=== PATIENT | male | born 1935 | race Hispanic/Latino ===

== ENCOUNTER 2016-08-30 09:54 | Inpatient (IN) | payer MEDICARE ==
[2016-08-30] MEDS ORDERED: Sodium Chloride 0.9% 1,000 ML IV ONE ×2 (10:59→13:29)
--- NOTE | 2016-08-30 10:59 | C.PDOC ---
History Of Present Illness 81-year-old male, presents to the emergency department with complaints of dizziness. patient states that while he was at home this morning, he woke up with dizziness, and when he got out of bed, he fell. States witness called EMS and he was brought to ED for evaluation. Patient notes "I feel dehydrated." Denies chest pain, shortness of breath, numbness/weakness, or any other associated symptoms. No other complaints at this time. 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) Past Medical History Reviewed: Historical Data, Nursing Documentation, Vital Signs Vital Signs: Last Vital Signs Temp 98.3 F 08/30/16 15:30 Pulse 88 08/30/16 15:30 Resp 20 08/30/16 15:30 BP 148/72 08/30/16 15:30 Pulse Ox 99 08/30/16 18:33 - Medical History PMH: No Chronic Diseases Surgical History: No Surg Hx - [facility] Procedures CLOSURE SKIN & SUBCUTANEOUS NEC (11/16/12) Family History: States: No Known Family Hx - Social History Hx Tobacco Use: No Hx Alcohol Use: No Hx Substance Use: No - Immunization History Hx Tetanus Toxoid Vaccination: No Hx Influenza Vaccination: Yes Hx Pneumococcal Vaccination: No Review Of Systems Except As Marked, All Systems Reviewed And Found Negative. Constitutional: Negative for: Fever, Chills Cardiovascular: Negative for: Chest Pain, Palpitations Respiratory: Negative for: Shortness of Breath Gastrointestinal: Negative for: Nausea, Vomiting Musculoskeletal: Negative for: Neck Pain, Back Pain Neurological: Positive for: Dizziness. Negative for: Weakness, Numbness, Headache Physical Exam - Physical Exam Appears: Non-toxic, No Acute Distress, Chronically Ill Skin: Warm, Dry, No Rash Head: Normacephalic, Other (3.5cm laceration above right eyebrow) Eye(s): bilateral: Normal Inspection, PERRL, EOMI Ear(s): Bilateral: Normal Oral Mucosa: Moist Lips: Normal Appearing Neck: Normal ROM, No Midline Cervical Tenderness, No Paracervical Tenderness, Supple Chest: Symmetrical, No Tenderness Cardiovascular: Rhythm Regular, No Friction Rub, No Murmur Respiratory: Normal Breath Sounds, No Accessory Muscle Use, No Rales, No Rhonchi , No Wheezing Gastrointestinal/Abdominal: Soft, No Tenderness Back: Normal Inspection, No CVA Tenderness, No Vertebral Tenderness, No Paraspinal Tenderness Extremity: Normal ROM, No Tenderness, No Swelling Neurological/Psych: Oriented x3, Normal Speech, Normal Cranial Nerves, Normal Motor, Normal Sensation Gait: Steady ED Course And Treatment - Laboratory Results Result Diagrams: 08/30/16 11:04 08/30/16 11:04 O2 Sat by Pulse Oximetry: 99 (on RA) Pulse Ox Interpretation: Normal Procedure: Wound Repair - Time Performed Time Performed: 16:30 - Time Out Time Out: Side verified, Site verified - Procedure Procedure: Wound Repair: forehead laceration - Consent Obtained Consent obtained: Verbal - Performed by Performed by: Mid-level Provider (Umberto) - Indications Indication(s):: Laceration - Location Shape:: Linear Dimensions Length cm: 3.5 Depth:: Epidermis - Anesthetic Technique Anesthetic Technique: Local Local/Regional Anesthetic:: Lidocaine 2% w/epi - Debris Debris:: None - Complexity Complexity:: Simple (one layer) - Wound repair method Sutures:: # (five), Size (5-0), Type (Prolene), Technique (interrupted) Kelsey:: Tissue glue - Patient tolerated procedure Patient Tolerated Procedure:: Well Disposition - Disposition Disposition: HOSPITALIZED Disposition Time: 15:59 Condition: FAIR - POA Present On Arrival: None - Clinical Impression Clinical Impression: Dizziness, Hyponatremia, Head trauma, Forehead laceration, Syncope, UTI ( urinary tract infection) - 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 - Scribe Statement The provider has reviewed the documentation as recorded by the Scribe (Harpreet Okeefe) All medical record entries made by the Scribe were at my direction and personally dictated by me. I have reviewed the chart and agree that the record accurately reflects my personal performance of the history, physical exam, medical decision making, and the department course for this patient. I have also personally directed, reviewed, and agree with the discharge instructions and disposition.
[2016-08-30 11:21] LABS: BASO % 0.6 % (0.0-2.0); EOS % 0.1 % (0.0-4.0); HEMOGLOBIN 11.7 g/dL (12.0-18.0); LYMPH # 0.7 K/uL (1.0-4.3); LYMPH % 10.5 % (20.0-40.0); MEAN CORPUSCULAR HEMOGLOBIN 28.2 pg (27.0-31.0); MEAN CORPUSCULAR HGB CONC 33.3 g/dL (33.0-37.0); MEAN PLATELET VOLUME 7.2 fL (7.2-11.7); MONO # 0.4 K/uL (0.0-0.8); MONO % 5.4 % (0.0-10.0); NEUT # 5.6 K/uL (1.8-7.0); NEUT % 83.4 % (50.0-75.0); RBC 4.13 Mil/uL (4.40-5.90); RED CELL DISTRIBUTION WIDTH 16.3 % (11.5-14.5); WHITE BLOOD COUNT 6.7 K/uL (4.8-10.8)
[2016-08-30 11:22] LABS: MEAN CELL VOLUME 84.7 fL (80.0-94.0)
[2016-08-30 11:23] LABS: INR 1.1; PROTHROMBIN TIME 12.8 SECONDS (9.7-12.2)
[2016-08-30 11:25] LABS: ALBUMIN 3.1 g/dL (3.5-5.0)
[2016-08-30 11:28] LABS: AST/SGOT 37 U/L (17-59); BLOOD UREA NITROGEN 7 mg/dL (9-20); GFR AFRICAN-AMERICAN > 60; GFR NON-AFRICAN AMERICAN > 60
[2016-08-30 11:29] LABS: ALT/SGPT 17 U/L (21-72); CALCIUM 7.7 mg/dl (8.6-10.4); MAGNESIUM 1.8 mg/dL (1.6-2.3)
[2016-08-30 11:31] LABS: VENOUS BLOOD GAS BASE EXCESS 0.3 mmol/L (0.0-2.0); VENOUS BLOOD GAS PCO2 42 mmHg (40-60); VENOUS BLOOD GAS PO2 18 mm/Hg (30-55); VENOUS BLOOD PH 7.39 (7.32-7.43)
--- NOTE | 2016-08-30 12:10 | RAD ---
Chest x-ray single frontal view History: Sepsis. Comparison: 10/28/2014 Findings: Biapical pleural thickening with upper lobe granulomatous changes. Hyperinflation suggestive for COPD and or emphysematous changes. Again identified are multiple calcifications throughout the bilateral hemithoraces suggestive for calcified pleural calcifications. Persistent right hilar prominence. No gross focal infiltrate or effusion. Heart size within normal limits. Impression: No significant interval change.
[2016-08-30] MEDS ORDERED: Sodium Chloride 0.9% 1,000 ML IV SCH (13:15)
--- NOTE | 2016-08-30 14:07 | CT ---
PROCEDURE: CT HEAD WITHOUT CONTRAST. HISTORY: Dizziness, fall, hx of previous stroke COMPARISON: 10/28/2014. TECHNIQUE: Axial computed tomography images were obtained through the head/brain without intravenous contrast. Radiation dose: Total exam DLP = 1096.08 mGy-cm. This CT exam was performed using one or more of the following dose reduction techniques: Automated exposure control, adjustment of the mA and/or kV according to patient size, and/or use of iterative reconstruction technique. FINDINGS: HEMORRHAGE: No intracranial hemorrhage. BRAIN: There are mild chronic microangiopathic changes. There is no mass, mass effect or abnormal extra-axial fluid collection. There is no territorial infarction. There are coarse atherosclerotic calcifications in the cavernous carotid an vertebral arteries. VENTRICLES: There is moderate age-related global parenchymal volume loss and proportionate enlargement of the ventricles and cortical sulci. CALVARIUM: The skull base and calvarium are normal. PARANASAL SINUSES: There is a retention cyst/ polyp in the right maxillary sinus and mucoperiosteal thickening in the left inferior frontal sinus and anterior ethmoid air cells. The remaining included paranasal sinuses are predominantly clear. MASTOID AIR CELLS: Unremarkable as visualized. No inflammatory changes. OTHER FINDINGS: There is ossifications in the falx cerebri. IMPRESSION: No acute intracranial abnormality. Mild chronic microangiopathic changes and moderate age-related global parenchymal volume loss.
[2016-08-30 14:12] LABS: SQUAMOUS EPITHIAL 2 /hpf (0-5); URINE BACTERIA RARE (<OCC); URINE BILIRUBIN NEGATIVE (NEGATIVE); URINE BLOOD 1+ (NEGATIVE); URINE CLARITY Hazy (Clear); URINE COLOR Yellow (YELLOW); URINE GLUCOSE (UA) NORMAL (Normal); URINE LEUKOCYTE ESTERASE 3+ Leu/uL (Negative); URINE NITRATE NEGATIVE (NEGATIVE); URINE PROTEIN NEGATIVE (NEGATIVE); URINE UROBILINOGEN NORMAL mg/dL (0.2-1.0)
[2016-08-30] MEDS ORDERED: Lidocaine 2% w Epi 1:100,000 Inj IJ ONE (14:37)
[2016-08-30] MEDS ORDERED: Ciprofloxacin 400mg/200ml D5W 400 MG/200 ML BAG IV STA (16:04)
[2016-08-30] MEDS ORDERED: Epinephrine /Lidocaine HCL 1:100,000/2% 30 ml INJ ONE (16:19)
[2016-08-30] MEDS ORDERED: Bacitracin 500 Units/gm Oint Foilpak UD TOP ONE (16:19)
[2016-08-30] MEDS ORDERED: Bacitracin 500 Units/gm Oint Foilpak UD ONE (16:22)
[2016-08-30] MEDS ORDERED: Ciprofloxacin 400mg/200ml D5W 400 MG/200 ML BAG IVPB ONE (16:23)
[2016-08-31] MEDS: Sodium Chloride 0.9% 1,000 ML IV SCH (00:57)
[2016-08-31 07:12] LABS: BASO % 0.5 % (0.0-2.0); EOS % 0.4 % (0.0-4.0); HEMOGLOBIN 9.1 g/dL (12.0-18.0); LYMPH # 0.7 K/uL (1.0-4.3); LYMPH % 12.4 % (20.0-40.0); MEAN CELL VOLUME 84.5 fL (80.0-94.0); MEAN CORPUSCULAR HEMOGLOBIN 28.3 pg (27.0-31.0); MEAN CORPUSCULAR HGB CONC 33.4 g/dL (33.0-37.0); MEAN PLATELET VOLUME 6.8 fL (7.2-11.7); MONO # 0.5 K/uL (0.0-0.8); MONO % 8.6 % (0.0-10.0); NEUT # 4.4 K/uL (1.8-7.0); NEUT % 78.1 % (50.0-75.0); RBC 3.21 Mil/uL (4.40-5.90); RED CELL DISTRIBUTION WIDTH 16.3 % (11.5-14.5); WHITE BLOOD COUNT 5.7 K/uL (4.8-10.8)
[2016-08-31 08:03] LABS: ALBUMIN 2.7 g/dL (3.5-5.0)
[2016-08-31 08:05] LABS: GFR AFRICAN-AMERICAN > 60; GFR NON-AFRICAN AMERICAN > 60
[2016-08-31 08:06] LABS: ALB/GLOB RATIO 0.8 (1.0-2.1); ALT/SGPT 25 U/L (21-72); AST/SGOT 41 U/L (17-59); BLOOD UREA NITROGEN 3 mg/dL (9-20)
[2016-08-31 08:07] LABS: CALCIUM 7.4 mg/dl (8.6-10.4)
[2016-08-31 08:23] LABS: PROLACTIN 14.4 ng/mL (3.7-17.9)
--- NOTE | 2016-08-31 08:30 | CP.PCM.HP ---
History of Present Illness - History of Present Illness History of Present Illness: 81 y/o male with Dementia, COPD, HTN, Carotid Stenosis w/ s/p CVA. Pt awaken dizzy and w feeling weak. Patient stood up and pass out. He sustain a laceration on R forehead. In ER, he was noted to be hyponatremic. Present on Admission - Present on Admission Any Indicators Present on Admission: Yes History of DVT/PE: No History of Uncontrolled Diabetes: No Urinary Catheter: No Decubitus Ulcer Present: No Review of Systems - Constitutional Constitutional: Daytime Sleepiness, Lethargy, Malaise, Weakness - EENT Eyes: absent: Itchy Eyes, Sees Flashes, Spots in Vision Ears: Decreased Hearing, Dizziness. absent: Ear Discharge, Ear Pain Nose/Mouth/Throat: absent: Nasal Discharge, Nasal Trauma, Bleeding Gums, Dysphagia - Cardiovascular Cardiovascular: Pedal Edema. absent: Chest Pain, Diaphoresis, Dyspnea, Edema, Irregular Heart Rhythm, Leg Edema, Leg Ulcers, Orthopnea - Gastrointestinal Gastrointestinal: absent: Abdominal Pain, Diarrhea, Dysphagia, Heartburn, Nausea , Vomiting - Genitourinary Genitourinary: Urinary Frequency, Urinary Urgency. absent: Dysuria, Bladder Distension - Musculoskeletal Musculoskeletal: absent: Abnormal Gait, Back Pain, Loss of Height, Muscle Weakness, Myalgias - Neurological Neurological: absent: Behavioral Changes, Numbness, Lack of Coordination Past Patient History - Infectious Disease Hx of Infectious Diseases: None - Past Medical History & Family History Past Medical History?: No - Past Social History Smoking Status: Light Smoker < 10 Cigarettes Daily - NEUROLOGICAL HX Cerebrovascular Accident: Yes (7 YEARS AGO) - MUSCULOSKELETAL/RHEUMATOLOGICAL Hx Falls: Yes - PSYCHIATRIC Hx Substance Use: No - SURGICAL HISTORY Hx Surgeries: No - ANESTHESIA Hx Anesthesia: No Meds Allergies/Adverse Reactions: Allergies Allergy/AdvReac Type Severity Reaction Status Date / Time No Known Allergies Allergy Verified 08/30/16 10:34 Physical Exam - Constitutional Appears: No Acute Distress - Eye Exam Eye Exam: Normal appearance - ENT Exam ENT Exam: Mucous Membranes Moist - Neck Exam Neck exam: Negative for: Lymphadenopathy, Normal Inspection - Respiratory Exam Respiratory Exam: Rales, Rhonchi, Wheezes. absent: Decreased Breath Sounds - Cardiovascular Exam Cardiovascular Exam: REGULAR RHYTHM, +S1, +S2, Systolic Murmur. absent: Gallop , JVD - GI/Abdominal Exam GI & Abdominal Exam: Soft. absent: Mass, Tenderness - Extremities Exam Extremities exam: Positive for: full ROM, normal capillary refill. Negative for : calf tenderness, joint swelling, pedal edema Results - Vital Signs Recent Vital Signs: Last Vital Signs Temp 97.3 F L 08/31/16 07:35 Pulse 100 H 08/31/16 07:35 Resp 20 08/31/16 07:35 BP 177/98 H 08/31/16 07:35 Pulse Ox 100 08/31/16 07:35 - Labs Result Diagrams: 08/31/16 06:37 08/31/16 07:32 Labs: Laboratory Results - last 24 hr 08/31/16 08/31/16 06:37 07:32 WBC 5.7 RBC 3.21 L Hgb 9.1 L D Hct 27.2 L MCV 84.5 MCH 28.3 MCHC 33.4 RDW 16.3 H Plt Count 201 MPV 6.8 L Neut % (Auto) 78.1 H Lymph % (Auto) 12.4 L [place] % (Auto) 8.6 Eos % (Auto) 0.4 Baso % (Auto) 0.5 Neut # 4.4 Lymph # 0.7 L [place] # 0.5 Eos # 0.0 Baso # 0.0 Sodium 124 L Potassium 3.2 L Chloride 93 L Carbon Dioxide 20 L Anion Gap 14 BUN 3 L Creatinine 0.4 L Est GFR ( Amer) > 60 Est GFR (Non-Af Amer) > 60 Random Glucose 82 Calcium 7.4 L Total Bilirubin 2.0 H AST 41 ALT 25 Alkaline Phosphatase 54 Total Protein 5.9 L Albumin 2.7 L Globulin 3.2 Albumin/Globulin Ratio 0.8 L Prolactin 14.4 - EKG Data EKG Interpreted by: Other Assessment & Plan - Assessment and Plan (Free Text) Assessment: Hyponatremia; Syncope COPD, HTN, Carotid Stenosis Restart BP; Lasix daily Serial labs electrolyte supplement Check TSH, cortisol level
[2016-08-31] MEDS: Potassium Chloride 20 mEq ER Tab PO SCH ×2 (10:47→18:10)
--- NOTE | 2016-08-31 12:44 | CARD ---
APPROVED REPORT EKG Measurement Heart [id number] <Conclusion> Normal sinus rhythm Normal ECG
--- NOTE | 2016-08-31 14:02 | MRI ---
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 TECHNIQUE: Multiplanar, multisequence MR images of the brain were obtained without intravenous contrast enhancement. FINDINGS: HEMORRHAGE: No acute parenchymal, subarachnoid or extra-axial hemorrhage. Questionable small bilateral frontal subdural hygromas. No the evidence of hemosiderin deposition identified on gradient echo weighted imaging. DWI: No evidence of acute -subacute infarct seen on diffusion-weighted imaging BRAIN PARENCHYMA: Mild chronic periventricular white matter ischemic changes seen extending peripherally into the deep and subcortical white matter of both cerebral hemispheres. . Moderate central volume loss evidenced by disproportionate enlargement of the ventricles as compared sulci. VENTRICLES: No evidence of obstructive hydrocephalus. CRANIUM: No acute calvarial abnormalities. ORBITS: Orbits and contents unremarkable. PARANASAL SINUSES/MASTOIDS: Note again made of a mucous retention cyst right maxillary antrum. VASCULAR SYSTEM: Skull base flow voids intact. OTHER FINDINGS: None. IMPRESSION: No acute intracranial hemorrhage. . Questionable small bilateral frontal subdural hygromas. Suspect mild right frontal scalp swelling Mild chronic white matter ischemic changes. . Moderate central volume loss
--- NOTE | 2016-08-31 19:06 | CP.PCM.CON ---
History of Present Illness - History of Present Illness History of Present Illness: SYNCOPAL EPISODE Past Patient History - Infectious Disease Hx of Infectious Diseases: None - Past Medical History & Family History Past Medical History?: No - Past Social History Smoking Status: Light Smoker < 10 Cigarettes Daily - NEUROLOGICAL HX Cerebrovascular Accident: Yes (7 YEARS AGO) - MUSCULOSKELETAL/RHEUMATOLOGICAL Hx Falls: Yes - PSYCHIATRIC Hx Substance Use: No - SURGICAL HISTORY Hx Surgeries: No - ANESTHESIA Hx Anesthesia: No Meds Allergies/Adverse Reactions: Allergies Allergy/AdvReac Type Severity Reaction Status Date / Time No Known Allergies Allergy Verified 08/30/16 10:34 - Medications Medications: Current Medications Albuterol/Ipratropium (Duoneb 3 Mg/0.5 Mg (3 Ml) Ud) 3 ml INH RQ6 [facility] Amlodipine Besylate (Norvasc) 5 mg PO DAILY [facility] Last Admin: 08/31/16 10:47 Dose: 5 mg Ciprofloxacin (Cipro) 500 mg PO BID [facility] Last Admin: 08/31/16 18:10 Dose: 500 mg Furosemide (Lasix) 20 mg IVP DAILY [facility] Stop: 09/02/16 23:59 Last Admin: 08/31/16 10:46 Dose: 20 mg Sodium Chloride (Sodium Chloride 0.9%) 1,000 mls @ 70 mls/hr IV .[id number] [facility] Last Admin: 08/31/16 00:57 Dose: 70 mls/hr Potassium Chloride (K-Dur 20 Meq Er Tab) 20 meq PO BID [facility] Stop: 09/02/16 23:59 Last Admin: 08/31/16 18:10 Dose: 20 meq Physical Exam - Constitutional Appears: Confused, Cachectic - Head Exam Additional comments: TRAUMATIC ON RIGHT EYE BROW WITH STITCHES - Neck Exam Neck exam: Positive for: Normal Inspection - Respiratory Exam Respiratory Exam: Clear to Auscultation Bilateral, NORMAL BREATHING PATTERN - Extremities Exam Additional comments: DISTAL MUSCLE ATROPY WITH INCREASED TONE - Neurological Exam Neurological exam: Altered Additional comments: DISORIENTED AND CONFUSED WITH SIGNIFICANT BILATERAL CEREBRAL DYSFUNCTION - Skin Skin Exam: Abrasion, Dry Results - Vital Signs Recent Vital Signs: Last Vital Signs Temp 97.8 F 08/31/16 16:05 Pulse 88 08/31/16 16:05 Resp 20 08/31/16 16:05 BP 125/65 08/31/16 16:05 Pulse Ox 100 08/31/16 16:05 - Labs Result Diagrams: 08/31/16 06:37 08/31/16 07:32 Labs: Laboratory Results - last 24 hr 08/31/16 08/31/16 06:37 07:32 WBC 5.7 RBC 3.21 L Hgb 9.1 L D Hct 27.2 L MCV 84.5 MCH 28.3 MCHC 33.4 RDW 16.3 H Plt Count 201 MPV 6.8 L Neut % (Auto) 78.1 H Lymph % (Auto) 12.4 L [place] % (Auto) 8.6 Eos % (Auto) 0.4 Baso % (Auto) 0.5 Neut # 4.4 Lymph # 0.7 L [place] # 0.5 Eos # 0.0 Baso # 0.0 Sodium 124 L Potassium 3.2 L Chloride 93 L Carbon Dioxide 20 L Anion Gap 14 BUN 3 L Creatinine 0.4 L Est GFR ( Amer) > 60 Est GFR (Non-Af Amer) > 60 Random Glucose 82 Calcium 7.4 L Total Bilirubin 2.0 H AST 41 ALT 25 Alkaline Phosphatase 54 Total Protein 5.9 L Albumin 2.7 L Globulin 3.2 Albumin/Globulin Ratio 0.8 L Prolactin 14.4 Assessment & Plan (1) Encephalopathy, metabolic Status: Acute Priority: High - Assessment and Plan (Free Text) Assessment: ? POST ICTAL - Date & Time Date: 08/31/16 Time: 03:20
[2016-08-31] MEDS: Albuterol-Ipratrop 3 mg / 0.5 (3 ml) UD INH SCH (19:32)
[2016-09-01] MEDS: Sodium Chloride 0.9% 1,000 ML IV SCH ×3 (05:25→17:40)
[2016-09-01] MEDS: Albuterol-Ipratrop 3 mg / 0.5 (3 ml) UD INH SCH ×3 (07:59→19:27)
[2016-09-01 08:36] LABS: GFR AFRICAN-AMERICAN > 60; GFR NON-AFRICAN AMERICAN > 60
[2016-09-01 08:37] LABS: BLOOD UREA NITROGEN 5 mg/dL (9-20); CALCIUM 7.6 mg/dl (8.6-10.4); MAGNESIUM 1.7 mg/dL (1.6-2.3)
[2016-09-01 08:43] LABS: CORTISOL AM 11.7 ug/dL (4.46-22.7)
--- NOTE | 2016-09-01 08:52 | CP.PCM.PN ---
Subjective - Date & Time of Evaluation Date of Evaluation: 09/01/16 Time of Evaluation: 08:10 - Subjective Subjective: Pt no complain; eating well No CP, no SOB, no edema, (+) dry cough Objective - Vital Signs/Intake and Output Vital Signs (last 24 hours): Temp Pulse Resp BP Pulse Ox 97.5 F L 80 18 127/74 99 09/01/16 07:05 09/01/16 07:05 09/01/16 07:05 09/01/16 07:05 09/01/16 07:05 Intake and Output: 09/01/16 09/01/16 06:59 18:59 Intake Total 880 Output Total 700 Balance 180 - Medications Medications: Current Medications Albuterol/Ipratropium (Duoneb 3 Mg/0.5 Mg (3 Ml) Ud) 3 ml INH RQ6 [facility] Last Admin: 09/01/16 07:59 Dose: Not Given Amlodipine Besylate (Norvasc) 5 mg PO DAILY [facility] Last Admin: 08/31/16 10:47 Dose: 5 mg Ciprofloxacin (Cipro) 500 mg PO BID [facility] Last Admin: 08/31/16 18:10 Dose: 500 mg Furosemide (Lasix) 20 mg IVP DAILY [facility] Stop: 09/02/16 23:59 Last Admin: 08/31/16 10:46 Dose: 20 mg Sodium Chloride (Sodium Chloride 0.9%) 1,000 mls @ 70 mls/hr IV .[id number] [facility] Last Admin: 08/31/16 00:57 Dose: 70 mls/hr Potassium Chloride (K-Dur 20 Meq Er Tab) 20 meq PO BID [facility] Stop: 09/02/16 23:59 Last Admin: 08/31/16 18:10 Dose: 20 meq - Labs Labs: 08/31/16 06:37 09/01/16 07:52 PT 12.8 SECONDS (9.7-12.2) H 08/30/16 11:04 INR 1.1 08/30/16 11:04 APTT 34 SECONDS (21-34) 08/30/16 11:04 - Constitutional Appears: No Acute Distress - Eye Exam Eye Exam: Normal appearance - ENT Exam ENT Exam: Mucous Membranes Moist - Neck Exam Neck Exam: Full ROM. absent: Lymphadenopathy, Thyromegaly - Respiratory Exam Respiratory Exam: Decreased Breath Sounds. absent: Rales, Rhonchi, Wheezes - Cardiovascular Exam Cardiovascular Exam: REGULAR RHYTHM, +S1, +S2, Murmur. absent: Gallop, JVD - GI/Abdominal Exam GI & Abdominal Exam: Soft. absent: Tenderness, Mass - Extremities Exam Extremities Exam: Full ROM, Normal Capillary Refill. absent: Calf Tenderness, Joint Swelling, Pedal Edema Assessment and Plan - Assessment and Plan (Free Text) Assessment: Hyponatremia - improve; Syncope w/ Laceration on R forehead HTN, COPD, carotid Stenosis Dementia Cont meds; encourage to ambulate
[2016-09-01] MEDS ORDERED: Potassium Chloride 20 mEq ER Tab PO ONE (10:10)
[2016-09-01] MEDS: Potassium Chloride 20 mEq ER Tab PO SCH ×2 (10:20→17:39)
--- NOTE | 2016-09-01 15:57 | CP.PCM.CON ---
History of Present Illness - History of Present Illness History of Present Illness: 81 y/o male with Dementia, COPD, HTN, Carotid Stenosis w/ s/p CVA. Pt awaken dizzy and w feeling weak. Patient stood up and pass out. He sustain a laceration on R forehead. In ER, he was noted to be hyponatremic. Despite IV fluids patient has remained hyponatremic Poor historian Review of Systems - Review of Systems Systems not reviewed;Unavailable: Dementia Past Patient History - Infectious Disease Hx of Infectious Diseases: None - Past Medical History & Family History Past Medical History?: No Past Family History: Reviewed and not pertinent - Past Social History Smoking Status: Light Smoker < 10 Cigarettes Daily Chewing Tobacco Use: No Cigar Use: No Alcohol: Occasional - CARDIAC Hx Hypertension: Yes - PULMONARY Hx Chronic Obstructive Pulmonary Disease (COPD): Yes - NEUROLOGICAL HX Cerebrovascular Accident: Yes (7 YEARS AGO) - MUSCULOSKELETAL/RHEUMATOLOGICAL Hx Falls: Yes - PSYCHIATRIC Hx Substance Use: No - SURGICAL HISTORY Hx Surgeries: No - ANESTHESIA Hx Anesthesia: No Meds Allergies/Adverse Reactions: Allergies Allergy/AdvReac Type Severity Reaction Status Date / Time No Known Allergies Allergy Verified 08/30/16 10:34 - Medications Medications: Current Medications Albuterol/Ipratropium (Duoneb 3 Mg/0.5 Mg (3 Ml) Ud) 3 ml INH RQ6 [facility] Last Admin: 09/01/16 15:42 Dose: Not Given Amlodipine Besylate (Norvasc) 5 mg PO DAILY [facility] Last Admin: 09/01/16 10:20 Dose: 5 mg Ciprofloxacin (Cipro) 500 mg PO BID [facility] Last Admin: 09/01/16 10:20 Dose: 500 mg Furosemide (Lasix) 20 mg IVP DAILY [facility] Stop: 09/02/16 23:59 Last Admin: 09/01/16 10:20 Dose: 20 mg Sodium Chloride (Sodium Chloride 0.9%) 1,000 mls @ 70 mls/hr IV .[id number] [facility] Last Admin: 09/01/16 14:44 Dose: 70 mls/hr Potassium Chloride (K-Dur 20 Meq Er Tab) 20 meq PO BID [facility] Stop: 09/02/16 23:59 Last Admin: 09/01/16 10:20 Dose: 20 meq Physical Exam - Constitutional Appears: No Acute Distress, Chronically Ill - Head Exam Additional comments: right forehead laceration - Eye Exam Eye Exam: EOMI, Normal appearance - Neck Exam Neck exam: Positive for: Normal Inspection. Negative for: Tenderness - Respiratory Exam Respiratory Exam: Clear to Auscultation Bilateral, NORMAL BREATHING PATTERN - Cardiovascular Exam Cardiovascular Exam: REGULAR RHYTHM, +S1 - GI/Abdominal Exam GI & Abdominal Exam: Soft. absent: Tenderness - Extremities Exam Extremities exam: Negative for: pedal edema, tenderness - Psychiatric Exam Psychiatric exam: Depressed, Flat Affect Results - Vital Signs Recent Vital Signs: Last Vital Signs Temp 97.5 F L 09/01/16 15:39 Pulse 88 09/01/16 15:39 Resp 20 09/01/16 15:39 BP 145/80 09/01/16 15:39 Pulse Ox 100 09/01/16 15:39 - Labs Result Diagrams: 08/31/16 06:37 09/01/16 07:52 Labs: Laboratory Results - last 24 hr 08/31/16 09/01/16 19:08 07:52 Sodium 127 L Potassium 3.2 L Chloride 99 Carbon Dioxide 20 L Anion Gap 11 BUN 5 L Creatinine 0.4 L Est GFR ( Amer) > 60 Est GFR (Non-Af Amer) > 60 Random Glucose 84 Calcium 7.6 L Magnesium 1.7 Prostate Specific Ag 41.2 H TSH 3rd Generation 3.66 Cortisol AM Sample 11.7 Ur Random Sodium 99 Assessment & Plan (1) HTN (hypertension) Status: Acute (2) Dizziness Status: Acute (3) Encephalopathy, metabolic Status: Acute Priority: High (4) Forehead laceration Status: Acute (5) Hyponatremia Status: Chronic - Assessment and Plan (Free Text) Plan: Will pursue workup for SIADH Continue IV saline for now might need tovalptan
[2016-09-01 19:55] LABS: OSMOLALITY,URINE 365 mosm/kg (300-1000)
--- NOTE | 2016-09-01 23:11 | CP.PCM.CON ---
History of Present Illness - History of Present Illness History of Present Illness: CC: syncope 81 y/o male with Dementia, COPD, HTN, Carotid Stenosis w/ s/p CVA. Pt awaken dizzy and w feeling weak. Patient stood up and pass out. He sustain a laceration on R forehead. In ER, he was noted to be hyponatremic Past Patient History - Infectious Disease Hx of Infectious Diseases: None - Past Medical History & Family History Past Medical History?: No Past Family History: Reviewed and not pertinent - Past Social History Smoking Status: Light Smoker < 10 Cigarettes Daily Chewing Tobacco Use: No Cigar Use: No Alcohol: Occasional - CARDIAC Hx Hypertension: Yes - PULMONARY Hx Chronic Obstructive Pulmonary Disease (COPD): Yes - NEUROLOGICAL HX Cerebrovascular Accident: Yes (7 YEARS AGO) - MUSCULOSKELETAL/RHEUMATOLOGICAL Hx Falls: Yes - PSYCHIATRIC Hx Substance Use: No - SURGICAL HISTORY Hx Surgeries: No - ANESTHESIA Hx Anesthesia: No Meds Allergies/Adverse Reactions: Allergies Allergy/AdvReac Type Severity Reaction Status Date / Time No Known Allergies Allergy Verified 08/30/16 10:34 - Medications Medications: Current Medications Albuterol/Ipratropium (Duoneb 3 Mg/0.5 Mg (3 Ml) Ud) 3 ml INH RQ6 [facility] Last Admin: 09/01/16 19:27 Dose: 3 ml Amlodipine Besylate (Norvasc) 5 mg PO DAILY [facility] Last Admin: 09/01/16 10:20 Dose: 5 mg Ciprofloxacin (Cipro) 500 mg PO BID [facility] Last Admin: 09/01/16 17:39 Dose: 500 mg Sodium Chloride (Sodium Chloride 0.9%) 1,000 mls @ 100 mls/hr IV .Q10H [facility] Last Admin: 09/01/16 17:40 Dose: 100 mls/hr Potassium Chloride (K-Dur 20 Meq Er Tab) 20 meq PO BID [facility] Stop: 09/02/16 23:59 Last Admin: 09/01/16 17:39 Dose: 20 meq Physical Exam - Constitutional Appears: Non-toxic - Head Exam Additional comments: laceration in right forehead - Eye Exam Eye Exam: absent: Scleral icterus - ENT Exam ENT Exam: Mucous Membranes Moist - Neck Exam Neck exam: Positive for: Full Rom - Respiratory Exam Respiratory Exam: NORMAL BREATHING PATTERN - Extremities Exam Extremities exam: Positive for: pedal edema. Negative for: calf tenderness - Neurological Exam Neurological exam: Alert Results - Vital Signs Recent Vital Signs: Last Vital Signs Temp 97.5 F L 09/01/16 15:39 Pulse 88 09/01/16 15:39 Resp 20 09/01/16 15:39 BP 145/80 09/01/16 15:39 Pulse Ox 100 09/01/16 15:39 - Labs Result Diagrams: 08/31/16 06:37 09/01/16 07:52 Labs: Laboratory Results - last 24 hr 09/01/16 09/01/16 07:52 19:46 Sodium 127 L Potassium 3.2 L Chloride 99 Carbon Dioxide 20 L Anion Gap 11 BUN 5 L Creatinine 0.4 L Est GFR ( Amer) > 60 Est GFR (Non-Af Amer) > 60 Random Glucose 84 Calcium 7.6 L Magnesium 1.7 Prostate Specific Ag 41.2 H TSH 3rd Generation 3.66 Cortisol AM Sample 11.7 Urine Osmolality 365 Ur Random Sodium 142 Assessment & Plan - Assessment and Plan (Free Text) Assessment: Syncope ?etiol r/o Vasovagal r/o TIA r/o Occult valvular disease r/o Arrhythmias Hyponatremia Plan: ECHO Lexiscan - when more stable ASA 81mg po od Tilt table test - when more stable Consider Loop recorder implant Neuro wotk-up
[2016-09-02] MEDS: Sodium Chloride 0.9% 1,000 ML IV SCH ×3 (00:34→11:15)
[2016-09-02] MEDS: Albuterol-Ipratrop 3 mg / 0.5 (3 ml) UD INH SCH ×4 (01:04→19:36)
--- NOTE | 2016-09-02 07:33 | CP.PCM.PN ---
Subjective - Date & Time of Evaluation Date of Evaluation: 09/02/16 Time of Evaluation: 07:33 - Subjective Subjective: SIADH ASYMPTOMATIC NO SEIZURE NEPHROLOGY ON BOARD CORRECT ELECTROLYTES AMBULATION ON SUPER VISION PT Objective - Vital Signs/Intake and Output Vital Signs (last 24 hours): Temp Pulse Resp BP Pulse Ox 98.2 F 93 H 20 130/66 100 09/02/16 04:46 09/02/16 04:46 09/02/16 04:46 09/02/16 04:46 09/01/16 23:30 Intake and Output: 09/02/16 09/02/16 06:59 18:59 Output Total 500 Balance -500 - Medications Medications: Current Medications Albuterol/Ipratropium (Duoneb 3 Mg/0.5 Mg (3 Ml) Ud) 3 ml INH RQ6 [facility] Last Admin: 09/02/16 01:04 Dose: Not Given Amlodipine Besylate (Norvasc) 5 mg PO DAILY [facility] Last Admin: 09/01/16 10:20 Dose: 5 mg Ciprofloxacin (Cipro) 500 mg PO BID [facility] Last Admin: 09/01/16 17:39 Dose: 500 mg Sodium Chloride (Sodium Chloride 0.9%) 1,000 mls @ 100 mls/hr IV .Q10H [facility] Last Admin: 09/02/16 02:57 Dose: Not Given Potassium Chloride (K-Dur 20 Meq Er Tab) 20 meq PO BID [facility] Stop: 09/02/16 23:59 Last Admin: 09/01/16 17:39 Dose: 20 meq - Labs Labs: 08/31/16 06:37 09/01/16 07:52 PT 12.8 SECONDS (9.7-12.2) H 08/30/16 11:04 INR 1.1 08/30/16 11:04 APTT 34 SECONDS (21-34) 08/30/16 11:04 Assessment and Plan (1) Encephalopathy, metabolic Status: Acute
[2016-09-02 08:18] LABS: BASO # 0.1 K/uL (0.0-0.2); BASO % 1.2 % (0.0-2.0); EOS # 0.1 K/uL (0.0-0.7); EOS % 1.6 % (0.0-4.0); HEMOGLOBIN 10.6 g/dL (12.0-18.0); LYMPH # 1.6 K/uL (1.0-4.3); LYMPH % 27.1 % (20.0-40.0); MEAN CELL VOLUME 83.8 fL (80.0-94.0); MEAN CORPUSCULAR HEMOGLOBIN 28.6 pg (27.0-31.0); MEAN CORPUSCULAR HGB CONC 34.2 g/dL (33.0-37.0); MONO # 0.6 K/uL (0.0-0.8); MONO % 10.7 % (0.0-10.0); NEUT # 3.6 K/uL (1.8-7.0); NEUT % 59.4 % (50.0-75.0); RBC 3.69 Mil/uL (4.40-5.90); RED CELL DISTRIBUTION WIDTH 16.7 % (11.5-14.5); WHITE BLOOD COUNT 6.1 K/uL (4.8-10.8)
[2016-09-02 08:44] LABS: GFR AFRICAN-AMERICAN > 60; GFR NON-AFRICAN AMERICAN > 60
[2016-09-02 08:45] LABS: BLOOD UREA NITROGEN 6 mg/dL (9-20); CALCIUM 7.7 mg/dl (8.6-10.4)
--- NOTE | 2016-09-02 08:59 | CP.PCM.PN ---
Subjective - Date & Time of Evaluation Date of Evaluation: 09/02/16 Time of Evaluation: 08:55 - Subjective Subjective: no chest pain no sob no syncope Objective - Vital Signs/Intake and Output Vital Signs (last 24 hours): Temp Pulse Resp BP Pulse Ox 98.2 F 93 H 20 130/66 100 09/02/16 04:46 09/02/16 04:46 09/02/16 04:46 09/02/16 04:46 09/01/16 23:30 Intake and Output: 09/02/16 09/02/16 06:59 18:59 Output Total 500 Balance -500 - Medications Medications: Current Medications Albuterol/Ipratropium (Duoneb 3 Mg/0.5 Mg (3 Ml) Ud) 3 ml INH RQ6 [facility] Last Admin: 09/02/16 08:03 Dose: 3 ml Amlodipine Besylate (Norvasc) 5 mg PO DAILY [facility] Last Admin: 09/01/16 10:20 Dose: 5 mg Ciprofloxacin (Cipro) 500 mg PO BID [facility] Last Admin: 09/01/16 17:39 Dose: 500 mg Sodium Chloride (Sodium Chloride 0.9%) 1,000 mls @ 100 mls/hr IV .Q10H [facility] Last Admin: 09/02/16 02:57 Dose: Not Given Potassium Chloride (K-Dur 20 Meq Er Tab) 20 meq PO BID [facility] Stop: 09/02/16 23:59 Last Admin: 09/01/16 17:39 Dose: 20 meq - Labs Labs: 09/02/16 08:09 09/02/16 08:09 PT 12.8 SECONDS (9.7-12.2) H 08/30/16 11:04 INR 1.1 08/30/16 11:04 APTT 34 SECONDS (21-34) 08/30/16 11:04 - Constitutional Appears: Chronically Ill - Eye Exam Eye Exam: absent: Scleral icterus - ENT Exam ENT Exam: Mucous Membranes Moist - Neck Exam Neck Exam: Full ROM - Respiratory Exam Respiratory Exam: Decreased Breath Sounds - Cardiovascular Exam Cardiovascular Exam: REGULAR RHYTHM - GI/Abdominal Exam GI & Abdominal Exam: Normal Bowel Sounds - Extremities Exam Extremities Exam: absent: Calf Tenderness, Pedal Edema - Neurological Exam Neurological Exam: Altered Assessment and Plan - Assessment and Plan (Free Text) Assessment: Syncope Plan: Lexiscan in am Tilt table test in am.
--- NOTE | 2016-09-02 09:20 | CP.PCM.PN ---
Subjective - Date & Time of Evaluation Date of Evaluation: 09/02/16 Time of Evaluation: 09:00 - Subjective Subjective: Pt no complain; State feels much stronger No CP, no SOB, no edema; (+) dry cough at times PSA noted Objective - Vital Signs/Intake and Output Vital Signs (last 24 hours): Temp Pulse Resp BP Pulse Ox 98.2 F 93 H 20 130/66 100 09/02/16 04:46 09/02/16 04:46 09/02/16 04:46 09/02/16 04:46 09/01/16 23:30 Intake and Output: 09/02/16 09/02/16 06:59 18:59 Output Total 500 Balance -500 - Medications Medications: Current Medications Albuterol/Ipratropium (Duoneb 3 Mg/0.5 Mg (3 Ml) Ud) 3 ml INH RQ6 [facility] Last Admin: 09/02/16 08:03 Dose: 3 ml Amlodipine Besylate (Norvasc) 5 mg PO DAILY [facility] Last Admin: 09/01/16 10:20 Dose: 5 mg Ciprofloxacin (Cipro) 500 mg PO BID [facility] Last Admin: 09/01/16 17:39 Dose: 500 mg Sodium Chloride (Sodium Chloride 0.9%) 1,000 mls @ 100 mls/hr IV .Q10H [facility] Last Admin: 09/02/16 02:57 Dose: Not Given Potassium Chloride (K-Dur 20 Meq Er Tab) 20 meq PO BID [facility] Stop: 09/02/16 23:59 Last Admin: 09/01/16 17:39 Dose: 20 meq - Labs Labs: 09/02/16 08:09 09/02/16 08:09 PT 12.8 SECONDS (9.7-12.2) H 08/30/16 11:04 INR 1.1 08/30/16 11:04 APTT 34 SECONDS (21-34) 08/30/16 11:04 - Constitutional Appears: No Acute Distress - Eye Exam Eye Exam: Normal appearance - ENT Exam ENT Exam: Mucous Membranes Moist - Neck Exam Neck Exam: Full ROM. absent: Lymphadenopathy, Meningismus, Normal Inspection - Respiratory Exam Respiratory Exam: Decreased Breath Sounds. absent: Rales, Rhonchi, Wheezes - Cardiovascular Exam Cardiovascular Exam: +S1, Murmur. absent: Gallop, REGULAR RHYTHM, JVD - GI/Abdominal Exam GI & Abdominal Exam: Soft. absent: Tenderness, Mass - Extremities Exam Extremities Exam: Joint Swelling. absent: Calf Tenderness, Full ROM, Normal Capillary Refill Assessment and Plan - Assessment and Plan (Free Text) Assessment: Inc PSA Syncope w/ R forehead laceration HTN, COPD, carotid stenosis For urology eval; Cont meds serial labs
[2016-09-02] MEDS: Potassium Chloride 20 mEq ER Tab PO SCH ×2 (10:14→18:31)
--- NOTE | 2016-09-02 15:56 | PCM.URO ---
Urology Progress Note - Objective Lab Results Last 24 Hours: Laboratory Results - last 24 hr 09/01/16 09/02/16 09/02/16 19:46 08:09 08:09 WBC 6.1 RBC 3.69 L Hgb 10.6 L Hct 31.0 L MCV 83.8 MCH 28.6 MCHC 34.2 RDW 16.7 H Plt Count 250 MPV 7.0 L Neut % (Auto) 59.4 Lymph % (Auto) 27.1 [place] % (Auto) 10.7 H Eos % (Auto) 1.6 Baso % (Auto) 1.2 Neut # 3.6 Lymph # 1.6 [place] # 0.6 Eos # 0.1 Baso # 0.1 Sodium 130 L Potassium 3.8 Chloride 102 Carbon Dioxide 20 L Anion Gap 12 BUN 6 L Creatinine 0.4 L Est GFR ( Amer) > 60 Est GFR (Non-Af Amer) > 60 Random Glucose 84 Uric Acid 2.0 L Calcium 7.7 L Urine Osmolality 365 Ur Random Sodium 142 Intake & Output: Intake & Output 09/01/16 09/02/16 09/02/16 18:59 06:59 18:59 Intake Total 860 Output Total 650 500 Balance 210 -500 Intake: Intake, IV Amount 560 Left Forearm 560 Oral 300 Output: Urine 650 500 Urine, Voided 650 500 Vital Signs: Vital Signs - 24 hr 09/01/16 09/02/16 09/02/16 23:30 00:45 04:46 Temperature 98.1 F 98.2 F Pulse Rate 91 H 86 93 H Respiratory 20 20 Rate Blood Pressure 159/82 H 130/66 O2 Sat by Pulse 100 Oximetry
--- NOTE | 2016-09-02 19:48 | CP.PCM.PN ---
Subjective - Date & Time of Evaluation Date of Evaluation: 09/02/16 Time of Evaluation: 10:00 - Subjective Subjective: seen and examined reports good po intake denies any n/v/d na 130 noted Objective - Vital Signs/Intake and Output Vital Signs (last 24 hours): Temp Pulse Resp BP Pulse Ox 98 F 66 20 106/68 100 09/02/16 15:00 09/02/16 15:00 09/02/16 15:00 09/02/16 15:00 09/02/16 15:00 Intake and Output: 09/02/16 09/03/16 18:59 06:59 Intake Total 1280 Output Total 400 Balance 880 - Medications Medications: Current Medications Albuterol/Ipratropium (Duoneb 3 Mg/0.5 Mg (3 Ml) Ud) 3 ml INH RQ6 [facility] Last Admin: 09/02/16 19:36 Dose: 3 ml Amlodipine Besylate (Norvasc) 5 mg PO DAILY [facility] Last Admin: 09/02/16 10:13 Dose: 5 mg Ciprofloxacin (Cipro) 500 mg PO BID [facility] Last Admin: 09/02/16 18:31 Dose: 500 mg Potassium Chloride (K-Dur 20 Meq Er Tab) 20 meq PO BID [facility] Stop: 09/02/16 23:59 Last Admin: 09/02/16 18:31 Dose: 20 meq - Labs Labs: 09/02/16 08:09 09/02/16 08:09 PT 12.8 SECONDS (9.7-12.2) H 08/30/16 11:04 INR 1.1 08/30/16 11:04 APTT 34 SECONDS (21-34) 08/30/16 11:04 - Constitutional Appears: Non-toxic, No Acute Distress - Head Exam Head Exam: NORMAL INSPECTION - Eye Exam Eye Exam: Normal appearance - ENT Exam ENT Exam: Mucous Membranes Moist, Normal Exam - Neck Exam Neck Exam: Normal Inspection - Respiratory Exam Respiratory Exam: Clear to Ausculation Bilateral, NORMAL BREATHING PATTERN - Cardiovascular Exam Cardiovascular Exam: REGULAR RHYTHM, RRR - GI/Abdominal Exam GI & Abdominal Exam: Distended, Soft - Extremities Exam Extremities Exam: Normal Inspection - Neurological Exam Neurological Exam: Alert, Awake - Skin Skin Exam: Normal Color Assessment and Plan (1) Dizziness Status: Acute (2) Encephalopathy, metabolic Status: Acute (3) HTN (hypertension) Status: Acute (4) UTI (urinary tract infection) Status: Acute (5) Hyponatremia Status: Chronic - Assessment and Plan (Free Text) Assessment: urine chem suggestive of siadh dc iv fluids antibiotics per primary may dc potassium supplement
[2016-09-03] MEDS: Albuterol-Ipratrop 3 mg / 0.5 (3 ml) UD INH SCH ×4 (01:54→19:53)
--- NOTE | 2016-09-03 06:26 | CARD ---
APPROVED REPORT EXAM: Two-dimensional and M-mode echocardiogram with Doppler and color Doppler. Other Information Quality : GoodRhythm : NSR INDICATION CVA/TIA Dizziness and Vertigo Chest Pain Syncope COPD hypontatremia, uti RISK FACTORS Hypertension 2D DIMENSIONS IVSd1.2 (0.7-1.1cm)LVDd3.9 (3.9-5.9cm) PWd0.7 (0.7-1.1cm)LVDs3.2 (2.5-4.0cm) FS (%) 17.3 %LVEF (%)36.7 (>50%) M-Mode DIMENSIONS Left Atrium (MM)4.07 (2.5-4.0cm)Aortic Root3.19 (2.2-3.7cm) Aortic Cusp Exc.2.11 (1.5-2.0cm) Mitral Valve MV E Gphyawcw537.2cm/sMV A Utwfzrzk254.6cm/sE/A ratio0.8 TDI E/Lateral E'0.0E/Medial E'0.0 Tricuspid Valve TR Peak Saelzpbz093nv/sTR Peak Gr.19sqCyLTED58hzEg LEFT VENTRICLE The left ventricle is normal size. There is normal left ventricular wall thickness. The left ventricular function is normal. The left ventricular ejection fraction is within the normal range. Left ventricle systolic function is normal. The Ejection Fraction is >55%. No regional wall motion abnormalities noted. The left ventricular diastolic function is normal. No left ventricle thrombus noted on this study. There is no ventricular septal defect visualized. There is no left ventricular aneurysm. There is no mass noted in the left ventricle. RIGHT VENTRICLE The right ventricle is normal size. There is normal right ventricular wall thickness. The right ventricular systolic function is normal. ATRIA The left atrium size is normal. The right atrium size is normal. The interatrial septum is intact with no evidence for an atrial septal defect. AORTIC VALVE The aortic valve is normal in structure and function. No aortic regurgitation is present. There is no aortic valvular stenosis. There is no aortic valvular vegetation. MITRAL VALVE The mitral valve is normal in structure and function. There is no evidence of mitral valve prolapse. There is no mitral valve stenosis. Mitral regurgitation is trace to mild. TRICUSPID VALVE The tricuspid valve is normal in structure and function. There is mild to moderate tricuspid regurgitation. Right ventricular systolic pressure is estimated at 30-40 mmHg. There is mild pulmonary hypertension. There is no tricuspid valve prolapse or vegetation. There is no tricuspid valve stenosis. PULMONIC VALVE The pulmonary valve is normal in structure and function. There is no pulmonic valvular regurgitation. There is no pulmonic valvular stenosis. GREAT VESSELS The aortic root is normal in size. The ascending aorta is normal in size. The pulmonary artery is normal. The IVC is normal in size and collapses >50% with inspiration. PERICARDIAL EFFUSION The pericardium appears normal. There is no pleural effusion. <Conclusion> The left ventricle is normal size. There is normal left ventricular wall thickness. The left ventricular ejection fraction is within the normal range. The Ejection Fraction is >55%. Mitral regurgitation is trace to mild. The tricuspid valve is normal in structure and function. There is mild to moderate tricuspid regurgitation. Right ventricular systolic pressure is estimated at 30-40 mmHg. There is mild pulmonary hypertension.
--- NOTE | 2016-09-03 08:23 | CP.PCM.PN ---
Subjective - Date & Time of Evaluation Date of Evaluation: 09/03/16 Time of Evaluation: 08:10 - Subjective Subjective: Patient no complain; States walk a little to bath room. No CP, no SOB, no edema; Want to go to [place] Objective - Vital Signs/Intake and Output Vital Signs (last 24 hours): Temp Pulse Resp BP Pulse Ox 98.2 F 89 20 114/60 100 09/03/16 04:00 09/03/16 04:00 09/03/16 04:00 09/03/16 04:00 09/03/16 04:00 Intake and Output: 09/03/16 09/03/16 06:59 18:59 Output Total 300 Balance -300 - Medications Medications: Current Medications Albuterol/Ipratropium (Duoneb 3 Mg/0.5 Mg (3 Ml) Ud) 3 ml INH RQ6 [facility] Last Admin: 09/03/16 07:55 Dose: 3 ml Amlodipine Besylate (Norvasc) 5 mg PO DAILY [facility] Last Admin: 09/02/16 10:13 Dose: 5 mg Ciprofloxacin (Cipro) 500 mg PO BID [facility] Last Admin: 09/02/16 18:31 Dose: 500 mg - Labs Labs: 09/02/16 08:09 09/02/16 08:09 PT 12.8 SECONDS (9.7-12.2) H 08/30/16 11:04 INR 1.1 08/30/16 11:04 APTT 34 SECONDS (21-34) 08/30/16 11:04 - Constitutional Appears: No Acute Distress - Eye Exam Eye Exam: Normal appearance - ENT Exam ENT Exam: Mucous Membranes Moist - Neck Exam Neck Exam: Full ROM. absent: Lymphadenopathy, Thyromegaly - Respiratory Exam Respiratory Exam: Clear to Ausculation Bilateral. absent: Rales, Rhonchi, Wheezes - Cardiovascular Exam Cardiovascular Exam: REGULAR RHYTHM, +S1, +S2. absent: Gallop, JVD - GI/Abdominal Exam GI & Abdominal Exam: Soft. absent: Tenderness, Mass - Extremities Exam Extremities Exam: Calf Tenderness, Full ROM, Normal Capillary Refill. 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
--- NOTE | 2016-09-03 14:16 | CP.PCM.PN ---
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 On oral fluid restriction Objective - Vital Signs/Intake and Output Vital Signs (last 24 hours): Temp Pulse Resp BP Pulse Ox 97.7 F 89 18 131/71 97 09/03/16 08:45 09/03/16 08:45 09/03/16 08:45 09/03/16 08:45 09/03/16 08:45 Intake and Output: 09/03/16 09/03/16 06:59 18:59 Output Total 300 Balance -300 - Medications Medications: Current Medications Albuterol/Ipratropium (Duoneb 3 Mg/0.5 Mg (3 Ml) Ud) 3 ml INH RQ6 [facility] Last Admin: 09/03/16 07:55 Dose: 3 ml Amlodipine Besylate (Norvasc) 5 mg PO DAILY [facility] Last Admin: 09/03/16 09:48 Dose: 5 mg Ciprofloxacin (Cipro) 500 mg PO BID [facility] Last Admin: 09/03/16 09:48 Dose: 500 mg - Labs Labs: 09/02/16 08:09 09/02/16 08:09 PT 12.8 SECONDS (9.7-12.2) H 08/30/16 11:04 INR 1.1 08/30/16 11:04 APTT 34 SECONDS (21-34) 08/30/16 11:04 - Constitutional Appears: No Acute Distress, Chronically Ill - Head Exam Head Exam: ATRAUMATIC, NORMAL INSPECTION - Eye Exam Eye Exam: EOMI, Normal appearance - Neck Exam Neck Exam: Normal Inspection. absent: Tenderness - Respiratory Exam Respiratory Exam: Clear to Ausculation Bilateral, NORMAL BREATHING PATTERN - Cardiovascular Exam Cardiovascular Exam: REGULAR RHYTHM, +S1 - GI/Abdominal Exam GI & Abdominal Exam: Soft. absent: Tenderness - Extremities Exam Extremities Exam: Normal Inspection. absent: Tenderness - Neurological Exam Neurological Exam: Alert, CN II-XII Intact - Skin Skin Exam: Dry, Warm Assessment and Plan (1) HTN (hypertension) Status: Acute (2) Dizziness Status: Acute (3) Encephalopathy, metabolic Status: Acute (4) Forehead laceration Status: Acute (5) Hyponatremia Status: Chronic - Assessment and Plan (Free Text) Plan: Repeat chemistries Oral fluid restriction Monitor Na levels as parameters C/W SIADH
--- NOTE | 2016-09-03 21:52 | CP.PCM.PN ---
Subjective - Date & Time of Evaluation Date of Evaluation: 09/03/16 Time of Evaluation: 07:00 - Subjective Subjective: CHANGE IN MENTAL STATUS Objective - Vital Signs/Intake and Output Vital Signs (last 24 hours): Temp Pulse Resp BP Pulse Ox 98.1 F 98 H 20 101/56 L 100 09/03/16 15:43 09/03/16 15:43 09/03/16 15:43 09/03/16 15:43 09/03/16 15:43 Intake and Output: 09/03/16 09/04/16 18:59 06:59 Output Total 200 Balance -200 - Medications Medications: Current Medications Albuterol/Ipratropium (Duoneb 3 Mg/0.5 Mg (3 Ml) Ud) 3 ml INH RQ6 [facility] Last Admin: 09/03/16 19:53 Dose: Not Given Amlodipine Besylate (Norvasc) 5 mg PO DAILY [facility] Last Admin: 09/03/16 09:48 Dose: 5 mg Ciprofloxacin (Cipro) 500 mg PO BID [facility] Last Admin: 09/03/16 18:13 Dose: 500 mg - Labs Labs: 09/02/16 08:09 09/02/16 08:09 PT 12.8 SECONDS (9.7-12.2) H 08/30/16 11:04 INR 1.1 08/30/16 11:04 APTT 34 SECONDS (21-34) 08/30/16 11:04 - Head Exam Additional comments: HEALING SCAR - Neck Exam Neck Exam: Full ROM - Neurological Exam Neurological Exam: Alert, CN II-XII Intact, Oriented x3 Neuro motor strength exam: Left Upper Extremity: 4, Right Upper Extremity: 4, Left Lower Extremity: 4, Right Lower Extremity: 4 Assessment and Plan (1) Encephalopathy, metabolic Status: Acute - Assessment and Plan (Free Text) Assessment: CLINICALLY IMPROVING WITH CURRENT MANAGEMENT I WILL REVIEW HIS EEG OOB AND PT
[2016-09-04] MEDS: Albuterol-Ipratrop 3 mg / 0.5 (3 ml) UD INH SCH ×4 (01:19→19:45)
[2016-09-04 07:19] LABS: ALBUMIN 2.8 g/dL (3.5-5.0)
[2016-09-04 07:22] LABS: AST/SGOT 22 U/L (17-59); GFR AFRICAN-AMERICAN > 60; GFR NON-AFRICAN AMERICAN > 60
[2016-09-04 07:23] LABS: ALT/SGPT 19 U/L (21-72); BLOOD UREA NITROGEN 7 mg/dL (9-20); CALCIUM 7.1 mg/dl (8.6-10.4)
--- NOTE | 2016-09-04 08:24 | CP.PCM.PN ---
Subjective - Date & Time of Evaluation Date of Evaluation: 09/04/16 Time of Evaluation: 08:21 - Subjective Subjective: Pt no complain ; Want to go [place] No CP, no SOB, no edema. minimal dry coug MRI - no mass; Carotid (+) stenosis > 50 % PSA inc 41; Na 128 Objective - Vital Signs/Intake and Output Vital Signs (last 24 hours): Temp Pulse Resp BP Pulse Ox 98.0 F 83 18 117/69 93 L 09/04/16 07:35 09/04/16 07:35 09/04/16 07:35 09/04/16 07:35 09/04/16 07:35 Intake and Output: 09/04/16 09/04/16 06:59 18:59 Intake Total 250 Output Total 700 Balance -450 - Medications Medications: Current Medications Albuterol/Ipratropium (Duoneb 3 Mg/0.5 Mg (3 Ml) Ud) 3 ml INH RQ6 [facility] Last Admin: 09/04/16 07:54 Dose: 3 ml Amlodipine Besylate (Norvasc) 5 mg PO DAILY [facility] Last Admin: 09/03/16 09:48 Dose: 5 mg Ciprofloxacin (Cipro) 500 mg PO BID [facility] Last Admin: 09/03/16 18:13 Dose: 500 mg - Labs Labs: 09/02/16 08:09 09/04/16 06:20 PT 12.8 SECONDS (9.7-12.2) H 08/30/16 11:04 INR 1.1 08/30/16 11:04 APTT 34 SECONDS (21-34) 08/30/16 11:04 - Constitutional Appears: No Acute Distress - Eye Exam Eye Exam: Normal appearance - ENT Exam ENT Exam: Mucous Membranes Moist - Neck Exam Neck Exam: absent: Full ROM, Lymphadenopathy, Thyromegaly - Respiratory Exam Respiratory Exam: Clear to Ausculation Bilateral. absent: Rales, Rhonchi, Wheezes - Cardiovascular Exam Cardiovascular Exam: +S1, +S2, Murmur. absent: Gallop, REGULAR RHYTHM, JVD - GI/Abdominal Exam GI & Abdominal Exam: Soft. absent: Mass - Extremities Exam Extremities Exam: Calf Tenderness. absent: Full ROM, Joint Swelling, Normal Capillary Refill, Pedal Edema Assessment and Plan - Assessment and Plan (Free Text) Assessment: Prob Prostate cancer w/ UTI; Hyponatremia Syncope w/ right forehead laceration COPD, HTN, carotid stenosis s/p CEA Cont meds/ recheck Na For Prostate Bx on 09/06
[2016-09-04] MEDS ORDERED: Potassium Chloride 20 mEq ER Tab PO ONE (08:59)
--- NOTE | 2016-09-04 10:42 | CP.PCM.PN ---
Subjective - Date & Time of Evaluation Date of Evaluation: 09/04/16 Time of Evaluation: 10:38 - Subjective Subjective: Alert; same lethargy in general Na-128; K down to 3.4 Has SIADH- Na acceptable today Objective - Vital Signs/Intake and Output Vital Signs (last 24 hours): Temp Pulse Resp BP Pulse Ox 98.0 F 83 18 117/69 93 L 09/04/16 07:35 09/04/16 07:35 09/04/16 07:35 09/04/16 07:35 09/04/16 07:35 Intake and Output: 09/04/16 09/04/16 06:59 18:59 Intake Total 250 Output Total 700 Balance -450 - Medications Medications: Current Medications Albuterol/Ipratropium (Duoneb 3 Mg/0.5 Mg (3 Ml) Ud) 3 ml INH RQ6 [facility] Last Admin: 09/04/16 07:54 Dose: 3 ml Amlodipine Besylate (Norvasc) 5 mg PO DAILY [facility] Last Admin: 09/04/16 10:10 Dose: 5 mg Ciprofloxacin (Cipro) 500 mg PO BID [facility] Last Admin: 09/04/16 10:10 Dose: 500 mg - Labs Labs: 09/02/16 08:09 09/04/16 06:20 PT 12.8 SECONDS (9.7-12.2) H 08/30/16 11:04 INR 1.1 08/30/16 11:04 APTT 34 SECONDS (21-34) 08/30/16 11:04 - Constitutional Appears: Non-toxic, No Acute Distress, Chronically Ill - Head Exam Head Exam: ATRAUMATIC, NORMAL INSPECTION - Eye Exam Eye Exam: EOMI, Normal appearance - Neck Exam Neck Exam: Normal Inspection. absent: Tenderness - Respiratory Exam Respiratory Exam: Clear to Ausculation Bilateral, NORMAL BREATHING PATTERN - Cardiovascular Exam Cardiovascular Exam: REGULAR RHYTHM, +S1 - GI/Abdominal Exam GI & Abdominal Exam: Soft. absent: Tenderness - Extremities Exam Extremities Exam: Normal Inspection. absent: Tenderness - Neurological Exam Neurological Exam: Awake, CN II-XII Intact - Skin Skin Exam: Dry, Warm Assessment and Plan (1) HTN (hypertension) Status: Acute (2) Dizziness Status: Acute (3) Encephalopathy, metabolic Status: Acute (4) Forehead laceration Status: Acute (5) Hyponatremia Status: Chronic - Assessment and Plan (Free Text) Plan: replete K Monitor Na- if mental status worse or Na drops to <126 would give tovalptan
--- NOTE | 2016-09-04 21:47 | CP.PCM.PN ---
Subjective - Date & Time of Evaluation Date of Evaluation: 09/04/16 Time of Evaluation: 15:30 - Subjective Subjective: HE IS MORE ALERT IMPROVED MENTATION FOLLOWS COMMANDS MOVES ALL EXTREMITIES Objective - Vital Signs/Intake and Output Vital Signs (last 24 hours): Temp Pulse Resp BP Pulse Ox 98.0 F 83 18 117/69 93 L 09/04/16 07:35 09/04/16 07:35 09/04/16 07:35 09/04/16 07:35 09/04/16 07:35 - Medications Medications: Current Medications Albuterol/Ipratropium (Duoneb 3 Mg/0.5 Mg (3 Ml) Ud) 3 ml INH RQ6 [facility] Last Admin: 09/04/16 19:45 Dose: Not Given Amlodipine Besylate (Norvasc) 5 mg PO DAILY [facility] Last Admin: 09/04/16 10:10 Dose: 5 mg Ciprofloxacin (Cipro) 500 mg PO BID [facility] Last Admin: 09/04/16 10:10 Dose: 500 mg - Labs Labs: 09/02/16 08:09 09/04/16 06:20 PT 12.8 SECONDS (9.7-12.2) H 08/30/16 11:04 INR 1.1 08/30/16 11:04 APTT 34 SECONDS (21-34) 08/30/16 11:04 Assessment and Plan (1) Encephalopathy, metabolic Assessment & Plan: PROBLEMS WERE SEEMS TO BE RESOLVED NEEDS OOB PT WHEN MEDICALLY STABLE CAN BE TRANSFERED TO [place] EEG: SHOWED BILATERAL SLOW ACTIVITIES WITH NO ELECTROGRAPHIC PAROXYSMAL ACTIVITIES Status: Acute
[2016-09-05] MEDS: Albuterol-Ipratrop 3 mg / 0.5 (3 ml) UD INH SCH ×3 (01:13→13:58)
[2016-09-05 10:10] LABS: GFR AFRICAN-AMERICAN > 60; GFR NON-AFRICAN AMERICAN > 60
[2016-09-05 10:11] LABS: ALB/GLOB RATIO 0.9 (1.0-2.1); ALT/SGPT 23 U/L (21-72); AST/SGOT 26 U/L (17-59); BLOOD UREA NITROGEN 11 mg/dL (9-20)
--- NOTE | 2016-09-05 12:39 | CP.PCM.PN ---
Subjective - Date & Time of Evaluation Date of Evaluation: 09/05/16 Time of Evaluation: 12:37 - Subjective Subjective: S: feels lyn. No fever. Objective - Vital Signs/Intake and Output Vital Signs (last 24 hours): Temp Pulse Resp BP Pulse Ox 98.2 F 88 20 109/65 97 09/05/16 07:20 09/05/16 07:20 09/05/16 07:20 09/05/16 07:20 09/05/16 07:20 Intake and Output: 09/05/16 09/05/16 06:59 18:59 Intake Total 450 Output Total 450 Balance 0 - Medications Medications: Current Medications Albuterol/Ipratropium (Duoneb 3 Mg/0.5 Mg (3 Ml) Ud) 3 ml INH RQ6 [facility] Last Admin: 09/05/16 08:26 Dose: Not Given Amlodipine Besylate (Norvasc) 5 mg PO DAILY [facility] Last Admin: 09/05/16 09:06 Dose: 5 mg Ciprofloxacin (Cipro) 500 mg PO BID [facility] Last Admin: 09/05/16 09:06 Dose: 500 mg - Labs Labs: 09/02/16 08:09 09/05/16 09:48 PT 12.8 SECONDS (9.7-12.2) H 08/30/16 11:04 INR 1.1 08/30/16 11:04 APTT 34 SECONDS (21-34) 08/30/16 11:04 - Constitutional Appears: Chronically Ill - Head Exam Head Exam: NORMAL INSPECTION - Eye Exam Eye Exam: EOMI - ENT Exam ENT Exam: Normal Exam - Neck Exam Neck Exam: Normal Inspection - Respiratory Exam Respiratory Exam: NORMAL BREATHING PATTERN - Cardiovascular Exam Cardiovascular Exam: REGULAR RHYTHM - GI/Abdominal Exam GI & Abdominal Exam: Soft - Rectal Exam Rectal Exam: Deferred - Extremities Exam Extremities Exam: Normal Inspection - Neurological Exam Neurological Exam: Awake Assessment and Plan (1) Encephalopathy, metabolic Status: Acute (2) Hyponatremia Status: Chronic (3) HTN (hypertension) Status: Acute - Assessment and Plan (Free Text) Plan: Plans; Continue medications
[2016-09-06 07:41] LABS: AST/SGOT 32 U/L (17-59); GFR AFRICAN-AMERICAN > 60; GFR NON-AFRICAN AMERICAN > 60
[2016-09-06 07:42] LABS: ALB/GLOB RATIO 0.9 (1.0-2.1); ALT/SGPT 19 U/L (21-72); BLOOD UREA NITROGEN 13 mg/dL (9-20); CALCIUM 8.3 mg/dl (8.6-10.4)
--- NOTE | 2016-09-06 07:51 | CP.PCM.PN ---
Subjective - Date & Time of Evaluation Date of Evaluation: 09/03/16 Time of Evaluation: 08:15 - Subjective Subjective: neuro work-up in progress no further syncope still low Na+ Objective - Vital Signs/Intake and Output Vital Signs (last 24 hours): Temp Pulse Resp BP Pulse Ox 98.0 F 99 H 20 124/74 98 09/06/16 00:00 09/06/16 01:00 09/06/16 00:00 09/06/16 00:00 09/06/16 00:00 Intake and Output: 09/06/16 09/06/16 06:59 18:59 Intake Total 350 Output Total 350 Balance 0 - Medications Medications: Current Medications Amlodipine Besylate (Norvasc) 5 mg PO DAILY [facility] Last Admin: 09/05/16 09:06 Dose: 5 mg Ciprofloxacin (Cipro) 500 mg PO BID [facility] Last Admin: 09/05/16 17:57 Dose: 500 mg - Labs Labs: 09/02/16 08:09 09/06/16 07:09 PT 12.8 SECONDS (9.7-12.2) H 08/30/16 11:04 INR 1.1 08/30/16 11:04 APTT 34 SECONDS (21-34) 08/30/16 11:04 - Constitutional Appears: Non-toxic - Head Exam Additional comments: laceration in right forehead - Eye Exam Eye Exam: absent: Scleral icterus - ENT Exam ENT Exam: Mucous Membranes Moist - Neck Exam Neck Exam: Full ROM. absent: Lymphadenopathy - Cardiovascular Exam Cardiovascular Exam: REGULAR RHYTHM - GI/Abdominal Exam GI & Abdominal Exam: Soft. absent: Tenderness - Extremities Exam Extremities Exam: absent: Pedal Edema, Tenderness Assessment and Plan - Assessment and Plan (Free Text) Assessment: Syncope Carotid artery disease by Hx Hyponatremia - r/o SIADH Plan: Renal on board will do Tilt table test and Lexiscan when Na+ is corrected
--- NOTE | 2016-09-06 08:00 | CP.PCM.PN ---
Subjective - Date & Time of Evaluation Date of Evaluation: 09/05/16 Time of Evaluation: 08:15 - Subjective Subjective: no further syncope more alert' Na+ improving Objective - Vital Signs/Intake and Output Vital Signs (last 24 hours): Temp Pulse Resp BP Pulse Ox 98.0 F 99 H 20 124/74 98 09/06/16 00:00 09/06/16 01:00 09/06/16 00:00 09/06/16 00:00 09/06/16 00:00 Intake and Output: 09/06/16 09/06/16 06:59 18:59 Intake Total 350 Output Total 350 Balance 0 - Medications Medications: Current Medications Amlodipine Besylate (Norvasc) 5 mg PO DAILY [facility] Last Admin: 09/05/16 09:06 Dose: 5 mg Ciprofloxacin (Cipro) 500 mg PO BID [facility] Last Admin: 09/05/16 17:57 Dose: 500 mg - Labs Labs: 09/02/16 08:09 09/06/16 07:09 PT 12.8 SECONDS (9.7-12.2) H 08/30/16 11:04 INR 1.1 08/30/16 11:04 APTT 34 SECONDS (21-34) 08/30/16 11:04 - Constitutional Appears: Non-toxic - Head Exam Additional comments: forehead laceration improving - Eye Exam Eye Exam: absent: Scleral icterus - Neck Exam Neck Exam: Full ROM - Respiratory Exam Respiratory Exam: Clear to Ausculation Bilateral - Cardiovascular Exam Cardiovascular Exam: REGULAR RHYTHM - GI/Abdominal Exam GI & Abdominal Exam: Soft. absent: Tenderness - Extremities Exam Extremities Exam: Calf Tenderness, Tenderness. absent: Pedal Edema - Neurological Exam Neurological Exam: Alert Assessment and Plan - Assessment and Plan (Free Text) Assessment: Syncope Hyponatremia Plan: Cont Na+ correction WIll schedule for tilt table test and Lexiscan stress test
--- NOTE | 2016-09-06 08:32 | CP.PCM.PN ---
Subjective - Date & Time of Evaluation Date of Evaluation: 09/06/16 Time of Evaluation: 08:20 - Subjective Subjective: Pt no complain; for Bx today No cP, no SOb, no edema; no cough Objective - Vital Signs/Intake and Output Vital Signs (last 24 hours): Temp Pulse Resp BP Pulse Ox 98.0 F 87 20 124/74 98 09/06/16 00:00 09/06/16 07:00 09/06/16 00:00 09/06/16 00:00 09/06/16 00:00 Intake and Output: 09/06/16 09/06/16 06:59 18:59 Intake Total 350 Output Total 350 Balance 0 - Medications Medications: Current Medications Amlodipine Besylate (Norvasc) 5 mg PO DAILY [facility] Last Admin: 09/05/16 09:06 Dose: 5 mg Ciprofloxacin (Cipro) 500 mg PO BID [facility] Last Admin: 09/05/16 17:57 Dose: 500 mg - Labs Labs: 09/02/16 08:09 09/06/16 07:09 PT 12.8 SECONDS (9.7-12.2) H 08/30/16 11:04 INR 1.1 08/30/16 11:04 APTT 34 SECONDS (21-34) 08/30/16 11:04 - Constitutional Appears: No Acute Distress - Eye Exam Eye Exam: Normal appearance - ENT Exam ENT Exam: Mucous Membranes Moist - Neck Exam Neck Exam: Full ROM. absent: Lymphadenopathy, Normal Inspection - Respiratory Exam Respiratory Exam: Clear to Ausculation Bilateral. absent: Rales, Rhonchi, Wheezes - Cardiovascular Exam Cardiovascular Exam: REGULAR RHYTHM, +S1, +S2, Murmur. absent: Gallop, JVD - GI/Abdominal Exam GI & Abdominal Exam: Soft. absent: Tenderness, Mass - Extremities Exam Extremities Exam: Full ROM, Normal Capillary Refill. absent: Calf Tenderness, Joint Swelling, Pedal Edema Assessment and Plan - Assessment and Plan (Free Text) Assessment: Inc PSA; UTI COPD, HTN, Carotid Stenosis Cont meds/ for Bx
[2016-09-06] MEDS ORDERED: cefTRIAXone IV 1 gm in Dextros 50 ML IVPB ONE (09:13)
[2016-09-06] MEDS ORDERED: Lidocaine 2% Jelly (Uro-Jet) ONE (09:13)
[2016-09-06] MEDS ORDERED: Propofol 10 mg/ml Inj (20 ML) ONE (10:18)
[2016-09-06] MEDS ORDERED: Phenylephrine 10 mg/ml Inj ONE (10:30)
[2016-09-06] MEDS ORDERED: ePHEDrine 50 mg/ml Inj ONE (10:35)
[2016-09-06] MEDS ORDERED: Gentamicin 80 mg in 0.9% NS 160 MG/200 ML BAG IVPB ONE (10:44)
[2016-09-06] MEDS ORDERED: Lactated Ringer's 500 ML IV ONE (10:45)
--- NOTE | 2016-09-06 11:33 | PCM.SURG1 ---
Surgeon's Initial Post Op Note - Surgeon's Notes Surgeon: Maricel AVITIA Quartz Mounter: NONE Type of Anesthesia: IV Sedation Pre-Operative Diagnosis: ELEVATED PSA Operative Findings: SAME, PROSTATE ENLARGEMENT AND INDURATION Post-Operative Diagnosis: SAME Operation Performed: PROSTATE ULTRASOUND, PROSTATE BX Specimen/Specimens Removed: PROSTATE BX Estimated Blood Loss: EBL {In ML}: 0 Blood Products Given: N/A Drains Used: No Drains Post-Op Condition: Good Date of Surgery/Procedure: 09/06/16 Time of Surgery/Procedure: 11:25
[2016-09-06 16:19] VITALS: RESP 20
[2016-09-06] MEDS: Fluticasone-Salmeterol 250-50mcg Diskus INH SCH (19:10)
--- NOTE | 2016-09-06 20:01 | CP.PCM.PN ---
Subjective - Date & Time of Evaluation Date of Evaluation: 09/06/16 Time of Evaluation: 08:10 - Subjective Subjective: Awkae, alert NAD no sob, no chest pain Objective - Vital Signs/Intake and Output Vital Signs (last 24 hours): Temp Pulse Resp BP Pulse Ox 97.7 F 82 20 98/63 L 97 09/06/16 15:22 09/06/16 15:22 09/06/16 15:22 09/06/16 15:22 09/06/16 15:22 - Medications Medications: Current Medications Amlodipine Besylate (Norvasc) 5 mg PO DAILY [facility] Last Admin: 09/06/16 13:19 Dose: 5 mg Ciprofloxacin (Cipro) 500 mg PO BID [facility] Last Admin: 09/06/16 18:13 Dose: 500 mg Fluticasone/Salmeterol (Advair Diskus 250/50) 1 puff INH RQ12 [facility] Last Admin: 09/06/16 19:10 Dose: 1 puff - Labs Labs: 09/02/16 08:09 09/06/16 07:09 PT 12.8 SECONDS (9.7-12.2) H 08/30/16 11:04 INR 1.1 08/30/16 11:04 APTT 34 SECONDS (21-34) 08/30/16 11:04 - Constitutional Appears: Non-toxic - Head Exam Head Exam: NORMAL INSPECTION - Eye Exam Eye Exam: absent: Scleral icterus - Neck Exam Neck Exam: Full ROM - Respiratory Exam Respiratory Exam: Decreased Breath Sounds, Clear to Ausculation Bilateral - Cardiovascular Exam Cardiovascular Exam: REGULAR RHYTHM - GI/Abdominal Exam GI & Abdominal Exam: Soft. absent: Tenderness - Extremities Exam Extremities Exam: Calf Tenderness. absent: Pedal Edema Assessment and Plan - Assessment and Plan (Free Text) Assessment: Syncope Elevated PSA Low NA+, improving Plan: Ok for prostate biopsy from medical and cardiac standpoint
[2016-09-07 07:43] LABS: ALBUMIN 2.7 g/dL (3.5-5.0)
[2016-09-07 07:46] LABS: ALB/GLOB RATIO 0.8 (1.0-2.1); AST/SGOT 24 U/L (17-59); GFR AFRICAN-AMERICAN > 60; GFR NON-AFRICAN AMERICAN > 60
[2016-09-07 07:47] LABS: ALT/SGPT 19 U/L (21-72); BLOOD UREA NITROGEN 13 mg/dL (9-20); CALCIUM 8.1 mg/dl (8.6-10.4)
--- NOTE | 2016-09-07 08:20 | CP.PCM.PN ---
Subjective - Date & Time of Evaluation Date of Evaluation: 09/07/16 Time of Evaluation: 08:19 - Subjective Subjective: post prostate biopsy denies any complaints na 131 noted Objective - Vital Signs/Intake and Output Vital Signs (last 24 hours): Temp Pulse Resp BP Pulse Ox 98.5 F 83 20 131/66 95 09/06/16 23:20 09/07/16 03:50 09/06/16 23:20 09/07/16 04:00 09/06/16 23:20 Intake and Output: 09/07/16 09/07/16 06:59 18:59 Intake Total 300 Output Total 200 Balance 100 - Medications Medications: Current Medications Amlodipine Besylate (Norvasc) 5 mg PO DAILY [facility] Last Admin: 09/06/16 13:19 Dose: 5 mg Ciprofloxacin (Cipro) 500 mg PO BID [facility] Last Admin: 09/06/16 18:13 Dose: 500 mg Fluticasone/Salmeterol (Advair Diskus 250/50) 1 puff INH RQ12 [facility] Last Admin: 09/06/16 19:10 Dose: 1 puff - Labs Labs: 09/02/16 08:09 09/07/16 06:29 PT 12.8 SECONDS (9.7-12.2) H 08/30/16 11:04 INR 1.1 08/30/16 11:04 APTT 34 SECONDS (21-34) 08/30/16 11:04 - Constitutional Appears: Non-toxic, No Acute Distress, Chronically Ill - Head Exam Head Exam: NORMAL INSPECTION - Eye Exam Eye Exam: Normal appearance - ENT Exam ENT Exam: Mucous Membranes Moist, Normal Exam - Neck Exam Neck Exam: Normal Inspection - Respiratory Exam Respiratory Exam: Clear to Ausculation Bilateral, NORMAL BREATHING PATTERN - Cardiovascular Exam Cardiovascular Exam: REGULAR RHYTHM, RRR - GI/Abdominal Exam GI & Abdominal Exam: Distended, Soft - Extremities Exam Extremities Exam: Normal Inspection - Back Exam Back Exam: NORMAL INSPECTION - Skin Skin Exam: Warm Assessment and Plan (1) Dizziness Status: Acute (2) Encephalopathy, metabolic Status: Acute (3) HTN (hypertension) Status: Acute (4) UTI (urinary tract infection) Status: Acute (5) Hyponatremia Status: Chronic - Assessment and Plan (Free Text) Assessment: na improving fluid restriction for siadh
[2016-09-07] MEDS: Fluticasone-Salmeterol 250-50mcg Diskus INH SCH ×2 (10:25→19:43)
--- NOTE | 2016-09-07 11:58 | CP.PCM.PN ---
Subjective - Date & Time of Evaluation Date of Evaluation: 09/07/16 Time of Evaluation: 11:55 - Subjective Subjective: S: No fever. Lying in bed. Objective - Vital Signs/Intake and Output Vital Signs (last 24 hours): Temp Pulse Resp BP Pulse Ox 98.5 F 83 20 131/66 95 09/06/16 23:20 09/07/16 03:50 09/06/16 23:20 09/07/16 04:00 09/06/16 23:20 Intake and Output: 09/07/16 09/07/16 06:59 18:59 Intake Total 300 Output Total 200 Balance 100 - Medications Medications: Current Medications Amlodipine Besylate (Norvasc) 5 mg PO DAILY [facility] Last Admin: 09/07/16 09:39 Dose: 5 mg Ciprofloxacin (Cipro) 500 mg PO BID [facility] Last Admin: 09/07/16 09:39 Dose: 500 mg Fluticasone/Salmeterol (Advair Diskus 250/50) 1 puff INH RQ12 [facility] Last Admin: 09/07/16 10:25 Dose: 1 puff - Labs Labs: 09/02/16 08:09 09/07/16 06:29 PT 12.8 SECONDS (9.7-12.2) H 08/30/16 11:04 INR 1.1 08/30/16 11:04 APTT 34 SECONDS (21-34) 08/30/16 11:04 - Constitutional Appears: Chronically Ill - Head Exam Head Exam: NORMAL INSPECTION - Eye Exam Eye Exam: Normal appearance - ENT Exam ENT Exam: Mucous Membranes Dry - Neck Exam Neck Exam: Normal Inspection - Respiratory Exam Respiratory Exam: NORMAL BREATHING PATTERN - Cardiovascular Exam Cardiovascular Exam: REGULAR RHYTHM - GI/Abdominal Exam GI & Abdominal Exam: Soft - Rectal Exam Rectal Exam: Deferred - Extremities Exam Extremities Exam: absent: Pedal Edema Assessment and Plan (1) Encephalopathy, metabolic Status: Acute (2) Hyponatremia Status: Chronic (3) HTN (hypertension) Status: Acute (4) Elevated PSA Status: Acute - Assessment and Plan (Free Text) Plan: Plans: Continue medications
[2016-09-07] MEDS ORDERED: Potassium Chloride 20 mEq ER Tab PO ONE (14:30)
--- NOTE | 2016-09-07 18:21 | CP.PCM.PN ---
Subjective - Date & Time of Evaluation Date of Evaluation: 09/07/16 Time of Evaluation: 18:19 - Subjective Subjective: no further syncope lying comfortably in bed Objective - Vital Signs/Intake and Output Vital Signs (last 24 hours): Temp Pulse Resp BP Pulse Ox 98.5 F 84 20 131/66 95 09/06/16 23:20 09/07/16 12:00 09/06/16 23:20 09/07/16 04:00 09/06/16 23:20 Intake and Output: 09/07/16 09/07/16 06:59 18:59 Intake Total 300 260 Output Total 200 300 Balance 100 -40 - Medications Medications: Current Medications Amlodipine Besylate (Norvasc) 5 mg PO DAILY [facility] Last Admin: 09/07/16 09:39 Dose: 5 mg Ciprofloxacin (Cipro) 500 mg PO BID [facility] Last Admin: 09/07/16 17:22 Dose: 500 mg Fluticasone/Salmeterol (Advair Diskus 250/50) 1 puff INH RQ12 [facility] Last Admin: 09/07/16 10:25 Dose: 1 puff - Labs Labs: 09/02/16 08:09 09/07/16 06:29 PT 12.8 SECONDS (9.7-12.2) H 08/30/16 11:04 INR 1.1 08/30/16 11:04 APTT 34 SECONDS (21-34) 08/30/16 11:04 - Constitutional Appears: Non-toxic - Head Exam Additional comments: sutured incision in left forehead noted - Eye Exam Eye Exam: absent: Scleral icterus - Neck Exam Neck Exam: Full ROM - Respiratory Exam Respiratory Exam: Decreased Breath Sounds - Cardiovascular Exam Cardiovascular Exam: REGULAR RHYTHM - GI/Abdominal Exam GI & Abdominal Exam: Soft. absent: Tenderness - Exam External exam: absent: Erythema - Extremities Exam Extremities Exam: Pedal Edema. absent: Calf Tenderness - Neurological Exam Neurological Exam: Alert, Oriented x3 Assessment and Plan - Assessment and Plan (Free Text) Assessment: Syncope Hyponatremia - improving Elevated PSA - s/p Prostate bx, path pending Plan: Tilt Table test in AM Lexiscan stress test in AM
[2016-09-08] MEDS ORDERED: Aminophylline 25 mg/ml Inj ONE (08:13)
[2016-09-08 08:37] LABS: ALBUMIN 2.7 g/dL (3.5-5.0)
[2016-09-08 08:38] LABS: ALB/GLOB RATIO 0.9 (1.0-2.1); AST/SGOT 22 U/L (17-59); GFR AFRICAN-AMERICAN > 60; GFR NON-AFRICAN AMERICAN > 60
[2016-09-08 08:39] LABS: ALT/SGPT 15 U/L (21-72); BLOOD UREA NITROGEN 12 mg/dL (9-20); CALCIUM 8.1 mg/dl (8.6-10.4)
[2016-09-08] MEDS: Fluticasone-Salmeterol 250-50mcg Diskus INH SCH ×3 (08:47→19:12)
--- NOTE | 2016-09-08 09:01 | CP.PCM.PN ---
Subjective - Date & Time of Evaluation Date of Evaluation: 09/08/16 Time of Evaluation: 08:35 - Subjective Subjective: Patient no complain; very forgetful No CP, no SOB, no diarrhea, (+) dry cough Objective - Vital Signs/Intake and Output Vital Signs (last 24 hours): Temp Pulse Resp BP Pulse Ox 97.9 F 83 20 108/59 L 96 09/07/16 23:30 09/08/16 07:00 09/07/16 23:30 09/07/16 23:30 09/07/16 23:30 - Medications Medications: Current Medications Amlodipine Besylate (Norvasc) 5 mg PO DAILY [facility] Last Admin: 09/07/16 09:39 Dose: 5 mg Ciprofloxacin (Cipro) 500 mg PO BID [facility] Last Admin: 09/07/16 17:22 Dose: 500 mg Fluticasone/Salmeterol (Advair Diskus 250/50) 1 puff INH RQ12 [facility] Last Admin: 09/08/16 08:47 Dose: Not Given - Labs Labs: 09/02/16 08:09 09/08/16 07:14 PT 12.8 SECONDS (9.7-12.2) H 08/30/16 11:04 INR 1.1 08/30/16 11:04 APTT 34 SECONDS (21-34) 08/30/16 11:04 - Constitutional Appears: No Acute Distress - Eye Exam Eye Exam: Normal appearance - ENT Exam ENT Exam: Mucous Membranes Moist - Neck Exam Neck Exam: Full ROM. absent: Lymphadenopathy, Normal Inspection, Thyromegaly - Respiratory Exam Respiratory Exam: Decreased Breath Sounds. absent: Rales, Rhonchi, Wheezes - Cardiovascular Exam Cardiovascular Exam: REGULAR RHYTHM, +S1, +S2, Murmur. absent: Gallop, JVD - GI/Abdominal Exam GI & Abdominal Exam: Soft. absent: Tenderness, Mass - Extremities Exam Extremities Exam: Full ROM, Normal Capillary Refill. absent: Calf Tenderness, Joint Swelling, Pedal Edema Assessment and Plan - Assessment and Plan (Free Text) Assessment: Inc PSA s/p Bx; Syncope Carotid Stenosis; COPD Cont meds For Tilt test/ Stress test
--- NOTE | 2016-09-08 13:07 | PCM.URO ---
Urology Progress Note - General General: No Complaints, Tolerating Diet - Subjective Abdominal Pain: No Flank Pain: No Nausea: No Vomiting: No Voiding Well: Yes Dysuria: No Hematuria: No Frequency: No Good Stream: Yes Dsypnea: No Chest Pain: No Fever & Chills: No Other: in bed - Objective Lab Studies: Reviewed Lab Results Last 24 Hours: Laboratory Results - last 24 hr 09/07/16 09/08/16 16:20 07:14 Sodium 133 Potassium 3.7 Chloride 102 Carbon Dioxide 24 Anion Gap 11 BUN 12 Creatinine 0.5 L Est GFR ( Amer) > 60 Est GFR (Non-Af Amer) > 60 POC Glucose (mg/dL) 110 Random Glucose 83 Calcium 8.1 L Total Bilirubin 0.8 AST 22 ALT 15 L D Alkaline Phosphatase 59 Total Protein 5.8 L Albumin 2.7 L Globulin 3.1 Albumin/Globulin Ratio 0.9 L Intake & Output: Intake & Output 09/07/16 09/08/16 09/08/16 18:59 06:59 18:59 Intake Total 260 Output Total 300 Balance -40 Intake: Oral 260 Output: Urine 300 Urine, Voided 300 Vital Signs: Vital Signs - 24 hr 09/07/16 09/08/16 09/08/16 23:30 02:53 07:00 Temperature 97.9 F Pulse Rate 85 96 H 83 Respiratory 20 Rate Blood Pressure 108/59 L O2 Sat by Pulse 96 Oximetry - Physical Exam Abdominal Exam: Soft, Non-Tender, Non-Distended Back: No CVA Tenderness Genitalia: Without Inflammation - Plan Additional Information: Imp: Stable post prostate bx. elevated psa. prob prostate cancer. rec/p: bx results pending. further w/u and rx t/f. YS - Date & Time of Note Date: 09/08/16 Time: 13:07
--- NOTE | 2016-09-08 14:52 | CP.PCM.PN ---
Subjective - Date & Time of Evaluation Date of Evaluation: 09/08/16 Time of Evaluation: 13:25 - Subjective Subjective: no complaints labs reviewed Na improved watching fluid restriction for probable transfer to rehab Objective - Vital Signs/Intake and Output Vital Signs (last 24 hours): Temp Pulse Resp BP Pulse Ox 97.9 F 83 20 108/59 L 96 09/07/16 23:30 09/08/16 07:00 09/07/16 23:30 09/07/16 23:30 09/07/16 23:30 - Medications Medications: Current Medications Amlodipine Besylate (Norvasc) 5 mg PO DAILY [facility] Last Admin: 09/08/16 13:01 Dose: 5 mg Ciprofloxacin (Cipro) 500 mg PO BID [facility] Last Admin: 09/08/16 13:04 Dose: 500 mg Fluticasone/Salmeterol (Advair Diskus 250/50) 1 puff INH RQ12 [facility] Last Admin: 09/08/16 13:41 Dose: 1 puff - Labs Labs: 09/02/16 08:09 09/08/16 07:14 PT 12.8 SECONDS (9.7-12.2) H 08/30/16 11:04 INR 1.1 08/30/16 11:04 APTT 34 SECONDS (21-34) 08/30/16 11:04 - Constitutional Appears: No Acute Distress, Chronically Ill - Head Exam Head Exam: ATRAUMATIC, NORMAL INSPECTION - Eye Exam Eye Exam: EOMI, Normal appearance - ENT Exam ENT Exam: Mucous Membranes Moist - Neck Exam Neck Exam: Full ROM. absent: Lymphadenopathy - Respiratory Exam Respiratory Exam: Clear to Ausculation Bilateral. absent: Accessory Muscle Use - Cardiovascular Exam Cardiovascular Exam: REGULAR RHYTHM. absent: Rubs - GI/Abdominal Exam GI & Abdominal Exam: Normal Bowel Sounds. absent: Tenderness - Extremities Exam Extremities Exam: Full ROM. absent: Pedal Edema - Neurological Exam Neurological Exam: Alert, Oriented x3 Assessment and Plan - Assessment and Plan (Free Text) Assessment: hyponatremia, SIADH picture awaiting result of prostate biopsy doing well with fluid restriction continue to trend chemistries will f/u
--- NOTE | 2016-09-09 07:28 | PCM.URO ---
Urology Progress Note - General General: No Complaints, Tolerating Diet - Subjective Abdominal Pain: No Flank Pain: No Nausea: No Vomiting: No Voiding Well: Yes Dysuria: No Hematuria: No Fever & Chills: No - Objective Lab Results Last 24 Hours: Laboratory Results - last 24 hr 09/08/16 07:14 Sodium 133 Potassium 3.7 Chloride 102 Carbon Dioxide 24 Anion Gap 11 BUN 12 Creatinine 0.5 L Est GFR ( Amer) > 60 Est GFR (Non-Af Amer) > 60 Random Glucose 83 Calcium 8.1 L Total Bilirubin 0.8 AST 22 ALT 15 L D Alkaline Phosphatase 59 Total Protein 5.8 L Albumin 2.7 L Globulin 3.1 Albumin/Globulin Ratio 0.9 L Intake & Output: Intake & Output 09/08/16 09/09/16 09/09/16 18:59 06:59 18:59 Intake Total 500 Output Total 100 Balance 400 Weight 131 lb Intake: Oral 500 Output: Urine 100 Urine, Voided 100 Other: # Voids Urine, Voided 1 # Bowel Movements 0 Vital Signs: Vital Signs - 24 hr 09/08/16 09/08/16 09/09/16 15:34 23:30 00:00 Temperature 97.7 F 97.8 F Pulse Rate 94 H 102 H 111 H Respiratory 20 20 Rate Blood Pressure 104/57 L 109/67 O2 Sat by Pulse 99 97 Oximetry 09/09/16 04:00 Temperature Pulse Rate 91 H Respiratory Rate Blood Pressure O2 Sat by Pulse Oximetry - Physical Exam Abdominal Exam: Soft, Non-Tender, Non-Distended Back: No CVA Tenderness - Plan Additional Information: IMP: STABLE POST PROSTATE BX. ELEVATED PSA. P/REC: PATHOLOGY PENDING. DISCUSSED W PT - Date & Time of Note Date: 09/09/16 Time: 07:27
[2016-09-09] MEDS: Fluticasone-Salmeterol 250-50mcg Diskus INH SCH ×2 (07:42→19:05)
--- NOTE | 2016-09-09 08:41 | CP.PCM.PN ---
Subjective - Date & Time of Evaluation Date of Evaluation: 09/09/16 Time of Evaluation: 08:39 - Subjective Subjective: Pt no complain; Had stress test and pending [id number] No CP, no SOB, no edema, (+)min dry cough Objective - Vital Signs/Intake and Output Vital Signs (last 24 hours): Temp Pulse Resp BP Pulse Ox 97.8 F 91 H 20 109/67 97 09/08/16 23:30 09/09/16 04:00 09/08/16 23:30 09/08/16 23:30 09/08/16 23:30 Intake and Output: 09/09/16 09/09/16 06:59 18:59 Intake Total 500 Output Total 100 Balance 400 - Medications Medications: Current Medications Amlodipine Besylate (Norvasc) 5 mg PO DAILY [facility] Last Admin: 09/08/16 13:01 Dose: 5 mg Ciprofloxacin (Cipro) 500 mg PO BID [facility] Last Admin: 09/08/16 19:28 Dose: 500 mg Fluticasone/Salmeterol (Advair Diskus 250/50) 1 puff INH RQ12 [facility] Last Admin: 09/09/16 07:42 Dose: 1 puff - Labs Labs: 09/02/16 08:09 09/08/16 07:14 PT 12.8 SECONDS (9.7-12.2) H 08/30/16 11:04 INR 1.1 08/30/16 11:04 APTT 34 SECONDS (21-34) 08/30/16 11:04 - Constitutional Appears: No Acute Distress - Eye Exam Eye Exam: Normal appearance - ENT Exam ENT Exam: Mucous Membranes Moist - Neck Exam Neck Exam: Full ROM. absent: Lymphadenopathy, Thyromegaly - Respiratory Exam Respiratory Exam: Decreased Breath Sounds. absent: Rales, Rhonchi, Wheezes - Cardiovascular Exam Cardiovascular Exam: REGULAR RHYTHM, +S1, +S2, Murmur. absent: Gallop, JVD - GI/Abdominal Exam GI & Abdominal Exam: Soft. absent: Tenderness, Mass - Extremities Exam Extremities Exam: Full ROM, Normal Capillary Refill. absent: Calf Tenderness, Joint Swelling Assessment and Plan - Assessment and Plan (Free Text) Assessment: COPD; Hyponatremia w/ Syncope Inc PSA; carotid stenosis Unsteady gait Cont meds/ for subacute
--- NOTE | 2016-09-09 09:50 | CP.PCM.PN ---
Subjective - Date & Time of Evaluation Date of Evaluation: 09/08/16 Time of Evaluation: 09:44 - Subjective Subjective: PROCEDURE: Tilt Table test IMPRESSION: Appropriate response of BP and HR to Tilt Table Test. Patient became hypotensive at 12 minutes into the test but asymptomatic. BP 86/ 50 with HR of 120. Test was terminated prematurely and was given fluids with good response. Hypotension most likely secondary to dehydration. Objective - Vital Signs/Intake and Output Vital Signs (last 24 hours): Temp Pulse Resp BP Pulse Ox 98.2 F 87 20 119/63 100 09/09/16 08:38 09/09/16 08:38 09/09/16 08:38 09/09/16 08:38 09/09/16 08:38 Intake and Output: 09/09/16 09/09/16 06:59 18:59 Intake Total 500 Output Total 100 Balance 400 - Medications Medications: Current Medications Amlodipine Besylate (Norvasc) 5 mg PO DAILY [facility] Last Admin: 09/08/16 13:01 Dose: 5 mg Ciprofloxacin (Cipro) 500 mg PO BID [facility] Last Admin: 09/08/16 19:28 Dose: 500 mg Clopidogrel Bisulfate (Plavix) 75 mg PO DAILY [facility] Rosuvastatin Calcium (Crestor) 5 mg PO HS [facility] Fluticasone/Salmeterol (Advair Diskus 250/50) 1 puff INH RQ12 [facility] Last Admin: 09/09/16 07:42 Dose: 1 puff - Labs Labs: 09/02/16 08:09 09/08/16 07:14 PT 12.8 SECONDS (9.7-12.2) H 08/30/16 11:04 INR 1.1 08/30/16 11:04 APTT 34 SECONDS (21-34) 08/30/16 11:04
--- NOTE | 2016-09-09 09:54 | CP.PCM.PN ---
Subjective - Date & Time of Evaluation Date of Evaluation: 09/09/16 Time of Evaluation: 09:51 - Subjective Subjective: Pt underwent Lexiscan Stress test which revealed +ischemia in infero-septal area Objective - Vital Signs/Intake and Output Vital Signs (last 24 hours): Temp Pulse Resp BP Pulse Ox 98.2 F 87 20 119/63 100 09/09/16 08:38 09/09/16 08:38 09/09/16 08:38 09/09/16 08:38 09/09/16 08:38 Intake and Output: 09/09/16 09/09/16 06:59 18:59 Intake Total 500 Output Total 100 Balance 400 - Medications Medications: Current Medications Amlodipine Besylate (Norvasc) 5 mg PO DAILY [facility] Last Admin: 09/08/16 13:01 Dose: 5 mg Ciprofloxacin (Cipro) 500 mg PO BID [facility] Last Admin: 09/08/16 19:28 Dose: 500 mg Clopidogrel Bisulfate (Plavix) 75 mg PO DAILY [facility] Rosuvastatin Calcium (Crestor) 5 mg PO HS [facility] Fluticasone/Salmeterol (Advair Diskus 250/50) 1 puff INH RQ12 [facility] Last Admin: 09/09/16 07:42 Dose: 1 puff - Labs Labs: 09/02/16 08:09 09/08/16 07:14 PT 12.8 SECONDS (9.7-12.2) H 08/30/16 11:04 INR 1.1 08/30/16 11:04 APTT 34 SECONDS (21-34) 08/30/16 11:04 - Constitutional Appears: Non-toxic - Head Exam Additional comments: sutured laceration in left forehead - Eye Exam Eye Exam: absent: Scleral icterus - Neck Exam Neck Exam: Full ROM - Respiratory Exam Respiratory Exam: NORMAL BREATHING PATTERN - Cardiovascular Exam Cardiovascular Exam: REGULAR RHYTHM - GI/Abdominal Exam GI & Abdominal Exam: Soft. absent: Tenderness - Extremities Exam Extremities Exam: Pedal Edema, Tenderness Additional comments: leg ulcer - Neurological Exam Neurological Exam: Alert Assessment and Plan - Assessment and Plan (Free Text) Assessment: Syncope Elevated PSA - r/o Prostate Ca Plan: Will consider cath
--- NOTE | 2016-09-09 10:43 | CP.PCM.PN ---
Subjective - Date & Time of Evaluation Date of Evaluation: 09/09/16 Time of Evaluation: 10:41 - Subjective Subjective: Feeling better + EST noted- possible cath being considered Last Na-133- improving No new complaints Objective - Vital Signs/Intake and Output Vital Signs (last 24 hours): Temp Pulse Resp BP Pulse Ox 98.2 F 87 20 119/63 100 09/09/16 08:38 09/09/16 08:38 09/09/16 08:38 09/09/16 08:38 09/09/16 08:38 Intake and Output: 09/09/16 09/09/16 06:59 18:59 Intake Total 500 Output Total 100 Balance 400 - Medications Medications: Current Medications Amlodipine Besylate (Norvasc) 5 mg PO DAILY [facility] Last Admin: 09/08/16 13:01 Dose: 5 mg Ciprofloxacin (Cipro) 500 mg PO BID [facility] Last Admin: 09/08/16 19:28 Dose: 500 mg Clopidogrel Bisulfate (Plavix) 75 mg PO DAILY [facility] Rosuvastatin Calcium (Crestor) 5 mg PO [facility] Fluticasone/Salmeterol (Advair Diskus 250/50) 1 puff INH RQ12 [facility] Last Admin: 09/09/16 07:42 Dose: 1 puff - Labs Labs: 09/02/16 08:09 09/08/16 07:14 PT 12.8 SECONDS (9.7-12.2) H 08/30/16 11:04 INR 1.1 08/30/16 11:04 APTT 34 SECONDS (21-34) 08/30/16 11:04 - Constitutional Appears: No Acute Distress, Chronically Ill - Head Exam Head Exam: ATRAUMATIC, NORMAL INSPECTION - Eye Exam Eye Exam: EOMI, Normal appearance - Neck Exam Neck Exam: Normal Inspection. absent: Tenderness - Respiratory Exam Respiratory Exam: Clear to Ausculation Bilateral, NORMAL BREATHING PATTERN - Cardiovascular Exam Cardiovascular Exam: REGULAR RHYTHM, +S1 - GI/Abdominal Exam GI & Abdominal Exam: Soft. absent: Tenderness - Extremities Exam Extremities Exam: Normal Inspection. absent: Tenderness - Neurological Exam Neurological Exam: Alert, CN II-XII Intact - Skin Skin Exam: Dry, Warm Assessment and Plan (1) HTN (hypertension) Status: Acute (2) Dizziness Status: Acute (3) Encephalopathy, metabolic Status: Acute (4) Forehead laceration Status: Acute (5) Hyponatremia Status: Chronic - Assessment and Plan (Free Text) Plan: continue oral fluid restriction Recheck lytes considering cardiac cath
--- NOTE | 2016-09-09 17:25 | CP.PCM.CON ---
History of Present Illness - History of Present Illness History of Present Illness: This is a case of 81 year old male currently admitted for syncope and referred by Dr. Gustafson for competency to give consent for procedures. Patient has been noted to have periods of forgetfulness but otherwise he is doing well and cooperative with tx plan. Has had multiple dx tests done earlier and has given his consent with complications.Patient states he feels weak and has problems walking. He is willing aloneto go to [facility] for MIKE as he states he was there before and liked the place. Patient is compliant with meds and care. Had CT scan of the Head and MRI of the brain and both showed no evidence of acute bleed. Past Psych hx- denies any Drug and Alcohol Hx- denies any Medical hx- hx of UTI, syncope, delirium, prostate problems, HTN Psychosocial hx- patient lives alone. MSE- elderly male, seen his room with staff, oriented x 3, speech is spontanoues , affect is reactive. Mood is calm. TP -forgetful at times. TC- no si or hi,no psychosis. Attention and Memory- fair. Insight and Judgment fair. Impulse control fair. Review of Systems - Constitutional Constitutional: Lethargy, Weakness - EENT Additional comments: no headache or blurring of vision - Cardiovascular Additional comments: no chest pain - Respiratory Additional comments: no dyspnea - Gastrointestinal Additional comments: eats well, no abdominal pain, no nausea or vomiting - Genitourinary Additional comments: no dysuria - Musculoskeletal Musculoskeletal: Abnormal Gait - Integumentary Additional comments: no pruritus - Neurological Neurological: Abnormal Gait, Syncope Past Patient History - Infectious Disease Hx of Infectious Diseases: None - Past Medical History & Family History Past Medical History?: No Past Family History: Reviewed and not pertinent - Past Social History Smoking Status: Light Smoker < 10 Cigarettes Daily Chewing Tobacco Use: No Cigar Use: No Alcohol: Occasional - CARDIAC Hx Hypertension: Yes - PULMONARY Hx Chronic Obstructive Pulmonary Disease (COPD): Yes - NEUROLOGICAL HX Cerebrovascular Accident: Yes (7 YEARS AGO) - MUSCULOSKELETAL/RHEUMATOLOGICAL Hx Falls: Yes - PSYCHIATRIC Hx Substance Use: No - SURGICAL HISTORY Hx Surgeries: No - ANESTHESIA Hx Anesthesia: No Meds Allergies/Adverse Reactions: Allergies Allergy/AdvReac Type Severity Reaction Status Date / Time No Known Allergies Allergy Verified 08/30/16 10:34 - Medications Medications: Current Medications Amlodipine Besylate (Norvasc) 5 mg PO DAILY [facility] Last Admin: 09/09/16 10:51 Dose: 5 mg Ciprofloxacin (Cipro) 500 mg PO BID [facility] Last Admin: 09/09/16 10:51 Dose: 500 mg Clopidogrel Bisulfate (Plavix) 75 mg PO DAILY [facility] Last Admin: 09/09/16 10:50 Dose: 75 mg Rosuvastatin Calcium (Crestor) 5 mg PO [facility] Fluticasone/Salmeterol (Advair Diskus 250/50) 1 puff INH RQ12 [facility] Last Admin: 09/09/16 07:42 Dose: 1 puff Results - Vital Signs Recent Vital Signs: Last Vital Signs Temp 98.2 F 09/09/16 15:14 Pulse 90 09/09/16 15:14 Resp 20 09/09/16 15:14 BP 104/60 09/09/16 15:14 Pulse Ox 98 09/09/16 15:14 - Labs Result Diagrams: 09/02/16 08:09 09/08/16 07:14 Assessment & Plan - Assessment and Plan (Free Text) Assessment: hx of delirium Mood disorder sec to medical condition Plan: Patient seen.Patient willing to go for MIKE to [facility]. Patient still has decisional capacity to manage his medical and financial affairs. No need for psych meds at this time. - Date & Time Date: 09/09/16 Time: 17:31
[2016-09-10] MEDS ORDERED: Iohexol 350mg/ml 100 ML ONE ×2 (08:30→09:04)
[2016-09-10] MEDS: Fluticasone-Salmeterol 250-50mcg Diskus INH SCH ×2 (08:31→19:55)
--- NOTE | 2016-09-10 08:31 | CP.PCM.PN ---
Subjective - Date & Time of Evaluation Date of Evaluation: 09/10/16 Time of Evaluation: 08:30 - Subjective Subjective: Pt no complain; no CP, no SOB, no edema, dry cough For Cath c/o (+) stress test Objective - Vital Signs/Intake and Output Vital Signs (last 24 hours): Temp Pulse Resp BP Pulse Ox 97.9 F 88 20 108/63 99 09/10/16 07:45 09/10/16 07:45 09/10/16 07:45 09/10/16 07:45 09/10/16 07:45 Intake and Output: 09/10/16 09/10/16 06:59 18:59 Intake Total 350 Output Total 350 Balance 0 - Medications Medications: Current Medications Amlodipine Besylate (Norvasc) 5 mg PO DAILY [facility] Last Admin: 09/09/16 10:51 Dose: 5 mg Ciprofloxacin (Cipro) 500 mg PO BID [facility] Last Admin: 09/09/16 17:56 Dose: 500 mg Clopidogrel Bisulfate (Plavix) 75 mg PO DAILY [facility] Last Admin: 09/09/16 10:50 Dose: 75 mg Rosuvastatin Calcium (Crestor) 5 mg PO HS [facility] Last Admin: 09/09/16 21:25 Dose: 5 mg Fluticasone/Salmeterol (Advair Diskus 250/50) 1 puff INH RQ12 [facility] Last Admin: 09/09/16 19:05 Dose: 1 puff - Labs Labs: 09/02/16 08:09 09/08/16 07:14 PT 12.8 SECONDS (9.7-12.2) H 08/30/16 11:04 INR 1.1 08/30/16 11:04 APTT 34 SECONDS (21-34) 08/30/16 11:04 - Constitutional Appears: No Acute Distress - Eye Exam Eye Exam: Normal appearance - ENT Exam ENT Exam: Mucous Membranes Moist - Neck Exam Neck Exam: Full ROM. absent: Lymphadenopathy, Normal Inspection - Respiratory Exam Respiratory Exam: Clear to Ausculation Bilateral. absent: Rales, Rhonchi, Wheezes - Cardiovascular Exam Cardiovascular Exam: +S1, +S2, Murmur. absent: Gallop, REGULAR RHYTHM, JVD - GI/Abdominal Exam GI & Abdominal Exam: Soft. absent: Tenderness, Mass - Extremities Exam Extremities Exam: Joint Swelling, Normal Capillary Refill. absent: Calf Tenderness, Pedal Edema Assessment and Plan - Assessment and Plan (Free Text) Assessment: Syncope w/ (+) Stress test Inc PSA; UTI Laceratioon L forehead For Suture removal Cont meds
[2016-09-10 08:46] LABS: ALBUMIN 2.6 g/dL (3.5-5.0)
[2016-09-10] MEDS ORDERED: Midazolam 2 MG/2 ML VIAL ONE (08:46)
[2016-09-10 08:49] LABS: ALB/GLOB RATIO 0.8 (1.0-2.1); ALT/SGPT 21 U/L (21-72); AST/SGOT 19 U/L (17-59); BLOOD UREA NITROGEN 9 mg/dL (9-20); GFR AFRICAN-AMERICAN > 60; GFR NON-AFRICAN AMERICAN > 60
[2016-09-10 08:50] LABS: CALCIUM 7.8 mg/dl (8.6-10.4)
--- NOTE | 2016-09-10 10:01 | CP.PCM.PN ---
Subjective - Date & Time of Evaluation Date of Evaluation: 09/10/16 Time of Evaluation: 09:31 - Subjective Subjective: PROCEDURE NOTE Proc: [facility] Coronary arteriogram Left ventriculogram Indic: Syncope w/ Abnormal Lexiscan Anesthesia: Moderate sedation Objective - Vital Signs/Intake and Output Vital Signs (last 24 hours): Temp Pulse Resp BP Pulse Ox 97.9 F 88 20 108/63 99 09/10/16 07:45 09/10/16 07:45 09/10/16 07:45 09/10/16 07:45 09/10/16 07:45 Intake and Output: 09/10/16 09/10/16 06:59 18:59 Intake Total 350 Output Total 350 Balance 0 - Medications Medications: Current Medications Amlodipine Besylate (Norvasc) 5 mg PO DAILY [facility] Last Admin: 09/09/16 10:51 Dose: 5 mg Ciprofloxacin (Cipro) 500 mg PO BID [facility] Last Admin: 09/09/16 17:56 Dose: 500 mg Clopidogrel Bisulfate (Plavix) 75 mg PO DAILY [facility] Last Admin: 09/09/16 10:50 Dose: 75 mg Rosuvastatin Calcium (Crestor) 5 mg PO HS [facility] Last Admin: 09/09/16 21:25 Dose: 5 mg Fluticasone/Salmeterol (Advair Diskus 250/50) 1 puff INH RQ12 [facility] Last Admin: 09/10/16 08:31 Dose: Not Given - Labs Labs: 09/02/16 08:09 09/10/16 08:13 PT 12.8 SECONDS (9.7-12.2) H 08/30/16 11:04 INR 1.1 08/30/16 11:04 APTT 34 SECONDS (21-34) 08/30/16 11:04
--- NOTE | 2016-09-10 13:15 | CP.PCM.PN ---
Subjective - Date & Time of Evaluation Date of Evaluation: 09/10/16 Time of Evaluation: 13:13 - Subjective Subjective: Patient seen for follow-up. Mental status remains stable and went for cardiac cath today. Pleasant on approach. MSE- elderly male, alert and oriented x 3, mood is calm, affect is reactive. speech is spontaneous. TP- coherent TC- no si or hi, no psychosis. Attention and memory fair. Insight and judgment fair. Impulse control fair. Objective - Vital Signs/Intake and Output Vital Signs (last 24 hours): Temp Pulse Resp BP Pulse Ox 97.9 F 88 20 108/63 99 09/10/16 07:45 09/10/16 07:45 09/10/16 07:45 09/10/16 07:45 09/10/16 07:45 Intake and Output: 09/10/16 09/10/16 06:59 18:59 Intake Total 350 Output Total 350 Balance 0 - Medications Medications: Current Medications Amlodipine Besylate (Norvasc) 5 mg PO DAILY [facility] Last Admin: 09/10/16 11:20 Dose: 5 mg Ciprofloxacin (Cipro) 500 mg PO BID [facility] Last Admin: 09/10/16 11:20 Dose: 500 mg Clopidogrel Bisulfate (Plavix) 75 mg PO DAILY [facility] Last Admin: 09/10/16 11:20 Dose: 75 mg Rosuvastatin Calcium (Crestor) 5 mg PO HS [facility] Last Admin: 09/09/16 21:25 Dose: 5 mg Fluticasone/Salmeterol (Advair Diskus 250/50) 1 puff INH RQ12 [facility] Last Admin: 09/10/16 08:31 Dose: Not Given - Labs Labs: 09/02/16 08:09 09/10/16 08:13 PT 12.8 SECONDS (9.7-12.2) H 08/30/16 11:04 INR 1.1 08/30/16 11:04 APTT 34 SECONDS (21-34) 08/30/16 11:04 - Constitutional Appears: Well, No Acute Distress - Head Exam Head Exam: NORMOCEPHALIC - Eye Exam Eye Exam: Normal appearance Pupil Exam: NORMAL ACCOMODATION - ENT Exam ENT Exam: Normal Exam - Neck Exam Neck Exam: Full ROM - Respiratory Exam Respiratory Exam: NORMAL BREATHING PATTERN - Cardiovascular Exam Cardiovascular Exam: REGULAR RHYTHM - GI/Abdominal Exam GI & Abdominal Exam: Soft, Normal Bowel Sounds. absent: Tenderness - Exam Additional comments: no dysuria - Extremities Exam Additional comments: gait is unsteady - Neurological Exam Neurological Exam: Abnormal Gait, Oriented x3 - Psychiatric Exam Psychiatric exam: Normal Affect, Normal Mood - Skin Skin Exam: Normal Color Assessment and Plan - Assessment and Plan (Free Text) Assessment: Syncope hx of delirium gait dysfunction Plan: Patient seen. Continue tx plan.Patient to go for [facility]KE to [facility] once medically cleared.
--- NOTE | 2016-09-10 14:10 | PCM.URO ---
Urology Progress Note - General General: No Complaints, Tolerating Diet - Subjective Abdominal Pain: No Flank Pain: No Nausea: No Vomiting: No Voiding Well: Yes Dysuria: No Hematuria: No Urinary Urgency: No Good Stream: Yes Stone Passed: No Dsypnea: No Chest Pain: No Fever & Chills: No Other: pt remains in bed. comfortable - Objective Lab Studies: Reviewed (prostate bx: diogo 9 prostate ca discussed with pathologist) Lab Results Last 24 Hours: Laboratory Results - last 24 hr 09/10/16 08:13 Sodium 131 L Potassium 3.5 L Chloride 97 L Carbon Dioxide 27 Anion Gap 11 BUN 9 Creatinine 0.5 L Est GFR ( Amer) > 60 Est GFR (Non-Af Amer) > 60 Random Glucose 85 Calcium 7.8 L Total Bilirubin 0.8 AST 19 ALT 21 D Alkaline Phosphatase 73 Total Protein 5.7 L Albumin 2.6 L Globulin 3.1 Albumin/Globulin Ratio 0.8 L Intake & Output: Intake & Output 09/09/16 09/10/16 09/10/16 18:59 06:59 18:59 Intake Total 400 350 Output Total 350 Balance 400 0 Intake: Oral 400 350 Output: Urine 350 Urine, Voided 350 Other: # Voids Urine, Voided 3 # Bowel Movements 0 0 Vital Signs: Vital Signs - 24 hr 09/09/16 09/09/16 09/10/16 15:14 23:25 06:03 Temperature 98.2 F 98 F Pulse Rate 90 97 H 90 Respiratory 20 20 Rate Blood Pressure 104/60 110/66 O2 Sat by Pulse 98 96 Oximetry 09/10/16 09/10/16 07:00 07:45 Temperature 97.9 F Pulse Rate 78 88 Respiratory 20 Rate Blood Pressure 108/63 O2 Sat by Pulse 99 Oximetry - Physical Exam Abdominal Exam: Soft, Non-Tender, Non-Distended Bowel Sounds: Normal Back: No CVA Tenderness Genitalia: Without Inflammation Urine Color: Clear, Yellow - Male Phallus: Normal - Plan Additional Information: IMP: PROSTATE CANCER - HIGH RISK. Plan/rec: bone scan. ct scan. prob hormonal therapy t/f - Date & Time of Note Date: 09/10/16 Time: 14:10
--- NOTE | 2016-09-10 15:01 | CP.PCM.PN ---
Subjective - Date & Time of Evaluation Date of Evaluation: 09/10/16 Time of Evaluation: 14:58 - Subjective Subjective: Feels same No more dizziness rehab pending Na-131- stable BP stable Objective - Vital Signs/Intake and Output Vital Signs (last 24 hours): Temp Pulse Resp BP Pulse Ox 97.9 F 88 20 108/63 99 09/10/16 07:45 09/10/16 07:45 09/10/16 07:45 09/10/16 07:45 09/10/16 07:45 Intake and Output: 09/10/16 09/10/16 06:59 18:59 Intake Total 350 300 Output Total 350 Balance 0 300 - Medications Medications: Current Medications Amlodipine Besylate (Norvasc) 5 mg PO DAILY [facility] Last Admin: 09/10/16 11:20 Dose: 5 mg Ciprofloxacin (Cipro) 500 mg PO BID [facility] Last Admin: 09/10/16 11:20 Dose: 500 mg Clopidogrel Bisulfate (Plavix) 75 mg PO DAILY [facility] Last Admin: 09/10/16 11:20 Dose: 75 mg Rosuvastatin Calcium (Crestor) 5 mg PO HS [facility] Last Admin: 09/09/16 21:25 Dose: 5 mg Fluticasone/Salmeterol (Advair Diskus 250/50) 1 puff INH RQ12 [facility] Last Admin: 09/10/16 08:31 Dose: Not Given - Labs Labs: 09/02/16 08:09 09/10/16 08:13 PT 12.8 SECONDS (9.7-12.2) H 08/30/16 11:04 INR 1.1 08/30/16 11:04 APTT 34 SECONDS (21-34) 08/30/16 11:04 - Constitutional Appears: Non-toxic, Chronically Ill - Head Exam Head Exam: ATRAUMATIC, NORMAL INSPECTION - Eye Exam Eye Exam: EOMI, Normal appearance - Neck Exam Neck Exam: Normal Inspection. absent: Tenderness - Respiratory Exam Respiratory Exam: Clear to Ausculation Bilateral, NORMAL BREATHING PATTERN - Cardiovascular Exam Cardiovascular Exam: REGULAR RHYTHM, +S1 - GI/Abdominal Exam GI & Abdominal Exam: Soft. absent: Tenderness - Extremities Exam Extremities Exam: Normal Inspection. absent: Tenderness - Neurological Exam Neurological Exam: Awake, CN II-XII Intact - Skin Skin Exam: Dry, Warm Assessment and Plan (1) HTN (hypertension) Status: Acute (2) Dizziness Status: Acute (3) Encephalopathy, metabolic Status: Acute (4) Forehead laceration Status: Acute (5) Hyponatremia Status: Chronic - Assessment and Plan (Free Text) Plan: Same oral fluid restriction Na levels acceptable Likely for rehab soon Continue to monitor hyponatremia
--- NOTE | 2016-09-10 21:38 | CP.PCM.CON ---
History of Present Illness - History of Present Illness History of Present Illness: Patient seen and evaluated s/p Cath with Triple vessel CAD Not a cabdidate for CABG due to general condition PCI of selective lesions for optimum revascularization Will d/w patient and the family Past Patient History - Infectious Disease Hx of Infectious Diseases: None - Past Medical History & Family History Past Medical History?: No Past Family History: Reviewed and not pertinent - Past Social History Smoking Status: Light Smoker < 10 Cigarettes Daily Chewing Tobacco Use: No Cigar Use: No Alcohol: Occasional - CARDIAC Hx Hypertension: Yes - PULMONARY Hx Chronic Obstructive Pulmonary Disease (COPD): Yes - NEUROLOGICAL HX Cerebrovascular Accident: Yes (7 YEARS AGO) - MUSCULOSKELETAL/RHEUMATOLOGICAL Hx Falls: Yes - PSYCHIATRIC Hx Substance Use: No - SURGICAL HISTORY Hx Surgeries: No - ANESTHESIA Hx Anesthesia: No Meds Allergies/Adverse Reactions: Allergies Allergy/AdvReac Type Severity Reaction Status Date / Time No Known Allergies Allergy Verified 08/30/16 10:34 - Medications Medications: Current Medications Amlodipine Besylate (Norvasc) 5 mg PO DAILY [facility] Last Admin: 09/10/16 11:20 Dose: 5 mg Ciprofloxacin (Cipro) 500 mg PO BID [facility] Last Admin: 09/10/16 17:40 Dose: 500 mg Clopidogrel Bisulfate (Plavix) 75 mg PO DAILY [facility] Last Admin: 09/10/16 11:20 Dose: 75 mg Rosuvastatin Calcium (Crestor) 5 mg PO HS [facility] Last Admin: 09/09/16 21:25 Dose: 5 mg Fluticasone/Salmeterol (Advair Diskus 250/50) 1 puff INH RQ12 [facility] Last Admin: 09/10/16 19:55 Dose: Not Given Results - Vital Signs Recent Vital Signs: Last Vital Signs Temp 97.9 F 09/10/16 07:45 Pulse 89 09/10/16 15:02 Resp 20 09/10/16 07:45 BP 108/63 09/10/16 07:45 Pulse Ox 99 09/10/16 07:45 - Labs Result Diagrams: 09/02/16 08:09 09/10/16 08:13 Labs: Laboratory Results - last 24 hr 09/10/16 08:13 Sodium 131 L Potassium 3.5 L Chloride 97 L Carbon Dioxide 27 Anion Gap 11 BUN 9 Creatinine 0.5 L Est GFR ( Amer) > 60 Est GFR (Non-Af Amer) > 60 Random Glucose 85 Calcium 7.8 L Total Bilirubin 0.8 AST 19 ALT 21 D Alkaline Phosphatase 73 Total Protein 5.7 L Albumin 2.6 L Globulin 3.1 Albumin/Globulin Ratio 0.8 L
[2016-09-11] MEDS: Fluticasone-Salmeterol 250-50mcg Diskus INH SCH ×2 (07:46→19:54)
--- NOTE | 2016-09-11 07:57 | CP.PCM.PN ---
Subjective - Date & Time of Evaluation Date of Evaluation: 09/11/16 Time of Evaluation: 07:35 - Subjective Subjective: Pt no complain; Want to go to [facility] No CP, no SOB, no cough Objective - Vital Signs/Intake and Output Vital Signs (last 24 hours): Temp Pulse Resp BP Pulse Ox 98.1 F 87 20 130/73 98 09/10/16 23:15 09/11/16 03:48 09/10/16 23:15 09/10/16 23:15 09/10/16 23:15 Intake and Output: 09/11/16 09/11/16 06:59 18:59 Intake Total 500 Balance 500 - Medications Medications: Current Medications Amlodipine Besylate (Norvasc) 5 mg PO DAILY [facility] Last Admin: 09/10/16 11:20 Dose: 5 mg Ciprofloxacin (Cipro) 500 mg PO BID [facility] Last Admin: 09/10/16 17:40 Dose: 500 mg Clopidogrel Bisulfate (Plavix) 75 mg PO DAILY [facility] Last Admin: 09/10/16 11:20 Dose: 75 mg Rosuvastatin Calcium (Crestor) 5 mg PO HS [facility] Last Admin: 09/10/16 22:00 Dose: 5 mg Fluticasone/Salmeterol (Advair Diskus 250/50) 1 puff INH RQ12 [facility] Last Admin: 09/11/16 07:46 Dose: 1 puff - Labs Labs: 09/02/16 08:09 09/10/16 08:13 PT 12.8 SECONDS (9.7-12.2) H 08/30/16 11:04 INR 1.1 08/30/16 11:04 APTT 34 SECONDS (21-34) 08/30/16 11:04 - Constitutional Appears: No Acute Distress - Eye Exam Eye Exam: Normal appearance - ENT Exam ENT Exam: Mucous Membranes Moist - Respiratory Exam Respiratory Exam: Decreased Breath Sounds. absent: Rales, Rhonchi, Wheezes - Cardiovascular Exam Cardiovascular Exam: +S1, Murmur. absent: Gallop, REGULAR RHYTHM, JVD - GI/Abdominal Exam GI & Abdominal Exam: Soft. absent: Tenderness, Mass - Extremities Exam Extremities Exam: Pedal Edema. absent: Calf Tenderness, Joint Swelling, Normal Capillary Refill Assessment and Plan - Assessment and Plan (Free Text) Assessment: CAD; syncope HTN, Inc PSA ? cancer; COPD, Carotid Stenosis Cont meds for suture removal
--- NOTE | 2016-09-11 09:58 | CP.PCM.PN ---
Subjective - Date & Time of Evaluation Date of Evaluation: 09/11/16 Time of Evaluation: 09:55 - Subjective Subjective: pt seen and examined in bed, resting no complaints of N, V, dizziness, no headaches no SOB sodium 131 yesterday- no new labs today ROS- 10 point ROS negative Objective - Vital Signs/Intake and Output Vital Signs (last 24 hours): Temp Pulse Resp BP Pulse Ox 98.3 F 90 20 100/58 L 99 09/11/16 08:00 09/11/16 08:00 09/11/16 08:00 09/11/16 08:00 09/11/16 08:00 Intake and Output: 09/11/16 09/11/16 06:59 18:59 Intake Total 500 Balance 500 - Medications Medications: Current Medications Amlodipine Besylate (Norvasc) 5 mg PO DAILY [facility] Last Admin: 09/10/16 11:20 Dose: 5 mg Ciprofloxacin (Cipro) 500 mg PO BID [facility] Last Admin: 09/10/16 17:40 Dose: 500 mg Clopidogrel Bisulfate (Plavix) 75 mg PO DAILY [facility] Last Admin: 09/10/16 11:20 Dose: 75 mg Rosuvastatin Calcium (Crestor) 5 mg PO HS [facility] Last Admin: 09/10/16 22:00 Dose: 5 mg Fluticasone/Salmeterol (Advair Diskus 250/50) 1 puff INH RQ12 [facility] Last Admin: 09/11/16 07:46 Dose: 1 puff - Labs Labs: 09/02/16 08:09 09/10/16 08:13 PT 12.8 SECONDS (9.7-12.2) H 08/30/16 11:04 INR 1.1 08/30/16 11:04 APTT 34 SECONDS (21-34) 08/30/16 11:04 - Constitutional Appears: No Acute Distress, Older Than Stated Age, Chronically Ill - Head Exam Head Exam: ATRAUMATIC, NORMOCEPHALIC - Eye Exam Eye Exam: EOMI, Normal appearance, PERRL - ENT Exam ENT Exam: Mucous Membranes Moist - Neck Exam Neck Exam: Full ROM - Respiratory Exam Respiratory Exam: Clear to Ausculation Bilateral. absent: Rhonchi, Wheezes - Cardiovascular Exam Cardiovascular Exam: REGULAR RHYTHM, +S1, +S2 - GI/Abdominal Exam GI & Abdominal Exam: Soft. absent: Tenderness - Extremities Exam Extremities Exam: absent: Pedal Edema - Neurological Exam Neurological Exam: Alert, Awake, Oriented x3 - Psychiatric Exam Psychiatric exam: Normal Affect, Normal Mood - Skin Skin Exam: Dry, Warm Assessment and Plan (1) Encephalopathy, metabolic Status: Acute (2) Forehead laceration Status: Acute (3) HTN (hypertension) Status: Acute (4) Hyponatremia Status: Chronic - Assessment and Plan (Free Text) Plan: sodium level stable asymptomatic continue with fluids restriction labs in am awaiting rehab
--- NOTE | 2016-09-11 15:34 | CP.PCM.PN ---
Subjective - Date & Time of Evaluation Date of Evaluation: 09/11/16 Time of Evaluation: 15:31 - Subjective Subjective: Patient seen for follow-up. Patient is awaiting transfer to [facility] for [facility] once medically cleared. Mental status stable and cooperative with tests. MSE-an elderly male, oriented x 3, speech is clear. affect is reactive. mood is calm. TP - coherent. TC- no si o rhi, no psychosis. Attention and memory- improved. Insight and Judgment fair. Impulse control fair. Objective - Vital Signs/Intake and Output Vital Signs (last 24 hours): Temp Pulse Resp BP Pulse Ox 98.3 F 90 20 100/58 L 99 09/11/16 08:00 09/11/16 08:00 09/11/16 08:00 09/11/16 08:00 09/11/16 08:00 Intake and Output: 09/11/16 09/11/16 06:59 18:59 Intake Total 500 Balance 500 - Medications Medications: Current Medications Amlodipine Besylate (Norvasc) 5 mg PO DAILY [facility] Last Admin: 09/11/16 10:23 Dose: Not Given Ciprofloxacin (Cipro) 500 mg PO BID [facility] Last Admin: 09/11/16 10:23 Dose: 500 mg Clopidogrel Bisulfate (Plavix) 75 mg PO DAILY [facility] Last Admin: 09/11/16 10:23 Dose: 75 mg Rosuvastatin Calcium (Crestor) 5 mg PO HS [facility] Last Admin: 09/10/16 22:00 Dose: 5 mg Fluticasone/Salmeterol (Advair Diskus 250/50) 1 puff INH RQ12 [facility] Last Admin: 09/11/16 07:46 Dose: 1 puff - Labs Labs: 09/02/16 08:09 09/10/16 08:13 PT 12.8 SECONDS (9.7-12.2) H 08/30/16 11:04 INR 1.1 08/30/16 11:04 APTT 34 SECONDS (21-34) 08/30/16 11:04 - Constitutional Appears: Well, No Acute Distress - Head Exam Head Exam: NORMOCEPHALIC - Eye Exam Eye Exam: Normal appearance Pupil Exam: NORMAL ACCOMODATION - ENT Exam ENT Exam: Normal Exam - Respiratory Exam Respiratory Exam: NORMAL BREATHING PATTERN - Cardiovascular Exam Additional comments: no chest pain - GI/Abdominal Exam Additional comments: no nausea or vomiting, eats well - Exam Additional comments: no dysuria - Back Exam Back Exam: NORMAL INSPECTION - Neurological Exam Neurological Exam: Abnormal Gait, Alert, Awake, Oriented x3 - Psychiatric Exam Psychiatric exam: Normal Affect, Normal Mood - Skin Skin Exam: Normal Color Assessment and Plan - Assessment and Plan (Free Text) Assessment: Syncope Delirium- improved Gait dysfunction Plan: Psych stable to go for MIKE to [facility] once medically cleared. Continue tx plan as ordered.
[2016-09-12] MEDS: Fluticasone-Salmeterol 250-50mcg Diskus INH SCH ×2 (08:28→19:49)
[2016-09-12 08:29] LABS: GFR AFRICAN-AMERICAN > 60; GFR NON-AFRICAN AMERICAN > 60
[2016-09-12 08:30] LABS: BLOOD UREA NITROGEN 12 mg/dL (9-20); CALCIUM 8.1 mg/dl (8.6-10.4)
--- NOTE | 2016-09-12 12:40 | CP.PCM.PN ---
Subjective - Date & Time of Evaluation Date of Evaluation: 09/11/16 Time of Evaluation: 16:10 - Subjective Subjective: Patient has H/O severe Carotid artery disease presented with syncope Unlikely can be explained by his CAD Prior to PCI recommend Carotid evelauation Check carotid duplex and evaluation by Dr. Tate Objective - Vital Signs/Intake and Output Vital Signs (last 24 hours): Temp Pulse Resp BP Pulse Ox 98.2 F 68 20 103/57 L 99 09/12/16 09:04 09/12/16 09:04 09/12/16 09:04 09/12/16 09:04 09/12/16 09:04 Intake and Output: 09/12/16 09/12/16 06:59 18:59 Intake Total 150 Balance 150 - Medications Medications: Current Medications Amlodipine Besylate (Norvasc) 5 mg PO DAILY [facility] Last Admin: 09/12/16 10:40 Dose: 5 mg Clopidogrel Bisulfate (Plavix) 75 mg PO DAILY [facility] Last Admin: 09/12/16 10:40 Dose: 75 mg Rosuvastatin Calcium (Crestor) 5 mg PO HS [facility] Last Admin: 09/11/16 21:58 Dose: 5 mg Fluticasone/Salmeterol (Advair Diskus 250/50) 1 puff INH RQ12 [facility] Last Admin: 09/12/16 08:28 Dose: 1 puff - Labs Labs: 09/02/16 08:09 09/12/16 07:56 PT 12.8 SECONDS (9.7-12.2) H 08/30/16 11:04 INR 1.1 08/30/16 11:04 APTT 34 SECONDS (21-34) 08/30/16 11:04
--- NOTE | 2016-09-12 18:16 | CP.PCM.PN ---
Subjective - Date & Time of Evaluation Date of Evaluation: 09/12/16 Time of Evaluation: 18:13 - Subjective Subjective: Patient seen today and remains stable psych hartman. Awaiting medical clearance prior to transfer to [facility] for [facility]. Patient has no behavioral issues. MSE- fairly developed male, seen in his room, alert and oriented x 3, mood is calm, affect is reactive. speech is articulate. TP - coherent- TC- no si or hi, no psychosis. Attention and memory fair. Insight and Judgment fair. Impulse control fair. Objective - Vital Signs/Intake and Output Vital Signs (last 24 hours): Temp Pulse Resp BP Pulse Ox 97.5 F L 93 H 20 102/56 L 100 09/12/16 16:00 09/12/16 16:00 09/12/16 16:00 09/12/16 16:00 09/12/16 16:00 Intake and Output: 09/12/16 09/12/16 06:59 18:59 Intake Total 150 Balance 150 - Medications Medications: Current Medications Amlodipine Besylate (Norvasc) 5 mg PO DAILY [facility] Last Admin: 09/12/16 10:40 Dose: 5 mg Clopidogrel Bisulfate (Plavix) 75 mg PO DAILY [facility] Last Admin: 09/12/16 10:40 Dose: 75 mg Rosuvastatin Calcium (Crestor) 5 mg PO HS [facility] Last Admin: 09/11/16 21:58 Dose: 5 mg Fluticasone/Salmeterol (Advair Diskus 250/50) 1 puff INH RQ12 [facility] Last Admin: 09/12/16 08:28 Dose: 1 puff - Labs Labs: 09/02/16 08:09 09/12/16 07:56 PT 12.8 SECONDS (9.7-12.2) H 08/30/16 11:04 INR 1.1 08/30/16 11:04 APTT 34 SECONDS (21-34) 08/30/16 11:04 - Constitutional Appears: Well, No Acute Distress - Head Exam Head Exam: NORMOCEPHALIC - Eye Exam Eye Exam: Normal appearance - ENT Exam ENT Exam: Normal Exam - Neck Exam Neck Exam: Full ROM - Respiratory Exam Respiratory Exam: NORMAL BREATHING PATTERN - Cardiovascular Exam Additional comments: no chest pain - GI/Abdominal Exam Additional comments: eats well, no abdominal pain - Exam Additional comments: no dysuria - Extremities Exam Additional comments: gait is unsteady - Back Exam Additional comments: no back pain - Psychiatric Exam Psychiatric exam: Normal Affect, Normal Mood - Skin Skin Exam: Normal Color Assessment and Plan - Assessment and Plan (Free Text) Assessment: Hx of delirium syncope, UTI, HTN hyponatremia Plan: Continue tx plan as ordered. Patient awaiting medical clearance prior to transfer to [facility] for MIKE.
--- NOTE | 2016-09-12 22:29 | CP.PCM.PN ---
Subjective - Date & Time of Evaluation Date of Evaluation: 09/12/16 Time of Evaluation: 17:25 - Subjective Subjective: Patient seen and evaluated Hx of Severe Carotid disease. Patient admitted for syncope Check shukri and Dr. Tate consult Objective - Vital Signs/Intake and Output Vital Signs (last 24 hours): Temp Pulse Resp BP Pulse Ox 97.5 F L 93 H 20 102/56 L 100 09/12/16 16:00 09/12/16 16:00 09/12/16 16:00 09/12/16 16:00 09/12/16 16:00 Intake and Output: 09/12/16 09/13/16 18:59 06:59 Intake Total 240 Balance 240 - Medications Medications: Current Medications Amlodipine Besylate (Norvasc) 5 mg PO DAILY [facility] Last Admin: 09/12/16 10:40 Dose: 5 mg Clopidogrel Bisulfate (Plavix) 75 mg PO DAILY [facility] Last Admin: 09/12/16 10:40 Dose: 75 mg Rosuvastatin Calcium (Crestor) 5 mg PO HS [facility] Last Admin: 09/12/16 21:03 Dose: 5 mg Fluticasone/Salmeterol (Advair Diskus 250/50) 1 puff INH RQ12 [facility] Last Admin: 09/12/16 19:49 Dose: 1 puff - Labs Labs: 09/02/16 08:09 09/12/16 07:56 PT 12.8 SECONDS (9.7-12.2) H 08/30/16 11:04 INR 1.1 08/30/16 11:04 APTT 34 SECONDS (21-34) 08/30/16 11:04
[2016-09-13] MEDS: Fluticasone-Salmeterol 250-50mcg Diskus INH SCH ×2 (08:14→19:00)
--- NOTE | 2016-09-13 08:41 | CP.PCM.PN ---
Subjective - Date & Time of Evaluation Date of Evaluation: 09/13/16 Time of Evaluation: 08:25 - Subjective Subjective: Pt feels well; wound is okay, no pain No CP, npo SOB, no edema, min dry cough Objective - Vital Signs/Intake and Output Vital Signs (last 24 hours): Temp Pulse Resp BP Pulse Ox 97.7 F 89 20 114/65 96 09/12/16 23:30 09/13/16 04:01 09/12/16 23:30 09/12/16 23:30 09/12/16 23:30 Intake and Output: 09/13/16 09/13/16 06:59 18:59 Intake Total 390 Output Total 100 Balance 290 - Medications Medications: Current Medications Amlodipine Besylate (Norvasc) 5 mg PO DAILY [facility] Last Admin: 09/12/16 10:40 Dose: 5 mg Clopidogrel Bisulfate (Plavix) 75 mg PO DAILY [facility] Last Admin: 09/12/16 10:40 Dose: 75 mg Rosuvastatin Calcium (Crestor) 5 mg PO HS [facility] Last Admin: 09/12/16 21:03 Dose: 5 mg Fluticasone/Salmeterol (Advair Diskus 250/50) 1 puff INH RQ12 [facility] Last Admin: 09/13/16 08:14 Dose: 1 puff - Labs Labs: 09/02/16 08:09 09/12/16 07:56 PT 12.8 SECONDS (9.7-12.2) H 08/30/16 11:04 INR 1.1 08/30/16 11:04 APTT 34 SECONDS (21-34) 08/30/16 11:04 - Constitutional Appears: No Acute Distress - Eye Exam Eye Exam: Normal appearance - ENT Exam ENT Exam: Mucous Membranes Moist - Neck Exam Neck Exam: Full ROM. absent: Lymphadenopathy - Respiratory Exam Respiratory Exam: Clear to Ausculation Bilateral. absent: Rales, Rhonchi, Wheezes - Cardiovascular Exam Cardiovascular Exam: +S1, +S2. absent: Gallop, REGULAR RHYTHM - GI/Abdominal Exam GI & Abdominal Exam: Soft. absent: Tenderness, Normal Bowel Sounds - Extremities Exam Extremities Exam: Full ROM. absent: Calf Tenderness, Joint Swelling, Normal Capillary Refill, Pedal Edema Assessment and Plan - Assessment and Plan (Free Text) Assessment: Inc PSA; HTN; Syncope w/ R forehead laceration HTN, COPD cont meds
--- NOTE | 2016-09-13 10:50 | PCM.URO ---
Urology Progress Note - General General: No Complaints, Tolerating Diet - Subjective Abdominal Pain: No Flank Pain: No Nausea: No Vomiting: No Voiding Well: Yes Dysuria: No Hematuria: No Urinary Urgency: No Good Stream: Yes Dsypnea: No Chest Pain: No Fever & Chills: No - Objective Lab Studies: Reviewed Intake & Output: Intake & Output 09/12/16 09/13/16 09/13/16 18:59 06:59 18:59 Intake Total 390 Output Total 100 Balance 290 Weight 131 lb Intake: Oral 390 Output: Urine 100 Urine, Voided 100 Other: # Voids Urine, Voided 3 # Bowel Movements 0 Vital Signs: Vital Signs - 24 hr 09/12/16 09/12/16 09/13/16 16:00 23:30 00:00 Temperature 97.5 F L 97.7 F Pulse Rate 93 H 100 H 94 H Respiratory 20 20 Rate Blood Pressure 102/56 L 114/65 O2 Sat by Pulse 100 96 Oximetry 09/13/16 09/13/16 09/13/16 04:01 07:00 08:52 Temperature 98.2 F Pulse Rate 89 88 97 H Respiratory 20 Rate Blood Pressure 116/72 O2 Sat by Pulse 90 L Oximetry - Physical Exam Abdominal Exam: Soft, Non-Tender, Non-Distended Bowel Sounds: Normal Back: No CVA Tenderness Genitalia: Without Inflammation - Plan Additional Information: IMP: HIGH RISK PROSTATE CA. REC/PLAN: BONE SCAN. ANDROGEN DEPRIVATION THERAPY / HORMONAL THERAPY. POSS RADIATION THERAPY. POSS ONCOLOGY CONSULTATION. WILL DISCUSS RE FURTHER MANAGEMENT
--- NOTE | 2016-09-13 11:09 | CP.PCM.PN ---
Subjective - Date & Time of Evaluation Date of Evaluation: 09/13/16 Time of Evaluation: 11:06 - Subjective Subjective: Feels same For bone scan for prostate CA evaluation No new comp[laints Na-133- acceptable Objective - Vital Signs/Intake and Output Vital Signs (last 24 hours): Temp Pulse Resp BP Pulse Ox 98.2 F 97 H 20 116/72 90 L 09/13/16 08:52 09/13/16 08:52 09/13/16 08:52 09/13/16 08:52 09/13/16 08:52 Intake and Output: 09/13/16 09/13/16 06:59 18:59 Intake Total 390 Output Total 100 Balance 290 - Medications Medications: Current Medications Amlodipine Besylate (Norvasc) 5 mg PO DAILY [facility] Last Admin: 09/13/16 09:09 Dose: 5 mg Clopidogrel Bisulfate (Plavix) 75 mg PO DAILY [facility] Last Admin: 09/13/16 09:09 Dose: 75 mg Rosuvastatin Calcium (Crestor) 5 mg PO HS [facility] Last Admin: 09/12/16 21:03 Dose: 5 mg Fluticasone/Salmeterol (Advair Diskus 250/50) 1 puff INH RQ12 [facility] Last Admin: 09/13/16 08:14 Dose: 1 puff - Labs Labs: 09/02/16 08:09 09/12/16 07:56 PT 12.8 SECONDS (9.7-12.2) H 08/30/16 11:04 INR 1.1 08/30/16 11:04 APTT 34 SECONDS (21-34) 08/30/16 11:04 - Constitutional Appears: No Acute Distress, Chronically Ill - Head Exam Head Exam: ATRAUMATIC, NORMAL INSPECTION - Eye Exam Eye Exam: EOMI, Normal appearance - Neck Exam Neck Exam: Normal Inspection. absent: Tenderness - Respiratory Exam Respiratory Exam: Clear to Ausculation Bilateral, NORMAL BREATHING PATTERN - Cardiovascular Exam Cardiovascular Exam: REGULAR RHYTHM, +S1 - GI/Abdominal Exam GI & Abdominal Exam: Soft. absent: Tenderness - Extremities Exam Extremities Exam: Normal Inspection. absent: Tenderness - Neurological Exam Neurological Exam: Alert, CN II-XII Intact - Skin Skin Exam: Dry, Warm Assessment and Plan (1) HTN (hypertension) Status: Acute (2) Dizziness Status: Acute (3) Encephalopathy, metabolic Status: Acute (4) Forehead laceration Status: Acute (5) Hyponatremia Status: Chronic - Assessment and Plan (Free Text) Plan: Oral fluid restriction Monitor lytes periodically Bone scan
--- NOTE | 2016-09-13 15:02 | CP.PCM.PN ---
Subjective - Date & Time of Evaluation Date of Evaluation: 09/13/16 Time of Evaluation: 14:59 - Subjective Subjective: Patient seen for follow-up. Mental status stable. Patient awaiting cardiac clearance prior to transfer to [facility] for MIKE. MSE- elderly male, seen in his room, alert and oriented x 3. Mood is calm, euthymic. Affect is reactive. Speech is spontaneous. TP coherent- TC no si or hi , no psychosis. Patient still interested to go to [facility] for MIKE once medically cleared. Attention and memory fair. Insight and Judgment fair. Impulse control fair. Objective - Vital Signs/Intake and Output Vital Signs (last 24 hours): Temp Pulse Resp BP Pulse Ox 98.2 F 97 H 20 116/72 90 L 09/13/16 08:52 09/13/16 08:52 09/13/16 08:52 09/13/16 08:52 09/13/16 08:52 Intake and Output: 09/13/16 09/13/16 06:59 18:59 Intake Total 390 300 Output Total 100 Balance 290 300 - Medications Medications: Current Medications Amlodipine Besylate (Norvasc) 5 mg PO DAILY [facility] Last Admin: 09/13/16 09:09 Dose: 5 mg Clopidogrel Bisulfate (Plavix) 75 mg PO DAILY [facility] Last Admin: 09/13/16 09:09 Dose: 75 mg Rosuvastatin Calcium (Crestor) 5 mg PO HS [facility] Last Admin: 09/12/16 21:03 Dose: 5 mg Fluticasone/Salmeterol (Advair Diskus 250/50) 1 puff INH RQ12 [facility] Last Admin: 09/13/16 08:14 Dose: 1 puff - Labs Labs: 09/02/16 08:09 09/12/16 07:56 PT 12.8 SECONDS (9.7-12.2) H 08/30/16 11:04 INR 1.1 08/30/16 11:04 APTT 34 SECONDS (21-34) 08/30/16 11:04 - Constitutional Appears: Well, No Acute Distress - Head Exam Head Exam: NORMOCEPHALIC - Eye Exam Eye Exam: Normal appearance Pupil Exam: NORMAL ACCOMODATION - ENT Exam ENT Exam: Normal Exam - Neck Exam Neck Exam: Full ROM - Respiratory Exam Respiratory Exam: NORMAL BREATHING PATTERN - Cardiovascular Exam Cardiovascular Exam: REGULAR RHYTHM - GI/Abdominal Exam Additional comments: appetite is fair, no abdominal apin - Exam Additional comments: no dysuria - Extremities Exam Additional comments: gait is still unsteady - Neurological Exam Neurological Exam: Alert, Awake, Oriented x3 - Psychiatric Exam Psychiatric exam: Normal Affect, Normal Mood - Skin Skin Exam: Normal Color Assessment and Plan - Assessment and Plan (Free Text) Assessment: Delirium, Syncope.UTI, HTN gait dysfunction Plan: Mental status stable. Awaiting medical clearance prior to transfer for MIKE at [facility].
--- NOTE | 2016-09-13 15:25 | CP.PCM.PN ---
Subjective - Date & Time of Evaluation Date of Evaluation: 09/13/16 Time of Evaluation: 15:24 - Subjective Subjective: no plan for any surgical rx of carotid stenosis seen on duplex scan Objective - Vital Signs/Intake and Output Vital Signs (last 24 hours): Temp Pulse Resp BP Pulse Ox 98.2 F 97 H 20 116/72 90 L 09/13/16 08:52 09/13/16 08:52 09/13/16 08:52 09/13/16 08:52 09/13/16 08:52 Intake and Output: 09/13/16 09/13/16 06:59 18:59 Intake Total 390 300 Output Total 100 Balance 290 300 - Medications Medications: Current Medications Amlodipine Besylate (Norvasc) 5 mg PO DAILY [facility] Last Admin: 09/13/16 09:09 Dose: 5 mg Clopidogrel Bisulfate (Plavix) 75 mg PO DAILY [facility] Last Admin: 09/13/16 09:09 Dose: 75 mg Rosuvastatin Calcium (Crestor) 5 mg PO HS [facility] Last Admin: 09/12/16 21:03 Dose: 5 mg Fluticasone/Salmeterol (Advair Diskus 250/50) 1 puff INH RQ12 [facility] Last Admin: 09/13/16 08:14 Dose: 1 puff - Labs Labs: 09/02/16 08:09 09/12/16 07:56 PT 12.8 SECONDS (9.7-12.2) H 08/30/16 11:04 INR 1.1 08/30/16 11:04 APTT 34 SECONDS (21-34) 08/30/16 11:04
--- NOTE | 2016-09-13 16:46 | NM ---
PROCEDURE: Whole Body Bone Scan HISTORY: PROSTATE CANCER COMPARISON: None available. TECHNIQUE: Following administration of 24.3 miCu of Tc MDP multiplanar whole body images were obtained. FINDINGS: Evidence for bony metastatic disease: None. Degenerative uptake: Contiguous foci of increased uptake lateral right ribs consistent with prior trauma. Physiologic uptake: Normal physiologic activity in the kidneys. Other findings: None. IMPRESSION: No evidence of bony metastatic disease. Posttraumatic changes contiguous right lateral and anterolateral ribs.
--- NOTE | 2016-09-13 22:49 | CP.PCM.PN ---
Subjective - Date & Time of Evaluation Date of Evaluation: 09/13/16 Time of Evaluation: 17:50 - Subjective Subjective: Patient seen and evaluated Patient's syncope unlikely secondary to Coronary ischemia Troponins negative Medical mgt for CAD for now OP follow up in 2-3 weeks Objective - Vital Signs/Intake and Output Vital Signs (last 24 hours): Temp Pulse Resp BP Pulse Ox 98.1 F 92 H 20 114/70 98 09/13/16 16:22 09/13/16 16:22 09/13/16 16:22 09/13/16 16:22 09/13/16 16:22 Intake and Output: 09/13/16 09/14/16 18:59 06:59 Intake Total 300 300 Balance 300 300 - Medications Medications: Current Medications Amlodipine Besylate (Norvasc) 5 mg PO DAILY [facility] Last Admin: 09/13/16 09:09 Dose: 5 mg Clopidogrel Bisulfate (Plavix) 75 mg PO DAILY [facility] Last Admin: 09/13/16 09:09 Dose: 75 mg Rosuvastatin Calcium (Crestor) 5 mg PO HS [facility] Last Admin: 09/13/16 22:14 Dose: 5 mg Fluticasone/Salmeterol (Advair Diskus 250/50) 1 puff INH RQ12 [facility] Last Admin: 09/13/16 19:00 Dose: 1 puff - Labs Labs: 09/02/16 08:09 09/12/16 07:56 PT 12.8 SECONDS (9.7-12.2) H 08/30/16 11:04 INR 1.1 08/30/16 11:04 APTT 34 SECONDS (21-34) 08/30/16 11:04
[2016-09-14] MEDS: Fluticasone-Salmeterol 250-50mcg Diskus INH SCH (07:52)
--- NOTE | 2016-09-14 08:05 | CP.PCM.PN ---
Subjective - Date & Time of Evaluation Date of Evaluation: 09/14/16 Time of Evaluation: 08:05 - Subjective Subjective: Pt no complain; no CP, no cough, no diarrhea No cough, no n/v, (+) nocturia Objective - Vital Signs/Intake and Output Vital Signs (last 24 hours): Temp Pulse Resp BP Pulse Ox 98.0 F 100 H 20 93/58 L 99 09/14/16 00:12 09/14/16 00:12 09/14/16 00:12 09/14/16 00:12 09/14/16 00:12 Intake and Output: 09/14/16 09/14/16 06:59 18:59 Intake Total 300 Balance 300 - Medications Medications: Current Medications Amlodipine Besylate (Norvasc) 5 mg PO DAILY [facility] Last Admin: 09/13/16 09:09 Dose: 5 mg Clopidogrel Bisulfate (Plavix) 75 mg PO DAILY [facility] Last Admin: 09/13/16 09:09 Dose: 75 mg Rosuvastatin Calcium (Crestor) 5 mg PO HS [facility] Last Admin: 09/13/16 22:14 Dose: 5 mg Fluticasone/Salmeterol (Advair Diskus 250/50) 1 puff INH RQ12 [facility] Last Admin: 09/14/16 07:52 Dose: 1 puff - Labs Labs: 09/02/16 08:09 09/12/16 07:56 PT 12.8 SECONDS (9.7-12.2) H 08/30/16 11:04 INR 1.1 08/30/16 11:04 APTT 34 SECONDS (21-34) 08/30/16 11:04 - Constitutional Appears: No Acute Distress - Eye Exam Eye Exam: Normal appearance - ENT Exam ENT Exam: Mucous Membranes Moist - Neck Exam Neck Exam: Full ROM. absent: Thyromegaly - Respiratory Exam Respiratory Exam: Decreased Breath Sounds. absent: Rales, Rhonchi, Wheezes - GI/Abdominal Exam GI & Abdominal Exam: Soft. absent: Tenderness, Mass - Extremities Exam Extremities Exam: Full ROM, Normal Capillary Refill. absent: Calf Tenderness, Joint Swelling Assessment and Plan - Assessment and Plan (Free Text) Assessment: Prostate cancer; COPD; Carotid stenosis; CAD Discuss c/o no plan with surgery Will discharge on Subacute
--- NOTE | 2016-09-14 08:25 | CP.PCM.PN ---
Subjective - Date & Time of Evaluation Date of Evaluation: 09/12/16 Time of Evaluation: 17:00 - Subjective Subjective: no chest pain no syncope hx of severe carotid artery disease Objective - Vital Signs/Intake and Output Vital Signs (last 24 hours): Temp Pulse Resp BP Pulse Ox 98.0 F 100 H 20 93/58 L 99 09/14/16 00:12 09/14/16 00:12 09/14/16 00:12 09/14/16 00:12 09/14/16 00:12 Intake and Output: 09/14/16 09/14/16 06:59 18:59 Intake Total 300 Balance 300 - Medications Medications: Current Medications Amlodipine Besylate (Norvasc) 5 mg PO DAILY [facility] Last Admin: 09/13/16 09:09 Dose: 5 mg Clopidogrel Bisulfate (Plavix) 75 mg PO DAILY [facility] Last Admin: 09/13/16 09:09 Dose: 75 mg Rosuvastatin Calcium (Crestor) 5 mg PO HS [facility] Last Admin: 09/13/16 22:14 Dose: 5 mg Fluticasone/Salmeterol (Advair Diskus 250/50) 1 puff INH RQ12 [facility] Last Admin: 09/14/16 07:52 Dose: 1 puff - Labs Labs: 09/02/16 08:09 09/12/16 07:56 PT 12.8 SECONDS (9.7-12.2) H 08/30/16 11:04 INR 1.1 08/30/16 11:04 APTT 34 SECONDS (21-34) 08/30/16 11:04 - Constitutional Appears: Non-toxic - Eye Exam Eye Exam: absent: Scleral icterus - Neck Exam Neck Exam: Full ROM - Respiratory Exam Respiratory Exam: NORMAL BREATHING PATTERN - Cardiovascular Exam Cardiovascular Exam: REGULAR RHYTHM - GI/Abdominal Exam GI & Abdominal Exam: Soft - Extremities Exam Extremities Exam: Full ROM, Tenderness. absent: Calf Tenderness, Pedal Edema - Neurological Exam Neurological Exam: Alert, Oriented x3 Assessment and Plan - Assessment and Plan (Free Text) Assessment: Syncope CAD Carotid artery disease BPH Plan: Case discussed w/ Dr Mcgee - will get Vascular surgeon to eval patient prior to intervention Cont meds
[2016-09-14 08:30] VITALS: TEMP 98.2
--- NOTE | 2016-09-14 08:31 | CP.PCM.PN ---
Subjective - Date & Time of Evaluation Date of Evaluation: 09/13/16 Time of Evaluation: 08:15 - Subjective Subjective: weak no further complaint no chest pain no syncope Objective - Vital Signs/Intake and Output Vital Signs (last 24 hours): Temp Pulse Resp BP Pulse Ox 98.0 F 100 H 20 93/58 L 99 09/14/16 00:12 09/14/16 00:12 09/14/16 00:12 09/14/16 00:12 09/14/16 00:12 Intake and Output: 09/14/16 09/14/16 06:59 18:59 Intake Total 300 Balance 300 - Medications Medications: Current Medications Amlodipine Besylate (Norvasc) 5 mg PO DAILY [facility] Last Admin: 09/13/16 09:09 Dose: 5 mg Clopidogrel Bisulfate (Plavix) 75 mg PO DAILY [facility] Last Admin: 09/13/16 09:09 Dose: 75 mg Rosuvastatin Calcium (Crestor) 5 mg PO HS [facility] Last Admin: 09/13/16 22:14 Dose: 5 mg Fluticasone/Salmeterol (Advair Diskus 250/50) 1 puff INH RQ12 [facility] Last Admin: 09/14/16 07:52 Dose: 1 puff - Labs Labs: 09/02/16 08:09 09/12/16 07:56 PT 12.8 SECONDS (9.7-12.2) H 08/30/16 11:04 INR 1.1 08/30/16 11:04 APTT 34 SECONDS (21-34) 08/30/16 11:04 - Constitutional Appears: Non-toxic - Head Exam Additional comments: sutured laceration in thre right forehead - Eye Exam Eye Exam: absent: Scleral icterus - ENT Exam ENT Exam: Mucous Membranes Moist - Neck Exam Neck Exam: absent: Full ROM - Respiratory Exam Respiratory Exam: Decreased Breath Sounds - Cardiovascular Exam Cardiovascular Exam: REGULAR RHYTHM - GI/Abdominal Exam GI & Abdominal Exam: Soft. absent: Tenderness - Extremities Exam Extremities Exam: Pedal Edema. absent: Calf Tenderness - Neurological Exam Neurological Exam: Alert Assessment and Plan - Assessment and Plan (Free Text) Assessment: Syncope CAD CArotid artery disease Plan: Cont meds For possible endarterectomy
--- NOTE | 2016-09-14 08:44 | CP.PCM.PN ---
Subjective - Date & Time of Evaluation Date of Evaluation: 09/11/16 Time of Evaluation: 08:15 - Subjective Subjective: no post-cath complication no chest pain Objective - Vital Signs/Intake and Output Vital Signs (last 24 hours): Temp Pulse Resp BP Pulse Ox 98.2 F 85 20 101/62 100 09/14/16 07:00 09/14/16 07:05 09/14/16 07:00 09/14/16 07:00 09/14/16 07:00 Intake and Output: 09/14/16 09/14/16 06:59 18:59 Intake Total 300 Balance 300 - Medications Medications: Current Medications Amlodipine Besylate (Norvasc) 5 mg PO DAILY [facility] Last Admin: 09/13/16 09:09 Dose: 5 mg Clopidogrel Bisulfate (Plavix) 75 mg PO DAILY [facility] Last Admin: 09/13/16 09:09 Dose: 75 mg Rosuvastatin Calcium (Crestor) 5 mg PO HS [facility] Last Admin: 09/13/16 22:14 Dose: 5 mg Fluticasone/Salmeterol (Advair Diskus 250/50) 1 puff INH RQ12 [facility] Last Admin: 09/14/16 07:52 Dose: 1 puff - Labs Labs: 09/02/16 08:09 09/12/16 07:56 PT 12.8 SECONDS (9.7-12.2) H 08/30/16 11:04 INR 1.1 08/30/16 11:04 APTT 34 SECONDS (21-34) 08/30/16 11:04 - Constitutional Appears: Non-toxic - Neck Exam Neck Exam: Full ROM - Respiratory Exam Respiratory Exam: NORMAL BREATHING PATTERN - Cardiovascular Exam Cardiovascular Exam: REGULAR RHYTHM - GI/Abdominal Exam GI & Abdominal Exam: Soft - Extremities Exam Extremities Exam: absent: Pedal Edema Assessment and Plan - Assessment and Plan (Free Text) Assessment: CAD Carotid artery disease Syncope Plan: Dr Everardo del toro May need Vascular eval
--- NOTE | 2016-09-14 08:49 | CP.PCM.PN ---
Subjective - Date & Time of Evaluation Date of Evaluation: 09/14/16 Time of Evaluation: 08:46 - Subjective Subjective: +prostate ca on bx no chest pain no sob Objective - Vital Signs/Intake and Output Vital Signs (last 24 hours): Temp Pulse Resp BP Pulse Ox 98.2 F 85 20 101/62 100 09/14/16 07:00 09/14/16 07:05 09/14/16 07:00 09/14/16 07:00 09/14/16 07:00 Intake and Output: 09/14/16 09/14/16 06:59 18:59 Intake Total 300 Balance 300 - Medications Medications: Current Medications Amlodipine Besylate (Norvasc) 5 mg PO DAILY [facility] Last Admin: 09/13/16 09:09 Dose: 5 mg Clopidogrel Bisulfate (Plavix) 75 mg PO DAILY [facility] Last Admin: 09/13/16 09:09 Dose: 75 mg Rosuvastatin Calcium (Crestor) 5 mg PO HS [facility] Last Admin: 09/13/16 22:14 Dose: 5 mg Fluticasone/Salmeterol (Advair Diskus 250/50) 1 puff INH RQ12 [facility] Last Admin: 09/14/16 07:52 Dose: 1 puff - Labs Labs: 09/02/16 08:09 09/12/16 07:56 PT 12.8 SECONDS (9.7-12.2) H 08/30/16 11:04 INR 1.1 08/30/16 11:04 APTT 34 SECONDS (21-34) 08/30/16 11:04 - Constitutional Appears: Non-toxic - Eye Exam Eye Exam: absent: Scleral icterus - Neck Exam Neck Exam: Full ROM - Respiratory Exam Respiratory Exam: Decreased Breath Sounds - Cardiovascular Exam Cardiovascular Exam: REGULAR RHYTHM - Extremities Exam Extremities Exam: absent: Pedal Edema Assessment and Plan - Assessment and Plan (Free Text) Assessment: Prostate Ca CAD Carotid artery disease COPD Plan: If no surgical plan, ok for MIKE
--- NOTE | 2016-09-14 10:23 | CP.PCM.PN ---
Subjective - Date & Time of Evaluation Date of Evaluation: 09/14/16 Time of Evaluation: 10:21 - Subjective Subjective: Patient remains stable psych hartman and will be going to [facility] for MIKE today. MSE- elderly male, alert and oriented x 3, mood is calm. affect is reactive. speech is articulate. TP- coherent TC- no si or hi, no psychosis. Attention and memory fair. Insight and Judgment fair. Fair impulse control. Objective - Vital Signs/Intake and Output Vital Signs (last 24 hours): Temp Pulse Resp BP Pulse Ox 98.2 F 85 20 101/62 100 09/14/16 07:00 09/14/16 07:05 09/14/16 07:00 09/14/16 07:00 09/14/16 07:00 Intake and Output: 09/14/16 09/14/16 06:59 18:59 Intake Total 300 Balance 300 - Medications Medications: Current Medications Amlodipine Besylate (Norvasc) 5 mg PO DAILY [facility] Last Admin: 09/14/16 09:37 Dose: 5 mg Clopidogrel Bisulfate (Plavix) 75 mg PO DAILY [facility] Last Admin: 09/14/16 09:37 Dose: 75 mg Rosuvastatin Calcium (Crestor) 5 mg PO HS [facility] Last Admin: 09/13/16 22:14 Dose: 5 mg Fluticasone/Salmeterol (Advair Diskus 250/50) 1 puff INH RQ12 [facility] Last Admin: 09/14/16 07:52 Dose: 1 puff - Labs Labs: 09/02/16 08:09 09/12/16 07:56 PT 12.8 SECONDS (9.7-12.2) H 08/30/16 11:04 INR 1.1 08/30/16 11:04 APTT 34 SECONDS (21-34) 08/30/16 11:04 - Constitutional Appears: Well, No Acute Distress - Head Exam Head Exam: NORMOCEPHALIC - Eye Exam Pupil Exam: NORMAL ACCOMODATION - ENT Exam ENT Exam: Normal Exam - Neck Exam Neck Exam: Full ROM - Respiratory Exam Respiratory Exam: NORMAL BREATHING PATTERN - Cardiovascular Exam Additional comments: no chest pain - GI/Abdominal Exam Additional comments: eats well, no nausea - Extremities Exam Additional comments: no dysuria - Back Exam Additional comments: no pain - Psychiatric Exam Psychiatric exam: Normal Affect, Normal Mood - Skin Skin Exam: Normal Color Assessment and Plan - Assessment and Plan (Free Text) Assessment: Delirium- resolved Syncope UYI, HTN, Plan: Patient psych hartman to go to [facility] once cleared.
--- NOTE | 2016-09-14 12:05 | CARD ---
APPROVED REPORT Protocol: LEXISCAN Test Type: LEXISCAN STRESS Test Indications: SYNCOPE Target HR: 138 bpm Resting ECG: NSR W/ FREQUENT APB'S Resting Heart Rate: 98 bpm Resting Blood Pressure: 132/80mmHg submaximum (85%): 117 bpm TEST SUMMARY PREINFSNHYPERV.00:[id number]/80.1. INFUSIONDOSE 100:[id number]/80.0. [id number]:190.00.01.0.132/80.0. PROCEDURE Pharmacologic stress testing was performed using 0.4mg per 5ml of regadenoson given intravenously over 7-10 seconds. Reversal agent aminophyline 100 mg, given intravenously for Headache. POST EXERCISE Reason for Termination: Protocol Completed Target HR: No Max HR: 98 bpm 80% of Maximum Predicted HR: 138 bpm Exercise duration: 00:30 min:sec, 0 Stage Exercise capacity: 1.0METs Max Blood Pressure: 132/80mmHg Blood Pressure response to exercise: normal resting BP - appropriate response Heart Rate response to exercise: appropriate Chest Pain: No, none Angina index: 0 Arrhythmia: Yes, atrial premature beats ST Change: No, none Deviation: 0 mm INTERPRETATION Stress EKG Conclusion: NORMAL LEXISCAN STRESS TEST NORMAL BP RESPONSE TO LEXISCAN NUCLEAR STUDIES TO BE READ SEPARATELY EXAM: Myocardial Perfusion STRESS/REST Imaging Protocol The imaging protocol used to acquire images was Stress Tc-99m/rest Tc-99m 1 day Rest Spect myocardial perfusion imaging was performed in supine position 45 minutes following the injection of 32.2 mCi of Tc-99 Myoview. Gated Stress Spect was performed 45 minutes after intravenous 12.5 mCi Tc-99 Myoview injection. The images were gated to evaluate regional wall motion and calculate ventricular ejection fraction.Images were reconstructed using backfilter projection method in short horizontal and verticle long axis. Spect slices were generated. RESTING DATA EDV58.74qrOG8.00L/min ESV10.00mlMyocardial Bead391.00g Av. Heart Rate85.00bpm EF83.00% STRESS DATA EDV38.94fvSA6.00L/min ESV7.00mlMyocardial Mass76.00g EF82.00% Regional WT score at stress:2.00 Regional WM score at stress:0.00 Summed WT score at stress:5.00 Av. Heart Rate95.00bpmSummed WM score at stress:1.00 LV Perf. Quant 17 Seg. SSS7.00 17 Seg. SRS10.00 17 Seg. SDS0.00 Stress Defect Extent (% LAD)9.40Rest Defect Extent (% LAD)22.50Rev. Defect Extent (% LAD)0.00 Stress Defect Extent (% LCX)16.30Rest Defect Extent (% LCX)11.30Rev. Defect Extent (% LCX)0.00 Stress Defect Extent (% RCA)3.30Rest Defect Extent (% RCA)2.20Rev. Defect Extent (% RCA)0.00 Stress Defect Extent (% ARNOLDO)12.20Rest Defect Extent (% ARNOLDO)16.10Rev. Defect Extent (% ARNOLDO)0.00 IMPRESSION Abnormal Myocardial Perfusion exercise stress study Left Ventricle LV Size/Shape: The left ventricle is normal size. LV Thickness: There is normal left ventricular wall thickness. LV Function:Left ventricle systolic function is normal. The Ejection Fraction is >70%. Regional Wall Motion:There is normal left ventricular wall motion. Metabolism/Perfusion Defects: There is scan evidence of reversible ischemia noted in the infero-septal wall. Conclusion 1. There is scan evidence of reversible ischemia noted in the infero-septal wall. 2. Left ventricle systolic function is normal. 3. The Ejection Fraction is >70%.
[2016-09-14 16:05] VITALS: BP 102/50; PULSE 96; O2SAT 99
== END 2016-09-14 16:55 | DRG 643 ==
LOC: C.ER 09:54 → C.5T 16:01 → C.9E 18:11 → C.6T 22:27
PROVIDERS: ADMIT Internal Medicine; ATTEND Internal Medicine
PROC: 0HQ1XZZ Repair Face Skin, External Approach (ICD-10-PCS; 2016-08-30)
PROC: 0VB07ZX Excision of Prostate, Via Natural or Artificial Opening, Diagnostic (ICD-10-PCS; 2016-09-06)
PROC: BV49ZZZ Ultrasonography of Prostate and Seminal Vesicles (ICD-10-PCS; 2016-09-06)
PROC: 4A02XFZ Measurement of Cardiac Rhythm, External Approach (ICD-10-PCS; 2016-09-08)
PROC: 4A03XB1 Measurement of Arterial Pressure, Peripheral, External Approach (ICD-10-PCS; 2016-09-08)
PROC: 4A023N7 Measurement of Cardiac Sampling and Pressure, Left Heart, Percutaneous Approach (ICD-10-PCS; principal; 2016-09-10)
PROC: B2151ZZ Fluoroscopy of Left Heart using Low Osmolar Contrast (ICD-10-PCS; 2016-09-10)
PROC: B2111ZZ Fluoroscopy of Multiple Coronary Arteries using Low Osmolar Contrast (ICD-10-PCS; 2016-09-10)
DX: E22.2 Syndrome of inappropriate secretion of antidiuretic hormone (principal); G93.41 Metabolic encephalopathy; N39.0 Urinary tract infection, site not specified; F03.90 Unspecified dementia, unspecified severity, without behavioral disturbance, psychotic disturbance, mood disturbance, and anxiety; E86.0 Dehydration; J44.9 Chronic obstructive pulmonary disease, unspecified; I65.29 Occlusion and stenosis of unspecified carotid artery; C61 Malignant neoplasm of prostate; I10 Essential (primary) hypertension; I25.10 Atherosclerotic heart disease of native coronary artery without angina pectoris; S01.81XA Laceration without foreign body of other part of head, initial encounter; F39 Unspecified mood [affective] disorder; F17.210 Nicotine dependence, cigarettes, uncomplicated; W19.XXXA Unspecified fall, initial encounter; Y92.009 Unspecified place in unspecified non-institutional (private) residence as the place of occurrence of the external cause; Z86.73 Personal history of transient ischemic attack (TIA), and cerebral infarction without residual deficits; Z87.440 Personal history of urinary (tract) infections

== ENCOUNTER 2016-11-20 11:50 | Inpatient (IN) | payer MEDICARE ==
[2016-11-20 11:56] VITALS: BMI 22.3
--- NOTE | 2016-11-20 12:13 | C.PDOC ---
History Of Present Illness <Nehal Schultz - Last Filed: 11/20/16 11:58> <Juan Centeno - Last Filed: 11/20/16 16:20> A 81 year old male, whose past medical history includes hypertension, hyponatremia, etoh abuse, reoccurring falls, and COPD, presents to the emergency department brought in by EMS for left hip pain from a fall, which occurred last night. The patient denies any head trauma, LOC, chest pain, shortness of breath, abdominal pain, or any other complaints at this time. He does admit to drinking beer yesterday, but he denies any etoh intake today. ( Juan Centeno) <Nehal Schultz - Last Filed: 11/20/16 11:58> History Per: Patient History/Exam Limitations: no limitations Onset/Duration Of Symptoms: Days (x 1 day ) Current Symptoms Are (Timing): Still Present Severity: Mild - Hip Description Of Injury: Fell <Juan Centeno - Last Filed: 11/20/16 16:20> Chief Complaint (Nursing): Hip Pain Past Medical History - Medical History PMH: COPD, HTN - Social History Hx Tobacco Use: No Hx Alcohol Use: No Hx Substance Use: No - Immunization History Hx Tetanus Toxoid Vaccination: No Hx Influenza Vaccination: Yes Hx Pneumococcal Vaccination: No <Nehal Schultz - Last Filed: 11/20/16 11:58> Reviewed: Historical Data, Nursing Documentation, Vital Signs Family History: States: No Known Family Hx <Juan Centeno - Last Filed: 11/20/16 16:20> Vital Signs: Last Vital Signs Temp 97.4 F L 11/20/16 13:17 Pulse 92 H 11/20/16 14:49 Resp 16 11/20/16 14:49 BP 116/53 L 11/20/16 14:49 Pulse Ox 99 11/20/16 14:49 - [facility] Procedures CLOSURE SKIN & SUBCUTANEOUS NEC (11/16/12) EXCISION OF PROSTATE, VIA OPENING, DIAGN (08/30/16) FLUOROSCOPY OF LEFT HEART USING LOW OSMOLAR CONTRAST (08/30/16) FLUOROSCOPY OF MULT COR ART USING L OSM CONTRAST (08/30/16) MEASURE OF ARTERIAL PRESSURE, PERIPHERAL, MOTEL MANAGER APPROACH (08/30/16) MEASURE OF CARDIAC SAMPL & PRESSURE, L HEART, PERC APPROACH (08/30/16) MEASUREMENT OF CARDIAC RHYTHM, EXTERNAL APPROACH (08/30/16) REPAIR FACE SKIN, EXTERNAL APPROACH (08/30/16) ULTRASONOGRAPHY OF PROSTATE AND SEMINAL VESICLES (08/30/16) Review Of Systems Except As Marked, All Systems Reviewed And Found Negative. Cardiovascular: Negative for: Chest Pain Respiratory: Negative for: Shortness of Breath Gastrointestinal: Negative for: Abdominal Pain Musculoskeletal: Positive for: Other (left hip pain ) <Juan Centeno - Last Filed: 11/20/16 16:20> Physical Exam - Physical Exam Appears: Well, Non-toxic, No Acute Distress Skin: Normal Color, Warm, Dry Head: Atraumatic, Normacephalic Eye(s): bilateral: Normal Inspection, PERRL, EOMI Nose: Normal Throat: Normal Neck: Normal Cardiovascular: Rhythm Regular Respiratory: Normal Breath Sounds Gastrointestinal/Abdominal: Normal Exam Rectal: Hemorrhoids (internal hemorrhoid 12 o'clock position), Other (light brown stool ) Back: Normal Inspection Extremity: Normal ROM, Tenderness (left hip tenderness ), No Pedal Edema, No Calf Tenderness, No Capillary Refill, Deformity (Left leg shorter than the right leg ), No Swelling Neurological/Psych: Oriented x3, Normal Speech, Normal Cognition, Normal Cranial Nerves <Juan Centeno - Last Filed: 11/20/16 16:20> ED Course And Treatment - Laboratory Results Result Diagrams: 11/20/16 12:27 11/20/16 12:27 Lab Interpretation: Abnormal (hyponatremia with h/o hyponatremia, anemia) ECG: Interpreted By Nd ECG Rhythm: Sinus Rhythm ECG Interpretation: Normal O2 Sat by Pulse Oximetry: 99 Pulse Ox Interpretation: Normal - Radiology CXR: Interpreted by Me CXR Interpretation: Yes: Other (+ pleural based plaques, ? asbestosis) - Other Rad L hip/pelvis X-Ray: Interpreted by Me (+ intertrochanteric fx, no pelvic fx) head CT X-Ray: Interpreted by Me, Read By Radiologist (neg) Progress Note: MALAIKA harrison Reevaluation Time: 13:49 Reassessment Condition: Improved <Juan Centeno - Last Filed: 11/20/16 16:20> Medical Decision Making <Nehal Schultz - Last Filed: 11/20/16 11:58> <Juan Centeno - Last Filed: 11/20/16 16:20> Medical Decision Making: Treatment Plan: -- EKG -- Drug Screen -- Hydromorphone, IV Fluids -- Saline Lock -- Admit to hospital -- Urinalysis Progress Notes: recurrent fall, now with L hip intertrochanteric fx ? Hyponatremia related, h/o same. begin gentle hydration head CT neg, prob not NPHydrocephalus 1330: d/w Dr. Coburn- ok to Adm to Dr. Rollins, he agrees 1345: d/w Dr. Okeefe, Ortho Dealer Accounts Investigator- ok to Consult. anemia: new low HGB 7 from baseline 10 and 9 in past 4 months, may be acute Rectal Exam: Occult Stool Blood: T/S done, consider blood transfusions prior to surgery Known alcohol abuse, current ETOH neg today consider CIWA protocol if becomes symptomatic from ETOH w/d (Juan Centeno) Disposition <Nehal Schultz - Last Filed: 11/20/16 11:58> Doctor Will See Patient In The: Hospital Counseled Patient/Family Regarding: Studies Performed, Diagnosis - Disposition Disposition Time: 13:51 <Juan Centeno - Last Filed: 11/20/16 16:20> - Disposition Disposition: HOSPITALIZED Condition: GOOD - Clinical Impression Clinical Impression: Hyponatremia, Hip fracture, Anemia <Nehal Schultz - Last Filed: 11/20/16 11:58> - Scribe Statement The provider has reviewed the documentation as recorded by the Scribe <Juan Centeno - Last Filed: 11/20/16 16:20> - Scribe Statement [facility] All medical record entries made by the Scribe were at my direction and personally dictated by me. I have reviewed the chart and agree that the record accurately reflects my personal performance of the history, physical exam, medical decision making, and the department course for this patient. I have also personally directed, reviewed, and agree with the discharge instructions and disposition. (Juan Centeno)
[2016-11-20] MEDS ORDERED: HYDROmorphone 0.5 mg/0.5 ml ISec IVP STA (12:18)
[2016-11-20 12:32] LABS: BASO % 0.3 % (0.0-2.0); HEMATOCRIT 21.6 % (35.0-51.0); LYMPH # 0.8 K/uL (1.0-4.3); LYMPH % 17.1 % (20.0-40.0); MEAN CORPUSCULAR HEMOGLOBIN 23.9 pg (27.0-31.0); MEAN CORPUSCULAR HGB CONC 32.3 g/dL (33.0-37.0); MEAN PLATELET VOLUME 7.3 fL (7.2-11.7); MONO # 0.5 K/uL (0.0-0.8); MONO % 10.9 % (0.0-10.0); RED CELL DISTRIBUTION WIDTH 17.5 % (11.5-14.5); WHITE BLOOD COUNT 4.9 K/uL (4.8-10.8)
[2016-11-20 12:46] LABS: CHLORIDE 96 mmol/L (98-107); POTASSIUM 4.2 mmol/L (3.6-5.2); SODIUM 125 mmol/L (132-148)
[2016-11-20 12:48] LABS: ALKALINE PHOSPHATASE 58 U/L (38-126); AST/SGOT 26 U/L (17-59); BILIRUBIN,TOTAL 1.2 mg/dL (0.2-1.3); CARBON DIOXIDE 18 mmol/L (22-30); GFR AFRICAN-AMERICAN > 60
[2016-11-20 12:49] LABS: ALT/SGPT 21 U/L (21-72); BLOOD UREA NITROGEN 18 mg/dL (9-20); CALCIUM 7.7 mg/dl (8.6-10.4); GLUCOSE,RANDOM 107 mg/dL (75-110)
[2016-11-20 12:50] LABS: ALCOHOL SERUM < 10 mg/dl (0-10)
--- NOTE | 2016-11-20 12:55 | RAD ---
PROCEDURE: Left Hip X-ray Radiographs. HISTORY: Fall from standing yesterday COMPARISON: None. FINDINGS: BONES: there is acute comminuted and displaced fracture at the left intertrochanteric femur. There is displacement of the lesser trochanteric process. There is superior displacement of the left femoral shaft relative to the femoral head and neck. . JOINTS: Bujz-du-tiguwusb osteoarthritic changes. SOFT TISSUES: Normal. OTHER FINDINGS: None. IMPRESSION: Acute comminuted and displaced left femoral intertrochanteric fracture.
--- NOTE | 2016-11-20 12:56 | RAD ---
PROCEDURE: CHEST RADIOGRAPH, 1 VIEW HISTORY: SOB COMPARISON: Comparison is made to 08/30/2016 FINDINGS: LUNGS: No significant interval change in the lungs noted since the previous exam. Again seen are patchy foci of calcification in the chest may represent calcified pleural plaques. PLEURA: No pneumothorax or pleural fluid seen. CARDIOVASCULAR: Normal. OSSEOUS STRUCTURES: No significant abnormalities. VISUALIZED UPPER ABDOMEN: Normal. OTHER FINDINGS: Diffuse osteopenia seen. IMPRESSION: No evidence of acute pulmonary disease. No significant interval change.
--- NOTE | 2016-11-20 13:03 | CT ---
PROCEDURE: CT HEAD WITHOUT CONTRAST. HISTORY: elderly, fall, h/o hyponatremia, ? hydro vs trauma COMPARISON: Comparison is made to 08/30/2016 TECHNIQUE: Axial computed tomography images were obtained through the head/brain without intravenous contrast. Radiation dose: Total exam DLP = 963.95 mGy-cm. This CT exam was performed using one or more of the following dose reduction techniques: Automated exposure control, adjustment of the mA and/or kV according to patient size, and/or use of iterative reconstruction technique. FINDINGS: HEMORRHAGE: No intracranial hemorrhage. BRAIN: No mass effect or edema. Moderate atrophy and dixw-yj-womjiojt white matter chronic microvascular ischemic disease are again noted. VENTRICLES: Unremarkable. No hydrocephalus. CALVARIUM: No evidence of acute fracture or destructive bony lesion. PARANASAL SINUSES: Re- demonstration of mucosal retention cyst versus polyp at the right maxillary sinus. MASTOID AIR CELLS: Unremarkable as visualized. No inflammatory changes. OTHER FINDINGS: Again seen is subcutaneous lipoma at the right occipital/posterior scalp. IMPRESSION: No evidence of acute intracranial hemorrhage mass effect or midline shift. Moderate atrophy and cyke-tt-gglcjbox chronic microvascular white matter ischemic disease.
[2016-11-20] MEDS ORDERED: Sodium Chloride 0.9% 1,000 ML IV ONE (13:55)
[2016-11-20 15:05] LABS: INR 1.2
--- NOTE | 2016-11-20 16:28 | C.PDOC ---
History Of Present Illness A 81 year old male, whose past medical history includes hypertension, hyponatremia, etoh abuse, reoccurring falls, and COPD, presents to the emergency department brought in by EMS for left hip pain from a fall, which occurred last night. The patient denies any head trauma, LOC, chest pain, shortness of breath, abdominal pain, or any other complaints at this time. He does admit to drinking beer yesterday, but he denies any etoh intake today. Time Seen by Provider: 11/20/16 12:10 Chief Complaint (Nursing): Hip Pain History Per: Patient History/Exam Limitations: no limitations Onset/Duration Of Symptoms: Days (x yesterday) Current Symptoms Are (Timing): Still Present Past Medical History Vital Signs: Last Vital Signs Temp 97.4 F L 11/20/16 13:17 Pulse 92 H 11/20/16 14:49 Resp 16 11/20/16 14:49 BP 116/53 L 11/20/16 14:49 Pulse Ox 99 11/20/16 16:45 - Medical History PMH: COPD, HTN - [facility] Procedures CLOSURE SKIN & SUBCUTANEOUS NEC (11/16/12) EXCISION OF PROSTATE, VIA OPENING, DIAGN (08/30/16) FLUOROSCOPY OF LEFT HEART USING LOW OSMOLAR CONTRAST (08/30/16) FLUOROSCOPY OF MULT COR ART USING L OSM CONTRAST (08/30/16) MEASURE OF ARTERIAL PRESSURE, PERIPHERAL, FLIGHT ENGINEER HELICOPTER APPROACH (08/30/16) MEASURE OF CARDIAC SAMPL & PRESSURE, L HEART, PERC APPROACH (08/30/16) MEASUREMENT OF CARDIAC RHYTHM, EXTERNAL APPROACH (08/30/16) REPAIR FACE SKIN, EXTERNAL APPROACH (08/30/16) ULTRASONOGRAPHY OF PROSTATE AND SEMINAL VESICLES (08/30/16) Family History: States: No Known Family Hx - Social History Hx Tobacco Use: No Hx Alcohol Use: No Hx Substance Use: No - Immunization History Hx Tetanus Toxoid Vaccination: No Hx Influenza Vaccination: Yes Hx Pneumococcal Vaccination: No Review Of Systems Except As Marked, All Systems Reviewed And Found Negative. Constitutional: Negative for: Fever Cardiovascular: Negative for: Chest Pain Respiratory: Negative for: Shortness of Breath Gastrointestinal: Negative for: Abdominal Pain Musculoskeletal: Positive for: Other (left hip pain ) Physical Exam - Physical Exam Appears: Well, Non-toxic, No Acute Distress Skin: Normal Color, Warm, Dry Head: Atraumatic, Normacephalic Eye(s): bilateral: Normal Inspection, PERRL, EOMI Nose: Normal Throat: Normal Neck: Normal, Normal ROM, No Decreased ROM, No Trachea Midline, No Trachea Deviated, No Midline Cervical Tenderness, No Paracervical Tenderness, No Step Off Deformity Chest: No Deformity, No Tenderness Cardiovascular: Rhythm Regular, No Rhythm Irregular, No Edema, No Murmur, No JVD Respiratory: Normal Breath Sounds, No Decreased Breath Sounds, No Accessory Muscle Use, No Rales, No Rhonchi Gastrointestinal/Abdominal: Normal Exam Rectal: Hemorrhoids (internal hemorhoid 12 o'clock ), Other (light brown stool ) Back: Normal Inspection, No CVA Tenderness, No Vertebral Tenderness, No Decreased ROM, No Muscle Spasm, No Paraspinal Tenderness Male Genital: Normal Inspection Extremity: Normal ROM, Tenderness (left hip ), Deformity (left leg is shorter than right leg ) Neurological/Psych: Oriented x3, Normal Speech, Normal Cognition, Normal Cranial Nerves ED Course And Treatment - Laboratory Results Result Diagrams: 11/20/16 12:27 11/20/16 12:27 Lab Interpretation: Abnormal ECG: Interpreted By Me ECG Rhythm: Sinus Rhythm ECG Interpretation: Normal Rate From EC O2 Sat by Pulse Oximetry: 99 Pulse Ox Interpretation: Normal - Radiology CXR: Interpreted by Me CXR Interpretation: Yes: No Acute Disease - Other Rad L hip/pelvis X-Ray: Interpreted by Me (+ L hip intertrochanteric fx with displacement, no pelvic fx), Read By Radiologist head CT X-Ray: Read By Radiologist (neg) Progress Note: dilaudid IV, gentle hydration Reevaluation Time: 14:00 Reassessment Condition: Improved - Physician Consult Information Outcome Of Conversation: 1330: d/w Dr. Gustafson, recommends adm to Dr. Rollins- as in prior adm. 1330: d/w Dr. Rollins, ok to adm. 1330: d/w Dr. Okeefe- Ortho Lending Manager- ok to Consult Medical Decision Making Medical Decision Making: Treatment Plan: -- EKG -- Drug Screen -- Hydromorphone, IV Fluids -- Saline Lock -- Admit to hospital -- Urinalysis Progress Notes: L hip fx, intertrochanteric, likely from fall last night, no pelvic or head injury Anemia, HGB 7 is a significant drop from prior baseline hgb 12/15 Guaiac neg on occult stool exam rectal exam + internal hemorroids Consider transfusions/colonoscopy prior to surgery Hyponatremia h/o same gentle hydration started ? etiology Alcohol abuse last drink last night? related to fall consider CIWA protocol as indicated. Disposition Doctor Will See Patient In The: Hospital Counseled Patient/Family Regarding: Studies Performed, Diagnosis - Disposition Disposition: HOSPITALIZED Disposition Time: 14:00 Condition: GOOD - Clinical Impression Clinical Impression: Hyponatremia, Hip fracture, Anemia, Alcohol abuse - Scribe Statement The provider has reviewed the documentation as recorded by the Scribe Ca [facility] All medical record entries made by the Dottyibdorian were at my direction and personally dictated by me. I have reviewed the chart and agree that the record accurately reflects my personal performance of the history, physical exam, medical decision making, and the department course for this patient. I have also personally directed, reviewed, and agree with the discharge instructions and disposition.
[2016-11-20] MEDS ORDERED: Sodium Chloride 0.9% 1,000 ML IV SCH (19:30)
[2016-11-20] MEDS ORDERED: Sodium Chloride 0.9% 1,000 ML ONE (20:02)
--- NOTE | 2016-11-20 22:55 | CP.PCM.HP ---
History of Present Illness - History of Present Illness History of Present Illness: CC: Fall , left Hip pain HPI: A 81 year old male who is chronic heavy smoker and he drinks alot, weak , underweight, malnousrished, whose past medical history includes hypertension, hyponatremia, etoh abuse, reoccurring falls, and COPD, presents to the emergency department brought in by EMS for left hip pain from a fall, which occurred last night. The patient denies any head trauma, LOC, chest pain, shortness of breath, abdominal pain, or any other complaints at this time. He does admit to drinking beer yesterday, but he denies any etoh intake today. Present on Admission - Present on Admission Any Indicators Present on Admission: No Review of Systems - Review of Systems Systems not reviewed;Unavailable: Acuity of Condition, Respiratory Distress - Constitutional Constitutional: Fatigue, Lethargy - EENT Eyes: absent: As Per HPI, Blind Spots, Blurred Vision, Change in Vision, Decreased Night Vision, Diplopia, Discharge, Dry Eye, Exophthalmos, Floaters, Irritation, Itchy Eyes, Loss of Peripheral Vision, Pain, Photophobia, Requires Corrective Lenses, Sees Flashes, Spots in Vision, Tunnel Vision, Other Visual Disturbances, Loss of Vision, Other Nose/Mouth/Throat: absent: As Per HPI, Epistaxis, Nasal Congestion, Nasal Discharge, Nasal Obstruction, Nasal Trauma, Nose Pain, Post Nasal Drip, Sinus Pain, Sinus Pressure, Bleeding Gums, Change in Voice, Dental Pain, Dry Mouth, Dysphagia, Halitosis, Hoarsness, Lip Swelling, Mouth Lesions, Mouth Pain, Odynophagia, Sore Throat, Throat Swelling, Tongue Swelling, Facial Pain, Neck Pain, Neck Mass, Other - Cardiovascular Cardiovascular: Irregular Heart Rhythm - Respiratory Respiratory: Cough. absent: As Per HPI, Dyspnea, Hemoptysis, Dyspnea on Exertion, Wheezing, Snoring, Stridor, Pain on Inspiration, Chest Congestion, Excessive Mucous Production, Change in Mucous Color, Pain with Coughing, Other - Gastrointestinal Gastrointestinal: absent: As Per HPI, Abdominal Pain, Belching, Bloating, Change in Bowel Habits, Change in Stool Character, Coffee Ground Emesis, Constipation, Cramping, Diarrhea, Dyspepsia, Dysphagia, Early Satiety, Excessive Flatus, Fecal Incontinence, Heartburn, Hematemesis, Hematochezia, Loose Stools, Melena, Nausea, Odynophagia, Temesmus, Vomiting, Other - Genitourinary Genitourinary: absent: As Per HPI, Change in Urinary Stream, Difficulty Urinating, Dysuria, Flank Pain, Hematuria, Pyuria, Nocturia, Urinary Incontinence, Urinary Frequency, Urinary Hesitance, Urinary Urgency, Voiding Freq/Small Amts, Freq UTI, Hx Renal/Bladder Calculi, Hx /Renal Surgery, Bladder Distension, Other - Musculoskeletal Musculoskeletal: Abnormal Gait, Joint Swelling, Limited Range of Motion, Myalgias - Integumentary Integumentary: absent: As Per HPI, Acne, Alopecia, Bleeding Lesions, Change in Hair, Change in Nails, Change in Pigmentation, Changing Lesions, Dry Skin, Erythema, Furuncle, Hirsutism, Lesions, New Lesions, Non-Healing Lesions, Photosensitivity, Pruritus, Rash, Skin Pain, Skin Ulcer, Sores, Striae, Swelling , Unusual Bruising, Wounds, Jaundice, Other - Neurological Neurological: Abnormal Gait, Disequilibrium, Dizziness, Tingling, Weakness - Psychiatric Psychiatric: absent: As Per HPI, Abnormal Sleep Pattern, Anhedonia, Anxiety, Auditory Hallucinations, Behavioral Changes, Change in Appetite, Change in Libido, Confusion, Depression, Difficulty Concentrating, Hallucinations, Homicidal Ideation, Hopelessness, Irritability, Memory Loss, Mood Swings, Panic Attacks, Paranoia, Suicidal Ideation, Visual Hallucinations, Tactile Hallucinations, Other Past Patient History - Infectious Disease Hx of Infectious Diseases: None - Past Medical History & Family History Past Medical History?: No - Past Social History Smoking Status: Light Smoker < 10 Cigarettes Daily - CARDIAC Hx Hypertension: Yes - PULMONARY Hx Chronic Obstructive Pulmonary Disease (COPD): Yes - NEUROLOGICAL HX Cerebrovascular Accident: Yes (7 YEARS AGO) - MUSCULOSKELETAL/RHEUMATOLOGICAL Hx Falls: Yes - PSYCHIATRIC Hx Substance Use: No - SURGICAL HISTORY Hx Surgeries: No - ANESTHESIA Hx Anesthesia: No Meds Allergies/Adverse Reactions: Allergies Allergy/AdvReac Type Severity Reaction Status Date / Time No Known Allergies Allergy Verified 08/30/16 10:34 Physical Exam - Constitutional Appears: No Acute Distress, Chronically Ill Additional comments: elderly male looks emaciated, weak - Eye Exam Eye Exam: EOMI, Normal appearance, PERRL Pupil Exam: NORMAL ACCOMODATION, PERRL - Respiratory Exam Respiratory Exam: Clear to Auscultation Bilateral, NORMAL BREATHING PATTERN - Cardiovascular Exam Cardiovascular Exam: REGULAR RHYTHM - GI/Abdominal Exam GI & Abdominal Exam: Normal Bowel Sounds, Soft. absent: Tenderness - Rectal Exam Rectal Exam: Deferred - Neurological Exam Neurological exam: Alert, CN II-XII Intact, Normal Gait, Oriented x3, Reflexes Normal - Psychiatric Exam Psychiatric exam: Anxious - Skin Skin Exam: Dry, Intact, Normal Color, Warm Results - Vital Signs Recent Vital Signs: Last Vital Signs Temp 97.9 F 11/20/16 22:37 Pulse 97 H 11/20/16 22:37 Resp 20 11/20/16 22:37 BP 110/57 L 11/20/16 22:37 Pulse Ox 100 11/20/16 22:37 - Labs Result Diagrams: 11/25/16 06:16 11/25/16 06:16 Labs: Laboratory Results - last 24 hr 11/20/16 11/20/16 11/20/16 14:52 14:52 15:57 PT 13.4 H INR 1.2 Total Creatine Kinase CK-MB (Mass) Troponin I, Quant Stool Occult Blood Negative Blood Type O POSITIVE Antibody Screen Negative 11/20/16 19:38 PT INR Total Creatine Kinase 172 H CK-MB (Mass) 1.02 Troponin I, Quant < 0.0120 Stool Occult Blood Blood Type Antibody Screen Assessment & Plan (1) Fall Status: Acute (2) Alcohol abuse Status: Acute (3) Anemia Status: Acute (4) Hip fracture Status: Acute
[2016-11-21] MEDS: Fluticasone-Salmeterol 250-50mcg Diskus INH SCH (07:58)
[2016-11-21] MEDS: Pantoprazole 40 mg EC Tab PO SCH (10:39)
[2016-11-21] MEDS: Enoxaparin 40 mg Syringe SC SCH (10:39)
[2016-11-21 14:12] LABS: HEMATOCRIT 27.3 % (35.0-51.0); MEAN CORPUSCULAR HEMOGLOBIN 25.5 pg (27.0-31.0); MEAN CORPUSCULAR HGB CONC 32.7 g/dL (33.0-37.0); MEAN PLATELET VOLUME 7.3 fL (7.2-11.7); RED CELL DISTRIBUTION WIDTH 17.9 % (11.5-14.5); WHITE BLOOD COUNT 6.1 K/uL (4.8-10.8)
[2016-11-21 14:17] LABS: MEAN CELL VOLUME 77.8 fL (80.0-94.0)
[2016-11-21 14:20] LABS: BLOOD UREA NITROGEN 20 mg/dL (9-20); CALCIUM 7.9 mg/dl (8.6-10.4); CARBON DIOXIDE 22 mmol/L (22-30); CHLORIDE 97 mmol/L (98-107); GFR AFRICAN-AMERICAN > 60; GLUCOSE,RANDOM 109 mg/dL (75-110); POTASSIUM 3.9 mmol/L (3.6-5.2); SODIUM 128 mmol/L (132-148)
[2016-11-21] MEDS ORDERED: Sodium Chloride 0.9% 1,000 ML IV SCH (18:30)
--- NOTE | 2016-11-21 18:39 | CP.PCM.CON ---
History of Present Illness - History of Present Illness History of Present Illness: Reason for Consult: pre-op eval re: ORIF, left hip HPI: 81 y/o white male known to me from previous admission admitted for fx of left hip due to recent fall. Pt is scheduled for ORIF, left hip. Pt is on multiple antiplatelet due to severe Carotid artery disease and PVD and CAD. He is also anemic and will need blood transfusion prior to surgery. PMH is significant for severe Carotid artery disease, COPD, CAD, Chronic Etoh abuse. Review of Systems - Gastrointestinal Gastrointestinal: absent: Abdominal Pain - Musculoskeletal Musculoskeletal: Abnormal Gait Past Patient History - Infectious Disease Hx of Infectious Diseases: None - Past Medical History & Family History Past Medical History?: No - Past Social History Smoking Status: Former Smoker - CARDIAC Hx Hypertension: Yes - PULMONARY Hx Chronic Obstructive Pulmonary Disease (COPD): Yes - NEUROLOGICAL HX Cerebrovascular Accident: Yes (7 YEARS AGO) - MUSCULOSKELETAL/RHEUMATOLOGICAL Hx Falls: Yes - PSYCHIATRIC Hx Substance Use: No - SURGICAL HISTORY Hx Surgeries: No - ANESTHESIA Hx Anesthesia: No Meds Allergies/Adverse Reactions: Allergies Allergy/AdvReac Type Severity Reaction Status Date / Time No Known Allergies Allergy Verified 08/30/16 10:34 - Medications Medications: Current Medications Clopidogrel Bisulfate (Plavix) 75 mg PO DAILY [facility] Last Admin: 11/21/16 10:39 Dose: 75 mg Enoxaparin Sodium (Lovenox) 40 mg SC DAILY [facility] Last Admin: 11/21/16 10:39 Dose: 40 mg Hydromorphone HCl (Dilaudid) 0.5 mg IVP Q4H PRN PRN Reason: Pain, moderate (4-7) Sodium Chloride (Sodium Chloride 0.9%) 1,000 mls @ 60 mls/hr IV .[id number] [facility] Pantoprazole Sodium (Protonix Ec Tab) 40 mg PO DAILY [facility] Last Admin: 11/21/16 10:39 Dose: 40 mg Pneumococcal Polyvalent Vaccine (Pneumovax 23 Vaccine) 0.5 ml IM .ONCE ONE Stop: 11/23/16 10:01 Rosuvastatin Calcium (Crestor) 5 mg PO HS [facility] Last Admin: 11/20/16 22:04 Dose: 5 mg Fluticasone/Salmeterol (Advair Diskus 250/50) 1 puff INH RQ12 [facility] Last Admin: 11/21/16 07:58 Dose: Not Given Physical Exam - Constitutional Appears: Non-toxic - Head Exam Head Exam: NORMAL INSPECTION - Eye Exam Eye Exam: absent: Scleral icterus - ENT Exam ENT Exam: Mucous Membranes Moist - Neck Exam Neck exam: Positive for: Full Rom Additional comments: +carotid bruit - Respiratory Exam Respiratory Exam: Decreased Breath Sounds, Clear to Auscultation Bilateral - Cardiovascular Exam Cardiovascular Exam: REGULAR RHYTHM - GI/Abdominal Exam GI & Abdominal Exam: Normal Bowel Sounds. absent: Soft - Extremities Exam Extremities exam: Negative for: calf tenderness, pedal edema - Neurological Exam Neurological exam: Alert, Oriented x3 Results - Vital Signs Recent Vital Signs: Last Vital Signs Temp 97.5 F L 11/21/16 15:00 Pulse 97 H 11/21/16 17:15 Resp 20 11/21/16 17:15 BP 98/59 L 11/21/16 17:15 Pulse Ox 20 L 11/21/16 15:00 - Labs Result Diagrams: 11/21/16 14:06 11/21/16 14:06 Labs: Laboratory Results - last 24 hr 11/20/16 11/20/16 11/21/16 14:52 19:38 14:06 WBC 6.1 RBC 3.51 L Hgb 8.9 L Hct 27.3 L MCV 77.8 L D MCH 25.5 L MCHC 32.7 L RDW 17.9 H Plt Count 276 MPV 7.3 Sodium Potassium Chloride Carbon Dioxide Anion Gap BUN Creatinine Est GFR ( Amer) Est GFR (Non-Af Amer) Random Glucose Calcium Total Creatine Kinase 172 H CK-MB (Mass) 1.02 Troponin I, Quant < 0.0120 Blood Type O POSITIVE Antibody Screen Negative 11/21/16 14:06 WBC RBC Hgb Hct MCV MCH MCHC RDW Plt Count MPV Sodium 128 L Potassium 3.9 Chloride 97 L Carbon Dioxide 22 Anion Gap 13 BUN 20 Creatinine 0.7 L Est GFR ( Amer) > 60 Est GFR (Non-Af Amer) > 60 Random Glucose 109 Calcium 7.9 L Total Creatine Kinase CK-MB (Mass) Troponin I, Quant Blood Type Antibody Screen Assessment & Plan - Assessment and Plan (Free Text) Assessment: Pt is high risk for surgery due to multiple co-morbid condition. Carotid artery disease CAD COPD PVD Plan: Pt may go for surgery with high risk if benefit of surgery outweighs the risk. DC all antiplatelet and anticoagulation for 4-5 days prior to surgery.
[2016-11-21 22:19] LABS: RBC URINE 11 /hpf (0-3); URINE BACTERIA RARE (<OCC); URINE BILIRUBIN NEGATIVE (NEGATIVE); URINE BLOOD 1+ (NEGATIVE); URINE COLOR Yellow (YELLOW); URINE GLUCOSE (UA) NORMAL (Normal); URINE KETONE TRACE mg/dL (NEGATIVE); URINE LEUKOCYTE ESTERASE NEG Leu/uL (Negative); URINE PROTEIN NEGATIVE (NEGATIVE); URINE UROBILINOGEN NORMAL mg/dL (0.2-1.0); WBC URINE 9 /hpf (0-5)
--- NOTE | 2016-11-21 22:34 | CP.PCM.PN ---
Subjective - Date & Time of Evaluation Date of Evaluation: 11/21/16 Time of Evaluation: 20:00 - Subjective Subjective: Pt seen and evalauted by Orthopedic surgery too, Pt is high risk for surgery due to multiple co-morbid condition. Carotid artery disease CAD COPD PVD Pt may go for surgery with high risk if benefit of surgery outweighs the risk. DC all antiplatelet and anticoagulation for 4-5 days prior to surgery. Objective - Vital Signs/Intake and Output Vital Signs (last 24 hours): Temp Pulse Resp BP Pulse Ox 97.5 F L 97 H 20 98/59 L 20 L 11/21/16 15:00 11/21/16 17:15 11/21/16 17:15 11/21/16 17:15 11/21/16 15:00 Intake and Output: 11/21/16 11/22/16 18:59 06:59 Intake Total 960 Output Total 150 Balance 810 - Medications Medications: Current Medications Clopidogrel Bisulfate (Plavix) 75 mg PO DAILY [facility] Last Admin: 11/21/16 10:39 Dose: 75 mg Enoxaparin Sodium (Lovenox) 40 mg SC DAILY [facility] Last Admin: 11/21/16 10:39 Dose: 40 mg Hydromorphone HCl (Dilaudid) 0.5 mg IVP Q4H PRN PRN Reason: Pain, moderate (4-7) Sodium Chloride (Sodium Chloride 0.9%) 1,000 mls @ 60 mls/hr IV .[id number] [facility] Last Admin: 11/21/16 19:00 Dose: 60 mls/hr Pantoprazole Sodium (Protonix Ec Tab) 40 mg PO DAILY [facility] Last Admin: 11/21/16 10:39 Dose: 40 mg Pneumococcal Polyvalent Vaccine (Pneumovax 23 Vaccine) 0.5 ml IM .ONCE ONE Stop: 11/23/16 10:01 Rosuvastatin Calcium (Crestor) 5 mg PO HS [facility] Last Admin: 11/20/16 22:04 Dose: 5 mg Fluticasone/Salmeterol (Advair Diskus 250/50) 1 puff INH RQ12 [facility] Last Admin: 11/21/16 07:58 Dose: Not Given - Labs Labs: 11/21/16 14:06 11/21/16 14:06 PT 13.4 SECONDS (9.7-12.2) H 11/20/16 14:52 INR 1.2 11/20/16 14:52 - Constitutional Appears: No Acute Distress, Chronically Ill - Head Exam Head Exam: ATRAUMATIC, NORMAL INSPECTION, NORMOCEPHALIC - Eye Exam Eye Exam: EOMI, Normal appearance, PERRL Pupil Exam: NORMAL ACCOMODATION, PERRL - Respiratory Exam Respiratory Exam: Clear to Ausculation Bilateral, NORMAL BREATHING PATTERN - Cardiovascular Exam Cardiovascular Exam: REGULAR RHYTHM, +S1, +S2. absent: Murmur - GI/Abdominal Exam GI & Abdominal Exam: Soft, Normal Bowel Sounds. absent: Tenderness - Rectal Exam Rectal Exam: Deferred - Neurological Exam Neurological Exam: Alert, Awake, CN II-XII Intact, Normal Gait, Oriented x3 - Psychiatric Exam Psychiatric exam: Anxious Assessment and Plan (1) Alcohol abuse Status: Acute (2) Anemia Status: Acute (3) Fall Status: Acute (4) Hip fracture Status: Acute
--- NOTE | 2016-11-21 22:56 | CON ---
DATE: 11/21/2016 CHIEF COMPLAINT: Left hip intratrochanteric fracture. HISTORY OF PRESENT ILLNESS: The patient is an 81-year-old male who had a mechanical fall landing on to his left hip. The patient has a history of hypernatronemia, anemia, and alcohol abuse. The patient had difficulty getting up. He was brought into the emergency room with x-rays had shown a displaced left hip intratrochanteric fracture, currently the patient is examined at bedside not in any acute distress. Denies pain in any of the extremity or joint. Denies any loss of consciousness. Denies any paresthesia or motor weakness. PAST MEDICAL HISTORY: Anemia, hyponatremia, alcohol abuse. PHYSICAL EXAMINATION EXTREMITIES: Left leg is short and externally rotated. Limited range of motion secondary to pain. Able to dorsiflexion, plantar flex, and extend his toes. Neurovascular intact distally. SKIN: The skin is intact. LABORATORY DATA: Imaging; x-rays of the patient's left hip show displaced intratrochanteric fracture. ASSESSMENT: An 81-year-old male with mechanical fall of left hip displaced intratrochanteric fracture. TREATMENT: I had a detailed discussion with the patient including his history, physical exam, and x-ray findings. Due to displaced nature of the fracture, I am recommending close versus open reduction and intramedullary nail fixation. I reviewed the risks and benefits of the surgery with the patient in detail, the risks included, but not limited to bleeding, infection, neurovascular damage, continued pain, malunion, nonunion, stiffness, iatrogenic fracture, blood clot, and even the patient fully understands the risks and benefits and would like to proceed. The patient will be followed with a medical team for medical optimization and we will continue to monitor his labs. The patient will likely need blood transfusion once he is medically stable, we will proceed with the surgery. Fabio Okeefe MD
[2016-11-22] MEDS: HYDROmorphone 0.5 mg/0.5 ml ISec IVP PRN (04:59)
[2016-11-22] MEDS: Fluticasone-Salmeterol 250-50mcg Diskus INH SCH ×2 (09:00→19:30)
[2016-11-22] MEDS: Pantoprazole 40 mg EC Tab PO SCH (10:25)
[2016-11-22] MEDS: Enoxaparin 40 mg Syringe SC SCH (10:25)
[2016-11-22 11:36] LABS: BASO % 0.2 % (0.0-2.0); HEMATOCRIT 25.4 % (35.0-51.0); LYMPH # 0.8 K/uL (1.0-4.3); LYMPH % 8.4 % (20.0-40.0); MEAN CELL VOLUME 77.4 fL (80.0-94.0); MEAN CORPUSCULAR HEMOGLOBIN 25.6 pg (27.0-31.0); MEAN CORPUSCULAR HGB CONC 33.1 g/dL (33.0-37.0); MEAN PLATELET VOLUME 7.4 fL (7.2-11.7); MONO # 0.6 K/uL (0.0-0.8); PLATELET COUNT 313 K/uL (130-400); RED CELL DISTRIBUTION WIDTH 17.9 % (11.5-14.5); WHITE BLOOD COUNT 9.2 K/uL (4.8-10.8)
[2016-11-22 11:51] LABS: BLOOD UREA NITROGEN 14 mg/dL (9-20); CALCIUM 7.8 mg/dl (8.6-10.4); CARBON DIOXIDE 21 mmol/L (22-30); CHLORIDE 98 mmol/L (98-107); GFR AFRICAN-AMERICAN > 60; GLUCOSE,RANDOM 90 mg/dL (75-110); POTASSIUM 3.1 mmol/L (3.6-5.2); SODIUM 129 mmol/L (132-148)
[2016-11-22 12:17] LABS: NEUTROPHIL 88 % (50-75); TOTAL CELLS COUNTED 100
[2016-11-22] MEDS: Potassium Chloride 20 mEq ER Tab PO SCH ×2 (13:29→18:25)
--- NOTE | 2016-11-22 13:37 | CP.PCM.PN ---
Subjective - Date & Time of Evaluation Date of Evaluation: 11/22/16 Time of Evaluation: 16:00 - Subjective Subjective: Patient states he has hip pain, but says pain is controlled. Ambulates with walker at baseline Risks/benefits/alternatives of hip ORIF explained to patient in detail. Advised patient that he is at high risk per cardio/medicine for procedure. Patient verbalized that he understands risks, and adamantly states he wants to proceed with surgery. Objective - Vital Signs/Intake and Output Vital Signs (last 24 hours): Temp Pulse Resp BP Pulse Ox 97.3 F L 88 18 103/60 99 11/22/16 07:40 11/22/16 07:40 11/22/16 07:40 11/22/16 07:40 11/22/16 07:40 Intake and Output: 11/22/16 11/22/16 06:59 18:59 Intake Total 400 Output Total 250 Balance 150 - Medications Medications: Current Medications Clopidogrel Bisulfate (Plavix) 75 mg PO DAILY [facility] Last Admin: 11/21/16 10:39 Dose: 75 mg Hydromorphone HCl (Dilaudid) 0.5 mg IVP Q4H PRN PRN Reason: Pain, moderate (4-7) Last Admin: 11/22/16 04:59 Dose: 0.5 mg Potassium Chloride 10 meq/ (Sodium Chloride) 1,005 mls @ 60 mls/hr IV .[id number] [facility] Pantoprazole Sodium (Protonix Ec Tab) 40 mg PO DAILY [facility] Last Admin: 11/22/16 10:25 Dose: 40 mg Pneumococcal Polyvalent Vaccine (Pneumovax 23 Vaccine) 0.5 ml IM .ONCE ONE Stop: 11/23/16 10:01 Potassium Chloride (K-Dur 20 Meq Er Tab) 40 meq PO Q4 JULIO Stop: 11/22/16 16:01 Last Admin: 11/22/16 13:29 Dose: 40 meq Rosuvastatin Calcium (Crestor) 5 mg PO HS [facility] Last Admin: 11/21/16 22:47 Dose: 5 mg Fluticasone/Salmeterol (Advair Diskus 250/50) 1 puff INH RQ12 [facility] Last Admin: 11/22/16 09:00 Dose: Not Given - Labs Labs: 11/22/16 11:19 11/22/16 11:19 PT 13.4 SECONDS (9.7-12.2) H 11/20/16 14:52 INR 1.2 11/20/16 14:52 - Constitutional Appears: Well, No Acute Distress - Extremities Exam Additional comments: LLE: +ROM ankle/toes, sensation intact, calves soft NT neg homans Assessment and Plan (1) Closed intertrochanteric fracture of left femur Assessment & Plan: NPO p 7am 11/23 for OR high risk, med/cardio noted hypokalemia, f/u am labs anemia, for PRBC transfusion, labs in am, T&C plavix held, last dose 11/21, Dr. Okeefe aware, small incisions with planned procedure and lower EBL expected d/w Dr. Okeefe, agrees with above Status: Acute
--- NOTE | 2016-11-22 17:34 | CP.PCM.PCO ---
Physician Communication Note - Physician Communication Note Physician Communication Note: Pt is at high risk for surgery as per Dr. Rollins
--- NOTE | 2016-11-22 18:06 | CP.PCM.PN ---
Subjective - Date & Time of Evaluation Date of Evaluation: 11/22/16 Time of Evaluation: 08:20 - Subjective Subjective: c/o left hip pain NAD Objective - Vital Signs/Intake and Output Vital Signs (last 24 hours): Temp Pulse Resp BP Pulse Ox 97.7 F 90 20 96/57 L 100 11/22/16 15:20 11/22/16 15:20 11/22/16 15:20 11/22/16 15:20 11/22/16 15:20 Intake and Output: 11/22/16 11/22/16 06:59 18:59 Intake Total 400 Output Total 250 Balance 150 - Medications Medications: Current Medications Clopidogrel Bisulfate (Plavix) 75 mg PO DAILY [facility] Last Admin: 11/21/16 10:39 Dose: 75 mg Hydromorphone HCl (Dilaudid) 0.5 mg IVP Q4H PRN PRN Reason: Pain, moderate (4-7) Last Admin: 11/22/16 04:59 Dose: 0.5 mg Potassium Chloride 10 meq/ (Sodium Chloride) 1,005 mls @ 60 mls/hr IV .[id number] [facility] Last Admin: 11/22/16 15:35 Dose: 60 mls/hr Pantoprazole Sodium (Protonix Ec Tab) 40 mg PO DAILY [facility] Last Admin: 11/22/16 10:25 Dose: 40 mg Pneumococcal Polyvalent Vaccine (Pneumovax 23 Vaccine) 0.5 ml IM .ONCE ONE Stop: 11/23/16 10:01 Rosuvastatin Calcium (Crestor) 5 mg PO HS [facility] Last Admin: 11/21/16 22:47 Dose: 5 mg Fluticasone/Salmeterol (Advair Diskus 250/50) 1 puff INH RQ12 [facility] Last Admin: 11/22/16 09:00 Dose: Not Given - Labs Labs: 11/22/16 11:19 11/22/16 11:19 PT 13.4 SECONDS (9.7-12.2) H 11/20/16 14:52 INR 1.2 11/20/16 14:52 - Constitutional Appears: No Acute Distress, Chronically Ill - Eye Exam Eye Exam: Scleral icterus - ENT Exam ENT Exam: Mucous Membranes Moist - Neck Exam Neck Exam: Full ROM Additional comments: +carotid bruit - Respiratory Exam Respiratory Exam: Decreased Breath Sounds - Cardiovascular Exam Cardiovascular Exam: REGULAR RHYTHM - GI/Abdominal Exam GI & Abdominal Exam: Normal Bowel Sounds - Extremities Exam Extremities Exam: Calf Tenderness. absent: Pedal Edema Additional comments: left hip pain Assessment and Plan - Assessment and Plan (Free Text) Assessment: Left hip fracture Severe carotid artery disease PVD COPD Plan: High risk for surgery DC antiplatelet 3-4 days prior to surgery
--- NOTE | 2016-11-22 21:57 | CP.PCM.CON ---
History of Present Illness - History of Present Illness History of Present Illness: I agree with Dr. Mariee and Dr. Rollins's risk assessment for the surgery Due to age, Poor general condition, CAD, PAD and Carotid artery disease: This patient assessed as high (~7-10%) cardiovascular risk for ORIF But if the benefit out weighs the risk can proceed with the surgery after discussing with the patient Thank you Past Patient History - Infectious Disease Hx of Infectious Diseases: None - Past Medical History & Family History Past Medical History?: No - Past Social History Smoking Status: Former Smoker - CARDIAC Hx Hypertension: Yes - PULMONARY Hx Chronic Obstructive Pulmonary Disease (COPD): Yes - NEUROLOGICAL HX Cerebrovascular Accident: Yes (7 YEARS AGO) - MUSCULOSKELETAL/RHEUMATOLOGICAL Hx Falls: Yes - PSYCHIATRIC Hx Substance Use: No - SURGICAL HISTORY Hx Surgeries: No - ANESTHESIA Hx Anesthesia: No Meds Allergies/Adverse Reactions: Allergies Allergy/AdvReac Type Severity Reaction Status Date / Time No Known Allergies Allergy Verified 08/30/16 10:34 - Medications Medications: Current Medications Clopidogrel Bisulfate (Plavix) 75 mg PO DAILY [facility] Last Admin: 11/21/16 10:39 Dose: 75 mg Hydromorphone HCl (Dilaudid) 0.5 mg IVP Q4H PRN PRN Reason: Pain, moderate (4-7) Last Admin: 11/22/16 04:59 Dose: 0.5 mg Potassium Chloride 10 meq/ (Sodium Chloride) 1,005 mls @ 60 mls/hr IV .[id number] [facility] Last Admin: 11/22/16 15:35 Dose: 60 mls/hr Pantoprazole Sodium (Protonix Ec Tab) 40 mg PO DAILY [facility] Last Admin: 11/22/16 10:25 Dose: 40 mg Pneumococcal Polyvalent Vaccine (Pneumovax 23 Vaccine) 0.5 ml IM .ONCE ONE Stop: 11/23/16 10:01 Rosuvastatin Calcium (Crestor) 5 mg PO HS [facility] Last Admin: 11/21/16 22:47 Dose: 5 mg Fluticasone/Salmeterol (Advair Diskus 250/50) 1 puff INH RQ12 [facility] Last Admin: 11/22/16 19:30 Dose: 1 puff Results - Vital Signs Recent Vital Signs: Last Vital Signs Temp 98.5 F 11/22/16 19:56 Pulse 84 11/22/16 19:56 Resp 20 11/22/16 19:56 BP 90/44 L 11/22/16 19:56 Pulse Ox 100 11/22/16 19:13 - Labs Result Diagrams: 11/22/16 11:19 11/22/16 11:19 Labs: Laboratory Results - last 24 hr 11/20/16 11/21/16 11/21/16 14:52 21:50 21:50 WBC RBC Hgb Hct MCV MCH MCHC RDW Plt Count MPV Neut % (Auto) Lymph % (Auto) [place] % (Auto) Eos % (Auto) Baso % (Auto) Neut # Lymph # [place] # Eos # Baso # Neutrophils % (Manual) Band Neutrophils % Lymphocytes % (Manual) Monocytes % (Manual) Platelet Estimate Hypochromasia (manual) Poikilocytosis (manual Anisocytosis (manual) Macrocytosis (manual) Ovalocytes Rolanda Cells Sodium Potassium Chloride Carbon Dioxide Anion Gap BUN Creatinine Est GFR ( Amer) Est GFR (Non-Af Amer) Random Glucose Calcium Urine Color Yellow Urine Clarity Hazy Urine pH 5.0 Ur Specific [place] 1.018 Urine Protein Negative Urine Glucose (UA) Normal Urine Ketones Trace Urine Blood 1+ H Urine Nitrate Negative Urine Bilirubin Negative Urine Urobilinogen Normal Ur Leukocyte Esterase Neg Urine WBC (Auto) 9 H Urine RBC (Auto) 11 H Ur Squamous Epith Cells 7 H Urine Bacteria Rare Hyaline Casts 11-20 H Urine Opiates Screen Positive Urine Methadone Screen Negative Ur Barbiturates Screen Negative Ur Phencyclidine Scrn Negative Ur Amphetamines Screen Negative U Benzodiazepines Scrn Negative U Oth Cocaine Metabols Negative U Cannabinoids Screen Negative Blood Type O POSITIVE Antibody Screen Negative 11/22/16 11/22/16 11:19 11:19 WBC 9.2 D RBC 3.29 L Hgb 8.4 L Hct 25.4 L MCV 77.4 L MCH 25.6 L MCHC 33.1 RDW 17.9 H Plt Count 313 MPV 7.4 Neut % (Auto) 85.4 H Lymph % (Auto) 8.4 L [place] % (Auto) 6.0 Eos % (Auto) 0.0 Baso % (Auto) 0.2 Neut # 7.9 H Lymph # 0.8 L [place] # 0.6 Eos # 0.0 Baso # 0.0 Neutrophils % (Manual) 88 H Band Neutrophils % 1 Lymphocytes % (Manual) 7 L Monocytes % (Manual) 4 Platelet Estimate Normal Hypochromasia (manual) Slight Poikilocytosis (manual Slight Anisocytosis (manual) Slight Macrocytosis (manual) Slight Ovalocytes Slight [place] Cells Slight Sodium 129 L Potassium 3.1 L Chloride 98 Carbon Dioxide 21 L Anion Gap 13 BUN 14 Creatinine 0.6 L Est GFR ( Amer) > 60 Est GFR (Non-Af Amer) > 60 Random Glucose 90 Calcium 7.8 L Urine Color Urine Clarity Urine pH Ur Specific [place] Urine Protein Urine Glucose (UA) Urine Ketones Urine Blood Urine Nitrate Urine Bilirubin Urine Urobilinogen Ur Leukocyte Esterase Urine WBC (Auto) Urine RBC (Auto) Ur Squamous Epith Cells Urine Bacteria Hyaline Casts Urine Opiates Screen Urine Methadone Screen Ur Barbiturates Screen Ur Phencyclidine Scrn Ur Amphetamines Screen U Benzodiazepines Scrn U Oth Cocaine Metabols U Cannabinoids Screen Blood Type Antibody Screen
--- NOTE | 2016-11-22 23:35 | CP.PCM.PN ---
Subjective - Date & Time of Evaluation Date of Evaluation: 11/22/16 Time of Evaluation: 20:40 - Subjective Subjective: Pt seen and examined, pt is high risk for surgery for carotid stenosis, Due to age, Poor general condition, CAD, PAD and Carotid artery disease: This patient assessed as high (~7-10%) cardiovascular risk for ORIF But if the benefit out weighs the risk can proceed with the surgery after discussing with the patient Pt is walking with help of walker, he would like to walk again as per pt otherwise he has no reason to live Objective - Vital Signs/Intake and Output Vital Signs (last 24 hours): Temp Pulse Resp BP Pulse Ox 98.2 F 93 H 20 114/63 100 11/22/16 23:00 11/22/16 23:00 11/22/16 23:00 11/22/16 23:00 11/22/16 19:13 Intake and Output: 11/22/16 11/23/16 18:59 06:59 Intake Total 375 Balance 375 - Medications Medications: Current Medications Clopidogrel Bisulfate (Plavix) 75 mg PO DAILY [facility] Last Admin: 11/21/16 10:39 Dose: 75 mg Hydromorphone HCl (Dilaudid) 0.5 mg IVP Q4H PRN PRN Reason: Pain, moderate (4-7) Last Admin: 11/22/16 04:59 Dose: 0.5 mg Potassium Chloride 10 meq/ (Sodium Chloride) 1,005 mls @ 60 mls/hr IV .[id number] [facility] Last Admin: 11/22/16 15:35 Dose: 60 mls/hr Pantoprazole Sodium (Protonix Ec Tab) 40 mg PO DAILY [facility] Last Admin: 11/22/16 10:25 Dose: 40 mg Pneumococcal Polyvalent Vaccine (Pneumovax 23 Vaccine) 0.5 ml IM .ONCE ONE Stop: 11/23/16 10:01 Rosuvastatin Calcium (Crestor) 5 mg PO HS [facility] Last Admin: 11/22/16 23:33 Dose: 5 mg Fluticasone/Salmeterol (Advair Diskus 250/50) 1 puff INH RQ12 [facility] Last Admin: 11/22/16 19:30 Dose: 1 puff - Labs Labs: 11/22/16 11:19 11/22/16 11:19 PT 13.4 SECONDS (9.7-12.2) H 11/20/16 14:52 INR 1.2 11/20/16 14:52 - Constitutional Appears: No Acute Distress, Chronically Ill - Eye Exam Eye Exam: EOMI, Normal appearance, PERRL Pupil Exam: NORMAL ACCOMODATION, PERRL - ENT Exam ENT Exam: Mucous Membranes Moist, Normal Exam - Neck Exam Neck Exam: Full ROM, Normal Inspection. absent: Lymphadenopathy - Respiratory Exam Respiratory Exam: Clear to Ausculation Bilateral, NORMAL BREATHING PATTERN - Cardiovascular Exam Cardiovascular Exam: REGULAR RHYTHM, +S1, +S2. absent: Murmur - GI/Abdominal Exam GI & Abdominal Exam: Soft, Normal Bowel Sounds. absent: Tenderness - Extremities Exam Extremities Exam: Joint Swelling, Tenderness - Neurological Exam Neurological Exam: Abnormal Gait Assessment and Plan (1) Alcohol abuse Status: Acute (2) Anemia Status: Acute (3) Fall Status: Acute (4) Hip fracture Status: Acute
[2016-11-23 08:10] LABS: INR 1.2
[2016-11-23 08:17] LABS: BASO % 0.5 % (0.0-2.0); EOS % 0.4 % (0.0-4.0); LYMPH # 0.8 K/uL (1.0-4.3); MEAN CORPUSCULAR HEMOGLOBIN 26.9 pg (27.0-31.0); MEAN CORPUSCULAR HGB CONC 33.9 g/dL (33.0-37.0); MEAN PLATELET VOLUME 7.3 fL (7.2-11.7); MONO # 0.5 K/uL (0.0-0.8); MONO % 6.5 % (0.0-10.0); NRBC % 0.1 % (0.0-2.0); RED CELL DISTRIBUTION WIDTH 18.5 % (11.5-14.5); WHITE BLOOD COUNT 7.7 K/uL (4.8-10.8)
[2016-11-23 08:23] LABS: MEAN CELL VOLUME 79.6 fL (80.0-94.0)
[2016-11-23 08:24] LABS: CHLORIDE 103 mmol/L (98-107); POTASSIUM 3.6 mmol/L (3.6-5.2); SODIUM 130 mmol/L (132-148)
[2016-11-23 08:27] LABS: BLOOD UREA NITROGEN 11 mg/dL (9-20); CARBON DIOXIDE 21 mmol/L (22-30); GFR AFRICAN-AMERICAN > 60; GLUCOSE,RANDOM 82 mg/dL (75-110)
[2016-11-23 08:28] LABS: CALCIUM 7.5 mg/dl (8.6-10.4)
[2016-11-23] MEDS ORDERED: Pneumococcal 23-Valent Vaccine IM ONE (10:00)
[2016-11-23] MEDS: Pantoprazole 40 mg EC Tab PO SCH (10:34)
[2016-11-23] MEDS: Fluticasone-Salmeterol 250-50mcg Diskus INH SCH ×2 (10:35→19:25)
[2016-11-23] MEDS ORDERED: Lactated Ringer's 1,000 ML IV ONE ×3 (16:39→18:38)
[2016-11-23] MEDS ORDERED: Clindamycin 600mg/50ml NS 0 MG/0 ML BAG IVPB ONE (16:53)
[2016-11-23] MEDS ORDERED: ceFAZolin IV 1 gm in Dextrose 1 GM/50 ML BAG IVPB ONE (16:56)
[2016-11-23] MEDS ORDERED: Propofol 10 mg/ml Inj (20 ML) ONE (17:04)
[2016-11-23] MEDS ORDERED: HYDROmorphone 0.5 mg/0.5 ml ISec IVP PRN (18:36)
[2016-11-23] MEDS ORDERED: Digoxin 500 mcg/2ml (0.5 mg/2ml) Inj IVP ONE (19:32)
--- NOTE | 2016-11-23 19:41 | CP.PCM.CON ---
History of Present Illness - History of Present Illness History of Present Illness: patient with Left hip intertrochanteric fracture s/p percutaneous left hip intramedullary nailing today.Patient was in Atrial fibrillation when he was taken to OR.No h/o Atrial fibrillation noted in the EMR. 81 year old male with CAD,Carotid stenosis,hypertension, hyponatremia, etoh abuse, frequent falls, and COPD, presents to the emergency department on 11/20/16 for left hip pain from a fall, which occurred the previous day. He denied any head trauma, LOC, chest pain, shortness of breath, abdominal pain, or any other complaints at time of admission. Denies chest pain or palpitations Review of Systems - Review of Systems Systems not reviewed;Unavailable: Unstable Vital Signs Review of Systems: atrial fibrillation with Rapid ventricular rate 120-140/min - Constitutional Constitutional: Frequent Falls. absent: Chills, Fever, Lethargy, Malaise - EENT Eyes: absent: Exophthalmos, Irritation, Itchy Eyes Ears: absent: Ear Pain, Dizziness Nose/Mouth/Throat: absent: Nasal Congestion, Bleeding Gums, Tongue Swelling, Neck Pain - Cardiovascular Cardiovascular: absent: Chest Pain, Diaphoresis, Edema, Palpitations, Pedal Edema, Rapid Heart Rate - Respiratory Respiratory: Cough, Excessive Mucous Production. absent: Dyspnea, Hemoptysis, Wheezing, Chest Congestion - Gastrointestinal Gastrointestinal: absent: Abdominal Pain, Heartburn, Nausea, Vomiting - Genitourinary Genitourinary: absent: Dysuria, Flank Pain - Musculoskeletal Musculoskeletal: Limited Range of Motion Additional comments: pain and limited movement Left lower extremity - Integumentary Integumentary: absent: Non-Healing Lesions, Pruritus, Skin Ulcer, Wounds - Neurological Neurological: absent: Confusion, Dizziness, Focal Weakness - Endocrine Endocrine: absent: Excessive Sweating, Heat Intolorance - Hematologic/Lymphatic Hematologic: absent: Easy Bleeding, Easy Bruising Past Patient History - Infectious Disease Hx of Infectious Diseases: None - Past Medical History & Family History Past Medical History?: No - Past Social History Smoking Status: Former Smoker Home Situation {Lives}: Alone - CARDIAC Hx Cardiac Disorders: Yes Hx Hypertension: Yes - PULMONARY Hx Chronic Obstructive Pulmonary Disease (COPD): Yes - NEUROLOGICAL HX Cerebrovascular Accident: Yes (7 YEARS AGO) - MUSCULOSKELETAL/RHEUMATOLOGICAL Hx Falls: Yes - PSYCHIATRIC Hx Substance Use: No - SURGICAL HISTORY Hx Surgeries: No - ANESTHESIA Hx Anesthesia: No Meds Allergies/Adverse Reactions: Allergies Allergy/AdvReac Type Severity Reaction Status Date / Time No Known Allergies Allergy Verified 08/30/16 10:34 - Medications Medications: Current Medications Clopidogrel Bisulfate (Plavix) 75 mg PO DAILY [facility] Last Admin: 11/21/16 10:39 Dose: 75 mg Hydromorphone HCl (Dilaudid) 0.5 mg IVP Q4H PRN PRN Reason: Pain, moderate (4-7) Last Admin: 11/22/16 04:59 Dose: 0.5 mg Hydromorphone HCl (Dilaudid) 0.5 mg IVP Q5M PRN PRN Reason: Pain, moderate (4-7) Stop: 11/23/16 20:36 Potassium Chloride 10 meq/ (Sodium Chloride) 1,005 mls @ 60 mls/hr IV .[id number] [facility] Last Admin: 11/23/16 13:58 Dose: 60 mls/hr Ondansetron HCl (Zofran Inj) 4 mg IVP ONCE PRN PRN Reason: Nausea/Vomiting Stop: 11/23/16 20:36 Pantoprazole Sodium (Protonix Ec Tab) 40 mg PO DAILY [facility] Last Admin: 11/23/16 10:34 Dose: 40 mg Rosuvastatin Calcium (Crestor) 5 mg PO HS [facility] Last Admin: 11/22/16 23:33 Dose: 5 mg Fluticasone/Salmeterol (Advair Diskus 250/50) 1 puff INH RQ12 [facility] Last Admin: 11/23/16 19:25 Dose: Not Given Physical Exam - Constitutional Appears: No Acute Distress, Chronically Ill - Head Exam Head Exam: ATRAUMATIC, NORMAL INSPECTION, NORMOCEPHALIC - Eye Exam Eye Exam: EOMI, Normal appearance, PERRL. absent: Periorbital swelling, Scleral icterus Pupil Exam: NORMAL ACCOMODATION - ENT Exam ENT Exam: Mucous Membranes Moist, Normal Oropharynx - Neck Exam Neck exam: Positive for: Normal Inspection. Negative for: Lymphadenopathy, Tenderness - Respiratory Exam Respiratory Exam: Clear to Auscultation Bilateral, NORMAL BREATHING PATTERN. absent: Chest Wall Tenderness, Rhonchi, Wheezes - Cardiovascular Exam Cardiovascular Exam: Tachycardia, Irregular Rhythm. absent: JVD - GI/Abdominal Exam GI & Abdominal Exam: Normal Bowel Sounds, Soft. absent: Distended, Tenderness - Rectal Exam Rectal Exam: Deferred - Extremities Exam Extremities exam: Positive for: pedal pulses present. Negative for: calf tenderness, joint swelling, pedal edema Additional comments: left hip lateral aspect 2 surgical incisions - Back Exam Back exam: absent: rash noted - Neurological Exam Neurological exam: Alert, CN II-XII Intact, Oriented x3 - Skin Skin Exam: Normal Color, Warm Results - Vital Signs Recent Vital Signs: Last Vital Signs Temp 98.8 F 11/23/16 15:00 Pulse 94 H 11/23/16 15:00 Resp 20 11/23/16 15:00 BP 117/62 11/23/16 15:00 Pulse Ox 96 11/23/16 15:00 - Labs Result Diagrams: 11/23/16 07:51 11/23/16 07:51 Labs: Laboratory Results - last 24 hr 11/20/16 11/23/16 11/23/16 14:52 07:51 07:51 WBC 7.7 RBC 4.15 L Hgb 11.2 L D Hct 33.0 L MCV 79.6 L D MCH 26.9 L MCHC 33.9 RDW 18.5 H Plt Count 301 MPV 7.3 Neut % (Auto) 82.6 H Lymph % (Auto) 10.0 L [place] % (Auto) 6.5 Eos % (Auto) 0.4 Baso % (Auto) 0.5 Neut # 6.4 Lymph # 0.8 L [place] # 0.5 Eos # 0.0 Baso # 0.0 PT INR APTT Sodium 130 L Potassium 3.6 Chloride 103 Carbon Dioxide 21 L Anion Gap 10 BUN 11 Creatinine 0.6 L Est GFR ( Amer) > 60 Est GFR (Non-Af Amer) > 60 Random Glucose 82 Calcium 7.5 L Blood Type O POSITIVE Antibody Screen Negative 11/23/16 11/23/16 07:51 07:51 WBC RBC Hgb Hct MCV MCH MCHC RDW Plt Count MPV Neut % (Auto) Lymph % (Auto) [place] % (Auto) Eos % (Auto) Baso % (Auto) Neut # Lymph # [place] # Eos # Baso # PT 13.5 H INR 1.2 APTT 32 Sodium Potassium Chloride Carbon Dioxide Anion Gap BUN Creatinine Est GFR ( Amer) Est GFR (Non-Af Amer) Random Glucose Calcium Blood Type O POSITIVE Antibody Screen Negative - EKG Data EKG comments: EKG pending - Imaging and Cardiology Chest x-ray Status: Report reviewed by me Assessment & Plan - Assessment and Plan (Free Text) Assessment: 1.Left hip inter trochanteric fracture s/p percutaneous Left hip intramedullary nailing Pain control 2.Atrial fibrillation with rapid ventricular rate.Digoxin ordered but prior to receiving medication patient converted to sinus rhythm with rate in the low 100' s f/u clinically and Troponin level. 3.CAD/HTN-continue current meds.Being f/u by Cardiology 4.Carotid stenosis 5.Anemia-f/u H/H 6.Hyponatremia-Na improved to 130.rpt labs in am 7.COPD-continue meds
[2016-11-23 20:40] LABS: BASO # 0.1 K/uL (0.0-0.2); BASO % 0.5 % (0.0-2.0); EOS % 0.1 % (0.0-4.0); HEMATOCRIT 36.2 % (35.0-51.0); LYMPH # 0.8 K/uL (1.0-4.3); MEAN CELL VOLUME 80.9 fL (80.0-94.0); MEAN CORPUSCULAR HEMOGLOBIN 26.6 pg (27.0-31.0); MEAN CORPUSCULAR HGB CONC 32.8 g/dL (33.0-37.0); MEAN PLATELET VOLUME 6.7 fL (7.2-11.7); MONO # 0.5 K/uL (0.0-0.8); MONO % 3.9 % (0.0-10.0); PLATELET COUNT 344 K/uL (130-400); RED CELL DISTRIBUTION WIDTH 18.6 % (11.5-14.5); WHITE BLOOD COUNT 11.9 K/uL (4.8-10.8)
[2016-11-23 20:48] LABS: CHLORIDE 101 mmol/L (98-107); POTASSIUM 3.9 mmol/L (3.6-5.2); SODIUM 130 mmol/L (132-148)
[2016-11-23 20:51] LABS: BLOOD UREA NITROGEN 9 mg/dL (9-20); CARBON DIOXIDE 22 mmol/L (22-30); GFR AFRICAN-AMERICAN > 60; GLUCOSE,RANDOM 84 mg/dL (75-110)
[2016-11-23 20:52] LABS: CALCIUM 7.6 mg/dl (8.6-10.4)
[2016-11-23] MEDS: Oxycodone/Acetaminophen 5/325 mg Tab PO PRN (22:20)
[2016-11-23] MEDS: ceFAZolin IV 2 gm in Dextrose 1 GM/50 ML BAG IVPB SCH (22:25)
--- NOTE | 2016-11-23 22:34 | CARD ---
APPROVED REPORT EKG Measurement Heart [id number] <Conclusion> Normal sinus rhythm Normal ECG
--- NOTE | 2016-11-23 22:42 | CARD ---
APPROVED REPORT EKG Measurement Heart [id number] <Conclusion> Normal sinus rhythm Normal ECG
--- NOTE | 2016-11-23 23:01 | CP.PCM.PN ---
Subjective - Date & Time of Evaluation Date of Evaluation: 11/23/16 Time of Evaluation: 20:00 - Subjective Subjective: pt seen and examined had Atrial fibrillation with rapid ventricular rate.Digoxin ordered but prior to receiving medication patient converted to sinus rhythm with rate in the low 100's f/u clinically and Troponin level. Objective - Vital Signs/Intake and Output Vital Signs (last 24 hours): Temp Pulse Resp BP Pulse Ox 98.9 F 104 H 24 119/64 100 11/23/16 20:53 11/23/16 20:53 11/23/16 20:53 11/23/16 20:53 11/23/16 20:53 Intake and Output: 11/23/16 11/24/16 18:59 06:59 Intake Total 480 Output Total 250 150 Balance 230 -150 - Medications Medications: Current Medications Acetaminophen (Tylenol 325mg Tab) 650 mg PO Q6 PRN PRN Reason: Pain, Mild (1-3) Clopidogrel Bisulfate (Plavix) 75 mg PO DAILY [facility] Last Admin: 11/21/16 10:39 Dose: 75 mg Enoxaparin Sodium (Lovenox) 30 mg SC DAILY [facility] Stop: 12/07/16 23:59 Hydromorphone HCl (Dilaudid) 0.5 mg IVP Q4H PRN PRN Reason: Pain, moderate (4-7) Last Admin: 11/22/16 04:59 Dose: 0.5 mg Potassium Chloride 10 meq/ (Sodium Chloride) 1,005 mls @ 40 mls/hr IV .Q24H [facility] Stop: 11/24/16 21:59 Last Admin: 11/23/16 22:25 Dose: 40 mls/hr Cefazolin Sodium/Dextrose (Ancef Iv 2 Gm Duplex) 1 gm in 50 mls @ 100 mls/hr IVPB Q12 [facility] Stop: 11/24/16 22:05 Last Admin: 11/23/16 22:25 Dose: 100 mls/hr Oxycodone/Acetaminophen (Percocet 5/325 Mg Tab) 1 tab PO Q6H PRN PRN Reason: Pain, moderate (4-7) Stop: 11/26/16 20:14 Last Admin: 11/23/16 22:20 Dose: 1 tab Oxycodone/Acetaminophen (Percocet 5/325 Mg Tab) 2 tab PO Q6H PRN PRN Reason: Pain, severe (8-10) Stop: 11/26/16 20:14 Pantoprazole Sodium (Protonix Ec Tab) 40 mg PO DAILY [facility] Last Admin: 11/23/16 10:34 Dose: 40 mg Rosuvastatin Calcium (Crestor) 5 mg PO HS [facility] Last Admin: 11/23/16 22:20 Dose: 5 mg Fluticasone/Salmeterol (Advair Diskus 250/50) 1 puff INH RQ12 [facility] Last Admin: 11/23/16 19:25 Dose: Not Given - Labs Labs: 11/23/16 20:36 11/23/16 20:36 PT 13.5 SECONDS (9.7-12.2) H 11/23/16 07:51 INR 1.2 11/23/16 07:51 APTT 32 SECONDS (21-34) 11/23/16 07:51 - Constitutional Appears: No Acute Distress - Head Exam Head Exam: ATRAUMATIC, NORMAL INSPECTION, NORMOCEPHALIC - Eye Exam Eye Exam: EOMI, Normal appearance, PERRL Pupil Exam: NORMAL ACCOMODATION, PERRL - Respiratory Exam Respiratory Exam: Clear to Ausculation Bilateral, NORMAL BREATHING PATTERN - Cardiovascular Exam Cardiovascular Exam: Tachycardia, +S1, +S2 - GI/Abdominal Exam GI & Abdominal Exam: Soft, Normal Bowel Sounds. absent: Tenderness Assessment and Plan (1) Alcohol abuse Status: Acute (2) Anemia Status: Acute (3) Fall Status: Acute (4) Hip fracture Status: Acute
[2016-11-23 23:10] LABS: LARGE PLATELETS PRESENT; NEUTROPHIL 83 % (50-75); SMUDGE CELLS PRESENT; TOTAL CELLS COUNTED 100
--- NOTE | 2016-11-24 02:26 | OP ---
PROCEDURE DATE: 11/23/2016 PREOPERATIVE DIAGNOSIS: Left hip displaced intratrochanteric fracture. POSTOPERATIVE DIAGNOSIS: Left hip displaced intratrochanteric fracture. PROCEDURE: Left hip closed reduction and intramedullary nail fixation. ATTENDING PHYSICIAN: Fabio Okeefe MD. TYPE OF ANESTHESIA: General. ESTIMATED BLOOD LOSS: 50 mL COMPLICATIONS: None. HISTORY: The patient is an 81-year-old male who had a mechanical fall, landing onto his left hip. He was brought into the emergency room where the x-rays had shown displaced intratrochanteric fracture. The patient was admitted for preoperative clearance. He underwent a necessary preoperative medical workup and was medically cleared and was indicated for surgery. I had a detailed discussion with the patient, reviewing his history, physical exam, and x-ray findings. I presented the patient the option of closed reduction and intramedullary nail fixation and the risks included but not limited to bleeding, infection, neurovascular damage, continued pain, malunion, nonunion, instability, need for further surgery, symptomatic hardware, blood clots, and even . The patient fully understood the risks and benefits and opted to proceed with the surgery. PROCEDURE: On the day of the surgery, the patient was brought down to preop holding area. A laterality of hip was completed confirming the patient's left hip to be the correct operative site. The left hip was marked and informed consent was signed from the patient. Once again, we reviewed the risks and benefits. Afterwards, the patient was brought into operating room table. He underwent general anesthesia. He was placed on the fracture table. All the bony prominences were well padded. First time-out was completed performing the patient's left hip to be the corrective operative site. We proceeded with closed reduction with appropriate maneuvers. The closed reduction was achieved and was found to be adequate. The left hip was draped and prepped in a standard manner. A 3-cm incision was made proximal to the greater trochanter. A guidewire was placed at the tip of the trochanter and the position was confirmed both on AP and lateral radiographs. Next, a drill hole was made and a short [employer] TFN nail was placed. The jig was assembled over the path of the lag screw. A guidewire was placed over the path of lag screw and confirmed with AP and lateral radiographs. Then, it was noted a size #90 mm screw would be appropriate for this patient. The drill hole was made for the lag screw and the lag screw was placed in appropriate position and its position was confirmed with AP and lateral radiographs. Distal locking screw was placed and the final radiographs were taken showing adequate fracture reduction. The wounds were copiously irrigated and closed in a standard manner. A sterile dressing was applied, and there were no complications of surgery. Fabio Okeefe MD
[2016-11-24] MEDS ORDERED: Digoxin 500 mcg/2ml (0.5 mg/2ml) Inj IVP ONE ×2 (03:47→04:37)
[2016-11-24 05:02] VITALS: PULSE 120
[2016-11-24 06:23] LABS: BASO % 0.4 % (0.0-2.0); EOS % 0.2 % (0.0-4.0); HEMATOCRIT 33.6 % (35.0-51.0); LYMPH % 9.4 % (20.0-40.0); MEAN CELL VOLUME 81.2 fL (80.0-94.0); MEAN CORPUSCULAR HEMOGLOBIN 26.2 pg (27.0-31.0); MEAN CORPUSCULAR HGB CONC 32.3 g/dL (33.0-37.0); MEAN PLATELET VOLUME 7.1 fL (7.2-11.7); MONO # 0.7 K/uL (0.0-0.8); MONO % 6.4 % (0.0-10.0); PLATELET COUNT 305 K/uL (130-400); RED CELL DISTRIBUTION WIDTH 18.5 % (11.5-14.5); WHITE BLOOD COUNT 10.7 K/uL (4.8-10.8)
[2016-11-24 06:24] LABS: CHLORIDE 102 mmol/L (98-107)
[2016-11-24 06:25] LABS: POTASSIUM 3.9 mmol/L (3.6-5.2); SODIUM 131 mmol/L (132-148)
[2016-11-24 06:27] LABS: CARBON DIOXIDE 23 mmol/L (22-30); GFR AFRICAN-AMERICAN > 60
[2016-11-24 06:28] LABS: ALB/GLOB RATIO 0.9 (1.0-2.1); ALKALINE PHOSPHATASE 48 U/L (38-126); ALT/SGPT 30 U/L (21-72); AST/SGOT 34 U/L (17-59); BILIRUBIN,TOTAL 2.1 mg/dL (0.2-1.3); BLOOD UREA NITROGEN 11 mg/dL (9-20); CALCIUM 7.4 mg/dl (8.6-10.4); GLUCOSE,RANDOM 76 mg/dL (75-110); MAGNESIUM 1.6 mg/dL (1.6-2.3); PHOSPHOROUS 2.4 mg/dL (2.5-4.5)
--- NOTE | 2016-11-24 07:12 | CP.PCM.PN ---
Subjective - Date & Time of Evaluation Date of Evaluation: 11/24/16 Time of Evaluation: 07:12 - Subjective Subjective: Patient complaining of some hip pain, but controlled with medication. Denies numbness/tingling, No CP/SOB. Objective - Vital Signs/Intake and Output Vital Signs (last 24 hours): Temp Pulse Resp BP Pulse Ox 97.7 F 108 H 17 107/62 100 11/24/16 04:00 11/24/16 06:01 11/24/16 06:01 11/24/16 06:01 11/24/16 06:01 Intake and Output: 11/24/16 11/24/16 06:59 18:59 Intake Total 490 Output Total 420 Balance 70 - Medications Medications: Current Medications Acetaminophen (Tylenol 325mg Tab) 650 mg PO Q6 PRN PRN Reason: Pain, Mild (1-3) Clopidogrel Bisulfate (Plavix) 75 mg PO DAILY [facility] Last Admin: 11/21/16 10:39 Dose: 75 mg Enoxaparin Sodium (Lovenox) 30 mg SC DAILY [facility] Stop: 12/07/16 23:59 Hydromorphone HCl (Dilaudid) 0.5 mg IVP Q4H PRN PRN Reason: Pain, moderate (4-7) Last Admin: 11/22/16 04:59 Dose: 0.5 mg Potassium Chloride 10 meq/ (Sodium Chloride) 1,005 mls @ 40 mls/hr IV .Q24H [facility] Stop: 11/24/16 21:59 Last Admin: 11/23/16 22:25 Dose: 40 mls/hr Cefazolin Sodium/Dextrose (Ancef Iv 2 Gm Duplex) 1 gm in 50 mls @ 100 mls/hr IVPB Q12 [facility] Stop: 11/24/16 22:05 Last Admin: 11/23/16 22:25 Dose: 100 mls/hr Oxycodone/Acetaminophen (Percocet 5/325 Mg Tab) 1 tab PO Q6H PRN PRN Reason: Pain, moderate (4-7) Stop: 11/26/16 20:14 Last Admin: 11/23/16 22:20 Dose: 1 tab Oxycodone/Acetaminophen (Percocet 5/325 Mg Tab) 2 tab PO Q6H PRN PRN Reason: Pain, severe (8-10) Stop: 11/26/16 20:14 Pantoprazole Sodium (Protonix Ec Tab) 40 mg PO DAILY [facility] Last Admin: 11/23/16 10:34 Dose: 40 mg Rosuvastatin Calcium (Crestor) 5 mg PO HS [facility] Last Admin: 11/23/16 22:20 Dose: 5 mg Fluticasone/Salmeterol (Advair Diskus 250/50) 1 puff INH RQ12 [facility] Last Admin: 11/23/16 19:25 Dose: Not Given - Labs Labs: 11/24/16 06:05 11/24/16 06:05 PT 13.5 SECONDS (9.7-12.2) H 11/23/16 07:51 INR 1.2 11/23/16 07:51 APTT 32 SECONDS (21-34) 11/23/16 07:51 - Extremities Exam Additional comments: LLE: dressings intact, dry. +ROM ankle DF/PF toes flex/ext. Sensation intact + DP pulse, calves soft NT neg homans thigh soft, ice to surgical site, venodynes intact Assessment and Plan (1) Closed intertrochanteric fracture of left femur Assessment & Plan: POD#1 s/p left intertroch IM nailing -pt developed rapid afib, in ICU -now sinus 80s -VTE proph lovenox -PT/OT OOB d/c planning d/w Dr. Okeefe, agrees with above monitor h/h Status: Acute
[2016-11-24 08:47] LABS: NEUTROPHIL 77 % (50-75); TOTAL CELLS COUNTED 100
--- NOTE | 2016-11-24 09:09 | RAD ---
PROCEDURE: Left Hip X-ray Radiographs. HISTORY: s/p left IM nail hip fracture COMPARISON: Comparison is made to the previous study dated 11/20/2016 FINDINGS: BONES: Interval internal fixation and insertion of hardware at the left femur through the previously seen intertrochanteric displaced fracture. The left femur now seen at closed normal alignment. JOINTS: Degenerative changes seen at the left hip. No evidence of dislocation P SOFT TISSUES: Postsurgical changes in the adjacent soft tissue. OTHER FINDINGS: None. IMPRESSION: Status post internal fixation at the previously seen left intertrochanteric femoral fracture. Near normal alignment of the bone and appropriate position of the hardware.
[2016-11-24] MEDS: Pantoprazole 40 mg EC Tab PO SCH (09:25)
[2016-11-24] MEDS: ceFAZolin IV 2 gm in Dextrose 1 GM/50 ML BAG IVPB SCH ×2 (09:25→22:13)
--- NOTE | 2016-11-24 09:46 | RAD ---
PROCEDURE: Intraoperative Fluoroscopy. HISTORY: LEFT HIP FX FINDINGS: Fluoroscopic assistance was provided for internal fixation / nail insertion at left intertrochanteric femur fracture. The total fluoroscopic time of this procedure was 54.3 seconds.. Please refer
[2016-11-24] MEDS: Magnesium Sulfate 1 gm in D5W 1 GM/100 ML BAG IVPB SCH ×2 (10:30→10:31)
[2016-11-24] MEDS: Fluticasone-Salmeterol 250-50mcg Diskus INH SCH ×3 (10:31→20:14)
[2016-11-24] MEDS: Enoxaparin 30 mg Syringe SC SCH (18:25)
[2016-11-24] MEDS: Oxycodone/Acetaminophen 5/325 mg Tab PO PRN ×2 (18:26→22:28)
--- NOTE | 2016-11-24 22:32 | CP.PCM.PN ---
Subjective - Date & Time of Evaluation Date of Evaluation: 11/24/16 Time of Evaluation: 18:55 - Subjective Subjective: Pt is doing well after surgery, good intake output, s/p ORIF left hips frature, on medical managment, PT, rehab Objective - Vital Signs/Intake and Output Vital Signs (last 24 hours): Temp Pulse Resp BP Pulse Ox 99.1 F 95 H 14 95/60 L 100 11/24/16 20:00 11/24/16 21:08 11/24/16 21:00 11/24/16 19:10 11/24/16 21:00 Intake and Output: 11/24/16 11/25/16 18:59 06:59 Intake Total 600 80 Output Total 65 Balance 535 80 - Medications Medications: Current Medications Acetaminophen (Tylenol 325mg Tab) 650 mg PO Q6 PRN PRN Reason: Pain, Mild (1-3) Clopidogrel Bisulfate (Plavix) 75 mg PO DAILY [facility] Last Admin: 11/21/16 10:39 Dose: 75 mg Enoxaparin Sodium (Lovenox) 30 mg SC DAILY [facility] Stop: 12/07/16 23:59 Last Admin: 11/24/16 18:25 Dose: 30 mg Hydromorphone HCl (Dilaudid) 0.5 mg IVP Q4H PRN PRN Reason: Pain, moderate (4-7) Last Admin: 11/22/16 04:59 Dose: 0.5 mg Oxycodone/Acetaminophen (Percocet 5/325 Mg Tab) 1 tab PO Q6H PRN PRN Reason: Pain, moderate (4-7) Stop: 11/26/16 20:14 Last Admin: 11/24/16 18:26 Dose: 1 tab Oxycodone/Acetaminophen (Percocet 5/325 Mg Tab) 2 tab PO Q6H PRN PRN Reason: Pain, severe (8-10) Stop: 11/26/16 20:14 Last Admin: 11/24/16 22:28 Dose: 2 tab Pantoprazole Sodium (Protonix Ec Tab) 40 mg PO DAILY [facility] Last Admin: 11/24/16 09:25 Dose: 40 mg Rosuvastatin Calcium (Crestor) 5 mg PO HS [facility] Last Admin: 11/24/16 22:14 Dose: 5 mg Fluticasone/Salmeterol (Advair Diskus 250/50) 1 puff INH RQ12 [facility] Last Admin: 11/24/16 20:14 Dose: 1 puff - Labs Labs: 11/24/16 06:05 11/24/16 06:05 PT 13.5 SECONDS (9.7-12.2) H 11/23/16 07:51 INR 1.2 11/23/16 07:51 APTT 32 SECONDS (21-34) 11/23/16 07:51 - Constitutional Appears: No Acute Distress, Chronically Ill - Head Exam Head Exam: ATRAUMATIC, NORMAL INSPECTION, NORMOCEPHALIC - Eye Exam Eye Exam: EOMI, Normal appearance, PERRL Pupil Exam: NORMAL ACCOMODATION, PERRL - Neck Exam Neck Exam: Full ROM, Normal Inspection. absent: Lymphadenopathy - Respiratory Exam Respiratory Exam: Clear to Ausculation Bilateral, NORMAL BREATHING PATTERN - Cardiovascular Exam Cardiovascular Exam: REGULAR RHYTHM, +S1, +S2. absent: Murmur - Extremities Exam Additional comments: LLE: dressings intact, dry. +ROM ankle DF/PF toes flex/ext. Sensation intact + DP pulse, calves soft NT neg homans thigh soft, ice to surgical site, venodynes intact - Neurological Exam Neurological Exam: Alert, Awake, Oriented x3 - Psychiatric Exam Psychiatric exam: Normal Affect, Normal Mood Assessment and Plan (1) Alcohol abuse Status: Acute (2) Anemia Status: Acute (3) Fall Status: Acute (4) Hip fracture Assessment & Plan: - Assessment and Plan (1) Closed intertrochanteric fracture of left femur Assessment & Plan: POD#1 s/p left intertroch IM nailing -pt developed rapid afib, in ICU -now sinus 80s -VTE proph lovenox -PT/OT OOB d/c planning Status: Acute
[2016-11-25 06:24] LABS: HEMATOCRIT 28.6 % (35.0-51.0); MEAN CELL VOLUME 80.2 fL (80.0-94.0); MEAN CORPUSCULAR HEMOGLOBIN 26.9 pg (27.0-31.0); MEAN CORPUSCULAR HGB CONC 33.5 g/dL (33.0-37.0); MEAN PLATELET VOLUME 6.8 fL (7.2-11.7); RED CELL DISTRIBUTION WIDTH 19.4 % (11.5-14.5)
[2016-11-25 06:43] LABS: CHLORIDE 100 mmol/L (98-107); POTASSIUM 3.2 mmol/L (3.6-5.2); SODIUM 128 mmol/L (132-148)
[2016-11-25 06:46] LABS: CARBON DIOXIDE 21 mmol/L (22-30); GFR AFRICAN-AMERICAN > 60
[2016-11-25 06:47] LABS: BLOOD UREA NITROGEN 11 mg/dL (9-20); CALCIUM 7.1 mg/dl (8.6-10.4); GLUCOSE,RANDOM 86 mg/dL (75-110)
[2016-11-25] MEDS: Fluticasone-Salmeterol 250-50mcg Diskus INH SCH ×2 (07:11→20:14)
--- NOTE | 2016-11-25 07:22 | CP.PCM.PN ---
Subjective - Date & Time of Evaluation Date of Evaluation: 11/25/16 Time of Evaluation: 07:22 - Subjective Subjective: Patient states he is feeling better today. Denies CP/SOb/dizziness/numbness/ tingling Objective - Vital Signs/Intake and Output Vital Signs (last 24 hours): Temp Pulse Resp BP Pulse Ox 98.7 F 77 8 L 95/48 L 100 11/25/16 04:00 11/25/16 04:00 11/25/16 04:00 11/25/16 03:56 11/25/16 04:00 Intake and Output: 11/25/16 11/25/16 06:59 18:59 Intake Total 740 Output Total 150 Balance 590 - Medications Medications: Current Medications Acetaminophen (Tylenol 325mg Tab) 650 mg PO Q6 PRN PRN Reason: Pain, Mild (1-3) Clopidogrel Bisulfate (Plavix) 75 mg PO DAILY [facility] Last Admin: 11/21/16 10:39 Dose: 75 mg Enoxaparin Sodium (Lovenox) 30 mg SC DAILY [facility] Stop: 12/07/16 23:59 Last Admin: 11/24/16 18:25 Dose: 30 mg Hydromorphone HCl (Dilaudid) 0.5 mg IVP Q4H PRN PRN Reason: Pain, moderate (4-7) Last Admin: 11/22/16 04:59 Dose: 0.5 mg Oxycodone/Acetaminophen (Percocet 5/325 Mg Tab) 1 tab PO Q6H PRN PRN Reason: Pain, moderate (4-7) Stop: 11/26/16 20:14 Last Admin: 11/24/16 18:26 Dose: 1 tab Oxycodone/Acetaminophen (Percocet 5/325 Mg Tab) 2 tab PO Q6H PRN PRN Reason: Pain, severe (8-10) Stop: 11/26/16 20:14 Last Admin: 11/24/16 22:28 Dose: 2 tab Pantoprazole Sodium (Protonix Ec Tab) 40 mg PO DAILY [facility] Last Admin: 11/24/16 09:25 Dose: 40 mg Rosuvastatin Calcium (Crestor) 5 mg PO HS [facility] Last Admin: 11/24/16 22:14 Dose: 5 mg Fluticasone/Salmeterol (Advair Diskus 250/50) 1 puff INH RQ12 [facility] Last Admin: 11/25/16 07:11 Dose: 1 puff - Labs Labs: 11/25/16 06:16 11/25/16 06:16 PT 13.5 SECONDS (9.7-12.2) H 11/23/16 07:51 INR 1.2 11/23/16 07:51 APTT 32 SECONDS (21-34) 11/23/16 07:51 - Extremities Exam Additional comments: +ROM ankle/toes, sensation intact, TTP to thigh, swelling stable, calves soft NT neg homans +venodynes Assessment and Plan (1) Closed intertrochanteric fracture of left femur Assessment & Plan: POD#2 s/p left hip IM troch nail -PT/OT, note appreciated, patient encouraged to participate and get OOB today -VTE proph -d/c planning -ortho stable -d/w Dr. Okeefe, agrees with above Status: Acute
[2016-11-25] MEDS: Oxycodone/Acetaminophen 5/325 mg Tab PO PRN ×2 (07:31→22:06)
[2016-11-25] MEDS: Potassium Chloride 20 mEq ER Tab PO SCH ×2 (08:47→11:59)
[2016-11-25] MEDS: Enoxaparin 30 mg Syringe SC SCH (09:51)
[2016-11-25] MEDS: Pantoprazole 40 mg EC Tab PO SCH (09:51)
--- NOTE | 2016-11-25 17:03 | RAD ---
HISTORY: r/o pneumonia COMPARISON: Chest x-ray performed 11/20/16. TECHNIQUE: Chest, one view. FINDINGS: LUNGS: Biapical pleural thickening. No significant interval change in the lungs noted since the previous exam. Again seen are patchy foci of calcification in the chest may represent calcified pleural plaques. PLEURA: No significant pleural effusion identified. No definite pneumothorax . CARDIOVASCULAR: Heart size appears within normal limits. Right hilar/ mediastinal bulge of unclear significance; underlying adenopathy cannot be excluded. Please note patient is obliques and this appearance may be artifactual. OSSEOUS STRUCTURES: Osseous demineralization. Degenerative changes. VISUALIZED UPPER ABDOMEN: Unremarkable. OTHER FINDINGS: None. IMPRESSION: Biapical pleural thickening. Patchy foci of calcification bilaterally within the chest, may represent calcified pleural plaques. Right hilar/ mediastinal bulge of unclear significance; underlying adenopathy cannot be excluded. Please note patient is obliques and this appearance may be artifactual.
[2016-11-25] MEDS: guaiFENesin 200 mg/10 ml Syrup UD PO SCH (17:21)
[2016-11-25] MEDS: Piperacill/Tazo 3.375gm in Dex 3.375 GM/50 ML BAG IVPB SCH (17:21)
[2016-11-25] MEDS: Albuterol-Ipratrop 3 mg / 0.5 (3 ml) UD INH SCH (20:17)
--- NOTE | 2016-11-25 22:17 | CP.PCM.PN ---
Subjective - Date & Time of Evaluation Date of Evaluation: 11/25/16 Time of Evaluation: 21:00 - Subjective Subjective: pt seen and examined, c/o hip pain Objective - Vital Signs/Intake and Output Vital Signs (last 24 hours): Temp Pulse Resp BP Pulse Ox 97.8 F 101 H 18 94/55 L 96 11/25/16 20:00 11/25/16 21:00 11/25/16 21:00 11/25/16 20:00 11/25/16 21:00 - Medications Medications: Current Medications Acetaminophen (Tylenol 325mg Tab) 650 mg PO Q6 PRN PRN Reason: Pain, Mild (1-3) Albuterol/Ipratropium (Duoneb 3 Mg/0.5 Mg (3 Ml) Ud) 3 ml INH RQ6 [facility] Last Admin: 11/25/16 20:17 Dose: 3 ml Clopidogrel Bisulfate (Plavix) 75 mg PO DAILY [facility] Last Admin: 11/25/16 09:51 Dose: 75 mg Enoxaparin Sodium (Lovenox) 30 mg SC DAILY [facility] Stop: 12/07/16 23:59 Last Admin: 11/25/16 09:51 Dose: 30 mg Guaifenesin (Robitussin) 200 mg PO Q6 [facility] Last Admin: 11/25/16 17:21 Dose: 200 mg Hydromorphone HCl (Dilaudid) 0.5 mg IVP Q4H PRN PRN Reason: Pain, moderate (4-7) Last Admin: 11/22/16 04:59 Dose: 0.5 mg Piperacillin Sod/Tazobactam Sod (Zosyn 3.375 Gm Iv Premix) 3.375 gm in 50 mls @ 200 mls/hr IVPB Q8H [facility] Last Admin: 11/25/16 17:21 Dose: 200 mls/hr Oxycodone/Acetaminophen (Percocet 5/325 Mg Tab) 1 tab PO Q6H PRN PRN Reason: Pain, moderate (4-7) Stop: 11/26/16 20:14 Last Admin: 11/25/16 07:31 Dose: 1 tab Oxycodone/Acetaminophen (Percocet 5/325 Mg Tab) 2 tab PO Q6H PRN PRN Reason: Pain, severe (8-10) Stop: 11/26/16 20:14 Last Admin: 11/25/16 22:06 Dose: 2 tab Pantoprazole Sodium (Protonix Ec Tab) 40 mg PO DAILY [facility] Last Admin: 11/25/16 09:51 Dose: 40 mg Rosuvastatin Calcium (Crestor) 5 mg PO HS [facility] Last Admin: 11/25/16 22:06 Dose: 5 mg Fluticasone/Salmeterol (Advair Diskus 250/50) 1 puff INH RQ12 [facility] Last Admin: 11/25/16 20:14 Dose: 1 puff - Labs Labs: 11/25/16 06:16 11/25/16 06:16 PT 13.5 SECONDS (9.7-12.2) H 11/23/16 07:51 INR 1.2 11/23/16 07:51 APTT 32 SECONDS (21-34) 11/23/16 07:51 - Constitutional Appears: No Acute Distress - Head Exam Head Exam: ATRAUMATIC, NORMAL INSPECTION, NORMOCEPHALIC - Eye Exam Eye Exam: EOMI, Normal appearance, PERRL Pupil Exam: NORMAL ACCOMODATION, PERRL - Respiratory Exam Respiratory Exam: Clear to Ausculation Bilateral, NORMAL BREATHING PATTERN - Cardiovascular Exam Cardiovascular Exam: REGULAR RHYTHM, +S1, +S2. absent: Murmur - GI/Abdominal Exam GI & Abdominal Exam: Soft, Normal Bowel Sounds. absent: Tenderness - Rectal Exam Rectal Exam: NORMAL INSPECTION Assessment and Plan (1) Fall Status: Acute (2) Alcohol abuse Status: Acute (3) Anemia Status: Acute (4) Hip fracture Status: Acute
[2016-11-26] MEDS: guaiFENesin 200 mg/10 ml Syrup UD PO SCH ×5 (00:09→23:50)
[2016-11-26] MEDS: Piperacill/Tazo 3.375gm in Dex 3.375 GM/50 ML BAG IVPB SCH ×3 (00:10→17:20)
[2016-11-26] MEDS: Albuterol-Ipratrop 3 mg / 0.5 (3 ml) UD INH SCH ×3 (02:32→19:36)
[2016-11-26 06:34] LABS: HEMATOCRIT 26.1 % (35.0-51.0); MEAN CELL VOLUME 79.9 fL (80.0-94.0); MEAN CORPUSCULAR HEMOGLOBIN 27.2 pg (27.0-31.0); MEAN CORPUSCULAR HGB CONC 34.1 g/dL (33.0-37.0); MEAN PLATELET VOLUME 7.1 fL (7.2-11.7); RED CELL DISTRIBUTION WIDTH 19.1 % (11.5-14.5)
[2016-11-26 06:54] LABS: BLOOD UREA NITROGEN 13 mg/dL (9-20); CALCIUM 7.3 mg/dl (8.6-10.4); CARBON DIOXIDE 22 mmol/L (22-30); CHLORIDE 100 mmol/L (98-107); GFR AFRICAN-AMERICAN > 60; GLUCOSE,RANDOM 88 mg/dL (75-110); SODIUM 126 mmol/L (132-148)
[2016-11-26] MEDS: Fluticasone-Salmeterol 250-50mcg Diskus INH SCH ×2 (07:13→19:36)
[2016-11-26] MEDS: Enoxaparin 30 mg Syringe SC SCH (09:39)
[2016-11-26] MEDS: Pantoprazole 40 mg EC Tab PO SCH (09:39)
--- NOTE | 2016-11-26 09:46 | CP.PCM.PN ---
Subjective - Date & Time of Evaluation Date of Evaluation: 11/26/16 Time of Evaluation: 07:30 - Subjective Subjective: Patient complains of mild hip pain. Took a few side steps with PT. Objective - Vital Signs/Intake and Output Vital Signs (last 24 hours): Temp Pulse Resp BP Pulse Ox 97.9 F 84 12 94/52 L 100 11/26/16 04:00 11/26/16 06:00 11/26/16 06:00 11/26/16 04:00 11/26/16 06:00 Intake and Output: 11/26/16 11/26/16 06:59 18:59 Intake Total 200 Output Total 200 Balance 0 - Medications Medications: Current Medications Acetaminophen (Tylenol 325mg Tab) 650 mg PO Q6 PRN PRN Reason: Pain, Mild (1-3) Albuterol/Ipratropium (Duoneb 3 Mg/0.5 Mg (3 Ml) Ud) 3 ml INH RQ6 [facility] Last Admin: 11/26/16 07:13 Dose: 3 ml Clopidogrel Bisulfate (Plavix) 75 mg PO DAILY [facility] Last Admin: 11/26/16 09:39 Dose: 75 mg Enoxaparin Sodium (Lovenox) 30 mg SC DAILY [facility] Stop: 12/07/16 23:59 Last Admin: 11/26/16 09:39 Dose: 30 mg Guaifenesin (Robitussin) 200 mg PO Q6 [facility] Last Admin: 11/26/16 06:00 Dose: Not Given Hydromorphone HCl (Dilaudid) 0.5 mg IVP Q4H PRN PRN Reason: Pain, moderate (4-7) Last Admin: 11/22/16 04:59 Dose: 0.5 mg Piperacillin Sod/Tazobactam Sod (Zosyn 3.375 Gm Iv Premix) 3.375 gm in 50 mls @ 200 mls/hr IVPB Q8H [facility] Last Admin: 11/26/16 08:33 Dose: 200 mls/hr Oxycodone/Acetaminophen (Percocet 5/325 Mg Tab) 1 tab PO Q6H PRN PRN Reason: Pain, moderate (4-7) Stop: 11/26/16 20:14 Last Admin: 11/25/16 07:31 Dose: 1 tab Oxycodone/Acetaminophen (Percocet 5/325 Mg Tab) 2 tab PO Q6H PRN PRN Reason: Pain, severe (8-10) Stop: 11/26/16 20:14 Last Admin: 11/25/16 22:06 Dose: 2 tab Pantoprazole Sodium (Protonix Ec Tab) 40 mg PO DAILY [facility] Last Admin: 11/26/16 09:39 Dose: 40 mg Rosuvastatin Calcium (Crestor) 5 mg PO HS [facility] Last Admin: 11/25/16 22:06 Dose: 5 mg Fluticasone/Salmeterol (Advair Diskus 250/50) 1 puff INH RQ12 [facility] Last Admin: 11/26/16 07:13 Dose: 1 puff - Labs Labs: 11/26/16 06:26 11/26/16 06:26 PT 13.5 SECONDS (9.7-12.2) H 11/23/16 07:51 INR 1.2 11/23/16 07:51 APTT 32 SECONDS (21-34) 11/23/16 07:51 - Extremities Exam Additional comments: thigh swollen but soft calves soft NT neg homans +ROM ankle/toes sensation intact +DP No visible drainage Assessment and Plan (1) Closed intertrochanteric fracture of left femur Assessment & Plan: POD#3 s/p left hip nail -ortho stable for transfer to rehab -cont PT/OT/OOB -VTE proph -f/u Dr. Okeefe 7-10 days call for appointment [phone] -dressing must be removed on thursday 11/30 and dry sterile dressing applied -WBAT LLE Status: Acute
--- NOTE | 2016-11-26 23:37 | CP.PCM.PN ---
Subjective - Date & Time of Evaluation Date of Evaluation: 11/26/16 Time of Evaluation: 20:00 - Subjective Subjective: Patient complains of mild hip pain. Took a few side steps with PT. Objective - Vital Signs/Intake and Output Vital Signs (last 24 hours): Temp Pulse Resp BP Pulse Ox 98.6 F 114 H 21 120/59 L 100 11/26/16 16:00 11/26/16 16:15 11/26/16 16:15 11/26/16 16:15 11/26/16 16:00 Intake and Output: 11/26/16 11/27/16 18:59 06:59 Intake Total 450 Output Total 245 Balance 205 - Medications Medications: Current Medications Acetaminophen (Tylenol 325mg Tab) 650 mg PO Q6 PRN PRN Reason: Pain, Mild (1-3) Albuterol/Ipratropium (Duoneb 3 Mg/0.5 Mg (3 Ml) Ud) 3 ml INH RQ6 [facility] Last Admin: 11/26/16 19:36 Dose: 3 ml Clopidogrel Bisulfate (Plavix) 75 mg PO DAILY [facility] Last Admin: 11/26/16 09:39 Dose: 75 mg Enoxaparin Sodium (Lovenox) 30 mg SC DAILY [facility] Stop: 12/07/16 23:59 Last Admin: 11/26/16 09:39 Dose: 30 mg Guaifenesin (Robitussin) 200 mg PO Q6 [facility] Last Admin: 11/26/16 17:22 Dose: 200 mg Hydromorphone HCl (Dilaudid) 0.5 mg IVP Q4H PRN PRN Reason: Pain, moderate (4-7) Last Admin: 11/22/16 04:59 Dose: 0.5 mg Piperacillin Sod/Tazobactam Sod (Zosyn 3.375 Gm Iv Premix) 3.375 gm in 50 mls @ 200 mls/hr IVPB Q8H [facility] Last Admin: 11/26/16 17:20 Dose: 200 mls/hr Pantoprazole Sodium (Protonix Ec Tab) 40 mg PO DAILY [facility] Last Admin: 11/26/16 09:39 Dose: 40 mg Rosuvastatin Calcium (Crestor) 5 mg PO HS [facility] Last Admin: 11/25/16 22:06 Dose: 5 mg Fluticasone/Salmeterol (Advair Diskus 250/50) 1 puff INH RQ12 [facility] Last Admin: 11/26/16 19:36 Dose: 1 puff - Labs Labs: 11/26/16 06:26 11/26/16 06:26 PT 13.5 SECONDS (9.7-12.2) H 11/23/16 07:51 INR 1.2 11/23/16 07:51 APTT 32 SECONDS (21-34) 11/23/16 07:51 - Constitutional Appears: No Acute Distress - Head Exam Head Exam: ATRAUMATIC, NORMAL INSPECTION, NORMOCEPHALIC - Eye Exam Eye Exam: EOMI, Normal appearance, PERRL Pupil Exam: NORMAL ACCOMODATION, PERRL - Respiratory Exam Respiratory Exam: Decreased Breath Sounds, Rales, Rhonchi - Cardiovascular Exam Cardiovascular Exam: REGULAR RHYTHM, +S1, +S2. absent: Murmur - GI/Abdominal Exam GI & Abdominal Exam: Soft, Normal Bowel Sounds. absent: Tenderness Assessment and Plan (1) Fall Status: Acute (2) Alcohol abuse Status: Acute (3) Anemia Status: Acute (4) Hip fracture Status: Acute
[2016-11-27] MEDS: Albuterol-Ipratrop 3 mg / 0.5 (3 ml) UD INH SCH ×5 (02:03→19:25)
[2016-11-27] MEDS: HYDROmorphone 0.5 mg/0.5 ml ISec IVP PRN (03:59)
[2016-11-27] MEDS: guaiFENesin 200 mg/10 ml Syrup UD PO SCH ×3 (05:00→17:02)
[2016-11-27] MEDS: Fluticasone-Salmeterol 250-50mcg Diskus INH SCH ×2 (08:02→19:25)
[2016-11-27] MEDS: Pantoprazole 40 mg EC Tab PO SCH (10:00)
[2016-11-27] MEDS: Enoxaparin 30 mg Syringe SC SCH (10:00)
[2016-11-27] MEDS: Piperacill/Tazo 3.375gm in Dex 3.375 GM/50 ML BAG IVPB SCH ×3 (10:00→17:43)
[2016-11-28] MEDS: Albuterol-Ipratrop 3 mg / 0.5 (3 ml) UD INH SCH ×5 (00:52→19:07)
[2016-11-28] MEDS: HYDROmorphone 0.5 mg/0.5 ml ISec IVP PRN ×2 (05:51→10:57)
[2016-11-28] MEDS: Fluticasone-Salmeterol 250-50mcg Diskus INH SCH ×2 (07:21→23:08)
[2016-11-28] MEDS: guaiFENesin 200 mg/10 ml Syrup UD PO SCH ×4 (07:56→17:30)
[2016-11-28] MEDS: Enoxaparin 30 mg Syringe SC SCH (09:35)
[2016-11-28] MEDS: Piperacill/Tazo 3.375gm in Dex 3.375 GM/50 ML BAG IVPB SCH ×3 (09:35→17:23)
[2016-11-28] MEDS: Pantoprazole 40 mg EC Tab PO SCH (09:36)
--- NOTE | 2016-11-28 10:35 | CP.PCM.PN ---
Subjective - Date & Time of Evaluation Date of Evaluation: 11/27/16 Time of Evaluation: 17:00 - Subjective Subjective: Pt is improving, less cough, less shortness of breath, he is in A.Fib but hemodynamically stable, if pt has complication & HR goes up fut=rther we shall consider metoprolol vs cardizem vs digoxin Objective - Vital Signs/Intake and Output Vital Signs (last 24 hours): Temp Pulse Resp BP Pulse Ox 98.7 F 96 H 18 98/49 L 99 11/28/16 07:50 11/28/16 06:00 11/28/16 06:00 11/28/16 03:55 11/28/16 06:00 Intake and Output: 11/28/16 11/28/16 06:59 18:59 Intake Total 500 240 Output Total 450 300 Balance 50 -60 - Medications Medications: Current Medications Acetaminophen (Tylenol 325mg Tab) 650 mg PO Q6 PRN PRN Reason: Pain, Mild (1-3) Albuterol/Ipratropium (Duoneb 3 Mg/0.5 Mg (3 Ml) Ud) 3 ml INH RQ6 [facility] Last Admin: 11/28/16 07:21 Dose: 3 ml Clopidogrel Bisulfate (Plavix) 75 mg PO DAILY [facility] Last Admin: 11/28/16 09:36 Dose: 75 mg Enoxaparin Sodium (Lovenox) 30 mg SC DAILY [facility] Stop: 12/07/16 23:59 Last Admin: 11/28/16 09:35 Dose: 30 mg Guaifenesin (Robitussin) 200 mg PO Q6 [facility] Last Admin: 11/28/16 07:56 Dose: Not Given Hydromorphone HCl (Dilaudid) 0.5 mg IVP Q4H PRN PRN Reason: Pain, moderate (4-7) Last Admin: 11/28/16 05:51 Dose: 0.5 mg Piperacillin Sod/Tazobactam Sod (Zosyn 3.375 Gm Iv Premix) 3.375 gm in 50 mls @ 200 mls/hr IVPB Q8H [facility] Last Admin: 11/28/16 09:35 Dose: 200 mls/hr Pantoprazole Sodium (Protonix Ec Tab) 40 mg PO DAILY [facility] Last Admin: 11/28/16 09:36 Dose: 40 mg Rosuvastatin Calcium (Crestor) 5 mg PO HS [facility] Last Admin: 11/27/16 21:00 Dose: 5 mg Fluticasone/Salmeterol (Advair Diskus 250/50) 1 puff INH RQ12 [facility] Last Admin: 11/28/16 07:21 Dose: 1 puff - Labs Labs: 11/26/16 06:26 11/26/16 06:26 PT 13.5 SECONDS (9.7-12.2) H 11/23/16 07:51 INR 1.2 11/23/16 07:51 APTT 32 SECONDS (21-34) 11/23/16 07:51 - Constitutional Appears: No Acute Distress - Head Exam Head Exam: ATRAUMATIC, NORMAL INSPECTION, NORMOCEPHALIC - Eye Exam Eye Exam: EOMI, Normal appearance, PERRL Pupil Exam: NORMAL ACCOMODATION, PERRL - Respiratory Exam Respiratory Exam: Decreased Breath Sounds - Cardiovascular Exam Cardiovascular Exam: Tachycardia, Irregular Rhythm, +S1, +S2 - GI/Abdominal Exam GI & Abdominal Exam: Soft, Normal Bowel Sounds. absent: Tenderness Assessment and Plan (1) Fall Status: Acute (2) Alcohol abuse Status: Acute (3) Anemia Status: Acute (4) Hip fracture Status: Acute (5) Rapid atrial fibrillation Assessment & Plan: if pt has complication & HR goes up fut=rther we shall consider metoprolol vs cardizem vs digoxin Pt is stable right now Status: Acute
--- NOTE | 2016-11-28 10:36 | CP.PCM.PN ---
Subjective - Date & Time of Evaluation Date of Evaluation: 11/28/16 Time of Evaluation: 09:00 - Subjective Subjective: pt is improving, rapid afib is improving, stable Objective - Vital Signs/Intake and Output Vital Signs (last 24 hours): Temp Pulse Resp BP Pulse Ox 98.7 F 96 H 18 98/49 L 99 11/28/16 07:50 11/28/16 06:00 11/28/16 06:00 11/28/16 03:55 11/28/16 06:00 Intake and Output: 11/28/16 11/28/16 06:59 18:59 Intake Total 500 240 Output Total 450 300 Balance 50 -60 - Medications Medications: Current Medications Acetaminophen (Tylenol 325mg Tab) 650 mg PO Q6 PRN PRN Reason: Pain, Mild (1-3) Albuterol/Ipratropium (Duoneb 3 Mg/0.5 Mg (3 Ml) Ud) 3 ml INH RQ6 [facility] Last Admin: 11/28/16 07:21 Dose: 3 ml Clopidogrel Bisulfate (Plavix) 75 mg PO DAILY [facility] Last Admin: 11/28/16 09:36 Dose: 75 mg Enoxaparin Sodium (Lovenox) 30 mg SC DAILY [facility] Stop: 12/07/16 23:59 Last Admin: 11/28/16 09:35 Dose: 30 mg Guaifenesin (Robitussin) 200 mg PO Q6 [facility] Last Admin: 11/28/16 07:56 Dose: Not Given Hydromorphone HCl (Dilaudid) 0.5 mg IVP Q4H PRN PRN Reason: Pain, moderate (4-7) Last Admin: 11/28/16 05:51 Dose: 0.5 mg Piperacillin Sod/Tazobactam Sod (Zosyn 3.375 Gm Iv Premix) 3.375 gm in 50 mls @ 200 mls/hr IVPB Q8H [facility] Last Admin: 11/28/16 09:35 Dose: 200 mls/hr Pantoprazole Sodium (Protonix Ec Tab) 40 mg PO DAILY [facility] Last Admin: 11/28/16 09:36 Dose: 40 mg Rosuvastatin Calcium (Crestor) 5 mg PO HS [facility] Last Admin: 11/27/16 21:00 Dose: 5 mg Fluticasone/Salmeterol (Advair Diskus 250/50) 1 puff INH RQ12 JULIO Last Admin: 11/28/16 07:21 Dose: 1 puff - Labs Labs: 11/26/16 06:26 11/26/16 06:26 PT 13.5 SECONDS (9.7-12.2) H 11/23/16 07:51 INR 1.2 11/23/16 07:51 APTT 32 SECONDS (21-34) 11/23/16 07:51 - Constitutional Appears: No Acute Distress - Head Exam Head Exam: ATRAUMATIC, NORMAL INSPECTION, NORMOCEPHALIC - Eye Exam Eye Exam: EOMI, Normal appearance, PERRL Pupil Exam: NORMAL ACCOMODATION, PERRL - ENT Exam ENT Exam: Mucous Membranes Moist, Normal Exam - Respiratory Exam Respiratory Exam: Clear to Ausculation Bilateral, NORMAL BREATHING PATTERN - Rectal Exam Rectal Exam: Deferred Assessment and Plan (1) Fall Status: Acute (2) Alcohol abuse Status: Acute (3) Anemia Status: Acute (4) Hip fracture Status: Acute (5) Rapid atrial fibrillation Status: Acute
[2016-11-28 22:33] LABS: RBC URINE 19 /hpf (0-3); URINE BACTERIA OCC (<OCC); URINE BILIRUBIN NEGATIVE (NEGATIVE); URINE BLOOD 1+ (NEGATIVE); URINE COLOR Yellow (YELLOW); URINE GLUCOSE (UA) NORMAL (Normal); URINE KETONE NEGATIVE (NEGATIVE); URINE LEUKOCYTE ESTERASE NEG Leu/uL (Negative); URINE PROTEIN NEGATIVE (NEGATIVE); WBC URINE 5 /hpf (0-5)
[2016-11-29] MEDS: guaiFENesin 200 mg/10 ml Syrup UD PO SCH ×4 (00:03→17:02)
[2016-11-29] MEDS: Piperacill/Tazo 3.375gm in Dex 3.375 GM/50 ML BAG IVPB SCH ×3 (01:11→17:01)
[2016-11-29] MEDS: Albuterol-Ipratrop 3 mg / 0.5 (3 ml) UD INH SCH ×4 (01:35→19:45)
[2016-11-29] MEDS: HYDROmorphone 0.5 mg/0.5 ml ISec IVP PRN ×2 (05:47→14:56)
[2016-11-29] MEDS: Fluticasone-Salmeterol 250-50mcg Diskus INH SCH ×2 (07:57→19:45)
[2016-11-29] MEDS: Pantoprazole 40 mg EC Tab PO SCH (09:10)
[2016-11-29] MEDS: Enoxaparin 30 mg Syringe SC SCH (09:10)
--- NOTE | 2016-11-29 09:56 | RAD ---
Chest x-ray single frontal view History: Fever. Comparison: 11/25/2016 Findings: Dense biapical pleural thickening with upper lobe scarring and granulomatous changes. Prominent consolidative changes at the left lung apex. Scattered ill-defined pleural calcifications and or plaque. Right hilar prominence/mass. Scattered nodular densities throughout both lungs. Diffuse increased interstitial lung markings bilaterally. Tortuous ectatic aorta. Degenerative changes in the spine and shoulders. Impression: Dense biapical pleural thickening with upper lobe scarring and granulomatous changes. Prominent consolidative changes at the left lung apex. Scattered ill-defined pleural calcifications and or plaque. Right hilar prominence/mass. Scattered nodular densities throughout both lungs. Diffuse increased interstitial lung markings bilaterally. Correlation with chest CT may be helpful if clinically indicated.
--- NOTE | 2016-11-29 10:50 | CP.PCM.PN ---
Subjective - Date & Time of Evaluation Date of Evaluation: 11/29/16 Time of Evaluation: 10:46 - Subjective Subjective: Patient still complaining of hip pain, but says it is getting better. Denies CP/ SOB/n/v/numbness/tingling. Objective - Vital Signs/Intake and Output Vital Signs (last 24 hours): Temp Pulse Resp BP Pulse Ox 98.1 F 93 H 18 142/80 99 11/29/16 08:00 11/29/16 08:00 11/29/16 08:00 11/29/16 08:00 11/29/16 08:00 Intake and Output: 11/29/16 11/29/16 06:59 18:59 Intake Total 160 Output Total 600 Balance -440 - Medications Medications: Current Medications Acetaminophen (Tylenol 325mg Tab) 650 mg PO Q6 PRN PRN Reason: Pain, Mild (1-3) Last Admin: 11/28/16 21:21 Dose: 650 mg Albuterol/Ipratropium (Duoneb 3 Mg/0.5 Mg (3 Ml) Ud) 3 ml INH RQ6 [facility] Last Admin: 11/29/16 07:58 Dose: 3 ml Clopidogrel Bisulfate (Plavix) 75 mg PO DAILY [facility] Last Admin: 11/29/16 09:10 Dose: 75 mg Enoxaparin Sodium (Lovenox) 30 mg SC DAILY [facility] Stop: 12/07/16 23:59 Last Admin: 11/29/16 09:10 Dose: 30 mg Guaifenesin (Robitussin) 200 mg PO Q6 [facility] Last Admin: 11/29/16 05:44 Dose: 200 mg Hydromorphone HCl (Dilaudid) 0.5 mg IVP Q4H PRN PRN Reason: Pain, moderate (4-7) Last Admin: 11/29/16 05:47 Dose: 0.5 mg Piperacillin Sod/Tazobactam Sod (Zosyn 3.375 Gm Iv Premix) 3.375 gm in 50 mls @ 200 mls/hr IVPB Q8H [facility] Last Admin: 11/29/16 09:10 Dose: 200 mls/hr Pantoprazole Sodium (Protonix Ec Tab) 40 mg PO DAILY [facility] Last Admin: 11/29/16 09:10 Dose: 40 mg Rosuvastatin Calcium (Crestor) 5 mg PO HS [facility] Last Admin: 11/28/16 21:21 Dose: 5 mg Fluticasone/Salmeterol (Advair Diskus 250/50) 1 puff INH RQ12 [facility] Last Admin: 11/29/16 07:57 Dose: Not Given - Labs Labs: 11/26/16 06:26 11/26/16 06:26 PT 13.5 SECONDS (9.7-12.2) H 11/23/16 07:51 INR 1.2 11/23/16 07:51 APTT 32 SECONDS (21-34) 11/23/16 07:51 - Extremities Exam Additional comments: Left hip: incisions intact, no erythema, dressing changed, small amount sang drainage as expected. +ROM ankle/toes, sensation intact, +Dp pulse, calves soft NT neg homans +venodynes Assessment and Plan (1) Closed intertrochanteric fracture of left femur Assessment & Plan: POD#6 s/p left hip IM nail -orthopedically stable for d/c to rehab -PT/OT/OOB daily -WBAT -f/u Dr. Okeefe 7-10 days upon d/c in office -cont VTE proph Status: Acute
[2016-11-29] MEDS ORDERED: Metoprolol 1 mg/ml Inj IVP ONE (16:00)
--- NOTE | 2016-11-29 22:05 | CP.PCM.PN ---
Subjective - Date & Time of Evaluation Date of Evaluation: 11/29/16 Time of Evaluation: 21:00 - Subjective Subjective: pt seen and examined, pt has fever, but all workup was neg, no diarrhea, urinarry symptoms, he is feeling better Objective - Vital Signs/Intake and Output Vital Signs (last 24 hours): Temp Pulse Resp BP Pulse Ox 98.4 F 108 H 16 90/50 L 99 11/29/16 20:49 11/29/16 20:49 11/29/16 20:49 11/29/16 20:49 11/29/16 08:00 Intake and Output: 11/29/16 11/30/16 18:59 06:59 Intake Total 950 Output Total 850 Balance 100 - Medications Medications: Current Medications Acetaminophen (Tylenol 325mg Tab) 650 mg PO Q6 PRN PRN Reason: Pain, Mild (1-3) Last Admin: 11/28/16 21:21 Dose: 650 mg Albuterol/Ipratropium (Duoneb 3 Mg/0.5 Mg (3 Ml) Ud) 3 ml INH RQ6 [facility] Last Admin: 11/29/16 19:45 Dose: 3 ml Clopidogrel Bisulfate (Plavix) 75 mg PO DAILY [facility] Last Admin: 11/29/16 09:10 Dose: 75 mg Enoxaparin Sodium (Lovenox) 30 mg SC DAILY [facility] Stop: 12/07/16 23:59 Last Admin: 11/29/16 09:10 Dose: 30 mg Guaifenesin (Robitussin) 200 mg PO Q6 [facility] Last Admin: 11/29/16 17:02 Dose: Not Given Hydromorphone HCl (Dilaudid) 0.5 mg IVP Q4H PRN PRN Reason: Pain, moderate (4-7) Last Admin: 11/29/16 14:56 Dose: 0.5 mg Piperacillin Sod/Tazobactam Sod (Zosyn 3.375 Gm Iv Premix) 3.375 gm in 50 mls @ 200 mls/hr IVPB Q8H [facility] Last Admin: 11/29/16 17:01 Dose: 200 mls/hr Pantoprazole Sodium (Protonix Ec Tab) 40 mg PO DAILY [facility] Last Admin: 11/29/16 09:10 Dose: 40 mg Rosuvastatin Calcium (Crestor) 5 mg PO HS [facility] Last Admin: 11/28/16 21:21 Dose: 5 mg Fluticasone/Salmeterol (Advair Diskus 250/50) 1 puff INH RQ12 [facility] Last Admin: 11/29/16 19:45 Dose: Not Given - Labs Labs: 11/26/16 06:26 11/26/16 06:26 PT 13.5 SECONDS (9.7-12.2) H 11/23/16 07:51 INR 1.2 11/23/16 07:51 APTT 32 SECONDS (21-34) 11/23/16 07:51 - Constitutional Appears: No Acute Distress - Head Exam Head Exam: ATRAUMATIC, NORMAL INSPECTION, NORMOCEPHALIC - Eye Exam Eye Exam: EOMI, Normal appearance, PERRL Pupil Exam: NORMAL ACCOMODATION, PERRL - Cardiovascular Exam Cardiovascular Exam: REGULAR RHYTHM, +S1, +S2. absent: Murmur - GI/Abdominal Exam GI & Abdominal Exam: Soft, Normal Bowel Sounds. absent: Tenderness Assessment and Plan (1) Fall Status: Acute (2) Alcohol abuse Status: Acute (3) Anemia Status: Acute (4) Hip fracture Status: Acute (5) Rapid atrial fibrillation Status: Acute (6) Fever Assessment & Plan: pt is already on cefepime tykenol expectorant Status: Acute
--- NOTE | 2016-11-29 22:43 | CARD ---
APPROVED REPORT EKG Measurement Heart [id number] <Conclusion> Atrial fibrillation Nonspecific ST and T wave abnormality Abnormal ECG
[2016-11-29 23:25] VITALS: RESP 20
[2016-11-30] MEDS: Piperacill/Tazo 3.375gm in Dex 3.375 GM/50 ML BAG IVPB SCH ×3 (00:36→16:01)
[2016-11-30] MEDS: HYDROmorphone 0.5 mg/0.5 ml ISec IVP PRN ×5 (00:36→21:16)
[2016-11-30] MEDS: guaiFENesin 200 mg/10 ml Syrup UD PO SCH ×4 (00:43→17:20)
[2016-11-30] MEDS: Albuterol-Ipratrop 3 mg / 0.5 (3 ml) UD INH SCH ×4 (01:14→20:21)
[2016-11-30 06:48] LABS: BASO % 0.4 % (0.0-2.0); EOS # 0.3 K/uL (0.0-0.7); EOS % 4.3 % (0.0-4.0); HEMATOCRIT 27.7 % (35.0-51.0); LYMPH % 16.8 % (20.0-40.0); MEAN CELL VOLUME 79.6 fL (80.0-94.0); MEAN PLATELET VOLUME 6.9 fL (7.2-11.7); MONO # 0.6 K/uL (0.0-0.8); MONO % 9.6 % (0.0-10.0); RED CELL DISTRIBUTION WIDTH 20.7 % (11.5-14.5); WHITE BLOOD COUNT 6.1 K/uL (4.8-10.8)
[2016-11-30 06:56] LABS: INR 1.4
[2016-11-30 06:57] LABS: ALB/GLOB RATIO 0.9 (1.0-2.1); ALKALINE PHOSPHATASE 73 U/L (38-126); ALT/SGPT 32 U/L (21-72); AST/SGOT 33 U/L (17-59); BILIRUBIN,TOTAL 1.2 mg/dL (0.2-1.3); BLOOD UREA NITROGEN 8 mg/dL (9-20); CALCIUM 7.6 mg/dl (8.6-10.4); CARBON DIOXIDE 23 mmol/L (22-30); CHLORIDE 96 mmol/L (98-107); GFR AFRICAN-AMERICAN > 60; GLUCOSE,RANDOM 81 mg/dL (75-110); SODIUM 126 mmol/L (132-148); TOTAL PROTEIN 4.9 g/dL (6.3-8.3)
[2016-11-30] MEDS: Fluticasone-Salmeterol 250-50mcg Diskus INH SCH ×2 (09:20→20:20)
[2016-11-30] MEDS: Enoxaparin 30 mg Syringe SC SCH (09:21)
[2016-11-30] MEDS: Pantoprazole 40 mg EC Tab PO SCH (09:22)
--- NOTE | 2016-11-30 09:41 | CP.PCM.PN ---
Subjective - Date & Time of Evaluation Date of Evaluation: 11/30/16 Time of Evaluation: 09:39 - Subjective Subjective: Patient says hip pain is controlled, improving. Encouraged PT and OOBTC. Denies CP/SOB/dizziness. Objective - Vital Signs/Intake and Output Vital Signs (last 24 hours): Temp Pulse Resp BP Pulse Ox 99.6 F 108 H 20 121/68 96 11/29/16 23:19 11/30/16 05:34 11/29/16 23:19 11/30/16 05:34 11/29/16 23:19 Intake and Output: 11/30/16 11/30/16 06:59 18:59 Intake Total 1070 Output Total 1150 300 Balance -80 -300 - Medications Medications: Current Medications Acetaminophen (Tylenol 325mg Tab) 650 mg PO Q6 PRN PRN Reason: Pain, Mild (1-3) Last Admin: 11/28/16 21:21 Dose: 650 mg Albuterol/Ipratropium (Duoneb 3 Mg/0.5 Mg (3 Ml) Ud) 3 ml INH RQ6 [facility] Last Admin: 11/30/16 07:27 Dose: 3 ml Clopidogrel Bisulfate (Plavix) 75 mg PO DAILY [facility] Last Admin: 11/30/16 09:22 Dose: 75 mg Enoxaparin Sodium (Lovenox) 30 mg SC DAILY [facility] Stop: 12/07/16 23:59 Last Admin: 11/30/16 09:21 Dose: 30 mg Guaifenesin (Robitussin) 200 mg PO Q6 [facility] Last Admin: 11/30/16 05:40 Dose: Not Given Hydromorphone HCl (Dilaudid) 0.5 mg IVP Q4H PRN PRN Reason: Pain, moderate (4-7) Last Admin: 11/30/16 05:36 Dose: 0.5 mg Piperacillin Sod/Tazobactam Sod (Zosyn 3.375 Gm Iv Premix) 3.375 gm in 50 mls @ 200 mls/hr IVPB Q8H [facility] Last Admin: 11/30/16 00:36 Dose: 200 mls/hr Pantoprazole Sodium (Protonix Ec Tab) 40 mg PO DAILY [facility] Last Admin: 11/30/16 09:22 Dose: 40 mg Rosuvastatin Calcium (Crestor) 5 mg PO HS [facility] Last Admin: 11/29/16 22:34 Dose: 5 mg Fluticasone/Salmeterol (Advair Diskus 250/50) 1 puff INH RQ12 [facility] Last Admin: 11/30/16 09:20 Dose: 1 puff - Labs Labs: 11/30/16 06:33 11/30/16 06:33 PT 16.2 SECONDS (9.7-12.2) H 11/30/16 06:33 INR 1.4 11/30/16 06:33 APTT 35 SECONDS (21-34) H 11/30/16 06:33 - Extremities Exam Additional comments: +ROM ankle/toes, sensation intact, calves soft NT neg homans, incisions intact, no erythema Assessment and Plan (1) Closed intertrochanteric fracture of left femur Assessment & Plan: POD#7 s/p left hip IM nailing -orthopedically stable for d/c to rehab -patient needs PT daily, must be out of bed more -VTE proph -venodynes -f/u 7-[address] Okeefe as outpatient call for appointment [phone] d/w Dr. Okeefe, agrees with above Status: Acute
--- NOTE | 2016-11-30 22:59 | CP.PCM.PN ---
Subjective - Date & Time of Evaluation Date of Evaluation: 11/30/16 Time of Evaluation: 09:50 - Subjective Subjective: Patient says hip pain is controlled, improving. Encouraged PT and OOBTC. Denies CP/SOB/dizziness. Objective - Vital Signs/Intake and Output Vital Signs (last 24 hours): Temp Pulse Resp BP Pulse Ox 97.7 F 116 H 20 129/71 96 11/30/16 20:07 11/30/16 16:16 11/30/16 16:16 11/30/16 16:16 11/30/16 16:16 Intake and Output: 11/30/16 12/01/16 18:59 06:59 Intake Total 350 Output Total 300 Balance 50 - Medications Medications: Current Medications Acetaminophen (Tylenol 325mg Tab) 650 mg PO Q6 PRN PRN Reason: Pain, Mild (1-3) Last Admin: 11/30/16 16:01 Dose: 650 mg Clopidogrel Bisulfate (Plavix) 75 mg PO DAILY [facility] Last Admin: 11/30/16 09:22 Dose: 75 mg Enoxaparin Sodium (Lovenox) 30 mg SC DAILY [facility] Stop: 12/07/16 23:59 Last Admin: 11/30/16 09:21 Dose: 30 mg Guaifenesin (Robitussin) 200 mg PO Q6 [facility] Last Admin: 11/30/16 17:20 Dose: Not Given Hydromorphone HCl (Dilaudid) 0.5 mg IVP Q4H PRN PRN Reason: Pain, moderate (4-7) Last Admin: 11/30/16 21:16 Dose: 0.5 mg Piperacillin Sod/Tazobactam Sod (Zosyn 3.375 Gm Iv Premix) 3.375 gm in 50 mls @ 200 mls/hr IVPB Q8H [facility] Last Admin: 11/30/16 16:01 Dose: 200 mls/hr Pantoprazole Sodium (Protonix Ec Tab) 40 mg PO DAILY [facility] Last Admin: 11/30/16 09:22 Dose: 40 mg Rosuvastatin Calcium (Crestor) 5 mg PO HS [facility] Last Admin: 11/30/16 21:16 Dose: 5 mg Fluticasone/Salmeterol (Advair Diskus 250/50) 1 puff INH RQ12 [facility] Last Admin: 11/30/16 20:20 Dose: 1 puff - Labs Labs: 11/30/16 06:33 11/30/16 06:33 PT 16.2 SECONDS (9.7-12.2) H 11/30/16 06:33 INR 1.4 11/30/16 06:33 APTT 35 SECONDS (21-34) H 11/30/16 06:33 - Constitutional Appears: No Acute Distress - Eye Exam Eye Exam: EOMI, Normal appearance, PERRL Pupil Exam: NORMAL ACCOMODATION, PERRL - Respiratory Exam Respiratory Exam: Clear to Ausculation Bilateral, NORMAL BREATHING PATTERN - Cardiovascular Exam Cardiovascular Exam: REGULAR RHYTHM, +S1, +S2. absent: Murmur - GI/Abdominal Exam GI & Abdominal Exam: Soft, Normal Bowel Sounds. absent: Tenderness Assessment and Plan (1) Fall Status: Acute (2) Alcohol abuse Status: Acute (3) Anemia Status: Acute (4) Hip fracture Status: Acute (5) Rapid atrial fibrillation Status: Acute
[2016-12-01] MEDS: guaiFENesin 200 mg/10 ml Syrup UD PO SCH ×3 (00:31→13:00)
[2016-12-01] MEDS: Piperacill/Tazo 3.375gm in Dex 3.375 GM/50 ML BAG IVPB SCH ×2 (01:06→09:00)
[2016-12-01] MEDS: HYDROmorphone 0.5 mg/0.5 ml ISec IVP PRN (06:44)
[2016-12-01] MEDS: Fluticasone-Salmeterol 250-50mcg Diskus INH SCH (07:31)
[2016-12-01] MEDS: Pantoprazole 40 mg EC Tab PO SCH (10:03)
[2016-12-01] MEDS: Enoxaparin 30 mg Syringe SC SCH (10:05)
[2016-12-01 10:53] VITALS: O2SAT 96
[2016-12-01] MEDS: Oxycodone/Acetaminophen 5/325 mg Tab PO PRN ×2 (10:57→19:29)
--- NOTE | 2016-12-01 12:14 | CP.PCM.PN ---
Subjective - Date & Time of Evaluation Date of Evaluation: 12/01/16 Time of Evaluation: 12:11 - Subjective Subjective: Patient complaining of hip pain. Denies CP/SOB/dizziness/numbness/tingling Objective - Vital Signs/Intake and Output Vital Signs (last 24 hours): Temp Pulse Resp BP Pulse Ox 98.8 F 112 H 20 135/78 96 12/01/16 07:07 12/01/16 07:07 12/01/16 07:07 12/01/16 07:07 12/01/16 07:07 Intake and Output: 12/01/16 12/01/16 06:59 18:59 Intake Total 100 Balance 100 - Medications Medications: Current Medications Acetaminophen (Tylenol 325mg Tab) 650 mg PO Q6 PRN PRN Reason: Pain, Mild (1-3) Last Admin: 11/30/16 16:01 Dose: 650 mg Bacitracin (Bacitracin) 1 gm TOP DAILY [facility] Clopidogrel Bisulfate (Plavix) 75 mg PO DAILY [facility] Last Admin: 12/01/16 10:02 Dose: 75 mg Enoxaparin Sodium (Lovenox) 30 mg SC DAILY [facility] Stop: 12/07/16 23:59 Last Admin: 12/01/16 10:05 Dose: 30 mg Guaifenesin (Robitussin) 200 mg PO Q6 [facility] Last Admin: 12/01/16 06:35 Dose: Not Given Hydromorphone HCl (Dilaudid) 0.5 mg IVP Q4H PRN PRN Reason: Pain, moderate (4-7) Last Admin: 12/01/16 06:44 Dose: 0.5 mg Piperacillin Sod/Tazobactam Sod (Zosyn 3.375 Gm Iv Premix) 3.375 gm in 50 mls @ 200 mls/hr IVPB Q8H [facility] Last Admin: 12/01/16 09:00 Dose: 200 mls/hr Oxycodone/Acetaminophen (Percocet 5/325 Mg Tab) 2 tab PO Q4H PRN PRN Reason: Pain, severe (8-10) Stop: 12/04/16 10:28 Last Admin: 12/01/16 10:57 Dose: 2 tab Pantoprazole Sodium (Protonix Ec Tab) 40 mg PO DAILY [facility] Last Admin: 12/01/16 10:03 Dose: 40 mg Rosuvastatin Calcium (Crestor) 5 mg PO HS [facility] Last Admin: 11/30/16 21:16 Dose: 5 mg Fluticasone/Salmeterol (Advair Diskus 250/50) 1 puff INH RQ12 [facility] Last Admin: 12/01/16 07:31 Dose: 1 puff - Labs Labs: 11/30/16 06:33 11/30/16 06:33 PT 16.2 SECONDS (9.7-12.2) H 11/30/16 06:33 INR 1.4 11/30/16 06:33 APTT 35 SECONDS (21-34) H 11/30/16 06:33 - Extremities Exam Additional comments: Pt in no acute distress. +ROM ankel/toes, senation intact, incisions dry intact , no erythema, new sterile dressing applied. Calves soft NT neg homans . Left elbow: 2x1cm superficial abrasion, no erythema, bacitracin orderedc Assessment and Plan (1) Closed intertrochanteric fracture of left femur Assessment & Plan: POD#8 s/p left hip IM nail -patient must spend more time out of bed, patient is deconditioned, explained to patient and RNs -ortho stable for d/c to rehab -PT/OT/OOB -cont VTE proph -f/u Dr. Okeefe 7-10 days call for appointment Status: Acute
[2016-12-01] MEDS ORDERED: Bacitracin Ointment 30 GM TUBE TOP SCH (12:15)
[2016-12-01 14:19] LABS: BASO # 0.1 K/uL (0.0-0.2); BASO % 1.1 % (0.0-2.0); EOS % 0.3 % (0.0-4.0); HEMATOCRIT 27.4 % (35.0-51.0); LYMPH # 0.7 K/uL (1.0-4.3); LYMPH % 7.4 % (20.0-40.0); MEAN CELL VOLUME 79.8 fL (80.0-94.0); MEAN CORPUSCULAR HEMOGLOBIN 26.7 pg (27.0-31.0); MEAN CORPUSCULAR HGB CONC 33.5 g/dL (33.0-37.0); MONO # 0.6 K/uL (0.0-0.8); PLATELET COUNT 429 K/uL (130-400); RED CELL DISTRIBUTION WIDTH 20.6 % (11.5-14.5)
[2016-12-01 14:35] LABS: CALCIUM 7.3 mg/dl (8.6-10.4)
[2016-12-01 14:43] LABS: EOSINOPHIL 1 % (0-4); NEUTROPHIL 87 % (50-75); TOTAL CELLS COUNTED 100
--- NOTE | 2016-12-01 15:39 | CP.PCM.PN ---
Subjective - Date & Time of Evaluation Date of Evaluation: 12/01/16 Time of Evaluation: 12:20 - Subjective Subjective: Pt seen and examined today awake, alert, oriented , denies any chest pain, sob , dizziness, N/V /D a febrile Hgb - stable Objective - Vital Signs/Intake and Output Vital Signs (last 24 hours): Temp Pulse Resp BP Pulse Ox 98.8 F 112 H 20 135/78 96 12/01/16 07:07 12/01/16 07:07 12/01/16 07:07 12/01/16 07:07 12/01/16 07:07 Intake and Output: 12/01/16 12/01/16 06:59 18:59 Intake Total 150 Balance 150 - Medications Medications: Current Medications Acetaminophen (Tylenol 325mg Tab) 650 mg PO Q6 PRN PRN Reason: Pain, Mild (1-3) Last Admin: 11/30/16 16:01 Dose: 650 mg Bacitracin (Bacitracin) 0 gm TOP DAILY [facility] Last Admin: 12/01/16 13:15 Dose: 1 applic Clopidogrel Bisulfate (Plavix) 75 mg PO DAILY [facility] Last Admin: 12/01/16 10:02 Dose: 75 mg Enoxaparin Sodium (Lovenox) 30 mg SC DAILY [facility] Stop: 12/07/16 23:59 Last Admin: 12/01/16 10:05 Dose: 30 mg Guaifenesin (Robitussin) 200 mg PO Q6 [facility] Last Admin: 12/01/16 13:00 Dose: Not Given Hydromorphone HCl (Dilaudid) 0.5 mg IVP Q4H PRN PRN Reason: Pain, moderate (4-7) Last Admin: 12/01/16 06:44 Dose: 0.5 mg Piperacillin Sod/Tazobactam Sod (Zosyn 3.375 Gm Iv Premix) 3.375 gm in 50 mls @ 200 mls/hr IVPB Q8H [facility] Last Admin: 12/01/16 09:00 Dose: 200 mls/hr Oxycodone/Acetaminophen (Percocet 5/325 Mg Tab) 2 tab PO Q4H PRN PRN Reason: Pain, severe (8-10) Stop: 12/04/16 10:28 Last Admin: 12/01/16 10:57 Dose: 2 tab Pantoprazole Sodium (Protonix Ec Tab) 40 mg PO DAILY [facility] Last Admin: 12/01/16 10:03 Dose: 40 mg Rosuvastatin Calcium (Crestor) 5 mg PO HS [facility] Last Admin: 11/30/16 21:16 Dose: 5 mg Fluticasone/Salmeterol (Advair Diskus 250/50) 1 puff INH RQ12 [facility] Last Admin: 12/01/16 07:31 Dose: 1 puff - Labs Labs: 12/01/16 14:04 12/01/16 14:06 PT 16.2 SECONDS (9.7-12.2) H 11/30/16 06:33 INR 1.4 11/30/16 06:33 APTT 35 SECONDS (21-34) H 11/30/16 06:33 - Constitutional Appears: Well, No Acute Distress - Respiratory Exam Respiratory Exam: Decreased Breath Sounds, NORMAL BREATHING PATTERN - Cardiovascular Exam Cardiovascular Exam: Tachycardia, REGULAR RHYTHM, +S1, +S2 - Neurological Exam Neurological Exam: Alert, Awake, Oriented x3 Assessment and Plan - Assessment and Plan (Free Text) Assessment: 81 yr old male with PMHX of COPD admitted for L hip fx, intertrochanteric, s/ p fall at home s/p left hip IM nail POD#8 s/p PRBC transfusion H& H- stable - seen by ortho , cleared for discharge to rehab from ortho standpoint and f/u with Dr. Okeefe office in 10 days D/W Dr. Moody, stable for discharge home today and Dr. Rollins will follow the patient at rehab Discharge plan discussed with patient , who understands and agrees with plan
[2016-12-01 17:09] VITALS: BP 114/67; PULSE 91; TEMP 98.2
[2016-12-01] MEDS ORDERED: Influenza Virus Vaccine 45 mcg/0.5 ml Syr IM ONE (17:49)
--- NOTE | 2016-12-01 17:49 | CT ---
CT chest without IV contrast Indication: r/o pneumonia abnormal cxr Technique: Contiguous axial images were obtained through the chest without intravenous contrast enhancement. Sagittal and coronal reconstructions were generated and reviewed. This CT exam was performed using 1 or more of the falling dose reduction techniques: Automated exposure control, adjustment of the MAA and/or kV according to patient size, and/or use of iterative reconstruction technique. Radiation dose (DLP): 424.86 MGy-cm. Comparison: Chest x-ray performed 11/28/16 Findings: Visualized portions of the inferior thyroid gland appear unremarkable. The unenhanced mediastinal and hilar vascular structures appear grossly unremarkable. The heart appears within normal limits of size. Dense coronary artery calcifications. Evaluation for adenopathy is limited by lack of IV contrast, in particular hilar adenopathy. Sub cm mediastinal nodes, nonspecific. Biapical scarring/ fibrosis. Emphysematous changes. Nodular tree-in-bud like opacity within the posterior right upper lobe. Subtle regions of ground-glass attenuation scattered bilaterally. No focal consolidation. Small bilateral pleural effusion. No pneumothorax. 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 Moderate-sized hiatal hernia/distal esophageal wall thickening. Limited visualization of the noncontrast upper abdomen appears grossly unremarkable. Osseous demineralization. Degenerative changes. Scoliosis. Kyphosis. Numerous compression fracture deformities (at least 3 - T12, T10 and T6). Impression: Biapical scarring/ fibrosis. Emphysematous changes. Nodular tree-in-bud like opacity within the posterior right upper lobe. Subtle regions of ground-glass attenuation scattered bilaterally, possibly infectious or inflammatory. Small bilateral pleural effusions. 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 Dense coronary artery calcifications. Moderate-sized hiatal hernia/distal esophageal wall thickening. Osseous demineralization. Degenerative changes. Scoliosis. Kyphosis. Numerous compression fracture deformities (at least 3 - T12, T10 and T6).
--- NOTE | 2016-12-01 22:42 | CP.PCM.DIS ---
Provider - Provider Date of Admission: 11/20/16 13:17 Attending physician: Jaxon Rollins MD Time Spent in preparation of Discharge (in minutes): 45 Diagnosis - Discharge Diagnosis (1) Fall Status: Acute (2) Alcohol abuse Status: Acute (3) Anemia Status: Acute (4) Hip fracture Status: Acute (5) Rapid atrial fibrillation Status: Acute Hospital Course - Lab Results Lab Results: Micro Results 11/28/16 21:30 Blood-Venous Blood Culture - Preliminary NO GROWTH AFTER 3 DAYS 11/28/16 21:00 Blood-Venous Blood Culture - Preliminary NO GROWTH AFTER 3 DAYS 11/28/16 21:04 Urine,Clean Catch Urine Culture - Final No Growth (<1,000 CFU/ML) 11/23/16 21:25 Naris MRSA Culture (Admit) - Final MRSA NOT DETECTED Most Recent Lab Values WBC 9.0 K/uL (4.8-10.8) 12/01/16 14:04 RBC 3.43 Mil/uL (4.40-5.90) L 12/01/16 14:04 Hgb 9.2 g/dL (12.0-18.0) L 12/01/16 14:04 Hct 27.4 % (35.0-51.0) L 12/01/16 14:04 MCV 79.8 fL (80.0-94.0) L 12/01/16 14:04 MCH 26.7 pg (27.0-31.0) L 12/01/16 14:04 MCHC 33.5 g/dL (33.0-37.0) 12/01/16 14:04 RDW 20.6 % (11.5-14.5) H 12/01/16 14:04 Plt Count 429 K/uL (130-400) H 12/01/16 14:04 MPV 7.0 fL (7.2-11.7) L 12/01/16 14:04 Neut % (Auto) 84.2 % (50.0-75.0) H 12/01/16 14:04 Lymph % (Auto) 7.4 % (20.0-40.0) L 12/01/16 14:04 [place] % (Auto) 7.0 % (0.0-10.0) 12/01/16 14:04 Eos % (Auto) 0.3 % (0.0-4.0) 12/01/16 14:04 Baso % (Auto) 1.1 % (0.0-2.0) 12/01/16 14:04 Neut # 7.5 K/uL (1.8-7.0) H 12/01/16 14:04 Lymph # 0.7 K/uL (1.0-4.3) L 12/01/16 14:04 [place] # 0.6 K/uL (0.0-0.8) 12/01/16 14:04 Eos # 0.0 K/uL (0.0-0.7) 12/01/16 14:04 Baso # 0.1 K/uL (0.0-0.2) 12/01/16 14:04 Neutrophils % (Manual) 87 % (50-75) H 12/01/16 14:04 Band Neutrophils % 13 % (0-2) H* 11/24/16 06:05 Lymphocytes % (Manual) 7 % (20-40) L 12/01/16 14:04 Monocytes % (Manual) 5 % (0-10) 12/01/16 14:04 Eosinophils % (Manual) 1 % (0-4) 12/01/16 14:04 Hypersegmented Polys Present 11/23/16 20:36 Smudge Cells Present 11/23/16 20:36 Toxic Granulation Present 11/23/16 20:36 Platelet Estimate Slightly increased (NORMAL) H 12/01/16 14:04 Large Platelets Present 11/23/16 20:36 Polychromasia Slight 11/23/16 20:36 Hypochromasia (manual) Slight 12/01/16 14:04 Poikilocytosis (manual Slight 11/24/16 06:05 Anisocytosis (manual) Slight 12/01/16 14:04 Microcytosis (manual) Slight 11/24/16 06:05 Macrocytosis (manual) Slight 11/22/16 11:19 Tear Drop Cells Slight 11/24/16 06:05 Ovalocytes Slight 11/24/16 06:05 [place] Cells Slight 11/24/16 06:05 PT 16.2 SECONDS (9.7-12.2) H 11/30/16 06:33 INR 1.4 11/30/16 06:33 APTT 35 SECONDS (21-34) H 11/30/16 06:33 Sodium 130 mmol/L (132-148) L 12/01/16 14:06 Potassium 4.0 mmol/L (3.6-5.2) 12/01/16 14:06 Chloride 95 mmol/L (98-107) L 12/01/16 14:06 Carbon Dioxide 23 mmol/L (22-30) 12/01/16 14:06 Anion Gap 16 (10-20) 12/01/16 14:06 BUN 17 mg/dL (9-20) 12/01/16 14:06 Creatinine 1.7 MG/DL (0.8-1.5) H 12/01/16 14:06 Est GFR ( Amer) 47 12/01/16 14:06 Est GFR (Non-Af Amer) 39 12/01/16 14:06 POC Glucose (mg/dL) 127 mg/dL (65-110) H 11/28/16 11:43 Random Glucose 100 mg/dL (75-110) 12/01/16 14:06 Calcium 7.3 mg/dl (8.6-10.4) L 12/01/16 14:06 Phosphorus 2.4 mg/dL (2.5-4.5) L 11/24/16 06:05 Magnesium 1.6 mg/dL (1.6-2.3) 11/24/16 06:05 Total Bilirubin 1.2 mg/dL (0.2-1.3) 11/30/16 06:33 AST 33 U/L (17-59) 11/30/16 06:33 ALT 32 U/L (21-72) 11/30/16 06:33 Alkaline Phosphatase 73 U/L (38-126) 11/30/16 06:33 Total Creatine Kinase 226 U/L (55-170) H 11/24/16 15:44 CK-MB (Mass) 2.35 ng/mL (0.0-3.38) 11/24/16 15:44 Troponin I < 0.0120 ng/mL (0.00-0.120) 11/24/16 06:05 Troponin I, Quant 0.0160 ng/mL (0.00-0.120) 11/24/16 15:44 NT-Pro-B Natriuret Pep 817 pg/mL (0-900) 11/20/16 12:27 Total Protein 4.9 g/dL (6.3-8.3) L 11/30/16 06:33 Albumin 2.3 g/dL (3.5-5.0) L 11/30/16 06:33 Globulin 2.7 gm/dL (2.2-3.9) 11/30/16 06:33 Albumin/Globulin Ratio 0.9 (1.0-2.1) L 11/30/16 06:33 Urine Color Yellow (YELLOW) 11/28/16 22:03 Urine Clarity Clear (Clear) 11/28/16 22:03 Urine pH 7.0 (5.0-8.0) 11/28/16 22:03 Ur Specific [place] 1.016 (1.003-1.030) 11/28/16 22:03 Urine Protein Negative mg/dL (NEGATIVE) 11/28/16 22:03 Urine Glucose (UA) Normal mg/dL (Normal) 11/28/16 22:03 Urine Ketones Negative mg/dL (NEGATIVE) 11/28/16 22:03 Urine Blood 1+ (NEGATIVE) H 11/28/16 22:03 Urine Nitrate Negative (NEGATIVE) 11/28/16 22:03 Urine Bilirubin Negative (NEGATIVE) 11/28/16 22:03 Urine Urobilinogen 4.0 mg/dL (0.2-1.0) 11/28/16 22:03 Ur Leukocyte Esterase Neg [place]/uL (Negative) 11/28/16 22:03 Urine WBC (Auto) 5 /hpf (0-5) 11/28/16 22:03 Urine RBC (Auto) 19 /hpf (0-3) H 11/28/16 22:03 Ur Squamous Epith Cells < 1 /hpf (0-5) 11/28/16 22:03 Urine Bacteria Occ (<OCC) H 11/28/16 22:03 Hyaline Casts 11-20 /lpf (0-2) H 11/21/16 21:50 Stool Occult Blood Negative (NEGATIVE) 11/20/16 15:57 Urine Opiates Screen Positive (NEGATIVE) 11/21/16 21:50 Urine Methadone Screen Negative (NEGATIVE) 11/21/16 21:50 Ur Barbiturates Screen Negative (NEGATIVE) 11/21/16 21:50 Ur Phencyclidine Scrn Negative (NEGATIVE) 11/21/16 21:50 Ur Amphetamines Screen Negative (NEGATIVE) 11/21/16 21:50 U Benzodiazepines Scrn Negative (NEGATIVE) 11/21/16 21:50 U Oth Cocaine Metabols Negative (NEGATIVE) 11/21/16 21:50 U Cannabinoids Screen Negative (NEGATIVE) 11/21/16 21:50 Alcohol, Quantitative < 10 mg/dl (0-10) 11/20/16 12:27 Blood Type O POSITIVE 11/23/16 07:51 Antibody Screen Negative 11/23/16 07:51 - Hospital Course Hospital Course: 81 yr old male with PMHX of COPD admitted for L hip fx, intertrochanteric, s/ p fall at home s/p left hip IM nail POD#8 s/p PRBC transfusion H& H- stable - seen by ortho , cleared for discharge to rehab from ortho standpoint and f/u with Dr. Okeefe office in 10 days stable for discharge home today and I will follow the patient at rehab Discharge plan discussed with patient , who understands and agrees with plan Discharge Exam - Head Exam Head Exam: ATRAUMATIC, NORMAL INSPECTION, NORMOCEPHALIC - Eye Exam Eye Exam: EOMI, Normal appearance, PERRL Pupil Exam: NORMAL ACCOMODATION, PERRL - ENT Exam ENT Exam: Mucous Membranes Moist - Respiratory Exam Respiratory Exam: Clear to PA & Lateral, NORMAL BREATHING PATTERN - Cardiovascular Exam Cardiovascular Exam: REGULAR RHYTHM, +S1, +S2 - GI/Abdominal Exam GI & Abdominal Exam: Normal Bowel Sounds - Neurological Exam Neurological exam: Alert, CN II-XII Intact, Normal Gait, Oriented x3, Reflexes Normal - Psychiatric Exam Psychiatric exam: Normal Affect, Normal Mood - Skin Skin Exam: Dry, Intact, Normal Color, Warm Discharge Plan - Discharge Medications Prescriptions: Amoxicillin/Clavulanate [Augmentin 875 MG-125 MG] 1 tab PO Q12 #10 tab - Follow Up Plan Condition: GOOD Disposition: TRANSF TO SNF Instructions: Atrial Fibrillation (DC), Hyponatremia (DC), Chronic Hypertension (DC), Anemia (DC), Hip Fracture (GEN) Additional Instructions: Please admit patient under Dr. Rollins service - Call Dr. Rollins upon Patient arrival to the facility PLEASE F/U WITH DR. OKEEFE OFFICE IN 10 DAYS - CALL AND MAKE APPOINTMENT continue medication as per Med Rec. PLEASE REPEAT CBC, BMP TUESDAY AND Q TUESDAY Referrals: Fabio Okeefe MD [Staff Provider] - Jaxon Rollins MD [Staff Provider] -
== END 2016-12-01 19:35 | DRG 481 ==
LOC: C.ER 11:50 → C.9E 13:17 → C.6T 20:59 → C.9I 11-23 21:20 → C.5S 11-28 12:27
PROVIDERS: ADMIT Internal Medicine; ATTEND Internal Medicine
PROC: 0QS736Z Reposition Left Upper Femur with Intramedullary Internal Fixation Device, Percutaneous Approach (ICD-10-PCS; principal; 2016-11-23 15:00)
DX: S72.142A Displaced intertrochanteric fracture of left femur, initial encounter for closed fracture (principal); E87.1 Hypo-osmolality and hyponatremia; I48.91 Unspecified atrial fibrillation; J44.9 Chronic obstructive pulmonary disease, unspecified; D64.9 Anemia, unspecified; F10.10 Alcohol abuse, uncomplicated; I10 Essential (primary) hypertension; I25.10 Atherosclerotic heart disease of native coronary artery without angina pectoris; I73.9 Peripheral vascular disease, unspecified; I65.29 Occlusion and stenosis of unspecified carotid artery; R29.6 Repeated falls; R63.6 Underweight; F17.210 Nicotine dependence, cigarettes, uncomplicated; W18.30XA Fall on same level, unspecified, initial encounter; Z86.73 Personal history of transient ischemic attack (TIA), and cerebral infarction without residual deficits

== ENCOUNTER 2016-12-07 14:40 | Inpatient (IN) | payer MEDICARE, MEDICAID ==
[2016-12-07 14:41] VITALS: PULSE 120; BMI 22.3
--- NOTE | 2016-12-07 15:50 | RAD ---
PROCEDURE: CHEST RADIOGRAPH, 1 VIEW HISTORY: SOB COMPARISON: Portable chest 11/28/2016. FINDINGS: LUNGS: No acute infiltrate seen bilaterally. Biapical fibrosis in the left greater the right apices. Inspiratory volume appears improved bilaterally. Stable right hilar prominence is again noted. PLEURA: No pneumothorax or pleural fluid seen. Scattered partially calcified pleural plaques are again seen bilaterally. CARDIOVASCULAR: Normal. OSSEOUS STRUCTURES: No significant abnormalities. VISUALIZED UPPER ABDOMEN: Normal. OTHER FINDINGS: None. IMPRESSION: Improved inspiratory volume. No airspace disease is appreciated at this time. Right hilar prominence is unchanged.
[2016-12-07 16:01] LABS: BASO # 0.1 K/uL (0.0-0.2); BASO % 1.3 % (0.0-2.0); EOS # 0.1 K/uL (0.0-0.7); EOS % 1.3 % (0.0-4.0); HEMATOCRIT 28.2 % (35.0-51.0); LYMPH % 11.9 % (20.0-40.0); MEAN CELL VOLUME 80.1 fL (80.0-94.0); MEAN CORPUSCULAR HEMOGLOBIN 26.6 pg (27.0-31.0); MEAN CORPUSCULAR HGB CONC 33.3 g/dL (33.0-37.0); MEAN PLATELET VOLUME 7.4 fL (7.2-11.7); MONO # 0.6 K/uL (0.0-0.8); MONO % 7.4 % (0.0-10.0); RED CELL DISTRIBUTION WIDTH 20.6 % (11.5-14.5); WHITE BLOOD COUNT 8.7 K/uL (4.8-10.8)
[2016-12-07 16:13] LABS: CHLORIDE 94 mmol/L (98-107)
[2016-12-07 16:14] LABS: SODIUM 130 mmol/L (132-148)
[2016-12-07 16:16] LABS: ALB/GLOB RATIO 0.8 (1.0-2.1); ALKALINE PHOSPHATASE 111 U/L (38-126); AST/SGOT 27 U/L (17-59); BILIRUBIN,TOTAL 0.8 mg/dL (0.2-1.3); BLOOD UREA NITROGEN 73 mg/dL (9-20); CARBON DIOXIDE 17 mmol/L (22-30); GFR AFRICAN-AMERICAN 11; TOTAL PROTEIN 6.4 g/dL (6.3-8.3)
[2016-12-07 16:17] LABS: ALT/SGPT 25 U/L (21-72); CALCIUM 7.7 mg/dl (8.6-10.4); GLUCOSE,RANDOM 87 mg/dL (75-110)
[2016-12-07 16:18] LABS: POTASSIUM 5.8 mmol/L (3.6-5.2)
[2016-12-07] MEDS ORDERED: Sodium Chloride 0.9% 1,000 ML IV ONE ×2 (16:21→17:21)
[2016-12-07] MEDS ORDERED: Sodium Chloride 0.9% 1,000 ML ONE (16:28)
--- NOTE | 2016-12-07 16:28 | C.PDOC ---
History Of Present Illness 81 yo male w/PMHx of chronic heavy smoker and he drinks alot, weak , underweight , whose past medical history includes hypertension, hyponatremia, etoh abuse, COPD, recent hx of Left hip fracture s/o ORIF, transferred to the emergency department from rehab for evaluation of abnormal labs. As per transfer paper, high potassium noted. At present time, pt appears awake, comfortable, not in any apparent distress. Pt c/o mild Left hip pain. Otherwise, pt denies fever, chills, headache, dizziness, CP, SOB, dyspnea, diaphoresis, palpitation, abd. pain, N/V/D or any other active complaints. Time Seen by Provider: 12/07/16 15:11 Chief Complaint (Nursing): Abnormal Labs History Per: Patient History/Exam Limitations: no limitations Onset/Duration Of Symptoms: Days Past Medical History Reviewed: Historical Data, Nursing Documentation, Vital Signs Vital Signs: Last Vital Signs Temp 97.4 F L 12/07/16 14:42 Pulse 77 12/07/16 14:42 Resp 22 12/07/16 14:42 BP 111/72 12/07/16 14:42 Pulse Ox 99 12/07/16 16:58 - Medical History PMH: COPD, HTN - [facility] Procedures CLOSURE SKIN & SUBCUTANEOUS NEC (11/16/12) EXCISION OF PROSTATE, VIA OPENING, DIAGN (08/30/16) FLUOROSCOPY OF LEFT HEART USING LOW OSMOLAR CONTRAST (08/30/16) FLUOROSCOPY OF MULT COR ART USING L OSM CONTRAST (08/30/16) MEASURE OF ARTERIAL PRESSURE, PERIPHERAL, RIM ROLLER OPERATOR APPROACH (08/30/16) MEASURE OF CARDIAC SAMPL & PRESSURE, L HEART, PERC APPROACH (08/30/16) MEASUREMENT OF CARDIAC RHYTHM, EXTERNAL APPROACH (08/30/16) REPAIR FACE SKIN, EXTERNAL APPROACH (08/30/16) REPOSITION LEFT UPPER FEMUR WITH INTRAMED FIX, PERC APPROACH (11/20/16) ULTRASONOGRAPHY OF PROSTATE AND SEMINAL VESICLES (08/30/16) Family History: States: No Known Family Hx - Social History Hx Tobacco Use: No Hx Alcohol Use: No Hx Substance Use: No - Immunization History Hx Tetanus Toxoid Vaccination: No Hx Influenza Vaccination: Yes Hx Pneumococcal Vaccination: No Review Of Systems Except As Marked, All Systems Reviewed And Found Negative. Constitutional: Negative for: Fever, Chills Cardiovascular: Negative for: Chest Pain, Palpitations Respiratory: Negative for: Shortness of Breath Gastrointestinal: Negative for: Nausea, Vomiting, Abdominal Pain Neurological: Negative for: Headache, Dizziness Physical Exam - Physical Exam Appears: Well, Non-toxic, No Acute Distress Skin: Normal Color, Warm Head: Normacephalic Eye(s): bilateral: PERRL Oral Mucosa: Moist, No Drooling Throat: No Drooling Neck: Supple Cardiovascular: Rhythm Regular, Murmur (systolic, 3/6) Respiratory: No Stridor, No Wheezing Gastrointestinal/Abdominal: Soft, Tenderness (mild diffuse tenderness.), No Distention, No Guarding, No Rebound Extremity: No Calf Tenderness, No Deformity, Swelling (mild L>R trace ankle edema.) Neurological/Psych: Normal Motor, Normal Sensation, Normal Reflexes ED Course And Treatment - Laboratory Results Result Diagrams: 12/07/16 15:57 12/07/16 15:57 Lab Interpretation: Abnormal ECG: Interpreted By Me, Viewed By Me ECG Interpretation: No Changes From Prior Interpretation Of ECG: Sinus tachy@101/min, NAD, no acute T wave or ST-T changes. Compare to old study, no new acute changes Rate From EC (BPM) O2 Sat by Pulse Oximetry: 99 (RA) Pulse Ox Interpretation: Normal () - Other Rad CXR X-Ray: Viewed By Me, Read By Radiologist Interpretation: IMPRESSION: Improved inspiratory volume. No airspace disease is appreciated at this time. Right hilar prominence is unchanged. Progress Note: Blood work review and appears abnormal. case dsicussed with med- on-call . As per Dr. Rollins, who familiar with pateint, pt had difficulty urinating for past few days. Hyperkalemia noted on last blood work at [facility] with K=6. Results review with who recommend insert Cummings cath and after that start hydration, admission to his service to telemetry floor recommend. On re-eval, pt remained stable, not in any apparent distress. Afebrile, hemodynamicaly stable. monitoring manager:sinus rhytm. Lungs: CTA B/L, BS equal B/L. CVS: (+)S1S2, reg. Abd: benign, (-) guarding, (-) rebound. Neuorlogicaly intact. Admission arranged. 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 - Scribe Statement The provider has reviewed the documentation as recorded by the Scribe Hiwot Reza All medical record entries made by the Dottyibdorian were at my direction and personally dictated by me. I have reviewed the chart and agree that the record accurately reflects my personal performance of the history, physical exam, medical decision making, and the department course for this patient. I have also personally directed, reviewed, and agree with the discharge instructions and disposition.
[2016-12-07 16:44] LABS: INR 1.4
[2016-12-07] MEDS ORDERED: (Novolin R) Insulin Human Regular 100 units/ml vial IV ONE (16:55)
[2016-12-07] MEDS ORDERED: Dextrose 50% SYRINGE Inj (50 ml) IVP STA (16:55)
[2016-12-07] MEDS ORDERED: Sod Polystyrene Sulf 15 gm/60 ml Susp PO ONE (16:56)
[2016-12-07] MEDS ORDERED: Dextrose 50% SYRINGE Inj (50 ml) ONE (17:07)
[2016-12-07] MEDS ORDERED: (Novolin R) Insulin Human Regular 100 units/ml vial ONE (17:08)
[2016-12-07] MEDS ORDERED: Sod Polystyrene Sulf 15 gm/60 ml Susp ONE (17:08)
[2016-12-07 17:28] LABS: URINE BILIRUBIN NEGATIVE (NEGATIVE); URINE BLOOD 2+ (NEGATIVE); URINE COLOR Yellow (YELLOW); URINE GLUCOSE (UA) NORMAL (Normal); URINE KETONE NEGATIVE (NEGATIVE); URINE LEUKOCYTE ESTERASE 1+ Leu/uL (Negative); URINE PROTEIN NEGATIVE (NEGATIVE); URINE UROBILINOGEN NORMAL mg/dL (0.2-1.0); WBC URINE 18 /hpf (0-5)
[2016-12-07 17:38] LABS: RBC URINE 14 /hpf (0-3); URINE BACTERIA FEW (<OCC)
[2016-12-07] MEDS ORDERED: cefTRIAXone IV 1 gm in Dextros 50 ML IVPB ONE (18:11)
[2016-12-07] MEDS: Dextrose 5%/0.45% NS 1,000 ML IV SCH (20:06)
[2016-12-07] MEDS: Albuterol-Ipratrop 3 mg / 0.5 (3 ml) UD INH SCH (20:07)
[2016-12-07] MEDS: Oxycodone/Acetaminophen 5/325 mg Tab PO PRN (21:11)
--- NOTE | 2016-12-07 22:27 | CP.PCM.PN ---
Subjective - Date & Time of Evaluation Date of Evaluation: 12/07/16 Time of Evaluation: 09:45 - Subjective Subjective: PT SEEN & EXAMINED AT BEDSIDE Objective - Vital Signs/Intake and Output Vital Signs (last 24 hours): Temp Pulse Resp BP Pulse Ox 97.5 F L 101 H 20 123/73 100 12/07/16 21:05 12/07/16 21:05 12/07/16 21:05 12/07/16 21:05 12/07/16 21:05 - Medications Medications: Current Medications Acetaminophen (Tylenol 325mg Tab) 650 mg PO Q6 PRN PRN Reason: Pain, Mild (1-3) Albuterol/Ipratropium (Duoneb 3 Mg/0.5 Mg (3 Ml) Ud) 3 ml INH RQ6 [facility] Last Admin: 12/07/16 20:07 Dose: 3 ml Clopidogrel Bisulfate (Plavix) 75 mg PO DAILY [facility] Enoxaparin Sodium (Lovenox) 30 mg SC DAILY [facility] Famotidine (Pepcid) 20 mg PO DAILY [facility] Guaifenesin (Robitussin) 200 mg PO Q6 [facility] Dextrose/Sodium Chloride (Dextrose 5%/0.45% Ns 1000 Ml) 1,000 mls @ 80 mls/hr IV .[id number] [facility] Last Admin: 12/07/16 20:06 Dose: 80 mls/hr Oxycodone/Acetaminophen (Percocet 5/325 Mg Tab) 2 tab PO Q4H PRN PRN Reason: Pain, severe (8-10) Stop: 12/10/16 19:47 Last Admin: 12/07/16 21:11 Dose: 2 tab Rosuvastatin Calcium (Crestor) 5 mg PO HS [facility] Last Admin: 12/07/16 21:12 Dose: 5 mg Fluticasone/Salmeterol (Advair Diskus 250/50) 1 puff INH RQ12 [facility] - Labs Labs: 12/07/16 15:57 12/07/16 15:57 PT 15.6 SECONDS (9.7-12.2) H 12/07/16 16:27 INR 1.4 12/07/16 16:27 APTT 39 SECONDS (21-34) H 12/07/16 16:27
--- NOTE | 2016-12-08 00:11 | CP.PCM.HP ---
History of Present Illness - History of Present Illness History of Present Illness: CC: Elevated BUN/CReatinine HPI: 81 yo male w/PMHx of chronic heavy smoker and he drinks alot, weak , underweight, whose past medical history includes hypertension, hyponatremia, etoh abuse, COPD,CAD on medical managment, recent hx of Left hip fracture s/o ORIF, transferred to the emergency department from rehab for evaluation of abnormal labs. As per transfer paper, high potassium noted.Pt also have inccreasingly fatigues, anorexia, malaise, decreased urine out put. At present time, pt appears weak, lethargic, , no acute distress. Pt c/o mild Left hip pain. Otherwise, pt denies fever, chills, headache, dizziness, CP, SOB, dyspnea , diaphoresis, palpitation, abd. pain, N/V/D or any other active complaints. Present on Admission - Present on Admission Any Indicators Present on Admission: No Review of Systems - Review of Systems Systems not reviewed;Unavailable: Acuity of Condition - Constitutional Constitutional: Fatigue, Lethargy - EENT Nose/Mouth/Throat: absent: As Per HPI, Epistaxis, Nasal Congestion, Nasal Discharge, Nasal Obstruction, Nasal Trauma, Nose Pain, Post Nasal Drip, Sinus Pain, Sinus Pressure, Bleeding Gums, Change in Voice, Dental Pain, Dry Mouth, Dysphagia, Halitosis, Hoarsness, Lip Swelling, Mouth Lesions, Mouth Pain, Odynophagia, Sore Throat, Throat Swelling, Tongue Swelling, Facial Pain, Neck Pain, Neck Mass, Other - Cardiovascular Cardiovascular: absent: As Per HPI, Acrocyanosis, Chest Pain, Chest Pain at Rest , Chest Pain with Activity, Claudication, Diaphoresis, Dyspnea, Dyspnea on Exertion, Edema, Irregular Heart Rhythm, Pain Radiating to Arm/Neck/Jaw, Leg Edema, Leg Ulcers, Lightheadedness, Orthopnea, Palpitations, Paroxysmal Nocturnal Dyspnea, Pedal Edema, Radiating Pain, Rapid Heart Rate, Slow Heart Rate, Syncope, Other - Gastrointestinal Gastrointestinal: absent: As Per HPI, Abdominal Pain, Belching, Bloating, Change in Bowel Habits, Change in Stool Character, Coffee Ground Emesis, Constipation, Cramping, Diarrhea, Dyspepsia, Dysphagia, Early Satiety, Excessive Flatus, Fecal Incontinence, Heartburn, Hematemesis, Hematochezia, Loose Stools, Melena, Nausea, Odynophagia, Temesmus, Vomiting, Other - Genitourinary Genitourinary: Change in Urinary Stream, Difficulty Urinating, Urinary Hesitance - Musculoskeletal Musculoskeletal: Abnormal Gait, Joint Swelling, Limited Range of Motion, Muscle Weakness, Myalgias - Integumentary Integumentary: absent: As Per HPI, Acne, Alopecia, Bleeding Lesions, Change in Hair, Change in Nails, Change in Pigmentation, Changing Lesions, Dry Skin, Erythema, Furuncle, Hirsutism, Lesions, New Lesions, Non-Healing Lesions, Photosensitivity, Pruritus, Rash, Skin Pain, Skin Ulcer, Sores, Striae, Swelling , Unusual Bruising, Wounds, Jaundice, Other - Neurological Neurological: absent: As Per HPI, Abnormal Gait, Abnormal Hearing, Abnormal Movements, Abnormal Speech, Behavioral Changes, Burning Sensations, Confusion, Convulsions, Disequilibrium, Dizziness, Numbness, Focal Weakness, Frequent Falls , Headaches, Lack of Coordination, Loss of Vision, Memory Loss, Paresthesias, Radicular Pain, Restless Legs, Sensory Deficit, Syncope, Tingling, Tremor, Vertigo, Weakness, Other Visual Disturbances, Other Past Patient History - Infectious Disease Hx of Infectious Diseases: None - Past Medical History & Family History Past Medical History?: No - Past Social History Smoking Status: Light Smoker < 10 Cigarettes Daily - CARDIAC Hx Hypertension: Yes - PULMONARY Hx Chronic Obstructive Pulmonary Disease (COPD): Yes - NEUROLOGICAL HX Cerebrovascular Accident: Yes (7 YEARS AGO) - MUSCULOSKELETAL/RHEUMATOLOGICAL Hx Falls: Yes - PSYCHIATRIC Hx Substance Use: No - SURGICAL HISTORY Hx Surgeries: No - ANESTHESIA Hx Anesthesia: No Meds Home Medications: Home Medication List Medication Instructions Recorded Confirmed Type Acetaminophen [Tylenol 325mg tab] 650 mg PO Q6 PRN tab 12/09/16 Rx Albuterol/Ipratropium [Duoneb 3 3 ml INH RQ6 neb 12/09/16 Rx mg/0.5 mg (3 ml) UD] Cephalexin [Keflex] 500 mg PO BID #12 capsule 12/09/16 Rx Clopidogrel [Plavix] 75 mg PO DAILY tab 12/09/16 Rx Enoxaparin [Lovenox] 30 mg SC DAILY syr 12/09/16 Rx Famotidine [Pepcid] 20 mg PO DAILY tab 12/09/16 Rx Ferrous Sulfate 325 mg PO BID #60 tablet 12/09/16 Rx Fluticasone/Salmeterol 250/50 1 puff INH RQ12 puff 12/09/16 Rx [Advair Diskus 250/50] Rosuvastatin Calcium [Crestor] 5 mg PO HS tab 12/09/16 Rx Tamsulosin [Flomax] 0.4 mg PO BID cap 12/09/16 Rx guaiFENesin [Robitussin] 200 mg PO Q6 udc 12/09/16 Rx oxyCODONE/Acetaminophen [Percocet 2 tab PO Q4H PRN #20 tab 12/09/16 Rx 5/325 mg Tab] Allergies/Adverse Reactions: Allergies Allergy/AdvReac Type Severity Reaction Status Date / Time No Known Allergies Allergy Verified 12/07/16 14:46 Physical Exam - Constitutional Appears: No Acute Distress - Head Exam Head Exam: ATRAUMATIC, NORMAL INSPECTION, NORMOCEPHALIC - ENT Exam ENT Exam: Mucous Membranes Moist, Normal Exam - Neck Exam Neck exam: Positive for: Normal Inspection - Respiratory Exam Respiratory Exam: Clear to Auscultation Bilateral, NORMAL BREATHING PATTERN - Cardiovascular Exam Cardiovascular Exam: REGULAR RHYTHM - GI/Abdominal Exam GI & Abdominal Exam: Normal Bowel Sounds, Soft. absent: Tenderness Results - Vital Signs Recent Vital Signs: Last Vital Signs Temp 97.5 F L 12/07/16 21:05 Pulse 101 H 12/07/16 21:05 Resp 20 12/07/16 21:05 BP 123/73 12/07/16 21:05 Pulse Ox 100 12/07/16 21:05 - Labs Result Diagrams: 12/09/16 06:14 12/09/16 06:14 Labs: Laboratory Results - last 24 hr 12/07/16 12/07/16 12/07/16 15:57 15:57 16:27 WBC 8.7 RBC 3.53 L Hgb 9.4 L Hct 28.2 L MCV 80.1 MCH 26.6 L MCHC 33.3 RDW 20.6 H Plt Count 647 H D MPV 7.4 Neut % (Auto) 78.1 H Lymph % (Auto) 11.9 L [place] % (Auto) 7.4 Eos % (Auto) 1.3 Baso % (Auto) 1.3 Neut # 6.8 Lymph # 1.0 [place] # 0.6 Eos # 0.1 Baso # 0.1 PT 15.6 H INR 1.4 APTT 39 H Sodium 130 L Potassium 5.8 H Chloride 94 L Carbon Dioxide 17 L Anion Gap 25 H BUN 73 H Creatinine 5.9 H Est GFR ( Amer) 11 Est GFR (Non-Af Amer) 9 POC Glucose (mg/dL) Random Glucose 87 Calcium 7.7 L Total Bilirubin 0.8 AST 27 ALT 25 Alkaline Phosphatase 111 Troponin I < 0.0120 Total Protein 6.4 Albumin 2.9 L D Globulin 3.5 Albumin/Globulin Ratio 0.8 L Urine Color Urine Clarity Urine pH Ur Specific [place] Urine Protein Urine Glucose (UA) Urine Ketones Urine Blood Urine Nitrate Urine Bilirubin Urine Urobilinogen Ur Leukocyte Esterase Urine WBC (Auto) Urine RBC (Auto) Urine Bacteria 12/07/16 12/07/16 17:00 17:34 WBC RBC Hgb Hct MCV MCH MCHC RDW Plt Count MPV Neut % (Auto) Lymph % (Auto) [place] % (Auto) Eos % (Auto) Baso % (Auto) Neut # Lymph # [place] # Eos # Baso # PT INR APTT Sodium Potassium Chloride Carbon Dioxide Anion Gap BUN Creatinine Est GFR ( Amer) Est GFR (Non-Af Amer) POC Glucose (mg/dL) 172 H Random Glucose Calcium Total Bilirubin AST ALT Alkaline Phosphatase Troponin I Total Protein Albumin Globulin Albumin/Globulin Ratio Urine Color Yellow Urine Clarity Clear Urine pH 6.0 Ur Specific [place] 1.013 Urine Protein Negative Urine Glucose (UA) Normal Urine Ketones Negative Urine Blood 2+ H Urine Nitrate Negative Urine Bilirubin Negative Urine Urobilinogen Normal Ur Leukocyte Esterase 1+ H Urine WBC (Auto) 18 H Urine RBC (Auto) 14 H Urine Bacteria Few H Assessment & Plan (1) Acute renal failure Assessment and Plan: Elevated BUN/creatinne Status: Acute (2) Hyperkalemia Status: Acute (3) Closed intertrochanteric fracture of left femur Assessment and Plan: s/p ORIF Status: Acute (4) Weakness generalized Assessment and Plan: Physical therapy Rehab Status: Acute
[2016-12-08] MEDS: guaiFENesin 200 mg/10 ml Syrup UD PO SCH ×4 (00:24→17:50)
[2016-12-08] MEDS: Albuterol-Ipratrop 3 mg / 0.5 (3 ml) UD INH SCH ×4 (01:19→19:56)
[2016-12-08] MEDS: Oxycodone/Acetaminophen 5/325 mg Tab PO PRN ×3 (08:04→17:07)
[2016-12-08] MEDS: Fluticasone-Salmeterol 250-50mcg Diskus INH SCH ×2 (08:08→19:56)
[2016-12-08] MEDS: Enoxaparin 30 mg Syringe SC SCH (09:15)
--- NOTE | 2016-12-08 13:15 | CP.PCM.CON ---
History of Present Illness - History of Present Illness History of Present Illness: full note t/f Past Patient History - Infectious Disease Hx of Infectious Diseases: None - Past Medical History & Family History Past Medical History?: No - Past Social History Smoking Status: Light Smoker < 10 Cigarettes Daily - CARDIAC Hx Hypertension: Yes - PULMONARY Hx Chronic Obstructive Pulmonary Disease (COPD): Yes - NEUROLOGICAL HX Cerebrovascular Accident: Yes (7 YEARS AGO) - HEENT Hx HEENT Problems: No - RENAL Hx Chronic Kidney Disease: No - ENDOCRINE/METABOLIC Hx Endocrine Disorders: No - HEMATOLOGICAL/ONCOLOGICAL Hx Blood Disorders: No - INTEGUMENTARY Hx Dermatological Problems: No - MUSCULOSKELETAL/RHEUMATOLOGICAL Hx Falls: Yes - GASTROINTESTINAL Hx Gastrointestinal Disorders: No - PSYCHIATRIC Hx Substance Use: No - SURGICAL HISTORY Hx Surgeries: No - ANESTHESIA Hx Anesthesia: No Meds Allergies/Adverse Reactions: Allergies Allergy/AdvReac Type Severity Reaction Status Date / Time No Known Allergies Allergy Verified 12/07/16 14:46 - Medications Medications: Current Medications Acetaminophen (Tylenol 325mg Tab) 650 mg PO Q6 PRN PRN Reason: Pain, Mild (1-3) Albuterol/Ipratropium (Duoneb 3 Mg/0.5 Mg (3 Ml) Ud) 3 ml INH RQ6 [facility] Last Admin: 12/08/16 08:08 Dose: 3 ml Clopidogrel Bisulfate (Plavix) 75 mg PO DAILY [facility] Last Admin: 12/08/16 09:15 Dose: 75 mg Enoxaparin Sodium (Lovenox) 30 mg SC DAILY [facility] Last Admin: 12/08/16 09:15 Dose: 30 mg Famotidine (Pepcid) 20 mg PO DAILY [facility] Last Admin: 12/08/16 09:15 Dose: 20 mg Guaifenesin (Robitussin) 200 mg PO Q6 [facility] Last Admin: 12/08/16 05:35 Dose: 200 mg Dextrose/Sodium Chloride (Dextrose 5%/0.45% Ns 1000 Ml) 1,000 mls @ 80 mls/hr IV .[id number] [facility] Last Admin: 12/07/16 20:06 Dose: 80 mls/hr Oxycodone/Acetaminophen (Percocet 5/325 Mg Tab) 2 tab PO Q4H PRN PRN Reason: Pain, severe (8-10) Stop: 12/10/16 19:47 Last Admin: 12/08/16 08:04 Dose: 2 tab Rosuvastatin Calcium (Crestor) 5 mg PO HS [facility] Last Admin: 12/07/16 21:12 Dose: 5 mg Fluticasone/Salmeterol (Advair Diskus 250/50) 1 puff INH RQ12 [facility] Last Admin: 12/08/16 08:08 Dose: 1 puff Results - Vital Signs Recent Vital Signs: Last Vital Signs Temp 98.0 F 12/08/16 08:56 Pulse 89 12/08/16 08:56 Resp 18 12/08/16 08:56 BP 123/63 12/08/16 08:56 Pulse Ox 97 12/08/16 08:56 - Labs Result Diagrams: 12/07/16 15:57 12/07/16 15:57 Labs: Laboratory Results - last 24 hr 12/07/16 12/07/16 12/07/16 15:57 15:57 16:27 WBC 8.7 RBC 3.53 L Hgb 9.4 L Hct 28.2 L MCV 80.1 MCH 26.6 L MCHC 33.3 RDW 20.6 H Plt Count 647 H D MPV 7.4 Neut % (Auto) 78.1 H Lymph % (Auto) 11.9 L [place] % (Auto) 7.4 Eos % (Auto) 1.3 Baso % (Auto) 1.3 Neut # 6.8 Lymph # 1.0 [place] # 0.6 Eos # 0.1 Baso # 0.1 PT 15.6 H INR 1.4 APTT 39 H Sodium 130 L Potassium 5.8 H Chloride 94 L Carbon Dioxide 17 L Anion Gap 25 H BUN 73 H Creatinine 5.9 H Est GFR ( Amer) 11 Est GFR (Non-Af Amer) 9 POC Glucose (mg/dL) Random Glucose 87 Calcium 7.7 L Total Bilirubin 0.8 AST 27 ALT 25 Alkaline Phosphatase 111 Troponin I < 0.0120 Total Protein 6.4 Albumin 2.9 L D Globulin 3.5 Albumin/Globulin Ratio 0.8 L Urine Color Urine Clarity Urine pH Ur Specific [place] Urine Protein Urine Glucose (UA) Urine Ketones Urine Blood Urine Nitrate Urine Bilirubin Urine Urobilinogen Ur Leukocyte Esterase Urine WBC (Auto) Urine RBC (Auto) Urine Bacteria 12/07/16 12/07/16 17:00 17:34 WBC RBC Hgb Hct MCV MCH MCHC RDW Plt Count MPV Neut % (Auto) Lymph % (Auto) [place] % (Auto) Eos % (Auto) Baso % (Auto) Neut # Lymph # [place] # Eos # Baso # PT INR APTT Sodium Potassium Chloride Carbon Dioxide Anion Gap BUN Creatinine Est GFR ( Amer) Est GFR (Non-Af Amer) POC Glucose (mg/dL) 172 H Random Glucose Calcium Total Bilirubin AST ALT Alkaline Phosphatase Troponin I Total Protein Albumin Globulin Albumin/Globulin Ratio Urine Color Yellow Urine Clarity Clear Urine pH 6.0 Ur Specific [place] 1.013 Urine Protein Negative Urine Glucose (UA) Normal Urine Ketones Negative Urine Blood 2+ H Urine Nitrate Negative Urine Bilirubin Negative Urine Urobilinogen Normal Ur Leukocyte Esterase 1+ H Urine WBC (Auto) 18 H Urine RBC (Auto) 14 H Urine Bacteria Few H Assessment & Plan - Assessment and Plan (Free Text) Assessment: IMP; Renal failure Possible urinary retention s/p orthopedic surgery - Date & Time Date: 12/08/16 Time: 13:15
[2016-12-08 14:07] LABS: BASO # 0.1 K/uL (0.0-0.2); BASO % 1.2 % (0.0-2.0); EOS # 0.1 K/uL (0.0-0.7); EOS % 2.1 % (0.0-4.0); HEMATOCRIT 25.9 % (35.0-51.0); LYMPH # 1.1 K/uL (1.0-4.3); LYMPH % 16.8 % (20.0-40.0); MEAN CELL VOLUME 78.5 fL (80.0-94.0); MEAN CORPUSCULAR HEMOGLOBIN 26.5 pg (27.0-31.0); MEAN CORPUSCULAR HGB CONC 33.8 g/dL (33.0-37.0); MEAN PLATELET VOLUME 7.1 fL (7.2-11.7); MONO # 0.5 K/uL (0.0-0.8); MONO % 7.7 % (0.0-10.0); RED CELL DISTRIBUTION WIDTH 20.6 % (11.5-14.5); WHITE BLOOD COUNT 6.6 K/uL (4.8-10.8)
[2016-12-08 14:13] LABS: CHLORIDE 102 mmol/L (98-107); POTASSIUM 3.4 mmol/L (3.6-5.2); SODIUM 137 mmol/L (132-148)
[2016-12-08 14:15] LABS: GFR AFRICAN-AMERICAN > 60
[2016-12-08 14:16] LABS: BLOOD UREA NITROGEN 27 mg/dL (9-20); CALCIUM 7.8 mg/dl (8.6-10.4); CARBON DIOXIDE 26 mmol/L (22-30); GLUCOSE,RANDOM 99 mg/dL (75-110)
[2016-12-08 14:39] LABS: RBC URINE 34 /hpf (0-3); URINE BILIRUBIN NEGATIVE (NEGATIVE); URINE BLOOD 2+ (NEGATIVE); URINE COLOR Yellow (YELLOW); URINE GLUCOSE (UA) NORMAL (Normal); URINE KETONE NEGATIVE (NEGATIVE); URINE LEUKOCYTE ESTERASE 2+ Leu/uL (Negative); URINE PROTEIN 1+ mg/dL (NEGATIVE); URINE UROBILINOGEN NORMAL mg/dL (0.2-1.0); WBC URINE 26 /hpf (0-5)
--- NOTE | 2016-12-08 15:27 | US ---
PROCEDURE: Ultrasound of the Kidneys HISTORY: RENAL FAILURE COMPARISON: None available. TECHNIQUE: Sonogram of the kidneys. FINDINGS: RIGHT KIDNEY: Measures: 10.4 x 4.2 x 4.1 cm. No obstructing calculus, hydronephrosis, or renal cyst identified. LEFT KIDNEY: Measures: 10.7 x 5.1 x 5.3 cm. No obstructing calculus, hydronephrosis, or renal cyst identified. OTHER FINDINGS: Cummings catheter within a decompressed urinary bladder. IMPRESSION: No hydronephrosis or obstructing calculus identified. Cummings catheter within a decompressed urinary bladder.
[2016-12-08] MEDS ORDERED: Potassium Chloride 20 mEq ER Tab PO ONE (16:30)
[2016-12-08] MEDS: Ferric Sodium Gluconat Complex 62.5 mg/5 ml Vial IVPB SCH (17:07)
[2016-12-08] MEDS: Dextrose 5%/0.45% NS 1,000 ML IV SCH (21:22)
--- NOTE | 2016-12-08 22:56 | CP.PCM.PN ---
Subjective - Date & Time of Evaluation Date of Evaluation: 12/08/16 Time of Evaluation: 20:40 - Subjective Subjective: Pt seen and examined, is feeling better, foleys catherer in place, BUN/Creinine went down,normal potasium level,pt is on potasium suplementation, IV fluis, pt has been seen by urology PSA has been ordered waiting for results Objective - Vital Signs/Intake and Output Vital Signs (last 24 hours): Temp Pulse Resp BP Pulse Ox 98.1 F 92 H 20 102/51 L 100 12/08/16 15:56 12/08/16 19:02 12/08/16 15:56 12/08/16 15:56 12/08/16 15:56 - Medications Medications: Current Medications Acetaminophen (Tylenol 325mg Tab) 650 mg PO Q6 PRN PRN Reason: Pain, Mild (1-3) Albuterol/Ipratropium (Duoneb 3 Mg/0.5 Mg (3 Ml) Ud) 3 ml INH RQ6 [facility] Last Admin: 12/08/16 19:56 Dose: Not Given Clopidogrel Bisulfate (Plavix) 75 mg PO DAILY [facility] Last Admin: 12/08/16 09:15 Dose: 75 mg Enoxaparin Sodium (Lovenox) 30 mg SC DAILY [facility] Last Admin: 12/08/16 09:15 Dose: 30 mg Famotidine (Pepcid) 20 mg PO DAILY [facility] Last Admin: 12/08/16 09:15 Dose: 20 mg Ferric Sodium Gluconate Complex (Ferrlecit) 125 mg IVPB DAILY [facility] Stop: 12/16/16 16:46 Last Admin: 12/08/16 17:07 Dose: 125 mg Guaifenesin (Robitussin) 200 mg PO Q6 [facility] Last Admin: 12/08/16 17:50 Dose: 200 mg Dextrose/Sodium Chloride (Dextrose 5%/0.45% Ns 1000 Ml) 1,000 mls @ 80 mls/hr IV .[id number] [facility] Last Admin: 12/08/16 21:22 Dose: Not Given Oxycodone/Acetaminophen (Percocet 5/325 Mg Tab) 2 tab PO Q4H PRN PRN Reason: Pain, severe (8-10) Stop: 12/10/16 19:47 Last Admin: 12/08/16 17:07 Dose: 2 tab Rosuvastatin Calcium (Crestor) 5 mg PO HS [facility] Last Admin: 12/08/16 21:19 Dose: 5 mg Fluticasone/Salmeterol (Advair Diskus 250/50) 1 puff INH RQ12 [facility] Last Admin: 12/08/16 19:56 Dose: Not Given - Labs Labs: 12/08/16 13:54 12/08/16 13:54 PT 15.6 SECONDS (9.7-12.2) H 12/07/16 16:27 INR 1.4 12/07/16 16:27 APTT 39 SECONDS (21-34) H 12/07/16 16:27 - Constitutional Appears: No Acute Distress - Head Exam Head Exam: ATRAUMATIC, NORMAL INSPECTION, NORMOCEPHALIC - Eye Exam Eye Exam: EOMI, Normal appearance, PERRL Pupil Exam: NORMAL ACCOMODATION, PERRL - ENT Exam ENT Exam: Mucous Membranes Moist, Normal Exam - Respiratory Exam Respiratory Exam: Rales, NORMAL BREATHING PATTERN - Cardiovascular Exam Cardiovascular Exam: REGULAR RHYTHM, +S1, +S2. absent: Murmur - GI/Abdominal Exam GI & Abdominal Exam: Soft, Normal Bowel Sounds. absent: Tenderness - Rectal Exam Rectal Exam: Deferred Assessment and Plan (1) Acute renal failure Status: Acute (2) Hyperkalemia Status: Acute (3) Closed intertrochanteric fracture of left femur Status: Acute (4) Weakness generalized Status: Acute (5) Acute urinary retention Assessment & Plan: due to BPH vs foleys Pt has urinary cathere in place Status: Acute (6) CAD (coronary artery disease) Status: Acute
[2016-12-09] MEDS: guaiFENesin 200 mg/10 ml Syrup UD PO SCH ×4 (00:03→17:29)
[2016-12-09] MEDS: Albuterol-Ipratrop 3 mg / 0.5 (3 ml) UD INH SCH ×4 (01:09→19:20)
[2016-12-09] MEDS: Dextrose 5%/0.45% NS 1,000 ML IV SCH ×2 (04:09→10:13)
[2016-12-09] MEDS: Oxycodone/Acetaminophen 5/325 mg Tab PO PRN ×2 (06:08→10:28)
[2016-12-09 06:24] LABS: BASO # 0.1 K/uL (0.0-0.2); BASO % 1.5 % (0.0-2.0); EOS # 0.2 K/uL (0.0-0.7); EOS % 3.6 % (0.0-4.0); HEMATOCRIT 22.9 % (35.0-51.0); LYMPH % 18.5 % (20.0-40.0); MEAN CELL VOLUME 77.9 fL (80.0-94.0); MEAN CORPUSCULAR HEMOGLOBIN 26.4 pg (27.0-31.0); MEAN CORPUSCULAR HGB CONC 33.9 g/dL (33.0-37.0); MONO # 0.7 K/uL (0.0-0.8); MONO % 11.9 % (0.0-10.0); NRBC % 0.1 % (0.0-2.0); RED CELL DISTRIBUTION WIDTH 20.7 % (11.5-14.5); WHITE BLOOD COUNT 5.6 K/uL (4.8-10.8)
--- NOTE | 2016-12-09 07:25 | CP.PCM.PN ---
Subjective - Date & Time of Evaluation Date of Evaluation: 12/09/16 Time of Evaluation: 09:45 Objective - Vital Signs/Intake and Output Vital Signs (last 24 hours): Temp Pulse Resp BP Pulse Ox 97.8 F 89 20 101/56 L 100 12/08/16 23:10 12/09/16 04:18 12/08/16 23:10 12/08/16 23:10 12/08/16 23:10 Intake and Output: 12/09/16 12/09/16 06:59 18:59 Intake Total 600 Output Total 925 Balance -325 - Medications Medications: Current Medications Acetaminophen (Tylenol 325mg Tab) 650 mg PO Q6 PRN PRN Reason: Pain, Mild (1-3) Albuterol/Ipratropium (Duoneb 3 Mg/0.5 Mg (3 Ml) Ud) 3 ml INH RQ6 [facility] Last Admin: 12/09/16 01:09 Dose: Not Given Clopidogrel Bisulfate (Plavix) 75 mg PO DAILY [facility] Last Admin: 12/08/16 09:15 Dose: 75 mg Enoxaparin Sodium (Lovenox) 30 mg SC DAILY [facility] Last Admin: 12/08/16 09:15 Dose: 30 mg Famotidine (Pepcid) 20 mg PO DAILY [facility] Last Admin: 12/08/16 09:15 Dose: 20 mg Ferric Sodium Gluconate Complex (Ferrlecit) 125 mg IVPB DAILY [facility] Stop: 12/16/16 16:46 Last Admin: 12/08/16 17:07 Dose: 125 mg Guaifenesin (Robitussin) 200 mg PO Q6 [facility] Last Admin: 12/09/16 06:11 Dose: 200 mg Dextrose/Sodium Chloride (Dextrose 5%/0.45% Ns 1000 Ml) 1,000 mls @ 80 mls/hr IV .[id number] [facility] Last Admin: 12/09/16 04:09 Dose: 80 mls/hr Oxycodone/Acetaminophen (Percocet 5/325 Mg Tab) 2 tab PO Q4H PRN PRN Reason: Pain, severe (8-10) Stop: 12/10/16 19:47 Last Admin: 12/09/16 06:08 Dose: 2 tab Rosuvastatin Calcium (Crestor) 5 mg PO HS [facility] Last Admin: 12/08/16 21:19 Dose: 5 mg Fluticasone/Salmeterol (Advair Diskus 250/50) 1 puff INH RQ12 [facility] Last Admin: 12/08/16 19:56 Dose: Not Given - Labs Labs: 12/09/16 06:14 12/08/16 13:54 PT 15.6 SECONDS (9.7-12.2) H 12/07/16 16:27 INR 1.4 12/07/16 16:27 APTT 39 SECONDS (21-34) H 12/07/16 16:27 Assessment and Plan (1) Acute renal failure Status: Acute (2) Hyperkalemia Status: Acute (3) Closed intertrochanteric fracture of left femur Status: Acute (4) Weakness generalized Status: Acute (5) Acute urinary retention Status: Acute (6) CAD (coronary artery disease) Status: Acute
[2016-12-09 07:41] LABS: CHLORIDE 104 mmol/L (98-107)
[2016-12-09 07:42] LABS: POTASSIUM 3.6 mmol/L (3.6-5.2); SODIUM 133 mmol/L (132-148)
[2016-12-09 07:44] LABS: GFR AFRICAN-AMERICAN > 60
[2016-12-09 07:45] LABS: BLOOD UREA NITROGEN 17 mg/dL (9-20); CALCIUM 7.3 mg/dl (8.6-10.4); CARBON DIOXIDE 24 mmol/L (22-30); GLUCOSE,RANDOM 89 mg/dL (75-110)
[2016-12-09] MEDS: Fluticasone-Salmeterol 250-50mcg Diskus INH SCH ×2 (09:07→19:21)
[2016-12-09] MEDS: Ferric Sodium Gluconat Complex 62.5 mg/5 ml Vial IVPB SCH (10:28)
[2016-12-09] MEDS: Enoxaparin 30 mg Syringe SC SCH (10:29)
[2016-12-09 15:56] VITALS: O2SAT 98
[2016-12-09 17:00] VITALS: RESP 18
--- NOTE | 2016-12-09 17:33 | CP.PCM.PN ---
Subjective - Date & Time of Evaluation Date of Evaluation: 12/09/16 Time of Evaluation: 11:00 - Subjective Subjective: Patient seen today, awake, alert, states feels better , JOAQUIN sushma bridgetdeandra chest pain, sob, head ache, dizziness s/p PRBC Transfusion CR improved- 07<1.3<5.9 Objective - Vital Signs/Intake and Output Vital Signs (last 24 hours): Temp Pulse Resp BP Pulse Ox 97.8 F 90 18 101/59 L 98 12/09/16 15:56 12/09/16 15:56 12/09/16 15:56 12/09/16 15:56 12/09/16 15:00 Intake and Output: 12/09/16 12/09/16 06:59 18:59 Intake Total 600 350 Output Total 925 600 Balance -325 -250 - Medications Medications: Current Medications Acetaminophen (Tylenol 325mg Tab) 650 mg PO Q6 PRN PRN Reason: Pain, Mild (1-3) Albuterol/Ipratropium (Duoneb 3 Mg/0.5 Mg (3 Ml) Ud) 3 ml INH RQ6 [facility] Last Admin: 12/09/16 13:20 Dose: 3 ml Clopidogrel Bisulfate (Plavix) 75 mg PO DAILY [facility] Last Admin: 12/09/16 10:29 Dose: 75 mg Enoxaparin Sodium (Lovenox) 30 mg SC DAILY [facility] Last Admin: 12/09/16 10:29 Dose: Not Given Famotidine (Pepcid) 20 mg PO DAILY [facility] Last Admin: 12/09/16 10:29 Dose: 20 mg Ferric Sodium Gluconate Complex (Ferrlecit) 125 mg IVPB DAILY [facility] Stop: 12/16/16 16:46 Last Admin: 12/09/16 10:28 Dose: 125 mg Guaifenesin (Robitussin) 200 mg PO Q6 [facility] Last Admin: 12/09/16 17:29 Dose: 200 mg Dextrose/Sodium Chloride (Dextrose 5%/0.45% Ns 1000 Ml) 1,000 mls @ 80 mls/hr IV .[id number] [facility] Last Admin: 12/09/16 10:13 Dose: Not Given Ceftriaxone Sodium 1 gm/ (Sodium Chloride) 100 mls @ 100 mls/hr IVPB DAILY [facility] Oxycodone/Acetaminophen (Percocet 5/325 Mg Tab) 2 tab PO Q4H PRN PRN Reason: Pain, severe (8-10) Stop: 12/10/16 19:47 Last Admin: 12/09/16 10:28 Dose: 2 tab Rosuvastatin Calcium (Crestor) 5 mg PO HS [facility] Last Admin: 12/08/16 21:19 Dose: 5 mg Fluticasone/Salmeterol (Advair Diskus 250/50) 1 puff INH RQ12 [facility] Last Admin: 12/09/16 09:07 Dose: 1 puff Tamsulosin HCl (Flomax) 0.4 mg PO DAILY [facility] Last Admin: 12/09/16 10:29 Dose: 0.4 mg - Labs Labs: 12/09/16 06:14 12/09/16 06:14 PT 15.6 SECONDS (9.7-12.2) H 12/07/16 16:27 INR 1.4 12/07/16 16:27 APTT 39 SECONDS (21-34) H 12/07/16 16:27 Assessment and Plan - Assessment and Plan (Free Text) Assessment: A/P 81 yr old male admitted from rehab for Hyperkalemia, Acute renal failure, and anemia s/p transfusion f/c inserted for urinary retention cr. - improved and back to normal Dr. Glez consulted for urinary retention D/W Dr. Glez cleared for discharge back to [facility] from urology stand point [facility] f/c in and f/u outpatient for possible cysto D/w Dr. Rollins, stable for discharge back to [facility] [place] Dr. Rollins will follow the patient at [facility]
[2016-12-09 18:35] VITALS: BP 102/55; PULSE 96; TEMP 97.7
--- NOTE | 2016-12-10 00:43 | CP.PCM.DIS ---
Provider - Provider Date of Admission: 12/07/16 16:54 Attending physician: Jaxon Rollins MD Time Spent in preparation of Discharge (in minutes): 34 Diagnosis - Discharge Diagnosis (1) Acute renal failure Status: Acute (2) Hyperkalemia Status: Acute (3) Closed intertrochanteric fracture of left femur Status: Acute (4) Weakness generalized Status: Acute (5) Acute urinary retention Status: Acute (6) CAD (coronary artery disease) Status: Acute Hospital Course - Lab Results Lab Results: Micro Results 12/07/16 18:15 Blood Blood Culture - Preliminary NO GROWTH AFTER 48 HOURS 12/07/16 17:45 Blood Blood Culture - Preliminary NO GROWTH AFTER 48 HOURS 12/08/16 13:27 Urine,Vargas Urine Culture - Final No Growth (<1,000 CFU/ML) 12/07/16 16:21 Urine Urine Culture - Final No Growth (<1,000 CFU/ML) Most Recent Lab Values WBC 5.6 K/uL (4.8-10.8) 12/09/16 06:14 RBC 2.94 Mil/uL (4.40-5.90) L 12/09/16 06:14 Hgb 7.8 g/dL (12.0-18.0) L 12/09/16 06:14 Hct 22.9 % (35.0-51.0) L 12/09/16 06:14 MCV 77.9 fL (80.0-94.0) L 12/09/16 06:14 MCH 26.4 pg (27.0-31.0) L 12/09/16 06:14 MCHC 33.9 g/dL (33.0-37.0) 12/09/16 06:14 RDW 20.7 % (11.5-14.5) H 12/09/16 06:14 Plt Count 518 K/uL (130-400) H 12/09/16 06:14 MPV 7.0 fL (7.2-11.7) L 12/09/16 06:14 Neut % (Auto) 64.5 % (50.0-75.0) 12/09/16 06:14 Lymph % (Auto) 18.5 % (20.0-40.0) L 12/09/16 06:14 [place] % (Auto) 11.9 % (0.0-10.0) H 12/09/16 06:14 Eos % (Auto) 3.6 % (0.0-4.0) 12/09/16 06:14 Baso % (Auto) 1.5 % (0.0-2.0) 12/09/16 06:14 Neut # 3.6 K/uL (1.8-7.0) 12/09/16 06:14 Lymph # 1.0 K/uL (1.0-4.3) 12/09/16 06:14 [place] # 0.7 K/uL (0.0-0.8) 12/09/16 06:14 Eos # 0.2 K/uL (0.0-0.7) 12/09/16 06:14 Baso # 0.1 K/uL (0.0-0.2) 12/09/16 06:14 Differential Comment 12/08/16 13:54 PT 15.6 SECONDS (9.7-12.2) H 12/07/16 16:27 INR 1.4 12/07/16 16:27 APTT 39 SECONDS (21-34) H 12/07/16 16:27 Sodium 133 mmol/L (132-148) 12/09/16 06:14 Potassium 3.6 mmol/L (3.6-5.2) 12/09/16 06:14 Chloride 104 mmol/L (98-107) 12/09/16 06:14 Carbon Dioxide 24 mmol/L (22-30) 12/09/16 06:14 Anion Gap 9 (10-20) L 12/09/16 06:14 BUN 17 mg/dL (9-20) 12/09/16 06:14 Creatinine 0.7 mg/dL (0.8-1.5) L 12/09/16 06:14 Est GFR ( Amer) > 60 12/09/16 06:14 Est GFR (Non-Af Amer) > 60 12/09/16 06:14 POC Glucose (mg/dL) 172 mg/dL (65-110) H 12/07/16 17:34 Random Glucose 89 mg/dL (75-110) 12/09/16 06:14 Calcium 7.3 mg/dl (8.6-10.4) L 12/09/16 06:14 Total Bilirubin 0.8 mg/dL (0.2-1.3) 12/07/16 15:57 AST 27 U/L (17-59) 12/07/16 15:57 ALT 25 U/L (21-72) 12/07/16 15:57 Alkaline Phosphatase 111 U/L (38-126) 12/07/16 15:57 Troponin I < 0.0120 ng/mL (0.00-0.120) 12/07/16 15:57 Total Protein 6.4 g/dL (6.3-8.3) 12/07/16 15:57 Albumin 2.9 g/dL (3.5-5.0) L D 12/07/16 15:57 Globulin 3.5 gm/dL (2.2-3.9) 12/07/16 15:57 Albumin/Globulin Ratio 0.8 (1.0-2.1) L 12/07/16 15:57 Urine Color Yellow (YELLOW) 12/08/16 14:27 Urine Clarity [place] (Clear) 12/08/16 14:27 Urine pH 5.0 (5.0-8.0) 12/08/16 14:27 Ur Specific [place] 1.014 (1.003-1.030) 12/08/16 14:27 Urine Protein 1+ mg/dL (NEGATIVE) H 12/08/16 14:27 Urine Glucose (UA) Normal mg/dL (Normal) 12/08/16 14:27 Urine Ketones Negative mg/dL (NEGATIVE) 12/08/16 14:27 Urine Blood 2+ (NEGATIVE) H 12/08/16 14:27 Urine Nitrate Negative (NEGATIVE) 12/08/16 14:27 Urine Bilirubin Negative (NEGATIVE) 12/08/16 14:27 Urine Urobilinogen Normal mg/dL (0.2-1.0) 12/08/16 14:27 Ur Leukocyte Esterase 2+ [place]/uL (Negative) H 12/08/16 14:27 Urine WBC (Auto) 26 /hpf (0-5) H 12/08/16 14:27 Urine RBC (Auto) 34 /hpf (0-3) H 12/08/16 14:27 Ur Squamous Epith Cells < 1 /hpf (0-5) 12/08/16 14:27 Urine Bacteria Few (<OCC) H 12/07/16 17:00 Blood Type O POSITIVE 12/09/16 12:44 Antibody Screen Negative 12/09/16 12:44 - Hospital Course Hospital Course: Pt is for discharge after tranfusion, back to [facility] H and H is stable will follow up outpateint with urology BPH pending Discharge Exam - Head Exam Head Exam: ATRAUMATIC, NORMAL INSPECTION, NORMOCEPHALIC - Eye Exam Eye Exam: EOMI, Normal appearance, PERRL Pupil Exam: NORMAL ACCOMODATION, PERRL - ENT Exam ENT Exam: Mucous Membranes Moist - Respiratory Exam Respiratory Exam: Decreased Breath Sounds, Rales, Wheezes - Cardiovascular Exam Cardiovascular Exam: Tachycardia, +S1, +S2 - GI/Abdominal Exam GI & Abdominal Exam: Normal Bowel Sounds - Rectal Exam Rectal Exam: Deferred Discharge Plan - Discharge Medications Prescriptions: Ferrous Sulfate 325 mg PO BID #60 tablet Cephalexin [Keflex] 500 mg PO BID #12 capsule - Follow Up Plan Condition: STABLE Disposition: REHAB FACILITY/REHAB UNIT Instructions: Coronary Artery Disease (DC), Acute Kidney Injury (DC), Hyperkalemia (DC), Anemia (DC) Additional Instructions: Please call Dr. Rollins upon patient arrival to the facility continue medication as per Med. REc. PLEASE REPEAT CBC, BMP TUESDAY AND Q WEEK CALL DR. GLEZ OFFICE TO MAKE AN APPOINTMENT FO RF/U FOR POSSIBLE CYSTO KEEP VARGAS CATH IN UNTIL DR. GLEZ SEEN PT OR INSTRUCTED TO D/C VARGAS CONTINUE MEDICATION PER MED. PLEASE F/U WITH DR. MONCADA OFFICE SCHEDULED BEFORE - F/U HP SURGERY Referrals: Jaxon Rollins MD [Staff Provider] - Erendira Glez MD [Staff Provider] -
[2016-12-10] MEDS ORDERED: Influenza Virus Vaccine 45 mcg/0.5 ml Syr (36 months - 7 yrs) IM ONE (10:00)
[2016-12-10] MEDS ORDERED: Influenza Vaccine 60 mcg/0.5 mL SYR (4YR UP) IM ONE (10:00)
--- NOTE | 2016-12-12 06:42 | CARD ---
APPROVED REPORT EKG Measurement Heart [id number] TN [id number] <Conclusion> Sinus tachycardia Otherwise normal ECG
--- NOTE | 2016-12-13 07:06 | CON ---
UROLOGY CONSULTATION DATE: 12/08/2016 UROLOGY CONSULTATION REQUESTED BY: Dr. Jaxon Rollins. UROLOGY CONSULTATION FILLED BY: Dr. Erendira Glez. REASON FOR CONSULTATION: Urinary retention. Azotemia. HISTORY OF PRESENT ILLNESS: The patient is an 81-year-old male with urinary retention. The patient is in otherwise fair health. The patient was admitted with renal failure. The patient has history of COPD. Hypertension. The patient has history of alcohol and tobacco use. The patient recently had left hip surgery. He was transferred subsequently to the rehab center for evaluation of hyperkalemia. The patient has history of previous prostate surgery. He underwent the orthopedic surgery in November. Mr. Walker reports that he had difficulty voiding. He presented to the Emergency Room where Cummings catheter was inserted. On admission to the Emergency Room the patient was found to have a BUN of 73. Creatinine of 5.9. Also on admission the patient was noted to have anemia with hematocrit of 28. The patient reports normal appetite. No flank pain. No abdominal pain. The patient reports that he has not been walking yet. PHYSICAL EXAMINATION: GENERAL: Patient well-developed, thin elderly male. The patient is awake and alert. The patient is comfortable. ABDOMEN: Soft, nontender and nondistended. No mass or organomegaly. BACK: No CVA tenderness. 2.28 GENITALIA: Without inflammation. The urine is lori via the Cummings catheter. IMPRESSION: Urinary retention. Renal failure. History of hypertension. History of chronic obstructive pulmonary disease. Recent hip fracture and hip surgery. RECOMMENDATIONS AND PLAN: Indwelling Cummings catheter. On tamsulosin. Urine culture. Serum PSA. Possible need for cystoscopy, cystogram and cystometrogram. Possible trial of voiding to follow once the patient's level of activity improves. Further therapy to follow according to the patient's clinical course as well as results of above. IMPRESSION: Urinary retention. Likely causes benign prostatic hypertrophy. 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 Also contributing factors includes patient's decreased level of activity associated with his other illnesses as described above. Thank you for recommending patient for urology consultation. I will discuss the matter further with the patient as well as with the hospital staff. Erendira Glez MD cc: Erendira Glez MD and Jaxon Rollins MD
[2016-12-14 14:27] LABS: ESTIM. PROBABILITY CANCER >50 Percent; TOTAL PSA 19.4 ng/mL (<=4.0)
== END 2016-12-09 20:55 | DRG 684 ==
LOC: C.ER 14:40 → C.9E 16:54 → C.6T 19:25
PROVIDERS: ADMIT Internal Medicine; ATTEND Internal Medicine
PROC: 30233N1 Transfusion of Nonautologous Red Blood Cells into Peripheral Vein, Percutaneous Approach (ICD-10-PCS; principal; 2016-12-09)
DX: N17.9 Acute kidney failure, unspecified (principal); E87.5 Hyperkalemia; D69.6 Thrombocytopenia, unspecified; I10 Essential (primary) hypertension; I25.10 Atherosclerotic heart disease of native coronary artery without angina pectoris; J44.9 Chronic obstructive pulmonary disease, unspecified; R33.9 Retention of urine, unspecified; R53.1 Weakness; F17.210 Nicotine dependence, cigarettes, uncomplicated; Z86.73 Personal history of transient ischemic attack (TIA), and cerebral infarction without residual deficits; S72.142S Displaced intertrochanteric fracture of left femur, sequela; W19.XXXS Unspecified fall, sequela

== ENCOUNTER 2016-12-27 07:55 | Emergency (ER) | payer MEDICAID, MEDICARE ==
[2016-12-27 07:56] VITALS: PULSE 120
--- NOTE | 2016-12-27 08:06 | C.PDOC ---
History Of Present Illness Patient is an 81 y/o M, admitted to the hospital on 12/12 for urinary retention thought secondary to enlarged prostate, with elevated bun/creatinine, s/p sparrow insertion, presenting for urology follow-up. Patient had biopsy results consistent with prostate cancer. Dr. Erendira Glez called ahead and is requesting psa, testosterone level, chem, cbc, urinalysis, ucx. Patient denies abdominal pain, fever, chest pain, shortness of breath. Reports that sparrow is draining well. Time Seen by Provider: 12/27/16 08:01 Past Medical History Vital Signs: Last Vital Signs Temp 97.5 F L 12/27/16 11:07 Pulse 96 H 12/27/16 11:07 Resp 16 12/27/16 11:07 BP 121/69 12/27/16 11:07 Pulse Ox 99 12/27/16 11:07 - Medical History PMH: COPD, HTN Denies: Chronic Kidney Disease - [facility] Procedures CLOSURE SKIN & SUBCUTANEOUS NEC (11/16/12) EXCISION OF PROSTATE, VIA OPENING, DIAGN (08/30/16) FLUOROSCOPY OF LEFT HEART USING LOW OSMOLAR CONTRAST (08/30/16) FLUOROSCOPY OF MULT COR ART USING L OSM CONTRAST (08/30/16) MEASURE OF ARTERIAL PRESSURE, PERIPHERAL, SENIOR PRODUCT INTEGRITY ENGINEER APPROACH (08/30/16) MEASURE OF CARDIAC SAMPL & PRESSURE, L HEART, PERC APPROACH (08/30/16) MEASUREMENT OF CARDIAC RHYTHM, EXTERNAL APPROACH (08/30/16) REPAIR FACE SKIN, EXTERNAL APPROACH (08/30/16) REPOSITION LEFT UPPER FEMUR WITH INTRAMED FIX, PERC APPROACH (11/20/16) TRANSFUSE NONAUT RED BLOOD CELLS IN PERIPH VEIN, PERC (12/07/16) ULTRASONOGRAPHY OF PROSTATE AND SEMINAL VESICLES (08/30/16) Family History: States: No Known Family Hx - Social History Hx Tobacco Use: No Hx Alcohol Use: Yes Hx Substance Use: No - Immunization History Hx Tetanus Toxoid Vaccination: No Hx Influenza Vaccination: Yes Hx Pneumococcal Vaccination: No Review Of Systems Except As Marked, All Systems Reviewed And Found Negative. Constitutional: Negative for: Fever, Chills Eyes: Negative for: Pain Cardiovascular: Negative for: Chest Pain Respiratory: Negative for: Cough, Shortness of Breath, SOB with Excertion, Wheezing Gastrointestinal: Negative for: Nausea, Vomiting, Abdominal Pain, Diarrhea, Constipation Genitourinary: Negative for: Dysuria, Penile Discharge, Scrotal Pain, Penile Pain Skin: Negative for: Rash Neurological: Negative for: Weakness, Numbness Psych: Negative for: Anxiety Physical Exam - Physical Exam Appears: Well, Non-toxic, No Acute Distress Skin: Normal Color, Warm, Dry Head: Atraumatic, Normacephalic Eye(s): bilateral: Normal Inspection, PERRL, EOMI Neck: Supple Chest: Symmetrical Cardiovascular: Rhythm Regular Respiratory: Normal Breath Sounds Gastrointestinal/Abdominal: Soft, No Tenderness, No Mass, No Distention Back: Normal Inspection, No CVA Tenderness Male Genital: No Testicular Tenderness, No Testicular Swelling, No Scrotal Swelling, Circumcised, Other (sparrow in place, draining well) Extremity: Normal ROM Neurological/Psych: Oriented x3, Normal Cranial Nerves Gait: Steady ED Course And Treatment - Laboratory Results Result Diagrams: 12/27/16 09:10 12/27/16 09:10 Medical Decision Making Medical Decision Makin:20AM Dr. Glez at bedside evaluating 10:34AM Dr. Glez requesting removal of sparrow. Patient already on flomax. Creatinine now WNL. Requesting dc with levaquin 500mg daily. Will coordinate further care for prostate mass as outpatient. Disposition - Disposition Referrals: Erendira Glez MD [Staff Provider] - Disposition: HOME/ ROUTINE Disposition Time: 10:41 Condition: GOOD Additional Instructions: Follow-up with Dr. Glez. Return to ED if you cannot urinate. Follow-up with PMD within 2 days. Return to ED if condition worsens. Take full course of antibiotics. Prescriptions: Levofloxacin [Levaquin] 500 mg PO DAILY #7 tablet Forms: [employer] (Tanzanian) - Clinical Impression Clinical Impression: Prostate mass, Encounter for Sparrow catheter removal
[2016-12-27 08:10] VITALS: TEMP 97.5
[2016-12-27 09:15] LABS: BASO # 0.1 K/uL (0.0-0.2); BASO % 1.5 % (0.0-2.0); EOS # 0.3 K/uL (0.0-0.7); EOS % 7.3 % (0.0-4.0); HEMATOCRIT 31.4 % (35.0-51.0); LYMPH # 1.3 K/uL (1.0-4.3); LYMPH % 28.2 % (20.0-40.0); MEAN CELL VOLUME 79.7 fL (80.0-94.0); MEAN CORPUSCULAR HEMOGLOBIN 26.4 pg (27.0-31.0); MEAN CORPUSCULAR HGB CONC 33.2 g/dL (33.0-37.0); MEAN PLATELET VOLUME 7.5 fL (7.2-11.7); MONO # 0.4 K/uL (0.0-0.8); MONO % 9.7 % (0.0-10.0); NRBC % 0.1 % (0.0-2.0); RED CELL DISTRIBUTION WIDTH 21.4 % (11.5-14.5); WHITE BLOOD COUNT 4.5 K/uL (4.8-10.8)
[2016-12-27 09:23] LABS: CHLORIDE 101 mmol/L (98-107)
[2016-12-27 09:24] LABS: POTASSIUM 3.6 mmol/L (3.6-5.2); SODIUM 131 mmol/L (132-148)
[2016-12-27 09:26] LABS: ALB/GLOB RATIO 0.9 (1.0-2.1); ALKALINE PHOSPHATASE 103 U/L (38-126); ALT/SGPT 22 U/L (21-72); AST/SGOT 23 U/L (17-59); BILIRUBIN,TOTAL 0.9 mg/dL (0.2-1.3); BLOOD UREA NITROGEN 10 mg/dL (9-20); CALCIUM 7.8 mg/dl (8.6-10.4); CARBON DIOXIDE 20 mmol/L (22-30); GFR AFRICAN-AMERICAN > 60; GLUCOSE,RANDOM 92 mg/dL (75-110); TOTAL PROTEIN 5.7 g/dL (6.3-8.3)
[2016-12-27 09:28] LABS: RBC URINE 4 /hpf (0-3); URINE BACTERIA RARE (<OCC); URINE BILIRUBIN NEGATIVE (NEGATIVE); URINE BLOOD NEGATIVE (NEGATIVE); URINE COLOR Yellow (YELLOW); URINE GLUCOSE (UA) NORMAL (Normal); URINE KETONE 1+ mg/dL (NEGATIVE); URINE LEUKOCYTE ESTERASE 2+ Leu/uL (Negative); URINE PROTEIN NEGATIVE (NEGATIVE); WBC URINE 18 /hpf (0-5)
[2016-12-27 09:58] LABS: TESTOSTERONE 29.3 ng/mL
[2016-12-27 11:08] VITALS: BP 121/69; PULSE 96; RESP 16; O2SAT 99
--- NOTE | 2016-12-27 12:26 | C.PDOC ---
History Of Present Illness Urology Consultation Full note to be dictated Imp: Prostate carcinoma Hx of urinary retention Hx of obstructive uropathy YS Time Seen by Provider: 12/27/16 08:01 Chief Complaint (Nursing): Male Genitourinary Past Medical History Vital Signs: Last Vital Signs Temp 97.5 F L 12/27/16 11:07 Pulse 96 H 12/27/16 11:07 Resp 16 12/27/16 11:07 BP 121/69 12/27/16 11:07 Pulse Ox 99 12/27/16 11:07 - Medical History PMH: COPD, HTN Denies: Chronic Kidney Disease - [employer] Procedures CLOSURE SKIN & SUBCUTANEOUS NEC (11/16/12) EXCISION OF PROSTATE, VIA OPENING, DIAGN (08/30/16) FLUOROSCOPY OF LEFT HEART USING LOW OSMOLAR CONTRAST (08/30/16) FLUOROSCOPY OF MULT COR ART USING L OSM CONTRAST (08/30/16) MEASURE OF ARTERIAL PRESSURE, PERIPHERAL, TRAFFIC WAREHOUSE SUPERVISOR APPROACH (08/30/16) MEASURE OF CARDIAC SAMPL & PRESSURE, L HEART, PERC APPROACH (08/30/16) MEASUREMENT OF CARDIAC RHYTHM, EXTERNAL APPROACH (08/30/16) REPAIR FACE SKIN, EXTERNAL APPROACH (08/30/16) REPOSITION LEFT UPPER FEMUR WITH INTRAMED FIX, PERC APPROACH (11/20/16) TRANSFUSE NONAUT RED BLOOD CELLS IN PERIPH VEIN, PERC (12/07/16) ULTRASONOGRAPHY OF PROSTATE AND SEMINAL VESICLES (08/30/16) Family History: States: No Known Family Hx - Social History Hx Tobacco Use: No Hx Alcohol Use: Yes Hx Substance Use: No - Immunization History Hx Tetanus Toxoid Vaccination: No Hx Influenza Vaccination: Yes Hx Pneumococcal Vaccination: No ED Course And Treatment - Laboratory Results Result Diagrams: 12/27/16 09:10 12/27/16 09:10 O2 Sat by Pulse Oximetry: 99 Disposition - Disposition Referrals: Erendira Glez MD [Staff Provider] - Disposition: HOME/ ROUTINE Disposition Time: 10:45 Condition: GOOD Additional Instructions: Follow-up with Dr. Glez. Return to ED if you cannot urinate. Follow-up with PMD within 2 days. Return to ED if condition worsens. Take full course of antibiotics. Prescriptions: Levofloxacin [Levaquin] 500 mg PO DAILY #7 tablet Forms: [employer] (Latvian) - Clinical Impression Clinical Impression: Prostate mass, Encounter for Cummings catheter removal
[2016-12-28 19:45] LABS: TOTAL PSA 5.9 ng/mL (<=4.0)
--- NOTE | 2016-12-29 13:09 | CON ---
UROLOGY CONSULTATION DATE: REQUESTNG PHYSICIAN: [facility] ER physician, Dr. Brewster. HISTORY OF PRESENT ILLNESS: The patient is an 82-year-old male with urinary retention. The patient was sent to the Emergency Room for urinary retention. Patient has an indwelling Cummings catheter. Last month, patient was admitted to [facility] with renal failure secondary to obstructive uropathy and urinary retention. The patient has a Cummings catheter. Patient initially had an elevated PSA. He was evaluated with a prostate ultrasound and biopsy, which revealed prostatic carcinoma, high grade. The patient reports that he has fair appetite. He reports occasional abdominal pain, occasional back pain. No recent fever or rigors. No hematuria. Patient has been receiving physical therapy at [facility]. He reports that he has walked "a little." Mr. Heller has additional medical history including hypertension and COPD. PHYSICAL EXAMINATION GENERAL: The patient is well-developed, thin, elderly male. ABDOMEN: Soft, nontender, nondistended, no mass or organomegaly. BACK: No CVA tenderness. GENITALIA: Without inflammation. Urine is emptied via the Cummings catheter. LABORATORY DATA: Hematocrit 31, white blood count 4100, BUN 10, creatinine 0.5. IMPRESSION: Urinary retention. Prostate carcinoma, as he had untreated it. RECOMMENDATION AND PLAN: Urine culture. Flomax b.i.d. Trial of voiding. Further therapy for prostatic carcinoma, possibly hormonal therapy, namely androgen deprivation therapy. Possible need for further urologic instrumentation including cystoscopy, TURP. Further therapy to follow according to the patient's clinical course, cover for relief of retention and for treatment of prostate carcinoma. Thank you for recommending the patient for urology consultation. Erendira Glez MD cc: Erendira Glez MD, Jaxon Rollins MD
== END 2016-12-27 12:01 | disposition home or self-care (01) ==
LOC: C.ER 07:55
DX: Z46.6 Encounter for fitting and adjustment of urinary device (principal); N42.89 Other specified disorders of prostate; I10 Essential (primary) hypertension; J44.9 Chronic obstructive pulmonary disease, unspecified; C61 Malignant neoplasm of prostate

== ENCOUNTER 2016-12-30 11:19 | Emergency (ER) | payer MEDICARE ==
[2016-12-30 11:19] VITALS: PULSE 120
[2016-12-30 11:31] VITALS: BMI 25.7
[2016-12-30 11:32] VITALS: TEMP 97.7
--- NOTE | 2016-12-30 11:56 | C.PDOC ---
History Of Present Illness 81 yr old male referred to ER from [place] for recurrent possible urinary retention. Vargas was unable to be placed in NH after multiple attempts. Patient complaints of "firmness" in the bladder area. Patient denies fever, chills, chest pain, SOB , nausea, vomiting, diarrhea, weakness or numbness. POOR HISTORIAN REFERRED FROM [place] FOR RECURRENT POSSIBLE URINARY RETENTION. UNABLE TO PLACE VARGAS IN NH AFTER MULT ATTEMPTS. PT CO "FIRMNESS" IN BLADDER AREA. NO OTHER ASSOC SX EXAM ABD +MILD DIST MILD SUPRAPUB TEND SOFT REMAINDER NEG Time Seen by Provider: 12/30/16 11:33 Chief Complaint (Nursing): Male Genitourinary History Per: Patient History/Exam Limitations: no limitations Onset/Duration Of Symptoms: Days Past Medical History Reviewed: Historical Data, Nursing Documentation, Vital Signs Vital Signs: Last Vital Signs Temp 97.7 F 12/30/16 11:30 Pulse 106 H 12/30/16 11:30 Resp 20 12/30/16 11:30 BP 100/66 12/30/16 11:30 Pulse Ox 99 12/30/16 12:15 - Medical History PMH: COPD, Fractures (left femur fracture), HTN - [facility] Procedures CLOSURE SKIN & SUBCUTANEOUS NEC (11/16/12) EXCISION OF PROSTATE, VIA OPENING, DIAGN (08/30/16) FLUOROSCOPY OF LEFT HEART USING LOW OSMOLAR CONTRAST (08/30/16) FLUOROSCOPY OF MULT COR ART USING L OSM CONTRAST (08/30/16) MEASURE OF ARTERIAL PRESSURE, PERIPHERAL, STEM FRAZER APPROACH (08/30/16) MEASURE OF CARDIAC SAMPL & PRESSURE, L HEART, PERC APPROACH (08/30/16) MEASUREMENT OF CARDIAC RHYTHM, EXTERNAL APPROACH (08/30/16) REPAIR FACE SKIN, EXTERNAL APPROACH (08/30/16) REPOSITION LEFT UPPER FEMUR WITH INTRAMED FIX, PERC APPROACH (11/20/16) TRANSFUSE NONAUT RED BLOOD CELLS IN PERIPH VEIN, PERC (12/07/16) ULTRASONOGRAPHY OF PROSTATE AND SEMINAL VESICLES (08/30/16) Family History: States: No Known Family Hx - Social History Hx Tobacco Use: No Hx Alcohol Use: No Hx Substance Use: No - Immunization History Hx Tetanus Toxoid Vaccination: Yes Hx Influenza Vaccination: Yes Hx Pneumococcal Vaccination: Yes Review Of Systems Except As Marked, All Systems Reviewed And Found Negative. Constitutional: Negative for: Fever, Chills Cardiovascular: Negative for: Chest Pain Respiratory: Negative for: Shortness of Breath Gastrointestinal: Negative for: Nausea, Vomiting, Diarrhea Genitourinary: Positive for: Other ((+) Urinary retention) Neurological: Negative for: Weakness, Numbness Physical Exam - Physical Exam Appears: Non-toxic, No Acute Distress Skin: Warm, Dry, No Rash Head: Atraumatic, Normacephalic Oral Mucosa: Moist Chest: Symmetrical, No Tenderness Cardiovascular: Rhythm Regular, No Murmur Respiratory: Normal Breath Sounds, No Rales, No Rhonchi, No Stridor, No Wheezing Gastrointestinal/Abdominal: Soft, Tenderness (Superpubic ), Distention (Mild ), No Guarding, No Rebound Extremity: Normal ROM, No Swelling Neurological/Psych: Oriented x3, Normal Speech, Normal Motor ED Course And Treatment O2 Sat by Pulse Oximetry: 99 (RA) Pulse Ox Interpretation: Normal Progress - Re-Evaluation Re-evaluation Note: 12/30/16 11:54 D/W DR Maricel GLEZ: SP VARGAS REMOVAL 12/28 IN ER BUT PT HAS NOT VOIDED SINCE REMOVAL. DR Dorian GLEZ TO EVAL IN ER, FOR REPEAT VARGAS PLACEMENT 12/30/16 12:36 SP VARGAS PLACEMENT, PT CLEARED FOR DC - Data Reviewed Data Reviewed: Old records Disposition Counseled Patient/Family Regarding: Diagnosis - Disposition Referrals: Erendira Glez MD [Staff Provider] - Disposition: HOME/ ROUTINE Disposition Time: 12:36 Condition: IMPROVED Instructions: Urinary Retention in Men (ED) Forms: [facility] (Afghan) - Clinical Impression Clinical Impression: Acute urinary retention - Scribe Statement The provider has reviewed the documentation as recorded by the Anita Reza Provider Attestation: All medical record entries made by the Dottyibdorian were at my direction and personally dictated by me. I have reviewed the chart and agree that the record accurately reflects my personal performance of the history, physical exam, medical decision making, and the department course for this patient. I have also personally directed, reviewed, and agree with the discharge instructions and disposition.
[2016-12-30] MEDS ORDERED: Oxycodone/Acetaminophen 5/325 mg Tab PO STA (12:43)
[2016-12-30] MEDS ORDERED: Oxycodone/Acetaminophen 5/325 mg Tab ONE (12:49)
[2016-12-30 13:49] VITALS: BP 93/55; PULSE 100; RESP 18; O2SAT 96
--- NOTE | 2017-01-19 22:10 | C.PDOC ---
History Of Present Illness cc: urinary retention Hx of prostate problems Pt had trial of voiding. Catheter was unable to be reinserted Now transferred to ER Time Seen by Provider: 12/30/16 11:33 Chief Complaint (Nursing): Male Genitourinary Past Medical History Vital Signs: Last Vital Signs Temp 97.7 F 12/30/16 11:30 Pulse 100 H 12/30/16 13:48 Resp 18 12/30/16 13:48 BP 93/55 L 12/30/16 13:48 Pulse Ox 96 12/30/16 13:48 - Medical History PMH: COPD, Fractures (left femur fracture), HTN Denies: Chronic Kidney Disease - [employer] Procedures CLOSURE SKIN & SUBCUTANEOUS NEC (11/16/12) EXCISION OF PROSTATE, VIA OPENING, DIAGN (08/30/16) FLUOROSCOPY OF LEFT HEART USING LOW OSMOLAR CONTRAST (08/30/16) FLUOROSCOPY OF MULT COR ART USING L OSM CONTRAST (08/30/16) MEASURE OF ARTERIAL PRESSURE, PERIPHERAL, INSERTING MACHINE OPERATOR APPROACH (08/30/16) MEASURE OF CARDIAC SAMPL & PRESSURE, L HEART, PERC APPROACH (08/30/16) MEASUREMENT OF CARDIAC RHYTHM, EXTERNAL APPROACH (08/30/16) REPAIR FACE SKIN, EXTERNAL APPROACH (08/30/16) REPOSITION LEFT UPPER FEMUR WITH INTRAMED FIX, PERC APPROACH (11/20/16) TRANSFUSE NONAUT RED BLOOD CELLS IN PERIPH VEIN, PERC (12/07/16) ULTRASONOGRAPHY OF PROSTATE AND SEMINAL VESICLES (08/30/16) Family History: States: No Known Family Hx - Social History Hx Tobacco Use: No Hx Alcohol Use: No Hx Substance Use: No - Immunization History Hx Tetanus Toxoid Vaccination: Yes Hx Influenza Vaccination: Yes Hx Pneumococcal Vaccination: Yes Physical Exam - Physical Exam Appears: Non-toxic, No Acute Distress Gastrointestinal/Abdominal: Normal Exam, Bowel Sounds, No Tenderness, Mass, Distention, No Guarding Back: Normal Inspection, No CVA Tenderness Male Genital: Normal Inspection ED Course And Treatment O2 Sat by Pulse Oximetry: 96 Progress Note: Imp: urinary retentio. P: Cummings catheter inserted. Cummings cath to leg bag. outpatient f/u. Erendira Glez MD Disposition - Disposition Referrals: Erendira Glez MD [Staff Provider] - Disposition: HOME/ ROUTINE Disposition Time: 00:30 Condition: IMPROVED Instructions: Urinary Retention in Men (ED) Forms: [employer] (Italian) - Clinical Impression Clinical Impression: Acute urinary retention
== END 2016-12-30 13:49 | disposition home or self-care (01) ==
LOC: C.ER 11:19
DX: R33.8 Other retention of urine (principal)

== ENCOUNTER 2017-01-21 14:13 | Inpatient (IN) | payer MEDICARE ==
[2017-01-21 14:13] VITALS: PULSE 120
--- NOTE | 2017-01-21 14:22 | C.PDOC ---
History Of Present Illness 81M biba from SNF for reports of difficulty breathing starting 1 hour ago. pt has audible cough which he says he has had "for a long time." hx of smoking and COPD. pt denies any complaints at this time. Time Seen by Provider: 01/21/17 14:18 Past Medical History Vital Signs: Last Vital Signs Temp 98.1 F 01/26/17 07:50 Pulse 64 01/26/17 08:48 Resp 20 01/26/17 07:50 BP 118/68 01/26/17 07:50 Pulse Ox 98 01/26/17 07:50 - Medical History PMH: COPD, Fractures (left femur fracture), HTN - [facility] Procedures CLOSURE SKIN & SUBCUTANEOUS NEC (11/16/12) EXCISION OF PROSTATE, VIA OPENING, DIAGN (08/30/16) FLUOROSCOPY OF LEFT HEART USING LOW OSMOLAR CONTRAST (08/30/16) FLUOROSCOPY OF MULT COR ART USING L OSM CONTRAST (08/30/16) MEASURE OF ARTERIAL PRESSURE, PERIPHERAL, PROCESSING ASSOCIATE APPROACH (08/30/16) MEASURE OF CARDIAC SAMPL & PRESSURE, L HEART, PERC APPROACH (08/30/16) MEASUREMENT OF CARDIAC RHYTHM, EXTERNAL APPROACH (08/30/16) REPAIR FACE SKIN, EXTERNAL APPROACH (08/30/16) REPOSITION LEFT UPPER FEMUR WITH INTRAMED FIX, PERC APPROACH (11/20/16) TRANSFUSE NONAUT RED BLOOD CELLS IN PERIPH VEIN, PERC (12/07/16) ULTRASONOGRAPHY OF PROSTATE AND SEMINAL VESICLES (08/30/16) Family History: States: Other Other Family History: nc - Social History Hx Tobacco Use: No Hx Alcohol Use: No Hx Substance Use: No - Immunization History Hx Tetanus Toxoid Vaccination: Yes Hx Influenza Vaccination: Yes Hx Pneumococcal Vaccination: Yes Review Of Systems Except As Marked, All Systems Reviewed And Found Negative. Constitutional: Negative for: Fever, Chills Cardiovascular: Negative for: Chest Pain Respiratory: Positive for: Cough, Sputum. Negative for: Shortness of Breath Gastrointestinal: Negative for: Vomiting, Abdominal Pain Neurological: Negative for: Headache Physical Exam - Physical Exam Appears: No Acute Distress Skin: Warm, Dry Head: Atraumatic Eye(s): bilateral: PERRL Nose: No Epistaxis Oral Mucosa: Moist Neck: Supple Cardiovascular: Rhythm Regular Respiratory: No Accessory Muscle Use, Rhonchi Gastrointestinal/Abdominal: Soft, No Tenderness Extremity: No Swelling Pulses: Left Radial: Normal, Right Radial: Normal Neurological/Psych: Oriented x3, Other (no focal deficits) ED Course And Treatment - Laboratory Results Result Diagrams: 01/26/17 11:53 01/26/17 11:53 Disposition - Disposition Disposition: HOSPITALIZED Disposition Time: 16:32 Condition: SERIOUS - Clinical Impression Clinical Impression: Pneumonia, Sepsis
[2017-01-21] MEDS ORDERED: Albuterol-Ipratrop 3 mg / 0.5 (3 ml) UD IH STA (14:30)
[2017-01-21] MEDS ORDERED: Albuterol-Ipratrop 3 mg / 0.5 (3 ml) UD ONE (14:40)
[2017-01-21] MEDS ORDERED: MethylPREDNISolone 40 mg Vial ONE (14:41)
[2017-01-21 14:49] LABS: VENOUS BLOOD GAS BASE EXCESS -5.1 mmol/L (0.0-2.0); VENOUS BLOOD GAS PCO2 36 mmHg (40-60); VENOUS BLOOD PH 7.35 (7.32-7.43)
[2017-01-21 14:49] LABS: BASO # 0.2 K/uL (0.0-0.2); EOS % 0.1 % (0.0-4.0); LYMPH # 1.1 K/uL (1.0-4.3); LYMPH % 7.7 % (20.0-40.0); MEAN CELL VOLUME 82.3 fL (80.0-94.0); MEAN CORPUSCULAR HEMOGLOBIN 26.5 pg (27.0-31.0); MEAN CORPUSCULAR HGB CONC 32.2 g/dL (33.0-37.0); MEAN PLATELET VOLUME 7.9 fL (7.2-11.7); MONO # 0.7 K/uL (0.0-0.8); MONO % 4.6 % (0.0-10.0); NRBC % 0.1 % (0.0-2.0); PLATELET COUNT 424 K/uL (130-400); RED CELL DISTRIBUTION WIDTH 22.3 % (11.5-14.5); WHITE BLOOD COUNT 14.9 K/uL (4.8-10.8)
[2017-01-21] MEDS ORDERED: Azithromycin 500 MG in Sodium Chloride 0.9% 250 ML IVPB STA (14:50)
[2017-01-21] MEDS ORDERED: Piperacill/Tazo 4.5gm in Dex 4.5 GM/100 ML BAG IVPB STA (14:50)
[2017-01-21 15:00] LABS: BILIRUBIN,TOTAL 2.1 mg/dL (0.2-1.3); CALCIUM 7.9 mg/dl (8.6-10.4); GFR AFRICAN-AMERICAN > 60; GLUCOSE,RANDOM 125 mg/dL (75-110); TOTAL PROTEIN 6.9 g/dL (6.3-8.3)
[2017-01-21 15:04] LABS: ALB/GLOB RATIO 0.8 (1.0-2.1); ALKALINE PHOSPHATASE 114 U/L (38-126); ALT/SGPT 22 U/L (21-72); AST/SGOT 35 U/L (17-59); BLOOD UREA NITROGEN 33 mg/dL (9-20); CARBON DIOXIDE 18 mmol/L (22-30); CHLORIDE 103 mmol/L (98-107); POTASSIUM 3.8 mmol/L (3.6-5.2); SODIUM 136 mmol/L (132-148)
[2017-01-21 15:10] LABS: EOSINOPHIL 1 % (0-4); NEUTROPHIL 86 % (50-75); TOTAL CELLS COUNTED 100
--- NOTE | 2017-01-21 15:40 | RAD ---
HISTORY: sob COMPARISON: 12/07/2016 FINDINGS: LUNGS: New opacity at lateral right lung base concerning for pneumonia. Vaguely nodular opacity at left base not appreciated on prior examination. Possible nipple shadow. No pulmonary mass identified at left base on recent chest CT examination of 12/01/2016. PLEURA: No pleural effusion or pneumothorax. Scattered small areas of calcified pleural plaque bilaterally. Bilateral apical pleural thickening noted. CARDIOVASCULAR: Normal. OSSEOUS STRUCTURES: No significant abnormalities. VISUALIZED UPPER ABDOMEN: Normal. OTHER FINDINGS: None. IMPRESSION: New ill-defined opacity at lateral right lung base concerning for pneumonia. Calcified multifocal pleural plaque. Nodular opacity at left lung base, possibly nipple shadow. Consider repeat PA chest with radiopaque nipple marker when clinically feasible. Bilateral apical pleural thickening.
[2017-01-21 16:05] LABS: RBC URINE 49 /hpf (0-3); URINE BACTERIA RARE (<OCC); URINE BILIRUBIN NEGATIVE (NEGATIVE); URINE BLOOD 1+ (NEGATIVE); URINE COLOR YELLOW (YELLOW); URINE GLUCOSE (UA) NORMAL (Normal); URINE KETONE NEGATIVE (NEGATIVE); URINE LEUKOCYTE ESTERASE 2+ Leu/uL (Negative); URINE PROTEIN 2+ mg/dL (NEGATIVE); WBC URINE 671 /hpf (0-5)
[2017-01-21] MEDS ORDERED: Lactated Ringer's 1,000 ML IV ONE (16:35)
[2017-01-21] MEDS ORDERED: guaiFENesin 200 mg/10 ml Syrup UD PO PRN (16:59)
[2017-01-21] MEDS ORDERED: Sodium Chloride 0.9% 1,000 ML ONE (17:38)
[2017-01-21] MEDS ORDERED: Lactated Ringer's 1,000 ML ONE (17:38)
[2017-01-21] MEDS: Sodium Chloride 0.9% 1,000 ML IV SCH (17:40)
[2017-01-21] MEDS ORDERED: Vancomycin 1 gm/NS 200 ml 1 GM/200 ML BAG IVPB ONE (18:00)
[2017-01-21 20:34] LABS: VENOUS BLOOD GAS BASE EXCESS -6.2 mmol/L (0.0-2.0); VENOUS BLOOD GAS PCO2 30 mmHg (40-60); VENOUS BLOOD PH 7.38 (7.32-7.43)
[2017-01-21] MEDS: Piperacill/Tazo 3.375gm in Dex 3.375 GM/50 ML BAG IVPB SCH (22:03)
[2017-01-21] MEDS: (Novolog) Insulin Aspart, Recombinant 100 u/ml 10 ml vial SC SCH (22:09)
--- NOTE | 2017-01-21 23:36 | CP.PCM.HP ---
History of Present Illness - History of Present Illness History of Present Illness: CC: fever, cough, low B.P HPI: 81 white male well knwon t me with h/o HTN, Hyperlipidemia, carotid stenosis s/p left hip fracture , resident in rehab [facility] from [facility] for reports of difficulty breathing starting 1 hour ago. pt has audible cough which he says he has had "for a long time." hx of smoking and COPD. pt denies any complaints at this time. Pt c/o generalized weakness, anorexia, malaise, sprogressive sob since 1 week, along with that he also have dysuria and cloudy urine, he has nausea, denies vomitting, he c/o chills, rigors, joint pains, pt has knee pain, hip pain Present on Admission - Present on Admission Any Indicators Present on Admission: Yes Past Patient History - Infectious Disease Hx of Infectious Diseases: None - Past Medical History & Family History Past Medical History?: No - Past Social History Smoking Status: Light Smoker < 10 Cigarettes Daily - CARDIAC Hx Hypertension: Yes - PULMONARY Hx Chronic Obstructive Pulmonary Disease (COPD): Yes - NEUROLOGICAL Hx Neurological Disorder: Yes HX Cerebrovascular Accident: Yes (7 YEARS AGO) - HEENT Hx HEENT Problems: No - ENDOCRINE/METABOLIC Hx Endocrine Disorders: No - HEMATOLOGICAL/ONCOLOGICAL Hx Blood Disorders: No - INTEGUMENTARY Hx Dermatological Problems: No - MUSCULOSKELETAL/RHEUMATOLOGICAL Hx Fractures: Yes (left femur fracture) - GASTROINTESTINAL Hx Gastrointestinal Disorders: No - GENITOURINARY/GYNECOLOGICAL Hx Genitourinary Disorders: Yes Other/Comment: uropathy, UTI - PSYCHIATRIC Hx Psychophysiologic Disorder: No Hx Substance Use: No - SURGICAL HISTORY Hx Surgeries: No - ANESTHESIA Hx Anesthesia: No Meds Home Medications: Home Medication List Medication Instructions Recorded Confirmed Type Acetaminophen [Tylenol 325mg tab] 650 mg PO Q6 PRN tab 01/28/17 Rx Albuterol/Ipratropium [Duoneb 3 3 ml INH RQ6 neb 01/28/17 Rx mg/0.5 mg (3 ml) UD] Clopidogrel [Plavix] 75 mg PO DAILY tab 01/28/17 Rx Famotidine [Pepcid] 20 mg PO DAILY tab 01/28/17 Rx Ferrous Sulfate [Feosol] 325 mg PO BID tab 01/28/17 Rx Fluconazole [Diflucan] 100 mg PO HS 4 Days tab 01/28/17 Rx Fluticasone/Salmeterol 250/50 1 puff INH RQ12 puff 01/28/17 Rx [Advair Diskus 250/50] Megestrol Acetate [Megace] 400 mg PO DAILY cup 01/28/17 Rx Potassium Chloride 20 meq PO DAILY #3 tab.er.prt 01/28/17 Rx guaiFENesin [Robitussin] 200 mg PO Q4H PRN udc 01/28/17 Rx Allergies/Adverse Reactions: Allergies Allergy/AdvReac Type Severity Reaction Status Date / Time No Known Allergies Allergy Verified 12/30/16 11:26 Physical Exam - Constitutional Appears: No Acute Distress, Chronically Ill - Head Exam Head Exam: ATRAUMATIC, NORMAL INSPECTION, NORMOCEPHALIC - Eye Exam Eye Exam: EOMI, Normal appearance, PERRL Pupil Exam: NORMAL ACCOMODATION, PERRL - Respiratory Exam Respiratory Exam: Clear to Auscultation Bilateral, NORMAL BREATHING PATTERN - Cardiovascular Exam Cardiovascular Exam: REGULAR RHYTHM - GI/Abdominal Exam GI & Abdominal Exam: Normal Bowel Sounds, Soft. absent: Tenderness - Exam Exam: Bladder Distension - Extremities Exam Additional comments: left hip surgical site is clean Results - Vital Signs Recent Vital Signs: Last Vital Signs Temp 97.3 F L 01/21/17 21:11 Pulse 80 01/21/17 21:15 Resp 20 01/21/17 21:11 BP 93/59 L 01/21/17 21:11 Pulse Ox 100 01/21/17 21:11 - Labs Result Diagrams: 01/28/17 11:14 01/28/17 11:14 Labs: Laboratory Results - last 24 hr 01/21/17 01/21/17 01/21/17 14:39 14:39 14:44 WBC 14.9 H D RBC 4.02 L Hgb 10.6 L Hct 33.0 L MCV 82.3 D MCH 26.5 L MCHC 32.2 L RDW 22.3 H Plt Count 424 H MPV 7.9 Neut % (Auto) 86.6 H Lymph % (Auto) 7.7 L [place] % (Auto) 4.6 Eos % (Auto) 0.1 Baso % (Auto) 1.0 Neut # 12.9 H Lymph # 1.1 [place] # 0.7 Eos # 0.0 Baso # 0.2 Neutrophils % (Manual) 86 H Band Neutrophils % 1 Lymphocytes % (Manual) 5 L Monocytes % (Manual) 7 Eosinophils % (Manual) 1 Platelet Estimate Slightly increased H Polychromasia Slight Hypochromasia (manual) Slight Anisocytosis (manual) Moderate Ovalocytes Slight pO2 10 L VBG pH 7.35 VBG pCO2 36 L VBG HCO3 18.5 VBG Total CO2 21.0 L VBG O2 Sat (Calc) 10.3 L VBG Base Excess -5.1 L VBG Potassium 4.1 Glucose 145 H Lactate 5.9 H* Crit Value Called To Crit Value Called By Trevor vergara,adult health clinical nurse specialist Crit Value Read Back Y Blood Gas Notified Time 1450 Sodium 136 139.0 Potassium 3.8 Chloride 103 106.0 Carbon Dioxide 18 L Anion Gap 19 BUN 33 H Creatinine 0.8 Est GFR ( Amer) > 60 Est GFR (Non-Af Amer) > 60 POC Glucose (mg/dL) Random Glucose 125 H Lactic Acid Calcium 7.9 L Total Bilirubin 2.1 H AST 35 ALT 22 Alkaline Phosphatase 114 Troponin I < 0.0120 NT-Pro-B Natriuret Pep 3870 H Total Protein 6.9 Albumin 3.2 L Globulin 3.8 Albumin/Globulin Ratio 0.8 L Venous Blood Potassium 4.1 Urine Color Urine Clarity Urine pH Ur Specific [place] Urine Protein Urine Glucose (UA) Urine Ketones Urine Blood Urine Nitrate Urine Bilirubin Urine Urobilinogen Ur Leukocyte Esterase Urine WBC (Auto) Urine RBC (Auto) Urine Bacteria Influenza Typ A,B (EIA) 01/21/17 01/21/17 01/21/17 15:52 17:37 20:04 WBC RBC Hgb Hct MCV MCH MCHC RDW Plt Count MPV Neut % (Auto) Lymph % (Auto) [place] % (Auto) Eos % (Auto) Baso % (Auto) Neut # Lymph # [place] # Eos # Baso # Neutrophils % (Manual) Band Neutrophils % Lymphocytes % (Manual) Monocytes % (Manual) Eosinophils % (Manual) Platelet Estimate Polychromasia Hypochromasia (manual) Anisocytosis (manual) Ovalocytes pO2 VBG pH VBG pCO2 VBG HCO3 VBG Total CO2 VBG O2 Sat (Calc) VBG Base Excess VBG Potassium Glucose Lactate Crit Value Called To Crit Value Called By Crit Value Read Back Blood Gas Notified Time Sodium Potassium Chloride Carbon Dioxide Anion Gap BUN Creatinine Est GFR ( Amer) Est GFR (Non-Af Amer) POC Glucose (mg/dL) 121 H Random Glucose Lactic Acid 0.7 Calcium Total Bilirubin AST ALT Alkaline Phosphatase Troponin I NT-Pro-B Natriuret Pep Total Protein Albumin Globulin Albumin/Globulin Ratio Venous Blood Potassium Urine Color Yellow Urine Clarity Hazy Urine pH 6.0 Ur Specific [place] 1.018 Urine Protein 2+ H Urine Glucose (UA) Normal Urine Ketones Negative Urine Blood 1+ H Urine Nitrate Positive H Urine Bilirubin Negative Urine Urobilinogen 2.0 Ur Leukocyte Esterase 2+ H Urine WBC (Auto) 671 H Urine RBC (Auto) 49 H Urine Bacteria Rare Influenza Typ A,B (EIA) 01/21/17 01/21/17 01/21/17 20:30 21:33 Unknown WBC RBC Hgb Hct MCV MCH MCHC RDW Plt Count MPV Neut % (Auto) Lymph % (Auto) [place] % (Auto) Eos % (Auto) Baso % (Auto) Neut # Lymph # [place] # Eos # Baso # Neutrophils % (Manual) Band Neutrophils % Lymphocytes % (Manual) Monocytes % (Manual) Eosinophils % (Manual) Platelet Estimate Polychromasia Hypochromasia (manual) Anisocytosis (manual) Ovalocytes pO2 66 H VBG pH 7.38 VBG pCO2 30 L VBG HCO3 20.0 VBG Total CO2 18.6 L VBG O2 Sat (Calc) 96.4 H VBG Base Excess -6.2 L VBG Potassium 2.7 L Glucose 105 Lactate 0.8 Crit Value Called To Crit Value Called By Crit Value Read Back Blood Gas Notified Time Sodium 142.0 Potassium Chloride 118.0 H Carbon Dioxide Anion Gap BUN Creatinine Est GFR ( Amer) Est GFR (Non-Af Amer) POC Glucose (mg/dL) 127 H Random Glucose Lactic Acid Calcium Total Bilirubin AST ALT Alkaline Phosphatase Troponin I NT-Pro-B Natriuret Pep Total Protein Albumin Globulin Albumin/Globulin Ratio Venous Blood Potassium 2.7 L Urine Color Urine Clarity Urine pH Ur Specific [place] Urine Protein Urine Glucose (UA) Urine Ketones Urine Blood Urine Nitrate Urine Bilirubin Urine Urobilinogen Ur Leukocyte Esterase Urine WBC (Auto) Urine RBC (Auto) Urine Bacteria Influenza Typ A,B (EIA) Negative for flu a/b Assessment & Plan (1) Acute urinary retention Assessment and Plan: antibiotics Urine culture urology eval Status: Acute (2) Elevated PSA Status: Acute (3) Encounter for Cummings catheter removal Status: Acute (4) HTN (hypertension) Status: Acute (5) Obstructive uropathy Status: Acute (6) Prostate cancer Status: Acute (7) UTI (urinary tract infection) due to urinary indwelling Cummings catheter Status: Acute
[2017-01-22] MEDS: Albuterol-Ipratrop 3 mg / 0.5 (3 ml) UD INH SCH ×4 (01:41→20:10)
[2017-01-22] MEDS: Sodium Chloride 0.9% 1,000 ML IV SCH ×3 (04:46→21:45)
[2017-01-22] MEDS: Piperacill/Tazo 3.375gm in Dex 3.375 GM/50 ML BAG IVPB SCH ×3 (05:01→21:04)
[2017-01-22 06:41] LABS: BASO % 0.2 % (0.0-2.0); HEMATOCRIT 25.1 % (35.0-51.0); LYMPH # 0.8 K/uL (1.0-4.3); LYMPH % 15.8 % (20.0-40.0); MEAN CELL VOLUME 81.4 fL (80.0-94.0); MEAN CORPUSCULAR HEMOGLOBIN 27.1 pg (27.0-31.0); MEAN CORPUSCULAR HGB CONC 33.3 g/dL (33.0-37.0); MEAN PLATELET VOLUME 7.7 fL (7.2-11.7); MONO # 0.1 K/uL (0.0-0.8); MONO % 2.5 % (0.0-10.0); RED CELL DISTRIBUTION WIDTH 22.4 % (11.5-14.5); WHITE BLOOD COUNT 4.9 K/uL (4.8-10.8)
[2017-01-22 06:47] LABS: INR 1.5
[2017-01-22 06:49] LABS: BLOOD UREA NITROGEN 28 mg/dL (9-20); CALCIUM 6.6 mg/dl (8.6-10.4); CARBON DIOXIDE 18 mmol/L (22-30); CHLORIDE 110 mmol/L (98-107); GFR AFRICAN-AMERICAN > 60; GLUCOSE,RANDOM 125 mg/dL (75-110); POTASSIUM 3.1 mmol/L (3.6-5.2); SODIUM 136 mmol/L (132-148)
[2017-01-22] MEDS: (Novolog) Insulin Aspart, Recombinant 100 u/ml 10 ml vial SC SCH ×4 (08:15→23:00)
[2017-01-22] MEDS: Vancomycin 1 gm/NS 200 ml 1 GM/200 ML BAG IVPB SCH (09:51)
[2017-01-22] MEDS ORDERED: Potassium Chloride 20 mEq ER Tab PO ONE (10:00)
[2017-01-22 10:04] LABS: MAGNESIUM 1.6 mg/dL (1.6-2.3)
[2017-01-22 17:34] LABS: PROSTATE SPECIFIC ANTIGEN 9.66 ng/mL (0.00-4.0)
[2017-01-22 17:37] LABS: TESTOSTERONE 40.7 ng/mL
[2017-01-22] MEDS: Fluticasone-Salmeterol 250-50mcg Diskus INH SCH (20:09)
--- NOTE | 2017-01-22 23:14 | CP.PCM.PN ---
Subjective - Date & Time of Evaluation Date of Evaluation: 01/22/17 Time of Evaluation: 17:35 - Subjective Subjective: Pt seen & evalauted, feeling better, sputum production, he is for urology eval Objective - Vital Signs/Intake and Output Vital Signs (last 24 hours): Temp Pulse Resp BP Pulse Ox 97.5 F L 73 16 92/51 L 99 01/22/17 17:31 01/22/17 15:40 01/22/17 15:40 01/22/17 17:31 01/22/17 15:40 - Medications Medications: Current Medications Acetaminophen (Tylenol 325mg Tab) 650 mg PO Q6 PRN PRN Reason: Pain, moderate (4-7) Last Admin: 01/22/17 21:05 Dose: 650 mg Albuterol/Ipratropium (Duoneb 3 Mg/0.5 Mg (3 Ml) Ud) 3 ml INH RQ6 [facility] Last Admin: 01/22/17 20:10 Dose: 3 ml Clopidogrel Bisulfate (Plavix) 75 mg PO DAILY [facility] Last Admin: 01/22/17 09:51 Dose: 75 mg Famotidine (Pepcid) 20 mg IVP DAILY [facility] Last Admin: 01/22/17 09:52 Dose: 20 mg Ferrous Sulfate (Feosol) 325 mg PO BID [facility] Last Admin: 01/22/17 17:27 Dose: 325 mg Guaifenesin (Robitussin) 200 mg PO Q4H PRN PRN Reason: Cough and congestion Heparin Sodium (Porcine) (Heparin) 5,000 units SC Q12 [facility] Last Admin: 01/22/17 21:04 Dose: 5,000 units Sodium Chloride (Sodium Chloride 0.9%) 1,000 mls @ 100 mls/hr IV .Q10H [facility] Last Admin: 01/22/17 04:52 Dose: 100 mls/hr Piperacillin Sod/Tazobactam Sod (Zosyn 3.375 Gm Iv Premix) 3.375 gm in 50 mls @ 100 mls/hr IVPB Q8 [facility] Last Admin: 01/22/17 21:04 Dose: 100 mls/hr Vancomycin/Sodium Chloride (Vancomycin 1 Gm/Ns 200 Ml) 1 gm in 200 mls @ 133 mls/hr IVPB DAILY [facility] Stop: 01/27/17 10:01 Last Admin: 01/22/17 09:51 Dose: 133 mls/hr Insulin Aspart (Novolog) 0 unit SC ACHS [facility] PRN Reason: Protocol Last Admin: 01/22/17 17:27 Dose: Not Given Fluticasone/Salmeterol (Advair Diskus 250/50) 1 puff INH RQ12 [facility] Last Admin: 01/22/17 20:09 Dose: 1 puff - Labs Labs: 01/22/17 06:32 01/22/17 06:32 PT 16.8 SECONDS (9.7-12.2) H 01/22/17 06:32 INR 1.5 01/22/17 06:32 APTT 34 SECONDS (21-34) 01/22/17 06:32 - Constitutional Appears: No Acute Distress, Chronically Ill - Head Exam Head Exam: ATRAUMATIC, NORMAL INSPECTION, NORMOCEPHALIC - Respiratory Exam Respiratory Exam: Decreased Breath Sounds, Rales, Rhonchi, Wheezes - Cardiovascular Exam Cardiovascular Exam: REGULAR RHYTHM, +S1, +S2. absent: Murmur - GI/Abdominal Exam GI & Abdominal Exam: Soft, Normal Bowel Sounds. absent: Tenderness - Neurological Exam Neurological Exam: Alert, Awake, CN II-XII Intact, Normal Gait, Oriented x3 - Psychiatric Exam Psychiatric exam: Normal Affect, Normal Mood Assessment and Plan (1) Pneumonia Status: Acute (2) Acute renal failure Status: Acute (3) Dizziness Status: Acute (4) HTN (hypertension) Status: Acute (5) UTI (urinary tract infection) Status: Acute (6) Weakness generalized Status: Acute
[2017-01-23] MEDS: Albuterol-Ipratrop 3 mg / 0.5 (3 ml) UD INH SCH ×4 (01:06→20:07)
[2017-01-23] MEDS: Sodium Chloride 0.9% 1,000 ML IV SCH ×3 (03:55→14:56)
[2017-01-23] MEDS: Piperacill/Tazo 3.375gm in Dex 3.375 GM/50 ML BAG IVPB SCH ×2 (05:56→14:52)
[2017-01-23] MEDS: (Novolog) Insulin Aspart, Recombinant 100 u/ml 10 ml vial SC SCH ×4 (06:51→22:16)
[2017-01-23] MEDS: Fluticasone-Salmeterol 250-50mcg Diskus INH SCH ×2 (07:41→20:07)
[2017-01-23] MEDS ORDERED: Influenza Vaccine 60 mcg/0.5 mL SYR (4YR UP) IM ONE (10:00)
[2017-01-23] MEDS: Vancomycin 1 gm/NS 200 ml 1 GM/200 ML BAG IVPB SCH (10:39)
[2017-01-23 11:34] LABS: HEMATOCRIT 26.7 % (35.0-51.0); MEAN CELL VOLUME 82.3 fL (80.0-94.0); MEAN CORPUSCULAR HEMOGLOBIN 26.8 pg (27.0-31.0); MEAN CORPUSCULAR HGB CONC 32.5 g/dL (33.0-37.0); MEAN PLATELET VOLUME 7.9 fL (7.2-11.7); RED CELL DISTRIBUTION WIDTH 22.7 % (11.5-14.5); WHITE BLOOD COUNT 5.5 K/uL (4.8-10.8)
[2017-01-23 11:55] LABS: BLOOD UREA NITROGEN 18 mg/dL (9-20); CALCIUM 7.2 mg/dl (8.6-10.4); CARBON DIOXIDE 18 mmol/L (22-30); CHLORIDE 113 mmol/L (98-107); GFR AFRICAN-AMERICAN > 60; GLUCOSE,RANDOM 78 mg/dL (75-110); POTASSIUM 3.6 mmol/L (3.6-5.2); SODIUM 139 mmol/L (132-148)
[2017-01-23] MEDS ORDERED: Potassium Chloride 20 mEq/15 ml LIQ UD PO ONE (16:00)
--- NOTE | 2017-01-23 20:44 | CP.PCM.PN ---
Subjective - Date & Time of Evaluation Date of Evaluation: 01/23/17 Time of Evaluation: 18:00 - Subjective Subjective: Pt is doing better, less cough, less short of breath, foleys with cloudy urine Objective - Vital Signs/Intake and Output Vital Signs (last 24 hours): Temp Pulse Resp BP Pulse Ox 97.7 F 76 20 114/61 98 01/23/17 15:20 01/23/17 15:20 01/23/17 15:20 01/23/17 15:20 01/23/17 15:20 - Medications Medications: Current Medications Acetaminophen (Tylenol 325mg Tab) 650 mg PO Q6 PRN PRN Reason: Pain, moderate (4-7) Last Admin: 01/23/17 17:43 Dose: 650 mg Albuterol/Ipratropium (Duoneb 3 Mg/0.5 Mg (3 Ml) Ud) 3 ml INH RQ6 [facility] Last Admin: 01/23/17 20:07 Dose: 3 ml Clopidogrel Bisulfate (Plavix) 75 mg PO DAILY [facility] Last Admin: 01/23/17 10:30 Dose: 75 mg Famotidine (Pepcid) 20 mg IVP DAILY [facility] Last Admin: 01/23/17 10:40 Dose: 20 mg Ferrous Sulfate (Feosol) 325 mg PO BID [facility] Last Admin: 01/23/17 17:42 Dose: 325 mg Guaifenesin (Robitussin) 200 mg PO Q4H PRN PRN Reason: Cough and congestion Heparin Sodium (Porcine) (Heparin) 5,000 units SC Q12 [facility] Last Admin: 01/23/17 10:30 Dose: 5,000 units Sodium Chloride (Sodium Chloride 0.9%) 1,000 mls @ 100 mls/hr IV .Q10H [facility] Last Admin: 01/23/17 14:56 Dose: 100 mls/hr Vancomycin/Sodium Chloride (Vancomycin 1 Gm/Ns 200 Ml) 1 gm in 200 mls @ 133 mls/hr IVPB DAILY [facility] Stop: 01/27/17 10:01 Last Admin: 01/23/17 10:39 Dose: 133 mls/hr Insulin Aspart (Novolog) 0 unit SC ACHS [facility] PRN Reason: Protocol Last Admin: 01/23/17 17:30 Dose: Not Given Fluticasone/Salmeterol (Advair Diskus 250/50) 1 puff INH RQ12 [facility] Last Admin: 01/23/17 20:07 Dose: 1 puff - Labs Labs: 01/23/17 11:28 01/23/17 11:28 PT 16.8 SECONDS (9.7-12.2) H 01/22/17 06:32 INR 1.5 01/22/17 06:32 APTT 34 SECONDS (21-34) 01/22/17 06:32 - Constitutional Appears: No Acute Distress, Chronically Ill - Head Exam Head Exam: ATRAUMATIC, NORMAL INSPECTION, NORMOCEPHALIC - Eye Exam Eye Exam: EOMI, Normal appearance, PERRL Pupil Exam: NORMAL ACCOMODATION, PERRL - ENT Exam ENT Exam: Mucous Membranes Moist, Normal Exam - Respiratory Exam Respiratory Exam: Decreased Breath Sounds, Rales, Rhonchi - Cardiovascular Exam Cardiovascular Exam: REGULAR RHYTHM, +S1, +S2. absent: Murmur - GI/Abdominal Exam GI & Abdominal Exam: Soft, Normal Bowel Sounds. absent: Tenderness Assessment and Plan (1) Pneumonia Status: Acute (2) Acute renal failure Status: Acute (3) Acute urinary retention Assessment & Plan: for urology eval for uti Status: Acute (4) Dizziness Status: Acute (5) HTN (hypertension) Status: Acute (6) UTI (urinary tract infection) Status: Acute
[2017-01-24] MEDS: Albuterol-Ipratrop 3 mg / 0.5 (3 ml) UD INH SCH ×4 (01:37→19:52)
[2017-01-24] MEDS: (Novolog) Insulin Aspart, Recombinant 100 u/ml 10 ml vial SC SCH ×4 (08:23→21:43)
[2017-01-24] MEDS: Fluticasone-Salmeterol 250-50mcg Diskus INH SCH ×2 (08:51→19:52)
--- NOTE | 2017-01-24 09:11 | RAD ---
PROCEDURE: Left Ankle Radiographs. HISTORY: pain in ankle COMPARISON: None FINDINGS: BONES: No acute fracture. Status post ORIF medial malleolar fracture. Ossification of distal inner osseous membrane. JOINTS: Normal. No osteoarthritis. Ankle mortise maintained. Talar dome intact SOFT TISSUES: Normal. OTHER FINDINGS: None. IMPRESSION: No acute fracture.
[2017-01-24] MEDS: Vancomycin 1 gm/NS 200 ml 1 GM/200 ML BAG IVPB SCH (10:03)
[2017-01-24] MEDS ORDERED: Dextrose 50% SYRINGE Inj (50 ml) IV ONE (11:30)
[2017-01-24] MEDS ORDERED: Dextrose 50% SYRINGE Inj (50 ml) ONE (11:31)
--- NOTE | 2017-01-24 12:05 | CARD ---
APPROVED REPORT EKG Measurement Heart [id number] <Conclusion> Sinus rhythm with premature atrial complexes Nonspecific T wave abnormality Prolonged QT Abnormal ECG
--- NOTE | 2017-01-24 12:27 | CP.PCM.CON ---
Past Patient History - Infectious Disease Hx of Infectious Diseases: None - Past Medical History & Family History Past Medical History?: No - Past Social History Smoking Status: Light Smoker < 10 Cigarettes Daily - CARDIAC Hx Hypertension: Yes - PULMONARY Hx Chronic Obstructive Pulmonary Disease (COPD): Yes - NEUROLOGICAL Hx Neurological Disorder: Yes HX Cerebrovascular Accident: Yes (7 YEARS AGO) - HEENT Hx HEENT Problems: No - RENAL Hx Chronic Kidney Disease: No - ENDOCRINE/METABOLIC Hx Endocrine Disorders: No - HEMATOLOGICAL/ONCOLOGICAL Hx Blood Disorders: No - INTEGUMENTARY Hx Dermatological Problems: No - MUSCULOSKELETAL/RHEUMATOLOGICAL Hx Fractures: Yes (left femur fracture) - GASTROINTESTINAL Hx Gastrointestinal Disorders: No - GENITOURINARY/GYNECOLOGICAL Hx Genitourinary Disorders: Yes Other/Comment: uropathy, UTI - PSYCHIATRIC Hx Psychophysiologic Disorder: No Hx Substance Use: No - SURGICAL HISTORY Hx Surgeries: No - ANESTHESIA Hx Anesthesia: No Meds Allergies/Adverse Reactions: Allergies Allergy/AdvReac Type Severity Reaction Status Date / Time No Known Allergies Allergy Verified 12/30/16 11:26 - Medications Medications: Current Medications Acetaminophen (Tylenol 325mg Tab) 650 mg PO Q6 PRN PRN Reason: Pain, moderate (4-7) Last Admin: 01/23/17 17:43 Dose: 650 mg Albuterol/Ipratropium (Duoneb 3 Mg/0.5 Mg (3 Ml) Ud) 3 ml INH RQ6 [facility] Last Admin: 01/24/17 07:20 Dose: 3 ml Clopidogrel Bisulfate (Plavix) 75 mg PO DAILY [facility] Last Admin: 01/24/17 10:03 Dose: 75 mg Famotidine (Pepcid) 20 mg IVP DAILY [facility] Last Admin: 01/24/17 10:04 Dose: 20 mg Ferrous Sulfate (Feosol) 325 mg PO BID [facility] Last Admin: 01/24/17 10:03 Dose: 325 mg Guaifenesin (Robitussin) 200 mg PO Q4H PRN PRN Reason: Cough and congestion Heparin Sodium (Porcine) (Heparin) 5,000 units SC Q12 [facility] Last Admin: 01/24/17 10:04 Dose: 5,000 units Sodium Chloride (Sodium Chloride 0.9%) 1,000 mls @ 100 mls/hr IV .Q10H [facility] Last Admin: 01/23/17 14:56 Dose: 100 mls/hr Vancomycin/Sodium Chloride (Vancomycin 1 Gm/Ns 200 Ml) 1 gm in 200 mls @ 133 mls/hr IVPB DAILY [facility] Stop: 01/27/17 10:01 Last Admin: 01/24/17 10:03 Dose: 133 mls/hr Insulin Aspart (Novolog) 0 unit SC ACHS [facility] PRN Reason: Protocol Last Admin: 01/24/17 08:23 Dose: Not Given Fluticasone/Salmeterol (Advair Diskus 250/50) 1 puff INH RQ12 [facility] Last Admin: 01/23/17 20:07 Dose: 1 puff Results - Vital Signs Recent Vital Signs: Last Vital Signs Temp 97.9 F 01/24/17 08:13 Pulse 81 01/24/17 08:13 Resp 20 01/24/17 08:13 BP 133/50 L 01/24/17 08:13 Pulse Ox 95 01/24/17 08:13 - Labs Result Diagrams: 01/23/17 11:28 01/23/17 11:28 Labs: Laboratory Results - last 24 hr 01/23/17 01/23/17 01/24/17 16:58 21:21 06:21 POC Glucose (mg/dL) 94 92 68 Vancomycin Trough 01/24/17 01/24/17 01/24/17 06:42 11:17 11:21 POC Glucose (mg/dL) 73 53 L Vancomycin Trough 11.5 H Assessment & Plan - Assessment and Plan (Free Text) Assessment: Imp: urinary retention prostate carcinoma full note to be dictated - t/f - Date & Time Date: 01/24/17 Time: 11:45
[2017-01-24] MEDS: Dextrose 5%/0.45% NS 1,000 ML IV SCH (21:54)
--- NOTE | 2017-01-24 23:33 | CP.PCM.PN ---
Subjective - Date & Time of Evaluation Date of Evaluation: 01/24/17 Time of Evaluation: 17:40 - Subjective Subjective: Pt seen and examined, feeling weak and dull, poor apetute Objective - Vital Signs/Intake and Output Vital Signs (last 24 hours): Temp Pulse Resp BP Pulse Ox 98.6 F 89 20 121/63 97 01/24/17 15:15 01/24/17 16:00 01/24/17 15:15 01/24/17 15:15 01/24/17 15:15 - Medications Medications: Current Medications Acetaminophen (Tylenol 325mg Tab) 650 mg PO Q6 PRN PRN Reason: Pain, moderate (4-7) Last Admin: 01/23/17 17:43 Dose: 650 mg Albuterol/Ipratropium (Duoneb 3 Mg/0.5 Mg (3 Ml) Ud) 3 ml INH RQ6 [facility] Last Admin: 01/24/17 19:52 Dose: Not Given Clopidogrel Bisulfate (Plavix) 75 mg PO DAILY [facility] Last Admin: 01/24/17 10:03 Dose: 75 mg Famotidine (Pepcid) 20 mg PO DAILY [facility] Ferrous Sulfate (Feosol) 325 mg PO BID [facility] Last Admin: 01/24/17 18:21 Dose: 325 mg Guaifenesin (Robitussin) 200 mg PO Q4H PRN PRN Reason: Cough and congestion Vancomycin/Sodium Chloride (Vancomycin 1 Gm/Ns 200 Ml) 1 gm in 200 mls @ 133 mls/hr IVPB DAILY [facility] Stop: 01/27/17 10:01 Last Admin: 01/24/17 10:03 Dose: 133 mls/hr Dextrose/Sodium Chloride (Dextrose 5%/0.45% Ns 1000 Ml) 1,000 mls @ 80 mls/hr IV .[id number] [facility] Last Admin: 01/24/17 21:54 Dose: 80 mls/hr Insulin Aspart (Novolog) 0 unit SC ACHS [facility] PRN Reason: Protocol Last Admin: 01/24/17 21:43 Dose: Not Given Megestrol Acetate (Megace) 400 mg PO DAILY [facility] Fluticasone/Salmeterol (Advair Diskus 250/50) 1 puff INH RQ12 [facility] Last Admin: 01/24/17 19:52 Dose: Not Given - Labs Labs: 01/23/17 11:28 01/23/17 11:28 PT 16.8 SECONDS (9.7-12.2) H 01/22/17 06:32 INR 1.5 01/22/17 06:32 APTT 34 SECONDS (21-34) 01/22/17 06:32 Assessment and Plan (1) Pneumonia Status: Acute (2) Acute renal failure Status: Acute (3) Dizziness Status: Acute (4) HTN (hypertension) Status: Acute (5) UTI (urinary tract infection) Status: Acute (6) Weakness generalized Status: Acute
[2017-01-25] MEDS: Albuterol-Ipratrop 3 mg / 0.5 (3 ml) UD INH SCH ×4 (01:00→19:20)
--- NOTE | 2017-01-25 03:43 | CON ---
UROLOGY CONSULTATION REPORT UROLOGY CONSULTATION REQUESTED BY: Jaxon Rollins MD UROLOGY CONSULTATION FILLED BY: Erendira Glez MD REASON FOR CONSULTATION: Urinary retention. Urinary tract infection. HISTORY OF PRESENT ILLNESS: The patient is an 81-year-old male with urinary retention. The patient has an indwelling Cummings catheter at least since last month. The patient [facility]. The patient was admitted with abdominal pain. He reports no recent fever or rigors. The patient was admitted for urinary tract infection. There has been no hematuria. The patient has Cummings catheter inserted in [facility] approximately 1 month ago for urinary retention following trial of voiding. Mr. Walker has history of hypertension as well. No flank pain. No abdominal pain. No gross hematuria. The patient reports no history of urolithiasis. The patient has had [id number] appetite. He is uncertain regarding recent weight loss. Of significant note, the patient has history of prostate carcinoma. Prostate carcinoma was diagnosed earlier this year. 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 The patient reports no back pain. He has had weight loss, although he is not sure to the extent of this. The patient has always been thin. PHYSICAL EXAMINATION: GENERAL: The patient is a well-developed, well-nourished elderly male. The patient is awake and alert. ABDOMEN: Soft, nontender, nondistended. No mass or organomegaly. Urine is lori via the Cummings catheter. GENITALIA: Without inflammation. LABORATORY DATA: Reviewed. Anemia is noted as well. IMPRESSION: An 81-year-old male with urinary retention. History of prostate carcinoma, currently untreated. The patient has had previous Oncology consultation as well. PLAN/RECOMMENDATIONS: Cummings catheter in place. Urine culture. Serum PSA. Review old chart. Probable hormonal therapy, namely androgen deprivation therapy with leuprolide and possibly bicalutamide. Possible trial of voiding to follow. Possible TURP to relieve bladder outlet obstruction. Further therapy to follow according to the patient's clinical course as well as results of above. Thank you for recommending the patient for Urology consultation. Erendira Glez MD cc: MD Erendira Bee MD
[2017-01-25] MEDS: Fluticasone-Salmeterol 250-50mcg Diskus INH SCH ×2 (07:17→19:20)
[2017-01-25] MEDS: (Novolog) Insulin Aspart, Recombinant 100 u/ml 10 ml vial SC SCH ×3 (08:00→17:35)
--- NOTE | 2017-01-25 08:17 | PCM.URO ---
Urology Progress Note - General General: Tolerating Diet - Subjective Abdominal Pain: No Flank Pain: No Nausea: No Voiding Well: No (catheter in place) Hematuria: No Dsypnea: No Chest Pain: No Fever & Chills: No - Objective Lab Studies: Reviewed (PSA=9.6 T=40.7) Lab Results Last 24 Hours: Laboratory Results - last 24 hr 01/24/17 01/24/17 01/24/17 11:17 11:21 12:39 POC Glucose (mg/dL) 53 L 134 H Vancomycin Peak Vancomycin Trough 11.5 H 01/24/17 01/24/17 01/24/17 16:30 17:45 21:12 POC Glucose (mg/dL) 82 70 Vancomycin Peak 16.2 L Vancomycin Trough 01/25/17 01/25/17 01/25/17 02:22 06:54 07:43 POC Glucose (mg/dL) 84 67 76 Vancomycin Peak Vancomycin Trough Intake & Output: Intake & Output 01/24/17 01/25/17 01/25/17 18:59 06:59 18:59 Intake Total 1638 Output Total 1100 Balance 538 Intake: IV 1200 Oral 438 Output: Urine 1100 Urethral (Cummings) 1100 Emesis 0 Other: # Bowel Movements 0 Vital Signs: Vital Signs - 24 hr 01/24/17 01/24/17 01/24/17 15:15 16:00 23:20 Temperature 98.6 F 97.7 F Pulse Rate 53 L 89 89 Respiratory 20 20 Rate Blood Pressure 121/63 95/60 L O2 Sat by Pulse 97 100 Oximetry 01/25/17 00:00 Temperature Pulse Rate 92 H Respiratory Rate Blood Pressure O2 Sat by Pulse Oximetry - Physical Exam Abdominal Exam: Soft, Non-Tender, Non-Distended Back: No CVA Tenderness Genitalia: Without Inflammation Urinary Catheter Draining Well: Yes Urine Color: Clear, Yellow - Male Phallus: Normal Scrotum: Normal - Plan Catheter Care: Yes Intake & Output: Yes Additional Information: Will discuss re further management for UTI, retention. will discuss re prostate cancer treatment - Date & Time of Note Date: 01/25/17 Time: 08:17
[2017-01-25] MEDS: Megestrol Acetate 40 mg/ml Cup PO SCH (09:33)
[2017-01-25] MEDS: Vancomycin 1 gm/NS 200 ml 1 GM/200 ML BAG IVPB SCH (09:33)
[2017-01-25] MEDS ORDERED: Dextrose 50% SYRINGE Inj (50 ml) ONE (11:57)
[2017-01-25] MEDS: Dextrose 5%/0.45% NS 1,000 ML IV SCH (18:41)
--- NOTE | 2017-01-25 23:14 | CP.PCM.PN ---
Subjective - Date & Time of Evaluation Date of Evaluation: 01/25/17 Time of Evaluation: 09:00 - Subjective Subjective: Pt was seen and evaluated at bedside this morning, id iscussed the case with , urology will get out his sparrow to monitor for obstruction, pt will need TURP eventually Objective - Vital Signs/Intake and Output Vital Signs (last 24 hours): Temp Pulse Resp BP Pulse Ox 98.1 F 90 18 118/55 L 100 01/25/17 17:32 01/25/17 17:32 01/25/17 17:32 01/25/17 17:32 01/25/17 08:35 Intake and Output: 01/25/17 01/26/17 18:59 06:59 Intake Total 800 Output Total 520 Balance 280 - Medications Medications: Current Medications Acetaminophen (Tylenol 325mg Tab) 650 mg PO Q6 PRN PRN Reason: Pain, moderate (4-7) Last Admin: 01/23/17 17:43 Dose: 650 mg Albuterol/Ipratropium (Duoneb 3 Mg/0.5 Mg (3 Ml) Ud) 3 ml INH RQ6 [facility] Last Admin: 01/25/17 19:20 Dose: Not Given Clopidogrel Bisulfate (Plavix) 75 mg PO DAILY [facility] Last Admin: 01/25/17 09:33 Dose: 75 mg Famotidine (Pepcid) 20 mg PO DAILY [facility] Last Admin: 01/25/17 09:33 Dose: 20 mg Ferrous Sulfate (Feosol) 325 mg PO BID [facility] Last Admin: 01/25/17 17:34 Dose: 325 mg Guaifenesin (Robitussin) 200 mg PO Q4H PRN PRN Reason: Cough and congestion Vancomycin/Sodium Chloride (Vancomycin 1 Gm/Ns 200 Ml) 1 gm in 200 mls @ 133 mls/hr IVPB DAILY [facility] Stop: 01/27/17 10:01 Last Admin: 01/25/17 09:33 Dose: 133 mls/hr Dextrose/Sodium Chloride (Dextrose 5%/0.45% Ns 1000 Ml) 1,000 mls @ 80 mls/hr IV .[id number] [facility] Last Admin: 01/25/17 18:41 Dose: 80 mls/hr Insulin Aspart (Novolog) 0 unit SC ACHS [facility] PRN Reason: Protocol Last Admin: 01/25/17 17:35 Dose: Not Given Megestrol Acetate (Megace) 400 mg PO DAILY [facility] Last Admin: 01/25/17 09:33 Dose: 400 mg Fluticasone/Salmeterol (Advair Diskus 250/50) 1 puff INH RQ12 [facility] Last Admin: 01/25/17 19:20 Dose: Not Given - Labs Labs: 01/23/17 11:28 01/23/17 11:28 PT 16.8 SECONDS (9.7-12.2) H 01/22/17 06:32 INR 1.5 01/22/17 06:32 APTT 34 SECONDS (21-34) 01/22/17 06:32 - Constitutional Appears: No Acute Distress - Head Exam Head Exam: ATRAUMATIC, NORMAL INSPECTION, NORMOCEPHALIC - Eye Exam Eye Exam: EOMI, Normal appearance, PERRL Pupil Exam: NORMAL ACCOMODATION, PERRL - Respiratory Exam Respiratory Exam: Clear to Ausculation Bilateral, NORMAL BREATHING PATTERN - Cardiovascular Exam Cardiovascular Exam: REGULAR RHYTHM, +S1, +S2. absent: Murmur - GI/Abdominal Exam GI & Abdominal Exam: Soft, Normal Bowel Sounds. absent: Tenderness Assessment and Plan (1) Pneumonia Status: Acute (2) Acute renal failure Status: Acute (3) Dizziness Status: Acute (4) HTN (hypertension) Status: Acute (5) UTI (urinary tract infection) Status: Acute (6) Weakness generalized Status: Acute
[2017-01-26] MEDS: Albuterol-Ipratrop 3 mg / 0.5 (3 ml) UD INH SCH ×4 (01:26→19:44)
[2017-01-26] MEDS: Fluticasone-Salmeterol 250-50mcg Diskus INH SCH ×2 (07:13→19:44)
[2017-01-26] MEDS: Vancomycin 1 gm/NS 200 ml 1 GM/200 ML BAG IVPB SCH (10:35)
[2017-01-26] MEDS: Dextrose 5%/0.45% NS 1,000 ML IV SCH (10:37)
[2017-01-26] MEDS: Megestrol Acetate 40 mg/ml Cup PO SCH (10:38)
[2017-01-26 12:09] LABS: BASO # 0.1 K/uL (0.0-0.2); EOS # 0.2 K/uL (0.0-0.7); EOS % 4.3 % (0.0-4.0); HEMATOCRIT 26.9 % (35.0-51.0); LYMPH # 1.6 K/uL (1.0-4.3); LYMPH % 27.5 % (20.0-40.0); MEAN CELL VOLUME 81.4 fL (80.0-94.0); MEAN CORPUSCULAR HEMOGLOBIN 26.9 pg (27.0-31.0); MEAN PLATELET VOLUME 7.7 fL (7.2-11.7); MONO # 0.3 K/uL (0.0-0.8); MONO % 5.3 % (0.0-10.0); NRBC % 0.1 % (0.0-2.0); WHITE BLOOD COUNT 5.7 K/uL (4.8-10.8)
[2017-01-26 12:38] LABS: BLOOD UREA NITROGEN 6 mg/dL (9-20); CALCIUM 6.7 mg/dl (8.6-10.4); CARBON DIOXIDE 19 mmol/L (22-30); CHLORIDE 104 mmol/L (98-107); GFR AFRICAN-AMERICAN > 60; GLUCOSE,RANDOM 59 mg/dL (75-110); POTASSIUM 3.3 mmol/L (3.6-5.2); SODIUM 130 mmol/L (132-148)
[2017-01-26] MEDS ORDERED: Potassium Chloride 20 mEq ER Tab PO ONE (13:30)
--- NOTE | 2017-01-26 15:04 | RAD ---
HISTORY: Follow-up. COMPARISON: 01/21/2017. FINDINGS: LUNGS: Stable right lower lobe infiltrate. Finding at the left base apparent previously is not currently identified. PLEURA: No significant pleural effusion identified, no pneumothorax apparent. Calcified pleural plaques consistent with prior asbestos exposure. CARDIOVASCULAR: Normal. OSSEOUS STRUCTURES: No significant abnormalities. VISUALIZED UPPER ABDOMEN: Normal. OTHER FINDINGS: Fibronodular changes of both apices are stable. IMPRESSION: Stable right lower lobe infiltrate.
[2017-01-26] MEDS: Potassium Ch 20mEq in D5-1/2NS 1,000 ML IV SCH (18:59)
--- NOTE | 2017-01-26 23:38 | CP.PCM.PN ---
Subjective - Date & Time of Evaluation Date of Evaluation: 01/26/17 Time of Evaluation: 19:10 - Subjective Subjective: Pt seen and evaluated, pt apetite is poor, looks weak, we removed his sparrow catherre and K has been replaced, will monitor for obstruction Objective - Vital Signs/Intake and Output Vital Signs (last 24 hours): Temp Pulse Resp BP Pulse Ox 97.3 F L 98 H 20 103/59 L 96 01/26/17 16:00 01/26/17 16:00 01/26/17 16:00 01/26/17 16:00 01/26/17 16:00 Intake and Output: 01/26/17 01/27/17 18:59 06:59 Intake Total 640 960 Balance 640 960 - Medications Medications: Current Medications Acetaminophen (Tylenol 325mg Tab) 650 mg PO Q6 PRN PRN Reason: Pain, moderate (4-7) Last Admin: 01/23/17 17:43 Dose: 650 mg Albuterol/Ipratropium (Duoneb 3 Mg/0.5 Mg (3 Ml) Ud) 3 ml INH RQ6 [facility] Last Admin: 01/26/17 19:44 Dose: 3 ml Clopidogrel Bisulfate (Plavix) 75 mg PO DAILY [facility] Last Admin: 01/26/17 10:38 Dose: 75 mg Famotidine (Pepcid) 20 mg PO DAILY [facility] Last Admin: 01/26/17 10:36 Dose: 20 mg Ferrous Sulfate (Feosol) 325 mg PO BID [facility] Last Admin: 01/26/17 17:04 Dose: 325 mg Guaifenesin (Robitussin) 200 mg PO Q4H PRN PRN Reason: Cough and congestion Vancomycin/Sodium Chloride (Vancomycin 1 Gm/Ns 200 Ml) 1 gm in 200 mls @ 133 mls/hr IVPB DAILY [facility] Stop: 01/27/17 10:01 Last Admin: 01/26/17 10:35 Dose: 133 mls/hr Potassium Chloride/Dextrose/Sod Cl (Potassium Chl 20 Meq In D5-1/2ns) 1,000 mls @ 80 mls/hr IV .[id number] [facility] Last Admin: 01/26/17 18:59 Dose: 80 mls/hr Megestrol Acetate (Megace) 400 mg PO DAILY [facility] Last Admin: 01/26/17 10:38 Dose: 400 mg Fluticasone/Salmeterol (Advair Diskus 250/50) 1 puff INH RQ12 [facility] Last Admin: 01/26/17 19:44 Dose: 1 puff - Labs Labs: 01/26/17 11:53 01/26/17 11:53 PT 16.8 SECONDS (9.7-12.2) H 01/22/17 06:32 INR 1.5 01/22/17 06:32 APTT 34 SECONDS (21-34) 01/22/17 06:32 - Constitutional Appears: No Acute Distress - Head Exam Head Exam: ATRAUMATIC, NORMAL INSPECTION, NORMOCEPHALIC - Eye Exam Eye Exam: EOMI, Normal appearance, PERRL Pupil Exam: NORMAL ACCOMODATION, PERRL - ENT Exam ENT Exam: Mucous Membranes Moist, Normal Exam - Neck Exam Neck Exam: Full ROM, Normal Inspection. absent: Lymphadenopathy - Respiratory Exam Respiratory Exam: Clear to Ausculation Bilateral, NORMAL BREATHING PATTERN - Cardiovascular Exam Cardiovascular Exam: REGULAR RHYTHM, +S1, +S2. absent: Murmur Assessment and Plan (1) Pneumonia Status: Acute (2) Acute renal failure Status: Acute (3) Dizziness Status: Acute (4) HTN (hypertension) Status: Acute (5) UTI (urinary tract infection) Status: Acute (6) Weakness generalized Status: Acute
[2017-01-27] MEDS: Albuterol-Ipratrop 3 mg / 0.5 (3 ml) UD INH SCH ×4 (01:04→19:41)
[2017-01-27] MEDS: Potassium Ch 20mEq in D5-1/2NS 1,000 ML IV SCH ×3 (06:11→22:49)
[2017-01-27] MEDS: Fluticasone-Salmeterol 250-50mcg Diskus INH SCH ×2 (08:00→19:41)
[2017-01-27] MEDS: Vancomycin 1 gm/NS 200 ml 1 GM/200 ML BAG IVPB SCH (10:41)
[2017-01-27] MEDS: Megestrol Acetate 40 mg/ml Cup PO SCH (10:45)
[2017-01-27 16:39] VITALS: RESP 20
--- NOTE | 2017-01-27 23:44 | CP.PCM.PN ---
Subjective - Date & Time of Evaluation Date of Evaluation: 01/27/17 Time of Evaluation: 19:00 - Subjective Subjective: Pt seen and examined.foleys was removed and we shall monitor him for obstruction , pt will need TURP eventually, pt apetite is poor, K was replaced Objective - Vital Signs/Intake and Output Vital Signs (last 24 hours): Temp Pulse Resp BP Pulse Ox 98.0 F 98 H 20 104/61 100 01/27/17 16:38 01/27/17 16:38 01/27/17 16:38 01/27/17 16:38 01/27/17 16:38 Intake and Output: 01/27/17 01/28/17 18:59 06:59 Intake Total 760 758 Output Total 675 850 Balance 85 -92 - Medications Medications: Current Medications Acetaminophen (Tylenol 325mg Tab) 650 mg PO Q6 PRN PRN Reason: Pain, moderate (4-7) Last Admin: 01/23/17 17:43 Dose: 650 mg Albuterol/Ipratropium (Duoneb 3 Mg/0.5 Mg (3 Ml) Ud) 3 ml INH RQ6 [facility] Last Admin: 01/27/17 19:41 Dose: 3 ml Clopidogrel Bisulfate (Plavix) 75 mg PO DAILY [facility] Last Admin: 01/27/17 10:45 Dose: 75 mg Famotidine (Pepcid) 20 mg PO DAILY [facility] Last Admin: 01/27/17 10:45 Dose: 20 mg Ferrous Sulfate (Feosol) 325 mg PO BID [facility] Last Admin: 01/27/17 17:34 Dose: 325 mg Guaifenesin (Robitussin) 200 mg PO Q4H PRN PRN Reason: Cough and congestion Potassium Chloride/Dextrose/Sod Cl (Potassium Chl 20 Meq In D5-1/2ns) 1,000 mls @ 80 mls/hr IV .[id number] [facility] Last Admin: 01/27/17 22:49 Dose: Not Given Megestrol Acetate (Megace) 400 mg PO DAILY [facility] Last Admin: 01/27/17 10:45 Dose: 400 mg Fluticasone/Salmeterol (Advair Diskus 250/50) 1 puff INH RQ12 [facility] Last Admin: 01/27/17 19:41 Dose: 1 puff - Labs Labs: 01/26/17 11:53 01/26/17 11:53 PT 16.8 SECONDS (9.7-12.2) H 01/22/17 06:32 INR 1.5 01/22/17 06:32 APTT 34 SECONDS (21-34) 01/22/17 06:32 - Constitutional Appears: Confused, Cachectic - Head Exam Head Exam: ATRAUMATIC, NORMAL INSPECTION, NORMOCEPHALIC - Eye Exam Eye Exam: EOMI, Normal appearance, PERRL Pupil Exam: NORMAL ACCOMODATION, PERRL - Cardiovascular Exam Cardiovascular Exam: REGULAR RHYTHM, +S1, +S2. absent: Murmur - GI/Abdominal Exam GI & Abdominal Exam: Soft, Normal Bowel Sounds. absent: Tenderness Assessment and Plan (1) Acute renal failure Status: Acute (2) Dizziness Status: Acute (3) HTN (hypertension) Status: Acute (4) UTI (urinary tract infection) Status: Acute (5) Weakness generalized Status: Acute (6) Failure to thrive Status: Acute (7) Osteoarthritis Status: Acute
[2017-01-28] MEDS: Potassium Ch 20mEq in D5-1/2NS 1,000 ML IV SCH (00:15)
[2017-01-28 00:42] VITALS: O2SAT 96
[2017-01-28] MEDS: Albuterol-Ipratrop 3 mg / 0.5 (3 ml) UD INH SCH ×3 (01:13→14:20)
[2017-01-28] MEDS ORDERED: Fluconazole IV 200mg/100 ml NS 100 MG in Premixed IV 1 EA IVPB SCH (10:00)
[2017-01-28] MEDS: Megestrol Acetate 40 mg/ml Cup PO SCH (10:22)
[2017-01-28 11:27] LABS: BASO # 0.1 K/uL (0.0-0.2); EOS # 0.2 K/uL (0.0-0.7); LYMPH # 1.1 K/uL (1.0-4.3); MEAN CELL VOLUME 80.1 fL (80.0-94.0); MEAN CORPUSCULAR HEMOGLOBIN 27.1 pg (27.0-31.0); MEAN CORPUSCULAR HGB CONC 33.8 g/dL (33.0-37.0); MEAN PLATELET VOLUME 7.7 fL (7.2-11.7); MONO # 0.4 K/uL (0.0-0.8); MONO % 8.5 % (0.0-10.0); RED CELL DISTRIBUTION WIDTH 20.8 % (11.5-14.5); WHITE BLOOD COUNT 4.8 K/uL (4.8-10.8)
[2017-01-28 12:02] LABS: ALB/GLOB RATIO 0.8 (1.0-2.1); ALKALINE PHOSPHATASE 66 U/L (38-126); ALT/SGPT 25 U/L (21-72); AST/SGOT 20 U/L (17-59); BILIRUBIN,DIRECT 0.5 mg/dL (0.0-0.4); BLOOD UREA NITROGEN 4 mg/dL (9-20); CALCIUM 6.6 mg/dl (8.6-10.4); CARBON DIOXIDE 20 mmol/L (22-30); CHLORIDE 105 mmol/L (98-107); GFR AFRICAN-AMERICAN > 60; GLUCOSE,RANDOM 78 mg/dL (75-110); POTASSIUM 3.5 mmol/L (3.6-5.2); SODIUM 129 mmol/L (132-148); TOTAL PROTEIN 4.2 g/dL (6.3-8.3)
[2017-01-28] MEDS ORDERED: Potassium Chloride 20 mEq ER Tab PO ONE (14:00)
--- NOTE | 2017-01-28 14:05 | CP.PCM.PN ---
Subjective - Date & Time of Evaluation Date of Evaluation: 01/28/17 Time of Evaluation: 10:40 - Subjective Subjective: patient seen today, awake, alert, NAD , cough an d congestion improved, denies any sob, chest pain abdominal pain, p.o intake improved with puree diet afebrile no overnight events reported by RN Objective - Vital Signs/Intake and Output Vital Signs (last 24 hours): Temp Pulse Resp BP Pulse Ox 98.2 F 70 20 130/70 96 01/28/17 07:00 01/28/17 07:00 01/28/17 07:00 01/28/17 07:00 01/28/17 07:00 Intake and Output: 01/28/17 01/28/17 06:59 18:59 Intake Total 1638 Output Total 850 Balance 788 - Medications Medications: Current Medications Acetaminophen (Tylenol 325mg Tab) 650 mg PO Q6 PRN PRN Reason: Pain, moderate (4-7) Last Admin: 01/23/17 17:43 Dose: 650 mg Albuterol/Ipratropium (Duoneb 3 Mg/0.5 Mg (3 Ml) Ud) 3 ml INH RQ6 [facility] Last Admin: 01/28/17 10:02 Dose: Not Given Clopidogrel Bisulfate (Plavix) 75 mg PO DAILY [facility] Last Admin: 01/28/17 10:22 Dose: 75 mg Famotidine (Pepcid) 20 mg PO DAILY [facility] Last Admin: 01/28/17 10:23 Dose: 20 mg Ferrous Sulfate (Feosol) 325 mg PO BID [facility] Last Admin: 01/28/17 10:22 Dose: 325 mg Guaifenesin (Robitussin) 200 mg PO Q4H PRN PRN Reason: Cough and congestion Potassium Chloride/Dextrose/Sod Cl (Potassium Chl 20 Meq In D5-1/2ns) 1,000 mls @ 80 mls/hr IV .[id number] [facility] Last Admin: 01/28/17 00:15 Dose: 80 mls/hr Fluconazole 100 mg/ (Miscellaneous) 50 mls @ 100 mls/hr IVPB DAILY [facility] Last Admin: 01/28/17 10:29 Dose: 100 mls/hr Megestrol Acetate (Megace) 400 mg PO DAILY [facility] Last Admin: 01/28/17 10:22 Dose: 400 mg Fluticasone/Salmeterol (Advair Diskus 250/50) 1 puff INH RQ12 [facility] Last Admin: 01/27/17 19:41 Dose: 1 puff - Labs Labs: 01/28/17 11:14 01/28/17 11:14 PT 16.8 SECONDS (9.7-12.2) H 01/22/17 06:32 INR 1.5 01/22/17 06:32 APTT 34 SECONDS (21-34) 01/22/17 06:32 - Constitutional Appears: Well, No Acute Distress Assessment and Plan - Assessment and Plan (Free Text) Assessment: A/P 81 yr old male admitted with pneumonia an dUTI urine - MRSA and started on antibiotics and pt clinically improved repeat urine culture- negative Blood cultur- negative sputum- yeast - started on diflucan repeat CXR- Stable right lower lobe infiltrate. sparrow cath re inserted for urinary retention Dr. Glez on urology consult - recommends to f/u out pt D/W Dr. rollins, stable for discharge back to [facility] and Dr. Rollins will follow the patient at [facility]
[2017-01-28] MEDS: Fluticasone-Salmeterol 250-50mcg Diskus INH SCH (14:21)
[2017-01-28 16:12] VITALS: BP 113/63; PULSE 103; TEMP 97.3
--- NOTE | 2017-01-28 23:04 | CP.PCM.DIS ---
Provider - Provider Date of Admission: 01/21/17 16:32 Attending physician: Jaxon Rollins MD Time Spent in preparation of Discharge (in minutes): 45 Diagnosis - Discharge Diagnosis (1) Pneumonia Status: Acute (2) Acute renal failure Status: Acute (3) Dizziness Status: Acute (4) HTN (hypertension) Status: Acute (5) UTI (urinary tract infection) Status: Acute (6) Weakness generalized Status: Acute (7) Prostate cancer Status: Acute (8) UTI (urinary tract infection) due to urinary indwelling Vargas catheter Status: Acute (9) Obstructive uropathy Status: Acute Hospital Course - Lab Results Lab Results: Micro Results 01/25/17 15:57 Sputum Gram Stain - Final 01/25/17 15:57 Sputum Sputum Culture - Final Yeast Species 01/26/17 Unknown Urine,Vargas Urine Culture - Final No Growth (<1,000 CFU/ML) 01/21/17 14:20 Blood Blood Culture - Final NO GROWTH AFTER 5 DAYS 01/21/17 14:20 Blood Gram Stain - Final TEST NOT PERFORMED 01/21/17 14:40 Blood Blood Culture - Final NO GROWTH AFTER 5 DAYS 01/21/17 14:40 Blood Gram Stain - Final TEST NOT PERFORMED 01/21/17 16:06 Urine,Catheterized Urine Culture - Final Methicillin Resistant S Aureus Most Recent Lab Values WBC 4.8 K/uL (4.8-10.8) 01/28/17 11:14 RBC 3.00 Mil/uL (4.40-5.90) L 01/28/17 11:14 Hgb 8.1 g/dL (12.0-18.0) L 01/28/17 11:14 Hct 24.0 % (35.0-51.0) L 01/28/17 11:14 MCV 80.1 fL (80.0-94.0) 01/28/17 11:14 MCH 27.1 pg (27.0-31.0) 01/28/17 11:14 MCHC 33.8 g/dL (33.0-37.0) 01/28/17 11:14 RDW 20.8 % (11.5-14.5) H 01/28/17 11:14 Plt Count 352 K/uL (130-400) 01/28/17 11:14 MPV 7.7 fL (7.2-11.7) 01/28/17 11:14 Neut % (Auto) 63.5 % (50.0-75.0) 01/28/17 11:14 Lymph % (Auto) 23.0 % (20.0-40.0) 01/28/17 11:14 [place] % (Auto) 8.5 % (0.0-10.0) 01/28/17 11:14 Eos % (Auto) 4.0 % (0.0-4.0) 01/28/17 11:14 Baso % (Auto) 1.0 % (0.0-2.0) 01/28/17 11:14 Neut # 3.1 K/uL (1.8-7.0) 01/28/17 11:14 Lymph # 1.1 K/uL (1.0-4.3) 01/28/17 11:14 [place] # 0.4 K/uL (0.0-0.8) 01/28/17 11:14 Eos # 0.2 K/uL (0.0-0.7) 01/28/17 11:14 Baso # 0.1 K/uL (0.0-0.2) 01/28/17 11:14 Neutrophils % (Manual) 86 % (50-75) H 01/21/17 14:39 Band Neutrophils % 1 % (0-2) 01/21/17 14:39 Lymphocytes % (Manual) 5 % (20-40) L 01/21/17 14:39 Monocytes % (Manual) 7 % (0-10) 01/21/17 14:39 Eosinophils % (Manual) 1 % (0-4) 01/21/17 14:39 Platelet Estimate Slightly increased (NORMAL) H 01/21/17 14:39 Polychromasia Slight 01/21/17 14:39 Hypochromasia (manual) Slight 01/21/17 14:39 Anisocytosis (manual) Moderate 01/21/17 14:39 Ovalocytes Slight 01/21/17 14:39 PT 16.8 SECONDS (9.7-12.2) H 01/22/17 06:32 INR 1.5 01/22/17 06:32 APTT 34 SECONDS (21-34) 01/22/17 06:32 pO2 66 mm/Hg (30-55) H 01/21/17 20:30 VBG pH 7.38 (7.32-7.43) 01/21/17 20:30 VBG pCO2 30 mmHg (40-60) L 01/21/17 20:30 VBG HCO3 20.0 mmol/L 01/21/17 20:30 VBG Total CO2 18.6 mmol/L (22-28) L 01/21/17 20:30 VBG O2 Sat (Calc) 96.4 % (40-65) H 01/21/17 20:30 VBG Base Excess -6.2 mmol/L (0.0-2.0) L 01/21/17 20:30 VBG Potassium 2.7 mmol/L (3.6-5.2) L 01/21/17 20:30 Sodium 142.0 mmol/l (132-148) 01/21/17 20:30 Chloride 118.0 mmol/L (98-107) H 01/21/17 20:30 Glucose 105 mg/dl (75-110) 01/21/17 20:30 Lactate 0.8 mmol/L (0.7-2.1) 01/21/17 20:30 Crit Value Called To 01/21/17 14:44 Crit Value Called By Trevor vergara,edil 01/21/17 14:44 Crit Value Read Back Y 01/21/17 14:44 Blood Gas Notified Time 1450 01/21/17 14:44 Sodium 129 mmol/L (132-148) L 01/28/17 11:14 Potassium 3.5 mmol/L (3.6-5.2) L 01/28/17 11:14 Chloride 105 mmol/L (98-107) 01/28/17 11:14 Carbon Dioxide 20 mmol/L (22-30) L 01/28/17 11:14 Anion Gap 8 (10-20) L 01/28/17 11:14 BUN 4 mg/dL (9-20) L 01/28/17 11:14 Creatinine 0.3 mg/dL (0.8-1.5) L 01/28/17 11:14 Est GFR ( Amer) > 60 01/28/17 11:14 Est GFR (Non-Af Amer) > 60 01/28/17 11:14 POC Glucose (mg/dL) 86 mg/dL (65-110) 01/28/17 11:43 Random Glucose 78 mg/dL (75-110) 01/28/17 11:14 Lactic Acid 0.7 mmol/L (0.7-2.1) 01/21/17 17:37 Calcium 6.6 mg/dl (8.6-10.4) L 01/28/17 11:14 Magnesium 1.6 mg/dL (1.6-2.3) 01/22/17 06:32 Total Bilirubin 1.0 mg/dL (0.2-1.3) 01/28/17 11:14 Direct Bilirubin 0.5 mg/dL (0.0-0.4) H 01/28/17 11:14 AST 20 U/L (17-59) 01/28/17 11:14 ALT 25 U/L (21-72) 01/28/17 11:14 Alkaline Phosphatase 66 U/L (38-126) 01/28/17 11:14 Troponin I < 0.0120 ng/mL (0.00-0.120) 01/21/17 14:39 NT-Pro-B Natriuret Pep 3870 pg/mL (0-900) H 01/21/17 14:39 Total Protein 4.2 g/dL (6.3-8.3) L 01/28/17 11:14 Albumin 1.8 g/dL (3.5-5.0) L D 01/28/17 11:14 Globulin 2.4 gm/dL (2.2-3.9) 01/28/17 11:14 Albumin/Globulin Ratio 0.8 (1.0-2.1) L 01/28/17 11:14 Prostate Specific Ag 9.66 ng/mL (0.00-4.0) H 01/22/17 16:44 Testosterone Level 40.7 ng/mL 01/22/17 16:44 Venous Blood Potassium 2.7 mmol/L (3.6-5.2) L 01/21/17 20:30 Urine Color Yellow (YELLOW) 01/21/17 15:52 Urine Clarity Hazy (Clear) 01/21/17 15:52 Urine pH 6.0 (5.0-8.0) 01/21/17 15:52 Ur Specific [place] 1.018 (1.003-1.030) 01/21/17 15:52 Urine Protein 2+ mg/dL (NEGATIVE) H 01/21/17 15:52 Urine Glucose (UA) Normal mg/dL (Normal) 01/21/17 15:52 Urine Ketones Negative mg/dL (NEGATIVE) 01/21/17 15:52 Urine Blood 1+ (NEGATIVE) H 01/21/17 15:52 Urine Nitrate Positive (NEGATIVE) H 01/21/17 15:52 Urine Bilirubin Negative (NEGATIVE) 01/21/17 15:52 Urine Urobilinogen 2.0 mg/dL (0.2-1.0) 01/21/17 15:52 Ur Leukocyte Esterase 2+ [place]/uL (Negative) H 01/21/17 15:52 Urine WBC (Auto) 671 /hpf (0-5) H 01/21/17 15:52 Urine RBC (Auto) 49 /hpf (0-3) H 01/21/17 15:52 Urine Bacteria Rare (<OCC) 01/21/17 15:52 Vancomycin Peak 16.2 ug/mL (30.0-40.0) L 01/24/17 17:45 Vancomycin Trough 11.5 ug/mL (5.0-10.0) H 01/24/17 11:17 Influenza Typ A,B (EIA) Negative for flu a/b (NEGATIVE) 01/21/17 Unknown - Hospital Course Hospital Course: A/P 81 yr old male admitted with pneumonia an UTI urine - MRSA and started on antibiotics and pt clinically improved repeat urine culture- negative Blood cultur- negative sputum- yeast - started on diflucan repeat CXR- Stable right lower lobe infiltrate. vargas cath re inserted for urinary retention Dr. Glez on urology consult - recommends to f/u out pt , I discussed the case with him , pt is having obstructive uropathy due to prostrate cancer , pt needs TURP procedure stable for discharge back to [facility] and I will follow the patient at [facility] Discharge Exam - Head Exam Head Exam: ATRAUMATIC, NORMAL INSPECTION, NORMOCEPHALIC - Eye Exam Eye Exam: EOMI, Normal appearance, PERRL Pupil Exam: NORMAL ACCOMODATION, PERRL - ENT Exam ENT Exam: Mucous Membranes Moist - Respiratory Exam Respiratory Exam: Clear to PA & Lateral, NORMAL BREATHING PATTERN - Cardiovascular Exam Cardiovascular Exam: REGULAR RHYTHM, +S1, +S2 - GI/Abdominal Exam GI & Abdominal Exam: Normal Bowel Sounds - Neurological Exam Neurological exam: Alert, Oriented x3 Discharge Plan - Discharge Medications Prescriptions: Fluconazole [Diflucan] 100 mg PO HS 4 Days tab Potassium Chloride 20 meq PO DAILY #3 tab.er.prt - Follow Up Plan Condition: SERIOUS Disposition: REHAB FACILITY/REHAB UNIT Instructions: Sepsis (DC), Sepsis (GEN), Pneumonia (DC) Additional Instructions: PLEASE CALL DR. ROLLINS UPON PATIENT ARRIVAL TO THE FACILITY PLEASE KEEP VARGAS CATH . IN UNTIL SEEN BY DR. GLEZ PLEASE CALL DR. GLEZ OFFICE AND MAKE APPOINTMENT ( MAY NEED CYSTO- URINARY RETENTION ) CONTINUE ALL MEDICATION PER MED. REC. PLEASE REPEAT CBC, BMP , TUESDAY PUREE REGULAR DIET ASSIST WITH FEEDING
== END 2017-01-28 18:40 | DRG 698 ==
LOC: C.ER 14:13 → C.9E 16:32 → C.6T 20:09
PROVIDERS: ADMIT Internal Medicine; ATTEND Internal Medicine
DX: T83.511A Infection and inflammatory reaction due to indwelling urethral catheter, initial encounter (principal); J18.9 Pneumonia, unspecified organism; N17.9 Acute kidney failure, unspecified; J44.0 Chronic obstructive pulmonary disease with (acute) lower respiratory infection; C61 Malignant neoplasm of prostate; I10 Essential (primary) hypertension; B95.62 Methicillin resistant Staphylococcus aureus infection as the cause of diseases classified elsewhere; N39.0 Urinary tract infection, site not specified; I65.29 Occlusion and stenosis of unspecified carotid artery; B37.9 Candidiasis, unspecified; N13.9 Obstructive and reflux uropathy, unspecified; Y73.1 Therapeutic (nonsurgical) and rehabilitative gastroenterology and urology devices associated with adverse incidents; Y84.6 Urinary catheterization as the cause of abnormal reaction of the patient, or of later complication, without mention of misadventure at the time of the procedure; E78.5 Hyperlipidemia, unspecified; M19.90 Unspecified osteoarthritis, unspecified site; F17.210 Nicotine dependence, cigarettes, uncomplicated; R63.0 Anorexia; R62.7 Adult failure to thrive; Z86.73 Personal history of transient ischemic attack (TIA), and cerebral infarction without residual deficits; Z79.02 Long term (current) use of antithrombotics/antiplatelets

== ENCOUNTER 2017-03-02 19:35 | Inpatient (IN) | payer MEDICARE ==
--- NOTE | 2017-03-02 20:04 | C.PDOC ---
History Of Present Illness Patient presents to the ER after his friend called 911 when he noticed patient had dark urine in his sparrow bag. Patient was recently discharged home from rehab 2 days ago with an indwelling sparrow catheter and has not changed in the bag in 2 days. Denies fever, chills, nausea, or vomiting. Time Seen by Provider: 03/02/17 20:03 Chief Complaint (Nursing): Medical Clearance History Per: Patient History/Exam Limitations: no limitations Onset/Duration Of Symptoms: Days Current Symptoms Are (Timing): Still Present Severity: None Reports Recently: Seen In ED, Treated By A Physician, Hospitalized Recent travel outside of the [place]: No Additional History Per: Patient Past Medical History Reviewed: Historical Data, Nursing Documentation, Vital Signs Vital Signs: Last Vital Signs Temp 98.4 F 03/02/17 19:48 Pulse 118 H 03/02/17 19:48 Resp 20 03/02/17 19:48 BP 103/61 03/02/17 19:48 Pulse Ox 95 03/02/17 21:45 - Medical History PMH: COPD, Fractures (left femur fracture), HTN - [facility] Procedures CLOSURE SKIN & SUBCUTANEOUS NEC (11/16/12) EXCISION OF PROSTATE, VIA OPENING, DIAGN (08/30/16) FLUOROSCOPY OF LEFT HEART USING LOW OSMOLAR CONTRAST (08/30/16) FLUOROSCOPY OF MULT COR ART USING L OSM CONTRAST (08/30/16) MEASURE OF ARTERIAL PRESSURE, PERIPHERAL, NUTRITION AIDES TEACHER APPROACH (08/30/16) MEASURE OF CARDIAC SAMPL & PRESSURE, L HEART, PERC APPROACH (08/30/16) MEASUREMENT OF CARDIAC RHYTHM, EXTERNAL APPROACH (08/30/16) REPAIR FACE SKIN, EXTERNAL APPROACH (08/30/16) REPOSITION LEFT UPPER FEMUR WITH INTRAMED FIX, PERC APPROACH (11/20/16) TRANSFUSE NONAUT RED BLOOD CELLS IN PERIPH VEIN, PERC (12/07/16) ULTRASONOGRAPHY OF PROSTATE AND SEMINAL VESICLES (08/30/16) Family History: States: No Known Family Hx - Social History Hx Tobacco Use: No Hx Alcohol Use: No Hx Substance Use: No - Immunization History Hx Tetanus Toxoid Vaccination: Yes Hx Influenza Vaccination: Yes Hx Pneumococcal Vaccination: Yes Review Of Systems Constitutional: Negative for: Fever, Chills Eyes: Negative for: Vision Change Cardiovascular: Negative for: Chest Pain Respiratory: Negative for: Shortness of Breath Gastrointestinal: Negative for: Nausea, Vomiting Genitourinary: Positive for: Other (Dark urine in sparrow bag) Musculoskeletal: Negative for: Neck Pain Skin: Negative for: Rash Neurological: Negative for: Weakness Psych: Negative for: Anxiety Physical Exam - Physical Exam Appears: Non-toxic, Other (Awake, Alert) Skin: Warm, Dry Head: Normacephalic Eye(s): bilateral: Normal Inspection Oral Mucosa: Dry Neck: Supple Chest: Symmetrical, No Tenderness Cardiovascular: Rhythm Regular (Tachycardic) Respiratory: No Rales, No Rhonchi, No Wheezing Gastrointestinal/Abdominal: Soft, No Tenderness Back: No CVA Tenderness Male Genital: Other (Indwelling sparrow with dark color urine in bag) Extremity: No Tenderness Extremity: Bilateral: Atraumatic Pulses: Left Dorsalis Pedis: Normal, Right Dorsalis Pedis: Normal Neurological/Psych: Oriented x3, Normal Speech, Normal Cognition Gait: Unable To Assess ED Course And Treatment - Laboratory Results Result Diagrams: 03/02/17 21:00 03/02/17 21:00 ECG: Interpreted By Me, Viewed By Me O2 Sat by Pulse Oximetry: 95 Pulse Ox Interpretation: Normal - Radiology CXR: Interpreted by Me, Viewed By Me CXR Interpretation: Yes: Other (calcific plaques unchanged from 01/26/17). No: Infiltrates, Fracture, Pnemothorax Progress Note: EKG, blood work, CXR, and urinalysis ordered. IV fluids and zosyn administered. Disposition Discussed With : Jaxon Rollins Comment: accepted the pt on his service and took over the care at 10PM Doctor Will See Patient In The: Hospital Counseled Patient/Family Regarding: Studies Performed, Diagnosis - Disposition Disposition: HOME/ ROUTINE Disposition Time: 20:04 Condition: FAIR Forms: [facility] (Droppy) Connect (Khmer) - POA Present On Arrival: Poor Glycemic Control - Clinical Impression Clinical Impression: Sepsis, UTI (urinary tract infection) - Scribe Statement The provider has reviewed the documentation as recorded by the Scribe Rodriguez Alvarado All medical record entries made by the Scribe were at my direction and personally dictated by me. I have reviewed the chart and agree that the record accurately reflects my personal performance of the history, physical exam, medical decision making, and the department course for this patient. I have also personally directed, reviewed, and agree with the discharge instructions and disposition. Decision To Admit - Pt Status Changed To: Hospital Disposition Of: Inpatient - Admit Certification Admit to Inpatient:: After my assessment, the patient will require hospitalization for at least two midnights. This is because of the severity of symptoms shown, intensity of services needed, and/or the medical risk in this patient being treated as an outpatient. - InPatient: Physician Admission Certification: I certify that this patient requires 2 or more midnights of care for the following reason:: After my assessment, the patient will require hospitalization for at least two midnights. This is because of the severity of symptoms shown, intensity of services needed, and/or the medical risk in this patient being treated as an outpatient. - . Bed Request Type: Regular Admitting Physician: Jaxon Rollins Patient Diagnosis: Sepsis, UTI (urinary tract infection)
[2017-03-02] MEDS: Lactated Ringer's 1,000 ML IV SCH (20:30)
[2017-03-02 21:08] LABS: BASO # 0.1 K/uL (0.0-0.2); EOS % 0.4 % (0.0-4.0); HEMOGLOBIN 11.5 g/dL (12.0-18.0); LYMPH # 0.9 K/uL (1.0-4.3); LYMPH % 11.2 % (20.0-40.0); MEAN CELL VOLUME 90.7 fL (80.0-94.0); MEAN CORPUSCULAR HEMOGLOBIN 29.3 pg (27.0-31.0); MEAN CORPUSCULAR HGB CONC 32.3 g/dL (33.0-37.0); MEAN PLATELET VOLUME 7.5 fL (7.2-11.7); MONO # 0.4 K/uL (0.0-0.8); MONO % 4.6 % (0.0-10.0); NEUT # 6.5 K/uL (1.8-7.0); NEUT % 82.8 % (50.0-75.0); NRBC % 0.1 % (0.0-2.0); RBC 3.94 Mil/uL (4.40-5.90); RED CELL DISTRIBUTION WIDTH 17.4 % (11.5-14.5); WHITE BLOOD COUNT 7.9 K/uL (4.8-10.8)
[2017-03-02 21:19] LABS: INR 1.3; PROTHROMBIN TIME 14.6 SECONDS (9.7-12.2)
[2017-03-02 21:21] LABS: VENOUS BLOOD GAS BASE EXCESS -6.1 mmol/L (0.0-2.0); VENOUS BLOOD GAS PCO2 42 mmHg (40-60); VENOUS BLOOD GAS PO2 20 mm/Hg (30-55); VENOUS BLOOD PH 7.29 (7.32-7.43)
[2017-03-02 21:21] LABS: ALB/GLOB RATIO 0.9 (1.0-2.1); ALBUMIN 3.4 g/dL (3.5-5.0); ALT/SGPT 13 U/L (21-72); AST/SGOT 31 U/L (17-59); BLOOD UREA NITROGEN 24 mg/dL (9-20); CALCIUM 8.4 mg/dl (8.6-10.4); GFR AFRICAN-AMERICAN > 60; GFR NON-AFRICAN AMERICAN > 60
[2017-03-02 21:31] LABS: URINE BACTERIA MANY (<OCC); URINE BILIRUBIN NEGATIVE (NEGATIVE); URINE BLOOD 3+ (NEGATIVE); URINE CLARITY Hazy (Clear); URINE COLOR Amber (YELLOW); URINE GLUCOSE (UA) NORMAL (Normal); URINE LEUKOCYTE ESTERASE 3+ Leu/uL (Negative); URINE NITRATE POSITIVE (NEGATIVE); URINE PROTEIN 2+ mg/dL (NEGATIVE); URINE UROBILINOGEN NORMAL mg/dL (0.2-1.0); WBC CLUMPS FEW /hpf
[2017-03-02] MEDS ORDERED: Piperacillin/Tazobact 3.375 gm 100 ML IVPB STA (21:34)
--- NOTE | 2017-03-02 23:18 | CP.PCM.HP ---
History of Present Illness - History of Present Illness History of Present Illness: Patient presents to the ER after his friend called 911 when he noticed patient had dark urine in his sparrow bag. Patient was recently discharged home from rehab 2 days ago with an indwelling sparrow catheter and has not changed in the bag in 2 days. Denies fever, chills, nausea, or vomiting. Present on Admission - Present on Admission Any Indicators Present on Admission: Yes Past Patient History - Infectious Disease Hx of Infectious Diseases: None - Past Medical History & Family History Past Medical History?: No - Past Social History Smoking Status: Light Smoker < 10 Cigarettes Daily - CARDIAC Hx Hypertension: Yes - PULMONARY Hx Chronic Obstructive Pulmonary Disease (COPD): Yes - NEUROLOGICAL Hx Neurological Disorder: Yes HX Cerebrovascular Accident: Yes (7 YEARS AGO) - HEENT Hx HEENT Problems: No - RENAL Hx Chronic Kidney Disease: No - ENDOCRINE/METABOLIC Hx Endocrine Disorders: No - HEMATOLOGICAL/ONCOLOGICAL Hx Blood Disorders: No - INTEGUMENTARY Hx Dermatological Problems: No - MUSCULOSKELETAL/RHEUMATOLOGICAL Hx Fractures: Yes (left femur fracture) - GASTROINTESTINAL Hx Gastrointestinal Disorders: No - GENITOURINARY/GYNECOLOGICAL Hx Genitourinary Disorders: Yes Other/Comment: uropathy, UTI - PSYCHIATRIC Hx Substance Use: No - SURGICAL HISTORY Hx Surgeries: No - ANESTHESIA Hx Anesthesia: No Meds Allergies/Adverse Reactions: Allergies Allergy/AdvReac Type Severity Reaction Status Date / Time No Known Allergies Allergy Verified 12/30/16 11:26 Results - Vital Signs Recent Vital Signs: Last Vital Signs Temp 98.4 F 03/02/17 19:48 Pulse 110 H 03/02/17 22:13 Resp 16 03/02/17 22:13 BP 108/71 03/02/17 22:13 Pulse Ox 100 03/02/17 22:13 - Labs Result Diagrams: 03/17/17 19:35 03/16/17 08:26 Labs: Laboratory Results - last 24 hr 03/02/17 03/02/17 03/02/17 21:00 21:00 21:00 WBC 7.9 D RBC 3.94 L Hgb 11.5 L D Hct 35.7 MCV 90.7 D MCH 29.3 MCHC 32.3 L RDW 17.4 H Plt Count 354 MPV 7.5 Neut % (Auto) 82.8 H Lymph % (Auto) 11.2 L [place] % (Auto) 4.6 Eos % (Auto) 0.4 Baso % (Auto) 1.0 Neut # 6.5 Lymph # 0.9 L [place] # 0.4 Eos # 0.0 Baso # 0.1 PT 14.6 H INR 1.3 APTT 33 pO2 VBG pH VBG pCO2 VBG HCO3 VBG Total CO2 VBG O2 Sat (Calc) VBG Base Excess VBG Potassium Glucose Lactate Sodium 136 Potassium 5.3 H Chloride 106 Carbon Dioxide 17 L Anion Gap 17 BUN 24 H Creatinine 0.6 L Est GFR ( Amer) > 60 Est GFR (Non-Af Amer) > 60 Random Glucose 143 H Calcium 8.4 L Total Bilirubin 1.2 AST 31 ALT 13 L D Alkaline Phosphatase 71 Total Protein 7.2 Albumin 3.4 L D Globulin 3.8 Albumin/Globulin Ratio 0.9 L Venous Blood Potassium Urine Color Urine Clarity Urine pH Ur Specific [place] Urine Protein Urine Glucose (UA) Urine Ketones Urine Blood Urine Nitrate Urine Bilirubin Urine Urobilinogen Ur Leukocyte Esterase Urine WBC (Auto) Urine RBC (Auto) Urine WBC Clumps (Auto) Urine Bacteria Hyaline Casts 03/02/17 03/02/17 21:15 21:22 WBC RBC Hgb Hct MCV MCH MCHC RDW Plt Count MPV Neut % (Auto) Lymph % (Auto) [place] % (Auto) Eos % (Auto) Baso % (Auto) Neut # Lymph # [place] # Eos # Baso # PT INR APTT pO2 20 L VBG pH 7.29 L VBG pCO2 42 VBG HCO3 18.2 VBG Total CO2 21.5 L VBG O2 Sat (Calc) 23.7 L VBG Base Excess -6.1 L VBG Potassium 4.6 Glucose 142 H Lactate 4.0 H* Sodium 140.0 Potassium Chloride 111.0 H Carbon Dioxide Anion Gap BUN Creatinine Est GFR ( Amer) Est GFR (Non-Af Amer) Random Glucose Calcium Total Bilirubin AST ALT Alkaline Phosphatase Total Protein Albumin Globulin Albumin/Globulin Ratio Venous Blood Potassium 4.6 Urine Color Monse Urine Clarity Hazy Urine pH 6.0 Ur Specific [place] 1.021 Urine Protein 2+ H Urine Glucose (UA) Normal Urine Ketones 1+ H Urine Blood 3+ H Urine Nitrate Positive H Urine Bilirubin Negative Urine Urobilinogen Normal Ur Leukocyte Esterase 3+ H Urine WBC (Auto) 494 H Urine RBC (Auto) 196 H Urine WBC Clumps (Auto) Few H Urine Bacteria Many H Hyaline Casts 6-10 H
[2017-03-03] MEDS: Albuterol-Ipratrop 3 mg / 0.5 (3 ml) UD INH SCH ×4 (01:45→19:33)
[2017-03-03] MEDS: Lactated Ringer's 1,000 ML IV SCH (06:27)
--- NOTE | 2017-03-03 08:32 | RAD ---
PROCEDURE: CHEST RADIOGRAPH, 1 VIEW HISTORY: SOB COMPARISON: None available. FINDINGS: LUNGS: Calcified pleural plaques consistent with prior asbestos exposure -similar. No interval consolidation PLEURA: No pneumothorax or pleural fluid seen. Biapical pleural thickening. Calcified pleural plaques as above CARDIOVASCULAR: Normal. OSSEOUS STRUCTURES: Osteopenia with old healed deformed rib fractures VISUALIZED UPPER ABDOMEN: Normal. OTHER FINDINGS: None. IMPRESSION: No interval acute cardiopulmonary pathology. Calcified pleural plaques consistent with prior asbestosis exposure. Biapical pleural thickening similar
[2017-03-03] MEDS: Enoxaparin 30 mg Syringe SC SCH (09:29)
--- NOTE | 2017-03-03 14:16 | CP.PCM.CON ---
History of Present Illness - History of Present Illness History of Present Illness: 81 yo male patient with PMHx of HTN, Hyperlipidemia, carotid stenosis, UTI, hyponatremia, etoh abuse and COPD was seen at bedside today after request for podiatry consultation concerning unstageable decubitus ulceration to Left foot. Patient states that he does not recall when the ulceration started, but admits that it had been there for a couple of months. Patient admits to mild pain on palpation to Left heel at the site of ulceration. Patient denies of any trauma to the ulceration area Left foot. Patient denies of any other pedal complains. Patient denies of any N/V/F/C or SOB today Review of Systems - Constitutional Constitutional: As Per HPI Past Patient History - Infectious Disease Hx of Infectious Diseases: None - Past Medical History & Family History Past Medical History?: No - Past Social History Smoking Status: Light Smoker < 10 Cigarettes Daily - CARDIAC Hx Hypertension: Yes - PULMONARY Hx Chronic Obstructive Pulmonary Disease (COPD): Yes - NEUROLOGICAL Hx Neurological Disorder: Yes HX Cerebrovascular Accident: Yes (7 YEARS AGO) - HEENT Hx HEENT Problems: No - RENAL Hx Chronic Kidney Disease: No - ENDOCRINE/METABOLIC Hx Endocrine Disorders: No - HEMATOLOGICAL/ONCOLOGICAL Hx Blood Disorders: No Hx Blood Transfusions: Yes Hx Blood Transfusion Reaction: No - INTEGUMENTARY Hx Dermatological Problems: No - MUSCULOSKELETAL/RHEUMATOLOGICAL Hx Falls: Yes - GASTROINTESTINAL Hx Gastrointestinal Disorders: No - GENITOURINARY/GYNECOLOGICAL Hx Genitourinary Disorders: Yes Hx Prostate Cancer: Yes Other/Comment: uropathy, UTI - PSYCHIATRIC Hx Substance Use: No - SURGICAL HISTORY Hx Surgeries: No Hx Cardiac Catheterization: Yes (x2) Other/Comment: hx of prostate biopsy 11/2016. lt.hip surgery w/pins - ANESTHESIA Hx Anesthesia: Yes Hx Anesthesia Reactions: No Hx Malignant Hyperthermia: No Meds Allergies/Adverse Reactions: Allergies Allergy/AdvReac Type Severity Reaction Status Date / Time No Known Allergies Allergy Verified 12/30/16 11:26 - Medications Medications: Current Medications Acetaminophen (Tylenol 325mg Tab) 650 mg PO Q6H PRN PRN Reason: Pain, moderate (4-7) Last Admin: 03/03/17 09:43 Dose: 650 mg Albuterol/Ipratropium (Duoneb 3 Mg/0.5 Mg (3 Ml) Ud) 3 ml INH RQ6 [facility] Last Admin: 03/03/17 08:26 Dose: 3 ml Enoxaparin Sodium (Lovenox) 30 mg SC DAILY [facility] Last Admin: 03/03/17 09:29 Dose: 30 mg Lactated Ringer's (Lactated Ringer's) 1,000 mls @ 100 mls/hr IV .Q10H [facility] Last Admin: 03/03/17 06:27 Dose: Not Given Ceftriaxone Sodium 1 gm/ (Sodium Chloride) 100 mls @ 100 mls/hr IVPB DAILY [facility] Last Admin: 03/03/17 09:29 Dose: 100 mls/hr Rosuvastatin Calcium (Crestor) 10 mg PO HS [facility] Last Admin: 03/02/17 22:31 Dose: 10 mg Tamsulosin HCl (Flomax) 0.4 mg PO DAILY [facility] Last Admin: 03/03/17 09:28 Dose: 0.4 mg Physical Exam - Constitutional Appears: Well, Non-toxic, No Acute Distress - Head Exam Head Exam: ATRAUMATIC - Extremities Exam Additional comments: Bilateral lower extremity exam DERM: Mycotic toenails noted x10 bilaterally. LEFT: Unstageable dicubitus ulceration to Left heel measuring 5cm x 4cm with no drainage. No PTB. No mal-odor noted. No sign of acute infection is noted. No interdigital maceration noted. Another unstabeagle ulceration noted to lateral aspect of LEFT 5th metatarsal head measuring 1.5cmx 1.5cm with dried scab over. No PTB, no drainage, no mal- odor noted. RIGHT: No open wound noted. No PTB. No mal-odor noted. No sign of acute infection is noted. No interdigital maceration noted. VASC: Non-palpable DP and PT noted bilaterally. 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 ORTHO: Pain on palpation to left heel at the site of ulceration. No pain induced on palpation to left foot 5th metatarsal head NEURO: Gross sensation intact. Tested wiht [place] Monofilament to plantar feet multiples points. - Neurological Exam Neurological exam: Alert, Oriented x3 - Psychiatric Exam Psychiatric exam: Normal Affect, Normal Mood - Skin Skin Exam: Normal Color, Warm Results - Vital Signs Recent Vital Signs: Last Vital Signs Temp 98.1 F 03/03/17 08:00 Pulse 101 H 03/03/17 08:00 Resp 20 03/03/17 08:00 BP 92/49 L 03/03/17 08:00 Pulse Ox 99 03/03/17 08:00 - Labs Result Diagrams: 03/02/17 21:00 03/02/17 21:00 Labs: Laboratory Results - last 24 hr 03/02/17 03/02/17 03/02/17 21:00 21:00 21:00 WBC 7.9 D RBC 3.94 L Hgb 11.5 L D Hct 35.7 MCV 90.7 D MCH 29.3 MCHC 32.3 L RDW 17.4 H Plt Count 354 MPV 7.5 Neut % (Auto) 82.8 H Lymph % (Auto) 11.2 L [place] % (Auto) 4.6 Eos % (Auto) 0.4 Baso % (Auto) 1.0 Neut # 6.5 Lymph # 0.9 L [place] # 0.4 Eos # 0.0 Baso # 0.1 PT 14.6 H INR 1.3 APTT 33 pO2 VBG pH VBG pCO2 VBG HCO3 VBG Total CO2 VBG O2 Sat (Calc) VBG Base Excess VBG Potassium Glucose Lactate Sodium 136 Potassium 5.3 H Chloride 106 Carbon Dioxide 17 L Anion Gap 17 BUN 24 H Creatinine 0.6 L Est GFR ( Amer) > 60 Est GFR (Non-Af Amer) > 60 Random Glucose 143 H Lactic Acid Calcium 8.4 L Total Bilirubin 1.2 AST 31 ALT 13 L D Alkaline Phosphatase 71 Total Protein 7.2 Albumin 3.4 L D Globulin 3.8 Albumin/Globulin Ratio 0.9 L Venous Blood Potassium Urine Color Urine Clarity Urine pH Ur Specific [place] Urine Protein Urine Glucose (UA) Urine Ketones Urine Blood Urine Nitrate Urine Bilirubin Urine Urobilinogen Ur Leukocyte Esterase Urine WBC (Auto) Urine RBC (Auto) Urine WBC Clumps (Auto) Urine Bacteria Hyaline Casts 03/02/17 03/02/17 03/03/17 21:15 21:22 01:11 WBC RBC Hgb Hct MCV MCH MCHC RDW Plt Count MPV Neut % (Auto) Lymph % (Auto) [place] % (Auto) Eos % (Auto) Baso % (Auto) Neut # Lymph # [place] # Eos # Baso # PT INR APTT pO2 20 L VBG pH 7.29 L VBG pCO2 42 VBG HCO3 18.2 VBG Total CO2 21.5 L VBG O2 Sat (Calc) 23.7 L VBG Base Excess -6.1 L VBG Potassium 4.6 Glucose 142 H Lactate 4.0 H* Sodium 140.0 Potassium Chloride 111.0 H Carbon Dioxide Anion Gap BUN Creatinine Est GFR ( Amer) Est GFR (Non-Af Amer) Random Glucose Lactic Acid 3.7 H Calcium Total Bilirubin AST ALT Alkaline Phosphatase Total Protein Albumin Globulin Albumin/Globulin Ratio Venous Blood Potassium 4.6 Urine Color Monse Urine Clarity Hazy Urine pH 6.0 Ur Specific [place] 1.021 Urine Protein 2+ H Urine Glucose (UA) Normal Urine Ketones 1+ H Urine Blood 3+ H Urine Nitrate Positive H Urine Bilirubin Negative Urine Urobilinogen Normal Ur Leukocyte Esterase 3+ H Urine WBC (Auto) 494 H Urine RBC (Auto) 196 H Urine WBC Clumps (Auto) Few H Urine Bacteria Many H Hyaline Casts 6-10 H Assessment & Plan - Assessment and Plan (Free Text) Assessment: 81 yo male patient presents with unstageable decubitus ulceration to Left foot. Plan: Patient was seen, evaluated and treated at bedside today discussed with attending Dr. Celeste labs and vitals reviewed; afebrile, WBC 7.9 Left foot dressed witn Betadine, DSD Bilateral lower extremity must be elevated when resting. Prevlon boots for bilateral lower extremity ordered Podiatry will continue to follow in-house
[2017-03-03] MEDS ORDERED: Sodium Chloride 0.9% 500 ML IV SCH (17:00)
--- NOTE | 2017-03-03 19:31 | CP.PCM.PN ---
Subjective - Date & Time of Evaluation Date of Evaluation: 03/03/17 Time of Evaluation: 20:00 - Subjective Subjective: Pt seen and evalauted today, Patient admits to mild pain on palpation to Left heel at the site of ulceration. Patient denies of any trauma to the ulceration area Left foot. Patient denies of any other pedal complains. Patient denies of any N/V/F/C or SOB today Objective - Vital Signs/Intake and Output Vital Signs (last 24 hours): Temp Pulse Resp BP Pulse Ox 97.5 F L 101 H 20 93/50 L 99 03/03/17 15:00 03/03/17 18:17 03/03/17 15:00 03/03/17 18:17 03/03/17 15:42 Intake and Output: 03/03/17 03/04/17 18:59 06:59 Intake Total 1580 Output Total 400 Balance 1180 - Medications Medications: Current Medications Acetaminophen (Tylenol 325mg Tab) 650 mg PO Q6H PRN PRN Reason: Pain, moderate (4-7) Last Admin: 03/03/17 09:43 Dose: 650 mg Albuterol/Ipratropium (Duoneb 3 Mg/0.5 Mg (3 Ml) Ud) 3 ml INH RQ6 [facility] Last Admin: 03/03/17 14:13 Dose: 3 ml Enoxaparin Sodium (Lovenox) 30 mg SC DAILY [facility] Last Admin: 03/03/17 09:29 Dose: 30 mg Ceftriaxone Sodium 1 gm/ (Sodium Chloride) 100 mls @ 100 mls/hr IVPB DAILY [facility] Last Admin: 03/03/17 09:29 Dose: 100 mls/hr Sodium Chloride (Sodium Chloride 0.9%) 500 mls @ 200 mls/hr IV .Q2H30M [facility] Last Admin: 03/03/17 17:25 Dose: 200 mls/hr Sodium Chloride (Sodium Chloride 0.9%) 1,000 mls @ 100 mls/hr IV .Q10H [facility] Vancomycin/Sodium Chloride (Vancomycin 1 Gm/Ns 200 Ml) 1 gm in 200 mls @ 133 mls/hr IVPB Q24H [facility] Stop: 03/08/17 18:01 Rosuvastatin Calcium (Crestor) 10 mg PO HS [facility] Last Admin: 03/02/17 22:31 Dose: 10 mg Tamsulosin HCl (Flomax) 0.4 mg PO DAILY [facility] Last Admin: 03/03/17 09:28 Dose: 0.4 mg - Labs Labs: 03/02/17 21:00 03/02/17 21:00 PT 14.6 SECONDS (9.7-12.2) H 03/02/17 21:00 INR 1.3 03/02/17 21:00 APTT 33 SECONDS (21-34) 03/02/17 21:00
[2017-03-03] MEDS: Vancomycin 1 gm/NS 200 ml 1 GM/200 ML BAG IVPB SCH (19:39)
[2017-03-03] MEDS: Sodium Chloride 0.9% 1,000 ML IV SCH (19:43)
--- NOTE | 2017-03-03 22:11 | CP.PCM.CON ---
History of Present Illness - History of Present Illness History of Present Illness: INFECTIOUS DISEASE CONSULT; CONSULTATION DICTATED; DICTATION NUMBER; # [id number]. CASE DISCUSSED WITH THE STAFF. PLAN; fOLLOW-UP CULTURES. CONTINUE iv CEFTRIAXONE 1 G ONCE DAILY. 03/03/17. ADD iv VANCOMYCIN 1 G EVERY 24 HOURLY 03/03/17. fOLLOW-UP vANCO TROUGH LEVEL PRIOR TO THE FOURTH DOSE AND MAINTAINED BETWEEN 10 AND 20. fOLLOW-UP RENAL FUNCTIONS CLOSELY. EVALUATION. A Romero CAN BE REMOVED OR FURTHER RECOMMENDATIONS. PATIENT SEEN BY PODIATRY AND RECOMMENDATIONS NOTED FOR LEFT FOOT UNSTAGEABLE ULCER FIFTH METATARSAL HEAD. WE WILL MAKE ADJUSTMENTS IN ANTIBIOTICS AFTER CULTURES ARE OBTAINED. wILL FOLLOW ALONG WITH YOU. tHANK YOU. Past Patient History - Infectious Disease Hx of Infectious Diseases: None - Past Medical History & Family History Past Medical History?: No - Past Social History Smoking Status: Light Smoker < 10 Cigarettes Daily - CARDIAC Hx Hypertension: Yes - PULMONARY Hx Chronic Obstructive Pulmonary Disease (COPD): Yes - NEUROLOGICAL HX Cerebrovascular Accident: Yes (7 YEARS AGO) - HEENT Hx HEENT Problems: No - RENAL Hx Chronic Kidney Disease: No - ENDOCRINE/METABOLIC Hx Endocrine Disorders: No - HEMATOLOGICAL/ONCOLOGICAL Hx Blood Disorders: No Hx Blood Transfusions: Yes Hx Blood Transfusion Reaction: No - INTEGUMENTARY Hx Dermatological Problems: No - MUSCULOSKELETAL/RHEUMATOLOGICAL Hx Falls: Yes - GASTROINTESTINAL Hx Gastrointestinal Disorders: No - GENITOURINARY/GYNECOLOGICAL Hx Genitourinary Disorders: Yes Hx Prostate Cancer: Yes Other/Comment: uropathy, UTI - PSYCHIATRIC Hx Substance Use: No - SURGICAL HISTORY Hx Surgeries: No Hx Cardiac Catheterization: Yes (x2) Other/Comment: hx of prostate biopsy 11/2016. lt.hip surgery w/pins - ANESTHESIA Hx Anesthesia: Yes Hx Anesthesia Reactions: No Hx Malignant Hyperthermia: No Meds Allergies/Adverse Reactions: Allergies Allergy/AdvReac Type Severity Reaction Status Date / Time No Known Allergies Allergy Verified 12/30/16 11:26 - Medications Medications: Current Medications Acetaminophen (Tylenol 325mg Tab) 650 mg PO Q6H PRN PRN Reason: Pain, moderate (4-7) Last Admin: 03/03/17 09:43 Dose: 650 mg Albuterol/Ipratropium (Duoneb 3 Mg/0.5 Mg (3 Ml) Ud) 3 ml INH RQ6 [facility] Last Admin: 03/03/17 19:33 Dose: 3 ml Enoxaparin Sodium (Lovenox) 30 mg SC DAILY [facility] Last Admin: 03/03/17 09:29 Dose: 30 mg Ceftriaxone Sodium 1 gm/ (Sodium Chloride) 100 mls @ 100 mls/hr IVPB DAILY [facility] Last Admin: 03/03/17 09:29 Dose: 100 mls/hr Sodium Chloride (Sodium Chloride 0.9%) 1,000 mls @ 100 mls/hr IV .Q10H [facility] Last Admin: 03/03/17 19:43 Dose: 100 mls/hr Vancomycin/Sodium Chloride (Vancomycin 1 Gm/Ns 200 Ml) 1 gm in 200 mls @ 133 mls/hr IVPB Q24H [facility] Stop: 03/08/17 18:01 Last Admin: 03/03/17 19:39 Dose: 133 mls/hr Rosuvastatin Calcium (Crestor) 10 mg PO HS [facility] Last Admin: 03/03/17 21:14 Dose: 10 mg Tamsulosin HCl (Flomax) 0.4 mg PO DAILY [facility] Last Admin: 03/03/17 09:28 Dose: 0.4 mg Results - Vital Signs Recent Vital Signs: Last Vital Signs Temp 97.5 F L 03/03/17 15:00 Pulse 101 H 03/03/17 18:17 Resp 20 03/03/17 15:00 BP 93/50 L 03/03/17 18:17 Pulse Ox 99 03/03/17 15:42 - Labs Result Diagrams: 03/02/17 21:00 03/02/17 21:00 Labs: Laboratory Results - last 24 hr 03/03/17 01:11 Lactic Acid 3.7 H
--- NOTE | 2017-03-04 00:35 | CON ---
DATE: INFECTIOUS DISEASE CONSULTATION REQUESTED BY: Jaxon Rollins MD. DICTATION DONE BY: Mello Parkinson MD. REASON FOR CONSULTATION: Sepsis with UTI, tachycardia and renal insufficiency. HISTORY OF PRESENT ILLNESS: The patient is an 81-year-old male with past medical history of hypertension, hyperlipidemia, carotid stenosis, UTI, hyponatremia, ethanol abuse and COPD, was admitted on 03/02/2017 after he was found to have dark-colored urine. History obtained from the patient. The patient was recently hospitalized in [facility] from 01/21/2017 to 01/28/2017. At that time, he presented with urinary retention and was seen by urologist, who catheterized him on 01/24/2017. He was treated for pneumonia and MRSA, urosepsis. PSA at that time was noted to be high 9.6. The patient now returns with tachycardia, hypertension and elevated serum lactate as reported by the staff. The patient was started on IV Zosyn and then continued on IV ceftriaxone 1 g q. 24 hourly. Infectious Disease consultation requested by PMD as urine culture was positive for gram-positive cocci. The patient wants his catheter out as he states he cannot tolerate it as per the patient's mouth. The patient denies any fever or chills at present, but states that he feels warm at times. Also states that he has a left foot ulcer, which was seen by the button maker this a.m. Recalled that his ulceration started about a couple of months ago. The patient complains of mild pain on palpation to the left heel at the site of the ulceration. Denies any trauma to the ulceration area, left foot. The patient also denies any nausea, vomiting, diarrhea, constipation or shortness of breath. PAST MEDICAL HISTORY: As above, hypertension, hyperlipidemia, carotid stenosis, ethanol abuse and history of COPD, history of prostate CA as reported in the previous admission. The patient also has history of left open reduction and internal fixation of medial malleolar fracture in the past. FAMILY HISTORY: Unremarkable. SOCIAL HISTORY: The patient denies smoking, but was an ex-smoker. He states occasionally smoked, life smoker, 10 cigarettes daily. Denies alcohol abuse at present. Lives by himself. ALLERGIES: NO KNOWN ALLERGIES. REVIEW OF SYSTEMS: RESPIRATORY: Denies any cough or shortness of breath. CARDIOVASCULAR: Denies any chest pains or palpitations. ABDOMEN: Denies abdominal pain or diarrhea. GENITOURINARY: Has a Cummings catheter in place. Draining lori-colored urine. Rest of the review of systems is unremarkable. PHYSICAL EXAMINATION: GENERAL: The patient is awake, alert, not in any acute distress. VITAL SIGNS: Afebrile, blood pressure is 92/49, respirations 20, pulse of 101, T-max of 98.1, pulse ox is 99% on room air. HEENT: Pupils equal, reactive to light and accommodation. Extraocular movements full. Fundus negative. Sclerae nonicteric. Conjunctivae normal. JVP not elevated. NECK: Appears to be supple. LUNGS: Diminished breath sounds at the bases. CARDIOVASCULAR SYSTEM: S1, S2. No murmur or gallop. ABDOMEN: Soft, nontender. No masses. Bowel sounds are present. EXTREMITIES: There is a clean dressing, which is intact and dry, recently done by a button maker. As reported, the patient has a left heel ulcer with no drainage at present and also there is a small ulcer on the left fifth digit metatarsal head, which is dry and with a scab. No drainage noted. CENTRAL NERVOUS SYSTEM: Awake and alert. Moves all extremities. LABORATORY DATA: WBCs 7.9, H and H of 11.5 and 35.7, platelets 354. Serum lactate is 4.0 and the repeat was 3.7. Potassium is 5.3, creatinine 0.6, BUN of 24, total bilirubin 1.2, AST 31, ALT 13. Chest x-ray on admission showed calcified pleural plaques with prior asbestos exposure, biapical pleural thickening also noted. Urine culture and sensitivity report reveals gram-positive cocci. Blood cultures x2 sets pending. IMPRESSION: 1. Sepsis, most likely urosepsis; history of methicillin-resistant Staphylococcus aureus urinary tract infection in the most recent admission. 2. Left foot decubitus ulcer, unstable. 3. History of urinary retention, status post Cummings insertion on 01/24/2017. 4. Prostate cancer with elevated prostate-specific antigen. 5. History of hypertension. 6. History of old cerebrovascular accident. PLAN: Suggest pancultures. Continue IV ceftriaxone 1 g q. 24 hourly for now, started on 03/03/2017. We will add IV vancomycin 1 g q. 24 hourly. Stat dose now. Follow up vancomycin trough level prior to the fourth dose and maintain between 10 and 20. Consider evaluation for Cummings removal or cystoscopy. The patient has already seen by Podiatry and recommendations noted. We will follow along with you. Thank you very much for allowing me to participate in the care of your patient. Mello Parkinson MD
[2017-03-04] MEDS: Albuterol-Ipratrop 3 mg / 0.5 (3 ml) UD INH SCH ×4 (01:44→20:24)
[2017-03-04] MEDS: Sodium Chloride 0.9% 1,000 ML IV SCH ×2 (05:12→15:40)
[2017-03-04 07:36] LABS: EOS # 0.1 K/uL (0.0-0.7); MONO # 0.3 K/uL (0.0-0.8)
[2017-03-04 07:46] LABS: EOS % 2.3 % (0.0-4.0); LYMPH % 22.8 % (20.0-40.0); MEAN CORPUSCULAR HEMOGLOBIN 30.2 pg (27.0-31.0); MEAN CORPUSCULAR HGB CONC 34.2 g/dL (33.0-37.0); MEAN PLATELET VOLUME 7.8 fL (7.2-11.7); MONO % 6.7 % (0.0-10.0); NEUT % 67.2 % (50.0-75.0); NRBC % 0.1 % (0.0-2.0); RBC 2.96 Mil/uL (4.40-5.90); RED CELL DISTRIBUTION WIDTH 16.7 % (11.5-14.5); WHITE BLOOD COUNT 4.5 K/uL (4.8-10.8)
[2017-03-04 07:53] LABS: HEMOGLOBIN 8.9 g/dL (12.0-18.0); MEAN CELL VOLUME 88.2 fL (80.0-94.0)
[2017-03-04 07:58] LABS: BLOOD UREA NITROGEN 13 mg/dL (9-20); CALCIUM 7.3 mg/dl (8.6-10.4); GFR AFRICAN-AMERICAN > 60; GFR NON-AFRICAN AMERICAN > 60
[2017-03-04] MEDS: Enoxaparin 30 mg Syringe SC SCH (09:21)
--- NOTE | 2017-03-04 09:30 | PCM.URO ---
Urology Progress Note - Objective Lab Studies: Reviewed (cap and retention and sepsis with mrsa antibiotic / trial of void/ flomax/ may need orchiectomy and turp) Lab Results Last 24 Hours: Laboratory Results - last 24 hr 03/04/17 03/04/17 07:14 07:14 WBC 4.5 L RBC 2.96 L Hgb 8.9 L D Hct 26.1 L MCV 88.2 D MCH 30.2 MCHC 34.2 RDW 16.7 H Plt Count 279 MPV 7.8 Neut % (Auto) 67.2 Lymph % (Auto) 22.8 Stearns % (Auto) 6.7 Eos % (Auto) 2.3 Baso % (Auto) 1.0 Neut # 3.0 Lymph # 1.0 Stearns # 0.3 Eos # 0.1 Baso # 0.0 Sodium 132 Potassium 3.7 Chloride 105 Carbon Dioxide 22 Anion Gap 8 L BUN 13 Creatinine 0.5 L Est GFR ( Amer) > 60 Est GFR (Non-Af Amer) > 60 Random Glucose 86 Calcium 7.3 L Intake & Output: Intake & Output 03/03/17 03/04/17 03/04/17 18:59 06:59 18:59 Intake Total 1580 2320 Output Total 400 450 Balance 1180 1870 Intake: Intake, IV Amount 900 1900 Right Hand 900 1900 Oral 680 420 Output: Urine 400 450 Urethral (Cummings) 400 450 Other: # Bowel Movements 0 1 Vital Signs: Vital Signs - 24 hr 03/03/17 03/03/17 03/03/17 15:00 15:42 18:17 Temperature 97.5 F L Pulse Rate 106 H 98 H 101 H Respiratory 20 Rate Blood Pressure 93/45 L 93/50 L O2 Sat by Pulse 100 99 Oximetry 03/03/17 03/04/17 23:21 08:46 Temperature 98.1 F 97.7 F Pulse Rate 103 H 95 H Respiratory 20 20 Rate Blood Pressure 102/60 141/90 O2 Sat by Pulse 99 95 Oximetry
--- NOTE | 2017-03-04 12:00 | CP.PCM.PN ---
Subjective - Date & Time of Evaluation Date of Evaluation: 03/04/17 Time of Evaluation: 12:00 Objective - Vital Signs/Intake and Output Vital Signs (last 24 hours): Temp Pulse Resp BP Pulse Ox 97.7 F 95 H 20 141/90 95 03/04/17 08:46 03/04/17 08:46 03/04/17 08:46 03/04/17 08:46 03/04/17 08:46 Intake and Output: 03/04/17 03/04/17 06:59 18:59 Intake Total 2320 Output Total 450 Balance 1870 - Medications Medications: Current Medications Acetaminophen (Tylenol 325mg Tab) 650 mg PO Q6H PRN PRN Reason: Pain, moderate (4-7) Last Admin: 03/03/17 09:43 Dose: 650 mg Albuterol/Ipratropium (Duoneb 3 Mg/0.5 Mg (3 Ml) Ud) 3 ml INH RQ6 [facility] Last Admin: 03/04/17 07:47 Dose: 3 ml Enoxaparin Sodium (Lovenox) 30 mg SC DAILY [facility] Last Admin: 03/04/17 09:21 Dose: 30 mg Ceftriaxone Sodium 1 gm/ (Sodium Chloride) 100 mls @ 100 mls/hr IVPB DAILY [facility] Last Admin: 03/04/17 09:21 Dose: 100 mls/hr Sodium Chloride (Sodium Chloride 0.9%) 1,000 mls @ 100 mls/hr IV .Q10H [facility] Last Admin: 03/04/17 05:12 Dose: Not Given Vancomycin/Sodium Chloride (Vancomycin 1 Gm/Ns 200 Ml) 1 gm in 200 mls @ 133 mls/hr IVPB Q24H [facility] Stop: 03/08/17 18:01 Last Admin: 03/03/17 19:39 Dose: 133 mls/hr Rosuvastatin Calcium (Crestor) 10 mg PO HS [facility] Last Admin: 03/03/17 21:14 Dose: 10 mg Tamsulosin HCl (Flomax) 0.4 mg PO DAILY [facility] Last Admin: 03/04/17 09:21 Dose: 0.4 mg - Labs Labs: 03/04/17 07:14 03/04/17 07:14 PT 14.6 SECONDS (9.7-12.2) H 03/02/17 21:00 INR 1.3 03/02/17 21:00 APTT 33 SECONDS (21-34) 03/02/17 21:00
--- NOTE | 2017-03-04 12:19 | CP.PCM.PN ---
Subjective - Date & Time of Evaluation Date of Evaluation: 03/04/17 Time of Evaluation: 12:17 - Subjective Subjective: 81 yo male patient was seen at bedside today concerning unstageable decubitus ulceration to Left foot. Patient was resting comfortably in bed wtih no acute distress. AAO x3, NAD. Dressing to left foot appear clean dry and intact. Multipodus boots applied to bilateral feet. Patient was advised to keep them at all times when in bed. Patient admits to mild pain on palpation to Left heel at the site of ulceration. Patient denies of any other pedal complains. Patient denies of any N/V/F/C or SOB today Objective - Vital Signs/Intake and Output Vital Signs (last 24 hours): Temp Pulse Resp BP Pulse Ox 97.7 F 95 H 20 141/90 95 03/04/17 08:46 03/04/17 08:46 03/04/17 08:46 03/04/17 08:46 03/04/17 08:46 Intake and Output: 03/04/17 03/04/17 06:59 18:59 Intake Total 2320 Output Total 450 Balance 1870 - Medications Medications: Current Medications Acetaminophen (Tylenol 325mg Tab) 650 mg PO Q6H PRN PRN Reason: Pain, moderate (4-7) Last Admin: 03/03/17 09:43 Dose: 650 mg Albuterol/Ipratropium (Duoneb 3 Mg/0.5 Mg (3 Ml) Ud) 3 ml INH RQ6 [facility] Last Admin: 03/04/17 07:47 Dose: 3 ml Enoxaparin Sodium (Lovenox) 30 mg SC DAILY [facility] Last Admin: 03/04/17 09:21 Dose: 30 mg Ceftriaxone Sodium 1 gm/ (Sodium Chloride) 100 mls @ 100 mls/hr IVPB DAILY [facility] Last Admin: 03/04/17 09:21 Dose: 100 mls/hr Sodium Chloride (Sodium Chloride 0.9%) 1,000 mls @ 100 mls/hr IV .Q10H [facility] Last Admin: 03/04/17 05:12 Dose: Not Given Vancomycin/Sodium Chloride (Vancomycin 1 Gm/Ns 200 Ml) 1 gm in 200 mls @ 133 mls/hr IVPB Q24H [facility] Stop: 03/08/17 18:01 Last Admin: 03/03/17 19:39 Dose: 133 mls/hr Rosuvastatin Calcium (Crestor) 10 mg PO HS [facility] Last Admin: 03/03/17 21:14 Dose: 10 mg Tamsulosin HCl (Flomax) 0.4 mg PO DAILY [facility] Last Admin: 03/04/17 09:21 Dose: 0.4 mg - Labs Labs: 03/04/17 07:14 03/04/17 07:14 PT 14.6 SECONDS (9.7-12.2) H 03/02/17 21:00 INR 1.3 03/02/17 21:00 APTT 33 SECONDS (21-34) 03/02/17 21:00 - Constitutional Appears: Well, Non-toxic, No Acute Distress - Head Exam Head Exam: ATRAUMATIC - Extremities Exam Additional comments: Bilateral lower extremity exam DERM: Mycotic toenails noted x10 bilaterally. LEFT: Unstageable dicubitus ulceration to Left heel measuring 5cm x 4cm with no drainage. No PTB. No mal-odor noted. No sign of acute infection is noted. No interdigital maceration noted. Another unstabeagle ulceration noted to lateral aspect of LEFT 5th metatarsal head measuring 1.5cmx 1.5cm with dried scab over. No PTB, no drainage, no mal- odor noted. RIGHT: No open wound noted. No PTB. No mal-odor noted. No sign of acute infection is noted. No interdigital maceration noted. VASC: Non-palpable DP and PT noted bilaterally. [employer]ELOP[employer] CONSULTANT <3 sec to all digits bilaterally. ORTHO: Pain on palpation to left heel at the site of ulceration. No pain induced on palpation to left foot 5th metatarsal head NEURO: Gross sensation intact. Tested wiht Pemberton Mckenzie Monofilament to plantar feet multiples points. - Neurological Exam Neurological Exam: Alert, Awake, Oriented x3 - Psychiatric Exam Psychiatric exam: Normal Affect, Normal Mood - Skin Skin Exam: Normal Color, Warm Assessment and Plan - Assessment and Plan (Free Text) Assessment: 81 yo male patient presents with unstageable decubitus ulceration to Left foot. Plan: Patient was seen, evaluated and treated at bedside today discussed with attending Dr. Celeste labs and vitals reviewed; afebrile, WBC 4.5 Xray of left foot ordered Left foot dressed with Betadine, DSD Bilateral lower extremity must be elevated when resting. Prevlon boots for bilateral lower extremity applied Podiatry will continue to follow in-house
--- NOTE | 2017-03-04 13:39 | RAD ---
PROCEDURE: Left Foot Radiographs. HISTORY: r/o left foot osteomyelitis COMPARISON: None. FINDINGS: BONES: No osseous fracture. No osseous erosion or periosteal reaction appreciated. There is a compression screw through the medial malleolus, presumably status post prior ORIF. JOINTS: Hammertoe deformity of 2nd through 5th digits. SOFT TISSUES: Normal. OTHER FINDINGS: None. IMPRESSION: No radiographic evidence of acute osteomyelitis.
--- NOTE | 2017-03-04 17:04 | US ---
Indication: Retention Comparison: None available Findings: The urinary bladder wall appears thickened and irregular with evidence of increased vascularity. The prevoid urinary bladder measures approximately 6.3 x 6.1 x 7.0 cm, calculated bladder volume 190.9 mL. Patient was unable to void. Bilateral ureteral jets were identified. Prostate gland measures approximately 4.0 x 4.2 x 4.1 cm, calculated volume 35.9 mL. Prostate calcification measuring approximately 1.6 x 0.9 x 1.0 cm. Impression: Irregular thick-walled urinary bladder demonstrates evidence of increased vascularity. Correlate with urinalysis. Enlarged prostate gland. Coarse 1.6 cm prostate calcification. Recommend correlation with PSA. Prevoid urinary bladder volume 190.9 mL. Patient was unable to void.
[2017-03-04] MEDS: Vancomycin 1 gm/NS 200 ml 1 GM/200 ML BAG IVPB SCH (17:24)
--- NOTE | 2017-03-04 20:19 | CP.PCM.PN ---
Subjective - Date & Time of Evaluation Date of Evaluation: 03/04/17 Time of Evaluation: 20:19 - Subjective Subjective: CHIEF COMPLAINTS TODAY : afebrile, s/p Romero removal by . Patient drinking water For voiding trial as per . ROS. HEENT : N. Resp : No cough, wheezing ,pleuritic CP ,or hemoptysis Cardio : No anginal CP, PND, orthopnea, palpitation GI : No abd.pain, n/v ,diarrhea or GI bleeding . 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 Musculoskel : No joint swelling , Derm : No rash Psych : Normal affect. Ext : No swelling ,calf pain PE. Pt. is alert awake in no distress. V.S As noted in the chart Head ,ear nose,throat and eyes : Normal. Neck : Supple with normal carotids. Lungs: Clear air entry. Heart : S1 & S2 normal with S4. No murmur. Abd : Soft non tender with normal bowel sounds. Neuro : Moves all ext. with no localized deficit. Ext : No edema with intact pulses.Non tender calves Derm : No rashes or decubitus ulcer. LABS/RADIOLOGY: reviewed. urine culture +ve MRSA RENAL FUNCTION STABLE. ASSESSMENT SEPSIS SEC. 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 URINARY RETENTION. CA OF PROSTATE. HTN. lEFT FOOT DECUBITUS ULCER-UNSTAGEABLE. /PLAN : CONTINUE iv CEFTRIAXONE 1 G ONCE A DAY DAILY.03/03/17 cONTINUE iv VANCOMYCIN 1 G ONCE A DAY DAILY.03/03/17 fOLLOW-UP vANCO TROUGH LEVEL PRIOR TO THE FOURTH DOSE AND KEEP BETWEEN 10 AND 20 ROMERO HAS BEEN REMOVED BY TRIAL OF VOIDING IN PROGRESS. CONTACT PRECAUTIONS. Objective - Vital Signs/Intake and Output Vital Signs (last 24 hours): Temp Pulse Resp BP Pulse Ox 97.8 F 109 H 20 109/54 L 100 03/04/17 17:35 03/04/17 16:00 03/04/17 16:00 03/04/17 16:00 03/04/17 16:00 Intake and Output: 03/04/17 03/05/17 18:59 06:59 Intake Total 1050 Output Total 30 Balance 1020 - Medications Medications: Current Medications Acetaminophen (Tylenol 325mg Tab) 650 mg PO Q6H PRN PRN Reason: Pain, moderate (4-7) Last Admin: 03/04/17 17:35 Dose: 650 mg Albuterol/Ipratropium (Duoneb 3 Mg/0.5 Mg (3 Ml) Ud) 3 ml INH RQ6 [facility] Last Admin: 03/04/17 13:17 Dose: 3 ml Enoxaparin Sodium (Lovenox) 30 mg SC DAILY [facility] Last Admin: 03/04/17 09:21 Dose: 30 mg Famotidine (Pepcid) 20 mg IVP DAILY [facility] Last Admin: 03/04/17 16:40 Dose: 20 mg Ceftriaxone Sodium 1 gm/ (Sodium Chloride) 100 mls @ 100 mls/hr IVPB DAILY [facility] Last Admin: 03/04/17 09:21 Dose: 100 mls/hr Sodium Chloride (Sodium Chloride 0.9%) 1,000 mls @ 100 mls/hr IV .Q10H [facility] Last Admin: 03/04/17 15:40 Dose: Not Given Vancomycin/Sodium Chloride (Vancomycin 1 Gm/Ns 200 Ml) 1 gm in 200 mls @ 133 mls/hr IVPB Q24H [facility] Stop: 03/08/17 18:01 Last Admin: 03/04/17 17:24 Dose: 133 mls/hr Rosuvastatin Calcium (Crestor) 10 mg PO HS [facility] Last Admin: 03/03/17 21:14 Dose: 10 mg Tamsulosin HCl (Flomax) 0.4 mg PO DAILY [facility] Last Admin: 03/04/17 09:21 Dose: 0.4 mg - Labs Labs: 03/04/17 07:14 03/04/17 07:14 PT 14.6 SECONDS (9.7-12.2) H 03/02/17 21:00 INR 1.3 03/02/17 21:00 APTT 33 SECONDS (21-34) 03/02/17 21:00
--- NOTE | 2017-03-04 23:02 | CP.PCM.PN ---
<Mello Parkinson - Last Filed: 03/05/17 02:01> Objective - Vital Signs/Intake and Output Vital Signs (last 24 hours): Temp Pulse Resp BP Pulse Ox 97.9 F 95 H 20 129/74 99 03/05/17 00:00 03/05/17 00:00 03/05/17 00:00 03/05/17 00:00 03/05/17 00:00 Intake and Output: 03/04/17 03/05/17 18:59 06:59 Intake Total 1050 950 Output Total 30 150 Balance 1020 800 - Medications Medications: Current Medications Acetaminophen (Tylenol 325mg Tab) 650 mg PO Q6H PRN PRN Reason: Pain, moderate (4-7) Last Admin: 03/04/17 17:35 Dose: 650 mg Albuterol/Ipratropium (Duoneb 3 Mg/0.5 Mg (3 Ml) Ud) 3 ml INH RQ6 [facility] Last Admin: 03/05/17 01:30 Dose: 3 ml Enoxaparin Sodium (Lovenox) 30 mg SC DAILY [facility] Last Admin: 03/04/17 09:21 Dose: 30 mg Famotidine (Pepcid) 20 mg IVP DAILY [facility] Last Admin: 03/04/17 16:40 Dose: 20 mg Ceftriaxone Sodium 1 gm/ (Sodium Chloride) 100 mls @ 100 mls/hr IVPB DAILY [facility] Last Admin: 03/04/17 09:21 Dose: 100 mls/hr Sodium Chloride (Sodium Chloride 0.9%) 1,000 mls @ 100 mls/hr IV .Q10H [facility] Last Admin: 03/04/17 15:40 Dose: Not Given Vancomycin/Sodium Chloride (Vancomycin 1 Gm/Ns 200 Ml) 1 gm in 200 mls @ 133 mls/hr IVPB Q24H [facility] Stop: 03/08/17 18:01 Last Admin: 03/04/17 17:24 Dose: 133 mls/hr Rosuvastatin Calcium (Crestor) 10 mg PO HS [facility] Last Admin: 03/04/17 22:02 Dose: 10 mg Tamsulosin HCl (Flomax) 0.4 mg PO DAILY [facility] Last Admin: 03/04/17 09:21 Dose: 0.4 mg - Labs Labs: 03/04/17 07:14 03/04/17 07:14 PT 14.6 SECONDS (9.7-12.2) H 03/02/17 21:00 INR 1.3 03/02/17 21:00 APTT 33 SECONDS (21-34) 03/02/17 21:00 <Jaxon Rollins - Last Filed: 03/05/17 13:48> Subjective - Date & Time of Evaluation Date of Evaluation: 03/04/17 Time of Evaluation: 19:15 - Subjective Subjective: Pt seen & evaluated at bedside, pt has MRSA in urine, fleys was taken out by and didnot had pee, he is for bladder U/S afetre that foles will be reinserted Objective - Vital Signs/Intake and Output Vital Signs (last 24 hours): Temp Pulse Resp BP Pulse Ox 98.0 F 109 H 20 109/54 L 100 03/04/17 18:35 03/04/17 16:00 03/04/17 16:00 03/04/17 16:00 03/04/17 16:00 Intake and Output: 03/04/17 03/05/17 18:59 06:59 Intake Total 1050 950 Output Total 30 150 Balance 1020 800 - Medications Medications: Current Medications Acetaminophen (Tylenol 325mg Tab) 650 mg PO Q6H PRN PRN Reason: Pain, moderate (4-7) Last Admin: 03/04/17 17:35 Dose: 650 mg Albuterol/Ipratropium (Duoneb 3 Mg/0.5 Mg (3 Ml) Ud) 3 ml INH RQ6 [facility] Last Admin: 03/04/17 20:24 Dose: Not Given Enoxaparin Sodium (Lovenox) 30 mg SC DAILY [facility] Last Admin: 03/04/17 09:21 Dose: 30 mg Famotidine (Pepcid) 20 mg IVP DAILY [facility] Last Admin: 03/04/17 16:40 Dose: 20 mg Ceftriaxone Sodium 1 gm/ (Sodium Chloride) 100 mls @ 100 mls/hr IVPB DAILY [facility] Last Admin: 03/04/17 09:21 Dose: 100 mls/hr Sodium Chloride (Sodium Chloride 0.9%) 1,000 mls @ 100 mls/hr IV .Q10H [facility] Last Admin: 03/04/17 15:40 Dose: Not Given Vancomycin/Sodium Chloride (Vancomycin 1 Gm/Ns 200 Ml) 1 gm in 200 mls @ 133 mls/hr IVPB Q24H [facility] Stop: 03/08/17 18:01 Last Admin: 03/04/17 17:24 Dose: 133 mls/hr Rosuvastatin Calcium (Crestor) 10 mg PO HS [facility] Last Admin: 03/04/17 22:02 Dose: 10 mg Tamsulosin HCl (Flomax) 0.4 mg PO DAILY [facility] Last Admin: 03/04/17 09:21 Dose: 0.4 mg - Labs Labs: 03/04/17 07:14 03/04/17 07:14 PT 14.6 SECONDS (9.7-12.2) H 03/02/17 21:00 INR 1.3 03/02/17 21:00 APTT 33 SECONDS (21-34) 03/02/17 21:00 - Constitutional Appears: No Acute Distress - Head Exam Head Exam: ATRAUMATIC, NORMAL INSPECTION, NORMOCEPHALIC - Eye Exam Eye Exam: EOMI, Normal appearance, PERRL Pupil Exam: NORMAL ACCOMODATION, PERRL - Respiratory Exam Respiratory Exam: Clear to Ausculation Bilateral, NORMAL BREATHING PATTERN - Cardiovascular Exam Cardiovascular Exam: REGULAR RHYTHM, +S1, +S2. absent: Murmur Assessment and Plan (1) CA prostate, adenoca Status: Acute (2) UTI (urinary tract infection) Status: Acute (3) Encounter for Cummings catheter removal Status: Acute (4) HTN (hypertension) Status: Acute
[2017-03-05] MEDS: Albuterol-Ipratrop 3 mg / 0.5 (3 ml) UD INH SCH ×4 (01:30→20:02)
[2017-03-05] MEDS: Sodium Chloride 0.9% 1,000 ML IV SCH (02:09)
[2017-03-05 08:12] LABS: HEMOGLOBIN 10.1 g/dL (12.0-18.0); MEAN CELL VOLUME 87.7 fL (80.0-94.0); MEAN CORPUSCULAR HEMOGLOBIN 30.1 pg (27.0-31.0); MEAN CORPUSCULAR HGB CONC 34.3 g/dL (33.0-37.0); MEAN PLATELET VOLUME 7.5 fL (7.2-11.7); RBC 3.37 Mil/uL (4.40-5.90); RED CELL DISTRIBUTION WIDTH 16.2 % (11.5-14.5); WHITE BLOOD COUNT 4.8 K/uL (4.8-10.8)
[2017-03-05 08:41] LABS: ALB/GLOB RATIO 0.8 (1.0-2.1); ALBUMIN 2.5 g/dL (3.5-5.0); ALT/SGPT 19 U/L (21-72); AST/SGOT 18 U/L (17-59); BLOOD UREA NITROGEN 9 mg/dL (9-20); CALCIUM 7.4 mg/dl (8.6-10.4); GFR AFRICAN-AMERICAN > 60; GFR NON-AFRICAN AMERICAN > 60
[2017-03-05] MEDS: Enoxaparin 30 mg Syringe SC SCH (09:19)
--- NOTE | 2017-03-05 10:29 | CP.PCM.PN ---
<Joe Black - Last Filed: 03/05/17 10:25> Subjective - Date & Time of Evaluation Date of Evaluation: 03/05/17 Time of Evaluation: 10:25 - Subjective Subjective: 81 yo male patient was seen at bedside today concerning unstageable decubitus ulceration to Left foot. Patient was AAO x 3 and NAD, resting comfortably in bed at time of examination. Denies any acute overnight events or new onset pain. Denies N/V/F/C/CP/SOB/posterior calf pain. Multipodus boots are noted to be in place at time of visit. Objective - Vital Signs/Intake and Output Vital Signs (last 24 hours): Temp Pulse Resp BP Pulse Ox 97.5 F L 98 H 20 129/68 100 03/05/17 08:17 03/05/17 08:17 03/05/17 08:17 03/05/17 08:17 03/05/17 08:17 Intake and Output: 03/05/17 03/05/17 06:59 18:59 Intake Total 2110 Output Total 300 Balance 1810 - Medications Medications: Current Medications Acetaminophen (Tylenol 325mg Tab) 650 mg PO Q6H PRN PRN Reason: Pain, moderate (4-7) Last Admin: 03/05/17 09:23 Dose: 650 mg Albuterol/Ipratropium (Duoneb 3 Mg/0.5 Mg (3 Ml) Ud) 3 ml INH RQ6 [facility] Last Admin: 03/05/17 08:25 Dose: Not Given Enoxaparin Sodium (Lovenox) 30 mg SC DAILY [facility] Last Admin: 03/05/17 09:19 Dose: 30 mg Famotidine (Pepcid) 20 mg IVP DAILY [facility] Last Admin: 03/05/17 09:19 Dose: 20 mg Ceftriaxone Sodium 1 gm/ (Sodium Chloride) 100 mls @ 100 mls/hr IVPB DAILY [facility] Last Admin: 03/05/17 09:19 Dose: 100 mls/hr Sodium Chloride (Sodium Chloride 0.9%) 1,000 mls @ 100 mls/hr IV .Q10H [facility] Last Admin: 03/05/17 02:09 Dose: Not Given Vancomycin/Sodium Chloride (Vancomycin 1 Gm/Ns 200 Ml) 1 gm in 200 mls @ 133 mls/hr IVPB Q24H [facility] Stop: 03/08/17 18:01 Last Admin: 03/04/17 17:24 Dose: 133 mls/hr Rosuvastatin Calcium (Crestor) 10 mg PO HS [facility] Last Admin: 03/04/17 22:02 Dose: 10 mg Tamsulosin HCl (Flomax) 0.4 mg PO DAILY [facility] Last Admin: 03/05/17 09:19 Dose: 0.4 mg - Labs Labs: 03/05/17 08:03 03/05/17 08:03 PT 14.6 SECONDS (9.7-12.2) H 03/02/17 21:00 INR 1.3 03/02/17 21:00 APTT 33 SECONDS (21-34) 03/02/17 21:00 - Constitutional Appears: Well, Non-toxic, No Acute Distress - Extremities Exam Additional comments: Bilateral lower extremity exam DERM: Mycotic toenails noted x10 bilaterally. LEFT: Unstageable decubitus ulceration to Left heel measuring 5cm x 4cm with no drainage. No PTB, no fluctuance. No mal-odor noted. No sign of acute infection is noted. No interdigital maceration noted. Another unstabeagle ulceration noted to lateral aspect of LEFT 5th metatarsal head measuring 1.5cmx 1.5cm with dried eschar overlaying. No PTB, no drainage, no mal-odor noted. No fluctuance. RIGHT: No open wounds noted. No PTB. No mal-odor noted. No sign of acute infection is noted. No interdigital maceration noted. VASC: Non-palpable DP and PT noted bilaterally. 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 ORTHO: Pain on palpation to left heel at the site of ulceration. No pain induced on palpation to left foot 5th metatarsal head NEURO: Gross sensation intact. Tested with [place] Mck[place] Monofilament to plantar feet at multiple points. - Neurological Exam Neurological Exam: Alert, Awake, Oriented x3 - Psychiatric Exam Psychiatric exam: Normal Affect, Normal Mood Assessment and Plan - Assessment and Plan (Free Text) Assessment: 81 yo male patient presents with unstageable decubitus ulceration to Left foot. Plan: Patient seen and evaluated at bedside with attending Dr. Celeste Afebrile, absent leukocytosis L foot xray 03/04/17: No evidence of OM L foot dressed with betadine soaked gauze, DSD, multipodus boots Continue multipodus boots No surgical intervention planned at this time Patient stable from podiatric standpoint Podiatry will continue to follow while patient in house <Nathaniel Celeste - Last Filed: 03/05/17 18:32> Objective - Vital Signs/Intake and Output Vital Signs (last 24 hours): Temp Pulse Resp BP Pulse Ox 97.6 F 106 H 18 143/75 100 03/05/17 16:00 03/05/17 16:00 03/05/17 16:00 03/05/17 16:00 03/05/17 16:00 Intake and Output: 03/05/17 03/05/17 06:59 18:59 Intake Total 2110 1300 Output Total 300 Balance 1810 1300 - Medications Medications: Current Medications Acetaminophen (Tylenol 325mg Tab) 650 mg PO Q6H PRN PRN Reason: Pain, moderate (4-7) Last Admin: 03/05/17 09:23 Dose: 650 mg Albuterol/Ipratropium (Duoneb 3 Mg/0.5 Mg (3 Ml) Ud) 3 ml INH RQ6 [facility] Last Admin: 03/05/17 14:43 Dose: 3 ml Enoxaparin Sodium (Lovenox) 30 mg SC DAILY [facility] Last Admin: 03/05/17 09:19 Dose: 30 mg Famotidine (Pepcid) 20 mg IVP DAILY [facility] Last Admin: 03/05/17 09:19 Dose: 20 mg Ceftriaxone Sodium 1 gm/ (Sodium Chloride) 100 mls @ 100 mls/hr IVPB DAILY [facility] Last Admin: 03/05/17 09:19 Dose: 100 mls/hr Sodium Chloride (Sodium Chloride 0.9%) 1,000 mls @ 100 mls/hr IV .Q10H [facility] Last Admin: 03/05/17 02:09 Dose: Not Given Vancomycin/Sodium Chloride (Vancomycin 1 Gm/Ns 200 Ml) 1 gm in 200 mls @ 133 mls/hr IVPB Q24H [facility] Stop: 03/08/17 18:01 Last Admin: 03/05/17 17:40 Dose: 133 mls/hr Rosuvastatin Calcium (Crestor) 10 mg PO HS [facility] Last Admin: 03/04/17 22:02 Dose: 10 mg Tamsulosin HCl (Flomax) 0.4 mg PO DAILY [facility] Last Admin: 03/05/17 09:19 Dose: 0.4 mg - Labs Labs: 03/05/17 08:03 03/05/17 08:03 PT 14.6 SECONDS (9.7-12.2) H 03/02/17 21:00 INR 1.3 03/02/17 21:00 APTT 33 SECONDS (21-34) 03/02/17 21:00 Assessment and Plan - Assessment and Plan (Free Text) Plan: Pt seen at bedside .Labs and chart reviewed . continue local wound care . Dr Celeste .
--- NOTE | 2017-03-05 13:51 | CP.PCM.PN ---
Subjective - Date & Time of Evaluation Date of Evaluation: 03/05/17 Time of Evaluation: 14:25 - Subjective Subjective: Pt seen and examined Objective - Vital Signs/Intake and Output Vital Signs (last 24 hours): Temp Pulse Resp BP Pulse Ox 97.5 F L 98 H 20 129/68 100 03/05/17 08:17 03/05/17 08:17 03/05/17 08:17 03/05/17 08:17 03/05/17 08:17 Intake and Output: 03/05/17 03/05/17 06:59 18:59 Intake Total 2110 Output Total 300 Balance 1810 - Medications Medications: Current Medications Acetaminophen (Tylenol 325mg Tab) 650 mg PO Q6H PRN PRN Reason: Pain, moderate (4-7) Last Admin: 03/05/17 09:23 Dose: 650 mg Albuterol/Ipratropium (Duoneb 3 Mg/0.5 Mg (3 Ml) Ud) 3 ml INH RQ6 [facility] Last Admin: 03/05/17 08:25 Dose: Not Given Enoxaparin Sodium (Lovenox) 30 mg SC DAILY [facility] Last Admin: 03/05/17 09:19 Dose: 30 mg Famotidine (Pepcid) 20 mg IVP DAILY [facility] Last Admin: 03/05/17 09:19 Dose: 20 mg Ceftriaxone Sodium 1 gm/ (Sodium Chloride) 100 mls @ 100 mls/hr IVPB DAILY [facility] Last Admin: 03/05/17 09:19 Dose: 100 mls/hr Sodium Chloride (Sodium Chloride 0.9%) 1,000 mls @ 100 mls/hr IV .Q10H [facility] Last Admin: 03/05/17 02:09 Dose: Not Given Vancomycin/Sodium Chloride (Vancomycin 1 Gm/Ns 200 Ml) 1 gm in 200 mls @ 133 mls/hr IVPB Q24H [facility] Stop: 03/08/17 18:01 Last Admin: 03/04/17 17:24 Dose: 133 mls/hr Rosuvastatin Calcium (Crestor) 10 mg PO HS [facility] Last Admin: 03/04/17 22:02 Dose: 10 mg Tamsulosin HCl (Flomax) 0.4 mg PO DAILY [facility] Last Admin: 03/05/17 09:19 Dose: 0.4 mg - Labs Labs: 03/05/17 08:03 03/05/17 08:03 PT 14.6 SECONDS (9.7-12.2) H 03/02/17 21:00 INR 1.3 03/02/17 21:00 APTT 33 SECONDS (21-34) 03/02/17 21:00
--- NOTE | 2017-03-05 16:39 | US ---
PROCEDURE: Ultrasound of the Bladder HISTORY: to check post void volume COMPARISON: None available. TECHNIQUE: Sonographic evaluation of the bladder was performed. FINDINGS: Mild to moderate diffuse bladder wall thickening. No evidence of intraluminal debris. No calculus or gross mass lesion. No free fluid in pelvis. Prevoid Volume: 865.4 cc. Post void residual: The patient could not void. IMPRESSION: Prevoid bladder volume is 865.4 mL. Patient could not void therefore cannot calculate the postvoid residual. [id number] diffuse bladder wall thickening.
[2017-03-05] MEDS: Vancomycin 1 gm/NS 200 ml 1 GM/200 ML BAG IVPB SCH (17:40)
--- NOTE | 2017-03-05 21:04 | CP.PCM.PN ---
Subjective - Date & Time of Evaluation Date of Evaluation: 03/05/17 Time of Evaluation: 21:04 - Subjective Subjective: CHIEF COMPLAINTS TODAY : afebrile, s/p Romero removal by . PT VOIDING BUT STREAM POOR URINE VOIDED > 400 CC X 3 DENIES LOWER ABDOMINAL DISCOMFORT. ROS. HEENT : N. Resp : No cough, wheezing ,pleuritic CP ,or hemoptysis Cardio : No anginal CP, PND, orthopnea, palpitation GI : No abd.pain, n/v ,diarrhea or GI bleeding . 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 Musculoskel : No joint swelling , Derm : No rash Psych : Normal affect. Ext : No swelling ,calf pain PE. Pt. is alert awake in no distress. V.S As noted in the chart Head ,ear nose,throat and eyes : Normal. Neck : Supple with normal carotids. Lungs: Clear air entry. Heart : S1 & S2 normal with S4. No murmur. Abd : Soft non tender with normal bowel sounds. Neuro : Moves all ext. with no localized deficit. Ext : No edema with intact pulses.Non tender calves LT, FOOT IN DRY DRESSING Derm : No rashes or decubitus ulcer. LABS/RADIOLOGY: reviewed. urine culture +ve MRSA RENAL FUNCTION STABLE. ASSESSMENT SEPSIS SEC. UTI/CHRONIC Romero +VE MRSA HX . URINARY RETENTION / ? NEUROGENIC BLADDER CA OF PROSTATE. HTN. lEFT FOOT DECUBITUS ULCER-UNSTAGEABLE. /PLAN : PER PT FOR BLADDER US .IN AM. REPEAT UA/ URINE CULTURE. CONTINUE iv CEFTRIAXONE 1 G ONCE A DAY DAILY.03/03/17 cONTINUE iv VANCOMYCIN 1 G ONCE A DAY DAILY.03/03/17 fOLLOW-UP vANCO TROUGH LEVEL PRIOR TO THE FOURTH DOSE AND KEEP BETWEEN 10 AND 20 ROMERO HAS BEEN REMOVED BY TRIAL OF VOIDING IN PROGRESS. CONTACT PRECAUTIONS. Objective - Vital Signs/Intake and Output Vital Signs (last 24 hours): Temp Pulse Resp BP Pulse Ox 97.6 F 106 H 18 143/75 100 03/05/17 16:00 03/05/17 16:00 03/05/17 16:00 03/05/17 16:00 03/05/17 16:00 Intake and Output: 03/05/17 03/06/17 18:59 06:59 Intake Total 1300 Balance 1300 - Medications Medications: Current Medications Acetaminophen (Tylenol 325mg Tab) 650 mg PO Q6H PRN PRN Reason: Pain, moderate (4-7) Last Admin: 03/05/17 09:23 Dose: 650 mg Albuterol/Ipratropium (Duoneb 3 Mg/0.5 Mg (3 Ml) Ud) 3 ml INH RQ6 [facility] Last Admin: 03/05/17 20:02 Dose: Not Given Enoxaparin Sodium (Lovenox) 30 mg SC DAILY [facility] Last Admin: 03/05/17 09:19 Dose: 30 mg Famotidine (Pepcid) 20 mg IVP DAILY [facility] Last Admin: 03/05/17 09:19 Dose: 20 mg Ceftriaxone Sodium 1 gm/ (Sodium Chloride) 100 mls @ 100 mls/hr IVPB DAILY [facility] Last Admin: 03/05/17 09:19 Dose: 100 mls/hr Sodium Chloride (Sodium Chloride 0.9%) 1,000 mls @ 100 mls/hr IV .Q10H [facility] Last Admin: 03/05/17 02:09 Dose: Not Given Vancomycin/Sodium Chloride (Vancomycin 1 Gm/Ns 200 Ml) 1 gm in 200 mls @ 133 mls/hr IVPB Q24H [facility] Stop: 03/08/17 18:01 Last Admin: 03/05/17 17:40 Dose: 133 mls/hr Rosuvastatin Calcium (Crestor) 10 mg PO HS [facility] Last Admin: 03/04/17 22:02 Dose: 10 mg Tamsulosin HCl (Flomax) 0.4 mg PO DAILY [facility] Last Admin: 03/05/17 09:19 Dose: 0.4 mg - Labs Labs: 03/05/17 08:03 03/05/17 08:03 PT 14.6 SECONDS (9.7-12.2) H 03/02/17 21:00 INR 1.3 03/02/17 21:00 APTT 33 SECONDS (21-34) 03/02/17 21:00
[2017-03-06] MEDS: Albuterol-Ipratrop 3 mg / 0.5 (3 ml) UD INH SCH ×4 (01:36→20:53)
[2017-03-06] MEDS: Sodium Chloride 0.9% 1,000 ML IV SCH ×3 (04:54→17:58)
[2017-03-06 07:16] LABS: URINE BACTERIA RARE (<OCC); URINE BILIRUBIN NEGATIVE (NEGATIVE); URINE BLOOD 1+ (NEGATIVE); URINE CLARITY Clear (Clear); URINE COLOR Yellow (YELLOW); URINE GLUCOSE (UA) NORMAL (Normal); URINE LEUKOCYTE ESTERASE NEG Leu/uL (Negative); URINE NITRATE NEGATIVE (NEGATIVE); URINE PROTEIN NEGATIVE (NEGATIVE); URINE UROBILINOGEN NORMAL mg/dL (0.2-1.0)
[2017-03-06] MEDS: Enoxaparin 30 mg Syringe SC SCH (09:32)
--- NOTE | 2017-03-06 12:29 | CP.PCM.PN ---
Subjective - Date & Time of Evaluation Date of Evaluation: 03/06/17 Time of Evaluation: 12:26 - Subjective Subjective: 81 yo male patient was seen at bedside today concerning unstageable decubitus ulceration to Left foot. Patient was AAO x 3 and NAD, resting comfortably in bed at time of examination. Denies any acute overnight events or new onset pain. Denies N/V/F/C/CP/SOB/posterior calf pain. Multipodus boots are noted to be in place at time of visit. Patient denies any further pedal complaints at this time Objective - Vital Signs/Intake and Output Vital Signs (last 24 hours): Temp Pulse Resp BP Pulse Ox 98.7 F 100 H 20 115/59 L 98 03/06/17 08:00 03/06/17 08:00 03/06/17 08:00 03/06/17 08:00 03/06/17 08:00 Intake and Output: 03/06/17 03/06/17 06:59 18:59 Intake Total 2200 Balance 2200 - Medications Medications: Current Medications Acetaminophen (Tylenol 325mg Tab) 650 mg PO Q6H PRN PRN Reason: Pain, moderate (4-7) Last Admin: 03/06/17 09:34 Dose: 650 mg Albuterol/Ipratropium (Duoneb 3 Mg/0.5 Mg (3 Ml) Ud) 3 ml INH RQ6 [facility] Last Admin: 03/06/17 08:31 Dose: 3 ml Enoxaparin Sodium (Lovenox) 30 mg SC DAILY [facility] Last Admin: 03/06/17 09:32 Dose: 30 mg Famotidine (Pepcid) 20 mg IVP DAILY [facility] Last Admin: 03/06/17 09:33 Dose: 20 mg Ceftriaxone Sodium 1 gm/ (Sodium Chloride) 100 mls @ 100 mls/hr IVPB DAILY [facility] Last Admin: 03/06/17 09:32 Dose: 100 mls/hr Sodium Chloride (Sodium Chloride 0.9%) 1,000 mls @ 100 mls/hr IV .Q10H [facility] Last Admin: 03/06/17 04:54 Dose: 100 mls/hr Vancomycin/Sodium Chloride (Vancomycin 1 Gm/Ns 200 Ml) 1 gm in 200 mls @ 133 mls/hr IVPB Q24H [facility] Stop: 01/02/18 18:01 Last Admin: 03/05/17 17:40 Dose: 133 mls/hr Rosuvastatin Calcium (Crestor) 10 mg PO HS [facility] Last Admin: 03/05/17 21:29 Dose: Not Given Tamsulosin HCl (Flomax) 0.4 mg PO DAILY [facility] Last Admin: 03/06/17 09:33 Dose: 0.4 mg - Labs Labs: 03/05/17 08:03 03/05/17 08:03 PT 14.6 SECONDS (9.7-12.2) H 03/02/17 21:00 INR 1.3 03/02/17 21:00 APTT 33 SECONDS (21-34) 03/02/17 21:00 - Constitutional Appears: Well, Non-toxic, No Acute Distress - Extremities Exam Additional comments: Bilateral lower extremity exam DERM: Mycotic toenails noted x10 bilaterally. LEFT: Unstageable decubitus ulceration to Left heel measuring 5cm x 4cm with no drainage. No PTB, no fluctuance. No mal-odor noted. No sign of acute infection is noted. No interdigital maceration noted. Another unstabeagle ulceration noted to lateral aspect of LEFT 5th metatarsal head measuring 1.5cmx 1.5cm with dried eschar overlaying. No PTB, no drainage, no mal-odor noted. No fluctuance. RIGHT: No open wounds noted. No PTB. No mal-odor noted. No sign of acute infection is noted. No interdigital maceration noted. VASC: Non-palpable DP and PT noted bilaterally. 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 ORTHO: Minimal pain on palpation to left heel at the site of ulceration. No pain induced on palpation to left foot 5th metatarsal head NEURO: Epicritic and protective sensation grossly intact b/l - Neurological Exam Neurological Exam: Alert, Awake, Oriented x3 - Psychiatric Exam Psychiatric exam: Normal Affect, Normal Mood Assessment and Plan - Assessment and Plan (Free Text) Assessment: 81 yo male patient presents with unstageable decubitus ulceration to Left foot. Plan: Patient seen and evaluated at bedside Plan discussed with attending Dr. Celeste Afebrile, absent leukocytosis L foot xray 03/04/17: No evidence of OM L foot dressed with betadine soaked gauze, DSD, multipodus boots Continue multipodus boots No surgical intervention planned at this time Patient stable from podiatric standpoint Podiatry will continue to follow while patient in house
[2017-03-06 17:10] LABS: BLOOD UREA NITROGEN 8 mg/dL (9-20); CALCIUM 6.8 mg/dl (8.6-10.4); GFR AFRICAN-AMERICAN > 60; GFR NON-AFRICAN AMERICAN > 60
[2017-03-06] MEDS: Vancomycin 1 gm/NS 200 ml 1 GM/200 ML BAG IVPB SCH (17:55)
--- NOTE | 2017-03-06 21:41 | CP.PCM.PN ---
Subjective - Date & Time of Evaluation Date of Evaluation: 03/06/17 Time of Evaluation: 10:00 - Subjective Subjective: pt is seen and examined, MRSA in urine, foleys reinserted, no acute distress, on antibiotics and Iv fluids Objective - Vital Signs/Intake and Output Vital Signs (last 24 hours): Temp Pulse Resp BP Pulse Ox 98.3 F 98 H 20 99/57 L 99 03/06/17 16:00 03/06/17 16:00 03/06/17 16:00 03/06/17 16:00 03/06/17 16:00 Intake and Output: 03/06/17 03/07/17 18:59 06:59 Intake Total 1380 Output Total 1000 Balance 380 - Medications Medications: Current Medications Acetaminophen (Tylenol 325mg Tab) 650 mg PO Q6H PRN PRN Reason: Pain, moderate (4-7) Last Admin: 03/06/17 09:34 Dose: 650 mg Albuterol/Ipratropium (Duoneb 3 Mg/0.5 Mg (3 Ml) Ud) 3 ml INH RQ6 [facility] Last Admin: 03/06/17 20:53 Dose: Not Given Enoxaparin Sodium (Lovenox) 30 mg SC DAILY [facility] Last Admin: 03/06/17 09:32 Dose: 30 mg Famotidine (Pepcid) 20 mg IVP DAILY [facility] Last Admin: 03/06/17 09:33 Dose: 20 mg Ceftriaxone Sodium 1 gm/ (Sodium Chloride) 100 mls @ 100 mls/hr IVPB DAILY [facility] Last Admin: 03/06/17 09:32 Dose: 100 mls/hr Vancomycin/Sodium Chloride (Vancomycin 1 Gm/Ns 200 Ml) 1 gm in 200 mls @ 133 mls/hr IVPB Q24H [facility] Stop: 03/08/17 18:01 Last Admin: 03/06/17 17:55 Dose: 133 mls/hr Rosuvastatin Calcium (Crestor) 10 mg PO HS [facility] Last Admin: 03/05/17 21:29 Dose: Not Given Tamsulosin HCl (Flomax) 0.4 mg PO DAILY [facility] Last Admin: 03/06/17 09:33 Dose: 0.4 mg - Labs Labs: 03/05/17 08:03 03/06/17 16:34 PT 14.6 SECONDS (9.7-12.2) H 03/02/17 21:00 INR 1.3 03/02/17 21:00 APTT 33 SECONDS (21-34) 03/02/17 21:00 - Constitutional Appears: No Acute Distress - Head Exam Head Exam: ATRAUMATIC, NORMAL INSPECTION, NORMOCEPHALIC - Eye Exam Eye Exam: EOMI, Normal appearance, PERRL Pupil Exam: NORMAL ACCOMODATION, PERRL - Respiratory Exam Respiratory Exam: Clear to Ausculation Bilateral, NORMAL BREATHING PATTERN - Cardiovascular Exam Cardiovascular Exam: REGULAR RHYTHM, +S1, +S2. absent: Murmur - GI/Abdominal Exam GI & Abdominal Exam: Soft, Normal Bowel Sounds. absent: Tenderness Assessment and Plan (1) CA prostate, adenoca Status: Acute (2) Sepsis Status: Acute (3) UTI (urinary tract infection) Status: Acute (4) Acute urinary retention Status: Acute (5) CAD (coronary artery disease) Status: Acute
[2017-03-07] MEDS: Albuterol-Ipratrop 3 mg / 0.5 (3 ml) UD INH SCH ×4 (02:12→19:54)
[2017-03-07] MEDS: Sodium Chloride 0.9% 1,000 ML IV SCH (06:07)
[2017-03-07] MEDS: Enoxaparin 30 mg Syringe SC SCH (09:05)
--- NOTE | 2017-03-07 15:18 | CP.PCM.PN ---
Subjective - Date & Time of Evaluation Date of Evaluation: 03/07/17 Time of Evaluation: 15:16 - Subjective Subjective: 81 yo male patient was seen at bedside today concerning unstageable decubitus ulceration to Left foot. Patient was AAO x 3 and NAD, resting comfortably in bed at time of examination. Denies any acute overnight events or new onset pain. Denies N/V/F/C/CP/SOB/posterior calf pain. Multipodus boots are noted to be in place at time of visit. Patient denies any further pedal complaints at this time and states that his overall strength is improving as his appetite is improving Objective - Vital Signs/Intake and Output Vital Signs (last 24 hours): Temp Pulse Resp BP Pulse Ox 97.0 F L 87 20 120/65 100 03/07/17 08:15 03/07/17 08:15 03/07/17 08:15 03/07/17 08:15 03/07/17 08:15 Intake and Output: 03/07/17 03/07/17 06:59 18:59 Intake Total 1050 1280 Output Total 500 350 Balance 550 930 - Medications Medications: Current Medications Acetaminophen (Tylenol 325mg Tab) 650 mg PO Q6H PRN PRN Reason: Pain, moderate (4-7) Last Admin: 03/06/17 09:34 Dose: 650 mg Albuterol/Ipratropium (Duoneb 3 Mg/0.5 Mg (3 Ml) Ud) 3 ml INH RQ6 [facility] Last Admin: 03/07/17 13:09 Dose: Not Given Enoxaparin Sodium (Lovenox) 30 mg SC DAILY [facility] Last Admin: 03/07/17 09:05 Dose: 30 mg Famotidine (Pepcid) 20 mg IVP DAILY [facility] Last Admin: 03/07/17 09:05 Dose: 20 mg Ceftriaxone Sodium 1 gm/ (Sodium Chloride) 100 mls @ 100 mls/hr IVPB DAILY [facility] Last Admin: 03/07/17 10:07 Dose: 100 mls/hr Vancomycin/Sodium Chloride (Vancomycin 1 Gm/Ns 200 Ml) 1 gm in 200 mls @ 133 mls/hr IVPB Q24H [facility] Stop: 03/08/17 18:01 Last Admin: 03/06/17 17:55 Dose: 133 mls/hr Rosuvastatin Calcium (Crestor) 10 mg PO HS [facility] Last Admin: 03/05/17 21:29 Dose: Not Given Tamsulosin HCl (Flomax) 0.4 mg PO DAILY [facility] Last Admin: 03/07/17 09:05 Dose: 0.4 mg - Labs Labs: 03/05/17 08:03 03/06/17 16:34 PT 14.6 SECONDS (9.7-12.2) H 03/02/17 21:00 INR 1.3 03/02/17 21:00 APTT 33 SECONDS (21-34) 03/02/17 21:00 - Constitutional Appears: Well, Non-toxic, No Acute Distress - Extremities Exam Additional comments: Bilateral lower extremity exam DERM: Mycotic toenails noted x10 bilaterally. LEFT: Unstageable decubitus ulceration to Left heel measuring 5cm x 4cm with no drainage. No PTB, no fluctuance. No mal-odor noted. No sign of acute infection is noted. No interdigital maceration noted. Another unstabeagle ulceration noted to lateral aspect of LEFT 5th metatarsal head measuring 1.5cmx 1.5cm with dried eschar overlaying. No PTB, no drainage, no mal-odor noted. No fluctuance. RIGHT: No open wounds noted. No PTB. No mal-odor noted. No sign of acute infection is noted. No interdigital maceration noted. VASC: Non-palpable DP and PT noted bilaterally. 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 ORTHO: Minimal pain on palpation to left heel at the site of ulceration. No pain induced on palpation to left foot 5th metatarsal head NEURO: Epicritic and protective sensation grossly intact b/l - Neurological Exam Neurological Exam: Alert, Awake, Oriented x3 - Psychiatric Exam Psychiatric exam: Normal Affect, Normal Mood Assessment and Plan - Assessment and Plan (Free Text) Assessment: 81 yo male patient presents with unstageable decubitus ulceration to Left foot. Plan: Patient seen and evaluated at bedside Plan discussed with attending Dr. Celeste Afebrile, absent leukocytosis L foot xray 03/04/17: No evidence of OM L foot dressed with betadine soaked gauze, DSD, multipodus boots Continue multipodus boots No surgical intervention planned at this time Patient stable from podiatric standpoint Podiatry will continue to follow while patient in house
[2017-03-07] MEDS ORDERED: Potassium Chloride 20 mEq/15 ml LIQ UD PO ONE (16:48)
[2017-03-07] MEDS: Vancomycin 1 gm/NS 200 ml 1 GM/200 ML BAG IVPB SCH (18:04)
--- NOTE | 2017-03-07 21:45 | CP.PCM.PN ---
Subjective - Date & Time of Evaluation Date of Evaluation: 03/07/17 Time of Evaluation: 20:00 - Subjective Subjective: Pt seen and evaluated resting comfortably in bed at time of examination. Denies any acute overnight events or new onset pain. Denies N/V/F/C/CP/SOB/posterior calf pain. Multipodus boots are noted to be in place at time of visit. Patient denies any further pedal complaints at this time and states that his overall strength is improving as his appetite is improving Objective - Vital Signs/Intake and Output Vital Signs (last 24 hours): Temp Pulse Resp BP Pulse Ox 98.2 F 90 20 124/77 100 03/07/17 15:09 03/07/17 15:09 03/07/17 15:09 03/07/17 15:09 03/07/17 15:09 Intake and Output: 03/07/17 03/08/17 18:59 06:59 Intake Total 1280 Output Total 350 Balance 930 - Medications Medications: Current Medications Acetaminophen (Tylenol 325mg Tab) 650 mg PO Q6H PRN PRN Reason: Pain, moderate (4-7) Last Admin: 03/06/17 09:34 Dose: 650 mg Albuterol/Ipratropium (Duoneb 3 Mg/0.5 Mg (3 Ml) Ud) 3 ml INH RQ6 [facility] Last Admin: 03/07/17 19:54 Dose: Not Given Enoxaparin Sodium (Lovenox) 30 mg SC DAILY [facility] Last Admin: 03/07/17 09:05 Dose: 30 mg Famotidine (Pepcid) 20 mg PO DAILY [facility] Vancomycin/Sodium Chloride (Vancomycin 1 Gm/Ns 200 Ml) 1 gm in 200 mls @ 133 mls/hr IVPB Q24H [facility] Stop: 03/08/17 18:01 Last Admin: 03/07/17 18:04 Dose: 133 mls/hr Rosuvastatin Calcium (Crestor) 10 mg PO HS [facility] Last Admin: 03/05/17 21:29 Dose: Not Given Tamsulosin HCl (Flomax) 0.4 mg PO DAILY [facility] Last Admin: 03/07/17 09:05 Dose: 0.4 mg - Labs Labs: 03/05/17 08:03 03/06/17 16:34 PT 14.6 SECONDS (9.7-12.2) H 03/02/17 21:00 INR 1.3 03/02/17 21:00 APTT 33 SECONDS (21-34) 03/02/17 21:00 - Constitutional Appears: No Acute Distress - Head Exam Head Exam: ATRAUMATIC, NORMAL INSPECTION, NORMOCEPHALIC - Eye Exam Eye Exam: EOMI, Normal appearance, PERRL Pupil Exam: NORMAL ACCOMODATION, PERRL - ENT Exam ENT Exam: Mucous Membranes Moist, Normal Exam - Neck Exam Neck Exam: Full ROM, Normal Inspection. absent: Lymphadenopathy - Respiratory Exam Respiratory Exam: Clear to Ausculation Bilateral, NORMAL BREATHING PATTERN - Cardiovascular Exam Cardiovascular Exam: REGULAR RHYTHM, +S1, +S2. absent: Murmur - GI/Abdominal Exam GI & Abdominal Exam: Soft, Normal Bowel Sounds. absent: Tenderness Assessment and Plan (1) CA prostate, adenoca Status: Acute (2) Sepsis Status: Acute (3) UTI (urinary tract infection) Status: Acute (4) Acute urinary retention Status: Acute (5) CAD (coronary artery disease) Status: Acute
--- NOTE | 2017-03-07 23:08 | CP.PCM.PN ---
Subjective - Date & Time of Evaluation Date of Evaluation: 03/07/17 Time of Evaluation: 23:08 - Subjective Subjective: CHIEF COMPLAINTS TODAY : afebrile, s/p Romero REINSERTION BY . BLADDER ULTRASOUND NOTED Prevoid urine 8 65 cc post void -patient could not void. ROS. HEENT : N. Resp : No cough, wheezing ,pleuritic CP ,or hemoptysis Cardio : No anginal CP, PND, orthopnea, palpitation GI : No abd.pain, n/v ,diarrhea or GI bleeding . SIGHT EFFECTS SPECIALIST : No headache, vertigo, focal deficit. Musculoskel : No joint swelling , Derm : No rash Psych : Normal affect. Ext : No swelling ,calf pain PE. Pt. is alert awake in no distress. V.S As noted in the chart Head ,ear nose,throat and eyes : Normal. Neck : Supple with normal carotids. Lungs: Clear air entry. Heart : S1 & S2 normal with S4. No murmur. Abd : Soft non tender with normal bowel sounds. Neuro : Moves all ext. with no localized deficit. Ext : No edema with intact pulses.Non tender calves LT, FOOT IN DRY DRESSING Derm : No rashes or decubitus ulcer. LABS/RADIOLOGY: reviewed. repeat urine culture 03/06/17 -ve growth. urine culture +ve MRSA RENAL FUNCTION STABLE. ASSESSMENT SEPSIS SEC. UTI/CHRONIC Romero +VE MRSA HX . URINARY RETENTION / ? NEUROGENIC BLADDER CA OF PROSTATE. HTN. lEFT FOOT DECUBITUS ULCER-UNSTAGEABLE. /PLAN : PER PT to stay with Romero for now OFF iv CEFTRIAXONE 1 G ONCE A DAY DAILY.03/03/17 CONTINUE iv VANCOMYCIN 1 G ONCE A DAY DAILY.03/03/17 -DAY 5 X 3 DAYS MORE. LT FOOT ULCER -DRY. PER PODIATRY. CONTACT PRECAUTIONS. Objective - Vital Signs/Intake and Output Vital Signs (last 24 hours): Temp Pulse Resp BP Pulse Ox 98.2 F 90 20 124/77 100 03/07/17 15:09 03/07/17 15:09 03/07/17 15:09 03/07/17 15:09 03/07/17 15:09 Intake and Output: 03/07/17 03/08/17 18:59 06:59 Intake Total 1280 Output Total 350 Balance 930 - Medications Medications: Current Medications Acetaminophen (Tylenol 325mg Tab) 650 mg PO Q6H PRN PRN Reason: Pain, moderate (4-7) Last Admin: 03/06/17 09:34 Dose: 650 mg Albuterol/Ipratropium (Duoneb 3 Mg/0.5 Mg (3 Ml) Ud) 3 ml INH RQ6 [facility] Last Admin: 03/07/17 19:54 Dose: Not Given Enoxaparin Sodium (Lovenox) 30 mg SC DAILY [facility] Last Admin: 03/07/17 09:05 Dose: 30 mg Famotidine (Pepcid) 20 mg PO DAILY [facility] Vancomycin/Sodium Chloride (Vancomycin 1 Gm/Ns 200 Ml) 1 gm in 200 mls @ 133 mls/hr IVPB Q24H [facility] Stop: 03/08/17 18:01 Last Admin: 03/07/17 18:04 Dose: 133 mls/hr Rosuvastatin Calcium (Crestor) 10 mg PO HS [facility] Last Admin: 03/07/17 23:06 Dose: 10 mg Tamsulosin HCl (Flomax) 0.4 mg PO DAILY [facility] Last Admin: 03/07/17 09:05 Dose: 0.4 mg - Labs Labs: 03/05/17 08:03 03/06/17 16:34 PT 14.6 SECONDS (9.7-12.2) H 03/02/17 21:00 INR 1.3 03/02/17 21:00 APTT 33 SECONDS (21-34) 03/02/17 21:00
[2017-03-08] MEDS: Albuterol-Ipratrop 3 mg / 0.5 (3 ml) UD INH SCH (01:37)
[2017-03-08] MEDS: Sodium Chloride 0.9% 1,000 ML IV SCH ×2 (04:59→13:43)
--- NOTE | 2017-03-08 09:20 | CP.PCM.PN ---
Subjective - Date & Time of Evaluation Date of Evaluation: 03/08/17 Time of Evaluation: 08:45 - Subjective Subjective: Podiatry note for Dr. Celeste 81 yo male patient was seen at bedside this AM with attending Dr. Celeste concerning unstageable decubitus ulceration to Left foot. Patient is resting comfortably in bed, AAO x 3 and NAD. Denies any acute overnight events or new onset pain. Denies N/V/F/C/CP/SOB/posterior calf pain. Multipodus boots are noted to be in place at time of visit. Objective - Vital Signs/Intake and Output Vital Signs (last 24 hours): Temp Pulse Resp BP Pulse Ox 98.3 F 95 H 22 133/81 96 03/08/17 07:55 03/08/17 07:55 03/08/17 07:55 03/08/17 07:55 03/08/17 07:55 Intake and Output: 03/08/17 03/08/17 06:59 18:59 Intake Total 900 Output Total 1400 Balance -500 - Medications Medications: Current Medications Acetaminophen (Tylenol 325mg Tab) 650 mg PO Q6H PRN PRN Reason: Pain, moderate (4-7) Last Admin: 03/06/17 09:34 Dose: 650 mg Enoxaparin Sodium (Lovenox) 30 mg SC DAILY [facility] Last Admin: 03/07/17 09:05 Dose: 30 mg Famotidine (Pepcid) 20 mg PO DAILY [facility] Vancomycin/Sodium Chloride (Vancomycin 1 Gm/Ns 200 Ml) 1 gm in 200 mls @ 133 mls/hr IVPB Q24H [facility] Stop: 03/08/17 18:01 Last Admin: 03/07/17 18:04 Dose: 133 mls/hr Rosuvastatin Calcium (Crestor) 10 mg PO HS [facility] Last Admin: 03/07/17 23:06 Dose: 10 mg Tamsulosin HCl (Flomax) 0.4 mg PO DAILY [facility] Last Admin: 03/07/17 09:05 Dose: 0.4 mg - Labs Labs: 03/05/17 08:03 03/06/17 16:34 PT 14.6 SECONDS (9.7-12.2) H 03/02/17 21:00 INR 1.3 03/02/17 21:00 APTT 33 SECONDS (21-34) 03/02/17 21:00 - Constitutional Appears: Well, Non-toxic, No Acute Distress - Head Exam Head Exam: ATRAUMATIC - Extremities Exam Additional comments: Bilateral lower extremity exam DERM: Mycotic toenails noted x10 bilaterally. LEFT: Unstageable decubitus ulceration to Left heel measuring 5cm x 4cm with no drainage. No PTB, no fluctuance. No mal-odor noted. No sign of acute infection is noted. No interdigital maceration noted. Another unstabeagle ulceration noted to lateral aspect of LEFT 5th metatarsal head measuring 1.5cmx 1.5cm with dried eschar overlaying. No PTB, no drainage, no mal-odor noted. No fluctuance. RIGHT: No open wounds noted. No PTB. No mal-odor noted. No sign of acute infection is noted. No interdigital maceration noted. VASC: Non-palpable DP and PT noted bilaterally. 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 ORTHO: Pain on palpation to left heel at the site of ulceration. No pain induced on palpation to left foot 5th metatarsal head NEURO: Gross sensation intact. Tested with Climax Mckenzie Monofilament to plantar feet at multiple points. - Neurological Exam Neurological Exam: Alert, Awake, Oriented x3 - Psychiatric Exam Psychiatric exam: Normal Affect, Normal Mood - Skin Skin Exam: Normal Color, Warm Assessment and Plan - Assessment and Plan (Free Text) Assessment: 81 yo male patient presents with unstageable decubitus ulceration to Left foot. Plan: Patient seen and evaluated at bedside with attending Dr. Celeste Afebrile, absent leukocytosis L foot xray 03/04/17: No evidence of OM L foot dressed with betadine soaked gauze, DSD, multipodus boots Continue multipodus boots No surgical intervention planned at this time Patient stable from podiatric standpoint Podiatry will continue to follow while patient in house
[2017-03-08] MEDS: Enoxaparin 30 mg Syringe SC SCH (09:54)
--- NOTE | 2017-03-08 16:51 | PN ---
DATE: 03/06/2017 UROLOGY DAILY PROGRESS NOTE REASON FOR THE PROGRESS NOTE: Urinary retention, prostate cancer, and recurrent infections. See history and physical, consultation, and separate procedure note. The patient has urinary retention, we have been following for a couple of days. I inserted a Cummings catheter. See the plans listed below. PAST MEDICAL AND SURGICAL HISTORY: No other changes. PHYSICAL EXAMINATION: No change. DIAGNOSES: Urinary retention, recurrent episodes; prostate cancer; urinary tract infection with a positive culture with methicillin-resistant Staphylococcus aureus. At this point, the plan is as follows: Maintain a new Cummings catheter, we placed it with greater than 500 mL, maybe even 700 to 800. Clear yellow urine is noted. We will discuss the options. One is for possibility for TURP, possibility for cystostomy tube (although I think the patient is preferring not to have any catheter, we will discuss this at length). He is definitely trying to see what he can do to do anything to get rid of the catheter. We will discuss all these options. Regarding the prostate cancer, we will consider hormonal therapy or even better, we will consider the possibility for orchectomy. This maybe just better for the patient's general condition overall. Bebeto Glez MD
[2017-03-08] MEDS: Vancomycin 1 gm/NS 200 ml 1 GM/200 ML BAG IVPB SCH (18:22)
--- NOTE | 2017-03-08 18:49 | PN ---
DATE: 03/08/2017 UROLOGY PROGRESS NOTE See the previously dictated consult notes and chart notes. SUBJECTIVE: This is a very pleasant gentleman who is here with urinary retention. Cummings catheter was inserted on Tuesday, but he reports that he would like to see what he can do to get rid of that catheter. See the plans below. PAST MEDICAL AND SURGICAL HISTORY: No other changes. DIAGNOSES: Prostate cancer, urinary retention, and positive urine cultures. The patient is being followed by and he has been cleared from the infectious diseases standpoint and we are going to plan for a TURP. From a urology standpoint, the other options are discussed with the patient, but as discussed in the notes, he is preferring a TURP. The possibility for cystoscopy tube is mentioned. Regarding the prostate cancer and its treatment, we discussed the options of hormonal therapy versus orchiectomy. Various options are available for the patient and he is going to weigh the options. PLAN: 1. Maintain the current Cummings. 2. Patient will be at the OR tomorrow for a TURP and if cleared by infectious disease and also medically cleared, then further plans will follow. Bebeto Glez MD
--- NOTE | 2017-03-08 19:35 | CON ---
DATE: 03/03/2017 UROLOGY CONSULTATION REASON FOR CONSULTATION: Urinary tract infection. HISTORY OF PRESENT ILLNESS: A very pleasant gentleman who is 81 years old. He was found to be previously in urinary retention. In fact, he currently has an indwelling Cummings catheter. He actually has an abnormal urinalysis. See below on plans. Further history from the chart that I also had a chance to review, he had a prostate biopsy months back with an adenocarcinoma detected. It is [place] 9. That is all here in the chart. In the meantime, he has an indwelling Cummings catheter with an abnormal UA and see the plan below for the infection treatment and recommendations, guidelines etc. PAST MEDICAL AND SURGICAL HISTORY: As follows: He is currently under the care of Dr. Rollins. He also is being seen by Infectious Disease with Dr. Mello Parkinson. MEDICATIONS: See his chart. ALLERGIES: See his chart. PHYSICAL EXAMINATION: GENERAL: A well-nourished male, in no apparent distress. VITAL SIGNS: Within normal limits. He is currently resting comfortably. ABDOMEN: Overall soft. Cummings catheter is in place, draining clear yellow urine. RECTAL: Exam is deferred at this point. LABORATORY DATA: See chart. DIAGNOSES: 1. Prostate cancer. 2. Urinary retention. 3. Voiding dysfunction. 4. Urinary tract infection. PLAN: As follows, a pleasant 81-year-old gentleman. For now, we are going to leave the Cummings catheter. Different options are available. One is regarding the urinary retention, consideration for a TURP should be evaluated. There is other workup that maybe done. We have to discuss those options. Regarding infection, the patient is currently on antibiotics. We will repeat urine cultures. The patient is a possible surgical candidate for TURP versus other options. I discussed with the patient the possibility for a cystostomy tube insertion. Regarding his prostate cancer, there are different options available there as well. It is a [place] 9. Hormonal therapy is an option whether it is with Lupron therapy or actual orchiectomy maybe a very good option for this patient, given his overall general health status and medical condition and his living location (because it is sometimes difficult to give the patient medications, particularly Lupron therapy). We would consider the possibility for starting Casodex and instead of using the 50 mg dose a day, we would use the 150 mg dose a day, but it does not seem to be on a formulary right now. So from Urology standpoint, the plan is as follows, 1. Maintain Flomax. 2. Cummings catheter, straight drainage, and we will give a voiding trial. If the patient fails the voiding trial, we will consider TURP or a suprapubic cystostomy tube and we will consider treatment for the prostate cancer treatment therein. Further plans to follow. Thank you for the Urology consultation. Bebeto Glez MD [facility] # [id number]
--- NOTE | 2017-03-08 20:11 | CP.PCM.PN ---
Subjective - Date & Time of Evaluation Date of Evaluation: 03/08/17 Time of Evaluation: 20:11 - Subjective Subjective: CHIEF COMPLAINTS TODAY : afebrile, s/p Romero REINSERTION BY GIFTY.03/07/17 NO NEW COMPLAINTS F/U NOTED ROS. HEENT : N. Resp : No cough, wheezing ,pleuritic CP ,or hemoptysis Cardio : No anginal CP, PND, orthopnea, palpitation GI : No abd.pain, n/v ,diarrhea or GI bleeding . POLICE CHIEF : No headache, vertigo, focal deficit. Musculoskel : No joint swelling , Derm : No rash Psych : Normal affect. Ext : No swelling ,calf pain PE. Pt. is alert awake in no distress. V.S As noted in the chart Head ,ear nose,throat and eyes : Normal. Neck : Supple with normal carotids. Lungs: Clear air entry. Heart : S1 & S2 normal with S4. No murmur. Abd : Soft non tender with normal bowel sounds. Neuro : Moves all ext. with no localized deficit. Ext : No edema with intact pulses.Non tender calves LT, FOOT IN DRY DRESSING/ MULTIPODUS BOOTS Derm : No rashes or decubitus ulcer. LABS/RADIOLOGY: reviewed. repeat urine culture 03/06/17 -ve growth. urine culture +ve MRSA RENAL FUNCTION STABLE. ASSESSMENT SEPSIS SEC. UTI/CHRONIC Romero +VE MRSA HX . URINARY RETENTION / ? NEUROGENIC BLADDER CA OF PROSTATE. HTN. lEFT FOOT DECUBITUS ULCER-UNSTAGEABLE. /PLAN : CBC /BMP/ LFTS STAT. UA, URINE CULTURE STAT. WILL F/U ON DECISION OF OPTIONS PROVIDED BY GIFTY. CONTINUE iv VANCOMYCIN 1 G ONCE A DAY DAILY.03/03/17 -DAY6 LT FOOT ULCER -DRY. PER PODIATRY. CONTACT PRECAUTIONS. Objective - Vital Signs/Intake and Output Vital Signs (last 24 hours): Temp Pulse Resp BP Pulse Ox 98.1 F 70 20 127/71 99 03/08/17 16:15 03/08/17 16:15 03/08/17 16:15 03/08/17 16:15 03/08/17 16:15 Intake and Output: 03/08/17 03/09/17 18:59 06:59 Intake Total 600 Output Total 800 Balance -200 - Medications Medications: Current Medications Acetaminophen (Tylenol 325mg Tab) 650 mg PO Q6H PRN PRN Reason: Pain, moderate (4-7) Last Admin: 03/06/17 09:34 Dose: 650 mg Enoxaparin Sodium (Lovenox) 30 mg SC DAILY [facility] Last Admin: 03/08/17 09:54 Dose: 30 mg Famotidine (Pepcid) 20 mg PO DAILY [facility] Last Admin: 03/08/17 09:54 Dose: 20 mg Vancomycin HCl 1 gm/ Sodium (Chloride) 250 mls @ 166.7 mls/hr IVPB Q24H [facility] Rosuvastatin Calcium (Crestor) 10 mg PO HS [facility] Last Admin: 03/07/17 23:06 Dose: 10 mg Tamsulosin HCl (Flomax) 0.4 mg PO DAILY [facility] Last Admin: 03/08/17 09:54 Dose: 0.4 mg - Labs Labs: 03/05/17 08:03 03/06/17 16:34 PT 14.6 SECONDS (9.7-12.2) H 03/02/17 21:00 INR 1.3 03/02/17 21:00 APTT 33 SECONDS (21-34) 03/02/17 21:00
--- NOTE | 2017-03-08 20:14 | CARD ---
APPROVED REPORT EKG Measurement Heart [id number] <Conclusion> Sinus tachycardia Otherwise normal ECG
[2017-03-08 20:37] LABS: BASO # 0.1 K/uL (0.0-0.2); BASO % 1.6 % (0.0-2.0); EOS # 0.3 K/uL (0.0-0.7); EOS % 6.6 % (0.0-4.0); HEMOGLOBIN 8.9 g/dL (12.0-18.0); LYMPH # 1.4 K/uL (1.0-4.3); LYMPH % 30.9 % (20.0-40.0); MEAN CELL VOLUME 87.4 fL (80.0-94.0); MEAN CORPUSCULAR HEMOGLOBIN 29.5 pg (27.0-31.0); MEAN CORPUSCULAR HGB CONC 33.8 g/dL (33.0-37.0); MEAN PLATELET VOLUME 7.1 fL (7.2-11.7); MONO # 0.3 K/uL (0.0-0.8); MONO % 6.2 % (0.0-10.0); NEUT # 2.5 K/uL (1.8-7.0); NEUT % 54.7 % (50.0-75.0); NRBC % 0.1 % (0.0-2.0); RBC 3.03 Mil/uL (4.40-5.90); RED CELL DISTRIBUTION WIDTH 16.2 % (11.5-14.5); WHITE BLOOD COUNT 4.7 K/uL (4.8-10.8)
[2017-03-08 20:56] LABS: ALB/GLOB RATIO 0.8 (1.0-2.1); ALT/SGPT 21 U/L (21-72); AST/SGOT 19 U/L (17-59); BILIRUBIN,DIRECT 0.2 mg/dL (0.0-0.4); BLOOD UREA NITROGEN 9 mg/dL (9-20); CALCIUM 6.8 mg/dl (8.6-10.4); GFR AFRICAN-AMERICAN > 60; GFR NON-AFRICAN AMERICAN > 60
--- NOTE | 2017-03-08 21:31 | CP.PCM.PN ---
Subjective - Date & Time of Evaluation Date of Evaluation: 03/08/17 Time of Evaluation: 21:00 - Subjective Subjective: Pt is for TURp tomorow morning and he is also getting hormone replacement therapy for Ca prostrate, pt is afberile, on medical managment, NAD Objective - Vital Signs/Intake and Output Vital Signs (last 24 hours): Temp Pulse Resp BP Pulse Ox 98.1 F 70 20 127/71 99 03/08/17 16:15 03/08/17 16:15 03/08/17 16:15 03/08/17 16:15 03/08/17 16:15 Intake and Output: 03/08/17 03/09/17 18:59 06:59 Intake Total 600 Output Total 800 Balance -200 - Medications Medications: Current Medications Acetaminophen (Tylenol 325mg Tab) 650 mg PO Q6H PRN PRN Reason: Pain, moderate (4-7) Last Admin: 03/06/17 09:34 Dose: 650 mg Enoxaparin Sodium (Lovenox) 30 mg SC DAILY [facility] Last Admin: 03/08/17 09:54 Dose: 30 mg Famotidine (Pepcid) 20 mg PO DAILY [facility] Last Admin: 03/08/17 09:54 Dose: 20 mg Vancomycin HCl 1 gm/ Sodium (Chloride) 200 mls @ 166.7 mls/hr IVPB Q24H [facility] Rosuvastatin Calcium (Crestor) 10 mg PO HS [facility] Last Admin: 03/07/17 23:06 Dose: 10 mg Tamsulosin HCl (Flomax) 0.4 mg PO DAILY [facility] Last Admin: 03/08/17 09:54 Dose: 0.4 mg - Labs Labs: 03/08/17 20:28 03/08/17 20:28 PT 14.6 SECONDS (9.7-12.2) H 03/02/17 21:00 INR 1.3 03/02/17 21:00 APTT 33 SECONDS (21-34) 03/02/17 21:00 - Constitutional Appears: No Acute Distress, Chronically Ill - Eye Exam Eye Exam: EOMI, Normal appearance, PERRL Pupil Exam: NORMAL ACCOMODATION, PERRL - Respiratory Exam Respiratory Exam: Clear to Ausculation Bilateral, NORMAL BREATHING PATTERN - Cardiovascular Exam Cardiovascular Exam: REGULAR RHYTHM, +S1, +S2. absent: Murmur - GI/Abdominal Exam GI & Abdominal Exam: Soft, Normal Bowel Sounds. absent: Tenderness Assessment and Plan (1) CA prostate, adenoca Status: Acute (2) Sepsis Status: Acute (3) UTI (urinary tract infection) Status: Acute (4) Acute urinary retention Status: Acute (5) CAD (coronary artery disease) Status: Acute
[2017-03-08] MEDS: Vancomycin 1 GM in Sodium Chloride 0.9% 200 ML IVPB SCH (21:46)
[2017-03-08 22:22] LABS: URINE BACTERIA RARE (<OCC); URINE BILIRUBIN NEGATIVE (NEGATIVE); URINE BLOOD NEGATIVE (NEGATIVE); URINE CLARITY Clear (Clear); URINE COLOR Straw (YELLOW); URINE GLUCOSE (UA) NORMAL (Normal); URINE LEUKOCYTE ESTERASE NEG Leu/uL (Negative); URINE NITRATE NEGATIVE (NEGATIVE); URINE PROTEIN NEGATIVE (NEGATIVE); URINE UROBILINOGEN NORMAL mg/dL (0.2-1.0)
--- NOTE | 2017-03-08 22:45 | OP ---
PROCEDURE DATE: 03/06/2017 UROLOGY PROCEDURE NOTE PROCEDURE: Insertion of Cummings catheter at the bedside. INDICATIONS: See the history and physical for the details, see the consultation. This is a very pleasant gentleman who previously had a prostate biopsy with an adenocarcinoma of the prostate with a [place] 9. He also has urine retention. He has positive urine culture, MRSA. He has been seen by Infectious Disease. We gave the patient a voiding trial on Tuesday and we are monitoring the patient; however, he does not seem to be voiding well. He is voiding small volumes. Subsequently, we did two bladder ultrasounds, the first one showed a 300 mL volume and the next one shows an 800 mL volume that was first on Tuesday and then Tuesday. I spoke to the nurse as she was not able to insert a Cummings catheter, so now at the bedside today, we are inserting a Cummings catheter. Under sterile technique, I inserted a Cummings catheter. I explained to the patient what we were doing. We got at least 500 mL of urine almost immediately. The patient tolerated the procedure without complications. See the progress note as well. PLAN: Plan is to Cummings to straight drainage him. We will discuss further options. Bebeto Glez MD
[2017-03-09] MEDS ORDERED: Sodium Chloride 0.9% 1,000 ML IV SCH (08:00)
[2017-03-09] MEDS: Enoxaparin 30 mg Syringe SC SCH (09:20)
--- NOTE | 2017-03-09 11:16 | CP.PCM.PN ---
Subjective - Date & Time of Evaluation Date of Evaluation: 03/09/17 Time of Evaluation: 11:14 - Subjective Subjective: Podiatry note for Dr. Celeste 81 yo male patient was seen at bedside this morning concerning unstageable decubitus ulceration to Left foot. Patient is resting comfortably in bed, AAO x 3 and NAD. Denies any acute overnight events or new onset pain. Multipodus boots are noted to be in place at time of visit. Patietn denies N/V/F/C or SOB today Objective - Vital Signs/Intake and Output Vital Signs (last 24 hours): Temp Pulse Resp BP Pulse Ox 98.1 F 90 18 113/61 99 03/09/17 08:00 03/09/17 08:00 03/09/17 08:00 03/09/17 08:00 03/09/17 08:00 Intake and Output: 03/09/17 03/09/17 06:59 18:59 Intake Total 1100 0 Output Total 700 1400 Balance 400 -1400 - Medications Medications: Current Medications Acetaminophen (Tylenol 325mg Tab) 650 mg PO Q6H PRN PRN Reason: Pain, moderate (4-7) Last Admin: 03/06/17 09:34 Dose: 650 mg Enoxaparin Sodium (Lovenox) 30 mg SC DAILY [facility] Last Admin: 03/09/17 09:20 Dose: Not Given Famotidine (Pepcid) 20 mg PO DAILY [facility] Last Admin: 03/09/17 09:20 Dose: 20 mg Vancomycin HCl 1 gm/ Sodium (Chloride) 200 mls @ 166.7 mls/hr IVPB Q24H [facility] Last Admin: 03/08/17 21:46 Dose: Not Given Sodium Chloride (Sodium Chloride 0.9%) 1,000 mls @ 75 mls/hr IV .[id number] [facility] Last Admin: 03/09/17 08:14 Dose: 75 mls/hr Rosuvastatin Calcium (Crestor) 10 mg PO HS [facility] Last Admin: 03/08/17 21:47 Dose: 10 mg Tamsulosin HCl (Flomax) 0.4 mg PO DAILY [facility] Last Admin: 03/09/17 09:20 Dose: 0.4 mg - Labs Labs: 03/08/17 20:28 03/08/17 20:28 PT 14.6 SECONDS (9.7-12.2) H 12/27/17 21:00 INR 1.3 03/02/17 21:00 APTT 33 SECONDS (21-34) 03/02/17 21:00 - Constitutional Appears: Well, Non-toxic, No Acute Distress - Extremities Exam Additional comments: Bilateral lower extremity exam DERM: Mycotic toenails noted x10 bilaterally. LEFT: Unstageable decubitus ulceration to Left heel measuring 5cm x 4cm with no drainage. No PTB, no fluctuance. No mal-odor noted. No sign of acute infection is noted. No interdigital maceration noted. Another unstabeagle ulceration noted to lateral aspect of LEFT 5th metatarsal head measuring 1.5cmx 1.5cm with dried eschar overlaying. No PTB, no drainage, no mal-odor noted. No fluctuance. RIGHT: No open wounds noted. No PTB. No mal-odor noted. No sign of acute infection is noted. No interdigital maceration noted. VASC: Non-palpable DP and PT noted bilaterally. MUCK HAULER <3 sec to all digits bilaterally. ORTHO: Pain on palpation to left heel at the site of ulceration. No pain induced on palpation to left foot 5th metatarsal head NEURO: Gross sensation intact. Tested with [place] Mckenzie Monofilament to plantar feet at multiple points. - Neurological Exam Neurological Exam: Alert, Awake, Oriented x3 - Psychiatric Exam Psychiatric exam: Normal Affect, Normal Mood - Skin Skin Exam: Normal Color, Warm Assessment and Plan - Assessment and Plan (Free Text) Assessment: 81 yo male patient presents with unstageable decubitus ulceration to Left foot. Plan: Patient seen and evaluated at bedside with attending Dr. Celeste Labs and Vitals reviewed; Afebrile, WBC 4.7 Bonescan right foot ordered L foot xray 03/04/17: No evidence of OM L foot dressed with betadine soaked gauze, DSD, multipodus boots Continue multipodus boots No surgical intervention planned at this time Patient stable from podiatric standpoint Podiatry will continue to follow while patient in house
[2017-03-09 11:24] LABS: BLOOD UREA NITROGEN 6 mg/dL (9-20); CALCIUM 6.7 mg/dl (8.6-10.4); GFR AFRICAN-AMERICAN > 60; GFR NON-AFRICAN AMERICAN > 60
--- NOTE | 2017-03-09 19:53 | CP.PCM.PN ---
Subjective - Date & Time of Evaluation Date of Evaluation: 03/09/17 Time of Evaluation: 19:53 - Subjective Subjective: CHIEF COMPLAINTS TODAY : afebrile, s/p Romero REINSERTION BY .03/07/17 NO NEW COMPLAINTS F/U NOTED ROS. HEENT : N. Resp : No cough, wheezing ,pleuritic CP ,or hemoptysis Cardio : No anginal CP, PND, orthopnea, palpitation GI : No abd.pain, n/v ,diarrhea or GI bleeding . [employer] : No headache, vertigo, focal deficit. Musculoskel : No joint swelling , Derm : No rash Psych : Normal affect. Ext : No swelling ,calf pain PE. Pt. is alert awake in no distress. V.S As noted in the chart Head ,ear nose,throat and eyes : Normal. Neck : Supple with normal carotids. Lungs: Clear air entry. Heart : S1 & S2 normal with S4. No murmur. Abd : Soft non tender with normal bowel sounds. Neuro : Moves all ext. with no localized deficit. Ext : No edema with intact pulses.Non tender calves LT, FOOT IN DRY DRESSING/ MULTIPODUS BOOTS Derm : No rashes or decubitus ulcer. LABS/RADIOLOGY: reviewed. repeat urine culture 03/06/17 -ve growth. urine culture +ve MRSA RENAL FUNCTION STABLE. ASSESSMENT SEPSIS SEC. UTI/CHRONIC Romero +VE MRSA HX . URINARY RETENTION / ? NEUROGENIC BLADDER CA OF PROSTATE. HTN. lEFT FOOT DECUBITUS ULCER-UNSTAGEABLE. /PLAN : UA, URINE CULTURE - CONTINUE iv VANCOMYCIN 1 G ONCE A DAY DAILY.03/03/17 -DAY 7 LT FOOT ULCER -DRY. PER PODIATRY. CONTACT PRECAUTIONS. Objective - Vital Signs/Intake and Output Vital Signs (last 24 hours): Temp Pulse Resp BP Pulse Ox 97.9 F 88 20 125/70 98 03/09/17 16:15 03/09/17 16:15 03/09/17 16:15 03/09/17 16:15 03/09/17 16:15 Intake and Output: 03/09/17 03/10/17 18:59 06:59 Intake Total 700 Output Total 1400 Balance -700 - Medications Medications: Current Medications Acetaminophen (Tylenol 325mg Tab) 650 mg PO Q6H PRN PRN Reason: Pain, moderate (4-7) Last Admin: 03/06/17 09:34 Dose: 650 mg Enoxaparin Sodium (Lovenox) 30 mg SC DAILY [facility] Last Admin: 03/09/17 09:20 Dose: Not Given Famotidine (Pepcid) 20 mg PO DAILY [facility] Last Admin: 03/09/17 09:20 Dose: 20 mg Vancomycin HCl 1 gm/ Sodium (Chloride) 200 mls @ 166.7 mls/hr IVPB Q24H [facility] Last Admin: 03/08/17 21:46 Dose: Not Given Rosuvastatin Calcium (Crestor) 10 mg PO HS [facility] Last Admin: 03/08/17 21:47 Dose: 10 mg Tamsulosin HCl (Flomax) 0.4 mg PO DAILY [facility] Last Admin: 03/09/17 09:20 Dose: 0.4 mg - Labs Labs: 03/08/17 20:28 03/09/17 10:50 PT 14.6 SECONDS (9.7-12.2) H 03/02/17 21:00 INR 1.3 03/02/17 21:00 APTT 33 SECONDS (21-34) 03/02/17 21:00
[2017-03-09] MEDS: Vancomycin 1 GM in Sodium Chloride 0.9% 200 ML IVPB SCH (21:17)
--- NOTE | 2017-03-09 22:49 | PCM.URO ---
Urology Progress Note - General General: Tolerating Diet - Subjective Abdominal Pain: No Flank Pain: No Nausea: No Vomiting: No Voiding Well: No (catheter in place) Hematuria: No Stone Passed: No Dsypnea: No Chest Pain: No Fever & Chills: No - Objective Lab Studies: Reviewed (Bone scan 09/2016 - no metastatic disease) Lab Results Last 24 Hours: Laboratory Results - last 24 hr 03/08/17 03/09/17 17:19 10:50 Sodium 126 L Potassium 3.8 Chloride 101 Carbon Dioxide 22 Anion Gap 7 L BUN 6 L Creatinine 0.4 L Est GFR ( Amer) > 60 Est GFR (Non-Af Amer) > 60 Random Glucose 71 L Calcium 6.7 L Blood Type O POSITIVE Antibody Screen Negative Intake & Output: Intake & Output 03/09/17 03/09/17 03/10/17 06:59 18:59 06:59 Intake Total 1100 1500 Output Total 700 1400 Balance 400 100 Intake: Intake, IV Amount 800 850 Right Hand 800 850 Oral 300 650 Output: Urine 700 1400 Urethral ([place]umm[place]) 700 1400 Other: # Bowel Movements 0 Vital Signs: Vital Signs - 24 hr 03/08/17 03/09/17 03/09/17 23:18 08:00 13:30 Temperature 98.2 F 98.1 F Pulse Rate 91 H 90 88 Respiratory 20 18 Rate Blood Pressure 146/78 113/61 115/70 O2 Sat by Pulse 99 99 98 Oximetry 03/09/17 03/09/17 14:57 16:15 Temperature 97.5 F L 97.9 F Pulse Rate 104 H 88 Respiratory 20 20 Rate Blood Pressure 111/58 L 125/70 O2 Sat by Pulse 96 98 Oximetry - Physical Exam Abdominal Exam: Soft, Non-Tender, Non-Distended Back: No CVA Tenderness Genitalia: Without Inflammation Urinary Catheter Draining Well: Yes Urine Color: Clear, Yellow - Male Phallus: Normal Scrotum: Normal - Plan Catheter Care: Yes Intake & Output: Yes See Orders: Yes Additional Information: Imp: urinary retnetion. uti. prostate carcinoma. Note: pt was scheduled for TURP today. Surgery was postponed, as per anesthesiologist, due to pt's hyponatremia. I discussed further with pt re TURP and re poss orchiectomy. PSA ordered. YS - Date & Time of Note Date: 03/09/17 Time: 13:45
--- NOTE | 2017-03-09 23:57 | CP.PCM.PN ---
Subjective - Date & Time of Evaluation Date of Evaluation: 03/09/17 Time of Evaluation: 20:00 - Subjective Subjective: Pt seen and evalauted, is for nephrology eval, his Na was low and thats why OR ( TURP) on hold, pt is afebrile, no SOB, no CP, Objective - Vital Signs/Intake and Output Vital Signs (last 24 hours): Temp Pulse Resp BP Pulse Ox 97.9 F 88 20 125/70 98 03/09/17 16:15 03/09/17 16:15 03/09/17 16:15 03/09/17 16:15 03/09/17 16:15 Intake and Output: 03/09/17 03/10/17 18:59 06:59 Intake Total 1500 Output Total 1400 Balance 100 - Medications Medications: Current Medications Acetaminophen (Tylenol 325mg Tab) 650 mg PO Q6H PRN PRN Reason: Pain, moderate (4-7) Last Admin: 03/06/17 09:34 Dose: 650 mg Enoxaparin Sodium (Lovenox) 30 mg SC DAILY [facility] Last Admin: 03/09/17 09:20 Dose: Not Given Famotidine (Pepcid) 20 mg PO DAILY [facility] Last Admin: 03/09/17 09:20 Dose: 20 mg Vancomycin HCl 1 gm/ Sodium (Chloride) 200 mls @ 166.7 mls/hr IVPB Q24H [facility] Last Admin: 03/09/17 21:17 Dose: 166.7 mls/hr Rosuvastatin Calcium (Crestor) 10 mg PO HS [facility] Last Admin: 03/09/17 21:17 Dose: 10 mg Tamsulosin HCl (Flomax) 0.4 mg PO DAILY [facility] Last Admin: 03/09/17 09:20 Dose: 0.4 mg - Labs Labs: 03/08/17 20:28 03/09/17 10:50 PT 14.6 SECONDS (9.7-12.2) H 03/02/17 21:00 INR 1.3 03/02/17 21:00 APTT 33 SECONDS (21-34) 03/02/17 21:00 - Constitutional Appears: No Acute Distress - Head Exam Head Exam: ATRAUMATIC, NORMAL INSPECTION, NORMOCEPHALIC - Eye Exam Eye Exam: EOMI, Normal appearance, PERRL Pupil Exam: NORMAL ACCOMODATION, PERRL - Respiratory Exam Respiratory Exam: Clear to Ausculation Bilateral, NORMAL BREATHING PATTERN - Cardiovascular Exam Cardiovascular Exam: REGULAR RHYTHM, +S1, +S2. absent: Murmur - GI/Abdominal Exam GI & Abdominal Exam: Soft, Normal Bowel Sounds. absent: Tenderness Assessment and Plan (1) CA prostate, adenoca Assessment & Plan: pt agfreed for orchoecteomy, once na is corrected pt is for OR Status: Acute (2) Sepsis Status: Acute (3) UTI (urinary tract infection) Status: Acute (4) Acute urinary retention Status: Acute (5) CAD (coronary artery disease) Status: Acute (6) Hyponatremia Assessment & Plan: Na replacement Status: Acute
[2017-03-10] MEDS: Enoxaparin 30 mg Syringe SC SCH (10:59)
--- NOTE | 2017-03-10 14:29 | CP.PCM.PN ---
Subjective - Date & Time of Evaluation Date of Evaluation: 03/10/17 Time of Evaluation: 10:25 - Subjective Subjective: Podiatry note for Dr. Celeste 81 yo male patient was seen at bedside this morning concerning unstageable decubitus ulceration to Left foot. AAO x 3 and NAD. Patient denies any acute overnight events or new onset pain. Multipodus boots are noted to be in place at time of visit. Patietn denies N/V/F/C or SOB today Objective - Vital Signs/Intake and Output Vital Signs (last 24 hours): Temp Pulse Resp BP Pulse Ox 97.9 F 88 20 134/73 88 L 03/10/17 08:18 03/10/17 08:18 03/10/17 08:18 03/10/17 08:18 03/10/17 08:18 Intake and Output: 03/10/17 03/10/17 06:59 18:59 Output Total 800 Balance -800 - Medications Medications: Current Medications Acetaminophen (Tylenol 325mg Tab) 650 mg PO Q6H PRN PRN Reason: Pain, moderate (4-7) Last Admin: 03/06/17 09:34 Dose: 650 mg Famotidine (Pepcid) 20 mg PO DAILY [facility] Last Admin: 03/10/17 10:59 Dose: 20 mg Vancomycin HCl 1 gm/ Sodium (Chloride) 200 mls @ 166.7 mls/hr IVPB Q24H [facility] Last Admin: 03/09/17 21:17 Dose: 166.7 mls/hr Rosuvastatin Calcium (Crestor) 10 mg PO HS [facility] Last Admin: 03/09/17 21:17 Dose: 10 mg Tamsulosin HCl (Flomax) 0.4 mg PO DAILY [facility] Last Admin: 03/10/17 10:59 Dose: 0.4 mg - Labs Labs: 03/08/17 20:28 03/09/17 10:50 PT 14.6 SECONDS (9.7-12.2) H 03/02/17 21:00 INR 1.3 03/02/17 21:00 APTT 33 SECONDS (21-34) 03/02/17 21:00 - Constitutional Appears: Well, Non-toxic, No Acute Distress - Head Exam Head Exam: ATRAUMATIC - Extremities Exam Additional comments: Bilateral lower extremity exam DERM: Mycotic toenails noted x10 bilaterally. LEFT: Unstageable decubitus ulceration to Left heel measuring 5cm x 4cm with no drainage. No PTB, no fluctuance. No mal-odor noted. No sign of acute infection is noted. No interdigital maceration noted. Another unstabeagle ulceration noted to lateral aspect of LEFT 5th metatarsal head measuring 1.5cmx 1.5cm with dried eschar overlaying. No PTB, no drainage, no mal-odor noted. No fluctuance. RIGHT: No open wounds noted. No PTB. No mal-odor noted. No sign of acute infection is noted. No interdigital maceration noted. VASC: Non-palpable DP and PT noted bilaterally. WRAPPING CHECKER <3 sec to all digits bilaterally. ORTHO: Pain on palpation to left heel at the site of ulceration. No pain induced on palpation to left foot 5th metatarsal head NEURO: Gross sensation intact. Tested with [place] Mckenzie Monofilament to plantar feet at multiple points. - Neurological Exam Neurological Exam: Alert, Awake, Oriented x3 - Psychiatric Exam Psychiatric exam: Normal Affect, Normal Mood - Skin Skin Exam: Normal Color Assessment and Plan - Assessment and Plan (Free Text) Assessment: 81 yo male patient presents with unstageable decubitus ulceration to Left foot. Plan: Patient seen and evaluated at bedside with attending Dr. Celeste Labs and Vitals reviewed; Afebrile Bonescan LEFT foot still pending L foot xray 03/04/17: No evidence of OM L foot dressed with betadine soaked gauze, DSD, multipodus boots Continue multipodus boots No surgical intervention planned at this time Patient stable from podiatric standpoint Podiatry will continue to follow while patient in house
[2017-03-10 19:46] LABS: ALB/GLOB RATIO 0.8 (1.0-2.1); ALBUMIN 2.3 g/dL (3.5-5.0); ALT/SGPT 21 U/L (21-72); AST/SGOT 69 U/L (17-59); BLOOD UREA NITROGEN 8 mg/dL (9-20); CALCIUM 7.6 mg/dl (8.6-10.4); GFR AFRICAN-AMERICAN > 60; GFR NON-AFRICAN AMERICAN > 60; URIC ACID 2.9 mg/dL (3.5-8.5)
[2017-03-10] MEDS: Vancomycin 1 GM in Sodium Chloride 0.9% 200 ML IVPB SCH (21:44)
--- NOTE | 2017-03-10 23:12 | CP.PCM.PN ---
Subjective - Date & Time of Evaluation Date of Evaluation: 03/10/17 Time of Evaluation: 20:00 - Subjective Subjective: Pt is seen and evalauted, pt is also being followed by urology, is on fluid restriction Objective - Vital Signs/Intake and Output Vital Signs (last 24 hours): Temp Pulse Resp BP Pulse Ox 97.5 F L 95 H 20 131/69 98 03/10/17 16:58 03/10/17 16:58 03/10/17 16:58 03/10/17 16:58 03/10/17 16:58 Intake and Output: 03/10/17 03/11/17 18:59 06:59 Intake Total 550 Balance 550 - Medications Medications: Current Medications Acetaminophen (Tylenol 325mg Tab) 650 mg PO Q6H PRN PRN Reason: Pain, moderate (4-7) Last Admin: 03/06/17 09:34 Dose: 650 mg Famotidine (Pepcid) 20 mg PO DAILY [facility] Last Admin: 03/10/17 10:59 Dose: 20 mg Vancomycin HCl 1 gm/ Sodium (Chloride) 200 mls @ 166.7 mls/hr IVPB Q24H [facility] Last Admin: 03/10/17 21:44 Dose: 166.7 mls/hr Rosuvastatin Calcium (Crestor) 10 mg PO HS [facility] Last Admin: 03/10/17 21:44 Dose: 10 mg Tamsulosin HCl (Flomax) 0.4 mg PO DAILY [facility] Last Admin: 03/10/17 10:59 Dose: 0.4 mg - Labs Labs: 03/08/17 20:28 03/10/17 19:27 PT 14.6 SECONDS (9.7-12.2) H 03/02/17 21:00 INR 1.3 03/02/17 21:00 APTT 33 SECONDS (21-34) 03/02/17 21:00 - Constitutional Appears: No Acute Distress - Head Exam Head Exam: ATRAUMATIC, NORMAL INSPECTION, NORMOCEPHALIC - Eye Exam Eye Exam: EOMI, Normal appearance, PERRL Pupil Exam: NORMAL ACCOMODATION, PERRL - Respiratory Exam Respiratory Exam: Clear to Ausculation Bilateral, NORMAL BREATHING PATTERN - Cardiovascular Exam Cardiovascular Exam: REGULAR RHYTHM, +S1, +S2. absent: Murmur - GI/Abdominal Exam GI & Abdominal Exam: Soft, Normal Bowel Sounds. absent: Tenderness Assessment and Plan (1) CA prostate, adenoca Status: Acute (2) Sepsis Status: Acute (3) UTI (urinary tract infection) Status: Acute (4) Acute urinary retention Status: Acute (5) CAD (coronary artery disease) Status: Acute (6) Hyponatremia Status: Acute
--- NOTE | 2017-03-11 11:03 | NM ---
PROCEDURE: Ceretec labeled white blood cell study HISTORY: Left foot. r/o left foot osteomyelitis COMPARISON: 09/13/2016 bone scan. 03/04/2017 left foot radiographs. TECHNIQUE: 12.1 mCi technetium 99 M Ceretec labeled white blood cells administered intravenously. Per institutional protocol imaging performed at 3 and 24 hours. FINDINGS: No Ceretec avid osseous or articular abnormalities identified lower extremities. Particular attention directed to the left lower extremity. Incidental finding(s): Vague increased accumulation of radionuclide in the left lower extremity which appears qualitatively to be mildly edematous. IMPRESSION: Negative study for acute osseous or articular abnormality.
--- NOTE | 2017-03-11 13:32 | CP.PCM.CON ---
History of Present Illness - History of Present Illness History of Present Illness: 81 yo male patient with PMHx of HTN, Hyperlipidemia, carotid stenosis, UTI, hyponatremia, etoh abuse and COPD was seen at bedside today after request for podiatry consultation concerning unstageable decubitus ulceration to Left foot. Patient states that he does not recall when the ulceration started, but admits that it had been there for a couple of months. Patient admits to mild pain on palpation to Left heel at the site of ulceration. Patient denies of any trauma to the ulceration area Left foot. Patient denies of any other pedal complains. Patient denies of any N/V/F/C or SOB today Has h/o prostate CA Hospital course remarkable for treatment on non-healing foot ulcer. Has been on fluid restriction for hyponatremia. Na levels have remained low, < 130 parameters consistent with SIADH Review of Systems - Constitutional Constitutional: Fatigue, Lethargy - EENT Eyes: absent: As Per HPI, Blind Spots, Blurred Vision, Change in Vision, Decreased Night Vision, Diplopia, Discharge, Dry Eye, Exophthalmos, Floaters, Irritation, Itchy Eyes, Loss of Peripheral Vision, Pain, Photophobia, Requires Corrective Lenses, Sees Flashes, Spots in Vision, Tunnel Vision, Other Visual Disturbances, Loss of Vision, Other Ears: absent: As Per HPI, Decreased Hearing, Ear Discharge, Ear Pain, Tinnitus, Abnormal Hearing, Disequilibrium, Dizziness, Other Nose/Mouth/Throat: absent: As Per HPI, Epistaxis, Nasal Congestion, Nasal Discharge, Nasal Obstruction, Nasal Trauma, Nose Pain, Post Nasal Drip, Sinus Pain, Sinus Pressure, Bleeding Gums, Change in Voice, Dental Pain, Dry Mouth, Dysphagia, Halitosis, Hoarsness, Lip Swelling, Mouth Lesions, Mouth Pain, Odynophagia, Sore Throat, Throat Swelling, Tongue Swelling, Facial Pain, Neck Pain, Neck Mass, Other - Cardiovascular Cardiovascular: Dyspnea on Exertion - Respiratory Respiratory: Cough - Genitourinary Genitourinary: Urinary Urgency - Musculoskeletal Musculoskeletal: Muscle Cramps, Muscle Weakness - Integumentary Integumentary: Skin Ulcer, Wounds - Neurological Neurological: Confusion Past Patient History - Infectious Disease Hx of Infectious Diseases: None - Past Medical History & Family History Past Medical History?: No - Past Social History Smoking Status: Light Smoker < 10 Cigarettes Daily Chewing Tobacco Use: No Cigar Use: No Alcohol: None Drugs: Denies Home Situation {Lives}: Group Home - CARDIAC Hx Hypertension: Yes - PULMONARY Hx Chronic Obstructive Pulmonary Disease (COPD): Yes - NEUROLOGICAL HX Cerebrovascular Accident: Yes (7 YEARS AGO) - HEENT Hx HEENT Problems: No - RENAL Hx Chronic Kidney Disease: No - ENDOCRINE/METABOLIC Hx Endocrine Disorders: No - HEMATOLOGICAL/ONCOLOGICAL Hx Blood Disorders: No Hx Blood Transfusions: Yes Hx Blood Transfusion Reaction: No - INTEGUMENTARY Hx Dermatological Problems: No - MUSCULOSKELETAL/RHEUMATOLOGICAL Hx Falls: Yes - GASTROINTESTINAL Hx Gastrointestinal Disorders: No - GENITOURINARY/GYNECOLOGICAL Hx Genitourinary Disorders: Yes Hx Prostate Cancer: Yes Other/Comment: uropathy, UTI - PSYCHIATRIC Hx Substance Use: No - SURGICAL HISTORY Hx Surgeries: No Hx Cardiac Catheterization: Yes (x2) Other/Comment: hx of prostate biopsy 11/2016. lt.hip surgery w/pins - ANESTHESIA Hx Anesthesia: Yes Hx Anesthesia Reactions: No Hx Malignant Hyperthermia: No Meds Allergies/Adverse Reactions: Allergies Allergy/AdvReac Type Severity Reaction Status Date / Time No Known Allergies Allergy Verified 12/30/16 11:26 - Medications Medications: Current Medications Acetaminophen (Tylenol 325mg Tab) 650 mg PO Q6H PRN PRN Reason: Pain, moderate (4-7) Last Admin: 03/06/17 09:34 Dose: 650 mg Famotidine (Pepcid) 20 mg PO DAILY [facility] Last Admin: 03/11/17 10:39 Dose: 20 mg Vancomycin HCl 1 gm/ Sodium (Chloride) 200 mls @ 166.7 mls/hr IVPB Q24H [facility] Last Admin: 03/10/17 21:44 Dose: 166.7 mls/hr Rosuvastatin Calcium (Crestor) 10 mg PO HS [facility] Last Admin: 03/10/17 21:44 Dose: 10 mg Tamsulosin HCl (Flomax) 0.4 mg PO DAILY [facility] Last Admin: 03/11/17 10:39 Dose: 0.4 mg Physical Exam - Constitutional Appears: Non-toxic, Toxic - Head Exam Head Exam: ATRAUMATIC, NORMAL INSPECTION - Eye Exam Eye Exam: EOMI. absent: Normal appearance - Neck Exam Neck exam: Positive for: Normal Inspection. Negative for: Tenderness - Respiratory Exam Respiratory Exam: Clear to Auscultation Bilateral, NORMAL BREATHING PATTERN - Cardiovascular Exam Cardiovascular Exam: REGULAR RHYTHM, +S1 - Extremities Exam Extremities exam: Positive for: normal inspection, tenderness - Neurological Exam Neurological exam: Alert, CN II-XII Intact - Skin Skin Exam: Dry, Warm Results - Vital Signs Recent Vital Signs: Last Vital Signs Temp 97.4 F L 03/11/17 08:51 Pulse 92 H 03/11/17 08:51 Resp 20 03/11/17 08:51 BP 133/73 03/11/17 08:51 Pulse Ox 98 03/11/17 08:51 - Labs Result Diagrams: 03/08/17 20:28 03/10/17 19:27 Labs: Laboratory Results - last 24 hr 03/10/17 03/10/17 16:56 19:27 Sodium 126 L Potassium 4.5 Chloride 102 Carbon Dioxide 17 L Anion Gap 12 BUN 8 L Creatinine 0.4 L Est GFR ( Amer) > 60 Est GFR (Non-Af Amer) > 60 Random Glucose 57 L Uric Acid 2.9 L Calcium 7.6 L Total Bilirubin 0.5 AST 69 H D ALT 21 Alkaline Phosphatase 48 Total Protein 5.2 L Albumin 2.3 L Globulin 2.9 Albumin/Globulin Ratio 0.8 L Urine Osmolality 468 Ur Random Sodium 164 Ur Random Uric Acid 29.3 Assessment & Plan (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
--- NOTE | 2017-03-11 13:38 | CP.PCM.PN ---
Subjective - Date & Time of Evaluation Date of Evaluation: 03/11/17 Time of Evaluation: 11:35 - Subjective Subjective: Podiatry note for Dr. Celeste 81 yo male patient was seen at bedside this AM concerning Left foot unstageable decubitus ulceration. AAO x 3 and NAD. Patient denies any acute overnight events. Multipodus boots are noted to be in place at time of visit. Patient denies N/V/F/C or SOB today Objective - Vital Signs/Intake and Output Vital Signs (last 24 hours): Temp Pulse Resp BP Pulse Ox 97.4 F L 92 H 20 133/73 98 03/11/17 08:51 03/11/17 08:51 03/11/17 08:51 03/11/17 08:51 03/11/17 08:51 - Medications Medications: Current Medications Acetaminophen (Tylenol 325mg Tab) 650 mg PO Q6H PRN PRN Reason: Pain, moderate (4-7) Last Admin: 03/06/17 09:34 Dose: 650 mg Famotidine (Pepcid) 20 mg PO DAILY [facility] Last Admin: 03/11/17 10:39 Dose: 20 mg Vancomycin HCl 1 gm/ Sodium (Chloride) 200 mls @ 166.7 mls/hr IVPB Q24H [facility] Last Admin: 03/10/17 21:44 Dose: 166.7 mls/hr Rosuvastatin Calcium (Crestor) 10 mg PO HS [facility] Last Admin: 03/10/17 21:44 Dose: 10 mg Tamsulosin HCl (Flomax) 0.4 mg PO DAILY [facility] Last Admin: 03/11/17 10:39 Dose: 0.4 mg - Labs Labs: 03/08/17 20:28 03/10/17 19:27 PT 14.6 SECONDS (9.7-12.2) H 03/02/17 21:00 INR 1.3 03/02/17 21:00 APTT 33 SECONDS (21-34) 03/02/17 21:00 - Constitutional Appears: Well, Non-toxic, No Acute Distress - Extremities Exam Additional comments: Bilateral lower extremity exam DERM: Mycotic toenails noted x10 bilaterally. LEFT: Unstageable decubitus ulceration to Left heel measuring 5cm x 4cm with no drainage. No PTB, no fluctuance. No mal-odor noted. No sign of acute infection is noted. No interdigital maceration noted. Another unstabeagle ulceration noted to lateral aspect of LEFT 5th metatarsal head measuring 1.5cmx 1.5cm with dried eschar overlaying. No PTB, no drainage, no mal-odor noted. No fluctuance. RIGHT: No open wounds noted. No PTB. No mal-odor noted. No sign of acute infection is noted. No interdigital maceration noted. VASC: Non-palpable DP and PT noted bilaterally. MASTER CHEF <3 sec to all digits bilaterally. ORTHO: Pain on palpation to left heel at the site of ulceration. No pain induced on palpation to left foot 5th metatarsal head NEURO: Gross sensation intact. Tested with [place] Mckenzie Monofilament to plantar feet at multiple points. - Neurological Exam Neurological Exam: Alert, Awake - Psychiatric Exam Psychiatric exam: Normal Affect, Normal Mood - Skin Skin Exam: Normal Color, Warm Assessment and Plan - Assessment and Plan (Free Text) Assessment: 81 yo male patient presents with unstageable decubitus ulceration to Left guru Plan: Patient seen and evaluated at bedside with attending Dr. Celeste Labs and Vitals reviewed; Afebrile Bonescan LEFT foot (-) for OM L foot xray 03/04/17: No evidence of OM L foot dressed with betadine soaked gauze, DSD, multipodus boots Continue multipodus boots No surgical intervention planned at this time Patient stable from podiatric standpoint Podiatry will continue to follow while patient in house
[2017-03-11] MEDS ORDERED: Tolvaptan 15 MG TAB PO ONE (13:42)
[2017-03-11 17:10] LABS: BASO # 0.1 K/uL (0.0-0.2); BASO % 1.5 % (0.0-2.0); EOS # 0.3 K/uL (0.0-0.7); EOS % 6.8 % (0.0-4.0); HEMOGLOBIN 9.7 g/dL (12.0-18.0); LYMPH % 26.3 % (20.0-40.0); MEAN CELL VOLUME 86.5 fL (80.0-94.0); MEAN CORPUSCULAR HEMOGLOBIN 29.1 pg (27.0-31.0); MEAN CORPUSCULAR HGB CONC 33.6 g/dL (33.0-37.0); MONO # 0.4 K/uL (0.0-0.8); NEUT # 2.2 K/uL (1.8-7.0); NEUT % 55.4 % (50.0-75.0); NRBC % 0.1 % (0.0-2.0); RBC 3.34 Mil/uL (4.40-5.90); RED CELL DISTRIBUTION WIDTH 15.4 % (11.5-14.5)
[2017-03-11 17:30] LABS: BLOOD UREA NITROGEN 8 mg/dL (9-20); CALCIUM 7.3 mg/dl (8.6-10.4); GFR AFRICAN-AMERICAN > 60; GFR NON-AFRICAN AMERICAN > 60
--- NOTE | 2017-03-11 20:53 | CP.PCM.PN ---
Subjective - Date & Time of Evaluation Date of Evaluation: 03/11/17 Time of Evaluation: 20:53 - Subjective Subjective: CHIEF COMPLAINTS TODAY : afebrile, s/p Romero REINSERTION BY .03/07/17 NO NEW COMPLAINTS SEEN BY NEPHROLOGY FOR HYPONATREMIA ROS. HEENT : N. Resp : No cough, wheezing ,pleuritic CP ,or hemoptysis Cardio : No anginal CP, PND, orthopnea, palpitation GI : No abd.pain, n/v ,diarrhea or GI bleeding . 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 Musculoskel : No joint swelling , Derm : No rash Psych : Normal affect. Ext : No swelling ,calf pain PE. Pt. is alert awake in no distress. V.S As noted in the chart Head ,ear nose,throat and eyes : Normal. Neck : Supple with normal carotids. Lungs: Clear air entry. Heart : S1 & S2 normal with S4. No murmur. Abd : Soft non tender with normal bowel sounds. Neuro : Moves all ext. with no localized deficit. Ext : No edema with intact pulses.Non tender calves LT, FOOT IN DRY DRESSING/ MULTIPODUS BOOTS Derm : No rashes or decubitus ulcer. LABS/RADIOLOGY: reviewed. repeat urine culture 03/06/17 -ve growth. urine culture +ve MRSA RENAL FUNCTION STABLE. ASSESSMENT SEPSIS SEC. UTI/CHRONIC Romero +VE MRSA HX . URINARY RETENTION / ? NEUROGENIC BLADDER CA OF PROSTATE. HYPONATREMIIA R/O SIADH HTN. lEFT FOOT DECUBITUS ULCER-UNSTAGEABLE. /PLAN : UA, URINE CULTURE - CONTINUE iv VANCOMYCIN 1 G ONCE A DAY DAILY.03/03/17 -DAY 8 LT FOOT ULCER -DRY. PER PODIATRY. CONTACT PRECAUTIONS. Objective - Vital Signs/Intake and Output Vital Signs (last 24 hours): Temp Pulse Resp BP Pulse Ox 98.5 F 96 H 20 127/72 100 03/11/17 16:41 03/11/17 16:41 03/11/17 16:41 03/11/17 16:41 03/11/17 16:41 Intake and Output: 03/11/17 03/12/17 18:59 06:59 Intake Total 250 Output Total 750 Balance -500 - Medications Medications: Current Medications Acetaminophen (Tylenol 325mg Tab) 650 mg PO Q6H PRN PRN Reason: Pain, moderate (4-7) Last Admin: 03/06/17 09:34 Dose: 650 mg Famotidine (Pepcid) 20 mg PO DAILY [facility] Last Admin: 03/11/17 10:39 Dose: 20 mg Vancomycin HCl 1 gm/ Sodium (Chloride) 200 mls @ 166.7 mls/hr IVPB Q24H [facility] Last Admin: 03/10/17 21:44 Dose: 166.7 mls/hr Rosuvastatin Calcium (Crestor) 10 mg PO HS [facility] Last Admin: 03/10/17 21:44 Dose: 10 mg Tamsulosin HCl (Flomax) 0.4 mg PO DAILY [facility] Last Admin: 03/11/17 10:39 Dose: 0.4 mg - Labs Labs: 03/11/17 17:05 03/11/17 17:05 PT 14.6 SECONDS (9.7-12.2) H 03/02/17 21:00 INR 1.3 03/02/17 21:00 APTT 33 SECONDS (21-34) 03/02/17 21:00
[2017-03-11] MEDS: Vancomycin 1 GM in Sodium Chloride 0.9% 200 ML IVPB SCH (21:08)
--- NOTE | 2017-03-11 22:42 | CP.PCM.PN ---
Subjective - Date & Time of Evaluation Date of Evaluation: 03/11/17 Time of Evaluation: 19:10 - Subjective Subjective: Pt seen and evalauted, is stil hyponatremia, he will receive SEmsca and we will check his Na levels tommorw, pt us also been seen by (urology) Objective - Vital Signs/Intake and Output Vital Signs (last 24 hours): Temp Pulse Resp BP Pulse Ox 98.5 F 96 H 20 127/72 100 03/11/17 16:41 03/11/17 16:41 03/11/17 16:41 03/11/17 16:41 03/11/17 16:41 Intake and Output: 03/11/17 03/12/17 18:59 06:59 Intake Total 250 Output Total 750 Balance -500 - Medications Medications: Current Medications Acetaminophen (Tylenol 325mg Tab) 650 mg PO Q6H PRN PRN Reason: Pain, moderate (4-7) Last Admin: 03/06/17 09:34 Dose: 650 mg Famotidine (Pepcid) 20 mg PO DAILY [facility] Last Admin: 03/11/17 10:39 Dose: 20 mg Vancomycin HCl 1 gm/ Sodium (Chloride) 200 mls @ 166.7 mls/hr IVPB Q24H [facility] Last Admin: 03/11/17 21:08 Dose: 166.7 mls/hr Rosuvastatin Calcium (Crestor) 10 mg PO HS [facility] Last Admin: 03/11/17 21:41 Dose: 10 mg Tamsulosin HCl (Flomax) 0.4 mg PO DAILY [facility] Last Admin: 03/11/17 10:39 Dose: 0.4 mg - Labs Labs: 03/11/17 17:05 03/11/17 17:05 PT 14.6 SECONDS (9.7-12.2) H 03/02/17 21:00 INR 1.3 03/02/17 21:00 APTT 33 SECONDS (21-34) 03/02/17 21:00 - Constitutional Appears: No Acute Distress - Head Exam Head Exam: ATRAUMATIC, NORMAL INSPECTION, NORMOCEPHALIC - Eye Exam Eye Exam: EOMI, Normal appearance, PERRL Pupil Exam: NORMAL ACCOMODATION, PERRL - Respiratory Exam Respiratory Exam: Clear to Ausculation Bilateral, NORMAL BREATHING PATTERN - Cardiovascular Exam Cardiovascular Exam: REGULAR RHYTHM, +S1, +S2. absent: Murmur - GI/Abdominal Exam GI & Abdominal Exam: Soft, Normal Bowel Sounds. absent: Tenderness Assessment and Plan (1) CA prostate, adenoca Status: Acute (2) Sepsis Status: Acute (3) UTI (urinary tract infection) Status: Acute (4) Acute urinary retention Status: Acute (5) CAD (coronary artery disease) Status: Acute (6) Hyponatremia Status: Acute
[2017-03-12 08:42] LABS: BLOOD UREA NITROGEN 7 mg/dL (9-20); CALCIUM 7.8 mg/dl (8.6-10.4); GFR AFRICAN-AMERICAN > 60; GFR NON-AFRICAN AMERICAN > 60
--- NOTE | 2017-03-12 10:37 | CP.PCM.PN ---
Subjective - Date & Time of Evaluation Date of Evaluation: 03/12/17 Time of Evaluation: 10:35 - Subjective Subjective: Alert good UO Good response to tovalptan- Na now 133 would continue fluid restriction Objective - Vital Signs/Intake and Output Vital Signs (last 24 hours): Temp Pulse Resp BP Pulse Ox 97.5 F L 100 H 20 124/67 99 03/12/17 08:53 03/12/17 08:53 03/12/17 08:53 03/12/17 08:53 03/12/17 08:53 Intake and Output: 03/12/17 03/12/17 06:59 18:59 Intake Total 550 Output Total 1600 Balance -1050 - Medications Medications: Current Medications Acetaminophen (Tylenol 325mg Tab) 650 mg PO Q6H PRN PRN Reason: Pain, moderate (4-7) Last Admin: 03/06/17 09:34 Dose: 650 mg Famotidine (Pepcid) 20 mg PO DAILY [facility] Last Admin: 03/12/17 10:14 Dose: 20 mg Vancomycin HCl 1 gm/ Sodium (Chloride) 200 mls @ 166.7 mls/hr IVPB Q24H [facility] Last Admin: 03/11/17 21:08 Dose: 166.7 mls/hr Rosuvastatin Calcium (Crestor) 10 mg PO HS [facility] Last Admin: 03/11/17 21:41 Dose: 10 mg Tamsulosin HCl (Flomax) 0.4 mg PO DAILY [facility] Last Admin: 03/12/17 10:14 Dose: 0.4 mg - Labs Labs: 03/11/17 17:05 03/12/17 08:23 PT 14.6 SECONDS (9.7-12.2) H 03/02/17 21:00 INR 1.3 03/02/17 21:00 APTT 33 SECONDS (21-34) 03/02/17 21:00 - Constitutional Appears: No Acute Distress, Chronically Ill - Head Exam Head Exam: ATRAUMATIC, NORMAL INSPECTION - Eye Exam Eye Exam: EOMI, Normal appearance - Neck Exam Neck Exam: Normal Inspection. absent: Tenderness - Respiratory Exam Respiratory Exam: Clear to Ausculation Bilateral, NORMAL BREATHING PATTERN - Cardiovascular Exam Cardiovascular Exam: REGULAR RHYTHM, +S1 - GI/Abdominal Exam GI & Abdominal Exam: Soft. absent: Tenderness - Extremities Exam Extremities Exam: Normal Inspection. 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
--- NOTE | 2017-03-12 11:02 | CP.PCM.PN ---
<Nathaniel Celeste - Last Filed: 03/12/17 11:00> Subjective - Date & Time of Evaluation Date of Evaluation: 03/12/17 Time of Evaluation: 11:00 - Subjective Subjective: pt seen at bedside with assistance of resident for continued treatment of ungradable ulcer left foot . Objective - Vital Signs/Intake and Output Vital Signs (last 24 hours): Temp Pulse Resp BP Pulse Ox 97.5 F L 100 H 20 124/67 99 03/12/17 08:53 03/12/17 08:53 03/12/17 08:53 03/12/17 08:53 03/12/17 08:53 Intake and Output: 03/12/17 03/12/17 06:59 18:59 Intake Total 550 Output Total 1600 Balance -1050 - Medications Medications: Current Medications Acetaminophen (Tylenol 325mg Tab) 650 mg PO Q6H PRN PRN Reason: Pain, moderate (4-7) Last Admin: 03/06/17 09:34 Dose: 650 mg Famotidine (Pepcid) 20 mg PO DAILY [facility] Last Admin: 03/12/17 10:14 Dose: 20 mg Vancomycin HCl 1 gm/ Sodium (Chloride) 200 mls @ 166.7 mls/hr IVPB Q24H [facility] Last Admin: 03/11/17 21:08 Dose: 166.7 mls/hr Rosuvastatin Calcium (Crestor) 10 mg PO HS [facility] Last Admin: 03/11/17 21:41 Dose: 10 mg Tamsulosin HCl (Flomax) 0.4 mg PO DAILY [facility] Last Admin: 03/12/17 10:14 Dose: 0.4 mg - Labs Labs: 03/11/17 17:05 03/12/17 08:23 PT 14.6 SECONDS (9.7-12.2) H 03/02/17 21:00 INR 1.3 03/02/17 21:00 APTT 33 SECONDS (21-34) 03/02/17 21:00 <Rosalind Ashford - Last Filed: 03/12/17 16:37> Objective - Vital Signs/Intake and Output Vital Signs (last 24 hours): Temp Pulse Resp BP Pulse Ox 97.5 F L 100 H 20 124/67 99 03/12/17 08:53 03/12/17 08:53 03/12/17 08:53 03/12/17 08:53 03/12/17 08:53 Intake and Output: 03/12/17 03/12/17 06:59 18:59 Intake Total 550 260 Output Total 1600 600 Balance -1050 -340 - Medications Medications: Current Medications Acetaminophen (Tylenol 325mg Tab) 650 mg PO Q6H PRN PRN Reason: Pain, moderate (4-7) Last Admin: 03/06/17 09:34 Dose: 650 mg Famotidine (Pepcid) 20 mg PO DAILY [facility] Last Admin: 03/12/17 10:14 Dose: 20 mg Vancomycin HCl 1 gm/ Sodium (Chloride) 200 mls @ 166.7 mls/hr IVPB Q24H [facility] Last Admin: 03/11/17 21:08 Dose: 166.7 mls/hr Rosuvastatin Calcium (Crestor) 10 mg PO HS [facility] Last Admin: 03/11/17 21:41 Dose: 10 mg Tamsulosin HCl (Flomax) 0.4 mg PO DAILY [facility] Last Admin: 03/12/17 10:14 Dose: 0.4 mg - Labs Labs: 03/11/17 17:05 03/12/17 08:23 PT 14.6 SECONDS (9.7-12.2) H 03/02/17 21:00 INR 1.3 03/02/17 21:00 APTT 33 SECONDS (21-34) 03/02/17 21:00 - Constitutional Appears: Well, Non-toxic, No Acute Distress - Extremities Exam Additional comments: Left lower extremity exam Vasc: Non-palpable DP and PT noted bilaterally. 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 No PTB, no fluctuance, no malodor noted. No sign of acute infection is noted. No interdigital maceration noted. Additional unstageagle ulceration noted to lateral aspect of 5th metatarsal head measuring 1.3cmx 1.0cm with dried eschar overlying. Mild serosanguinous drainage noted. No PTB, no malodor noted. No fluctuance. Ortho: Pain on palpation to heel at the site of ulceration. No pain induced on palpation to lateral 5th metatarsal head Neuro: Gross sensation intact - Neurological Exam Neurological Exam: Alert, Awake, Oriented x3 - Psychiatric Exam Psychiatric exam: Normal Affect, Normal Mood Assessment and Plan - Assessment and Plan (Free Text) Assessment: 81 yo male patient presents with unstageable decubitus ulcerations to left heel and left lateral 5th metatarsal head Plan: Patient seen and evaluated at bedside with attending Dr. Celeste Labs and Vitals reviewed; afebrile, NNL Bone scan of left foot (-) for OM L foot xray 03/04/17: No evidence of OM L foot dressed with betadine soaked gauze, DSD, and multipodus boots applied B/L Continue multipodus boots at all times to prevent new/worsening decubitus ulcerations No surgical intervention planned at this time Patient stable from podiatric standpoint Podiatry will continue to follow while patient in house
--- NOTE | 2017-03-12 14:19 | CP.PCM.PCO ---
Physician Communication Note - Physician Communication Note Physician Communication Note: inform dr florence , patient is medically clear for OR average risk
[2017-03-12 20:59] LABS: BLOOD UREA NITROGEN 9 mg/dL (9-20); CALCIUM 7.6 mg/dl (8.6-10.4); GFR AFRICAN-AMERICAN > 60; GFR NON-AFRICAN AMERICAN > 60
[2017-03-12] MEDS: Vancomycin 1 GM in Sodium Chloride 0.9% 200 ML IVPB SCH (21:40)
--- NOTE | 2017-03-12 22:04 | CP.PCM.PN ---
Subjective - Date & Time of Evaluation Date of Evaluation: 03/12/17 Time of Evaluation: 19:10 - Subjective Subjective: Pt seen and evalauted, is stil hyponatremia, he will receive SEmsca, pt us also been seen by (urology),Pt is clear for OR medical standpoint Objective - Vital Signs/Intake and Output Vital Signs (last 24 hours): Temp Pulse Resp BP Pulse Ox 98.3 F 103 H 20 103/55 L 98 03/12/17 16:33 03/12/17 16:33 03/12/17 16:33 03/12/17 16:33 03/12/17 16:33 Intake and Output: 03/12/17 03/13/17 18:59 06:59 Intake Total 260 Output Total 600 Balance -340 - Medications Medications: Current Medications Acetaminophen (Tylenol 325mg Tab) 650 mg PO Q6H PRN PRN Reason: Pain, moderate (4-7) Last Admin: 03/06/17 09:34 Dose: 650 mg Famotidine (Pepcid) 20 mg PO DAILY [facility] Last Admin: 03/12/17 10:14 Dose: 20 mg Vancomycin HCl 1 gm/ Sodium (Chloride) 200 mls @ 166.7 mls/hr IVPB Q24H [facility] Last Admin: 03/12/17 21:40 Dose: 166.7 mls/hr Rosuvastatin Calcium (Crestor) 10 mg PO HS [facility] Last Admin: 03/12/17 21:41 Dose: 10 mg Tamsulosin HCl (Flomax) 0.4 mg PO DAILY [facility] Last Admin: 03/12/17 10:14 Dose: 0.4 mg - Labs Labs: 03/11/17 17:05 03/12/17 20:29 PT 14.6 SECONDS (9.7-12.2) H 03/02/17 21:00 INR 1.3 03/02/17 21:00 APTT 33 SECONDS (21-34) 03/02/17 21:00 - Constitutional Appears: No Acute Distress - Head Exam Head Exam: ATRAUMATIC, NORMAL INSPECTION, NORMOCEPHALIC - Eye Exam Eye Exam: EOMI, Normal appearance, PERRL Pupil Exam: NORMAL ACCOMODATION, PERRL - Respiratory Exam Respiratory Exam: Clear to Ausculation Bilateral, NORMAL BREATHING PATTERN - Cardiovascular Exam Cardiovascular Exam: REGULAR RHYTHM, +S1, +S2. absent: Murmur Assessment and Plan (1) CA prostate, adenoca Status: Acute (2) Sepsis Status: Acute (3) UTI (urinary tract infection) Status: Acute (4) Acute urinary retention Status: Acute (5) CAD (coronary artery disease) Status: Acute (6) Hyponatremia Status: Acute
--- NOTE | 2017-03-12 23:45 | CP.PCM.PN ---
Subjective - Date & Time of Evaluation Date of Evaluation: 03/12/17 Time of Evaluation: 23:45 - Subjective Subjective: CHIEF COMPLAINTS TODAY : afebrile, s/p Romero REINSERTION BY .03/07/17 NO NEW COMPLAINTS ROS. HEENT : N. Resp : No cough, wheezing ,pleuritic CP ,or hemoptysis Cardio : No anginal CP, PND, orthopnea, palpitation GI : No abd.pain, n/v ,diarrhea or GI bleeding . 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 Musculoskel : No joint swelling , Derm : No rash Psych : Normal affect. Ext : No swelling ,calf pain PE. Pt. is alert awake in no distress. V.S As noted in the chart Head ,ear nose,throat and eyes : Normal. Neck : Supple with normal carotids. Lungs: Clear air entry. Heart : S1 & S2 normal with S4. No murmur. Abd : Soft non tender with normal bowel sounds. Neuro : Moves all ext. with no localized deficit. Ext : No edema with intact pulses.Non tender calves LT, FOOT IN DRY DRESSING/ MULTIPODUS BOOTS Derm : No rashes or decubitus ulcer. LABS/RADIOLOGY: reviewed. REPEAT URINE CULTURE 03/08/17 -VE GROWTH. repeat urine culture 03/06/17 -ve growth. urine culture +ve MRSA RENAL FUNCTION STABLE. ASSESSMENT SEPSIS SEC. UTI/CHRONIC Romero +VE MRSA HX . URINARY RETENTION / ? NEUROGENIC BLADDER CA OF PROSTATE. HYPONATREMIIA R/O SIADH HTN. lEFT FOOT DECUBITUS ULCER-UNSTAGEABLE. /PLAN : CONTINUE iv VANCOMYCIN 1 G ONCE A DAY DAILY.03/03/17 -DAY 10 LT FOOT ULCER -DRY. PER PODIATRY. CONTACT PRECAUTIONS. OK FOR OR PER ID. Objective - Vital Signs/Intake and Output Vital Signs (last 24 hours): Temp Pulse Resp BP Pulse Ox 98.3 F 103 H 20 103/55 L 98 03/12/17 16:33 03/12/17 16:33 03/12/17 16:33 03/12/17 16:33 03/12/17 16:33 Intake and Output: 03/12/17 03/13/17 18:59 06:59 Intake Total 260 Output Total 600 Balance -340 - Medications Medications: Current Medications Acetaminophen (Tylenol 325mg Tab) 650 mg PO Q6H PRN PRN Reason: Pain, moderate (4-7) Last Admin: 03/06/17 09:34 Dose: 650 mg Famotidine (Pepcid) 20 mg PO DAILY [facility] Last Admin: 03/12/17 10:14 Dose: 20 mg Vancomycin HCl 1 gm/ Sodium (Chloride) 200 mls @ 166.7 mls/hr IVPB Q24H [facility] Last Admin: 03/12/17 21:40 Dose: 166.7 mls/hr Rosuvastatin Calcium (Crestor) 10 mg PO HS [facility] Last Admin: 03/12/17 21:41 Dose: 10 mg Tamsulosin HCl (Flomax) 0.4 mg PO DAILY [facility] Last Admin: 03/12/17 10:14 Dose: 0.4 mg - Labs Labs: 03/11/17 17:05 03/12/17 20:29 PT 14.6 SECONDS (9.7-12.2) H 03/02/17 21:00 INR 1.3 03/02/17 21:00 APTT 33 SECONDS (21-34) 03/02/17 21:00
[2017-03-13 08:57] LABS: BLOOD UREA NITROGEN 8 mg/dL (9-20); CALCIUM 7.7 mg/dl (8.6-10.4); GFR AFRICAN-AMERICAN > 60; GFR NON-AFRICAN AMERICAN > 60
[2017-03-13 21:07] LABS: BASO # 0.1 K/uL (0.0-0.2); BASO % 2.2 % (0.0-2.0); EOS # 0.3 K/uL (0.0-0.7); EOS % 7.6 % (0.0-4.0); HEMOGLOBIN 9.1 g/dL (12.0-18.0); LYMPH # 1.3 K/uL (1.0-4.3); LYMPH % 34.1 % (20.0-40.0); MEAN CELL VOLUME 86.9 fL (80.0-94.0); MEAN CORPUSCULAR HGB CONC 33.3 g/dL (33.0-37.0); MEAN PLATELET VOLUME 7.1 fL (7.2-11.7); MONO # 0.3 K/uL (0.0-0.8); MONO % 9.1 % (0.0-10.0); NEUT # 1.8 K/uL (1.8-7.0); NRBC % 0.1 % (0.0-2.0); RBC 3.15 Mil/uL (4.40-5.90); RED CELL DISTRIBUTION WIDTH 15.5 % (11.5-14.5); WHITE BLOOD COUNT 3.8 K/uL (4.8-10.8)
[2017-03-13 21:16] LABS: INR 1.4
[2017-03-13 21:23] LABS: BLOOD UREA NITROGEN 9 mg/dL (9-20); CALCIUM 7.2 mg/dl (8.6-10.4); GFR AFRICAN-AMERICAN > 60; GFR NON-AFRICAN AMERICAN > 60
[2017-03-13] MEDS: Vancomycin 1 GM in Sodium Chloride 0.9% 200 ML IVPB SCH (21:56)
--- NOTE | 2017-03-13 23:09 | CP.PCM.PN ---
Subjective - Date & Time of Evaluation Date of Evaluation: 03/13/17 Time of Evaluation: 16:00 - Subjective Subjective: Pt is seen and examined, he is afebrile, feels better, He is for TURP which is for hold due to persistant hyponatremia, he recieved SEMGRACIELAA Na went up but now again its down Objective - Vital Signs/Intake and Output Vital Signs (last 24 hours): Temp Pulse Resp BP Pulse Ox 97.6 F 90 20 118/69 99 03/13/17 16:45 03/13/17 16:45 03/13/17 16:45 03/13/17 16:45 03/13/17 16:45 Intake and Output: 03/13/17 03/14/17 18:59 06:59 Intake Total 350 Output Total 400 Balance -50 - Medications Medications: Current Medications Acetaminophen (Tylenol 325mg Tab) 650 mg PO Q6H PRN PRN Reason: Pain, moderate (4-7) Last Admin: 03/06/17 09:34 Dose: 650 mg Famotidine (Pepcid) 20 mg PO DAILY [facility] Last Admin: 03/13/17 10:09 Dose: 20 mg Vancomycin HCl 1 gm/ Sodium (Chloride) 200 mls @ 166.7 mls/hr IVPB Q24H [facility] Last Admin: 03/13/17 21:56 Dose: 166.7 mls/hr Rosuvastatin Calcium (Crestor) 10 mg PO HS [facility] Last Admin: 03/13/17 21:56 Dose: 10 mg Tamsulosin HCl (Flomax) 0.4 mg PO DAILY [facility] Last Admin: 03/13/17 10:09 Dose: 0.4 mg - Labs Labs: 03/13/17 21:00 03/13/17 21:00 PT 16.0 SECONDS (9.7-12.2) H 03/13/17 21:00 INR 1.4 03/13/17 21:00 APTT 35 SECONDS (21-34) H 03/13/17 21:00 - Constitutional Appears: No Acute Distress, Chronically Ill - Head Exam Head Exam: ATRAUMATIC, NORMAL INSPECTION, NORMOCEPHALIC - Eye Exam Eye Exam: EOMI, Normal appearance, PERRL Pupil Exam: NORMAL ACCOMODATION, PERRL - Respiratory Exam Respiratory Exam: Clear to Ausculation Bilateral, NORMAL BREATHING PATTERN - Cardiovascular Exam Cardiovascular Exam: REGULAR RHYTHM, +S1, +S2. absent: Murmur - GI/Abdominal Exam GI & Abdominal Exam: Soft, Normal Bowel Sounds. absent: Tenderness - Neurological Exam Neurological Exam: Alert, Awake, CN II-XII Intact, Normal Gait, Oriented x3 Assessment and Plan (1) CA prostate, adenoca Status: Acute (2) Sepsis Status: Acute (3) UTI (urinary tract infection) Status: Acute (4) Acute urinary retention Status: Acute (5) CAD (coronary artery disease) Status: Acute (6) Hyponatremia Status: Acute
[2017-03-14 10:04] LABS: BLOOD UREA NITROGEN 8 mg/dL (9-20); CALCIUM 7.3 mg/dl (8.6-10.4); GFR AFRICAN-AMERICAN > 60; GFR NON-AFRICAN AMERICAN > 60
[2017-03-14] MEDS ORDERED: Lactated Ringer's 1,000 ML IV ONE (10:26)
[2017-03-14] MEDS ORDERED: Propofol 10 mg/ml Inj (20 ML) ONE (10:35)
[2017-03-14] MEDS ORDERED: Lidocaine Hydrochloride 5 ML INJ ONE (10:46)
--- NOTE | 2017-03-14 11:26 | PCM.SURG1 ---
Surgeon's Initial Post Op Note - Surgeon's Notes Surgeon: Maricel Glez Intake Rn: none Type of Anesthesia: General LMA Pre-Operative Diagnosis: urinary retention. prostate ca Operative Findings: same Post-Operative Diagnosis: same Operation Performed: TURP Specimen/Specimens Removed: urine, prostate Estimated Blood Loss: EBL {In ML}: 15 Blood Products Given: N/A Post-Op Condition: Good Date of Surgery/Procedure: 03/14/17 Time of Surgery/Procedure: 11:26
[2017-03-14] MEDS ORDERED: HYDROmorphone 0.5 mg/0.5 ml ISec IVP PRN (11:47)
--- NOTE | 2017-03-14 13:00 | CP.PCM.PN ---
Subjective - Date & Time of Evaluation Date of Evaluation: 03/14/17 Time of Evaluation: 12:59 - Subjective Subjective: s/p TURP; with CBI Feels same only c/o pain from sparrow Objective - Vital Signs/Intake and Output Vital Signs (last 24 hours): Temp Pulse Resp BP Pulse Ox 97 F L 104 H 20 100/52 L 97 03/14/17 12:15 03/14/17 12:15 03/14/17 12:15 03/14/17 12:15 03/14/17 12:15 Intake and Output: 03/14/17 03/14/17 06:59 18:59 Output Total 400 100 Balance -400 -100 - Medications Medications: Current Medications Acetaminophen (Tylenol 325mg Tab) 650 mg PO Q6H PRN PRN Reason: Pain, moderate (4-7) Last Admin: 03/06/17 09:34 Dose: 650 mg Famotidine (Pepcid) 20 mg PO DAILY [facility] Last Admin: 03/13/17 10:09 Dose: 20 mg Hydromorphone HCl (Dilaudid) 0.5 mg IVP Q10M PRN PRN Reason: Pain, moderate (4-7) Stop: 03/14/17 13:49 Vancomycin HCl 1 gm/ Sodium (Chloride) 200 mls @ 166.7 mls/hr IVPB Q24H [facility] Last Admin: 03/13/17 21:56 Dose: 166.7 mls/hr Lactated Ringer's (Lactated Ringer's) 1,000 mls @ 150 mls/hr IV .Q6H40M [facility] Ondansetron HCl (Zofran Inj) 4 mg IVP ONCE PRN PRN Reason: Nausea/Vomiting Stop: 03/14/17 13:50 Rosuvastatin Calcium (Crestor) 10 mg PO HS [facility] Last Admin: 03/13/17 21:56 Dose: 10 mg Tamsulosin HCl (Flomax) 0.4 mg PO DAILY [facility] Last Admin: 03/13/17 10:09 Dose: 0.4 mg - Labs Labs: 03/13/17 21:00 03/14/17 09:42 PT 16.0 SECONDS (9.7-12.2) H 03/13/17 21:00 INR 1.4 03/13/17 21:00 APTT 35 SECONDS (21-34) H 03/13/17 21:00 - Constitutional Appears: No Acute Distress, Cachectic, Chronically Ill - Head Exam Head Exam: ATRAUMATIC, NORMAL INSPECTION - Eye Exam Eye Exam: EOMI, Normal appearance - Neck Exam Neck Exam: Normal Inspection. absent: Tenderness - Respiratory Exam Respiratory Exam: Clear to Ausculation Bilateral, NORMAL BREATHING PATTERN - Cardiovascular Exam Cardiovascular Exam: REGULAR RHYTHM, +S1 - GI/Abdominal Exam GI & Abdominal Exam: Soft. 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
[2017-03-14] MEDS ORDERED: Tolvaptan 15 MG TAB PO ONE (13:01)
[2017-03-14] MEDS: Lactated Ringer's 1,000 ML IV SCH ×2 (13:17→22:36)
[2017-03-14] MEDS: Vancomycin 1 GM in Sodium Chloride 0.9% 200 ML IVPB SCH (22:08)
--- NOTE | 2017-03-14 22:23 | CP.PCM.PN ---
Subjective - Date & Time of Evaluation Date of Evaluation: 03/14/17 Time of Evaluation: 22:23 - Subjective Subjective: CHIEF COMPLAINTS TODAY : S/P TURP 03/14/17 afebrile, ROMERO DRTAINING CLEAR URINE NO NEW COMPLAINTS ROS. HEENT : N. Resp : No cough, wheezing ,pleuritic CP ,or hemoptysis Cardio : No anginal CP, PND, orthopnea, palpitation GI : No abd.pain, n/v ,diarrhea or GI bleeding . 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 Musculoskel : No joint swelling , Derm : No rash Psych : Normal affect. Ext : No swelling ,calf pain PE. Pt. is alert awake in no distress. V.S As noted in the chart Head ,ear nose,throat and eyes : Normal. Neck : Supple with normal carotids. Lungs: Clear air entry. Heart : S1 & S2 normal with S4. No murmur. Abd : Soft non tender with normal bowel sounds. Neuro : Moves all ext. with no localized deficit. Ext : No edema with intact pulses.Non tender calves LT, FOOT IN DRY DRESSING/ MULTIPODUS BOOTS Derm : No rashes or decubitus ulcer. LABS/RADIOLOGY: reviewed. REPEAT URINE CULTURE 03/08/17 -VE GROWTH. repeat urine culture 03/06/17 -ve growth. urine culture +ve MRSA RENAL FUNCTION STABLE. ASSESSMENT S/P TURP S/P SEPSIS SEC. UTI/CHRONIC Romero +VE MRSA HX . URINARY RETENTION CA OF PROSTATE. HYPONATREMIIA HTN. lEFT FOOT DECUBITUS ULCER-UNSTAGEABLE. /PLAN : CONTINUE iv VANCOMYCIN 1 G ONCE A DAY DAILY.03/03/17 -DAY 12 DC VANCOMYCIN ON REMOVAL OF ROMERO PER LT FOOT ULCER -DRY. PER PODIATRY. CONTACT PRECAUTIONS. OK FOR OR PER ID. Objective - Vital Signs/Intake and Output Vital Signs (last 24 hours): Temp Pulse Resp BP Pulse Ox 97.2 F L 97 H 20 101/63 99 03/14/17 18:12 03/14/17 18:12 03/14/17 18:12 03/14/17 18:12 03/14/17 18:12 Intake and Output: 03/14/17 03/15/17 18:59 06:59 Intake Total 2620 Output Total 0 Balance 570 - Medications Medications: Current Medications Acetaminophen (Tylenol 325mg Tab) 650 mg PO Q6H PRN PRN Reason: Pain, moderate (4-7) Last Admin: 03/06/17 09:34 Dose: 650 mg Famotidine (Pepcid) 20 mg PO DAILY [facility] Last Admin: 03/14/17 13:17 Dose: 20 mg Vancomycin HCl 1 gm/ Sodium (Chloride) 200 mls @ 166.7 mls/hr IVPB Q24H [facility] Last Admin: 03/14/17 22:08 Dose: 166.7 mls/hr Rosuvastatin Calcium (Crestor) 10 mg PO HS [facility] Last Admin: 03/14/17 22:08 Dose: 10 mg Tamsulosin HCl (Flomax) 0.4 mg PO DAILY [facility] Last Admin: 03/14/17 13:17 Dose: 0.4 mg - Labs Labs: 03/13/17 21:00 03/14/17 09:42 PT 16.0 SECONDS (9.7-12.2) H 03/13/17 21:00 INR 1.4 03/13/17 21:00 APTT 35 SECONDS (21-34) H 03/13/17 21:00
--- NOTE | 2017-03-14 22:56 | CP.PCM.PN ---
Subjective - Date & Time of Evaluation Date of Evaluation: 03/14/17 Time of Evaluation: 17:00 - Subjective Subjective: Pt is seen and evalauted s/p TURP, foleys in place with clear urine Objective - Vital Signs/Intake and Output Vital Signs (last 24 hours): Temp Pulse Resp BP Pulse Ox 97.2 F L 97 H 20 101/63 99 03/14/17 18:12 03/14/17 18:12 03/14/17 18:12 03/14/17 18:12 03/14/17 18:12 Intake and Output: 03/14/17 03/15/17 18:59 06:59 Intake Total 2620 Output Total 2050 Balance 570 - Medications Medications: Current Medications Acetaminophen (Tylenol 325mg Tab) 650 mg PO Q6H PRN PRN Reason: Pain, moderate (4-7) Last Admin: 03/06/17 09:34 Dose: 650 mg Famotidine (Pepcid) 20 mg PO DAILY [facility] Last Admin: 03/14/17 13:17 Dose: 20 mg Vancomycin HCl 1 gm/ Sodium (Chloride) 200 mls @ 166.7 mls/hr IVPB Q24H [facility] Last Admin: 03/14/17 22:08 Dose: 166.7 mls/hr Rosuvastatin Calcium (Crestor) 10 mg PO HS [facility] Last Admin: 03/14/17 22:08 Dose: 10 mg Tamsulosin HCl (Flomax) 0.4 mg PO DAILY [facility] Last Admin: 03/14/17 13:17 Dose: 0.4 mg - Labs Labs: 03/13/17 21:00 03/14/17 09:42 PT 16.0 SECONDS (9.7-12.2) H 03/13/17 21:00 INR 1.4 03/13/17 21:00 APTT 35 SECONDS (21-34) H 03/13/17 21:00 - Constitutional Appears: No Acute Distress - Head Exam Head Exam: ATRAUMATIC, NORMAL INSPECTION, NORMOCEPHALIC - Eye Exam Eye Exam: EOMI, Normal appearance, PERRL Pupil Exam: NORMAL ACCOMODATION, PERRL - Respiratory Exam Respiratory Exam: Clear to Ausculation Bilateral, NORMAL BREATHING PATTERN - Cardiovascular Exam Cardiovascular Exam: REGULAR RHYTHM - GI/Abdominal Exam GI & Abdominal Exam: Soft, Normal Bowel Sounds. absent: Tenderness Assessment and Plan (1) CA prostate, adenoca Status: Acute (2) Sepsis Status: Acute (3) UTI (urinary tract infection) Status: Acute (4) Acute urinary retention Status: Acute (5) CAD (coronary artery disease) Status: Acute (6) Hyponatremia Status: Acute (7) S/P TURP (status post transurethral resection of prostate) Status: Acute
[2017-03-15 08:24] LABS: MEAN CELL VOLUME 86.8 fL (80.0-94.0); MEAN CORPUSCULAR HEMOGLOBIN 29.2 pg (27.0-31.0); MEAN CORPUSCULAR HGB CONC 33.6 g/dL (33.0-37.0); MEAN PLATELET VOLUME 7.5 fL (7.2-11.7); RBC 3.09 Mil/uL (4.40-5.90); WHITE BLOOD COUNT 3.8 K/uL (4.8-10.8)
[2017-03-15 09:04] LABS: BLOOD UREA NITROGEN 9 mg/dL (9-20); CALCIUM 7.2 mg/dl (8.6-10.4); GFR AFRICAN-AMERICAN > 60; GFR NON-AFRICAN AMERICAN > 60
--- NOTE | 2017-03-15 10:41 | PCM.URO ---
Urology Progress Note - General General: No Complaints, Tolerating Diet - Subjective Abdominal Pain: No Flank Pain: No Nausea: No Vomiting: No Voiding Well: No (catheter in place) Hematuria: No Dsypnea: No Chest Pain: No Fever & Chills: No - Objective Lab Studies: Reviewed Lab Results Last 24 Hours: Laboratory Results - last 24 hr 03/15/17 03/15/17 08:16 08:16 WBC 3.8 L RBC 3.09 L Hgb 9.0 L Hct 26.8 L MCV 86.8 MCH 29.2 MCHC 33.6 RDW 15.0 H Plt Count 274 MPV 7.5 Sodium 125 L Potassium 3.7 Chloride 98 Carbon Dioxide 25 Anion Gap 7 L BUN 9 Creatinine 0.5 L Est GFR ( Amer) > 60 Est GFR (Non-Af Amer) > 60 Random Glucose 76 Calcium 7.2 L Intake & Output: Intake & Output 03/14/17 03/15/17 03/15/17 18:59 06:59 18:59 Intake Total 2620 Output Total 2049 Balance 570 Intake: Intake, IV Amount 250 Right Hand 250 Oral 370 Other 1999 Output: Urine 2049 2-way Urethral 1950 Other: # Bowel Movements 0 Vital Signs: Vital Signs - 24 hr 03/14/17 03/14/17 03/14/17 11:33 11:45 12:00 Temperature 97 F L Pulse Rate 115 H 106 H 105 H Respiratory 19 20 20 Rate Blood Pressure 87/50 L 95/47 L 101/58 L O2 Sat by Pulse 97 97 97 Oximetry 03/14/17 03/14/17 03/14/17 12:15 16:09 18:12 Temperature 97 F L 97.2 F L 97.2 F L Pulse Rate 104 H 97 H 97 H Respiratory 20 20 20 Rate Blood Pressure 100/52 L 101/63 101/63 O2 Sat by Pulse 97 99 99 Oximetry 03/15/17 03/15/17 00:10 08:25 Temperature 97.3 F L 976 F H Pulse Rate 92 H 98 H Respiratory 20 20 Rate Blood Pressure 116/59 L 123/71 O2 Sat by Pulse 97 98 Oximetry - Physical Exam Abdominal Exam: Soft, Non-Tender, Non-Distended Bowel Sounds: Normal Back: No CVA Tenderness Genitalia: Without Inflammation Urinary Catheter Draining Well: Yes Urine Color: Clear, Light Monse Extremities: Normal: Bilateral - Male Phallus: Normal Scrotum: Normal - Plan Catheter Care: Yes Ambulation - Out of Bed: Yes Intake & Output: Yes See Orders: Yes Additional Information: Imp: progressing well, post TURP. Prostate ca
--- NOTE | 2017-03-15 11:26 | CP.PCM.PN ---
Subjective - Date & Time of Evaluation Date of Evaluation: 03/15/17 Time of Evaluation: 11:23 - Subjective Subjective: 81 y/o male seen at bedside with attending Dr. Celeste for left foot unstageable ulceration. Patient denies any acute events overnight. Patient states that he has mild pain and tenderness to the area. Patient denies any other pedal complaints at this time. Denies n/f/v/d/c/sob. Objective - Vital Signs/Intake and Output Vital Signs (last 24 hours): Temp Pulse Resp BP Pulse Ox 976 F H 98 H 20 123/71 98 03/15/17 08:25 03/15/17 08:25 03/15/17 08:25 03/15/17 08:25 03/15/17 08:25 - Medications Medications: Current Medications Acetaminophen (Tylenol 325mg Tab) 650 mg PO Q6H PRN PRN Reason: Pain, moderate (4-7) Last Admin: 03/06/17 09:34 Dose: 650 mg Famotidine (Pepcid) 20 mg PO DAILY [facility] Last Admin: 03/15/17 10:17 Dose: 20 mg Vancomycin HCl 1 gm/ Sodium (Chloride) 200 mls @ 166.7 mls/hr IVPB Q24H [facility] Last Admin: 03/14/17 22:08 Dose: 166.7 mls/hr Rosuvastatin Calcium (Crestor) 10 mg PO HS [facility] Last Admin: 03/14/17 22:08 Dose: 10 mg Tamsulosin HCl (Flomax) 0.4 mg PO DAILY [facility] Last Admin: 03/15/17 10:17 Dose: 0.4 mg - Labs Labs: 03/15/17 08:16 03/15/17 08:16 PT 16.0 SECONDS (9.7-12.2) H 03/13/17 21:00 INR 1.4 03/13/17 21:00 APTT 35 SECONDS (21-34) H 03/13/17 21:00 - Constitutional Appears: Well, Non-toxic, No Acute Distress - Extremities Exam Additional comments: Left lower extremity exam Vasc: Non-palpable DP and PT noted bilaterally. 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 No PTB, no fluctuance, no malodor noted. No sign of acute infection is noted. No interdigital maceration noted. Additional unstageagle ulceration noted to lateral aspect of 5th metatarsal head measuring 1.3cmx 1.0cm with fibrous base, + probe to bone. Mild serosanguinous drainage noted. No PTB, no malodor noted. No fluctuance. Ortho: Pain on palpation to heel at the site of ulceration. No pain induced on palpation to lateral 5th metatarsal head Neuro: Gross sensation intact - Neurological Exam Neurological Exam: Alert, Awake, Oriented x3 - Psychiatric Exam Psychiatric exam: Normal Affect, Normal Mood Assessment and Plan - Assessment and Plan (Free Text) Assessment: 81 yo male patient presents with unstageable decubitus ulcerations to left heel and left lateral 5th metatarsal head Plan: Patient seen and evaluated at bedside with attending Dr. Celeste Labs and Vitals reviewed; afebrile, WBC 3.8 Bone scan of left foot (-) for OM L foot xray 03/04/17: No evidence of OM L foot dressed with betadine soaked gauze, DSD, and multipodus boots applied B/L Continue multipodus boots at all times to prevent new/worsening decubitus ulcerations No surgical intervention planned at this time f/u akua/pvr Patient stable from podiatric standpoint Podiatry will continue to follow while patient in house
[2017-03-15] MEDS ORDERED: Tolvaptan 15 MG TAB PO ONE (13:06)
--- NOTE | 2017-03-15 13:08 | CP.PCM.PN ---
Subjective - Date & Time of Evaluation Date of Evaluation: 03/15/17 Time of Evaluation: 13:07 - Subjective Subjective: pt seen and examined s/p TURP, clear urine Labs noted no nausea vomiting cp sob fevers chills cough raash dizziness headache Objective - Vital Signs/Intake and Output Vital Signs (last 24 hours): Temp Pulse Resp BP Pulse Ox 976 F H 98 H 20 123/71 98 03/15/17 08:25 03/15/17 08:25 03/15/17 08:25 03/15/17 08:25 03/15/17 08:25 - Medications Medications: Current Medications Acetaminophen (Tylenol 325mg Tab) 650 mg PO Q6H PRN PRN Reason: Pain, moderate (4-7) Last Admin: 03/06/17 09:34 Dose: 650 mg Famotidine (Pepcid) 20 mg PO DAILY [facility] Last Admin: 03/15/17 10:17 Dose: 20 mg Vancomycin HCl 1 gm/ Sodium (Chloride) 200 mls @ 166.7 mls/hr IVPB Q24H [facility] Last Admin: 03/14/17 22:08 Dose: 166.7 mls/hr Rosuvastatin Calcium (Crestor) 10 mg PO HS [facility] Last Admin: 03/14/17 22:08 Dose: 10 mg Tamsulosin HCl (Flomax) 0.4 mg PO DAILY [facility] Last Admin: 03/15/17 10:17 Dose: 0.4 mg Tolvaptan (Samsca) 15 mg PO ONCE ONE Stop: 03/15/17 13:07 - Labs Labs: 03/15/17 08:16 03/15/17 08:16 PT 16.0 SECONDS (9.7-12.2) H 03/13/17 21:00 INR 1.4 03/13/17 21:00 APTT 35 SECONDS (21-34) H 03/13/17 21:00 - Constitutional Appears: Non-toxic, Cachectic, Chronically Ill - Head Exam Head Exam: NORMAL INSPECTION - Eye Exam Eye Exam: Normal appearance Pupil Exam: NORMAL ACCOMODATION - ENT Exam ENT Exam: Mucous Membranes Dry, Normal Exam - Neck Exam Neck Exam: Normal Inspection - Respiratory Exam Respiratory Exam: Clear to Ausculation Bilateral, NORMAL BREATHING PATTERN - Cardiovascular Exam Cardiovascular Exam: REGULAR RHYTHM, RRR - GI/Abdominal Exam GI & Abdominal Exam: Distended, Soft - Extremities Exam Extremities Exam: Normal Inspection (b/l boots) Assessment and Plan (1) CA prostate, adenoca Status: Acute (2) Hyponatremia Status: Acute (3) S/P TURP (status post transurethral resection of prostate) Status: Acute (4) SIADH (syndrome of inappropriate ADH production) Status: Acute (5) UTI (urinary tract infection) Status: Acute - Assessment and Plan (Free Text) Assessment: one dose of tolvaptan today daily chems
[2017-03-15] MEDS: Vancomycin 1 GM in Sodium Chloride 0.9% 200 ML IVPB SCH (19:24)
--- NOTE | 2017-03-15 21:17 | CP.PCM.PN ---
Subjective - Date & Time of Evaluation Date of Evaluation: 03/15/17 Time of Evaluation: 17:50 - Subjective Subjective: pt seen and examined s/p TURP, clear urine Labs noted no nausea vomiting cp sob fevers chills cough raash dizziness headache Objective - Vital Signs/Intake and Output Vital Signs (last 24 hours): Temp Pulse Resp BP Pulse Ox 98.6 F 107 H 18 111/57 L 98 03/15/17 16:28 03/15/17 16:28 03/15/17 16:28 03/15/17 16:28 03/15/17 08:25 Intake and Output: 03/15/17 03/16/17 18:59 06:59 Intake Total 280 Output Total 1000 Balance -720 - Medications Medications: Current Medications Acetaminophen (Tylenol 325mg Tab) 650 mg PO Q6H PRN PRN Reason: Pain, moderate (4-7) Last Admin: 03/06/17 09:34 Dose: 650 mg Famotidine (Pepcid) 20 mg PO DAILY [facility] Last Admin: 03/15/17 10:17 Dose: 20 mg Vancomycin HCl 1 gm/ Sodium (Chloride) 200 mls @ 166.7 mls/hr IVPB Q24H [facility] Last Admin: 03/15/17 19:24 Dose: 166.7 mls/hr Rosuvastatin Calcium (Crestor) 10 mg PO HS [facility] Last Admin: 03/14/17 22:08 Dose: 10 mg Tamsulosin HCl (Flomax) 0.4 mg PO DAILY [facility] Last Admin: 03/15/17 10:17 Dose: 0.4 mg - Labs Labs: 03/15/17 08:16 03/15/17 08:16 PT 16.0 SECONDS (9.7-12.2) H 03/13/17 21:00 INR 1.4 03/13/17 21:00 APTT 35 SECONDS (21-34) H 03/13/17 21:00 Assessment and Plan (1) CA prostate, adenoca Status: Acute (2) Sepsis Status: Acute (3) UTI (urinary tract infection) Status: Acute (4) Acute urinary retention Status: Acute (5) CAD (coronary artery disease) Status: Acute (6) Hyponatremia Status: Acute (7) S/P TURP (status post transurethral resection of prostate) Status: Acute
--- NOTE | 2017-03-15 22:32 | CP.PCM.PN ---
Subjective - Date & Time of Evaluation Date of Evaluation: 03/15/17 Time of Evaluation: 22:32 - Subjective Subjective: CHIEF COMPLAINTS TODAY : S/P TURP 03/14/17 afebrile, ROMERO DRAINING CLEAR URINE NO NEW COMPLAINTS ROS. HEENT : N. Resp : No cough, wheezing ,pleuritic CP ,or hemoptysis Cardio : No anginal CP, PND, orthopnea, palpitation GI : No abd.pain, n/v ,diarrhea or GI bleeding . 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 Musculoskel : No joint swelling , Derm : No rash Psych : Normal affect. Ext : No swelling ,calf pain PE. Pt. is alert awake in no distress. V.S As noted in the chart Head ,ear nose,throat and eyes : Normal. Neck : Supple with normal carotids. Lungs: Clear air entry. Heart : S1 & S2 normal with S4. No murmur. Abd : Soft non tender with normal bowel sounds. Neuro : Moves all ext. with no localized deficit. Ext : No edema with intact pulses.Non tender calves LT, FOOT IN DRY DRESSING/ MULTIPODUS BOOTS Derm : No rashes or decubitus ulcer. LABS/RADIOLOGY: reviewed. REPEAT URINE CULTURE 03/08/17 -VE GROWTH. repeat urine culture 03/06/17 -ve growth. urine culture +ve MRSA RENAL FUNCTION STABLE. ASSESSMENT S/P TURP S/P SEPSIS SEC. UTI/CHRONIC Romero +VE MRSA HX . URINARY RETENTION CA OF PROSTATE. HYPONATREMIIA HTN. lEFT FOOT DECUBITUS ULCER-UNSTAGEABLE. /PLAN : CONTINUE iv VANCOMYCIN 1 G ONCE A DAY DAILY.03/03/17 -DAY 13 DC VANCOMYCIN ON REMOVAL OF ROMERO PER LT FOOT ULCER -DRY. PER PODIATRY. CONTACT PRECAUTIONS. Objective - Vital Signs/Intake and Output Vital Signs (last 24 hours): Temp Pulse Resp BP Pulse Ox 98.6 F 107 H 18 111/57 L 98 03/15/17 16:28 03/15/17 16:28 03/15/17 16:28 03/15/17 16:28 03/15/17 08:25 Intake and Output: 03/15/17 03/16/17 18:59 06:59 Intake Total 280 Output Total 1000 Balance -720 - Medications Medications: Current Medications Acetaminophen (Tylenol 325mg Tab) 650 mg PO Q6H PRN PRN Reason: Pain, moderate (4-7) Last Admin: 03/06/17 09:34 Dose: 650 mg Famotidine (Pepcid) 20 mg PO DAILY [facility] Last Admin: 03/15/17 10:17 Dose: 20 mg Vancomycin HCl 1 gm/ Sodium (Chloride) 200 mls @ 166.7 mls/hr IVPB Q24H [facility] Last Admin: 03/15/17 19:24 Dose: 166.7 mls/hr Rosuvastatin Calcium (Crestor) 10 mg PO HS [facility] Last Admin: 03/15/17 21:19 Dose: 10 mg Tamsulosin HCl (Flomax) 0.4 mg PO DAILY [facility] Last Admin: 03/15/17 10:17 Dose: 0.4 mg - Labs Labs: 03/15/17 08:16 03/15/17 08:16 PT 16.0 SECONDS (9.7-12.2) H 03/13/17 21:00 INR 1.4 03/13/17 21:00 APTT 35 SECONDS (21-34) H 03/13/17 21:00
[2017-03-16 10:10] LABS: BLOOD UREA NITROGEN 8 mg/dL (9-20); CALCIUM 7.3 mg/dl (8.6-10.4); GFR AFRICAN-AMERICAN > 60; GFR NON-AFRICAN AMERICAN > 60
--- NOTE | 2017-03-16 12:46 | VASCLAB ---
PROCEDURE: Left Lower Extremity Arterial Exam. HISTORY: nonhealing left foot ulcer COMPARISON: None available. TECHNIQUE: Grayscale and duplex Doppler evaluation of the left common femoral, femoral, profunda femoral, popliteal, posterior tibial, anterior tibial and dorsalis pedis arteries was performed. Report prepared by MARTINA Lechuga, RVT FINDINGS: LEFT LOWER EXTREMITY: * Common Femoral Artery: Peak Systolic Velocity - 111: Doppler Waveform: Triphasic.: Plaque description - Calcific * Profunda Femoral Artery: Peak Systolic Velocity - 70: Doppler Waveform: Triphasic.: Plaque description - Calcific * Femoral Artery o Proximal Segment: Peak Systolic Velocity - 78: Doppler Waveform: Triphasic.: Plaque description - Calcific o Middle Segment: Peak Systolic Velocity - 53: Doppler Waveform: Triphasic.: Plaque description - Calcific o Distal Segment: Peak Systolic Velocity - 44: Doppler Waveform: Triphasic.: Plaque description - Calcific * Popliteal Artery o Proximal Segment: Peak Systolic Velocity - 62: Doppler Waveform: Triphasic.: Plaque description - Calcific o Middle Segment: Peak Systolic Velocity - 48: Doppler Waveform: Triphasic.: Plaque description - Calcific o Distal Segment: Peak Systolic Velocity - 67: Doppler Waveform: Biphasic: Plaque description - Calcific * Posterior Tibial Artery: Peak Systolic Velocity - 58: Doppler Waveform: Biphasic: Plaque description - Calcific * Anterior Tibial Artery: Peak Systolic Velocity - 0: Doppler Waveform: Absent: Plaque description - Calcific * Dorsalis Pedis Artery: Peak Systolic Velocity - 0: Doppler Waveform: Absent: Plaque description - Calcific OTHER FINDINGS: Technically difficult study due to sever calcified arterial goodrich. IMPRESSION: LEFT: Possible occlusion of the left mid to distal anterior tibial and dorsalis pedis arteries.
--- NOTE | 2017-03-16 13:15 | CP.PCM.PN ---
Subjective - Date & Time of Evaluation Date of Evaluation: 03/16/17 Time of Evaluation: 13:12 - Subjective Subjective: appears same No nausea, vomiting, SOB, diarrhea, CPs Given 1 dose tovalptan 03/15 Na-126- acceptable continue to monitor Na levels Objective - Vital Signs/Intake and Output Vital Signs (last 24 hours): Temp Pulse Resp BP Pulse Ox 99.3 F 97 H 18 122/68 96 03/16/17 08:53 03/16/17 08:53 03/16/17 08:53 03/16/17 08:53 03/16/17 08:53 Intake and Output: 03/16/17 03/16/17 06:59 18:59 Intake Total 200 Output Total 800 750 Balance -600 -750 - Medications Medications: Current Medications Acetaminophen (Tylenol 325mg Tab) 650 mg PO Q6H PRN PRN Reason: Pain, moderate (4-7) Last Admin: 03/06/17 09:34 Dose: 650 mg Famotidine (Pepcid) 20 mg PO DAILY [facility] Last Admin: 03/16/17 09:53 Dose: 20 mg Vancomycin HCl 1 gm/ Sodium (Chloride) 200 mls @ 166.7 mls/hr IVPB Q24H [facility] Last Admin: 03/15/17 19:24 Dose: 166.7 mls/hr Rosuvastatin Calcium (Crestor) 10 mg PO HS [facility] Last Admin: 03/15/17 21:19 Dose: 10 mg Tamsulosin HCl (Flomax) 0.4 mg PO DAILY [facility] Last Admin: 03/16/17 09:53 Dose: 0.4 mg - Labs Labs: 03/15/17 08:16 03/16/17 08:26 PT 16.0 SECONDS (9.7-12.2) H 03/13/17 21:00 INR 1.4 03/13/17 21:00 APTT 35 SECONDS (21-34) H 03/13/17 21:00 - Constitutional Appears: No Acute Distress, Chronically Ill - Head Exam Head Exam: ATRAUMATIC, NORMAL INSPECTION - Eye Exam Eye Exam: EOMI, Normal appearance - Neck Exam Neck Exam: Normal Inspection. absent: Tenderness - Respiratory Exam Respiratory Exam: Clear to Ausculation Bilateral, NORMAL BREATHING PATTERN - Cardiovascular Exam Cardiovascular Exam: REGULAR RHYTHM, +S1 - GI/Abdominal Exam GI & Abdominal Exam: Soft. absent: Tenderness - Extremities Exam Extremities Exam: Normal Inspection. 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
--- NOTE | 2017-03-16 19:04 | PCM.URO ---
Urology Progress Note - General General: No Complaints, Tolerating Diet - Subjective Abdominal Pain: No Flank Pain: No Vomiting: No Dsypnea: No Chest Pain: No Fever & Chills: No - Objective Lab Results Last 24 Hours: Laboratory Results - last 24 hr 03/16/17 08:26 Sodium 126 L Potassium 3.5 L Chloride 98 Carbon Dioxide 24 Anion Gap 8 L BUN 8 L Creatinine 0.5 L Est GFR ( Amer) > 60 Est GFR (Non-Af Amer) > 60 Random Glucose 78 Calcium 7.3 L Intake & Output: Intake & Output 03/16/17 03/16/17 03/17/17 06:59 18:59 06:59 Intake Total 200 Output Total 800 1150 Balance -600 -1150 Intake: Intake, IV Amount 200 Right Hand 200 Output: Urine 800 1150 2-way Urethral 800 Urethral ([place]) 1150 Other: # Bowel Movements 1 Vital Signs: Vital Signs - 24 hr 03/15/17 03/16/17 03/16/17 23:59 08:53 15:00 Temperature 98.9 F 99.3 F 99.0 F Pulse Rate 101 H 97 H 93 H Respiratory 20 18 20 Rate Blood Pressure 123/65 122/68 110/56 L O2 Sat by Pulse 96 96 95 Oximetry - Physical Exam Abdominal Exam: Soft, Non-Tender, Non-Distended Bowel Sounds: Normal Back: No CVA Tenderness Genitalia: Without Inflammation Urinary Catheter Draining Well: Yes Urine Color: Clear, Yellow Extremities: Normal: Bilateral - Male Phallus: Normal Scrotum: Normal - Plan Catheter Care: Yes Intake & Output: Yes Additional Information: Imp: progressing well. P/Rec: trial of voiding t/f - Date & Time of Note Date: 03/16/17 Time: 12:15
--- NOTE | 2017-03-16 19:42 | CP.PCM.CON ---
History of Present Illness - History of Present Illness History of Present Illness: Vascular Surgery Consult Note for Dr. Tate Reason for Consult: Left foot ulcer, PVD 81 M with PMH of Prostate CA, PVD, HTN, Hyperlipidemia, carotid stenosis, EtOH abuse and COPD presents for Left foot ulcer. Patient was admitted on 03/02 for UTI anbd renal insufficiency. Podiatry has been following patient and requested vascular consult for abnormal arterial duplex which shows possible occlusion of anterior tibial artery and dorsalis pedis artery on left leg. Patient is poor historian. Patient states that he does not know exactly when the ulcer appeared. He reports that it has been present for a few months. He states that it has gradually been getting worse. Patient states he has mild pain. He describes pain as constant and aching located on Left heel without radiation.Denies trauma. Denies exacerbating or alleviating factors. Patient has no other complaints besides the pain. PMH: Meds: As per EMR Allergy: NKDA PSH: FH: unknown Social: denies smoking, history of heavy drinking, denies illicit drug use Review of Systems - Review of Systems All systems: reviewed and no additional remarkable complaints except (as per HPI ) Past Patient History - Infectious Disease Hx of Infectious Diseases: None - Past Medical History & Family History Past Medical History?: No - Past Social History Smoking Status: Light Smoker < 10 Cigarettes Daily Chewing Tobacco Use: No Cigar Use: No Alcohol: None Drugs: Denies Home Situation {Lives}: Long Term - CARDIAC Hx Hypertension: Yes - PULMONARY Hx Chronic Obstructive Pulmonary Disease (COPD): Yes - NEUROLOGICAL HX Cerebrovascular Accident: Yes (7 YEARS AGO) - HEENT Hx HEENT Problems: No - RENAL Hx Chronic Kidney Disease: No - ENDOCRINE/METABOLIC Hx Endocrine Disorders: No - HEMATOLOGICAL/ONCOLOGICAL Hx Blood Disorders: No Hx Blood Transfusions: Yes Hx Blood Transfusion Reaction: No - INTEGUMENTARY Hx Dermatological Problems: No - MUSCULOSKELETAL/RHEUMATOLOGICAL Hx Falls: Yes - GASTROINTESTINAL Hx Gastrointestinal Disorders: No - GENITOURINARY/GYNECOLOGICAL Hx Genitourinary Disorders: Yes Hx Prostate Cancer: Yes Other/Comment: uropathy, UTI - PSYCHIATRIC Hx Substance Use: No - SURGICAL HISTORY Hx Surgeries: No Hx Cardiac Catheterization: Yes (x2) Other/Comment: hx of prostate biopsy 11/2016. lt.hip surgery w/pins - ANESTHESIA Hx Anesthesia: Yes Hx Anesthesia Reactions: No Hx Malignant Hyperthermia: No Meds Allergies/Adverse Reactions: Allergies Allergy/AdvReac Type Severity Reaction Status Date / Time No Known Allergies Allergy Verified 12/30/16 11:26 - Medications Medications: Current Medications Acetaminophen (Tylenol 325mg Tab) 650 mg PO Q6H PRN PRN Reason: Pain, moderate (4-7) Last Admin: 03/06/17 09:34 Dose: 650 mg Famotidine (Pepcid) 20 mg PO DAILY [facility] Last Admin: 03/16/17 09:53 Dose: 20 mg Vancomycin HCl 1 gm/ Sodium (Chloride) 200 mls @ 166.7 mls/hr IVPB Q24H [facility] Last Admin: 03/15/17 19:24 Dose: 166.7 mls/hr Rosuvastatin Calcium (Crestor) 10 mg PO HS [facility] Last Admin: 03/15/17 21:19 Dose: 10 mg Tamsulosin HCl (Flomax) 0.4 mg PO DAILY [facility] Last Admin: 03/16/17 09:53 Dose: 0.4 mg Physical Exam - Constitutional Appears: No Acute Distress, Cachectic - Head Exam Head Exam: ATRAUMATIC, NORMOCEPHALIC - Eye Exam Eye Exam: Normal appearance - ENT Exam ENT Exam: Mucous Membranes Dry - Respiratory Exam Respiratory Exam: NORMAL BREATHING PATTERN - Cardiovascular Exam Cardiovascular Exam: REGULAR RHYTHM - GI/Abdominal Exam GI & Abdominal Exam: Normal Bowel Sounds, Soft. absent: Tenderness - Exam Additional comments: sparrow in place - Extremities Exam Additional comments: LLE: warm to touch, normal color, tenderness to palpation, left PT/popliteal found via doppler, podiatric bandage clean,dry, and intact - Neurological Exam Neurological exam: Alert - Psychiatric Exam Psychiatric exam: Flat Affect - Skin Skin Exam: Dry, Warm Results - Vital Signs Recent Vital Signs: Last Vital Signs Temp 99.0 F 03/16/17 15:00 Pulse 93 H 03/16/17 15:00 Resp 20 03/16/17 15:00 BP 110/56 L 03/16/17 15:00 Pulse Ox 95 03/16/17 15:00 - Labs Result Diagrams: 03/15/17 08:16 03/16/17 08:26 Labs: Laboratory Results - last 24 hr 03/16/17 08:26 Sodium 126 L Potassium 3.5 L Chloride 98 Carbon Dioxide 24 Anion Gap 8 L BUN 8 L Creatinine 0.5 L Est GFR ( Amer) > 60 Est GFR (Non-Af Amer) > 60 Random Glucose 78 Calcium 7.3 L Assessment & Plan - Assessment and Plan (Free Text) Plan: 81 M with PVD and left foot ulcer -Arterial duplex suggests occlusion of L anterior tibial and L DP artery -f/u CTA -Analgesics PRN -Dressing changes as per podiatry -Management as per primary -Discussed with Dr. Bebeto Emerson PGY1
[2017-03-16] MEDS: Vancomycin 1 GM in Sodium Chloride 0.9% 200 ML IVPB SCH (21:10)
--- NOTE | 2017-03-16 23:05 | CP.PCM.PN ---
Subjective - Date & Time of Evaluation Date of Evaluation: 03/16/17 Time of Evaluation: 23:05 - Subjective Subjective: CHIEF COMPLAINTS TODAY : S/P TURP 03/14/17 afebrile, ROMERO DRAINING CLEAR URINE OFFERS NO NEW COMPLAINTS SEEN BY VASCULAR SURGERY FOR PVD ROS. HEENT : N. Resp : No cough, wheezing ,pleuritic CP ,or hemoptysis Cardio : No anginal CP, PND, orthopnea, palpitation GI : No abd.pain, n/v ,diarrhea or GI bleeding . HAND BENDER : No headache, vertigo, focal deficit. Musculoskel : No joint swelling , Derm : No rash Psych : Normal affect. Ext : No swelling ,calf pain PE. Pt. is alert awake in no distress. V.S As noted in the chart Head ,ear nose,throat and eyes : Normal. Neck : Supple with normal carotids. Lungs: Clear air entry. Heart : S1 & S2 normal with S4. No murmur. Abd : Soft non tender with normal bowel sounds. Neuro : Moves all ext. with no localized deficit. Ext : No edema with intact pulses.Non tender calves LT, FOOT IN DRY DRESSING/ MULTIPODUS BOOTS Derm : No rashes or decubitus ulcer. LABS/RADIOLOGY: reviewed. REPEAT URINE CULTURE 03/08/17 -VE GROWTH. repeat urine culture 03/06/17 -ve growth. urine culture +ve MRSA RENAL FUNCTION STABLE. ASSESSMENT S/P TURP S/P SEPSIS SEC. UTI/CHRONIC Romero +VE MRSA HX . URINARY RETENTION CA OF PROSTATE. HYPONATREMIIA HTN. lEFT FOOT DECUBITUS ULCER-UNSTAGEABLE. /PLAN : CONTINUE iv VANCOMYCIN 1 G ONCE A DAY DAILY.03/03/17 -DAY 13 DC VANCOMYCIN ON REMOVAL OF ROMERO PER LT FOOT ULCER -DRY. PER PODIATRY. DC CONTACT PRECAUTIONS. Objective - Vital Signs/Intake and Output Vital Signs (last 24 hours): Temp Pulse Resp BP Pulse Ox 99.0 F 93 H 20 110/56 L 95 03/16/17 15:00 03/16/17 15:00 03/16/17 15:00 03/16/17 15:00 03/16/17 15:00 Intake and Output: 03/16/17 03/17/17 18:59 06:59 Intake Total 250 Output Total 1650 Balance -1400 - Medications Medications: Current Medications Acetaminophen (Tylenol 325mg Tab) 650 mg PO Q6H PRN PRN Reason: Pain, moderate (4-7) Last Admin: 03/06/17 09:34 Dose: 650 mg Famotidine (Pepcid) 20 mg PO DAILY [facility] Last Admin: 03/16/17 09:53 Dose: 20 mg Vancomycin HCl 1 gm/ Sodium (Chloride) 200 mls @ 166.7 mls/hr IVPB Q24H [facility] Last Admin: 03/16/17 21:10 Dose: 166.7 mls/hr Rosuvastatin Calcium (Crestor) 10 mg PO HS [facility] Last Admin: 03/16/17 21:15 Dose: 10 mg Tamsulosin HCl (Flomax) 0.4 mg PO DAILY [facility] Last Admin: 03/16/17 09:53 Dose: 0.4 mg - Labs Labs: 03/15/17 08:16 03/16/17 08:26 PT 16.0 SECONDS (9.7-12.2) H 03/13/17 21:00 INR 1.4 03/13/17 21:00 APTT 35 SECONDS (21-34) H 03/13/17 21:00
--- NOTE | 2017-03-17 08:51 | CP.PCM.PN ---
Subjective - Date & Time of Evaluation Date of Evaluation: 03/17/17 Time of Evaluation: 07:00 - Subjective Subjective: surgical progress note: Patient was seen and examined at bedside in the AM. Per nurse no acute events at this time. Patient states he continues to have pain in his lower extremity. Patient denies any other complaints at this time. Objective - Vital Signs/Intake and Output Vital Signs (last 24 hours): Temp Pulse Resp BP Pulse Ox 98.5 F 115 H 18 145/78 96 03/17/17 07:45 03/17/17 07:45 03/17/17 07:45 03/17/17 07:45 03/17/17 07:45 Intake and Output: 03/17/17 03/17/17 06:59 18:59 Intake Total 210 Output Total 600 Balance -390 - Medications Medications: Current Medications Acetaminophen (Tylenol 325mg Tab) 650 mg PO Q6H PRN PRN Reason: Pain, moderate (4-7) Last Admin: 03/06/17 09:34 Dose: 650 mg Famotidine (Pepcid) 20 mg PO DAILY [facility] Last Admin: 03/16/17 09:53 Dose: 20 mg Vancomycin HCl 1 gm/ Sodium (Chloride) 200 mls @ 166.7 mls/hr IVPB Q24H [facility] Last Admin: 03/16/17 21:10 Dose: 166.7 mls/hr Rosuvastatin Calcium (Crestor) 10 mg PO HS [facility] Last Admin: 03/16/17 21:15 Dose: 10 mg Tamsulosin HCl (Flomax) 0.4 mg PO DAILY [facility] Last Admin: 03/16/17 09:53 Dose: 0.4 mg - Labs Labs: 03/15/17 08:16 03/16/17 08:26 PT 16.0 SECONDS (9.7-12.2) H 03/13/17 21:00 INR 1.4 03/13/17 21:00 APTT 35 SECONDS (21-34) H 03/13/17 21:00 - Constitutional Appears: No Acute Distress - Head Exam Head Exam: ATRAUMATIC, NORMAL INSPECTION - Eye Exam Eye Exam: EOMI, Normal appearance - ENT Exam ENT Exam: Mucous Membranes Moist - Respiratory Exam Respiratory Exam: NORMAL BREATHING PATTERN - Cardiovascular Exam Cardiovascular Exam: +S1, +S2 - GI/Abdominal Exam GI & Abdominal Exam: Soft, Normal Bowel Sounds. absent: Tenderness - Extremities Exam Extremities Exam: Normal Inspection - Neurological Exam Neurological Exam: Alert, Awake - Skin Additional comments: LLE: warm to touch, normal color, tenderness to palpation, bandage clean,dry, and intact Assessment and Plan - Assessment and Plan (Free Text) Assessment: 81 M with PVD and left foot ulcer -Arterial duplex suggests occlusion of L anterior tibial and L DP artery -f/u CTA -Analgesics PRN -Dressing changes as per podiatry -Management as per primary Vee Pitts PGY-1
[2017-03-17] MEDS ORDERED: Potassium Chloride 20 mEq/15 ml LIQ UD PO STA (11:56)
--- NOTE | 2017-03-17 13:49 | CP.PCM.PN ---
<Jenniffer Martinoa - Last Filed: 03/17/17 13:46> Subjective - Date & Time of Evaluation Date of Evaluation: 03/17/17 Time of Evaluation: 13:46 - Subjective Subjective: 81 y/o male seen at bedside with attending Dr. Celeste for left foot unstageable ulceration. Patient denies any acute events overnight. Patient states that he has mild pain and tenderness to the area. Patient denies any other pedal complaints at this time. Denies n/f/v/d/c/sob. Objective - Vital Signs/Intake and Output Vital Signs (last 24 hours): Temp Pulse Resp BP Pulse Ox 98.5 F 115 H 18 145/78 96 03/17/17 07:45 03/17/17 07:45 03/17/17 07:45 03/17/17 07:45 03/17/17 07:45 Intake and Output: 03/17/17 03/17/17 06:59 18:59 Intake Total 210 Output Total 600 Balance -390 - Medications Medications: Current Medications Acetaminophen (Tylenol 325mg Tab) 650 mg PO Q6H PRN PRN Reason: Pain, moderate (4-7) Last Admin: 03/06/17 09:34 Dose: 650 mg Famotidine (Pepcid) 20 mg PO DAILY [facility] Last Admin: 03/17/17 11:28 Dose: 20 mg Vancomycin HCl 1 gm/ Sodium (Chloride) 200 mls @ 166.7 mls/hr IVPB Q24H [facility] Last Admin: 03/16/17 21:10 Dose: 166.7 mls/hr Rosuvastatin Calcium (Crestor) 10 mg PO HS [facility] Last Admin: 03/16/17 21:15 Dose: 10 mg Tamsulosin HCl (Flomax) 0.4 mg PO DAILY [facility] Last Admin: 03/17/17 11:28 Dose: 0.4 mg - Labs Labs: 03/15/17 08:16 03/16/17 08:26 PT 16.0 SECONDS (9.7-12.2) H 03/13/17 21:00 INR 1.4 03/13/17 21:00 APTT 35 SECONDS (21-34) H 03/13/17 21:00 - Constitutional Appears: Well, Non-toxic, No Acute Distress - Extremities Exam Additional comments: Left lower extremity exam Vasc: Non-palpable DP and PT noted bilaterally. OIL WELL PUMPER <3 sec to all digits Derm: Unstageable decubitus ulceration to heel measuring 5cm x 4cm with no drainage. No PTB, no fluctuance, no malodor noted. No sign of acute infection is noted. No interdigital maceration noted. Additional unstageagle ulceration noted to lateral aspect of 5th metatarsal head measuring 1.3cmx 1.0cm with fibrous base, + probe to bone. Mild serosanguinous drainage noted. no malodor noted. No fluctuance. Ortho: Pain on palpation to heel at the site of ulceration. No pain induced on palpation to lateral 5th metatarsal head Neuro: Gross sensation intact - Neurological Exam Neurological Exam: Alert, Awake, Oriented x3 Assessment and Plan - Assessment and Plan (Free Text) Assessment: 81 yo male patient presents with unstageable decubitus ulcerations to left heel and left lateral 5th metatarsal head Plan: Patient seen and evaluated at bedside with attending Dr. Celeste Labs and Vitals reviewed; afebrile Bone scan of left foot (-) for OM L foot xray 03/04/17: No evidence of OM L foot dressed with betadine soaked gauze, DSD, and multipodus boots applied B/L Continue multipodus boots at all times to prevent new/worsening decubitus ulcerations No surgical intervention planned at this time OZIEL/PVR show possible occlusion of left anterior tibial and DP arteries vasc consult appreciated- f/u CTA Podiatry will continue to follow while patient in house <Nathaniel Celeste - Last Filed: 03/17/17 21:04> Objective - Vital Signs/Intake and Output Vital Signs (last 24 hours): Temp Pulse Resp BP Pulse Ox 98.3 F 102 H 18 90/53 L 98 03/17/17 20:30 03/17/17 20:30 03/17/17 20:30 03/17/17 20:30 03/17/17 20:30 Intake and Output: 03/17/17 03/18/17 18:59 06:59 Intake Total 550 Output Total 200 Balance 350 - Medications Medications: Current Medications Acetaminophen (Tylenol 325mg Tab) 650 mg PO Q6H PRN PRN Reason: Pain, moderate (4-7) Last Admin: 03/06/17 09:34 Dose: 650 mg Famotidine (Pepcid) 20 mg PO DAILY [facility] Last Admin: 03/17/17 11:15 Dose: Not Given Vancomycin HCl 1 gm/ Sodium (Chloride) 200 mls @ 166.7 mls/hr IVPB Q24H [facility] Last Admin: 03/16/17 21:10 Dose: 166.7 mls/hr Piperacillin Sod/Tazobactam Sod (Zosyn 3.375 Gm Iv Premix) 3.375 gm in 50 mls @ 100 mls/hr IVPB Q6H [facility] Last Admin: 03/17/17 19:55 Dose: 100 mls/hr Sodium Chloride (Sodium Chloride 0.9%) 1,000 mls @ 100 mls/hr IV .Q10H [facility] Rosuvastatin Calcium (Crestor) 10 mg PO HS [facility] Last Admin: 03/16/17 21:15 Dose: 10 mg Tamsulosin HCl (Flomax) 0.4 mg PO DAILY [facility] Last Admin: 03/17/17 11:15 Dose: Not Given - Labs Labs: 03/17/17 19:35 03/16/17 08:26 PT 16.0 SECONDS (9.7-12.2) H 03/13/17 21:00 INR 1.4 03/13/17 21:00 APTT 35 SECONDS (21-34) H 03/13/17 21:00 Assessment and Plan - Assessment and Plan (Free Text) Plan: pt seen at bedside with resident and examined . labs and chart reviewed . treatment plan directed by me . We are waiting for vascular plan .agree with above note . DR CELESTE
[2017-03-17] MEDS ORDERED: Sodium Chloride 0.9% 500 ML IV SCH (18:15)
[2017-03-17] MEDS ORDERED: Iodixanol 320 mg/ml 150 ml Bottle IV ONE (18:30)
[2017-03-17 19:40] LABS: BASO % 0.9 % (0.0-2.0); HEMOGLOBIN 9.7 g/dL (12.0-18.0); LYMPH # 0.7 K/uL (1.0-4.3); MEAN CELL VOLUME 86.2 fL (80.0-94.0); MEAN CORPUSCULAR HEMOGLOBIN 28.1 pg (27.0-31.0); MEAN CORPUSCULAR HGB CONC 32.7 g/dL (33.0-37.0); MEAN PLATELET VOLUME 7.2 fL (7.2-11.7); MONO # 0.3 K/uL (0.0-0.8); MONO % 11.9 % (0.0-10.0); NEUT # 1.8 K/uL (1.8-7.0); NEUT % 64.2 % (50.0-75.0); NRBC % 0.2 % (0.0-2.0); RBC 3.43 Mil/uL (4.40-5.90); WHITE BLOOD COUNT 2.9 K/uL (4.8-10.8)
[2017-03-17] MEDS: Piperacill/Tazo 3.375gm in Dex 3.375 GM/50 ML BAG IVPB SCH (19:55)
[2017-03-17] MEDS: Sodium Chloride 0.9% 1,000 ML IV SCH (21:46)
[2017-03-17] MEDS: Vancomycin 1 GM in Sodium Chloride 0.9% 200 ML IVPB SCH (21:47)
[2017-03-17 22:12] LABS: ABG ALLEN TEST YES; ARTERIAL BLOOD GAS HCO3 22.9 mmol/L (21-28); ARTERIAL BLOOD GAS O2 SAT 98.8 % (95-98); ARTERIAL BLOOD GAS PCO2 26 mm/Hg (35-45); ARTERIAL BLOOD GAS PH 7.48 (7.35-7.45); ARTERIAL BLOOD GAS PO2 79 mm/Hg (80-100); ARTERIAL BLOOD GAS TCO2 20.2 mmol/L (22-28)
--- NOTE | 2017-03-17 22:29 | CP.PCM.PN ---
Subjective - Date & Time of Evaluation Date of Evaluation: 03/17/17 Time of Evaluation: 22:29 - Subjective Subjective: CHIEF COMPLAINTS TODAY : S/P TURP 03/14/17 LOW GRADE FEVER 100.8, BP 92/[address] DURBIN 03/17/17 C/O WEAKNESS ROS. HEENT : N. Resp : No cough, wheezing ,pleuritic CP ,or hemoptysis Cardio : No anginal CP, PND, orthopnea, palpitation GI : No abd.pain, n/v ,diarrhea or GI bleeding . ROBOTIC WELD TECHNICIAN : No headache, vertigo, focal deficit. Musculoskel : No joint swelling , Derm : No rash Psych : Normal affect. Ext : No swelling ,calf pain PE. Pt. is alert awake in no distress. V.S As noted in the chart Head ,ear nose,throat and eyes : Normal. Neck : Supple with normal carotids. Lungs: Clear air entry. Heart : S1 & S2 normal with S4. No murmur. Abd : Soft non tender with normal bowel sounds. Neuro : Moves all ext. with no localized deficit. Ext : No edema with intact pulses.Non tender calves LT, FOOT IN DRY DRESSING/ MULTIPODUS BOOTS Derm : No rashes or decubitus ulcer. LABS/RADIOLOGY: reviewed. WBC 2.9 H/H 9.7 03/17/17 REPEAT URINE CULTURE 03/08/17 -VE GROWTH. repeat urine culture 03/06/17 -ve growth. urine culture +ve MRSA RENAL FUNCTION STABLE. ASSESSMENT S/P TURP- NEW FEVER S/P SEPSIS SEC. UTI/CHRONIC Romero +VE MRSA HX . URINARY RETENTION CA OF PROSTATE. HYPONATREMIIA HTN. lEFT FOOT DECUBITUS ULCER-UNSTAGEABLE. /PLAN : DC iv VANCOMYCIN 1 G ONCE A DAY DAILY.03/03/17 -DAY 14 DECREASE IV ZOSYN 2.25 MG IV Q8HRLY. 03/17/17 LT FOOT ULCER -DRY. PER PODIATRY. DC CONTACT PRECAUTIONS. Objective - Vital Signs/Intake and Output Vital Signs (last 24 hours): Temp Pulse Resp BP Pulse Ox 98.3 F 102 H 18 90/53 L 98 03/17/17 20:30 03/17/17 20:30 03/17/17 20:30 03/17/17 20:30 03/17/17 20:30 Intake and Output: 03/17/17 03/18/17 18:59 06:59 Intake Total 550 Output Total 200 Balance 350 - Medications Medications: Current Medications Acetaminophen (Tylenol 325mg Tab) 650 mg PO Q6H PRN PRN Reason: Pain, moderate (4-7) Last Admin: 03/06/17 09:34 Dose: 650 mg Famotidine (Pepcid) 20 mg PO DAILY [facility] Last Admin: 03/17/17 11:15 Dose: Not Given Vancomycin HCl 1 gm/ Sodium (Chloride) 200 mls @ 166.7 mls/hr IVPB Q24H [facility] Last Admin: 03/17/17 21:47 Dose: 166.7 mls/hr Piperacillin Sod/Tazobactam Sod (Zosyn 3.375 Gm Iv Premix) 3.375 gm in 50 mls @ 100 mls/hr IVPB Q6H [facility] Last Admin: 03/17/17 19:55 Dose: 100 mls/hr Sodium Chloride (Sodium Chloride 0.9%) 1,000 mls @ 100 mls/hr IV .Q10H [facility] Last Admin: 03/17/17 21:46 Dose: 100 mls/hr Rosuvastatin Calcium (Crestor) 10 mg PO HS [facility] Last Admin: 03/17/17 21:47 Dose: Not Given Tamsulosin HCl (Flomax) 0.4 mg PO DAILY [facility] Last Admin: 03/17/17 11:15 Dose: Not Given - Labs Labs: 03/17/17 19:35 03/16/17 08:26 PT 16.0 SECONDS (9.7-12.2) H 03/13/17 21:00 INR 1.4 03/13/17 21:00 APTT 35 SECONDS (21-34) H 03/13/17 21:00
--- NOTE | 2017-03-17 23:22 | CP.PCM.PN ---
Subjective - Date & Time of Evaluation Date of Evaluation: 03/16/17 Time of Evaluation: 19:00 - Subjective Subjective: Pt seen and examined S/P TURP 03/14/17 afebrile, VARGAS DRAINING CLEAR URINE OFFERS NO NEW COMPLAINTS SEEN BY VASCULAR SURGERY FOR PVD Objective - Vital Signs/Intake and Output Vital Signs (last 24 hours): Temp Pulse Resp BP Pulse Ox 98.3 F 102 H 18 90/53 L 98 03/17/17 20:30 03/17/17 20:30 03/17/17 20:30 03/17/17 20:30 03/17/17 20:30 Intake and Output: 03/17/17 03/18/17 18:59 06:59 Intake Total 550 Output Total 200 Balance 350 - Medications Medications: Current Medications Acetaminophen (Tylenol 325mg Tab) 650 mg PO Q6H PRN PRN Reason: Pain, moderate (4-7) Last Admin: 03/06/17 09:34 Dose: 650 mg Famotidine (Pepcid) 20 mg PO DAILY [facility] Last Admin: 03/17/17 11:15 Dose: Not Given Vancomycin HCl 1 gm/ Sodium (Chloride) 200 mls @ 166.7 mls/hr IVPB Q24H [facility] Last Admin: 03/17/17 21:47 Dose: 166.7 mls/hr Piperacillin Sod/Tazobactam Sod (Zosyn 3.375 Gm Iv Premix) 3.375 gm in 50 mls @ 100 mls/hr IVPB Q6H [facility] Last Admin: 03/17/17 19:55 Dose: 100 mls/hr Sodium Chloride (Sodium Chloride 0.9%) 1,000 mls @ 100 mls/hr IV .Q10H [facility] Last Admin: 03/17/17 21:46 Dose: 100 mls/hr Rosuvastatin Calcium (Crestor) 10 mg PO HS [facility] Last Admin: 03/17/17 21:47 Dose: Not Given Tamsulosin HCl (Flomax) 0.4 mg PO DAILY [facility] Last Admin: 03/17/17 11:15 Dose: Not Given - Labs Labs: 03/17/17 19:35 03/16/17 08:26 PT 16.0 SECONDS (9.7-12.2) H 03/13/17 21:00 INR 1.4 03/13/17 21:00 APTT 35 SECONDS (21-34) H 03/13/17 21:00 Assessment and Plan (1) CA prostate, adenoca Status: Acute (2) Sepsis Status: Acute (3) UTI (urinary tract infection) Status: Acute (4) Acute urinary retention Status: Acute (5) CAD (coronary artery disease) Status: Acute (6) Hyponatremia Status: Acute (7) S/P TURP (status post transurethral resection of prostate) Status: Acute
--- NOTE | 2017-03-17 23:25 | CP.PCM.PN ---
Subjective - Date & Time of Evaluation Date of Evaluation: 03/17/17 Time of Evaluation: 18:30 - Subjective Subjective: pt seen and evaluated, developed weakness, fever, B.P dropped, low hb, he is awake Objective - Vital Signs/Intake and Output Vital Signs (last 24 hours): Temp Pulse Resp BP Pulse Ox 98.3 F 102 H 18 90/53 L 98 03/17/17 20:30 03/17/17 20:30 03/17/17 20:30 03/17/17 20:30 03/17/17 20:30 Intake and Output: 03/17/17 03/18/17 18:59 06:59 Intake Total 550 Output Total 200 Balance 350 - Medications Medications: Current Medications Acetaminophen (Tylenol 325mg Tab) 650 mg PO Q6H PRN PRN Reason: Pain, moderate (4-7) Last Admin: 03/06/17 09:34 Dose: 650 mg Famotidine (Pepcid) 20 mg PO DAILY [facility] Last Admin: 03/17/17 11:15 Dose: Not Given Vancomycin HCl 1 gm/ Sodium (Chloride) 200 mls @ 166.7 mls/hr IVPB Q24H [facility] Last Admin: 03/17/17 21:47 Dose: 166.7 mls/hr Piperacillin Sod/Tazobactam Sod (Zosyn 3.375 Gm Iv Premix) 3.375 gm in 50 mls @ 100 mls/hr IVPB Q6H [facility] Last Admin: 03/17/17 19:55 Dose: 100 mls/hr Sodium Chloride (Sodium Chloride 0.9%) 1,000 mls @ 100 mls/hr IV .Q10H [facility] Last Admin: 03/17/17 21:46 Dose: 100 mls/hr Rosuvastatin Calcium (Crestor) 10 mg PO HS [facility] Last Admin: 03/17/17 21:47 Dose: Not Given Tamsulosin HCl (Flomax) 0.4 mg PO DAILY [facility] Last Admin: 03/17/17 11:15 Dose: Not Given - Labs Labs: 03/17/17 19:35 03/16/17 08:26 PT 16.0 SECONDS (9.7-12.2) H 03/13/17 21:00 INR 1.4 03/13/17 21:00 APTT 35 SECONDS (21-34) H 03/13/17 21:00 - Constitutional Appears: No Acute Distress - Head Exam Head Exam: ATRAUMATIC, NORMAL INSPECTION, NORMOCEPHALIC - Eye Exam Eye Exam: EOMI, Normal appearance, PERRL Pupil Exam: NORMAL ACCOMODATION, PERRL - Respiratory Exam Respiratory Exam: Clear to Ausculation Bilateral, NORMAL BREATHING PATTERN - Cardiovascular Exam Cardiovascular Exam: REGULAR RHYTHM, +S1, +S2. absent: Murmur - GI/Abdominal Exam GI & Abdominal Exam: Soft, Normal Bowel Sounds. absent: Tenderness Assessment and Plan (1) CA prostate, adenoca Status: Acute (2) Sepsis Status: Acute (3) UTI (urinary tract infection) Status: Acute (4) Acute urinary retention Status: Acute (5) CAD (coronary artery disease) Status: Acute (6) Hyponatremia Status: Acute (7) S/P TURP (status post transurethral resection of prostate) Status: Acute
--- NOTE | 2017-03-18 00:05 | CT ---
EXAM: CT Angiography Abdomen and Pelvis With Runoff to the Lower Extremities With Intravenous Contrast EXAM DATE/TIME: 03/16/2017 8:10 PM CLINICAL HISTORY: 81 years old, male; Condition or disease; Peripheral vascular disease; Additional info: Left foot ulcer, pvd TECHNIQUE: Axial computed tomographic angiography images of the abdomen, pelvis and lower extremities with intravenous contrast using CT angiography protocol. All CT scans at this facility use one or more dose reduction techniques, viz.: automated exposure control; ma/kV adjustment per patient size (including targeted exams where dose is matched to indication; i.e. head); or iterative reconstruction technique. MIP reconstructed images were created and reviewed. Coronal and sagittal reformatted images were created and reviewed. CONTRAST: 150 mL of VISIPAQUE 320 administered intravenously. COMPARISON: No relevant prior studies available. FINDINGS: Calcified pleural plaques are present. The liver, spleen, pancreas, gallbladder and kidneys are normal. Large amount of stool in the rectum with an appearance suggestive of fecal impaction. The rectum measures 7.8 cm in diameter. The urinary bladder wall is thickened and irregular with intraluminal air foci. Findings suggest cystitis. Underlying bladder wall lesion cannot be excluded. Recommend correlation with urinalysis as well as followup. There are atherosclerotic changes of the vasculature with extensive calcification. No aortic aneurysm or dissection. The common iliac, external iliac, arteries are patent. The common femoral arteries are patent. Right lower extremity: The superficial femoral artery is patent. The popliteal artery is patent. Trifurcation of the popliteal artery is noted on series 2 image 357. There is extremely dense rim calcification of the tibial arteries and peroneal artery that surrounds the thin caliber lumen, making it difficult to determine whether there is actually intraluminal contrast (majority of the cross-sectional area is occupied by hyperdense calcification). There appears to be occlusion of the posterior tibial artery. The peroneal artery appears essentially patent although believe there are intermittent areas of occlusion. There areas of occlusion in the proximal anterior tibial artery although I believe intraluminal contrast is present distally. Left lower extremity: The superficial femoral artery is patent. The popliteal artery is patent. Trifurcation of the popliteal artery is seen on image 357. There is extremely dense rim calcification of the tibial arteries and peroneal artery that surrounds the thin caliber lumen, making it difficult to determine whether there is actually intraluminal contrast (majority of the cross-sectional area is occupied by hyperdense calcification). There are areas of occlusion within the proximal tibial vessels and peroneal vessels. Intraluminal contrast is felt to be present in the distal peroneal vein down to the ankle. The distal anterior tibial artery occluded. There is a small amount of the intraluminal contrast identified in the distal posterior tibial artery down to the level of the ankle. Screw in the medial malleolus of the left tibia. IMPRESSION: Patent femoral arteries and popliteal arteries bilaterally. Extremely dense rim calcification of the tibial arteries and peroneal artery that surrounds the thin caliber lumen, making it difficult to determine whether there is actually intraluminal contrast (majority of the cross-sectional area is occupied by hyperdense calcification with little remaining cross-sectional area centrally to identify hyperdense contrast). Similar limitations were discussed in the recent left lower extremity ultrasound report. Areas of occlusion within the trifurcation vessels bilaterally as described in detail above. However there appears to be reconstitution of the peroneal arteries bilaterally as well as reconstitution of the right anterior tibial artery and left posterior tibial artery. Occlusion of the right posterior tibial artery and left anterior tibial artery distally. Thickened irregular wall of the urinary bladder. Fecal impaction of the rectum.
[2017-03-18] MEDS: Piperacill/Tazo 3.375gm in Dex 3.375 GM/50 ML BAG IVPB SCH (00:31)
[2017-03-18] MEDS: Piperacill/Tazo 2.25gm in Dex 2.25 GM/50 ML BAG IVPB SCH ×3 (04:17→20:01)
[2017-03-18] MEDS: Sodium Chloride 0.9% 1,000 ML IV SCH ×2 (06:34→18:36)
--- NOTE | 2017-03-18 08:20 | CP.PCM.PN ---
Subjective - Date & Time of Evaluation Date of Evaluation: 03/18/17 Time of Evaluation: 07:00 - Subjective Subjective: urgical progress note: Patient was seen and examined at bedside in the AM. Per nurse no acute events at this time. Patient states he continues to have pain in his lower extremity. Patient denies any other complaints at this time. Objective - Vital Signs/Intake and Output Vital Signs (last 24 hours): Temp Pulse Resp BP Pulse Ox 99 F 99 H 20 99/52 L 93 L 03/18/17 00:00 03/18/17 00:00 03/18/17 00:00 03/18/17 00:00 03/18/17 00:00 Intake and Output: 03/18/17 03/18/17 06:59 18:59 Intake Total 800 Balance 800 - Medications Medications: Current Medications Acetaminophen (Tylenol 325mg Tab) 650 mg PO Q6H PRN PRN Reason: Pain, moderate (4-7) Last Admin: 03/06/17 09:34 Dose: 650 mg Famotidine (Pepcid) 20 mg PO DAILY [facility] Last Admin: 03/17/17 11:15 Dose: Not Given Sodium Chloride (Sodium Chloride 0.9%) 1,000 mls @ 100 mls/hr IV .Q10H [facility] Last Admin: 03/18/17 06:34 Dose: 100 mls/hr Piperacillin Sod/Tazobactam Sod (Zosyn 2.25 Gm Iv Premix) 2.25 gm in 50 mls @ 100 mls/hr IVPB Q8H [facility] Last Admin: 03/18/17 04:17 Dose: 100 mls/hr Rosuvastatin Calcium (Crestor) 10 mg PO HS [facility] Last Admin: 03/17/17 21:47 Dose: Not Given Tamsulosin HCl (Flomax) 0.4 mg PO DAILY [facility] Last Admin: 03/17/17 11:15 Dose: Not Given - Labs Labs: 03/17/17 19:35 03/16/17 08:26 PT 16.0 SECONDS (9.7-12.2) H 03/13/17 21:00 INR 1.4 03/13/17 21:00 APTT 35 SECONDS (21-34) H 03/13/17 21:00 - Constitutional Appears: No Acute Distress, Cachectic - Head Exam Head Exam: ATRAUMATIC, NORMAL INSPECTION - Eye Exam Eye Exam: EOMI, Normal appearance - ENT Exam ENT Exam: Mucous Membranes Moist - Respiratory Exam Respiratory Exam: NORMAL BREATHING PATTERN - Cardiovascular Exam Cardiovascular Exam: +S1, +S2 - GI/Abdominal Exam GI & Abdominal Exam: Soft, Normal Bowel Sounds. absent: Tenderness - Extremities Exam Extremities Exam: Normal Inspection - Neurological Exam Neurological Exam: Alert, Awake, Oriented x3 - Psychiatric Exam Psychiatric exam: Normal Affect, Normal Mood - Skin Additional comments: LLE: warm to touch, normal color, tenderness to palpation, bandage clean,dry, and intact Assessment and Plan - Assessment and Plan (Free Text) Assessment: 81 M with PVD and left foot ulcer - Arterial duplex suggests occlusion of L anterior tibial and L DP artery - Angiography: Patent femoral arteries and popliteal arteries bilaterally. Extremely dense rim calcification of the tibial arteries and peroneal artery that surrounds the thin caliber lumen, making it difficult to determine whether there is actually intraluminal contrast (majority of the cross-sectional area is occupied by hyperdense calcification with little remaining cross-sectional area centrally to identify hyperdense contrast). Similar limitations were discussed in the recent left lower extremity ultrasound report. Areas of occlusion within the trifurcation vessels bilaterally as described in detail above. However there appears to be reconstitution of the peroneal arteries bilaterally as well as reconstitution of the right anterior tibial artery and left posterior tibial artery. Occlusion of the right posterior tibial artery and left anterior tibial artery distally. -Analgesics PRN -Dressing changes as per podiatry -Management as per primary Vee Pitts PGY-1
[2017-03-18 08:22] LABS: EOS % 0.2 % (0.0-4.0); HEMOGLOBIN 9.2 g/dL (12.0-18.0); LYMPH # 0.7 K/uL (1.0-4.3); LYMPH % 27.9 % (20.0-40.0); MEAN CELL VOLUME 87.2 fL (80.0-94.0); MEAN CORPUSCULAR HEMOGLOBIN 28.9 pg (27.0-31.0); MEAN CORPUSCULAR HGB CONC 33.1 g/dL (33.0-37.0); MEAN PLATELET VOLUME 7.4 fL (7.2-11.7); MONO # 0.2 K/uL (0.0-0.8); NEUT # 1.5 K/uL (1.8-7.0); NEUT % 60.9 % (50.0-75.0); NRBC % 0.2 % (0.0-2.0); RBC 3.18 Mil/uL (4.40-5.90); RED CELL DISTRIBUTION WIDTH 14.9 % (11.5-14.5); WHITE BLOOD COUNT 2.4 K/uL (4.8-10.8)
[2017-03-18 08:36] LABS: BLOOD UREA NITROGEN 13 mg/dL (9-20); CALCIUM 6.9 mg/dl (8.6-10.4); GFR AFRICAN-AMERICAN > 60; GFR NON-AFRICAN AMERICAN > 60; MAGNESIUM 1.6 mg/dL (1.6-2.3)
--- NOTE | 2017-03-18 10:17 | PCM.URO ---
Urology Progress Note - General General: No Complaints, Tolerating Diet - Subjective Abdominal Pain: No Flank Pain: No Nausea: No Vomiting: No Voiding Well: Yes Dysuria: Yes (mild) Hematuria: No [place]: Yes Dsypnea: No Chest Pain: No Fever & Chills: No - Objective Lab Results Last 24 Hours: Laboratory Results - last 24 hr 03/17/17 03/17/17 03/18/17 19:35 22:05 07:51 WBC 2.9 L RBC 3.43 L Hgb 9.7 L Hct 29.6 L MCV 86.2 MCH 28.1 MCHC 32.7 L RDW 15.0 H Plt Count 263 MPV 7.2 Neut % (Auto) 64.2 Lymph % (Auto) 23.0 [place] % (Auto) 11.9 H Eos % (Auto) 0.0 Baso % (Auto) 0.9 Neut # 1.8 Lymph # 0.7 L [place] # 0.3 Eos # 0.0 Baso # 0.0 Puncture Site Rra pCO2 26 L pO2 79 L HCO3 22.9 ABG pH 7.48 H ABG Total CO2 20.2 L ABG O2 Saturation 98.8 H ABG Base Excess -2.6 L Michael Test Yes ABG Potassium 3.2 L A-a O2 Difference 38.0 Respiratory Index 0.5 Sodium 132.0 125 L Chloride 105.0 101 Glucose 84 Lactate 0.8 FiO2 21.0 Potassium 3.1 L Carbon Dioxide 18 L Anion Gap 9 L BUN 13 Creatinine 0.7 L Est GFR ( Amer) > 60 Est GFR (Non-Af Amer) > 60 Random Glucose 109 Calcium 6.9 L Magnesium 1.6 Arterial Blood Potassium 3.2 L Vancomycin Trough 03/18/17 03/18/17 07:51 07:51 WBC 2.4 L RBC 3.18 L Hgb 9.2 L Hct 27.8 L MCV 87.2 MCH 28.9 MCHC 33.1 RDW 14.9 H Plt Count 223 MPV 7.4 Neut % (Auto) 60.9 Lymph % (Auto) 27.9 [place] % (Auto) 10.0 Eos % (Auto) 0.2 Baso % (Auto) 1.0 Neut # 1.5 L Lymph # 0.7 L [place] # 0.2 Eos # 0.0 Baso # 0.0 Puncture Site pCO2 pO2 HCO3 ABG pH ABG Total CO2 ABG O2 Saturation ABG Base Excess Michael Test ABG Potassium A-a O2 Difference Respiratory Index Sodium Chloride Glucose Lactate FiO2 Potassium Carbon Dioxide Anion Gap BUN Creatinine Est GFR ( Amer) Est GFR (Non-Af Amer) Random Glucose Calcium Magnesium Arterial Blood Potassium Vancomycin Trough 18.1 H Intake & Output: Intake & Output 03/17/17 03/18/17 03/18/17 18:59 06:59 18:59 Intake Total 550 800 Output Total 200 Balance 350 800 Intake: Intake, IV Amount 800 Right Hand 800 Oral 550 Output: Urine 200 2-way Urethral 200 Other: # Bowel Movements 0 Vital Signs: Vital Signs - 24 hr 03/17/17 03/17/17 03/18/17 16:29 20:30 00:00 Temperature 100.8 F H 98.3 F 99 F Pulse Rate 122 H 102 H 99 H Respiratory 20 18 20 Rate Blood Pressure 97/57 L 90/53 L 99/52 L O2 Sat by Pulse 95 98 93 L Oximetry 03/18/17 07:35 Temperature 98.0 F Pulse Rate 90 Respiratory 20 Rate Blood Pressure 92/58 L O2 Sat by Pulse 94 L Oximetry - Physical Exam Abdominal Exam: Soft, Non-Tender, Non-Distended Back: No CVA Tenderness Genitalia: Without Inflammation Urine Color: Dark M[place] - Male Phallus: Normal - Plan Additional Information: Imp: doing well p catheter removal. improved re retention. High grade prostate cancer. Rec/plan: hydration. scheduled voiding. consider orchiectomy - Date & Time of Note Date: 03/18/17 Time: 10:17
--- NOTE | 2017-03-18 14:22 | CP.PCM.PN ---
Subjective - Date & Time of Evaluation Date of Evaluation: 03/18/17 Time of Evaluation: 14:22 - Subjective Subjective: CHIEF COMPLAINTS TODAY : S/P TURP 03/14/17 BP 92/57.LOW STATES HE IS RESTING C/O WEAKNESS ROS. HEENT : N. Resp : No cough, wheezing ,pleuritic CP ,or hemoptysis Cardio : No anginal CP, PND, orthopnea, palpitation GI : No abd.pain, n/v ,diarrhea or GI bleeding . 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 Musculoskel : No joint swelling , Derm : No rash Psych : Normal affect. Ext : No swelling ,calf pain PE. Pt. is alert awake in no distress. V.S As noted in the chart Head ,ear nose,throat and eyes : Normal. Neck : Supple with normal carotids. Lungs: Clear air entry. Heart : S1 & S2 normal with S4. No murmur. Abd : Soft non tender with normal bowel sounds. Neuro : Moves all ext. with no localized deficit. Ext : No edema with intact pulses.Non tender calves LT, FOOT IN DRY DRESSING/ MULTIPODUS BOOTS Derm : No rashes or decubitus ulcer. LABS/RADIOLOGY: REPEAT BLOOD CULTURES ON 03/17/17 -VE GROWTH FOR 24 HOURS. REPEAT URINE CULTURE 03/08/17 -VE GROWTH. repeat urine culture 03/06/17 -ve growth. urine culture +ve MRSA RENAL FUNCTION STABLE. vANCO TROUGH 18.1- OKAY ASSESSMENT S/P TURP- NEW FEVER S/P SEPSIS SEC. UTI/CHRONIC Romero +VE MRSA HX . URINARY RETENTION CA OF PROSTATE. HYPONATREMIIA HTN. lEFT FOOT DECUBITUS ULCER-UNSTAGEABLE. /PLAN : DC iv VANCOMYCIN 1 G ONCE A DAY DAILY.03/03/17 -DAY 14 DECREASE IV ZOSYN 2.25 MG IV Q8HRLY. 03/17/17 LT FOOT ULCER -DRY. PER PODIATRY. DC CONTACT PRECAUTIONS. Objective - Vital Signs/Intake and Output Vital Signs (last 24 hours): Temp Pulse Resp BP Pulse Ox 98.0 F 90 20 92/58 L 94 L 03/18/17 07:35 03/18/17 07:35 03/18/17 07:35 03/18/17 07:35 03/18/17 07:35 Intake and Output: 03/18/17 03/18/17 06:59 18:59 Intake Total 800 Balance 800 - Medications Medications: Current Medications Acetaminophen (Tylenol 325mg Tab) 650 mg PO Q6H PRN PRN Reason: Pain, moderate (4-7) Last Admin: 03/06/17 09:34 Dose: 650 mg Famotidine (Pepcid) 20 mg PO DAILY [facility] Last Admin: 03/18/17 10:46 Dose: 20 mg Sodium Chloride (Sodium Chloride 0.9%) 1,000 mls @ 100 mls/hr IV .Q10H [facility] Last Admin: 03/18/17 06:34 Dose: 100 mls/hr Piperacillin Sod/Tazobactam Sod (Zosyn 2.25 Gm Iv Premix) 2.25 gm in 50 mls @ 100 mls/hr IVPB Q8H [facility] Last Admin: 03/18/17 11:26 Dose: 100 mls/hr Potassium Chloride (Potassium Chloride 20 Meq/100 Ml) 20 meq in 100 mls @ 50 mls/hr IVPB ONCE ONE Stop: 03/18/17 15:29 Last Admin: 03/18/17 12:41 Dose: 50 mls/hr Rosuvastatin Calcium (Crestor) 10 mg PO HS [facility] Last Admin: 03/17/17 21:47 Dose: Not Given Tamsulosin HCl (Flomax) 0.4 mg PO DAILY [facility] Last Admin: 03/18/17 10:46 Dose: 0.4 mg - Labs Labs: 03/18/17 07:51 03/18/17 07:51 PT 16.0 SECONDS (9.7-12.2) H 03/13/17 21:00 INR 1.4 03/13/17 21:00 APTT 35 SECONDS (21-34) H 03/13/17 21:00
--- NOTE | 2017-03-18 15:23 | CP.PCM.PN ---
Subjective - Date & Time of Evaluation Date of Evaluation: 03/18/17 Time of Evaluation: 15:21 - Subjective Subjective: plans noted Still weak; no new complaints K repleted earlier Na decreased to 125- trial of NS fluids underway Objective - Vital Signs/Intake and Output Vital Signs (last 24 hours): Temp Pulse Resp BP Pulse Ox 98.0 F 90 20 92/58 L 94 L 03/18/17 07:35 03/18/17 07:35 03/18/17 07:35 03/18/17 07:35 03/18/17 07:35 Intake and Output: 03/18/17 03/18/17 06:59 18:59 Intake Total 800 Balance 800 - Medications Medications: Current Medications Acetaminophen (Tylenol 325mg Tab) 650 mg PO Q6H PRN PRN Reason: Pain, moderate (4-7) Last Admin: 03/06/17 09:34 Dose: 650 mg Famotidine (Pepcid) 20 mg PO DAILY [facility] Last Admin: 03/18/17 10:46 Dose: 20 mg Sodium Chloride (Sodium Chloride 0.9%) 1,000 mls @ 100 mls/hr IV .Q10H [facility] Last Admin: 03/18/17 06:34 Dose: 100 mls/hr Piperacillin Sod/Tazobactam Sod (Zosyn 2.25 Gm Iv Premix) 2.25 gm in 50 mls @ 100 mls/hr IVPB Q8H [facility] Last Admin: 03/18/17 11:26 Dose: 100 mls/hr Potassium Chloride (Potassium Chloride 20 Meq/100 Ml) 20 meq in 100 mls @ 50 mls/hr IVPB ONCE ONE Stop: 03/18/17 15:29 Last Admin: 03/18/17 12:41 Dose: 50 mls/hr Rosuvastatin Calcium (Crestor) 10 mg PO HS [facility] Last Admin: 03/17/17 21:47 Dose: Not Given Tamsulosin HCl (Flomax) 0.4 mg PO DAILY [facility] Last Admin: 03/18/17 10:46 Dose: 0.4 mg - Labs Labs: 03/18/17 07:51 03/18/17 07:51 PT 16.0 SECONDS (9.7-12.2) H 03/13/17 21:00 INR 1.4 03/13/17 21:00 APTT 35 SECONDS (21-34) H 03/13/17 21:00 - Constitutional Appears: No Acute Distress, Chronically Ill - Head Exam Head Exam: ATRAUMATIC, NORMAL INSPECTION - Eye Exam Eye Exam: EOMI, Normal appearance - Neck Exam Neck Exam: Normal Inspection. absent: Tenderness - Respiratory Exam Respiratory Exam: Clear to Ausculation Bilateral, NORMAL BREATHING PATTERN - Cardiovascular Exam Cardiovascular Exam: REGULAR RHYTHM, +S1 - GI/Abdominal Exam GI & Abdominal Exam: Soft. 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
--- NOTE | 2017-03-18 23:24 | CP.PCM.PN ---
Subjective - Date & Time of Evaluation Date of Evaluation: 03/18/17 Time of Evaluation: 18:00 - Subjective Subjective: Patient seen and examined, afebrile, not tacycardic, vancomycon trough level was high, D/C Vanco, PTstates he continues to have pain in his lower extremity. Patient denies any other complaints at this time.pending cultures, pt is weak and undernourished Objective - Vital Signs/Intake and Output Vital Signs (last 24 hours): Temp Pulse Resp BP Pulse Ox 97.1 F L 97 H 20 104/61 97 03/18/17 15:35 03/18/17 15:35 03/18/17 15:35 03/18/17 15:35 03/18/17 15:35 Intake and Output: 03/18/17 03/19/17 18:59 06:59 Intake Total 800 110 Balance 800 110 - Medications Medications: Current Medications Acetaminophen (Tylenol 325mg Tab) 650 mg PO Q6H PRN PRN Reason: Pain, moderate (4-7) Last Admin: 03/06/17 09:34 Dose: 650 mg Famotidine (Pepcid) 20 mg PO DAILY [facility] Last Admin: 03/18/17 10:46 Dose: 20 mg Sodium Chloride (Sodium Chloride 0.9%) 1,000 mls @ 100 mls/hr IV .Q10H [facility] Last Admin: 03/18/17 18:36 Dose: 100 mls/hr Piperacillin Sod/Tazobactam Sod (Zosyn 2.25 Gm Iv Premix) 2.25 gm in 50 mls @ 100 mls/hr IVPB Q8H [facility] Last Admin: 03/18/17 20:01 Dose: 100 mls/hr Rosuvastatin Calcium (Crestor) 10 mg PO HS [facility] Last Admin: 03/18/17 22:00 Dose: 10 mg Tamsulosin HCl (Flomax) 0.4 mg PO DAILY [facility] Last Admin: 03/18/17 10:46 Dose: 0.4 mg - Labs Labs: 03/18/17 07:51 03/18/17 07:51 PT 16.0 SECONDS (9.7-12.2) H 03/13/17 21:00 INR 1.4 03/13/17 21:00 APTT 35 SECONDS (21-34) H 03/13/17 21:00 - Constitutional Appears: No Acute Distress, Chronically Ill - Head Exam Head Exam: ATRAUMATIC, NORMAL INSPECTION, NORMOCEPHALIC - Eye Exam Eye Exam: EOMI, Normal appearance, PERRL Pupil Exam: NORMAL ACCOMODATION, PERRL - Respiratory Exam Respiratory Exam: NORMAL BREATHING PATTERN - Cardiovascular Exam Cardiovascular Exam: REGULAR RHYTHM, +S1, +S2. absent: Murmur - GI/Abdominal Exam GI & Abdominal Exam: Soft, Normal Bowel Sounds. absent: Tenderness Assessment and Plan (1) CA prostate, adenoca Status: Acute (2) Sepsis Status: Acute (3) UTI (urinary tract infection) Status: Acute (4) Acute urinary retention Status: Acute (5) CAD (coronary artery disease) Status: Acute (6) Hyponatremia Status: Acute (7) S/P TURP (status post transurethral resection of prostate) Status: Acute (8) Malnourished Status: Acute
[2017-03-19] MEDS: Sodium Chloride 0.9% 1,000 ML IV SCH (03:39)
[2017-03-19] MEDS: Piperacill/Tazo 2.25gm in Dex 2.25 GM/50 ML BAG IVPB SCH ×3 (03:40→21:08)
[2017-03-19 08:34] LABS: BLOOD UREA NITROGEN 11 mg/dL (9-20); CALCIUM 6.8 mg/dl (8.6-10.4); GFR AFRICAN-AMERICAN > 60; GFR NON-AFRICAN AMERICAN > 60
--- NOTE | 2017-03-19 12:05 | CP.PCM.PN ---
Subjective - Date & Time of Evaluation Date of Evaluation: 03/19/17 Time of Evaluation: 12:03 - Subjective Subjective: tolerating po on NS chronically ill unable to obtain ROS due to poor historian Objective - Vital Signs/Intake and Output Vital Signs (last 24 hours): Temp Pulse Resp BP Pulse Ox 96.2 F L 90 20 116/68 95 03/19/17 07:55 03/19/17 07:55 03/19/17 07:55 03/19/17 07:55 03/19/17 07:55 Intake and Output: 03/19/17 03/19/17 06:59 18:59 Intake Total 110 800 Balance 110 800 - Medications Medications: Current Medications Acetaminophen (Tylenol 325mg Tab) 650 mg PO Q6H PRN PRN Reason: Pain, moderate (4-7) Last Admin: 03/06/17 09:34 Dose: 650 mg Famotidine (Pepcid) 20 mg PO DAILY [facility] Last Admin: 03/19/17 10:50 Dose: 20 mg Sodium Chloride (Sodium Chloride 0.9%) 1,000 mls @ 100 mls/hr IV .Q10H [facility] Last Admin: 03/19/17 03:39 Dose: Not Given Piperacillin Sod/Tazobactam Sod (Zosyn 2.25 Gm Iv Premix) 2.25 gm in 50 mls @ 100 mls/hr IVPB Q8H [facility] Last Admin: 03/19/17 03:40 Dose: 100 mls/hr Rosuvastatin Calcium (Crestor) 10 mg PO HS [facility] Last Admin: 03/18/17 22:00 Dose: 10 mg Tamsulosin HCl (Flomax) 0.4 mg PO DAILY [facility] Last Admin: 03/19/17 10:50 Dose: 0.4 mg - Labs Labs: 03/18/17 07:51 03/19/17 07:56 PT 16.0 SECONDS (9.7-12.2) H 03/13/17 21:00 INR 1.4 03/13/17 21:00 APTT 35 SECONDS (21-34) H 03/13/17 21:00 - Constitutional Appears: Cachectic, Chronically Ill - Head Exam Head Exam: ATRAUMATIC - Eye Exam Eye Exam: EOMI, Normal appearance - ENT Exam ENT Exam: Mucous Membranes Moist - Neck Exam Neck Exam: Full ROM. absent: Lymphadenopathy - Respiratory Exam Respiratory Exam: Decreased Breath Sounds. absent: Accessory Muscle Use - Cardiovascular Exam Cardiovascular Exam: REGULAR RHYTHM. absent: Rubs - GI/Abdominal Exam GI & Abdominal Exam: Soft. absent: Tenderness - Extremities Exam Extremities Exam: absent: Pedal Edema Assessment and Plan - Assessment and Plan (Free Text) Assessment: SIADH prostate cancer d/c saline pt tolerating po if Na drops further, redose tolvaptan
--- NOTE | 2017-03-19 14:12 | CP.PCM.PN ---
Subjective - Date & Time of Evaluation Date of Evaluation: 03/19/17 Time of Evaluation: 14:12 - Subjective Subjective: CHIEF COMPLAINTS TODAY : S/P TURP 03/14/17 AFEBRILE. BP 92/57.LOW C/O GENERALIZED WEAKNESS . ROS. HEENT : N. Resp : No cough, wheezing ,pleuritic CP ,or hemoptysis Cardio : No anginal CP, PND, orthopnea, palpitation GI : No abd.pain, n/v ,diarrhea or GI bleeding . [employer]ENER : No headache, vertigo, focal deficit. Musculoskel : No joint swelling , Derm : No rash Psych : Normal affect. Ext : No swelling ,calf pain PE. Pt. is alert awake in no distress. V.S As noted in the chart Head ,ear nose,throat and eyes : Normal. Neck : Supple with normal carotids. Lungs: Clear air entry. Heart : S1 & S2 normal with S4. No murmur. Abd : Soft non tender with normal bowel sounds. Neuro : Moves all ext. with no localized deficit. Ext : No edema with intact pulses.Non tender calves LT, FOOT IN DRY DRESSING/ MULTIPODUS BOOTS Derm : No rashes or decubitus ulcer. LABS/RADIOLOGY: REPEAT BLOOD CULTURES ON 03/17/17 -VE GROWTH FOR 24 HOURS. REPEAT URINE CULTURE 03/08/17 -VE GROWTH. repeat urine culture 03/06/17 -ve growth. urine culture +ve MRSA RENAL FUNCTION STABLE. vANCO TROUGH 18.1- OKAY ASSESSMENT S/P TURP- NEW FEVER S/P SEPSIS SEC. UTI/CHRONIC Romero +VE MRSA HX . URINARY RETENTION CA OF PROSTATE. HYPONATREMIIA HTN. lEFT FOOT DECUBITUS ULCER-UNSTAGEABLE. /PLAN : ADD PO MVI 5ML PO OD DC iv VANCOMYCIN 1 G ONCE A DAY DAILY.03/03/17 -DAY 14 DECREASE IV ZOSYN 2.25 MG IV Q8HRLY. 03/17/17 LT FOOT ULCER -DRY. PER PODIATRY. DC CONTACT PRECAUTIONS. Objective - Vital Signs/Intake and Output Vital Signs (last 24 hours): Temp Pulse Resp BP Pulse Ox 96.2 F L 90 20 116/68 95 03/19/17 07:55 03/19/17 07:55 03/19/17 07:55 03/19/17 07:55 03/19/17 07:55 Intake and Output: 03/19/17 03/19/17 06:59 18:59 Intake Total 110 800 Balance 110 800 - Medications Medications: Current Medications Acetaminophen (Tylenol 325mg Tab) 650 mg PO Q6H PRN PRN Reason: Pain, moderate (4-7) Last Admin: 03/06/17 09:34 Dose: 650 mg Famotidine (Pepcid) 20 mg PO DAILY [facility] Last Admin: 03/19/17 10:50 Dose: 20 mg Piperacillin Sod/Tazobactam Sod (Zosyn 2.25 Gm Iv Premix) 2.25 gm in 50 mls @ 100 mls/hr IVPB Q8H [facility] Last Admin: 03/19/17 12:50 Dose: 100 mls/hr Rosuvastatin Calcium (Crestor) 10 mg PO HS [facility] Last Admin: 03/18/17 22:00 Dose: 10 mg Tamsulosin HCl (Flomax) 0.4 mg PO DAILY [facility] Last Admin: 03/19/17 10:50 Dose: 0.4 mg - Labs Labs: 03/18/17 07:51 03/19/17 07:56 PT 16.0 SECONDS (9.7-12.2) H 03/13/17 21:00 INR 1.4 03/13/17 21:00 APTT 35 SECONDS (21-34) H 03/13/17 21:00
[2017-03-19 14:18] LABS: ALB/GLOB RATIO 0.8 (1.0-2.1); ALBUMIN 2.2 g/dL (3.5-5.0); ALT/SGPT 15 U/L (21-72); AST/SGOT 26 U/L (17-59); BLOOD UREA NITROGEN 9 mg/dL (9-20); CALCIUM 6.9 mg/dl (8.6-10.4); GFR AFRICAN-AMERICAN > 60; GFR NON-AFRICAN AMERICAN > 60
--- NOTE | 2017-03-19 19:11 | CP.PCM.PN ---
Subjective - Date & Time of Evaluation Date of Evaluation: 03/19/17 Time of Evaluation: 09:55 - Subjective Subjective: 81 year old male patient seen and evaluated at bedside for unstageable decubitus ulcerations to left heel and left lateral 5th metatarsal head. Denies any acute events overnight. Reports mild pain to his wounds, well-controlled. Dressings clean/dry/intact with multipodus boots presents. Denies N/V/F/D/C/SOB. Objective - Vital Signs/Intake and Output Vital Signs (last 24 hours): Temp Pulse Resp BP Pulse Ox 97.3 F L 85 20 99/53 L 96 03/19/17 15:00 03/19/17 15:00 03/19/17 15:00 03/19/17 15:00 03/19/17 15:00 Intake and Output: 03/19/17 03/19/17 06:59 18:59 Intake Total 110 800 Balance 110 800 - Medications Medications: Current Medications Acetaminophen (Tylenol 325mg Tab) 650 mg PO Q6H PRN PRN Reason: Pain, moderate (4-7) Last Admin: 03/06/17 09:34 Dose: 650 mg Famotidine (Pepcid) 20 mg PO DAILY [facility] Last Admin: 03/19/17 10:50 Dose: 20 mg Piperacillin Sod/Tazobactam Sod (Zosyn 2.25 Gm Iv Premix) 2.25 gm in 50 mls @ 100 mls/hr IVPB Q8H [facility] Last Admin: 03/19/17 12:50 Dose: 100 mls/hr Potassium Chloride (K-Dur 20 Meq Er Tab) 20 meq PO DAILY [facility] Rosuvastatin Calcium (Crestor) 10 mg PO HS [facility] Last Admin: 03/18/17 22:00 Dose: 10 mg Tamsulosin HCl (Flomax) 0.4 mg PO DAILY [facility] Last Admin: 03/19/17 10:50 Dose: 0.4 mg - Labs Labs: 03/18/17 07:51 03/19/17 14:01 PT 16.0 SECONDS (9.7-12.2) H 03/13/17 21:00 INR 1.4 03/13/17 21:00 APTT 35 SECONDS (21-34) H 03/13/17 21:00 - Constitutional Appears: Well, Non-toxic, No Acute Distress - Extremities Exam Additional comments: Left lower extremity exam Vasc: Non-palpable DP and PT noted bilaterally. 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 No PTB, no fluctuance, no malodor noted. No sign of acute infection is noted. No interdigital maceration noted. Additional unstageagle ulceration noted to lateral aspect of 5th metatarsal head measuring 1.3cmx 1.0cm with fibrous base, + probe to bone. Mild serosanguinous drainage noted. no malodor noted. No fluctuance. Ortho: Pain on palpation to heel at the site of ulceration. No pain induced on palpation to lateral 5th metatarsal head Neuro: Gross sensation intact - Neurological Exam Neurological Exam: Alert, Awake, Oriented x3 - Psychiatric Exam Psychiatric exam: Normal Affect, Normal Mood Assessment and Plan - Assessment and Plan (Free Text) Assessment: 81 yo male patient presents with unstageable decubitus ulcerations to left heel and left lateral 5th metatarsal head Plan: Patient seen and evaluated at bedside with attending Dr. Celeste Afebrile, WBC decreasing 2.4 Bone scan of left foot (-) for OM L foot xray 03/04/17: No evidence of OM L foot dressed with betadine soaked gauze, DSD, and multipodus boots applied B/L Continue multipodus boots at all times to prevent new/worsening decubitus ulcerations No surgical intervention planned at this time OZIEL/PVR show possible occlusion of left anterior tibial and DP arteries CTA -Extremely dense rim calcification of the tibial aa. and peroneal a. that surrounds the thin caliber lumin, making it difficult to determine whether there is actually intraluminal contrast. Similar limitations were discussed in the recent LLE US report -Areas of occlusion within the trifurcation vessels b/l -Reconstitution of the peroneal aa. b/l as well as reconstitution of right anterior tibia a. and left posterior tibial a. -Occlusion of the right posterior tibial a. and left anterior tibial a. distally Podiatry will continue to follow while patient in house
--- NOTE | 2017-03-19 23:37 | CP.PCM.PN ---
Subjective - Date & Time of Evaluation Date of Evaluation: 03/19/17 Time of Evaluation: 18:00 - Subjective Subjective: Pt seen and evalauted, S/P TURP 03/14/17 AFEBRILE. BP 92/57.LOW C/O GENERALIZED WEAKNESS . Objective - Vital Signs/Intake and Output Vital Signs (last 24 hours): Temp Pulse Resp BP Pulse Ox 97.3 F L 85 20 99/53 L 96 03/19/17 15:00 03/19/17 15:00 03/19/17 15:00 03/19/17 15:00 03/19/17 15:00 Intake and Output: 03/19/17 03/20/17 18:59 06:59 Intake Total 1400 400 Balance 1400 400 - Medications Medications: Current Medications Acetaminophen (Tylenol 325mg Tab) 650 mg PO Q6H PRN PRN Reason: Pain, moderate (4-7) Last Admin: 03/06/17 09:34 Dose: 650 mg Famotidine (Pepcid) 20 mg PO DAILY [facility] Last Admin: 03/19/17 10:50 Dose: 20 mg Piperacillin Sod/Tazobactam Sod (Zosyn 2.25 Gm Iv Premix) 2.25 gm in 50 mls @ 100 mls/hr IVPB Q8H [facility] Last Admin: 03/19/17 21:08 Dose: 100 mls/hr Multivitamins/Vitamin C (Multi-Delyn Liquid) 5 ml PO DAILY [facility] Potassium Chloride (K-Dur 20 Meq Er Tab) 20 meq PO DAILY [facility] Rosuvastatin Calcium (Crestor) 10 mg PO HS [facility] Last Admin: 03/19/17 21:08 Dose: 10 mg Tamsulosin HCl (Flomax) 0.4 mg PO DAILY [facility] Last Admin: 03/19/17 10:50 Dose: 0.4 mg - Labs Labs: 03/18/17 07:51 03/19/17 14:01 PT 16.0 SECONDS (9.7-12.2) H 03/13/17 21:00 INR 1.4 03/13/17 21:00 APTT 35 SECONDS (21-34) H 03/13/17 21:00 - Constitutional Appears: No Acute Distress - Head Exam Head Exam: ATRAUMATIC, NORMAL INSPECTION, NORMOCEPHALIC - Eye Exam Eye Exam: EOMI, Normal appearance, PERRL Pupil Exam: NORMAL ACCOMODATION, PERRL - Respiratory Exam Respiratory Exam: Decreased Breath Sounds, Rales, Rhonchi - Cardiovascular Exam Cardiovascular Exam: REGULAR RHYTHM, +S1, +S2. absent: Murmur - Rectal Exam Rectal Exam: NORMAL INSPECTION Assessment and Plan (1) CA prostate, adenoca Status: Acute (2) Sepsis Status: Acute (3) UTI (urinary tract infection) Status: Acute (4) Acute urinary retention Status: Acute (5) CAD (coronary artery disease) Status: Acute (6) Hyponatremia Status: Acute (7) S/P TURP (status post transurethral resection of prostate) Status: Acute (8) Malnourished Status: Acute
[2017-03-20] MEDS: Piperacill/Tazo 2.25gm in Dex 2.25 GM/50 ML BAG IVPB SCH ×3 (03:34→21:30)
--- NOTE | 2017-03-20 08:38 | OP ---
PROCEDURE DATE: 03/14/2017 UROLOGY OPERATIVE REPORT PREOPERATIVE DIAGNOSES: 1. Prostate carcinoma. 2. Urinary retention. POSTOPERATIVE DIAGNOSES: 1. Prostate carcinoma. 2. Urinary retention. PROCEDURE: Transurethral resection of the prostate. OPERATING SURGEON: Erendira Glez MD. DESCRIPTION OF PROCEDURE: As follows: The patient received general anesthesia. The patient was placed in lithotomy position. Genitalia prepped and draped sterilely. The patient had been on perioperative antibiotics. A 26-[place] continuous flow resectoscope sheath was introduced under direct vision using the visual obturator. Urethra, prostate, bladder were inspected. The resectoscope was inserted. The obstructing prostatic tissue was resected. The ureteral orifice were identified and spared throughout the procedure. Resection was begun at the bladder neck. The occlusive prostatic tissue involved the lateral lobes as well as the bladder neck tissue. The landmarks of the veru and ureteral orifices were resection. The bladder neck was first resected. Thereafter, the anterior roof tissue was resected. Subsequently, each lateral lobe was resected. Finally, the floor tissue was resected. Hemostasis was achieved after each section of resection. The prostatic chips were removed using the [employer] evacuator. The resectoscope was inserted. Hemostasis was complete. There were no residual prostatic chips. Resectoscope and sheath removed. Cummings catheter was inserted. Bladder drainage was clear. The patient was returned to the supine position. The patient tolerated procedure without complication. Erendira Glez MD cc: Dr. Rollins
[2017-03-20 08:56] LABS: BLOOD UREA NITROGEN 8 mg/dL (9-20); CALCIUM 7.2 mg/dl (8.6-10.4); GFR AFRICAN-AMERICAN > 60; GFR NON-AFRICAN AMERICAN > 60
[2017-03-20] MEDS ORDERED: Multiple Vitamins Oral Solution PO SCH (10:00)
[2017-03-20] MEDS: Potassium Chloride 20 mEq ER Tab PO SCH (10:49)
[2017-03-20] MEDS: Multiple Vitamins Tab PO SCH (10:57)
[2017-03-20] MEDS: Potassium Chloride 20 mEq/15 ml LIQ UD PO SCH ×2 (16:37→22:02)
[2017-03-20] MEDS ORDERED: Potassium Chloride 20 mEq/15 ml LIQ UD PO ONE (21:30)
--- NOTE | 2017-03-20 21:53 | CP.PCM.PN ---
Subjective - Date & Time of Evaluation Date of Evaluation: 03/20/17 Time of Evaluation: 20:00 - Subjective Subjective: Pt seen and evalauted, stable for OR tommorow, s/p TURP, afebrile, no nuasea, vomitting, hypokalemia pt getting potaisum supplementation Objective - Vital Signs/Intake and Output Vital Signs (last 24 hours): Temp Pulse Resp BP Pulse Ox 97.8 F 100 H 20 99/68 L 96 03/20/17 16:00 03/20/17 16:00 03/20/17 16:00 03/20/17 16:00 03/20/17 16:00 Intake and Output: 03/20/17 03/21/17 18:59 06:59 Intake Total 400 Balance 400 - Medications Medications: Current Medications Acetaminophen (Tylenol 325mg Tab) 650 mg PO Q6H PRN PRN Reason: Pain, moderate (4-7) Last Admin: 03/06/17 09:34 Dose: 650 mg Famotidine (Pepcid) 20 mg PO DAILY [facility] Last Admin: 03/20/17 10:49 Dose: 20 mg Piperacillin Sod/Tazobactam Sod (Zosyn 2.25 Gm Iv Premix) 2.25 gm in 50 mls @ 100 mls/hr IVPB Q8H [facility] Last Admin: 03/20/17 13:10 Dose: 100 mls/hr Multivitamins (Hexavitamin) 1 tab PO DAILY [facility] Last Admin: 03/20/17 10:57 Dose: 1 tab Potassium Chloride (K-Dur 20 Meq Er Tab) 20 meq PO DAILY [facility] Last Admin: 03/20/17 10:49 Dose: 20 meq Rosuvastatin Calcium (Crestor) 10 mg PO HS [facility] Last Admin: 03/19/17 21:08 Dose: 10 mg Tamsulosin HCl (Flomax) 0.4 mg PO DAILY [facility] Last Admin: 03/20/17 10:49 Dose: 0.4 mg - Labs Labs: 03/18/17 07:51 03/20/17 08:22 PT 16.0 SECONDS (9.7-12.2) H 03/13/17 21:00 INR 1.4 03/13/17 21:00 APTT 35 SECONDS (21-34) H 03/13/17 21:00 - Constitutional Appears: No Acute Distress - Head Exam Head Exam: ATRAUMATIC, NORMAL INSPECTION, NORMOCEPHALIC - Eye Exam Eye Exam: EOMI, Normal appearance, PERRL Pupil Exam: NORMAL ACCOMODATION, PERRL - Respiratory Exam Respiratory Exam: Clear to Ausculation Bilateral, NORMAL BREATHING PATTERN - Cardiovascular Exam Cardiovascular Exam: REGULAR RHYTHM, +S1, +S2. absent: Murmur - GI/Abdominal Exam GI & Abdominal Exam: Soft, Normal Bowel Sounds. absent: Tenderness - Neurological Exam Neurological Exam: Alert, Awake, CN II-XII Intact, Normal Gait, Oriented x3 - Psychiatric Exam Psychiatric exam: Normal Affect, Normal Mood Assessment and Plan (1) CA prostate, adenoca Status: Acute (2) Sepsis Status: Acute (3) UTI (urinary tract infection) Status: Acute (4) Acute urinary retention Status: Acute (5) CAD (coronary artery disease) Status: Acute (6) Hyponatremia Status: Acute (7) S/P TURP (status post transurethral resection of prostate) Status: Acute (8) Malnourished Status: Acute
[2017-03-21] MEDS: Piperacill/Tazo 2.25gm in Dex 2.25 GM/50 ML BAG IVPB SCH ×3 (03:19→21:25)
[2017-03-21 09:28] LABS: BLOOD UREA NITROGEN 7 mg/dL (9-20); GFR AFRICAN-AMERICAN > 60; GFR NON-AFRICAN AMERICAN > 60
--- NOTE | 2017-03-21 09:34 | CP.PCM.PN ---
<Nathaniel Celeste - Last Filed: 03/21/17 09:34> Subjective - Date & Time of Evaluation Date of Evaluation: 03/21/17 Time of Evaluation: 09:34 Objective - Vital Signs/Intake and Output Vital Signs (last 24 hours): Temp Pulse Resp BP Pulse Ox 98 F 89 20 102/62 96 03/21/17 08:26 03/21/17 08:26 03/21/17 08:26 03/21/17 08:26 03/21/17 08:26 Intake and Output: 03/21/17 03/21/17 06:59 18:59 Intake Total 200 Balance 200 - Medications Medications: Current Medications Acetaminophen (Tylenol 325mg Tab) 650 mg PO Q6H PRN PRN Reason: Pain, moderate (4-7) Last Admin: 03/06/17 09:34 Dose: 650 mg Famotidine (Pepcid) 20 mg PO DAILY [facility] Last Admin: 03/20/17 10:49 Dose: 20 mg Piperacillin Sod/Tazobactam Sod (Zosyn 2.25 Gm Iv Premix) 2.25 gm in 50 mls @ 100 mls/hr IVPB Q8H [facility] Last Admin: 03/20/17 21:30 Dose: 100 mls/hr Multivitamins (Hexavitamin) 1 tab PO DAILY [facility] Last Admin: 03/20/17 10:57 Dose: 1 tab Potassium Chloride (K-Dur 20 Meq Er Tab) 20 meq PO DAILY [facility] Last Admin: 03/20/17 10:49 Dose: 20 meq Rosuvastatin Calcium (Crestor) 10 mg PO HS [facility] Last Admin: 03/20/17 22:01 Dose: 10 mg Tamsulosin HCl (Flomax) 0.4 mg PO DAILY [facility] Last Admin: 03/20/17 10:49 Dose: 0.4 mg - Labs Labs: 03/18/17 07:51 03/21/17 09:13 PT 16.0 SECONDS (9.7-12.2) H 03/13/17 21:00 INR 1.4 03/13/17 21:00 APTT 35 SECONDS (21-34) H 03/13/17 21:00 <Ramirez Salamanca - Last Filed: 03/21/17 10:59> Subjective - Subjective Subjective: Podiatry Progress Note- Dr. Celeste 81 year old male patient seen and evaluated at bedside for unstageable decubitus ulcerations to left heel and left lateral 5th metatarsal head. Denies any acute events overnight. Reports mild pain to his wounds, well-controlled. Dressings clean/dry/intact with multipodus boots presents. Denies N/V/F/D/C/SOB. Objective - Vital Signs/Intake and Output Vital Signs (last 24 hours): Temp Pulse Resp BP Pulse Ox 98 F 89 20 102/62 96 03/21/17 08:26 03/21/17 08:26 03/21/17 08:26 03/21/17 08:26 03/21/17 08:26 Intake and Output: 03/21/17 03/21/17 06:59 18:59 Intake Total 200 Balance 200 - Medications Medications: Current Medications Acetaminophen (Tylenol 325mg Tab) 650 mg PO Q6H PRN PRN Reason: Pain, moderate (4-7) Last Admin: 03/06/17 09:34 Dose: 650 mg Famotidine (Pepcid) 20 mg PO DAILY [facility] Last Admin: 03/20/17 10:49 Dose: 20 mg Piperacillin Sod/Tazobactam Sod (Zosyn 2.25 Gm Iv Premix) 2.25 gm in 50 mls @ 100 mls/hr IVPB Q8H [facility] Last Admin: 03/20/17 21:30 Dose: 100 mls/hr Multivitamins (Hexavitamin) 1 tab PO DAILY [facility] Last Admin: 03/20/17 10:57 Dose: 1 tab Potassium Chloride (K-Dur 20 Meq Er Tab) 20 meq PO DAILY [facility] Last Admin: 03/20/17 10:49 Dose: 20 meq Rosuvastatin Calcium (Crestor) 10 mg PO HS [facility] Last Admin: 03/20/17 22:01 Dose: 10 mg Tamsulosin HCl (Flomax) 0.4 mg PO DAILY [facility] Last Admin: 03/20/17 10:49 Dose: 0.4 mg - Labs Labs: 03/18/17 07:51 03/21/17 09:13 PT 16.0 SECONDS (9.7-12.2) H 03/13/17 21:00 INR 1.4 03/13/17 21:00 APTT 35 SECONDS (21-34) H 03/13/17 21:00 - Constitutional Appears: Well, Non-toxic, No Acute Distress - Extremities Exam Additional comments: Left lower extremity exam Vasc: Non-palpable DP and PT noted bilaterally. 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 No PTB, no fluctuance, no malodor noted. No sign of acute infection is noted. No interdigital maceration noted. Additional unstageagle ulceration noted to lateral aspect of 5th metatarsal head measuring 1.3cmx 1.0cm with fibrous base, + probe to bone. Mild serosanguinous drainage noted. no malodor noted. No fluctuance. Ortho: Pain on palpation to heel at the site of ulceration. No pain induced on palpation to lateral 5th metatarsal head Neuro: Gross sensation intact - Neurological Exam Neurological Exam: Alert, Awake, Oriented x3 - Psychiatric Exam Psychiatric exam: Normal Affect, Normal Mood Assessment and Plan - Assessment and Plan (Free Text) Assessment: 81 yo male patient presents with unstageable decubitus ulcerations to left heel and left lateral 5th metatarsal head Plan: Patient seen and evaluated at bedside with attending Dr. Celeste Afebriyana, WBC 2.4 on 03/18/17 Bone scan of left foot (-) for OM L foot xray 03/04/17: No evidence of OM L foot dressed with betadine soaked gauze, DSD, and multipodus boots applied B/L Continue multipodus boots at all times to prevent new/worsening decubitus ulcerations No surgical intervention planned at this time OZIEL/PVR show possible occlusion of left anterior tibial and DP arteries CTA -Extremely dense rim calcification of the tibial aa. and peroneal a. that surrounds the thin caliber lumin, making it difficult to determine whether there is actually intraluminal contrast. Similar limitations were discussed in the recent LLE US report -Areas of occlusion within the trifurcation vessels b/l -Reconstitution of the peroneal aa. b/l as well as reconstitution of right anterior tibia a. and left posterior tibial a. -Occlusion of the right posterior tibial a. and left anterior tibial a. distally Podiatry will continue to follow while patient in house
[2017-03-21] MEDS ORDERED: Bacitracin Ointment 30 GM TUBE ONE (10:07)
[2017-03-21] MEDS ORDERED: ceFAZolin IV 1 gm in Dextrose 0 GM/0 ML BAG IVPB ONE (11:16)
[2017-03-21] MEDS ORDERED: Bupivacaine HCl 0.5% PF (10 ml) Inj ONE ×2 (11:16)
[2017-03-21] MEDS ORDERED: Lidocaine 1% Inj (20ml) ONE (11:17)
[2017-03-21] MEDS ORDERED: Lactated Ringer's 1,000 ML IV ONE ×2 (11:40→12:45)
--- NOTE | 2017-03-21 12:11 | CP.PCM.PN ---
Subjective - Date & Time of Evaluation Date of Evaluation: 03/21/17 Time of Evaluation: 12:09 - Subjective Subjective: Surgery Pt s&e. NAEON. Pain controlled. Dressing in place. Objective - Vital Signs/Intake and Output Vital Signs (last 24 hours): Temp Pulse Resp BP Pulse Ox 98 F 89 20 102/62 96 03/21/17 08:26 03/21/17 08:26 03/21/17 08:26 03/21/17 08:26 03/21/17 08:26 Intake and Output: 03/21/17 03/21/17 06:59 18:59 Intake Total 200 Balance 200 - Medications Medications: Current Medications Acetaminophen (Tylenol 325mg Tab) 650 mg PO Q6H PRN PRN Reason: Pain, moderate (4-7) Last Admin: 03/06/17 09:34 Dose: 650 mg Famotidine (Pepcid) 20 mg PO DAILY [facility] Last Admin: 03/20/17 10:49 Dose: 20 mg Piperacillin Sod/Tazobactam Sod (Zosyn 2.25 Gm Iv Premix) 2.25 gm in 50 mls @ 100 mls/hr IVPB Q8H [facility] Last Admin: 03/21/17 11:40 Dose: 50 mls Multivitamins (Hexavitamin) 1 tab PO DAILY [facility] Last Admin: 03/20/17 10:57 Dose: 1 tab Potassium Chloride (K-Dur 20 Meq Er Tab) 20 meq PO DAILY [facility] Last Admin: 03/20/17 10:49 Dose: 20 meq Rosuvastatin Calcium (Crestor) 10 mg PO HS [facility] Last Admin: 03/20/17 22:01 Dose: 10 mg Tamsulosin HCl (Flomax) 0.4 mg PO DAILY [facility] Last Admin: 03/20/17 10:49 Dose: 0.4 mg - Labs Labs: 03/18/17 07:51 03/21/17 09:13 PT 16.0 SECONDS (9.7-12.2) H 03/13/17 21:00 INR 1.4 03/13/17 21:00 APTT 35 SECONDS (21-34) H 03/13/17 21:00 - Constitutional Appears: No Acute Distress - Head Exam Head Exam: ATRAUMATIC, NORMAL INSPECTION, NORMOCEPHALIC - Eye Exam Eye Exam: EOMI, Normal appearance, PERRL Pupil Exam: NORMAL ACCOMODATION, PERRL - ENT Exam ENT Exam: Mucous Membranes Moist, Normal Exam - Neck Exam Neck Exam: Full ROM, Normal Inspection. absent: Lymphadenopathy - Respiratory Exam Respiratory Exam: Clear to Ausculation Bilateral, NORMAL BREATHING PATTERN - Cardiovascular Exam Cardiovascular Exam: REGULAR RHYTHM, +S1, +S2. absent: Murmur - GI/Abdominal Exam GI & Abdominal Exam: Soft, Normal Bowel Sounds. absent: Distended, Firm, Tenderness - Extremities Exam Extremities Exam: Tenderness. absent: Full ROM, Normal Capillary Refill, Normal Inspection - Back Exam Back Exam: NORMAL INSPECTION - Neurological Exam Neurological Exam: Alert, Awake, CN II-XII Intact, Oriented x3. absent: Normal Gait - Skin Skin Exam: Erythema, Warm Assessment and Plan - Assessment and Plan (Free Text) Assessment: 81 M with PVD and left foot ulcer - Arterial duplex suggests occlusion of L anterior tibial and L DP artery - Angiography: Patent femoral arteries and popliteal arteries bilaterally. Extremely dense rim calcification of the tibial arteries and peroneal artery that surrounds the thin caliber lumen, making it difficult to determine whether there is actually intraluminal contrast (majority of the cross-sectional area is occupied by hyperdense calcification with little remaining cross-sectional area centrally to identify hyperdense contrast). Similar limitations were discussed in the recent left lower extremity ultrasound report. Areas of occlusion within the trifurcation vessels bilaterally as described in detail above. However there appears to be reconstitution of the peroneal arteries bilaterally as well as reconstitution of the right anterior tibial artery and left posterior tibial artery. Occlusion of the right posterior tibial artery and left anterior tibial artery distally. Pt is poor surgical candidate and legs are contracted. Pt won't benefit from surgical intervention. -No surgical intervention at this time -Analgesics PRN -Dressing changes as per podiatry -Management as per primary DW Dr. Tate
--- NOTE | 2017-03-21 12:15 | CP.PCM.PN ---
Subjective - Date & Time of Evaluation Date of Evaluation: 03/21/17 Time of Evaluation: 12:12 - Subjective Subjective: for orchiectomy Repeat Na 127- adequate Otherwise pt has been same Objective - Vital Signs/Intake and Output Vital Signs (last 24 hours): Temp Pulse Resp BP Pulse Ox 98 F 89 20 102/62 96 03/21/17 08:26 03/21/17 08:26 03/21/17 08:26 03/21/17 08:26 03/21/17 08:26 Intake and Output: 03/21/17 03/21/17 06:59 18:59 Intake Total 200 Balance 200 - Medications Medications: Current Medications Acetaminophen (Tylenol 325mg Tab) 650 mg PO Q6H PRN PRN Reason: Pain, moderate (4-7) Last Admin: 03/06/17 09:34 Dose: 650 mg Famotidine (Pepcid) 20 mg PO DAILY [facility] Last Admin: 03/20/17 10:49 Dose: 20 mg Piperacillin Sod/Tazobactam Sod (Zosyn 2.25 Gm Iv Premix) 2.25 gm in 50 mls @ 100 mls/hr IVPB Q8H [facility] Last Admin: 03/21/17 11:40 Dose: 50 mls Multivitamins (Hexavitamin) 1 tab PO DAILY [facility] Last Admin: 03/20/17 10:57 Dose: 1 tab Potassium Chloride (K-Dur 20 Meq Er Tab) 20 meq PO DAILY [facility] Last Admin: 03/20/17 10:49 Dose: 20 meq Rosuvastatin Calcium (Crestor) 10 mg PO HS [facility] Last Admin: 03/20/17 22:01 Dose: 10 mg Tamsulosin HCl (Flomax) 0.4 mg PO DAILY [facility] Last Admin: 03/20/17 10:49 Dose: 0.4 mg - Labs Labs: 03/18/17 07:51 03/21/17 09:13 PT 16.0 SECONDS (9.7-12.2) H 03/13/17 21:00 INR 1.4 03/13/17 21:00 APTT 35 SECONDS (21-34) H 03/13/17 21:00 - Constitutional Appears: No Acute Distress, Chronically Ill - Head Exam Head Exam: ATRAUMATIC, NORMAL INSPECTION - Eye Exam Eye Exam: EOMI, Normal appearance - Neck Exam Neck Exam: absent: Tenderness - Cardiovascular Exam Cardiovascular Exam: REGULAR RHYTHM, +S1 - GI/Abdominal Exam GI & Abdominal Exam: Soft. absent: Tenderness - Extremities Exam Extremities Exam: Normal Inspection. 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
--- NOTE | 2017-03-21 12:21 | PCM.SURG1 ---
Surgeon's Initial Post Op Note - Surgeon's Notes Surgeon: Maricel Glez Pipe Caulker: none Type of Anesthesia: General LMA, Local Pre-Operative Diagnosis: Prostate ca Operative Findings: same Post-Operative Diagnosis: same Operation Performed: Bilat orchiectomy Specimen/Specimens Removed: testes Estimated Blood Loss: EBL {In ML}: 3 Blood Products Given: N/A Drains Used: No Drains Post-Op Condition: Good Date of Surgery/Procedure: 03/21/17 Time of Surgery/Procedure: 12:15
[2017-03-21] MEDS: Lactated Ringer's 1,000 ML IV SCH ×2 (14:20→15:41)
[2017-03-21] MEDS: Potassium Chloride 20 mEq ER Tab PO SCH (15:31)
[2017-03-21] MEDS: Multiple Vitamins Tab PO SCH (15:32)
[2017-03-21 20:15] LABS: BASO % 0.7 % (0.0-2.0); EOS % 2.1 % (0.0-4.0); HEMOGLOBIN 9.4 g/dL (12.0-18.0); LYMPH # 1.1 K/uL (1.0-4.3); LYMPH % 44.3 % (20.0-40.0); MEAN CORPUSCULAR HEMOGLOBIN 28.3 pg (27.0-31.0); MEAN CORPUSCULAR HGB CONC 32.5 g/dL (33.0-37.0); MEAN PLATELET VOLUME 7.9 fL (7.2-11.7); MONO # 0.3 K/uL (0.0-0.8); MONO % 12.7 % (0.0-10.0); NEUT % 40.2 % (50.0-75.0); NRBC % 0.6 % (0.0-2.0); RBC 3.34 Mil/uL (4.40-5.90); RED CELL DISTRIBUTION WIDTH 15.2 % (11.5-14.5); WHITE BLOOD COUNT 2.4 K/uL (4.8-10.8)
--- NOTE | 2017-03-21 22:49 | CP.PCM.PN ---
Subjective - Date & Time of Evaluation Date of Evaluation: 03/21/17 Time of Evaluation: 16:40 - Subjective Subjective: Pt seen and examined, he underwent orchiectomy today, pt is stable, no nausea, vomitting, fever, chest pain Objective - Vital Signs/Intake and Output Vital Signs (last 24 hours): Temp Pulse Resp BP Pulse Ox 97.5 F L 86 20 94/56 L 97 03/21/17 16:44 03/21/17 16:44 03/21/17 16:44 03/21/17 16:44 03/21/17 16:44 Intake and Output: 03/21/17 03/22/17 18:59 06:59 Intake Total 710 Balance 710 - Medications Medications: Current Medications Acetaminophen (Tylenol 325mg Tab) 650 mg PO Q6H PRN PRN Reason: Pain, moderate (4-7) Last Admin: 03/06/17 09:34 Dose: 650 mg Famotidine (Pepcid) 20 mg PO DAILY [facility] Last Admin: 03/21/17 15:31 Dose: 20 mg Piperacillin Sod/Tazobactam Sod (Zosyn 2.25 Gm Iv Premix) 2.25 gm in 50 mls @ 100 mls/hr IVPB Q8H [facility] Last Admin: 03/21/17 21:25 Dose: 100 mls/hr Multivitamins (Hexavitamin) 1 tab PO DAILY [facility] Last Admin: 03/21/17 15:32 Dose: 1 tab Potassium Chloride (K-Dur 20 Meq Er Tab) 20 meq PO DAILY [facility] Last Admin: 03/21/17 15:31 Dose: 20 meq Rosuvastatin Calcium (Crestor) 10 mg PO HS [facility] Last Admin: 03/21/17 21:25 Dose: 10 mg Tamsulosin HCl (Flomax) 0.4 mg PO DAILY [facility] Last Admin: 03/21/17 15:31 Dose: 0.4 mg - Labs Labs: 03/21/17 20:00 03/21/17 09:13 PT 16.0 SECONDS (9.7-12.2) H 03/13/17 21:00 INR 1.4 03/13/17 21:00 APTT 35 SECONDS (21-34) H 03/13/17 21:00 - Constitutional Appears: No Acute Distress, Chronically Ill - Head Exam Head Exam: ATRAUMATIC, NORMAL INSPECTION, NORMOCEPHALIC - Eye Exam Eye Exam: EOMI, Normal appearance, PERRL Pupil Exam: NORMAL ACCOMODATION, PERRL - Respiratory Exam Respiratory Exam: Clear to Ausculation Bilateral, NORMAL BREATHING PATTERN - Cardiovascular Exam Cardiovascular Exam: REGULAR RHYTHM, +S1, +S2. absent: Murmur - GI/Abdominal Exam GI & Abdominal Exam: Soft, Normal Bowel Sounds. absent: Tenderness - Rectal Exam Rectal Exam: Deferred Assessment and Plan (1) CA prostate, adenoca Status: Acute (2) Sepsis Status: Acute (3) UTI (urinary tract infection) Status: Acute (4) Acute urinary retention Status: Acute (5) CAD (coronary artery disease) Status: Acute (6) Hyponatremia Status: Acute (7) S/P TURP (status post transurethral resection of prostate) Status: Acute (8) Malnourished Status: Acute (9) S/P orchiectomy Status: Acute
--- NOTE | 2017-03-21 23:35 | CP.PCM.PN ---
Subjective - Date & Time of Evaluation Date of Evaluation: 03/21/17 Time of Evaluation: 23:34 - Subjective Subjective: CHIEF COMPLAINTS TODAY : S/P B/L ORCHIECTOMY 03/21/17 S/P TURP 03/14/17 AFEBRILE. BP 92/57.LOW ROS. ON OBSERVATION HEENT : N. Resp : No cough, wheezing ,pleuritic CP ,or hemoptysis Cardio : No anginal CP, PND, orthopnea, palpitation GI : No abd.pain, n/v ,diarrhea or GI bleeding . GRAPHIC EDITOR : No headache, vertigo, focal deficit. Musculoskel : No joint swelling , Derm : No rash Psych : Normal affect. Ext : No swelling ,calf pain PE. Pt. is in no distress. V.S As noted in the chart Head ,ear nose,throat and eyes : Normal. Neck : Supple with normal carotids. Lungs: Clear air entry. Heart : S1 & S2 normal with S4. No murmur. Abd : Soft non tender with normal bowel sounds. Neuro : Moves all ext. with no localized deficit. Ext : No edema with intact pulses.Non tender calves LT, FOOT IN DRY DRESSING/ MULTIPODUS BOOTS Derm : No rashes or decubitus ulcer. LABS/RADIOLOGY: REPEAT BLOOD CULTURES ON 03/17/17 -VE GROWTH FOR 24 HOURS. REPEAT URINE CULTURE 03/08/17 -VE GROWTH. repeat urine culture 03/06/17 -ve growth. urine culture +ve MRSA RENAL FUNCTION STABLE. ASSESSMENT S/P B/L ORCHIECTOMY 03/21/17 S/P TURP- S/P SEPSIS SEC. UTI/CHRONIC Romero +VE MRSA HX . URINARY RETENTION CA OF PROSTATE. HYPONATREMIIA HTN. lEFT FOOT DECUBITUS ULCER-UNSTAGEABLE. /PLAN : ON IV ZOSYN 2.25 MG IV Q8HRLY. 03/17/17 POST OPTIVE CARE PER . WATCH H/H OR HEMATOMA POST OPTIVE LT FOOT ULCER -DRY. PER PODIATRY. DR WINTERS ID TO F/U PT FROM 03/22/17 -TO 03/28/17. PLEASE NOTIFY HIM OF ANY CHANGES OR R/O ANTIBIOTICS, Objective - Vital Signs/Intake and Output Vital Signs (last 24 hours): Temp Pulse Resp BP Pulse Ox 97.5 F L 86 20 94/56 L 97 03/21/17 16:44 03/21/17 16:44 03/21/17 16:44 03/21/17 16:44 03/21/17 16:44 Intake and Output: 03/21/17 03/22/17 18:59 06:59 Intake Total 710 Balance 710 - Medications Medications: Current Medications Acetaminophen (Tylenol 325mg Tab) 650 mg PO Q6H PRN PRN Reason: Pain, moderate (4-7) Last Admin: 03/06/17 09:34 Dose: 650 mg Famotidine (Pepcid) 20 mg PO DAILY [facility] Last Admin: 03/21/17 15:31 Dose: 20 mg Piperacillin Sod/Tazobactam Sod (Zosyn 2.25 Gm Iv Premix) 2.25 gm in 50 mls @ 100 mls/hr IVPB Q8H [facility] Last Admin: 03/21/17 21:25 Dose: 100 mls/hr Multivitamins (Hexavitamin) 1 tab PO DAILY [facility] Last Admin: 03/21/17 15:32 Dose: 1 tab Potassium Chloride (K-Dur 20 Meq Er Tab) 20 meq PO DAILY [facility] Last Admin: 03/21/17 15:31 Dose: 20 meq Rosuvastatin Calcium (Crestor) 10 mg PO HS [facility] Last Admin: 03/21/17 21:25 Dose: 10 mg Tamsulosin HCl (Flomax) 0.4 mg PO DAILY [facility] Last Admin: 03/21/17 15:31 Dose: 0.4 mg - Labs Labs: 03/21/17 20:00 03/21/17 09:13 PT 16.0 SECONDS (9.7-12.2) H 03/13/17 21:00 INR 1.4 03/13/17 21:00 APTT 35 SECONDS (21-34) H 03/13/17 21:00
[2017-03-22] MEDS: Piperacill/Tazo 2.25gm in Dex 2.25 GM/50 ML BAG IVPB SCH ×3 (03:19→22:16)
--- NOTE | 2017-03-22 09:03 | RAD ---
HISTORY: fever COMPARISON: 03/02/2017 FINDINGS: LUNGS: The lungs are well inflated. No focal consolidation. There is biapical pleural thickening and fibrotic changes in the left upper lobe. PLEURA: No significant pleural effusion identified, no pneumothorax apparent. There are extensive bilateral calcified pleural plaques. CARDIOVASCULAR: Within normal limits. OSSEOUS STRUCTURES: No significant abnormalities. VISUALIZED UPPER ABDOMEN: Normal. OTHER FINDINGS: None. IMPRESSION: No active pulmonary disease. Extensive calcified pleural plaques consistent with the history of prior asbestos exposure.
[2017-03-22] MEDS: Potassium Chloride 20 mEq ER Tab PO SCH (09:08)
[2017-03-22] MEDS: Multiple Vitamins Tab PO SCH (09:08)
[2017-03-22 09:26] LABS: HEMOGLOBIN 10.2 g/dL (12.0-18.0); MEAN CELL VOLUME 86.2 fL (80.0-94.0); MEAN CORPUSCULAR HEMOGLOBIN 29.2 pg (27.0-31.0); MEAN CORPUSCULAR HGB CONC 33.8 g/dL (33.0-37.0); MEAN PLATELET VOLUME 8.2 fL (7.2-11.7); RBC 3.49 Mil/uL (4.40-5.90); RED CELL DISTRIBUTION WIDTH 15.5 % (11.5-14.5); WHITE BLOOD COUNT 3.4 K/uL (4.8-10.8)
--- NOTE | 2017-03-22 09:28 | CP.PCM.PN ---
Subjective - Date & Time of Evaluation Date of Evaluation: 03/22/17 Time of Evaluation: 17:00 - Subjective Subjective: Pt seen and evalautaed, s/p orchitectomy/ TURP obstructive uropathy, pt is seen by vascular is on wound care per podiatry Objective - Vital Signs/Intake and Output Vital Signs (last 24 hours): Temp Pulse Resp BP Pulse Ox 97.5 F L 95 H 20 102/40 L 96 03/22/17 07:35 03/22/17 07:35 03/22/17 07:35 03/22/17 07:35 03/22/17 07:35 - Medications Medications: Current Medications Acetaminophen (Tylenol 325mg Tab) 650 mg PO Q6H PRN PRN Reason: Pain, moderate (4-7) Last Admin: 03/06/17 09:34 Dose: 650 mg Famotidine (Pepcid) 20 mg PO DAILY [facility] Last Admin: 03/22/17 09:08 Dose: 20 mg Piperacillin Sod/Tazobactam Sod (Zosyn 2.25 Gm Iv Premix) 2.25 gm in 50 mls @ 100 mls/hr IVPB Q8H [facility] Last Admin: 03/22/17 03:19 Dose: 100 mls/hr Multivitamins (Hexavitamin) 1 tab PO DAILY [facility] Last Admin: 03/22/17 09:08 Dose: 1 tab Potassium Chloride (K-Dur 20 Meq Er Tab) 20 meq PO DAILY [facility] Last Admin: 03/22/17 09:08 Dose: 20 meq Rosuvastatin Calcium (Crestor) 10 mg PO HS [facility] Last Admin: 03/21/17 21:25 Dose: 10 mg Tamsulosin HCl (Flomax) 0.4 mg PO DAILY [facility] Last Admin: 03/22/17 09:08 Dose: 0.4 mg - Labs Labs: 03/21/17 20:00 03/21/17 09:13 PT 16.0 SECONDS (9.7-12.2) H 03/13/17 21:00 INR 1.4 03/13/17 21:00 APTT 35 SECONDS (21-34) H 03/13/17 21:00 - Constitutional Appears: No Acute Distress - Head Exam Head Exam: ATRAUMATIC, NORMAL INSPECTION, NORMOCEPHALIC - Eye Exam Eye Exam: EOMI, Normal appearance, PERRL Pupil Exam: NORMAL ACCOMODATION, PERRL - ENT Exam ENT Exam: Mucous Membranes Moist - Neck Exam Neck Exam: Full ROM, Normal Inspection. absent: Lymphadenopathy - Respiratory Exam Respiratory Exam: Clear to Ausculation Bilateral, NORMAL BREATHING PATTERN - Cardiovascular Exam Cardiovascular Exam: REGULAR RHYTHM, +S1, +S2. absent: Murmur - GI/Abdominal Exam GI & Abdominal Exam: Soft, Normal Bowel Sounds. absent: Tenderness Assessment and Plan (1) CA prostate, adenoca Status: Acute (2) Sepsis Status: Acute (3) UTI (urinary tract infection) Status: Acute (4) Acute urinary retention Status: Acute (5) CAD (coronary artery disease) Status: Acute (6) Hyponatremia Status: Acute (7) S/P TURP (status post transurethral resection of prostate) Status: Acute (8) Malnourished Status: Acute (9) S/P orchiectomy Status: Acute
[2017-03-22 09:35] LABS: BLOOD UREA NITROGEN 6 mg/dL (9-20); GFR AFRICAN-AMERICAN > 60; GFR NON-AFRICAN AMERICAN > 60
--- NOTE | 2017-03-22 12:04 | CP.PCM.PN ---
Subjective - Date & Time of Evaluation Date of Evaluation: 03/22/17 Time of Evaluation: 12:04 - Subjective Subjective: pt seen and examined s/o orchiectomy bp low stable na 131 pt comfortable, denies any pain sob cp dizziness ehadache cough nausea vomiting diarrhea Objective - Vital Signs/Intake and Output Vital Signs (last 24 hours): Temp Pulse Resp BP Pulse Ox 97.5 F L 95 H 20 102/40 L 96 03/22/17 07:35 03/22/17 07:35 03/22/17 07:35 03/22/17 07:35 03/22/17 07:35 - Medications Medications: Current Medications Acetaminophen (Tylenol 325mg Tab) 650 mg PO Q6H PRN PRN Reason: Pain, moderate (4-7) Last Admin: 03/06/17 09:34 Dose: 650 mg Famotidine (Pepcid) 20 mg PO DAILY [facility] Last Admin: 03/22/17 09:08 Dose: 20 mg Piperacillin Sod/Tazobactam Sod (Zosyn 2.25 Gm Iv Premix) 2.25 gm in 50 mls @ 100 mls/hr IVPB Q8H [facility] Last Admin: 03/22/17 11:16 Dose: 100 mls/hr Multivitamins (Hexavitamin) 1 tab PO DAILY [facility] Last Admin: 03/22/17 09:08 Dose: 1 tab Potassium Chloride (K-Dur 20 Meq Er Tab) 20 meq PO DAILY [facility] Last Admin: 03/22/17 09:08 Dose: 20 meq Rosuvastatin Calcium (Crestor) 10 mg PO HS [facility] Last Admin: 03/21/17 21:25 Dose: 10 mg Tamsulosin HCl (Flomax) 0.4 mg PO DAILY [facility] Last Admin: 03/22/17 09:08 Dose: 0.4 mg - Labs Labs: 03/22/17 09:05 03/22/17 09:05 PT 16.0 SECONDS (9.7-12.2) H 03/13/17 21:00 INR 1.4 03/13/17 21:00 APTT 35 SECONDS (21-34) H 03/13/17 21:00 - Constitutional Appears: Non-toxic, No Acute Distress, Chronically Ill - Head Exam Head Exam: NORMAL INSPECTION - Eye Exam Eye Exam: Normal appearance, PERRL - ENT Exam ENT Exam: Mucous Membranes Moist, Normal Exam - Neck Exam Neck Exam: Normal Inspection - Respiratory Exam Respiratory Exam: Clear to Ausculation Bilateral, NORMAL BREATHING PATTERN - Cardiovascular Exam Cardiovascular Exam: REGULAR RHYTHM, RRR - GI/Abdominal Exam GI & Abdominal Exam: Distended, Soft - Extremities Exam Extremities Exam: Normal Inspection - Neurological Exam Neurological Exam: Alert, Awake - Psychiatric Exam Psychiatric exam: Normal Affect, Normal Mood - Skin Skin Exam: Dry, Intact Assessment and Plan (1) CA prostate, adenoca Status: Acute (2) Hyponatremia Status: Acute (3) S/P TURP (status post transurethral resection of prostate) Status: Acute (4) SIADH (syndrome of inappropriate ADH production) Status: Acute (5) UTI (urinary tract infection) Status: Acute - Assessment and Plan (Free Text) Assessment: maintain fluid restriction daily labs
--- NOTE | 2017-03-22 13:50 | CP.PCM.PN ---
Subjective - Date & Time of Evaluation Date of Evaluation: 03/22/17 Time of Evaluation: 13:49 - Subjective Subjective: mentally alert reviewed options and management will do angiogram to treat left leg Objective - Vital Signs/Intake and Output Vital Signs (last 24 hours): Temp Pulse Resp BP Pulse Ox 97.5 F L 95 H 20 102/40 L 96 03/22/17 07:35 03/22/17 07:35 03/22/17 07:35 03/22/17 07:35 03/22/17 07:35 - Medications Medications: Current Medications Acetaminophen (Tylenol 325mg Tab) 650 mg PO Q6H PRN PRN Reason: Pain, moderate (4-7) Last Admin: 03/06/17 09:34 Dose: 650 mg Famotidine (Pepcid) 20 mg PO DAILY [facility] Last Admin: 03/22/17 09:08 Dose: 20 mg Piperacillin Sod/Tazobactam Sod (Zosyn 2.25 Gm Iv Premix) 2.25 gm in 50 mls @ 100 mls/hr IVPB Q8H [facility] Last Admin: 03/22/17 11:16 Dose: 100 mls/hr Multivitamins (Hexavitamin) 1 tab PO DAILY [facility] Last Admin: 03/22/17 09:08 Dose: 1 tab Potassium Chloride (K-Dur 20 Meq Er Tab) 20 meq PO DAILY [facility] Last Admin: 03/22/17 09:08 Dose: 20 meq Rosuvastatin Calcium (Crestor) 10 mg PO HS [facility] Last Admin: 03/21/17 21:25 Dose: 10 mg Tamsulosin HCl (Flomax) 0.4 mg PO DAILY [facility] Last Admin: 03/22/17 09:08 Dose: 0.4 mg - Labs Labs: 03/22/17 09:05 03/22/17 09:05 PT 16.0 SECONDS (9.7-12.2) H 03/13/17 21:00 INR 1.4 03/13/17 21:00 APTT 35 SECONDS (21-34) H 03/13/17 21:00
--- NOTE | 2017-03-22 14:58 | OP ---
PROCEDURE DATE: 03/21/2017 PREOPERATIVE DIAGNOSIS: Prostate cancer. POSTOPERATIVE DIAGNOSIS: Prostate cancer. PROCEDURE: Bilateral orchiectomy. OPERATING SURGEON: Erendira Glez MD. DESCRIPTION OF PROCEDURE: The patient was in the supine position. The genitalia had been prepped and draped sterilely. Anesthesia was provided by the anesthesiologist. In addition, lidocaine 1% solution was used for infiltration of the spermatic cord as well as the skin incision. A transverse skin incision was made overlying the mid scrotum. The incision was extended through skin and subcutaneous tissues down to the level of the tunica vaginalis. The left testicle was delivered through the tunica vaginalis incision. The spermatic cord was divided between hemostatic clamps. Proximal ligatures and suture ligatures of 0 Dexon were placed for hemostasis. The testicle was subsequently removed. The wound was inspected for hemostasis. The tunica vaginalis was closed with continuous locking sutures of 3-0 chromic. The skin incision was then shifted over to the right side. The incision was extended through the subcutaneous tissues down to the level of the right tunica vaginalis. The right testicle was delivered. The spermatic cord was divided. Proximal ligatures and suture ligatures of 0 Dexon were placed. Hemostasis was complete. The wound was irrigated. The wound was then closed twice with continuous locking suture tunica vaginalis. The skin incision was reapproximated with interrupted suture of 3-0 chromic. A sterile dressing was applied. was applied. The patient tolerated the procedure without complication. Erendira Glez MD cc: Rodriguez. Jaxon Rollins MD
[2017-03-23] MEDS: Piperacill/Tazo 2.25gm in Dex 2.25 GM/50 ML BAG IVPB SCH (03:44)
[2017-03-23 07:16] LABS: EOS # 0.2 K/uL (0.0-0.7); EOS % 5.1 % (0.0-4.0); HEMOGLOBIN 8.5 g/dL (12.0-18.0); LYMPH # 1.1 K/uL (1.0-4.3); LYMPH % 36.6 % (20.0-40.0); MEAN CELL VOLUME 84.9 fL (80.0-94.0); MEAN CORPUSCULAR HEMOGLOBIN 28.7 pg (27.0-31.0); MEAN CORPUSCULAR HGB CONC 33.8 g/dL (33.0-37.0); MEAN PLATELET VOLUME 8.2 fL (7.2-11.7); MONO # 0.3 K/uL (0.0-0.8); MONO % 9.8 % (0.0-10.0); NEUT # 1.5 K/uL (1.8-7.0); NEUT % 47.5 % (50.0-75.0); RBC 2.96 Mil/uL (4.40-5.90); WHITE BLOOD COUNT 3.1 K/uL (4.8-10.8)
[2017-03-23 07:41] LABS: BLOOD UREA NITROGEN 6 mg/dL (9-20); CALCIUM 6.8 mg/dl (8.6-10.4); GFR AFRICAN-AMERICAN > 60; GFR NON-AFRICAN AMERICAN > 60
--- NOTE | 2017-03-23 08:19 | CP.PCM.PN ---
Subjective - Date & Time of Evaluation Date of Evaluation: 03/23/17 Time of Evaluation: 07:30 - Subjective Subjective: no complaints chronically ill debilitated unable to obtain ROS due to clinical condition Objective - Vital Signs/Intake and Output Vital Signs (last 24 hours): Temp Pulse Resp BP Pulse Ox 97.9 F 81 20 99/46 L 95 03/22/17 23:45 03/22/17 23:45 03/22/17 23:45 03/22/17 23:45 03/22/17 23:45 Intake and Output: 03/23/17 03/23/17 06:59 18:59 Output Total 200 Balance -200 - Medications Medications: Current Medications Acetaminophen (Tylenol 325mg Tab) 650 mg PO Q6H PRN PRN Reason: Pain, moderate (4-7) Last Admin: 03/22/17 22:20 Dose: 650 mg Famotidine (Pepcid) 20 mg PO DAILY [facility] Last Admin: 03/22/17 09:08 Dose: 20 mg Piperacillin Sod/Tazobactam Sod (Zosyn 2.25 Gm Iv Premix) 2.25 gm in 50 mls @ 100 mls/hr IVPB Q8H [facility] Last Admin: 03/23/17 03:44 Dose: 100 mls/hr Multivitamins (Hexavitamin) 1 tab PO DAILY [facility] Last Admin: 03/22/17 09:08 Dose: 1 tab Potassium Chloride (K-Dur 20 Meq Er Tab) 20 meq PO DAILY [facility] Last Admin: 03/22/17 09:08 Dose: 20 meq Rosuvastatin Calcium (Crestor) 10 mg PO HS [facility] Last Admin: 03/22/17 22:16 Dose: 10 mg Tamsulosin HCl (Flomax) 0.4 mg PO DAILY [facility] Last Admin: 03/22/17 09:08 Dose: 0.4 mg - Labs Labs: 03/23/17 07:06 03/23/17 07:06 PT 16.0 SECONDS (9.7-12.2) H 03/13/17 21:00 INR 1.4 03/13/17 21:00 APTT 35 SECONDS (21-34) H 03/13/17 21:00 - Constitutional Appears: Non-toxic, Chronically Ill - Head Exam Head Exam: ATRAUMATIC, NORMAL INSPECTION - Eye Exam Eye Exam: EOMI, Normal appearance - ENT Exam ENT Exam: Mucous Membranes Moist - Neck Exam Neck Exam: Full ROM. absent: Lymphadenopathy - Respiratory Exam Respiratory Exam: NORMAL BREATHING PATTERN. absent: Accessory Muscle Use - Cardiovascular Exam Cardiovascular Exam: REGULAR RHYTHM. absent: Rubs - Extremities Exam Additional comments: left leg bandaged - Neurological Exam Neurological Exam: Alert. absent: Oriented x3 Assessment and Plan - Assessment and Plan (Free Text) Assessment: chronic hyponatremia continue fluid restriction and monitor hold on tolvaptan for now possible angiogram today
[2017-03-23] MEDS ORDERED: Iodixanol 320 MG/ML 200 ML BOTTLE IV ONE (09:03)
[2017-03-23] MEDS ORDERED: Propofol 10 mg/ml Inj (20 ML) ONE (09:05)
[2017-03-23] MEDS ORDERED: Midazolam 2 MG/2 ML VIAL ONE ×3 (09:05→13:45)
--- NOTE | 2017-03-23 10:35 | PCM.SURG1 ---
Surgeon's Initial Post Op Note - Surgeon's Notes Surgeon: caitlin Fur Liner: 0 Type of Anesthesia: IV Sedation Anesthesia Administered By: dana Pre-Operative Diagnosis: ischemic foot ulcer Operative Findings: severe tibial disease. focal stenosis 90% distal posterior tibial left. peroneal and anterior tibial occluded Post-Operative Diagnosis: same Operation Performed: aortofemoral angiogram with bilateral runoff. selective catherization of left femoral artery. balloon angioplasty of distal posterior tibial with 2 mm balloon Specimen/Specimens Removed: 9 Estimated Blood Loss: EBL {In ML}: 20 Blood Products Given: N/A Drains Used: No Drains Post-Op Condition: Good Date of Surgery/Procedure: 03/23/17 Time of Surgery/Procedure: 10:36
[2017-03-23] MEDS ORDERED: Phenylephrine 10 mg/ml Inj ONE ×3 (12:16→12:17)
[2017-03-23] MEDS ORDERED: Midazolam 2 MG/2 ML VIAL IVP ONE ×2 (12:47→13:46)
[2017-03-23] MEDS ORDERED: Digoxin 500 mcg/2ml (0.5 mg/2ml) Inj ONE (12:55)
--- NOTE | 2017-03-23 13:01 | PCM.RRT ---
<Jeffery Dextern - Last Filed: 03/23/17 21:11> ROUNDING MACHINE OPERATOR Nurses Assessment - Situation Date: 03/23/17 New IV Insertion Tolerance: Good - Diagnostic Test Ordered EKG: Yes Chest X-Ray: No CT Scan: Yes - Stat Labs Ordered ROUNDING MACHINE OPERATOR Stat Labs Ordered: CBC, TROPONIN, ABG CPR started during ROUNDING MACHINE OPERATOR?: No - Recommendations 5) ROUNDING MACHINE OPERATOR Level of Care Recommendations: Transfer to ICU Notifications: Attending Physician, Consultations, Family or Designated Caregiver - Head Head Exam: ATRAUMATIC, NORMAL INSPECTION, NORMOCEPHALIC - Eyes Eye Exam: EOMI, Normal appearance, PERRL - Respiratory Exam Respiratory Exam: Clear to Ausculation Bilateral, NORMAL BREATHING PATTERN. 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 -Patient was placed in Trendelenburg Position -CBC, CMP, Mg, Phos ordered -2 units of PRBC'S ordered. Consent obtained -Laya panel -ABG shock panel -ICU consult ordered. -Patient transferred to ICU. -PMD Dr. aMrtines made aware. -Family was called and made aware. <Swathi Davalos V - Last Filed: 03/25/17 01:36> ROUNDING MACHINE OPERATOR Nurses Assessment - Vital Signs Vital Signs: Rapid Response Vital Sign Blood Pressure 46/28 Pulse Rate 147 Respiratory Rate 25 Temperature 97 F Oxygen Saturation 100 - Vital Signs at end of ROUNDING MACHINE OPERATOR Vital Signs at end of ROUNDING MACHINE OPERATOR: Rapid Response End Vital Sign Blood Pressure 67/38 Pulse Rate 137 Respiratory Rate 30 Temperature 97.3 F O2 Sat by Pulse Oximetry 100 Attending/Attestation - Attestation I have personally seen and examined this patient.: Yes I have fully participated in the care of the patient.: Yes I have reviewed all pertinent clinical information, including history, physical exam and plan: Yes Notes (Text): this is late computer entry for 03/23/17. Rapid response: hypotension, new-onset atrial fibrillation Brief Hospitalist Note: Patient seen in post cardiac cath. patient has received tibial stent for left lower extremity. Patient is awake, alert, conversant but his blood pressure is severely low. Patient is order for IV fluids and phenylephrine to increase blood pressure as well in [place] to maintain perfusion. EKG shows atrial fibrillation per view of EMR there is no mention of any prior history of atrial fibrillation. Prior to OR, patient has hemoglobin drop from 10 to 8, low potassium which was supplemented. Patient has midline over right upper extremity, inspite of many attempts to get a second IV lines patient's left extremity is swollen. Surgery resident for Dr. Tate made aware, will rule out bleeding given hemoglobin drop. Asked for ICU evaluation. patient seen, evaluated and accepted to ICU. Resident, Snow Spann, PGY-2 has spoken with patient's POA, witnessed myself and Uche RN, and Oly RN, will allow for pressors and central line for the patient. Patient has POLST in 01/2017. The POA is unware of the POLST, recalls POLST 09/2016. patient's consent forms in the chart with POA phone number attached. She will be coming in today. Patient attempted for cardioversion given new onset atrial fibillration. patient's PMD: Dr lopez notifed by the resident and surgeon notifed as well. Time spent: 40 minutes.
[2017-03-23] MEDS ORDERED: Sodium Chloride 0.9% 1,000 ML IV ONE (13:56)
[2017-03-23] MEDS ORDERED: Phenylephrine 30 MG in Sodium Chloride 0.9% 250 ML IV PRN (14:00)
[2017-03-23] MEDS ORDERED: Sodium Chloride 0.9% 1,000 ML IV SCH ×2 (14:00→16:45)
[2017-03-23 14:16] LABS: ABG ALLEN TEST PO; ARTERIAL BLOOD GAS HCO3 17.6 mmol/L (21-28); ARTERIAL BLOOD GAS O2 SAT 99.7 % (95-98); ARTERIAL BLOOD GAS PCO2 24 mm/Hg (35-45); ARTERIAL BLOOD GAS PH 7.37 (7.35-7.45); ARTERIAL BLOOD GAS PO2 122 mm/Hg (80-100); ARTERIAL BLOOD GAS TCO2 14.6 mmol/L (22-28)
[2017-03-23] MEDS ORDERED: Digoxin 500 mcg/2ml (0.5 mg/2ml) Inj IVP ONE ×2 (14:30→22:54)
[2017-03-23 14:31] LABS: BASO # 0.1 K/uL (0.0-0.2); BASO % 1.1 % (0.0-2.0); EOS # 0.2 K/uL (0.0-0.7); EOS % 3.6 % (0.0-4.0); HEMOGLOBIN 9.6 g/dL (12.0-18.0); LYMPH # 1.5 K/uL (1.0-4.3); LYMPH % 31.2 % (20.0-40.0); MEAN CELL VOLUME 86.5 fL (80.0-94.0); MEAN CORPUSCULAR HEMOGLOBIN 28.9 pg (27.0-31.0); MEAN CORPUSCULAR HGB CONC 33.4 g/dL (33.0-37.0); MEAN PLATELET VOLUME 8.6 fL (7.2-11.7); MONO # 0.4 K/uL (0.0-0.8); MONO % 7.4 % (0.0-10.0); NEUT # 2.7 K/uL (1.8-7.0); NEUT % 56.7 % (50.0-75.0); NRBC % 0.2 % (0.0-2.0); RBC 3.33 Mil/uL (4.40-5.90); RED CELL DISTRIBUTION WIDTH 15.4 % (11.5-14.5); WHITE BLOOD COUNT 4.8 K/uL (4.8-10.8)
[2017-03-23] MEDS: Phenylephrine 30 MG in Dextrose 5% In Water 250 ML IV PRN ×2 (14:38→20:21)
[2017-03-23 14:55] LABS: CK-MB 1.53 ng/mL (0.0-3.38)
[2017-03-23 15:07] LABS: ALB/GLOB RATIO 0.7 (1.0-2.1); ALBUMIN 1.8 g/dL (3.5-5.0); ALT/SGPT 24 U/L (21-72); AST/SGOT 18 U/L (17-59); BLOOD UREA NITROGEN 5 mg/dL (9-20); GFR AFRICAN-AMERICAN > 60; GFR NON-AFRICAN AMERICAN > 60; MAGNESIUM 1.3 mg/dL (1.6-2.3)
[2017-03-23] MEDS ORDERED: Iodixanol 320 MG/ML 100 ML BOTTLE IV ONE (15:18)
[2017-03-23 15:19] LABS: INR 1.7; PROTHROMBIN TIME 19.5 SECONDS (9.7-12.2)
--- NOTE | 2017-03-23 15:29 | RAD ---
HISTORY: Subclavian TLC COMPARISON: 03/17/2017 FINDINGS: LUNGS: No significant interval change compared to the prior examination(s). PLEURA: No significant pleural effusion identified, no pneumothorax apparent. Incidental finding(s): Calcified pleural plaques Related to prior exposure to asbestos. CARDIOVASCULAR: No radiographic findings to suggest acute or significant cardiovascular disease. Central line inserted via left subclavian approach noted. Tip in the SVC. No pneumothorax. OSSEOUS STRUCTURES: No significant abnormalities. VISUALIZED UPPER ABDOMEN: Normal. OTHER FINDINGS: None. IMPRESSION: Satisfactory placement of venous access catheter. No pneumothorax.
[2017-03-23] MEDS ORDERED: Potassium Chl 40 mEq in D5-1/2 1,000 ML IV SCH (15:30)
--- NOTE | 2017-03-23 15:48 | CP.PCM.CON ---
<IsabellamadelynJose - Last Filed: 03/23/17 15:25> History of Present Illness - History of Present Illness History of Present Illness: CCU Consult Note HPI: 81M who presented initially from rehab with dark urine in [place]. Patient has a HX of prostate cancer, PVD, HTN HLD, carotid stenosis, COPD. 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 Patient went into Afib s/p peripheral angiogram. CCU attending called. Patient trasferred to ICU. No previous documentation of Afib. Attempted cardioverson 2x with no success. Patient remained tachy and hypotensive. Dig was given. TLC inserted. Pressors were started. Fluid Bolus x2. Pending CTA/CT abd/pelvis. Past Patient History - Infectious Disease Hx of Infectious Diseases: None - Past Medical History & Family History Past Medical History?: No - Past Social History Smoking Status: Light Smoker < 10 Cigarettes Daily Chewing Tobacco Use: No Cigar Use: No Alcohol: None Drugs: Denies Home Situation {Lives}: Prison - CARDIAC Hx Hypertension: Yes - PULMONARY Hx Chronic Obstructive Pulmonary Disease (COPD): Yes - NEUROLOGICAL HX Cerebrovascular Accident: Yes (7 YEARS AGO) - HEENT Hx HEENT Problems: No - RENAL Hx Chronic Kidney Disease: No - ENDOCRINE/METABOLIC Hx Endocrine Disorders: No - HEMATOLOGICAL/ONCOLOGICAL Hx Blood Disorders: No Hx Blood Transfusions: Yes Hx Blood Transfusion Reaction: No - INTEGUMENTARY Hx Dermatological Problems: No - MUSCULOSKELETAL/RHEUMATOLOGICAL Hx Falls: Yes - GASTROINTESTINAL Hx Gastrointestinal Disorders: No - GENITOURINARY/GYNECOLOGICAL Hx Genitourinary Disorders: Yes Hx Prostate Cancer: Yes Other/Comment: uropathy, UTI - PSYCHIATRIC Hx Substance Use: No - SURGICAL HISTORY Hx Surgeries: No Hx Cardiac Catheterization: Yes (x2) Other/Comment: hx of prostate biopsy 11/2016. lt.hip surgery w/pins - ANESTHESIA Hx Anesthesia: Yes Hx Anesthesia Reactions: No Hx Malignant Hyperthermia: No Meds Allergies/Adverse Reactions: Allergies Allergy/AdvReac Type Severity Reaction Status Date / Time No Known Allergies Allergy Verified 12/30/16 11:26 - Medications Medications: Current Medications Acetaminophen (Tylenol 325mg Tab) 650 mg PO Q6H PRN PRN Reason: Pain, moderate (4-7) Last Admin: 03/22/17 22:20 Dose: 650 mg Sodium Chloride (Sodium Chloride 0.9%) 1,000 mls @ 100 mls/hr IV .Q10H [facility] Last Admin: 03/23/17 14:00 Dose: 100 mls/hr Phenylephrine HCl 30 mg/ (Dextrose) 253 mls @ 10.12 mls/hr IV .Q24H PRN; Protocol; 20 MCG/MIN PRN Reason: TITRATE PER MD ORDER Last Admin: 03/23/17 14:38 Dose: 20 mcg/min, 10.12 mls/hr Piperacillin Sod/Tazobactam Sod (Zosyn 3.375 Gm Iv Premix) 3.375 gm in 50 mls @ 100 mls/hr IVPB Q6H [facility]UL[facility] Potassium Chloride (Potassium Chloride 20 Meq/100 Ml) 20 meq in 100 mls @ 50 mls/hr IVPB ONCE ONE Stop: 03/23/17 17:22 Multivitamins (Hexavitamin) 1 tab PO DAILY [facility] Last Admin: 03/22/17 09:08 Dose: 1 tab Rosuvastatin Calcium (Crestor) 10 mg PO HS [facility] Last Admin: 03/22/17 22:16 Dose: 10 mg Tamsulosin HCl (Flomax) 0.4 mg PO DAILY [facility] Last Admin: 03/22/17 09:08 Dose: 0.4 mg Physical Exam - Constitutional Appears: Chronically Ill - Head Exam Head Exam: ATRAUMATIC, NORMAL INSPECTION, NORMOCEPHALIC Additional comments: contracted - Eye Exam Eye Exam: EOMI Pupil Exam: NORMAL ACCOMODATION - ENT Exam ENT Exam: Mucous Membranes Dry - Neck Exam Additional comments: contracted - Respiratory Exam Respiratory Exam: Clear to Auscultation Bilateral, NORMAL BREATHING PATTERN - Cardiovascular Exam Cardiovascular Exam: Tachycardia, Irregular Rhythm - GI/Abdominal Exam GI & Abdominal Exam: Normal Bowel Sounds, Soft. absent: Distended, Tenderness - Extremities Exam Extremities exam: Negative for: joint swelling, tenderness Additional comments: stent insertion site R. fem - Neurological Exam Neurological exam: Alert, Oriented x3 - Psychiatric Exam Psychiatric exam: Normal Affect, Normal Mood - Skin Skin Exam: Dry, Intact, Normal Color, Warm Results - Vital Signs Recent Vital Signs: Last Vital Signs Temp 97.1 F L 03/23/17 07:20 Pulse 134 H 03/23/17 14:38 Resp 20 03/23/17 07:20 BP 97/67 L 03/23/17 14:38 Pulse Ox 100 03/23/17 07:20 - Labs Result Diagrams: 03/23/17 14:24 03/23/17 14:24 Labs: Laboratory Results - last 24 hr 03/23/17 03/23/17 03/23/17 07:06 07:06 14:13 WBC 3.1 L RBC 2.96 L Hgb 8.5 L Hct 25.1 L MCV 84.9 MCH 28.7 MCHC 33.8 RDW 15.0 H Plt Count 149 MPV 8.2 Neut % (Auto) 47.5 L Lymph % (Auto) 36.6 [place] % (Auto) 9.8 Eos % (Auto) 5.1 H Baso % (Auto) 1.0 Neut # 1.5 L Lymph # 1.1 [place] # 0.3 Eos # 0.2 Baso # 0.0 PT INR APTT Puncture Site Rra pCO2 24 L pO2 122 H HCO3 17.6 L ABG pH 7.37 ABG Total CO2 14.6 L ABG O2 Saturation 99.7 H ABG Base Excess -9.5 L Michael Test Po ABG Potassium 3.3 L A-a O2 Difference 69.0 Respiratory Index 0.6 Glucose 63 L Lactate 1.3 Liter Flow 3.0 FiO2 31.0 Sodium 128 L 136.0 Potassium 3.3 L Chloride 102 110.0 H Carbon Dioxide 23 Anion Gap 6 L BUN 6 L Creatinine 0.5 L Est GFR ( Amer) > 60 Est GFR (Non-Af Amer) > 60 Random Glucose 72 L Calcium 6.8 L Phosphorus Magnesium Total Bilirubin AST ALT Alkaline Phosphatase Total Creatine Kinase CK-MB (Mass) Troponin I Total Protein Albumin Globulin Albumin/Globulin Ratio Arterial Blood Potassium 3.3 L Blood Type 03/23/17 03/23/17 03/23/17 14:24 14:24 14:24 WBC 4.8 D RBC 3.33 L Hgb 9.6 L Hct 28.8 L MCV 86.5 MCH 28.9 MCHC 33.4 RDW 15.4 H Plt Count 173 MPV 8.6 Neut % (Auto) 56.7 Lymph % (Auto) 31.2 [place] % (Auto) 7.4 Eos % (Auto) 3.6 Baso % (Auto) 1.1 Neut # 2.7 Lymph # 1.5 [place] # 0.4 Eos # 0.2 Baso # 0.1 PT INR APTT Puncture Site pCO2 pO2 HCO3 ABG pH ABG Total CO2 ABG O2 Saturation ABG Base Excess Michael Test ABG Potassium A-a O2 Difference Respiratory Index Glucose Lactate Liter Flow FiO2 Sodium 131 L Potassium 3.3 L Chloride 108 H Carbon Dioxide 16 L Anion Gap 11 BUN 5 L Creatinine 0.4 L Est GFR ( Amer) > 60 Est GFR (Non-Af Amer) > 60 Random Glucose 56 L Calcium 6.0 L* Phosphorus 2.4 L Magnesium 1.3 L Total Bilirubin 0.4 AST 18 ALT 24 Alkaline Phosphatase 44 Total Creatine Kinase 29 L CK-MB (Mass) 1.53 Troponin I 0.0200 Total Protein 4.2 L Albumin 1.8 L Globulin 2.4 Albumin/Globulin Ratio 0.7 L Arterial Blood Potassium Blood Type O POSITIVE 03/23/17 14:24 WBC RBC Hgb Hct MCV MCH MCHC RDW Plt Count MPV Neut % (Auto) Lymph % (Auto) [place] % (Auto) Eos % (Auto) Baso % (Auto) Neut # Lymph # [place] # Eos # Baso # PT 19.5 H INR 1.7 APTT 49 H Puncture Site pCO2 pO2 HCO3 ABG pH ABG Total CO2 ABG O2 Saturation ABG Base Excess Michael Test ABG Potassium A-a O2 Difference Respiratory Index Glucose Lactate Liter Flow FiO2 Sodium Potassium Chloride Carbon Dioxide Anion Gap BUN Creatinine Est GFR ( Amer) Est GFR (Non-Af Amer) Random Glucose Calcium Phosphorus Magnesium Total Bilirubin AST ALT Alkaline Phosphatase Total Creatine Kinase CK-MB (Mass) Troponin I Total Protein Albumin Globulin Albumin/Globulin Ratio Arterial Blood Potassium Blood Type Assessment & Plan - Assessment and Plan (Free Text) Assessment: 81M h/o prostate cancer, PVD, HTN HLD, carotid stenosis, COPD presents w/ atrial fibrillation 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 Subclavian central venous line placed. Digoxin 0.25 IV ONCE. Phenylephrine 30 mg IV Q24 PRN. Crestor 10 PO HS : Urology([facility]). Flomax 0.4 PO Daily GI: Dietary consulted. Ensure ordered. CT A/P - R/O retroperitoneal hem Renal: Nephrology(Latoya). Potassium Chloride 20meq MSK: Podiatry([place]). Sacral decub Wound care consulted. ID: ID ([email or web address]). Blood cultures negative. Zosyn 2.25 IV Q8. Prophylaxis: DVT: SCDs GI: Protonix 40 mg IVP Daily <Jl Lowe S - Last Filed: 03/23/17 16:38> Meds - Medications Medications: Current Medications Acetaminophen (Tylenol 325mg Tab) 650 mg PO Q6H PRN PRN Reason: Pain, moderate (4-7) Last Admin: 03/22/17 22:20 Dose: 650 mg Sodium Chloride (Sodium Chloride 0.9%) 1,000 mls @ 100 mls/hr IV .Q10H [facility] Last Admin: 03/23/17 14:00 Dose: 100 mls/hr Phenylephrine HCl 30 mg/ (Dextrose) 253 mls @ 10.12 mls/hr IV .Q24H PRN; Protocol; 20 MCG/MIN PRN Reason: TITRATE PER MD ORDER Last Admin: 03/23/17 14:38 Dose: 20 mcg/min, 10.12 mls/hr Piperacillin Sod/Tazobactam Sod (Zosyn 3.375 Gm Iv Premix) 3.375 gm in 50 mls @ 100 mls/hr IVPB Q6H [facility] Last Admin: 03/23/17 16:36 Dose: 100 mls/hr Potassium Chloride (Potassium Chloride 20 Meq/100 Ml) 20 meq in 100 mls @ 50 mls/hr IVPB ONCE ONE Stop: 03/23/17 17:22 Sodium Chloride (Sodium Chloride 0.9%) 500 mls @ 1,000 mls/hr IV .Q30M ONE Stop: 03/23/17 17:02 Vancomycin HCl 1 gm/ Sodium (Chloride) 200 mls @ 133.333 mls/hr IVPB STAT STA Stop: 03/23/17 18:02 Multivitamins (Hexavitamin) 1 tab PO DAILY [facility] Last Admin: 03/22/17 09:08 Dose: 1 tab Rosuvastatin Calcium (Crestor) 10 mg PO HS [facility] Last Admin: 03/22/17 22:16 Dose: 10 mg Tamsulosin HCl (Flomax) 0.4 mg PO DAILY [facility] Last Admin: 03/22/17 09:08 Dose: 0.4 mg Results - Vital Signs Recent Vital Signs: Last Vital Signs Temp 97.1 F L 03/23/17 07:20 Pulse 134 H 03/23/17 14:38 Resp 20 03/23/17 07:20 BP 97/67 L 03/23/17 14:38 Pulse Ox 100 03/23/17 07:20 - Labs Result Diagrams: 03/23/17 14:24 03/23/17 14:24 Labs: Laboratory Results - last 24 hr 03/23/17 03/23/17 03/23/17 07:06 07:06 14:13 WBC 3.1 L RBC 2.96 L Hgb 8.5 L Hct 25.1 L MCV 84.9 MCH 28.7 MCHC 33.8 RDW 15.0 H Plt Count 149 MPV 8.2 Neut % (Auto) 47.5 L Lymph % (Auto) 36.6 [place] % (Auto) 9.8 Eos % (Auto) 5.1 H Baso % (Auto) 1.0 Neut # 1.5 L Lymph # 1.1 [place]ye # 0.3 Eos # 0.2 Baso # 0.0 PT INR APTT Puncture Site Rra pCO2 24 L pO2 122 H HCO3 17.6 L ABG pH 7.37 ABG Total CO2 14.6 L ABG O2 Saturation 99.7 H ABG Base Excess -9.5 L Michael Test Po ABG Potassium 3.3 L A-a O2 Difference 69.0 Respiratory Index 0.6 Glucose 63 L Lactate 1.3 Liter Flow 3.0 FiO2 31.0 Sodium 128 L 136.0 Potassium 3.3 L Chloride 102 110.0 H Carbon Dioxide 23 Anion Gap 6 L BUN 6 L Creatinine 0.5 L Est GFR ( Amer) > 60 Est GFR (Non-Af Amer) > 60 Random Glucose 72 L Calcium 6.8 L Phosphorus Magnesium Total Bilirubin AST ALT Alkaline Phosphatase Total Creatine Kinase CK-MB (Mass) Troponin I Total Protein Albumin Globulin Albumin/Globulin Ratio Arterial Blood Potassium 3.3 L Blood Type Antibody Screen 03/23/17 03/23/17 03/23/17 14:24 14:24 14:24 WBC 4.8 D RBC 3.33 L Hgb 9.6 L Hct 28.8 L MCV 86.5 MCH 28.9 MCHC 33.4 RDW 15.4 H Plt Count 173 MPV 8.6 Neut % (Auto) 56.7 Lymph % (Auto) 31.2 [place] % (Auto) 7.4 Eos % (Auto) 3.6 Baso % (Auto) 1.1 Neut # 2.7 Lymph # 1.5 [place] # 0.4 Eos # 0.2 Baso # 0.1 PT INR APTT Puncture Site pCO2 pO2 HCO3 ABG pH ABG Total CO2 ABG O2 Saturation ABG Base Excess Michael Test ABG Potassium A-a O2 Difference Respiratory Index Glucose Lactate Liter Flow FiO2 Sodium 131 L Potassium 3.3 L Chloride 108 H Carbon Dioxide 16 L Anion Gap 11 BUN 5 L Creatinine 0.4 L Est GFR ( Amer) > 60 Est GFR (Non-Af Amer) > 60 Random Glucose 56 L Calcium 6.0 L* Phosphorus 2.4 L Magnesium 1.3 L Total Bilirubin 0.4 AST 18 ALT 24 Alkaline Phosphatase 44 Total Creatine Kinase 29 L CK-MB (Mass) 1.53 Troponin I 0.0200 Total Protein 4.2 L Albumin 1.8 L Globulin 2.4 Albumin/Globulin Ratio 0.7 L Arterial Blood Potassium Blood Type O POSITIVE Antibody Screen Negative 03/23/17 14:24 WBC RBC Hgb Hct MCV MCH MCHC RDW Plt Count MPV Neut % (Auto) Lymph % (Auto) [place] % (Auto) Eos % (Auto) Baso % (Auto) Neut # Lymph # [place] # Eos # Baso # PT 19.5 H INR 1.7 APTT 49 H Puncture Site pCO2 pO2 HCO3 ABG pH ABG Total CO2 ABG O2 Saturation ABG Base Excess Michael Test ABG Potassium A-a O2 Difference Respiratory Index Glucose Lactate Liter Flow FiO2 Sodium Potassium Chloride Carbon Dioxide Anion Gap BUN Creatinine Est GFR ( Amer) Est GFR (Non-Af Amer) Random Glucose Calcium Phosphorus Magnesium Total Bilirubin AST ALT Alkaline Phosphatase Total Creatine Kinase CK-MB (Mass) Troponin I Total Protein Albumin Globulin Albumin/Globulin Ratio Arterial Blood Potassium Blood Type Antibody Screen Attending/Attestation - Attestation I have personally seen and examined this patient.: Yes I have fully participated in the care of the patient.: Yes I have reviewed all pertinent clinical information: Yes Notes (Text): 03/23/17 16:36 Patient seen and examined 81-year-old male transferred to ICU for hypotension and A. fib with rapid ventricular rate of new-onset Status post cardioversion 2 with no response Started on digoxin Fluid resuscitation On pressors Antibiotics CT of chest abdomen and pelvis Follow-up CBC ICU observation Patient DNI
[2017-03-23] MEDS ORDERED: Sodium Chloride 0.9% 500 ML IV ONE (16:33)
[2017-03-23] MEDS ORDERED: Vancomycin 1 GM in Sodium Chloride 0.9% 200 ML IVPB STA (16:33)
[2017-03-23] MEDS: Piperacill/Tazo 3.375gm in Dex 3.375 GM/50 ML BAG IVPB SCH ×2 (16:36→20:53)
[2017-03-23] MEDS: Multiple Vitamins Tab PO SCH (16:44)
--- NOTE | 2017-03-23 16:56 | PCM.PROC ---
Procedures Attestation:: I certify that I have explained the specified Operation(s) or Procedure(s), risks, benefits and reasonable alternatives to the Patient and/or other person responsible. The opportunity was given to ask questions and all questions answered - Central Line Placement Left Subclavian Aseptic technique was employed throughout the procedure: Hand Hygiene done prior to procedure, Full sterile barriers (mask, hair cover, sterile gown, sterile gloves), Full body sterile drape, Chloraprep Antiseptic: 30 second prep for IJ or SC sites CVP Time Out Performed: Yes Pt. Placed on Pulse Ox Monitor: Yes Central Line Prep: Chlorhexidine-Alcohol Combination Local Anesthesia Used: Lidocaine 1% Amount of Anesthesia Used (mls): 3 Ultrasound Used for Placement: No Central Line Lumen Inserted: triple Central Line Length: 16 cm Post Procedure: Sutured in Place, Good Blood Return, All Ports Aspirated, Flushed, Capped, Sterile Dressing Applied Secured by: Suture Post procedure dressing: Chlorhexidine disc (Biopatch) Post Procedure X-Ray: Yes Patient Tolerated Procedure: Well
--- NOTE | 2017-03-23 17:40 | CT ---
PROCEDURE: CT Angiography Chest ; Abdomen and Pelvis CT with contrast HISTORY: R/O PE COMPARISON: Chest CT without contrast 12/01/2016. No prior abdomen pelvis CT available for comparison. TECHNIQUE: Contiguous axial images were obtained through the chest with intravenous contrast enhancement. Sagittal and coronal reconstructions were performed. IV contrast: Visipaque 320, 100 cc. Radiation dose (DLP): mGy-cm. This CT exam was performed using one or more of the following dose reduction techniques: Automated exposure control, adjustment of the mA and/or kV according to patient size, and/or use of iterative reconstruction technique. FINDINGS: LUNGS: There is no CT evidence of pulmonary embolus or thoracic aortic aneurysm/ dissection. The main pulmonary artery is normal in caliber. No large pleural or pericardial effusion. Trace fluid or pleural thickening seen in the minor fissure laterally as well as at the right basilar pleural space. Cardiac size remains normal. Limited mediastinal lymphadenopathy is appreciate including a 1.3 x 0.8 cm right peritracheal lymph node. Subcarinal lymph node measures 2.0 x 1.3 cm. Numerous scattered partially calcified pleural plaques are again identified once again. A mild hiatal hernia is encountered once again. The thoracic inlet is remarkable for a left central venous line terminating in the superior vena cava. Pulmonary fibrotic changes have increased in the interval and remain peripheral predominantly. Limited alveolitis is seen at the right lower lobe with a 4 mm nodule seen in image 61 series 8 at the right lower lobe and a nearly identical 4 mm nodule seen cephalad to it in image 54. These may be inflammatory as they are not seen on the prior chest CT noted above. ABDOMEN AND PELVIS In the abdomen, there is no abdominal aortic aneurysm or dissection appreciated. No aortic rupture is appreciated. The bilateral common iliac arteries are mildly dilated distally up to 1.6 cm at the right and 1.5 cm at the left. Atherosclerosis is moderate throughout the abdominal aorta and iliofemoral system as imaged. There is relatively high-grade stenosis at the proximal SMA left since 1 cm from its origin with the celiac artery relatively small in size overall but patent widely. There is a high-grade right renal artery stenosis with none on the left. No lesion is identified in the liver or the spleen with an atrophic pancreas evident. Bilateral adrenal glands appear normal. No obstructive uropathy at either kidney. No definite renal mass or definitive radiodense calculus evident. No perinephric reaction or fluid collection. The gallbladder is distended but thin and smooth walled. The thoracic aorta is normal in caliber but atherosclerotic. The celiac and superior mesenteric arteries enhance adequately as well as the bilateral renal arteries. A retro aortic left renal vein is identified. The stomach is collapsed and is not well evaluated as evaluated as result. The bowel does not appear obstructed. Sigmoid diverticulosis is appreciate without gross pattern of diverticulitis. Injected fat is seen throughout the mesenteric as well as extra abdominal or extrathoracic subcutaneous fat suspicious for anasarca. Urinary bladder appears somewhat thick-walled with may be a function of cystitis and the prostatic urethra appears dilated, potentially a function of prior prostatectomy. Clinically correlate. Trace fluid is seen the inferior pelvis toward the right. BONES: Compression fracture of L1, L3, L4 and L5 are again identified and are unchanged in the interval as well as at T12 and T9. OTHER FINDINGS: None. IMPRESSION: 1. No evidence of pulmonary embolus, thoracic or abdominal aortic aneurysm or dissection. No evidence of aortic rupture throughout. Atherosclerotic changes seen throughout the ureteral without significant stenosis. 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 2. 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 3. Pulmonary fibrosis is appreciated diffusely as well as scattered largely calcified pleural plaques. Right lower lobe infiltrate is suspected. 4. Two sub cm pulmonary nodules are seen at the right lower lobe which may be reactive as they were not previously seen in prior chest CT 12/01/2016. Follow-up chest is recommended following therapy. 5. Questionable mild anasarca. 6. Cystitis not excluded. Other lesser findings as discussed above.
[2017-03-23] MEDS ORDERED: Metoprolol 1 mg/ml Inj IVP ONE (18:09)
--- NOTE | 2017-03-23 18:57 | PCM.URO ---
Urology Progress Note - Subjective Abdominal Pain: No Flank Pain: No Nausea: No Vomiting: No Voiding Well: Yes (incontinent) Hematuria: No Good Stream: No Stone Passed: No Chest Pain: No Fever & Chills: No - Objective Lab Results Last 24 Hours: Laboratory Results - last 24 hr 03/23/17 03/23/17 03/23/17 07:06 07:06 14:13 WBC 3.1 L RBC 2.96 L Hgb 8.5 L Hct 25.1 L MCV 84.9 MCH 28.7 MCHC 33.8 RDW 15.0 H Plt Count 149 MPV 8.2 Neut % (Auto) 47.5 L Lymph % (Auto) 36.6 [place] % (Auto) 9.8 Eos % (Auto) 5.1 H Baso % (Auto) 1.0 Neut # 1.5 L Lymph # 1.1 [place] # 0.3 Eos # 0.2 Baso # 0.0 PT INR APTT Puncture Site Rra pCO2 24 L pO2 122 H HCO3 17.6 L ABG pH 7.37 ABG Total CO2 14.6 L ABG O2 Saturation 99.7 H ABG Base Excess -9.5 L Michael Test Po ABG Potassium 3.3 L A-a O2 Difference 69.0 Respiratory Index 0.6 Glucose 63 L Lactate 1.3 Liter Flow 3.0 FiO2 31.0 Sodium 128 L 136.0 Potassium 3.3 L Chloride 102 110.0 H Carbon Dioxide 23 Anion Gap 6 L BUN 6 L Creatinine 0.5 L Est GFR ( Amer) > 60 Est GFR (Non-Af Amer) > 60 Random Glucose 72 L Calcium 6.8 L Phosphorus Magnesium Total Bilirubin AST ALT Alkaline Phosphatase Total Creatine Kinase CK-MB (Mass) Troponin I Total Protein Albumin Globulin Albumin/Globulin Ratio Arterial Blood Potassium 3.3 L Blood Type Antibody Screen 03/23/17 03/23/17 03/23/17 14:24 14:24 14:24 WBC 4.8 D RBC 3.33 L Hgb 9.6 L Hct 28.8 L MCV 86.5 MCH 28.9 MCHC 33.4 RDW 15.4 H Plt Count 173 MPV 8.6 Neut % (Auto) 56.7 Lymph % (Auto) 31.2 [place] % (Auto) 7.4 Eos % (Auto) 3.6 Baso % (Auto) 1.1 Neut # 2.7 Lymph # 1.5 [place] # 0.4 Eos # 0.2 Baso # 0.1 PT INR APTT Puncture Site pCO2 pO2 HCO3 ABG pH ABG Total CO2 ABG O2 Saturation ABG Base Excess Michael Test ABG Potassium A-a O2 Difference Respiratory Index Glucose Lactate Liter Flow FiO2 Sodium 131 L Potassium 3.3 L Chloride 108 H Carbon Dioxide 16 L Anion Gap 11 BUN 5 L Creatinine 0.4 L Est GFR ( Amer) > 60 Est GFR (Non-Af Amer) > 60 Random Glucose 56 L Calcium 6.0 L* Phosphorus 2.4 L Magnesium 1.3 L Total Bilirubin 0.4 AST 18 ALT 24 Alkaline Phosphatase 44 Total Creatine Kinase 29 L CK-MB (Mass) 1.53 Troponin I 0.0200 Total Protein 4.2 L Albumin 1.8 L Globulin 2.4 Albumin/Globulin Ratio 0.7 L Arterial Blood Potassium Blood Type O POSITIVE Antibody Screen Negative 03/23/17 14:24 WBC RBC Hgb Hct MCV MCH MCHC RDW Plt Count MPV Neut % (Auto) Lymph % (Auto) [place] % (Auto) Eos % (Auto) Baso % (Auto) Neut # Lymph # [place] # Eos # Baso # PT 19.5 H INR 1.7 APTT 49 H Puncture Site pCO2 pO2 HCO3 ABG pH ABG Total CO2 ABG O2 Saturation ABG Base Excess Michael Test ABG Potassium A-a O2 Difference Respiratory Index Glucose Lactate Liter Flow FiO2 Sodium Potassium Chloride Carbon Dioxide Anion Gap BUN Creatinine Est GFR ( Amer) Est GFR (Non-Af Amer) Random Glucose Calcium Phosphorus Magnesium Total Bilirubin AST ALT Alkaline Phosphatase Total Creatine Kinase CK-MB (Mass) Troponin I Total Protein Albumin Globulin Albumin/Globulin Ratio Arterial Blood Potassium Blood Type Antibody Screen Intake & Output: Intake & Output 03/22/17 03/23/17 03/23/17 18:59 06:59 18:59 Intake Total 630 Output Total 200 200 Balance 430 -200 Intake: Oral 630 Output: Urine 200 200 Condom 200 200 Other: # Bowel Movements 0 Vital Signs: Vital Signs - 24 hr 03/22/17 03/23/17 03/23/17 23:45 07:20 14:38 Temperature 97.9 F 97.1 F L Pulse Rate 81 76 134 H Respiratory 20 20 Rate Blood Pressure 99/46 L 93/64 L 97/67 L O2 Sat by Pulse 95 100 Oximetry - Physical Exam Abdominal Exam: Soft, Non-Tender, Non-Distended Wound: Clean (scrtoal wound is clean and dry), Healing Well Back: No CVA Tenderness Genitalia: Without Inflammation Urine Color: Clear, Yellow - Male Phallus: Normal Testes: Atrophy: Bilateral (absent , p orchiectomy) - Plan Wound Care: Yes Additional Information: Imp: urologically stable p orchiectomy. Prostate ca. Pt had LLE angioplasty today for vascular pathology. Thereafter he developed hypotension and tachycardia. Further medical and cardiologic rx t/f. - Date & Time of Note Date: 03/23/17 Time: 12:10
[2017-03-23] MEDS: Vitamins A & D Oint UD Foilpak TOP SCH (20:35)
[2017-03-23] MEDS: Enoxaparin 60 mg Syringe SC SCH (22:35)
--- NOTE | 2017-03-23 22:46 | CP.PCM.PN ---
Subjective - Date & Time of Evaluation Date of Evaluation: 03/23/17 Time of Evaluation: 17:45 - Subjective Subjective: Pt is in ICU due to resp distress , he got sick today, he had rapid ventricular response due to new onset rapid A.Fib, Objective - Vital Signs/Intake and Output Vital Signs (last 24 hours): Temp Pulse Resp BP Pulse Ox 97.6 F 111 H 32 H 95/56 L 93 L 03/23/17 20:00 03/23/17 22:00 03/23/17 22:00 03/23/17 21:57 03/23/17 22:00 Intake and Output: 03/23/17 03/24/17 18:59 06:59 Intake Total 2533 750 Output Total 650 200 Balance 1883 550 - Medications Medications: Current Medications Acetaminophen (Tylenol 325mg Tab) 650 mg PO Q6H PRN PRN Reason: Pain, moderate (4-7) Last Admin: 03/22/17 22:20 Dose: 650 mg Enoxaparin Sodium (Lovenox) 60 mg SC Q12 [facility] Last Admin: 03/23/17 22:35 Dose: 60 mg Sodium Chloride (Sodium Chloride 0.9%) 1,000 mls @ 100 mls/hr IV .Q10H [facility] Last Admin: 03/23/17 14:00 Dose: 100 mls/hr Phenylephrine HCl 30 mg/ (Dextrose) 253 mls @ 10.12 mls/hr IV .Q24H PRN; Protocol; 20 MCG/MIN PRN Reason: TITRATE PER MD ORDER Last Admin: 03/23/17 20:21 Dose: 98.81 mcg/min, 50 mls/hr Piperacillin Sod/Tazobactam Sod (Zosyn 3.375 Gm Iv Premix) 3.375 gm in 50 mls @ 100 mls/hr IVPB Q6H [facility] Last Admin: 03/23/17 20:53 Dose: 100 mls/hr Sodium Chloride (Sodium Chloride 0.9%) 1,000 mls @ 500 mls/hr IV .Q2H [facility] Last Admin: 03/23/17 16:45 Dose: 500 mls/hr Multivitamins (Hexavitamin) 1 tab PO DAILY [facility] Last Admin: 03/23/17 16:44 Dose: Not Given Rosuvastatin Calcium (Crestor) 10 mg PO HS [facility] Last Admin: 03/23/17 22:08 Dose: Not Given Tamsulosin HCl (Flomax) 0.4 mg PO DAILY [facility] Last Admin: 03/23/17 16:44 Dose: Not Given Vitamin A (Vitamin A & D Oint Ud Foilpak) 0.5 ea TOP Q4 [facility] Last Admin: 03/23/17 20:35 Dose: 0.5 ea - Labs Labs: 03/23/17 14:24 03/23/17 14:24 PT 19.5 SECONDS (9.7-12.2) H 03/23/17 14:24 INR 1.7 03/23/17 14:24 APTT 49 SECONDS (21-34) H 03/23/17 14:24 - Constitutional Appears: Chronically Ill - Head Exam Head Exam: ATRAUMATIC, NORMAL INSPECTION, NORMOCEPHALIC - Eye Exam Eye Exam: EOMI, Normal appearance, PERRL Pupil Exam: NORMAL ACCOMODATION, PERRL - Respiratory Exam Respiratory Exam: Decreased Breath Sounds, Rales - Cardiovascular Exam Cardiovascular Exam: Irregular Rhythm, +S1, +S2 - GI/Abdominal Exam GI & Abdominal Exam: Soft, Normal Bowel Sounds. absent: Tenderness Assessment and Plan (1) CA prostate, adenoca Status: Acute (2) Sepsis Status: Acute (3) UTI (urinary tract infection) Status: Acute (4) Acute urinary retention Status: Acute (5) CAD (coronary artery disease) Status: Acute (6) Hyponatremia Status: Acute (7) S/P TURP (status post transurethral resection of prostate) Status: Acute (8) Malnourished Status: Acute (9) S/P orchiectomy Status: Acute (10) PVD (peripheral vascular disease) Assessment & Plan: s/p angiogram Status: Acute
[2017-03-23 23:06] VITALS: PULSE 125
[2017-03-24] MEDS: Phenylephrine 30 MG in Dextrose 5% In Water 250 ML IV PRN ×5 (00:23→08:31)
[2017-03-24] MEDS: Vitamins A & D Oint UD Foilpak TOP SCH ×6 (00:24→20:00)
[2017-03-24] MEDS: Piperacill/Tazo 3.375gm in Dex 3.375 GM/50 ML BAG IVPB SCH ×4 (02:51→20:00)
--- NOTE | 2017-03-24 04:33 | VAS ---
DATE: PREOPERATIVE DIAGNOSIS: Ischemic ulceration, left foot. PROCEDURE CARRIED OUT: Aortofemoral angiogram via right groin with selective catheterization of the left femoral artery, with an angioplasty of left posterior tibial artery. INDICATIONS: The patient is an elderly man multiple other problems with a heel ulcer. Preoperative evaluation suggested he had severe tibial occlusive disease. OPERATIVE FINDINGS: The aorta and renal arteries are free of significant occlusive disease. Both common, external and internal iliac arteries as well as the common femoral, superficial femoral and profunda femoris arteries are widely patent. On the right side, there is evidence of tibial disease, but we did not push further imaging on this because of the patient's body habitus and told me to use a dye. In the left leg, the patient has severe tibial disease. The trifurcation was patent. The anterior tibial was occluded and did not reconstitute to the foot. The peroneal artery was diseased in its proximal portion and out in its mid portion; it did not reconstitute distally. The posterior tibial was the major vessel to the foot. Approximately, 3 inches above the ankle, there was a focal 90% stenosis in the posterior tibial artery, which is successfully dilated and this presented to the foot with a arch. Detailed pictures of the arch were unable to be obtained beyond the initial pictures.. Subsequent to the performance of the diagnostic arteriogram, a stiff-angled guidewire was advanced over the aortic bifurcation and a 6-[place] sheath positioned in the distal portion of the popliteal artery. Using the roadmapping techniques, the lesion was crossed. After the lesion was crossed, it was dilated with a 2 mm balloon with successful cosmetic results. Procedure was then terminated and pressure was applied to the groin. Blood loss of the procedure was 20 mL. OPERATION CARRIED OUT: Aortofemoral angiogram with selective catheterization of the left femoral artery, balloon angioplasty of posterior tibial artery. The patient tolerated the procedure uneventfully. Arash Tate Jr., MD cc: Dr. Rollins.
[2017-03-24 06:45] LABS: BASO # 0.1 K/uL (0.0-0.2); BASO % 0.9 % (0.0-2.0); EOS % 0.2 % (0.0-4.0); HEMOGLOBIN 9.9 g/dL (12.0-18.0); LYMPH % 14.5 % (20.0-40.0); MEAN CELL VOLUME 85.6 fL (80.0-94.0); MEAN CORPUSCULAR HEMOGLOBIN 29.1 pg (27.0-31.0); MEAN PLATELET VOLUME 8.3 fL (7.2-11.7); MONO # 0.6 K/uL (0.0-0.8); MONO % 8.3 % (0.0-10.0); NEUT # 5.2 K/uL (1.8-7.0); NEUT % 76.1 % (50.0-75.0); NRBC % 0.1 % (0.0-2.0); RBC 3.41 Mil/uL (4.40-5.90); RED CELL DISTRIBUTION WIDTH 15.1 % (11.5-14.5); WHITE BLOOD COUNT 6.8 K/uL (4.8-10.8)
[2017-03-24 07:03] LABS: ALB/GLOB RATIO 0.8 (1.0-2.1); ALBUMIN 2.1 g/dL (3.5-5.0); ALT/SGPT 22 U/L (21-72); AST/SGOT 32 U/L (17-59); BLOOD UREA NITROGEN 5 mg/dL (9-20); CALCIUM 6.9 mg/dl (8.6-10.4); GFR AFRICAN-AMERICAN > 60; GFR NON-AFRICAN AMERICAN > 60
--- NOTE | 2017-03-24 08:47 | CP.CCUPN ---
<Jose Nugent - Last Filed: 03/24/17 12:57> CCU Subjective - Physician Review Subjective (Free Text): 03/24/17 08:46 Patient seen and examined at bedside Doing well with no complaints at this time NSR, less tachy today CTA was unremarkable 03/24/17 10:51 Will replace mg and K levels repeat labs at 2pm titrate down pressors to mean 65 add ASA 81 QD 03/24/17 12:57 failed swallow eval NGT inserted CCU Objective - Vital Signs / Intake & Output Vital Signs (Last 4 hours): Vital Signs Temp Pulse Resp BP Pulse Ox 03/24/17 08:31 86 21 118/52 L 98 03/24/17 08:30 87 29 H 98 03/24/17 08:01 84 29 H 135/66 100 03/24/17 08:00 97.2 F L 85 28 H 100 03/24/17 07:55 85 21 138/64 99 03/24/17 07:31 88 18 138/80 100 03/24/17 07:30 86 26 H 100 03/24/17 07:01 78 27 H 133/60 99 03/24/17 07:00 79 13 99 03/24/17 06:33 87 123/54 L 99 03/24/17 06:30 85 19 99 03/24/17 06:12 123/54 L 03/24/17 06:00 80 22 99 03/24/17 05:42 127/50 L 03/24/17 05:30 84 12 97 03/24/17 05:14 88 35 H 131/63 97 03/24/17 05:00 88 33 H 97 Intake and Output (Last 8hrs): Intake & Output 03/23/17 03/24/17 03/24/17 22:59 06:59 14:59 Intake Total 1590 1657 253 Output Total 650 200 Balance 940 1457 253 Intake: IV 250 1012 253 Intake, IV Amount 1340 645 Left Distal Port 50 50 Left Medial Port 900 Left Proximal Port 390 595 Output: Urine 650 200 Condom 650 200 Other: # Bowel Movements 0 - Physical Exam Physical Exam Limitations: Positive for: Other (confused) Head: Positive for: Atraumatic, Normocephalic Pupils: Positive for: PERRL Extroacular Muscles: Positive for: EOMI Conjunctiva: Positive for: Normal Mouth: Positive for: Moist Mucous Membranes Neck: Positive for: Normal Range of Motion Respiratory/Chest: Positive for: Clear to Auscultation, Accessory Muscle Use Cardiovascular: Positive for: Regular Rate and Rhythm Neurological: Positive for: CN II-XII Intact Skin: Positive for: Warm, Dry Psychiatric: Positive for: Alert, Oriented x 3 - Medications Active Medications: Active Medications Generic Name Dose Route Start Last Admin Trade Name Freq PRN Reason Stop Dose Admin Acetaminophen 650 mg 03/03/17 10:00 03/22/17 22:20 Tylenol 325mg Tab PO 650 mg Q6H PRN Administration Pain, moderate (4-7) Enoxaparin Sodium 60 mg 03/23/17 22:00 03/23/17 22:35 Lovenox SC 60 mg Q12 JULIO Administration Phenylephrine HCl 30 mg/ 253 mls @ 10.12 mls/hr 03/23/17 14:15 03/24/17 08:31 Dextrose IV 100 mcg/min .Q24H PRN 50.6 mls/hr TITRATE PER MD ORDER Administration Protocol 20 MCG/MIN Piperacillin Sod/Tazobactam Sod 3.375 gm in 50 mls @ 100 mls/hr 03/23/17 14: 30 03/24/17 07:41 Zosyn 3.375 Gm Iv Premix IVPB 100 mls/hr Q6H JULIO Administration Multivitamins 1 tab 03/20/17 11:00 03/23/17 16:44 Hexavitamin PO Not Given DAILY JULIO Rosuvastatin Calcium 10 mg 03/02/17 22:15 03/23/17 22:08 Crestor PO Not Given HS JULIO Tamsulosin HCl 0.4 mg 03/03/17 10:00 03/23/17 16:44 Flomax PO Not Given DAILY JULIO Vitamin A 0.5 ea 03/23/17 20:00 03/24/17 07:42 Vitamin A & D Oint Ud Foilpak TOP 0.5 ea Q4 JULIO Administration - Patient Studies Lab Studies: Lab Studies 03/24/17 03/24/17 03/23/17 Range/Units 06:36 06:36 22:40 WBC 6.8 (4.8-10.8) K/uL RBC 3.41 L (4.40-5.90) Mil/uL Hgb 9.9 L (12.0-18.0) g/dL Hct 29.2 L (35.0-51.0) % MCV 85.6 (80.0-94.0) fL MCH 29.1 (27.0-31.0) pg MCHC 34.0 (33.0-37.0) g/dL RDW 15.1 H (11.5-14.5) % Plt Count 213 (130-400) K/uL MPV 8.3 (7.2-11.7) fL Neut % (Auto) 76.1 H (50.0-75.0) % Lymph % (Auto) 14.5 L (20.0-40.0) % [place] % (Auto) 8.3 (0.0-10.0) % Eos % (Auto) 0.2 (0.0-4.0) % Baso % (Auto) 0.9 (0.0-2.0) % Neut # 5.2 (1.8-7.0) K/uL Lymph # 1.0 (1.0-4.3) K/uL [place] # 0.6 (0.0-0.8) K/uL Eos # 0.0 (0.0-0.7) K/uL Baso # 0.1 (0.0-0.2) K/uL PT (9.7-12.2) SECONDS INR APTT (21-34) SECONDS Puncture Site pCO2 (35-45) mm/Hg pO2 (80-100) mm/Hg HCO3 (21-28) mmol/L ABG pH (7.35-7.45) ABG Total CO2 (22-28) mmol/L ABG O2 Saturation (95-98) % ABG Base Excess (-2.0-3.0) mmol/L Michael Test ABG Potassium (3.6-5.2) mmol/L A-a O2 Difference mm/Hg Respiratory Index Sodium 129 L (132-148) mmol/l Chloride 104 (98-107) mmol/L Glucose (75-110) mg/dl Lactate (0.7-2.1) mmol/L Liter Flow FiO2 % Potassium 3.7 (3.6-5.2) mmol/L Carbon Dioxide 19 L (22-30) mmol/L Anion Gap 10 (10-20) BUN 5 L (9-20) mg/dL Creatinine 0.5 L (0.8-1.5) mg/dL Est GFR ( Amer) > 60 Est GFR (Non-Af Amer) > 60 Random Glucose 95 (75-110) mg/dL Calcium 6.9 L (8.6-10.4) mg/dl Phosphorus (2.5-4.5) mg/dL Magnesium (1.6-2.3) mg/dL Total Bilirubin 0.5 (0.2-1.3) mg/dL AST 32 (17-59) U/L ALT 22 (21-72) U/L Alkaline Phosphatase 67 (38-126) U/L Total Creatine Kinase (55-170) U/L CK-MB (Mass) (0.0-3.38) ng/mL Troponin I 0.0530 (0.00-0.120) ng/mL Total Protein 4.9 L (6.3-8.3) g/dL Albumin 2.1 L (3.5-5.0) g/dL Globulin 2.8 (2.2-3.9) gm/dL Albumin/Globulin Ratio 0.8 L (1.0-2.1) Arterial Blood Potassium (3.6-5.2) mmol/L Blood Type Antibody Screen 03/23/17 03/23/17 03/23/17 Range/Units 14:24 14:24 14:24 WBC (4.8-10.8) K/uL RBC (4.40-5.90) Mil/uL Hgb (12.0-18.0) g/dL Hct (35.0-51.0) % MCV (80.0-94.0) fL MCH (27.0-31.0) pg MCHC (33.0-37.0) g/dL RDW (11.5-14.5) % Plt Count (130-400) K/uL MPV (7.2-11.7) fL Neut % (Auto) (50.0-75.0) % Lymph % (Auto) (20.0-40.0) % [place] % (Auto) (0.0-10.0) % Eos % (Auto) (0.0-4.0) % Baso % (Auto) (0.0-2.0) % Neut # (1.8-7.0) K/uL Lymph # (1.0-4.3) K/uL [place] # (0.0-0.8) K/uL Eos # (0.0-0.7) K/uL Baso # (0.0-0.2) K/uL PT 19.5 H (9.7-12.2) SECONDS INR 1.7 APTT 49 H (21-34) SECONDS Puncture Site pCO2 (35-45) mm/Hg pO2 (80-100) mm/Hg HCO3 (21-28) mmol/L ABG pH (7.35-7.45) ABG Total CO2 (22-28) mmol/L ABG O2 Saturation (95-98) % ABG Base Excess (-2.0-3.0) mmol/L Michael Test ABG Potassium (3.6-5.2) mmol/L A-a O2 Difference mm/Hg Respiratory Index Sodium 131 L (132-148) mmol/l Chloride 108 H (98-107) mmol/L Glucose (75-110) mg/dl Lactate (0.7-2.1) mmol/L Liter Flow FiO2 % Potassium 3.3 L (3.6-5.2) mmol/L Carbon Dioxide 16 L (22-30) mmol/L Anion Gap 11 (10-20) BUN 5 L (9-20) mg/dL Creatinine 0.4 L (0.8-1.5) mg/dL Est GFR ( Amer) > 60 Est GFR (Non-Af Amer) > 60 Random Glucose 56 L (75-110) mg/dL Calcium 6.0 L* (8.6-10.4) mg/dl Phosphorus 2.4 L (2.5-4.5) mg/dL Magnesium 1.3 L (1.6-2.3) mg/dL Total Bilirubin 0.4 (0.2-1.3) mg/dL AST 18 (17-59) U/L ALT 24 (21-72) U/L Alkaline Phosphatase 44 (38-126) U/L Total Creatine Kinase 29 L (55-170) U/L CK-MB (Mass) 1.53 (0.0-3.38) ng/mL Troponin I 0.0200 (0.00-0.120) ng/mL Total Protein 4.2 L (6.3-8.3) g/dL Albumin 1.8 L (3.5-5.0) g/dL Globulin 2.4 (2.2-3.9) gm/dL Albumin/Globulin Ratio 0.7 L (1.0-2.1) Arterial Blood Potassium (3.6-5.2) mmol/L Blood Type O POSITIVE Antibody Screen Negative 03/23/17 03/23/17 Range/Units 14:24 14:13 WBC 4.8 D (4.8-10.8) K/uL RBC 3.33 L (4.40-5.90) Mil/uL Hgb 9.6 L (12.0-18.0) g/dL Hct 28.8 L (35.0-51.0) % MCV 86.5 (80.0-94.0) fL MCH 28.9 (27.0-31.0) pg MCHC 33.4 (33.0-37.0) g/dL RDW 15.4 H (11.5-14.5) % Plt Count 173 (130-400) K/uL MPV 8.6 (7.2-11.7) fL Neut % (Auto) 56.7 (50.0-75.0) % Lymph % (Auto) 31.2 (20.0-40.0) % [place] % (Auto) 7.4 (0.0-10.0) % Eos % (Auto) 3.6 (0.0-4.0) % Baso % (Auto) 1.1 (0.0-2.0) % Neut # 2.7 (1.8-7.0) K/uL Lymph # 1.5 (1.0-4.3) K/uL [place] # 0.4 (0.0-0.8) K/uL Eos # 0.2 (0.0-0.7) K/uL Baso # 0.1 (0.0-0.2) K/uL PT (9.7-12.2) SECONDS INR APTT (21-34) SECONDS Puncture Site Rra pCO2 24 L (35-45) mm/Hg pO2 122 H (80-100) mm/Hg HCO3 17.6 L (21-28) mmol/L ABG pH 7.37 (7.35-7.45) ABG Total CO2 14.6 L (22-28) mmol/L ABG O2 Saturation 99.7 H (95-98) % ABG Base Excess -9.5 L (-2.0-3.0) mmol/L Michael Test Po ABG Potassium 3.3 L (3.6-5.2) mmol/L A-a O2 Difference 69.0 mm/Hg Respiratory Index 0.6 Sodium 136.0 (132-148) mmol/l Chloride 110.0 H (98-107) mmol/L Glucose 63 L (75-110) mg/dl Lactate 1.3 (0.7-2.1) mmol/L Liter Flow 3.0 FiO2 31.0 % Potassium (3.6-5.2) mmol/L Carbon Dioxide (22-30) mmol/L Anion Gap (10-20) BUN (9-20) mg/dL Creatinine (0.8-1.5) mg/dL Est GFR ( Amer) Est GFR (Non-Af Amer) Random Glucose (75-110) mg/dL Calcium (8.6-10.4) mg/dl Phosphorus (2.5-4.5) mg/dL Magnesium (1.6-2.3) mg/dL Total Bilirubin (0.2-1.3) mg/dL AST (17-59) U/L ALT (21-72) U/L Alkaline Phosphatase (38-126) U/L Total Creatine Kinase (55-170) U/L CK-MB (Mass) (0.0-3.38) ng/mL Troponin I (0.00-0.120) ng/mL Total Protein (6.3-8.3) g/dL Albumin (3.5-5.0) g/dL Globulin (2.2-3.9) gm/dL Albumin/Globulin Ratio (1.0-2.1) Arterial Blood Potassium 3.3 L (3.6-5.2) mmol/L Blood Type Antibody Screen Laboratory Results - last 24 hr 03/23/17 03/23/17 03/23/17 14:13 14:24 14:24 WBC 4.8 D RBC 3.33 L Hgb 9.6 L Hct 28.8 L MCV 86.5 MCH 28.9 MCHC 33.4 RDW 15.4 H Plt Count 173 MPV 8.6 Neut % (Auto) 56.7 Lymph % (Auto) 31.2 [place] % (Auto) 7.4 Eos % (Auto) 3.6 Baso % (Auto) 1.1 Neut # 2.7 Lymph # 1.5 [place] # 0.4 Eos # 0.2 Baso # 0.1 PT INR APTT Puncture Site Rra pCO2 24 L pO2 122 H HCO3 17.6 L ABG pH 7.37 ABG Total CO2 14.6 L ABG O2 Saturation 99.7 H ABG Base Excess -9.5 L Michael Test Po ABG Potassium 3.3 L A-a O2 Difference 69.0 Respiratory Index 0.6 Sodium 136.0 131 L Chloride 110.0 H 108 H Glucose 63 L Lactate 1.3 Liter Flow 3.0 FiO2 31.0 Potassium 3.3 L Carbon Dioxide 16 L Anion Gap 11 BUN 5 L Creatinine 0.4 L Est GFR ( Amer) > 60 Est GFR (Non-Af Amer) > 60 Random Glucose 56 L Calcium 6.0 L* Phosphorus 2.4 L Magnesium 1.3 L Total Bilirubin 0.4 AST 18 ALT 24 Alkaline Phosphatase 44 Total Creatine Kinase 29 L CK-MB (Mass) 1.53 Troponin I 0.0200 Total Protein 4.2 L Albumin 1.8 L Globulin 2.4 Albumin/Globulin Ratio 0.7 L Arterial Blood Potassium 3.3 L Blood Type Antibody Screen 03/23/17 03/23/17 03/23/17 14:24 14:24 22:40 WBC RBC Hgb Hct MCV MCH MCHC RDW Plt Count MPV Neut % (Auto) Lymph % (Auto) [place] % (Auto) Eos % (Auto) Baso % (Auto) Neut # Lymph # [place] # Eos # Baso # PT 19.5 H INR 1.7 APTT 49 H Puncture Site pCO2 pO2 HCO3 ABG pH ABG Total CO2 ABG O2 Saturation ABG Base Excess Michael Test ABG Potassium A-a O2 Difference Respiratory Index Sodium Chloride Glucose Lactate Liter Flow FiO2 Potassium Carbon Dioxide Anion Gap BUN Creatinine Est GFR ( Amer) Est GFR (Non-Af Amer) Random Glucose Calcium Phosphorus Magnesium Total Bilirubin AST ALT Alkaline Phosphatase Total Creatine Kinase CK-MB (Mass) Troponin I 0.0530 Total Protein Albumin Globulin Albumin/Globulin Ratio Arterial Blood Potassium Blood Type O POSITIVE Antibody Screen Negative 03/24/17 03/24/17 06:36 06:36 WBC 6.8 RBC 3.41 L Hgb 9.9 L Hct 29.2 L MCV 85.6 MCH 29.1 MCHC 34.0 RDW 15.1 H Plt Count 213 MPV 8.3 Neut % (Auto) 76.1 H Lymph % (Auto) 14.5 L [place] % (Auto) 8.3 Eos % (Auto) 0.2 Baso % (Auto) 0.9 Neut # 5.2 Lymph # 1.0 [place] # 0.6 Eos # 0.0 Baso # 0.1 PT INR APTT Puncture Site pCO2 pO2 HCO3 ABG pH ABG Total CO2 ABG O2 Saturation ABG Base Excess Michael Test ABG Potassium A-a O2 Difference Respiratory Index Sodium 129 L Chloride 104 Glucose Lactate Liter Flow FiO2 Potassium 3.7 Carbon Dioxide 19 L Anion Gap 10 BUN 5 L Creatinine 0.5 L Est GFR ( Amer) > 60 Est GFR (Non-Af Amer) > 60 Random Glucose 95 Calcium 6.9 L Phosphorus Magnesium Total Bilirubin 0.5 AST 32 ALT 22 Alkaline Phosphatase 67 Total Creatine Kinase CK-MB (Mass) Troponin I Total Protein 4.9 L Albumin 2.1 L Globulin 2.8 Albumin/Globulin Ratio 0.8 L Arterial Blood Potassium Blood Type Antibody Screen EKG/Cardiology Studies: Cardiology / EKG Studies 03/23/17 12:15 EKG [ELECTROCARDIOGRAM] Stat Comment: Mode Of Transportation: BED Reason For Exam: EKG changes Isolation: Contact 03/23/17 21:52 ELECTROCARDIOGRAM Stat Comment: Mode Of Transportation: Reason For Exam: hypotension Isolation: Contact Critical Care Progress Note - Nutrition Nutrition: Nutrition Category Date Time Status Regular Diet [DIET] Diets 03/23/17 Lunch Active Assessment/Plan - Assessment and Plan (Free Text) Assessment: 81M h/o prostate cancer, PVD, HTN HLD, carotid stenosis, COPD presents w/ atrial fibrillation and 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 Subclavian central venous line placed. Digoxin 0.25 IV ONCE. Phenylephrine 30 Drip Crestor 10 PO HS ASA 81 QD Electrolytes Replace Mg and K F/U Labs at 1400 : Urology([facility]). Flomax 0.4 PO Daily GI: Dietary consulted. Ensure ordered. CT A/P - R/O retroperitoneal hem Renal: Nephrology([facility]). Potassium Chloride 20meq MSK: Podiatry([facility]). Sacral decub Wound care consulted. ID: ID ([id number]). Blood cultures negative. Zosyn 2.25 IV Q8. Prophylaxis: DVT: SCDs GI: Protonix 40 mg IVP Daily <Gavino Gamino M - Last Filed: 03/24/17 18:51> CCU Objective - Vital Signs / Intake & Output Vital Signs (Last 4 hours): Vital Signs Temp Pulse Resp BP Pulse Ox 03/24/17 16:00 98.2 F 96 H 20 114/57 L 97 03/24/17 15:30 98 H 18 108/52 L 98 03/24/17 15:00 88 16 119/56 L 98 Intake and Output (Last 8hrs): Intake & Output 03/24/17 03/24/17 03/24/17 06:59 14:59 22:59 Intake Total 1657 1194.7 140 Output Total 200 250 80 Balance 1457 944.7 60 Intake: IV 1012 476 30 Intake, IV Amount 645 718.7 20 Left Distal Port 50 200 Left Medial Port 150 Left Proximal Port 595 368.7 20 Right Upper arm 0 0 Oral 0 50 Tube Feeding 40 Output: Urine 200 250 80 Condom 200 250 80 Other: # Voids Condom 0 0 # Bowel Movements 0 0 0 - Medications Active Medications: Active Medications Generic Name Dose Route Start Last Admin Trade Name Freq PRN Reason Stop Dose Admin Acetaminophen 650 mg 03/03/17 10:00 03/22/17 22:20 Tylenol 325mg Tab PO 650 mg Q6H PRN Administration Pain, moderate (4-7) Aspirin 81 mg 03/24/17 10:00 03/24/17 13:21 Aspirin Chewable PO 81 mg DAILY JULIO Administration Enoxaparin Sodium 60 mg 03/23/17 22:00 03/24/17 09:57 Lovenox SC 60 mg Q12 JULIO Administration Phenylephrine HCl 30 mg/ 253 mls @ 10.12 mls/hr 03/23/17 14:15 03/24/17 16:00 Dextrose IV Infused .Q24H PRN Titration TITRATE PER MD ORDER Protocol 20 MCG/MIN Piperacillin Sod/Tazobactam Sod 3.375 gm in 50 mls @ 100 mls/hr 03/23/17 14: 30 03/24/17 15:19 Zosyn 3.375 Gm Iv Premix IVPB 100 mls/hr Q6H JULIO Administration Potassium Phosphate 15 mmole/ 255 mls @ 63 mls/hr 03/24/17 15:45 03/24/17 16: 18 Dextrose IV 03/24/17 19:47 63 mls/hr ONCE ONE Administration Multivitamins 1 tab 03/20/17 11:00 03/24/17 13:21 Hexavitamin PO 1 tab DAILY JULIO Administration Rosuvastatin Calcium 10 mg 03/02/17 22:15 03/23/17 22:08 Crestor PO Not Given HS JULIO Tamsulosin HCl 0.4 mg 03/03/17 10:00 03/24/17 13:21 Flomax PO 0.4 mg DAILY JULIO Administration Vitamin A 0.5 ea 03/23/17 20:00 03/24/17 15:19 Vitamin A & D Oint Ud Foilpak TOP 0.5 ea Q4 JULIO Administration - Patient Studies Lab Studies: Lab Studies 03/24/17 03/24/17 03/24/17 Range/Units 14:29 06:36 06:36 WBC 6.8 (4.8-10.8) K/uL RBC 3.41 L (4.40-5.90) Mil/uL Hgb 9.9 L (12.0-18.0) g/dL Hct 29.2 L (35.0-51.0) % MCV 85.6 (80.0-94.0) fL MCH 29.1 (27.0-31.0) pg MCHC 34.0 (33.0-37.0) g/dL RDW 15.1 H (11.5-14.5) % Plt Count 213 (130-400) K/uL MPV 8.3 (7.2-11.7) fL Neut % (Auto) 76.1 H (50.0-75.0) % Lymph % (Auto) 14.5 L (20.0-40.0) % [place] % (Auto) 8.3 (0.0-10.0) % Eos % (Auto) 0.2 (0.0-4.0) % Baso % (Auto) 0.9 (0.0-2.0) % Neut # 5.2 (1.8-7.0) K/uL Lymph # 1.0 (1.0-4.3) K/uL [place] # 0.6 (0.0-0.8) K/uL Eos # 0.0 (0.0-0.7) K/uL Baso # 0.1 (0.0-0.2) K/uL Sodium 127 L 129 L (132-148) mmol/L Potassium 3.6 3.7 (3.6-5.2) mmol/L Chloride 103 104 (98-107) mmol/L Carbon Dioxide 19 L 19 L (22-30) mmol/L Anion Gap 9 L 10 (10-20) BUN 4 L 5 L (9-20) mg/dL Creatinine 0.5 L 0.5 L (0.8-1.5) mg/dL Est GFR ( Amer) > 60 > 60 Est GFR (Non-Af Amer) > 60 > 60 Random Glucose 112 H 95 (75-110) mg/dL Calcium 6.9 L 6.9 L (8.6-10.4) mg/dl Phosphorus 1.8 L 2.6 (2.5-4.5) mg/dL Magnesium 1.8 1.4 L (1.6-2.3) mg/dL Total Bilirubin 0.5 0.5 (0.2-1.3) mg/dL AST 33 32 (17-59) U/L ALT 22 22 (21-72) U/L Alkaline Phosphatase 53 67 (38-126) U/L Troponin I (0.00-0.120) ng/mL Total Protein 4.8 L 4.9 L (6.3-8.3) g/dL Albumin 2.1 L 2.1 L (3.5-5.0) g/dL Globulin 2.7 2.8 (2.2-3.9) gm/dL Albumin/Globulin Ratio 0.8 L 0.8 L (1.0-2.1) 03/23/17 Range/Units 22:40 WBC (4.8-10.8) K/uL RBC (4.40-5.90) Mil/uL Hgb (12.0-18.0) g/dL Hct (35.0-51.0) % MCV (80.0-94.0) fL MCH (27.0-31.0) pg MCHC (33.0-37.0) g/dL RDW (11.5-14.5) % Plt Count (130-400) K/uL MPV (7.2-11.7) fL Neut % (Auto) (50.0-75.0) % Lymph % (Auto) (20.0-40.0) % [place] % (Auto) (0.0-10.0) % Eos % (Auto) (0.0-4.0) % Baso % (Auto) (0.0-2.0) % Neut # (1.8-7.0) K/uL Lymph # (1.0-4.3) K/uL [place] # (0.0-0.8) K/uL Eos # (0.0-0.7) K/uL Baso # (0.0-0.2) K/uL Sodium (132-148) mmol/L Potassium (3.6-5.2) mmol/L Chloride (98-107) mmol/L Carbon Dioxide (22-30) mmol/L Anion Gap (10-20) BUN (9-20) mg/dL Creatinine (0.8-1.5) mg/dL Est GFR ( Amer) Est GFR (Non-Af Amer) Random Glucose (75-110) mg/dL Calcium (8.6-10.4) mg/dl Phosphorus (2.5-4.5) mg/dL Magnesium (1.6-2.3) mg/dL Total Bilirubin (0.2-1.3) mg/dL AST (17-59) U/L ALT (21-72) U/L Alkaline Phosphatase (38-126) U/L Troponin I 0.0530 (0.00-0.120) ng/mL Total Protein (6.3-8.3) g/dL Albumin (3.5-5.0) g/dL Globulin (2.2-3.9) gm/dL Albumin/Globulin Ratio (1.0-2.1) Laboratory Results - last 24 hr 03/23/17 03/24/17 03/24/17 22:40 06:36 06:36 WBC 6.8 RBC 3.41 L Hgb 9.9 L Hct 29.2 L MCV 85.6 MCH 29.1 MCHC 34.0 RDW 15.1 H Plt Count 213 MPV 8.3 Neut % (Auto) 76.1 H Lymph % (Auto) 14.5 L [place] % (Auto) 8.3 Eos % (Auto) 0.2 Baso % (Auto) 0.9 Neut # 5.2 Lymph # 1.0 [place] # 0.6 Eos # 0.0 Baso # 0.1 Sodium 129 L Potassium 3.7 Chloride 104 Carbon Dioxide 19 L Anion Gap 10 BUN 5 L Creatinine 0.5 L Est GFR ( Amer) > 60 Est GFR (Non-Af Amer) > 60 Random Glucose 95 Calcium 6.9 L Phosphorus 2.6 Magnesium 1.4 L Total Bilirubin 0.5 AST 32 ALT 22 Alkaline Phosphatase 67 Troponin I 0.0530 Total Protein 4.9 L Albumin 2.1 L Globulin 2.8 Albumin/Globulin Ratio 0.8 L 03/24/17 14:29 WBC RBC Hgb Hct MCV MCH MCHC RDW Plt Count MPV Neut % (Auto) Lymph % (Auto) [place] % (Auto) Eos % (Auto) Baso % (Auto) Neut # Lymph # [place] # Eos # Baso # Sodium 127 L Potassium 3.6 Chloride 103 Carbon Dioxide 19 L Anion Gap 9 L BUN 4 L Creatinine 0.5 L Est GFR ( Amer) > 60 Est GFR (Non-Af Amer) > 60 Random Glucose 112 H Calcium 6.9 L Phosphorus 1.8 L Magnesium 1.8 Total Bilirubin 0.5 AST 33 ALT 22 Alkaline Phosphatase 53 Troponin I Total Protein 4.8 L Albumin 2.1 L Globulin 2.7 Albumin/Globulin Ratio 0.8 L EKG/Cardiology Studies: Cardiology / EKG Studies 03/23/17 21:52 ELECTROCARDIOGRAM Stat Comment: Mode Of Transportation: Reason For Exam: hypotension Isolation: Contact 03/24/17 09:34 EKG [ELECTROCARDIOGRAM] Stat Comment: Mode Of Transportation: PORTABLE Reason For Exam: afib Isolation: Contact Critical Care Progress Note - Nutrition Nutrition: Nutrition Category Date Time Status Regular Diet [DIET] Diets 03/23/17 Lunch Active Attending/Attestation - Attestation I have personally seen and examined this patient.: Yes I have fully participated in the care of the patient.: Yes I have reviewed all pertinent clinical information: Yes Notes (Text): 03/24/17 18:51 Today: March The Patient was seen and examined at the bedside, Medical records reviewed, and management issues were discussed and formulated with the house staff. I have reviewed all the relevant clinical, laboratory, hemodynamic, radiographic data and medications Events reviewed Pain issues, skin care, head of the bed elevation, glycemic control were addressed. Agree with above resident's assessment and treatment plans of care as transcribed in Dr. Nugent note.
--- NOTE | 2017-03-24 09:15 | RAD ---
Chest x-ray single frontal view History: Tachypnea. Comparison: 03/23/2017 Findings: Again identified are multiple calcified pleural plaques. Previously identified left central venous catheter has retracted now extending into the right brachial vein. Repositioning is recommended. Diffuse increased interstitial lung markings. Few scattered nodular densities. Biapical pleural thickening with lobe granulomatous changes. Heart size within normal limits. Degenerative changes in the spine and shoulders. Impression: Previously identified left central venous catheter has retracted now extending into the right brachial vein. Repositioning is recommended.
[2017-03-24 09:25] LABS: MAGNESIUM 1.4 mg/dL (1.6-2.3)
[2017-03-24] MEDS ORDERED: Magnesium Sulfate 1 gm in D5W 1 GM/100 ML BAG IVPB SCH (09:30)
--- NOTE | 2017-03-24 09:35 | CP.PCM.PN ---
Subjective - Date & Time of Evaluation Date of Evaluation: 03/24/17 Time of Evaluation: 09:32 - Subjective Subjective: Transferred to ICU post episode AFib with RVR post left foot angiopolasty Awake now- mental status same Na-129- acceptable Now in NAD Objective - Vital Signs/Intake and Output Vital Signs (last 24 hours): Temp Pulse Resp BP Pulse Ox 97.2 F L 86 21 118/52 L 98 03/24/17 08:00 03/24/17 08:31 03/24/17 08:31 03/24/17 08:31 03/24/17 08:31 Intake and Output: 03/24/17 03/24/17 06:59 18:59 Intake Total 2407 418 Output Total 400 150 Balance 2006 268 - Medications Medications: Current Medications Acetaminophen (Tylenol 325mg Tab) 650 mg PO Q6H PRN PRN Reason: Pain, moderate (4-7) Last Admin: 03/22/17 22:20 Dose: 650 mg Enoxaparin Sodium (Lovenox) 60 mg SC Q12 COUNTS INCLUDE 234 BEDS AT THE [facility] Last Admin: 03/23/17 22:35 Dose: 60 mg Phenylephrine HCl 30 mg/ (Dextrose) 253 mls @ 10.12 mls/hr IV .Q24H PRN; Protocol; 20 MCG/MIN PRN Reason: TITRATE PER MD ORDER Last Admin: 03/24/17 08:31 Dose: 100 mcg/min, 50.6 mls/hr Piperacillin Sod/Tazobactam Sod (Zosyn 3.375 Gm Iv Premix) 3.375 gm in 50 mls @ 100 mls/hr IVPB Q6H COUNTS INCLUDE 234 BEDS AT THE [facility] Last Admin: 03/24/17 07:41 Dose: 100 mls/hr Magnesium Sulfate/Dextrose (Magnesium Sulfate 1 Gm/100 Ml D5w) 1 gm in 100 mls @ 300 mls/hr IVPB Q30M COUNTS INCLUDE 234 BEDS AT THE [facility] Stop: 03/24/17 10:19 Magnesium Sulfate/Dextrose (Magnesium Sulfate 1 Gm/100 Ml D5w) 1 gm in 100 mls @ 300 mls/hr IVPB Q30M COUNTS INCLUDE 234 BEDS AT THE [facility] Stop: 03/24/17 10:19 Multivitamins (Hexavitamin) 1 tab PO DAILY COUNTS INCLUDE 234 BEDS AT THE [facility] Last Admin: 03/23/17 16:44 Dose: Not Given Rosuvastatin Calcium (Crestor) 10 mg PO HS COUNTS INCLUDE 234 BEDS AT THE [facility] Last Admin: 03/23/17 22:08 Dose: Not Given Tamsulosin HCl (Flomax) 0.4 mg PO DAILY COUNTS INCLUDE 234 BEDS AT THE [facility] Last Admin: 03/23/17 16:44 Dose: Not Given Vitamin A (Vitamin A & D Oint Ud Foilpak) 0.5 ea TOP Q4 COUNTS INCLUDE 234 BEDS AT THE [facility] Last Admin: 03/24/17 07:42 Dose: 0.5 ea - Labs Labs: 03/24/17 06:36 03/24/17 06:36 PT 19.5 SECONDS (9.7-12.2) H 03/23/17 14:24 INR 1.7 03/23/17 14:24 APTT 49 SECONDS (21-34) H 03/23/17 14:24 - Constitutional Appears: No Acute Distress, Chronically Ill - Head Exam Head Exam: ATRAUMATIC, NORMAL INSPECTION - Eye Exam Eye Exam: EOMI, Normal appearance - Neck Exam Neck Exam: Normal Inspection. absent: Tenderness - Respiratory Exam Respiratory Exam: Clear to Ausculation Bilateral, NORMAL BREATHING PATTERN - Cardiovascular Exam Cardiovascular Exam: REGULAR RHYTHM, +S1 - GI/Abdominal Exam GI & Abdominal Exam: Soft. absent: Tenderness - Extremities Exam Extremities Exam: Normal Inspection. absent: Tenderness - Neurological Exam Neurological Exam: Awake, CN II-XII Intact - Skin Skin Exam: Dry, Warm Assessment and Plan (1) SIADH (syndrome of inappropriate ADH production) Status: Acute (2) Hyponatremia Status: Acute (3) Elevated PSA Status: Acute (4) HTN (hypertension) Status: Acute (5) UTI (urinary tract infection) due to urinary indwelling Cummings catheter Status: Acute (6) CA prostate, adenoca Status: Acute - Assessment and Plan (Free Text) Plan: monitor Na levels; has been stable last 2 weeks would continue fluid restriction due to h/o hyponatremia
[2017-03-24] MEDS: Magnesium Sulfate 1 gm in D5W 1 GM/100 ML BAG IVPB SCH ×2 (09:57→10:45)
[2017-03-24] MEDS: Enoxaparin 60 mg Syringe SC SCH ×2 (09:57→22:02)
--- NOTE | 2017-03-24 11:36 | CP.PCM.PN ---
Subjective - Date & Time of Evaluation Date of Evaluation: 03/24/17 Time of Evaluation: 07:30 - Subjective Subjective: Vascular Surgery Pt S&E, NAEO. Has mild groin pain. No other complaints Objective - Vital Signs/Intake and Output Vital Signs (last 24 hours): Temp Pulse Resp BP Pulse Ox 97.2 F L 89 29 H 104/52 L 97 03/24/17 08:00 03/24/17 10:01 03/24/17 10:01 03/24/17 10:01 03/24/17 10:01 Intake and Output: 03/24/17 03/24/17 06:59 18:59 Intake Total 2407 521 Output Total 400 150 Balance 2006 371 - Medications Medications: Current Medications Acetaminophen (Tylenol 325mg Tab) 650 mg PO Q6H PRN PRN Reason: Pain, moderate (4-7) Last Admin: 03/22/17 22:20 Dose: 650 mg Aspirin (Aspirin Chewable) 81 mg PO DAILY [facility] Enoxaparin Sodium (Lovenox) 60 mg SC Q12 [facility] Last Admin: 03/24/17 09:57 Dose: 60 mg Phenylephrine HCl 30 mg/ (Dextrose) 253 mls @ 10.12 mls/hr IV .Q24H PRN; Protocol; 20 MCG/MIN PRN Reason: TITRATE PER MD ORDER Last Titration: 03/24/17 10:45 Dose: 80 mcg/min, 40.48 mls/hr Piperacillin Sod/Tazobactam Sod (Zosyn 3.375 Gm Iv Premix) 3.375 gm in 50 mls @ 100 mls/hr IVPB Q6H [facility] Last Admin: 03/24/17 07:41 Dose: 100 mls/hr Multivitamins (Hexavitamin) 1 tab PO DAILY [facility] Last Admin: 03/23/17 16:44 Dose: Not Given Rosuvastatin Calcium (Crestor) 10 mg PO HS [facility] Last Admin: 03/23/17 22:08 Dose: Not Given Tamsulosin HCl (Flomax) 0.4 mg PO DAILY [facility] Last Admin: 03/23/17 16:44 Dose: Not Given Vitamin A (Vitamin A & D Oint Ud Foilpak) 0.5 ea TOP Q4 [facility] Last Admin: 03/24/17 07:42 Dose: 0.5 ea - Labs Labs: 03/24/17 06:36 03/24/17 06:36 PT 19.5 SECONDS (9.7-12.2) H 03/23/17 14:24 INR 1.7 03/23/17 14:24 APTT 49 SECONDS (21-34) H 03/23/17 14:24 - Constitutional Appears: Non-toxic, No Acute Distress - Head Exam Head Exam: ATRAUMATIC, NORMOCEPHALIC - Respiratory Exam Respiratory Exam: NORMAL BREATHING PATTERN. absent: Respiratory Distress - Cardiovascular Exam Cardiovascular Exam: +S1, +S2. absent: Bradycardia, Tachycardia - GI/Abdominal Exam GI & Abdominal Exam: Soft. absent: Distended, Tenderness - Exam Additional comments: R groin with soiled dressin. no hematoma, +ecchymosis - Neurological Exam Neurological Exam: Alert, Awake - Skin Skin Exam: Dry, Warm Assessment and Plan - Assessment and Plan (Free Text) Assessment: 81M with Lischemic foot ulcer, s/p aortofemoral angiogram with B/L runoff. selective catherization of left femoral artery. balloon angioplasty of L distal posterior tibial artery, POD#1 Plan: No signs of retroperitoneal bleed on CT. Hgb stable. Monitor wound healing on L foot. No further surgical intervention at this time. D/W Dr. Bebeto Menchaca PGY4
[2017-03-24] MEDS: Multiple Vitamins Tab PO SCH ×2 (12:00→13:21)
--- NOTE | 2017-03-24 12:08 | CARD ---
APPROVED REPORT EKG Measurement Heart [id number] <Conclusion> Atrial fibrillation with premature ventricular or aberrantly conducted complexes Abnormal ECG
--- NOTE | 2017-03-24 12:08 | CARD ---
APPROVED REPORT EKG Measurement Heart [id number] <Conclusion> Atrial fibrillation with rapid ventricular response Abnormal ECG
--- NOTE | 2017-03-24 13:15 | CP.PCM.PN ---
Subjective - Date & Time of Evaluation Date of Evaluation: 03/24/17 Time of Evaluation: 13:05 - Subjective Subjective: Podiatry Progress Note- Dr. Celeste 81 year old male patient seen and evaluated at bedside in the ICU for unstageable decubitus ulcerations to left heel and left lateral 5th metatarsal head. Denies any acute events overnight. Reports severe pain to the 5th toe on palpation. Dressings clean/dry/intact with multipodus boots presents. Denies N/V /F/D/C/SOB Objective - Vital Signs/Intake and Output Vital Signs (last 24 hours): Temp Pulse Resp BP Pulse Ox 97.4 F L 79 18 115/57 L 98 03/24/17 12:00 03/24/17 12:30 03/24/17 12:30 03/24/17 12:30 03/24/17 12:30 Intake and Output: 03/24/17 03/24/17 06:59 18:59 Intake Total 2407 1113.9 Output Total 400 250 Balance 2007 863.9 - Medications Medications: Current Medications Acetaminophen (Tylenol 325mg Tab) 650 mg PO Q6H PRN PRN Reason: Pain, moderate (4-7) Last Admin: 03/22/17 22:20 Dose: 650 mg Aspirin (Aspirin Chewable) 81 mg PO DAILY [facility] Enoxaparin Sodium (Lovenox) 60 mg SC Q12 [facility] Last Admin: 03/24/17 09:57 Dose: 60 mg Phenylephrine HCl 30 mg/ (Dextrose) 253 mls @ 10.12 mls/hr IV .Q24H PRN; Protocol; 20 MCG/MIN PRN Reason: TITRATE PER MD ORDER Last Titration: 03/24/17 12:58 Dose: 60 mcg/min, 30.36 mls/hr Piperacillin Sod/Tazobactam Sod (Zosyn 3.375 Gm Iv Premix) 3.375 gm in 50 mls @ 100 mls/hr IVPB Q6H [facility] Last Admin: 03/24/17 07:41 Dose: 100 mls/hr Multivitamins (Hexavitamin) 1 tab PO DAILY [facility] Last Admin: 03/23/17 16:44 Dose: Not Given Rosuvastatin Calcium (Crestor) 10 mg PO HS [facility] Last Admin: 03/23/17 22:08 Dose: Not Given Tamsulosin HCl (Flomax) 0.4 mg PO DAILY [facility] Last Admin: 03/23/17 16:44 Dose: Not Given Vitamin A (Vitamin A & D Oint Ud Foilpak) 0.5 ea TOP Q4 [facility] Last Admin: 03/24/17 12:06 Dose: 0.5 ea - Labs Labs: 03/24/17 06:36 03/24/17 06:36 PT 19.5 SECONDS (9.7-12.2) H 03/23/17 14:24 INR 1.7 03/23/17 14:24 APTT 49 SECONDS (21-34) H 03/23/17 14:24 - Constitutional Appears: Well, Non-toxic, No Acute Distress - Extremities Exam Additional comments: Left lower extremity exam Vasc: Non-palpable DP and PT noted bilaterally. [employer] <3 sec to all digits Derm: Unstageable decubitus ulceration to heel measuring 3cm x 4cm with no drainage. No PTB, no fluctuance, no malodor noted. No sign of acute infection is noted. No interdigital maceration noted. Additional unstageable ulceration noted to lateral aspect of 5th metatarsal head measuring 1.2cmx 1.0cm with fibrous base, + probe to bone. 3CC of purulent drainage noted from wound, Mild serosanguinous drainage noted. no malodor noted. no ascending cellulitis Ortho: Pain on palpation to heel at the site of ulceration. moderate pain induced on palpation to lateral 5th metatarsal head Neuro: Gross sensation intact - Neurological Exam Neurological Exam: Alert, Awake, Oriented x3 - Psychiatric Exam Psychiatric exam: Normal Affect, Normal Mood Assessment and Plan - Assessment and Plan (Free Text) Assessment: 81 yo male patient seen at bedside for unstageable decubitus ulcerations to left heel and left lateral 5th metatarsal head Plan: Patient seen and evaluated discussed in detail with attending Dr. Celeste Afebrile, WBC 6.8 Bone scan of left foot (-) for OM L foot xray 03/04/17: No evidence of OM L foot dressed with betadine soaked gauze, DSD, and multipodus boots applied B/L Continue multipodus boots at all times to prevent new/worsening decubitus ulcerations OZIEL/PVR show possible occlusion of left anterior tibial and DP arteries 1 day s/p balloon angioplasty of distal posterior tibial with [address] Tate patient will need a debridement of bone/ soft tissue once stabilized and out of ICU for left 5th metatarsal wound cont. IV abx Podiatry will continue to follow while patient in house
--- NOTE | 2017-03-24 13:54 | RAD ---
Chest x-ray single frontal view History: NGT placement. Comparison: 03/23/2017 Findings: NG tube extending into the stomach. Multiple calcified pleural plaques. Biapical pleural thickening with upper lobe granulomatous changes. Scattered nodularity throughout both lungs. Tortuous ectatic aorta. Degenerative changes in the spine and shoulders. Left central venous catheter tip extending to the confluence of right brachiocephalic and SVC junction. Advancement may be helpful. Impression: NG tube extending into the stomach. Multiple calcified pleural plaques. Biapical pleural thickening with upper lobe granulomatous changes. Scattered nodularity throughout both lungs. Tortuous ectatic aorta. Degenerative changes in the spine and shoulders. Left central venous catheter tip extending to the confluence of right brachiocephalic and SVC junction. Advancement may be helpful.
[2017-03-24 14:50] LABS: ALB/GLOB RATIO 0.8 (1.0-2.1); ALBUMIN 2.1 g/dL (3.5-5.0); ALT/SGPT 22 U/L (21-72); AST/SGOT 33 U/L (17-59); BLOOD UREA NITROGEN 4 mg/dL (9-20); CALCIUM 6.9 mg/dl (8.6-10.4); GFR AFRICAN-AMERICAN > 60; GFR NON-AFRICAN AMERICAN > 60; MAGNESIUM 1.8 mg/dL (1.6-2.3)
[2017-03-24] MEDS ORDERED: Potassium Phosphate 15 MMOLE in Dextrose 5% In Water 250 ML IV ONE (15:45)
--- NOTE | 2017-03-24 20:23 | PCM.URO ---
Urology Progress Note - General General: No Complaints - Subjective Abdominal Pain: No Flank Pain: No Nausea: No Vomiting: No Hematuria: No [place]: Yes Chest Pain: No Fever & Chills: No - Objective Lab Studies: Reviewed Lab Results Last 24 Hours: Laboratory Results - last 24 hr 03/23/17 03/24/17 03/24/17 22:40 06:36 06:36 WBC 6.8 RBC 3.41 L Hgb 9.9 L Hct 29.2 L MCV 85.6 MCH 29.1 MCHC 34.0 RDW 15.1 H Plt Count 213 MPV 8.3 Neut % (Auto) 76.1 H Lymph % (Auto) 14.5 L [place] % (Auto) 8.3 Eos % (Auto) 0.2 Baso % (Auto) 0.9 Neut # 5.2 Lymph # 1.0 [place] # 0.6 Eos # 0.0 Baso # 0.1 Sodium 129 L Potassium 3.7 Chloride 104 Carbon Dioxide 19 L Anion Gap 10 BUN 5 L Creatinine 0.5 L Est GFR ( Amer) > 60 Est GFR (Non-Af Amer) > 60 Random Glucose 95 Calcium 6.9 L Phosphorus 2.6 Magnesium 1.4 L Total Bilirubin 0.5 AST 32 ALT 22 Alkaline Phosphatase 67 Troponin I 0.0530 Total Protein 4.9 L Albumin 2.1 L Globulin 2.8 Albumin/Globulin Ratio 0.8 L 03/24/17 14:29 WBC RBC Hgb Hct MCV MCH MCHC RDW Plt Count MPV Neut % (Auto) Lymph % (Auto) [place] % (Auto) Eos % (Auto) Baso % (Auto) Neut # Lymph # [place] # Eos # Baso # Sodium 127 L Potassium 3.6 Chloride 103 Carbon Dioxide 19 L Anion Gap 9 L BUN 4 L Creatinine 0.5 L Est GFR ( Amer) > 60 Est GFR (Non-Af Amer) > 60 Random Glucose 112 H Calcium 6.9 L Phosphorus 1.8 L Magnesium 1.8 Total Bilirubin 0.5 AST 33 ALT 22 Alkaline Phosphatase 53 Troponin I Total Protein 4.8 L Albumin 2.1 L Globulin 2.7 Albumin/Globulin Ratio 0.8 L Intake & Output: Intake & Output 03/24/17 03/24/17 03/25/17 06:59 18:59 06:59 Intake Total 2407 1500.7 123 Output Total 400 330 Balance 2006 1170.7 123 Intake: IV 1112 506 Intake, IV Amount 1295 864.7 63 Left Distal Port 100 326 63 Left Medial Port 400 150 Left Proximal Port 795 388.7 0 Right Upper arm 0 0 Oral 50 30 Tube Feeding 80 30 Output: Urine 400 330 Condom 400 330 Other: # Voids Condom 0 0 # Bowel Movements 0 0 0 Vital Signs: Vital Signs - 24 hr 03/23/17 03/23/17 03/23/17 20:56 21:00 21:57 Temperature Pulse Rate 114 H 114 H Respiratory 33 H 35 H Rate Blood Pressure 86/50 L 95/56 L O2 Sat by Pulse 91 L 95 Oximetry 03/23/17 03/23/17 03/23/17 22:00 22:56 23:56 Temperature Pulse Rate 111 H 100 H Respiratory 32 H 33 H Rate Blood Pressure 83/53 L 80/53 L O2 Sat by Pulse 93 L 100 Oximetry 03/24/17 03/24/17 03/24/17 00:00 00:06 00:10 Temperature Pulse Rate 106 H 125 H 106 H Respiratory 35 H 24 28 H Rate Blood Pressure 85/61 L O2 Sat by Pulse 97 96 100 Oximetry 03/24/17 03/24/17 03/24/17 00:23 00:26 00:33 Temperature 97.9 F Pulse Rate 114 H 103 H Respiratory 19 Rate Blood Pressure 85/60 L 147/83 O2 Sat by Pulse 95 96 Oximetry 03/24/17 03/24/17 03/24/17 00:42 01:00 01:12 Temperature Pulse Rate 95 H 99 H 92 H Respiratory 33 H 27 H 24 Rate Blood Pressure 119/61 127/61 O2 Sat by Pulse 97 91 L 93 L Oximetry 03/24/17 03/24/17 03/24/17 01:30 01:43 02:00 Temperature Pulse Rate 102 H 101 H 101 H Respiratory 22 37 H 35 H Rate Blood Pressure 132/72 O2 Sat by Pulse 95 93 L 95 Oximetry 03/24/17 03/24/17 03/24/17 02:13 02:30 02:36 Temperature Pulse Rate 112 H 101 H 97 H Respiratory 18 36 H Rate Blood Pressure 127/69 125/69 O2 Sat by Pulse 93 L 93 L Oximetry 03/24/17 03/24/17 03/24/17 02:42 03:00 03:12 Temperature Pulse Rate 90 Respiratory 22 Rate Blood Pressure 117/54 L 118/52 L O2 Sat by Pulse 93 L Oximetry 03/24/17 03/24/17 03/24/17 03:30 03:55 04:00 Temperature 97.6 F Pulse Rate 93 H 91 H 89 Respiratory 34 H 22 31 H Rate Blood Pressure 105/46 L O2 Sat by Pulse 95 94 L 98 Oximetry 03/24/17 03/24/17 03/24/17 04:12 04:17 04:30 Temperature Pulse Rate 90 90 91 H Respiratory 34 H 16 Rate Blood Pressure 129/62 129/62 O2 Sat by Pulse 97 99 Oximetry 03/24/17 03/24/17 03/24/17 04:42 05:00 05:14 Temperature Pulse Rate 88 88 Respiratory 33 H 35 H Rate Blood Pressure 130/61 131/63 O2 Sat by Pulse 97 97 Oximetry 03/24/17 03/24/17 03/24/17 05:30 05:42 06:00 Temperature Pulse Rate 84 80 Respiratory 12 22 Rate Blood Pressure 127/50 L O2 Sat by Pulse 97 99 Oximetry 03/24/17 03/24/17 03/24/17 06:12 06:30 06:33 Temperature Pulse Rate 85 87 Respiratory 19 Rate Blood Pressure 123/54 L 123/54 L O2 Sat by Pulse 99 99 Oximetry 03/24/17 03/24/17 03/24/17 07:00 07:01 07:30 Temperature Pulse Rate 79 78 86 Respiratory 13 27 H 26 H Rate Blood Pressure 133/60 O2 Sat by Pulse 99 99 100 Oximetry 03/24/17 03/24/17 03/24/17 07:31 07:55 08:00 Temperature 97.2 F L Pulse Rate 88 85 85 Respiratory 18 21 28 H Rate Blood Pressure 138/80 138/64 O2 Sat by Pulse 100 99 100 Oximetry 03/24/17 03/24/17 03/24/17 08:01 08:30 08:31 Temperature Pulse Rate 84 87 86 Respiratory 29 H 29 H 21 Rate Blood Pressure 135/66 118/52 L O2 Sat by Pulse 100 98 98 Oximetry 03/24/17 03/24/17 03/24/17 09:00 09:01 09:30 Temperature Pulse Rate 79 81 90 Respiratory 25 H 25 H 9 L Rate Blood Pressure 117/52 L O2 Sat by Pulse 99 98 99 Oximetry 03/24/17 03/24/17 03/24/17 09:31 10:00 10:01 Temperature Pulse Rate 88 85 89 Respiratory 14 13 29 H Rate Blood Pressure 109/55 L 104/52 L O2 Sat by Pulse 95 98 97 Oximetry 03/24/17 03/24/17 03/24/17 10:30 10:31 11:00 Temperature Pulse Rate 80 85 79 Respiratory 22 18 20 Rate Blood Pressure 108/51 L 115/59 L O2 Sat by Pulse 98 98 96 Oximetry 03/24/17 03/24/17 03/24/17 11:30 12:00 12:30 Temperature 97.4 F L Pulse Rate 77 86 79 Respiratory 18 16 18 Rate Blood Pressure 100/52 L 105/52 L 115/57 L O2 Sat by Pulse 99 98 98 Oximetry 03/24/17 03/24/17 03/24/17 13:00 13:30 14:00 Temperature Pulse Rate 82 85 78 Respiratory 20 18 20 Rate Blood Pressure 118/54 L 112/55 L 111/57 L O2 Sat by Pulse 96 99 97 Oximetry 03/24/17 03/24/17 03/24/17 14:30 15:00 15:30 Temperature Pulse Rate 80 88 98 H Respiratory 18 16 18 Rate Blood Pressure 123/60 119/56 L 108/52 L O2 Sat by Pulse 98 98 98 Oximetry 03/24/17 03/24/17 03/24/17 16:00 17:00 18:00 Temperature 98.2 F Pulse Rate 96 H 94 H 92 H Respiratory 20 18 20 Rate Blood Pressure 114/57 L 98/46 L 97/44 L O2 Sat by Pulse 97 96 97 Oximetry 03/24/17 03/24/17 19:00 19:10 Temperature Pulse Rate 96 H 99 H Respiratory 18 19 Rate Blood Pressure 101/54 L 101/54 L O2 Sat by Pulse 98 97 Oximetry - Physical Exam Abdominal Exam: Soft, Non-Tender, Non-Distended Back: No CVA Tenderness Genitalia: Without Inflammation Urine Color: Clear, Yellow - Male Scrotum: Normal (Wound - clean, dry, healing well) - Plan Wound Care: Yes Additional Information: ICU care - Date & Time of Note Date: 03/24/17 Time: 20:05
--- NOTE | 2017-03-24 21:18 | CP.PCM.PN ---
Subjective - Date & Time of Evaluation Date of Evaluation: 03/24/17 Time of Evaluation: 17:45 - Subjective Subjective: patient seen and evaluated at bedside in the ICU for unstageable decubitus ulcerations to left heel and left lateral 5th metatarsal head. Denies any acute events overnight. Reports severe pain to the 5th toe on palpation. Dressings clean/dry/intact with multipodus boots presents. Denies N/V/F/D/C/SOB Objective - Vital Signs/Intake and Output Vital Signs (last 24 hours): Temp Pulse Resp BP Pulse Ox 98.2 F 99 H 19 101/54 L 97 03/24/17 16:00 03/24/17 19:10 03/24/17 19:10 03/24/17 19:10 03/24/17 19:10 Intake and Output: 03/24/17 03/25/17 18:59 06:59 Intake Total 1500.7 123 Output Total 330 Balance 1170.7 123 - Medications Medications: Current Medications Acetaminophen (Tylenol 325mg Tab) 650 mg PO Q6H PRN PRN Reason: Pain, moderate (4-7) Last Admin: 03/22/17 22:20 Dose: 650 mg Aspirin (Aspirin Chewable) 81 mg PO DAILY [facility] Last Admin: 03/24/17 13:21 Dose: 81 mg Enoxaparin Sodium (Lovenox) 60 mg SC Q12 [facility] Last Admin: 03/24/17 09:57 Dose: 60 mg Phenylephrine HCl 30 mg/ (Dextrose) 253 mls @ 10.12 mls/hr IV .Q24H PRN; Protocol; 20 MCG/MIN PRN Reason: TITRATE PER MD ORDER Last Titration: 03/24/17 16:00 Dose: Infused Piperacillin Sod/Tazobactam Sod (Zosyn 3.375 Gm Iv Premix) 3.375 gm in 50 mls @ 100 mls/hr IVPB Q6H [facility] Last Admin: 03/24/17 15:19 Dose: 100 mls/hr Multivitamins (Hexavitamin) 1 tab PO DAILY [facility] Last Admin: 03/24/17 13:21 Dose: 1 tab Rosuvastatin Calcium (Crestor) 10 mg PO HS [facility] Last Admin: 03/23/17 22:08 Dose: Not Given Tamsulosin HCl (Flomax) 0.4 mg PO DAILY [facility] Last Admin: 03/24/17 13:21 Dose: 0.4 mg Vitamin A (Vitamin A & D Oint Ud Foilpak) 0.5 ea TOP Q4 [facility] Last Admin: 03/24/17 15:19 Dose: 0.5 ea - Labs Labs: 03/24/17 06:36 03/24/17 14:29 PT 19.5 SECONDS (9.7-12.2) H 03/23/17 14:24 INR 1.7 03/23/17 14:24 APTT 49 SECONDS (21-34) H 03/23/17 14:24 Assessment and Plan (1) CA prostate, adenoca Status: Acute (2) Sepsis Assessment & Plan: Transferred to ICU post episode AFib with RVR post left foot angiopolasty Awake now- mental status same Na-129- acceptable Now in NAD Status: Acute (3) UTI (urinary tract infection) Status: Acute (4) Acute urinary retention Status: Acute (5) CAD (coronary artery disease) Status: Acute (6) Hyponatremia Status: Acute (7) S/P TURP (status post transurethral resection of prostate) Status: Acute (8) Malnourished Status: Acute (9) S/P orchiectomy Status: Acute (10) PVD (peripheral vascular disease) Status: Acute
[2017-03-25] MEDS: Piperacill/Tazo 3.375gm in Dex 3.375 GM/50 ML BAG IVPB SCH ×4 (01:30→20:00)
[2017-03-25] MEDS: Vitamins A & D Oint UD Foilpak TOP SCH ×6 (05:00→20:00)
[2017-03-25 07:05] LABS: BASO % 0.5 % (0.0-2.0); EOS # 0.1 K/uL (0.0-0.7); EOS % 2.9 % (0.0-4.0); HEMOGLOBIN 8.3 g/dL (12.0-18.0); LYMPH # 0.9 K/uL (1.0-4.3); LYMPH % 18.6 % (20.0-40.0); MEAN CELL VOLUME 84.7 fL (80.0-94.0); MEAN CORPUSCULAR HEMOGLOBIN 28.9 pg (27.0-31.0); MEAN CORPUSCULAR HGB CONC 34.2 g/dL (33.0-37.0); MEAN PLATELET VOLUME 8.1 fL (7.2-11.7); MONO # 0.4 K/uL (0.0-0.8); MONO % 8.7 % (0.0-10.0); NEUT # 3.3 K/uL (1.8-7.0); NEUT % 69.3 % (50.0-75.0); NRBC % 0.1 % (0.0-2.0); RBC 2.87 Mil/uL (4.40-5.90); RED CELL DISTRIBUTION WIDTH 15.2 % (11.5-14.5); WHITE BLOOD COUNT 4.8 K/uL (4.8-10.8)
--- NOTE | 2017-03-25 08:43 | CON ---
CARDIOLOGY CONSULTATION DATE: 03/24/2017 REASON FOR CONSULTATION: Rapid atrial fibrillation and hypotension. HISTORY OF PRESENT ILLNESS: The patient is an 81-year-old male who has a history of coronary artery disease, history of peripheral vascular disease, and history of prostatic carcinoma, status post TURP and bilateral orchiectomy, initially was admitted to rehab because of dark urine. The patient underwent yesterday an aortofemoral angiogram with bilateral runoff and selective catheterization of the left femoral artery with balloon angioplasty of the distal posterior tibial artery with 2-mm balloon. Subsequently, the patient became hypotensive and was in rapid atrial fibrillation and was admitted to the ICU. The patient was attempted cardioversion twice, but without success and was given IV digoxin. The patient last night converted to sinus rhythm; however, he still remains hypotensive, on phenylephrine infusion. SOCIAL HISTORY: Unobtainable in detail at this time. MEDICATIONS: Aspirin 81 mg once a day, Crestor 10 mg once a day, Flomax 0.4 mg once a day, Lovenox 60 mg subcutaneously twice a day, phenylephrine infusion, and Zosyn 3.375 g intravenously q.6 hours. REVIEW OF SYSTEMS: No reported ventricular tachycardia. No reported fever or chills. No reported vomiting or diarrhea. PHYSICAL EXAMINATION: GENERAL: The patient is an elderly male who does not appear to be in acute distress. VITAL SIGNS: Blood pressure 115/67, heart rate 79, temperature 97.4, and respirations 18. HEENT: Pale conjunctivae. CHEST: Bilateral rhonchi. HEART: S1 and S2 regular. ABDOMEN: Soft. EXTREMITIES: Pumps are applied to both lower extremity and dressing of the left foot ulcer. LABORATORY DATA: Today's hemoglobin and hematocrit 9.9 and 29.2, white count 6.8, and platelet count 215,000. SMA-7: Sodium 129, potassium 3.7, chloride 104, CO2 of 19, glucose 95, BUN 5, creatinine 0.5, and calcium 6.9. Two sets of troponins are within normal limits. Magnesium is 1.4. INR is 1.7 and PTT 49. Stool occult blood is negative. Today's EKG reveals normal sinus rhythm, old inferior infarct. Cardiac catheterization performed in 09/2016 reveals triple vessel disease with totally occluded mid right coronary artery most likely chronic total occlusion, critical disease of the mid circumflex artery, and the plan was to do stent angioplasty to the left circumflex artery; however, it is not clear if that procedure was done and what kind of stent was used. Chest, abdomen, and pelvis CT angio was performed yesterday revealed no evidence of pulmonary embolus, thoracic or abdominal aortic aneurysm or dissection. No evidence of aortic rupture throughout atherosclerotic changes seen. Mild bilateral common iliac artery aneurysms are identified distally, which terminate bifurcation. High-grade stenosis suggested at the proximal superior mesenteric artery and right renal artery. Pulmonary fibrosis appreciated diffusely. Right lower lobe infiltrate suspected. Questionable mild anasarca. Cystitis not excluded. Chest x-ray revealed questionable right lower lobe infiltrate with prominent bronchovascular markings and COPD picture. ASSESSMENT: 1. Paroxysmal atrial fibrillation. 2. Coronary artery disease with known chronic total occlusion of the right coronary artery with critical circumflex artery that an intervention was planned at that time. 3. Prostatic carcinoma, status post transurethral resection of the prostate and bilateral orchiectomy. 4. Anemia. 5. Peripheral vascular disease, status post balloon angioplasty to the left posterior tibial artery. 6. Urinary tract infection with methicillin-resistant Staphylococcus aureus. RECOMMENDATIONS: Continue aspirin 81 mg once a day and Crestor 10 mg once a day. I did initiate therapeutic subcutaneous Lovenox last night at 60 mg twice a day. Continue IV Zosyn 3.375 g intravenously q.6 hours, IV magnesium sulphate was replaced today in a dose of 1 g. I will follow tomorrow's chemistry including magnesium level and when you go to replace with a total of 1 g. I will discuss with the family if the patient had coronary intervention in 09/2016 and whether he was on antiplatelet therapy and for how long; however, now therapeutic subcutaneous Lovenox will be maintained. Theo Cervantes MD
[2017-03-25 08:45] LABS: ALBUMIN 1.9 g/dL (3.5-5.0)
[2017-03-25] MEDS ORDERED: Potassium & Sodium Phosphate NG ONE (08:45)
[2017-03-25] MEDS: Multiple Vitamins Tab PO SCH (09:20)
[2017-03-25] MEDS: Enoxaparin 60 mg Syringe SC SCH ×2 (09:21→22:00)
[2017-03-25 10:00] LABS: ALB/GLOB RATIO 0.7 (1.0-2.1); ALT/SGPT 23 U/L (21-72); AST/SGOT 30 U/L (17-59); BLOOD UREA NITROGEN 4 mg/dL (9-20); CALCIUM 6.9 mg/dl (8.6-10.4); GFR AFRICAN-AMERICAN > 60; GFR NON-AFRICAN AMERICAN > 60; MAGNESIUM 1.6 mg/dL (1.6-2.3)
--- NOTE | 2017-03-25 11:03 | CARD ---
APPROVED REPORT EKG Measurement Heart [id number] <Conclusion> Normal sinus rhythm Anterior infarct, age undetermined Abnormal ECG
--- NOTE | 2017-03-25 12:25 | CARD ---
APPROVED REPORT EXAM: Two-dimensional and M-mode echocardiogram with Doppler and color Doppler. Other Information Quality : GoodRhythm : INDICATION Dizziness and Vertigo CAD Prostate CA RISK FACTORS Hypertension 2D DIMENSIONS IVSd1.1 (0.7-1.1cm)LVDd3.6 (3.9-5.9cm) PWd0.9 (0.7-1.1cm)LVDs2.2 (2.5-4.0cm) FS (%) 39.0 %LVEF (%)70.3 (>50%) M-Mode DIMENSIONS Left Atrium (MM)4.10 (2.5-4.0cm)Aortic Root3.84 (2.2-3.7cm) Aortic Cusp Exc.2.31 (1.5-2.0cm) Mitral Valve MV E Yysiodhm71.2cm/sMV A Utzxatle271.7cm/sE/A ratio0.7 TDI E/Lateral E'0.0E/Medial E'0.0 Tricuspid Valve TR Peak Dftrsflm753ou/sTR Peak Gr.[id number] LEFT VENTRICLE The left ventricle is normal size. There is normal left ventricular wall thickness. The left ventricular function is normal. The left ventricular ejection fraction is within the normal range. There is normal LV segmental wall motion. Tissue Doppler imaging reveals mild left ventricular diastolic dysfunction. Transmitral Doppler flow pattern is Grade I-abnormal relaxation pattern. No left ventricle thrombus noted on this study. There is no ventricular septal defect visualized. There is no left ventricular aneurysm. There is no mass noted in the left ventricle. RIGHT VENTRICLE The right ventricle is normal size. There is normal right ventricular wall thickness. The right ventricular systolic function is normal. ATRIA The left atrium size is normal. The right atrium size is normal. The interatrial septum is intact with no evidence for an atrial septal defect. AORTIC VALVE The aortic valve is calcified but opens well. No aortic regurgitation is present. There is no aortic valvular stenosis. There is no aortic valvular vegetation. MITRAL VALVE The mitral valve is calcified but opens well. Mitral annular calcification is mild. There is no mitral valve stenosis. Mitral regurgitation is mild. TRICUSPID VALVE The tricuspid valve is normal in structure. There is no tricuspid valve regurgitation noted. PULMONIC VALVE The pulmonary valve is normal in structure. There is trace to mild pulmonic valvular regurgitation. GREAT VESSELS The aortic root is normal in size. The ascending aorta is normal in size. The pulmonary artery is normal. The IVC is normal in size and collapses >50% with inspiration. PERICARDIAL EFFUSION There is no pericardial effusion. <Conclusion> Tissue Doppler imaging reveals mild left ventricular diastolic dysfunction. Transmitral Doppler flow pattern is Grade I-abnormal relaxation pattern. Mitral regurgitation is mild. There is trace to mild pulmonic valvular regurgitation.
--- NOTE | 2017-03-25 13:54 | CP.PCM.PN ---
Subjective - Date & Time of Evaluation Date of Evaluation: 03/25/17 Time of Evaluation: 13:52 - Subjective Subjective: Same lethargy s/p LE angioplasty Na now 126- trending down No other new events Objective - Vital Signs/Intake and Output Vital Signs (last 24 hours): Temp Pulse Resp BP Pulse Ox 98.7 F 85 32 H 119/58 L 100 03/25/17 12:00 03/25/17 12:00 03/25/17 12:00 03/25/17 11:35 03/25/17 12:00 Intake and Output: 03/25/17 03/25/17 06:59 18:59 Intake Total 613 610 Output Total 620 Balance 613 -10 - Medications Medications: Current Medications Acetaminophen (Tylenol 325mg Tab) 650 mg PO Q6H PRN PRN Reason: Pain, moderate (4-7) Last Admin: 03/22/17 22:20 Dose: 650 mg Aspirin (Aspirin Chewable) 81 mg PO DAILY [facility] Last Admin: 03/25/17 09:20 Dose: 81 mg Enoxaparin Sodium (Lovenox) 60 mg SC Q12 [facility] Last Admin: 03/25/17 09:21 Dose: 60 mg Phenylephrine HCl 30 mg/ (Dextrose) 253 mls @ 10.12 mls/hr IV .Q24H PRN; Protocol; 20 MCG/MIN PRN Reason: TITRATE PER MD ORDER Last Titration: 03/24/17 16:00 Dose: Infused Piperacillin Sod/Tazobactam Sod (Zosyn 3.375 Gm Iv Premix) 3.375 gm in 50 mls @ 100 mls/hr IVPB Q6H [facility] Last Admin: 03/25/17 07:51 Dose: 100 mls/hr Metoprolol Tartrate (Lopressor) 25 mg PO BID [facility] Last Admin: 03/25/17 09:20 Dose: 25 mg Multivitamins (Hexavitamin) 1 tab PO DAILY [facility] Last Admin: 03/25/17 09:20 Dose: 1 tab Rosuvastatin Calcium (Crestor) 10 mg PO HS [facility] Last Admin: 03/24/17 22:03 Dose: 10 mg Tamsulosin HCl (Flomax) 0.4 mg PO DAILY [facility] Last Admin: 03/25/17 09:21 Dose: 0.4 mg Vitamin A (Vitamin A & D Oint Ud Foilpak) 0.5 ea TOP Q4 [facility] Last Admin: 03/25/17 12:15 Dose: 0.5 ea - Labs Labs: 03/25/17 06:52 03/25/17 06:52 PT 19.5 SECONDS (9.7-12.2) H 03/23/17 14:24 INR 1.7 03/23/17 14:24 APTT 49 SECONDS (21-34) H 03/23/17 14:24 - Constitutional Appears: No Acute Distress, Chronically Ill - Head Exam Head Exam: ATRAUMATIC, NORMAL INSPECTION - Eye Exam Eye Exam: EOMI, Normal appearance - Neck Exam Neck Exam: Normal Inspection. absent: Tenderness - Respiratory Exam Respiratory Exam: Clear to Ausculation Bilateral, NORMAL BREATHING PATTERN - Cardiovascular Exam Cardiovascular Exam: REGULAR RHYTHM, +S1 - GI/Abdominal Exam GI & Abdominal Exam: Soft. absent: Tenderness - Extremities Exam Extremities Exam: Normal Inspection. absent: Tenderness - Neurological Exam Neurological Exam: Awake, CN II-XII Intact - Skin Skin Exam: Dry, Warm Assessment and Plan (1) SIADH (syndrome of inappropriate ADH production) Status: Acute (2) Hyponatremia Status: Acute (3) Elevated PSA Status: Acute (4) HTN (hypertension) Status: Acute (5) UTI (urinary tract infection) due to urinary indwelling Cummings catheter Status: Acute (6) CA prostate, adenoca Status: Acute - Assessment and Plan (Free Text) Plan: If Na level decreases- can give solitary dose tovalptan
[2017-03-25] MEDS ORDERED: Magnesium Chloride 64 mg ER Tab PO SCH (14:00)
--- NOTE | 2017-03-25 14:42 | PN ---
DATE: FOLLOWUP SUBJECTIVE: The patient is off phenylephrine. He is currently in sinus rhythm, confused. No reported ventricular tachycardia. PHYSICAL EXAMINATION: VITAL SIGNS: Blood pressure 119/58, heart rate 80, temperature 98.7, respirations 32. HEENT: Pale conjunctivae. CHEST: Bilateral coarse crepitations consistent with secretions. HEART: S1 and S2 regular. EXTREMITIES: Trace leg edema. LABORATORY DATA: Hemoglobin and hematocrit 8.3 and 24.3, white count 12.8, platelet count 197,000. SMA-7: Sodium 126, potassium 3.5, chloride 102, CO2 of 22, glucose 99, BUN 4, creatinine 0.4. Yesterday's chest x-ray report: Biapical pleural thickening with upper lobe granulomatous changes. Scattered nodularity throughout both lungs. Tortuous ectatic aorta. Multiple calcified pleural plaques. ASSESSMENT: 1. Paroxysmal atrial fibrillation. 2. Peripheral vascular disease, status post balloon angioplasty to the left posterior tibial artery. 3. Prostatic carcinoma, status post transurethral resection of prostate and bilateral orchiectomy. 4. Coronary artery disease with history of total occlusion of the right coronary artery as well as significant circumflex artery disease in the summer of last year with presumed intervention performed on the circumflex artery. 5. Methicillin-resistant Staphylococcus aureus urinary tract infection. 6. Hyponatremia and hypokalemia. 7. Mild hypomagnesemia. RECOMMENDATIONS: Continue aspirin 81 mg once a day, therapeutic subcutaneous Lovenox at 60 mg twice a day, Lopressor 25 mg twice a day, Crestor 10 mg once a day, Zosyn 3.375 g intravenously q. 6 hours, potassium chloride and Neutra-Phos were replaced today. I will start Slow-Mag at 1 tablet daily. Obtain stool for C. diff as well as TSH level. Theo Cervantes MD
[2017-03-25] MEDS: Magnesium Oxide 400 mg Tab UD NG SCH (15:18)
--- NOTE | 2017-03-25 16:00 | CP.PCM.PN ---
Subjective - Date & Time of Evaluation Date of Evaluation: 03/25/17 Time of Evaluation: 15:55 - Subjective Subjective: Podiatry Progress Note- Dr. Celeste 81 y/o male seen and evaluated at bedside in the ICU for unstageable decubitus ulcerations to left heel and left lateral 5th metatarsal head. Denies any acute events overnight. Reports severe pain to the 5th toe on palpation. Dressings clean/dry/intact with multipodus boots presents. Denies N/V/F/D/C/SOB Objective - Vital Signs/Intake and Output Vital Signs (last 24 hours): Temp Pulse Resp BP Pulse Ox 98.7 F 96 H 38 H 121/61 97 03/25/17 12:00 03/25/17 15:35 03/25/17 15:35 03/25/17 15:35 03/25/17 15:35 Intake and Output: 03/25/17 03/25/17 06:59 18:59 Intake Total 613 610 Output Total 620 Balance 613 -10 - Medications Medications: Current Medications Acetaminophen (Tylenol 325mg Tab) 650 mg PO Q6H PRN PRN Reason: Pain, moderate (4-7) Last Admin: 03/22/17 22:20 Dose: 650 mg Aspirin (Aspirin Chewable) 81 mg PO DAILY [facility] Last Admin: 03/25/17 09:20 Dose: 81 mg Enoxaparin Sodium (Lovenox) 60 mg SC Q12 [facility] Last Admin: 03/25/17 09:21 Dose: 60 mg Phenylephrine HCl 30 mg/ (Dextrose) 253 mls @ 10.12 mls/hr IV .Q24H PRN; Protocol; 20 MCG/MIN PRN Reason: TITRATE PER MD ORDER Last Titration: 03/24/17 16:00 Dose: Infused Piperacillin Sod/Tazobactam Sod (Zosyn 3.375 Gm Iv Premix) 3.375 gm in 50 mls @ 100 mls/hr IVPB Q6H [facility] Last Admin: 03/25/17 14:47 Dose: 100 mls/hr Magnesium Oxide (Mag-Ox) 400 mg NG DAILY [facility] Last Admin: 03/25/17 15:18 Dose: 400 mg Metoprolol Tartrate (Lopressor) 25 mg PO BID [facility] Last Admin: 03/25/17 09:20 Dose: 25 mg Multivitamins (Hexavitamin) 1 tab PO DAILY [facility] Last Admin: 03/25/17 09:20 Dose: 1 tab Rosuvastatin Calcium (Crestor) 10 mg PO HS [facility] Last Admin: 03/24/17 22:03 Dose: 10 mg Tamsulosin HCl (Flomax) 0.4 mg PO DAILY [facility] Last Admin: 03/25/17 09:21 Dose: 0.4 mg Vitamin A (Vitamin A & D Oint Ud Foilpak) 0.5 ea TOP Q4 [facility] Last Admin: 03/25/17 15:18 Dose: 0.5 ea - Labs Labs: 03/25/17 06:52 03/25/17 06:52 PT 19.5 SECONDS (9.7-12.2) H 03/23/17 14:24 INR 1.7 03/23/17 14:24 APTT 49 SECONDS (21-34) H 03/23/17 14:24 - Constitutional Appears: Well, Non-toxic, No Acute Distress - Extremities Exam Additional comments: Left lower extremity exam Vasc: Non-palpable DP and PT noted bilaterally. [employer] <3 sec to all digits Derm: Unstageable decubitus ulceration to heel measuring 3cm x 4cm with no drainage. No PTB, no fluctuance, no malodor noted. No sign of acute infection is noted. No interdigital maceration noted. Additional unstageable ulceration noted to lateral aspect of 5th metatarsal head measuring 1.2cmx 1.0cm with fibrous base, + probe to bone. 1CC of purulent drainage noted from wound, Mild serosanguinous drainage noted. no malodor noted. no ascending cellulitis Ortho: Pain on palpation to heel at the site of ulceration. moderate pain induced on palpation to lateral 5th metatarsal head Neuro: Gross sensation intact - Neurological Exam Neurological Exam: Alert, Awake - Psychiatric Exam Psychiatric exam: Normal Affect Assessment and Plan - Assessment and Plan (Free Text) Assessment: 81 yo male seen at bedside for unstageable decubitus ulcerations to left heel and left lateral 5th metatarsal head Plan: Patient seen and evaluated discussed in detail with attending Dr. Celeste Afebriyana, WBC 4.8 Bone scan of left foot (-) for OM L foot xray 03/04/17: No evidence of OM L foot dressed with betadine soaked gauze, DSD, and multipodus boots applied B/L Continue multipodus boots at all times to prevent new/worsening decubitus ulcerations cont. IV abx patient to OR next week pending medical optimization for debridement of bone/ soft tissue of 5th metatarsal once stabilized f/u medical and cardiac optimization Podiatry will continue to follow while patient in house
--- NOTE | 2017-03-25 17:20 | PCM.URO ---
Urology Progress Note - Subjective Abdominal Pain: No Flank Pain: No Nausea: No Vomiting: No Voiding Well: Yes (incontinent) Hematuria: No Good Stream: Yes Chest Pain: No Other: feels weak, but less today - Objective Lab Results Last 24 Hours: Laboratory Results - last 24 hr 03/25/17 03/25/17 06:52 06:52 WBC 4.8 RBC 2.87 L Hgb 8.3 L Hct 24.3 L MCV 84.7 MCH 28.9 MCHC 34.2 RDW 15.2 H Plt Count 197 MPV 8.1 Neut % (Auto) 69.3 Lymph % (Auto) 18.6 L [place] % (Auto) 8.7 Eos % (Auto) 2.9 Baso % (Auto) 0.5 Neut # 3.3 Lymph # 0.9 L [place] # 0.4 Eos # 0.1 Baso # 0.0 Sodium 126 L Potassium 3.5 L Chloride 102 Carbon Dioxide 22 Anion Gap 6 L BUN 4 L Creatinine 0.4 L Est GFR ( Amer) > 60 Est GFR (Non-Af Amer) > 60 Random Glucose 99 Calcium 6.9 L Phosphorus 2.1 L Magnesium 1.6 Total Bilirubin 0.4 AST 30 ALT 23 Alkaline Phosphatase 50 Total Protein 4.5 L Albumin 1.9 L Globulin 2.6 Albumin/Globulin Ratio 0.7 L Intake & Output: Intake & Output 03/24/17 03/25/17 03/25/17 18:59 06:59 18:59 Intake Total 1500.7 613 960 Output Total 330 740 Balance 1170.7 613 220 Intake: IV 506 Intake, IV Amount 864.7 163 200 Left Distal Port 326 163 Left Medial Port 150 Left Proximal Port 388.7 0 150 Left Subclavian Proximal 50 Port Right Upper arm 0 0 0 Oral 50 30 280 Tube Feeding 80 420 480 Output: Urine 330 470 Condom 330 470 Stool 270 Other: # Voids Condom 0 0 0 # Bowel Movements 0 0 0 Vital Signs: Vital Signs - 24 hr 03/24/17 03/24/17 03/24/17 18:00 19:00 19:10 Temperature Pulse Rate 92 H 96 H 99 H Respiratory 20 18 19 Rate Blood Pressure 97/44 L 101/54 L 101/54 L O2 Sat by Pulse 97 98 97 Oximetry 03/24/17 03/24/17 03/24/17 20:00 20:10 20:30 Temperature 97.4 F L Pulse Rate 93 H 95 H 110 H Respiratory 31 H 34 H 21 Rate Blood Pressure 115/57 L O2 Sat by Pulse 95 94 L 95 Oximetry 03/24/17 03/24/17 03/24/17 20:40 21:00 21:10 Temperature Pulse Rate 107 H 98 H 99 H Respiratory 25 H 28 H 29 H Rate Blood Pressure 114/78 126/64 O2 Sat by Pulse 94 L 96 96 Oximetry 03/24/17 03/24/17 03/24/17 21:30 21:40 22:00 Temperature Pulse Rate 102 H 103 H 102 H Respiratory 30 H 29 H 22 Rate Blood Pressure 114/70 O2 Sat by Pulse 92 L 94 L 91 L Oximetry 03/24/17 03/24/17 03/24/17 22:10 22:30 22:41 Temperature Pulse Rate 100 H 98 H 107 H Respiratory 29 H 18 18 Rate Blood Pressure 112/70 136/70 O2 Sat by Pulse 94 L 96 96 Oximetry 03/24/17 03/24/17 03/24/17 23:00 23:07 23:10 Temperature Pulse Rate 102 H 102 H 103 H Respiratory 28 H 24 32 H Rate Blood Pressure 107/52 L O2 Sat by Pulse 95 96 95 Oximetry 03/24/17 03/24/17 03/25/17 23:30 23:40 00:00 Temperature 97.4 F L Pulse Rate 106 H 107 H 101 H Respiratory 42 H 31 H 23 Rate Blood Pressure 112/57 L O2 Sat by Pulse 95 95 96 Oximetry 03/25/17 03/25/17 03/25/17 00:10 00:30 00:40 Temperature Pulse Rate 100 H 101 H 102 H Respiratory 29 H 28 H 30 H Rate Blood Pressure 107/49 L 106/52 L O2 Sat by Pulse 95 98 97 Oximetry 03/25/17 03/25/17 03/25/17 01:00 01:10 01:30 Temperature Pulse Rate 101 H 107 H 99 H Respiratory 28 H 15 27 H Rate Blood Pressure 114/53 L O2 Sat by Pulse 96 94 L 97 Oximetry 03/25/17 03/25/17 03/25/17 01:41 02:00 02:11 Temperature Pulse Rate 97 H 98 H 113 H Respiratory 31 H 28 H 22 Rate Blood Pressure 102/54 L 122/40 L O2 Sat by Pulse 98 99 97 Oximetry 03/25/17 03/25/17 03/25/17 02:30 02:40 03:00 Temperature Pulse Rate 105 H 98 H 97 H Respiratory 19 26 H 23 Rate Blood Pressure 105/61 O2 Sat by Pulse 95 96 99 Oximetry 03/25/17 03/25/17 03/25/17 03:10 03:30 03:40 Temperature Pulse Rate 97 H 95 H 96 H Respiratory 20 26 H 24 Rate Blood Pressure 110/51 L 111/52 L O2 Sat by Pulse 97 99 99 Oximetry 03/25/17 03/25/17 03/25/17 04:00 04:10 04:30 Temperature 97.4 F L Pulse Rate 98 H 96 H 95 H Respiratory 28 H 21 30 H Rate Blood Pressure 103/55 L O2 Sat by Pulse 97 98 97 Oximetry 03/25/17 03/25/17 03/25/17 04:40 05:00 05:10 Temperature Pulse Rate 94 H 93 H 96 H Respiratory 17 21 22 Rate Blood Pressure 116/53 L 97/51 L O2 Sat by Pulse 100 99 98 Oximetry 03/25/17 03/25/17 03/25/17 05:30 05:41 06:00 Temperature Pulse Rate 95 H 92 H 96 H Respiratory 29 H 25 H 28 H Rate Blood Pressure 101/41 L O2 Sat by Pulse 96 95 97 Oximetry 03/25/17 03/25/17 03/25/17 06:10 06:30 06:40 Temperature Pulse Rate 101 H 98 H 98 H Respiratory 26 H 20 Rate Blood Pressure 108/53 L 115/57 L O2 Sat by Pulse 93 L 94 L 93 L Oximetry 03/25/17 03/25/17 03/25/17 07:00 07:10 08:00 Temperature 97.5 F L Pulse Rate 98 H 101 H 96 H Respiratory 21 22 21 Rate Blood Pressure 114/56 L O2 Sat by Pulse 96 93 L Oximetry 03/25/17 03/25/17 03/25/17 08:35 09:00 09:20 Temperature Pulse Rate 98 H 106 H Respiratory 34 H 22 Rate Blood Pressure 125/69 125/69 O2 Sat by Pulse 99 98 Oximetry 03/25/17 03/25/17 03/25/17 09:35 10:00 10:35 Temperature Pulse Rate 97 H 86 79 Respiratory 24 16 28 H Rate Blood Pressure 128/62 126/54 L O2 Sat by Pulse 100 99 100 Oximetry 03/25/17 03/25/17 03/25/17 11:00 11:35 12:00 Temperature 98.7 F Pulse Rate 83 80 85 Respiratory 22 28 H 32 H Rate Blood Pressure 119/58 L O2 Sat by Pulse 99 100 100 Oximetry 03/25/17 03/25/17 03/25/17 12:35 13:00 13:35 Temperature Pulse Rate 90 99 H 96 H Respiratory 21 20 35 H Rate Blood Pressure 122/62 116/53 L O2 Sat by Pulse 95 85 L 94 L Oximetry 03/25/17 03/25/17 03/25/17 14:00 14:35 15:00 Temperature Pulse Rate 99 H 93 H 91 H Respiratory 24 15 36 H Rate Blood Pressure 109/43 L O2 Sat by Pulse 90 L 95 98 Oximetry 03/25/17 03/25/17 03/25/17 15:35 15:55 16:00 Temperature 98.2 F Pulse Rate 96 H 97 H 92 H Respiratory 38 H 34 H 34 H Rate Blood Pressure 121/61 118/57 L O2 Sat by Pulse 97 100 100 Oximetry - Physical Exam Abdominal Exam: Soft, Non-Tender, Non-Distended Bowel Sounds: Absent Wound: Clean Back: No CVA Tenderness Genitalia: Without Inflammation Urine Color: Clear (ext catheter), Yellow - Plan Wound Care: Yes Intake & Output: Yes Additional Information: Imp: urologically stable. In ICU. Prostate ca, p orchiectomy. YS - Date & Time of Note Date: 03/25/17 Time: 01:10
--- NOTE | 2017-03-25 23:15 | CP.PCM.PN ---
Subjective - Date & Time of Evaluation Date of Evaluation: 03/25/17 Time of Evaluation: 18:00 - Subjective Subjective: Pt seen and examined, s/p Turp, on NG tube feeding, his oral intake is poor , he is slightly weaker and still in sinus rythm Objective - Vital Signs/Intake and Output Vital Signs (last 24 hours): Temp Pulse Resp BP Pulse Ox 98.2 F 84 22 103/54 L 92 L 03/25/17 16:00 03/25/17 19:00 03/25/17 19:00 03/25/17 17:50 03/25/17 19:00 Intake and Output: 03/25/17 03/26/17 18:59 06:59 Intake Total 1110 50 Output Total 940 Balance 170 50 - Medications Medications: Current Medications Acetaminophen (Tylenol 325mg Tab) 650 mg PO Q6H PRN PRN Reason: Pain, moderate (4-7) Last Admin: 03/22/17 22:20 Dose: 650 mg Aspirin (Aspirin Chewable) 81 mg PO DAILY [facility] Last Admin: 03/25/17 09:20 Dose: 81 mg Enoxaparin Sodium (Lovenox) 60 mg SC Q12 [facility] Last Admin: 03/25/17 09:21 Dose: 60 mg Phenylephrine HCl 30 mg/ (Dextrose) 253 mls @ 10.12 mls/hr IV .Q24H PRN; Protocol; 20 MCG/MIN PRN Reason: TITRATE PER MD ORDER Last Titration: 03/24/17 16:00 Dose: Infused Piperacillin Sod/Tazobactam Sod (Zosyn 3.375 Gm Iv Premix) 3.375 gm in 50 mls @ 100 mls/hr IVPB Q6H [facility] Last Admin: 03/25/17 14:47 Dose: 100 mls/hr Magnesium Oxide (Mag-Ox) 400 mg NG DAILY [facility] Last Admin: 03/25/17 15:18 Dose: 400 mg Metoprolol Tartrate (Lopressor) 25 mg PO BID [facility] Last Admin: 03/25/17 17:49 Dose: 25 mg Multivitamins (Hexavitamin) 1 tab PO DAILY [facility] Last Admin: 03/25/17 09:20 Dose: 1 tab Rosuvastatin Calcium (Crestor) 10 mg PO HS [facility] Last Admin: 03/24/17 22:03 Dose: 10 mg Tamsulosin HCl (Flomax) 0.4 mg PO DAILY [facility] Last Admin: 03/25/17 09:21 Dose: 0.4 mg Vitamin A (Vitamin A & D Oint Ud Foilpak) 0.5 ea TOP Q4 [facility] Last Admin: 03/25/17 15:18 Dose: 0.5 ea - Labs Labs: 03/25/17 06:52 03/25/17 06:52 PT 19.5 SECONDS (9.7-12.2) H 03/23/17 14:24 INR 1.7 03/23/17 14:24 APTT 49 SECONDS (21-34) H 03/23/17 14:24 - Constitutional Appears: No Acute Distress - Head Exam Head Exam: ATRAUMATIC, NORMAL INSPECTION, NORMOCEPHALIC - Eye Exam Eye Exam: EOMI, Normal appearance, PERRL Pupil Exam: NORMAL ACCOMODATION, PERRL - Respiratory Exam Respiratory Exam: Clear to Ausculation Bilateral, NORMAL BREATHING PATTERN - Cardiovascular Exam Cardiovascular Exam: REGULAR RHYTHM, +S1, +S2. absent: Murmur - GI/Abdominal Exam GI & Abdominal Exam: Soft, Normal Bowel Sounds. absent: Tenderness - Neurological Exam Neurological Exam: Alert, Awake, Oriented x3 - Psychiatric Exam Psychiatric exam: Normal Affect, Normal Mood Assessment and Plan (1) CA prostate, adenoca Status: Acute (2) Sepsis Status: Acute (3) UTI (urinary tract infection) Status: Acute (4) Acute urinary retention Status: Acute (5) CAD (coronary artery disease) Status: Acute (6) Hyponatremia Status: Acute (7) S/P TURP (status post transurethral resection of prostate) Status: Acute (8) Malnourished Status: Acute (9) S/P orchiectomy Status: Acute (10) PVD (peripheral vascular disease) Status: Acute
[2017-03-26] MEDS: Vitamins A & D Oint UD Foilpak TOP SCH ×6 (00:04→20:00)
[2017-03-26] MEDS: Piperacill/Tazo 3.375gm in Dex 3.375 GM/50 ML BAG IVPB SCH ×4 (02:00→20:00)
[2017-03-26 06:50] LABS: BASO % 0.4 % (0.0-2.0); EOS # 0.1 K/uL (0.0-0.7); EOS % 1.6 % (0.0-4.0); LYMPH % 21.2 % (20.0-40.0); MEAN CELL VOLUME 85.1 fL (80.0-94.0); MEAN CORPUSCULAR HEMOGLOBIN 28.7 pg (27.0-31.0); MEAN CORPUSCULAR HGB CONC 33.8 g/dL (33.0-37.0); MEAN PLATELET VOLUME 8.4 fL (7.2-11.7); MONO # 0.4 K/uL (0.0-0.8); MONO % 8.6 % (0.0-10.0); NEUT # 3.2 K/uL (1.8-7.0); NEUT % 68.2 % (50.0-75.0); NRBC % 0.2 % (0.0-2.0); RBC 3.13 Mil/uL (4.40-5.90); RED CELL DISTRIBUTION WIDTH 15.2 % (11.5-14.5); WHITE BLOOD COUNT 4.8 K/uL (4.8-10.8)
[2017-03-26 07:08] LABS: ALB/GLOB RATIO 0.8 (1.0-2.1); ALT/SGPT 28 U/L (21-72); AST/SGOT 31 U/L (17-59); BLOOD UREA NITROGEN 5 mg/dL (9-20); GFR AFRICAN-AMERICAN > 60; GFR NON-AFRICAN AMERICAN > 60; MAGNESIUM 1.8 mg/dL (1.6-2.3)
--- NOTE | 2017-03-26 08:25 | CP.PCM.PN ---
Subjective - Date & Time of Evaluation Date of Evaluation: 03/26/17 Time of Evaluation: 08:22 - Subjective Subjective: Podiatry Progress Note- Dr. Celeste 81 y/o male seen and evaluated with attending Dr. Celeste at bedside in the ICU for unstageable decubitus ulcerations to left heel and left lateral 5th metatarsal head. Denies any acute events overnight. Dressings clean/dry/intact with multipodus boots presents. Denies N/V/F/D/C/SOB Objective - Vital Signs/Intake and Output Vital Signs (last 24 hours): Temp Pulse Resp BP Pulse Ox 98.4 F 84 20 105/46 L 99 03/26/17 04:00 03/26/17 06:00 03/26/17 06:00 03/26/17 05:55 03/26/17 06:00 Intake and Output: 03/26/17 03/26/17 06:59 18:59 Intake Total 750 Output Total 350 Balance 400 - Medications Medications: Current Medications Acetaminophen (Tylenol 325mg Tab) 650 mg PO Q6H PRN PRN Reason: Pain, moderate (4-7) Last Admin: 03/22/17 22:20 Dose: 650 mg Aspirin (Aspirin Chewable) 81 mg PO DAILY [facility] Last Admin: 03/25/17 09:20 Dose: 81 mg Enoxaparin Sodium (Lovenox) 60 mg SC Q12 [facility] Last Admin: 03/25/17 22:00 Dose: 60 mg Phenylephrine HCl 30 mg/ (Dextrose) 253 mls @ 10.12 mls/hr IV .Q24H PRN; Protocol; 20 MCG/MIN PRN Reason: TITRATE PER MD ORDER Last Titration: 03/24/17 16:00 Dose: Infused Piperacillin Sod/Tazobactam Sod (Zosyn 3.375 Gm Iv Premix) 3.375 gm in 50 mls @ 100 mls/hr IVPB Q6H [facility] Last Admin: 03/26/17 02:00 Dose: 100 mls/hr Magnesium Oxide (Mag-Ox) 400 mg NG DAILY [facility] Last Admin: 03/25/17 15:18 Dose: 400 mg Metoprolol Tartrate (Lopressor) 25 mg PO BID [facility] Last Admin: 03/25/17 17:49 Dose: 25 mg Multivitamins (Hexavitamin) 1 tab PO DAILY [facility] Last Admin: 03/25/17 09:20 Dose: 1 tab Rosuvastatin Calcium (Crestor) 10 mg PO HS [facility] Last Admin: 03/25/17 22:00 Dose: 10 mg Tamsulosin HCl (Flomax) 0.4 mg PO DAILY [facility] Last Admin: 03/25/17 09:21 Dose: 0.4 mg Vitamin A (Vitamin A & D Oint Ud Foilpak) 0.5 ea TOP Q4 [facility] Last Admin: 03/26/17 04:00 Dose: 0.5 ea - Labs Labs: 03/26/17 06:39 03/26/17 06:39 PT 19.5 SECONDS (9.7-12.2) H 03/23/17 14:24 INR 1.7 03/23/17 14:24 APTT 49 SECONDS (21-34) H 03/23/17 14:24 - Constitutional Appears: Well, Non-toxic, No Acute Distress - Extremities Exam Additional comments: Left lower extremity exam Vasc: Non-palpable DP and PT noted bilaterally. 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 No PTB, no fluctuance, no malodor noted. No sign of acute infection is noted. No interdigital maceration noted. Additional unstageable ulceration noted to lateral aspect of 5th metatarsal head measuring 1.2cmx 1.0cm with fibrous base, + probe to bone. < 1CC of purulent drainage noted from wound, no malodor noted. no ascending cellulitis Ortho: Pain on palpation to heel at the site of ulceration. moderate pain induced on palpation to lateral 5th metatarsal head Neuro: Gross sensation intact - Neurological Exam Neurological Exam: Alert, Awake, Oriented x3 - Psychiatric Exam Psychiatric exam: Normal Affect, Normal Mood Assessment and Plan - Assessment and Plan (Free Text) Assessment: 81 y/o male seen at bedside for unstageable decubitus ulcerations to left heel and left lateral 5th metatarsal head Plan: Patient seen and evaluated discussed in detail with attending Dr. Roula Montano, WBC 4.8 Bone scan of left foot (-) for OM L foot xray 03/04/17: No evidence of OM L foot dressed with betadine soaked gauze, DSD, and multipodus boots applied B/L Continue multipodus boots at all times to prevent new/worsening decubitus ulcerations cont. IV abx patient to OR next week pending medical optimization for debridement of bone/ soft tissue of 5th metatarsal once stabilized f/u medical and cardiac optimization Podiatry will continue to follow while patient in house
[2017-03-26] MEDS: Multiple Vitamins Tab PO SCH (09:12)
[2017-03-26] MEDS: Enoxaparin 60 mg Syringe SC SCH ×2 (09:13→21:25)
[2017-03-26] MEDS: Magnesium Oxide 400 mg Tab UD NG SCH ×2 (09:13→17:37)
--- NOTE | 2017-03-26 09:13 | CP.PCM.PN ---
Subjective - Date & Time of Evaluation Date of Evaluation: 03/26/17 Time of Evaluation: 09:10 - Subjective Subjective: sodium unchanged at 127 in positive water balance not including insensible water loss tube feedins in progress plus extra ensure renal function stable awake comfortable answers questions and follow commands ROS No headache,dizziness,nausea vomiting diarrhea,chest or abd pain,nausea diarrhea sparrow in place Objective - Vital Signs/Intake and Output Vital Signs (last 24 hours): Temp Pulse Resp BP Pulse Ox 97.3 F L 84 20 105/46 L 99 03/26/17 08:00 03/26/17 06:00 03/26/17 06:00 03/26/17 05:55 03/26/17 06:00 Intake and Output: 03/26/17 03/26/17 06:59 18:59 Intake Total 750 50 Output Total 350 35 Balance 400 15 - Medications Medications: Current Medications Acetaminophen (Tylenol 325mg Tab) 650 mg PO Q6H PRN PRN Reason: Pain, moderate (4-7) Last Admin: 03/22/17 22:20 Dose: 650 mg Aspirin (Aspirin Chewable) 81 mg PO DAILY [facility] Last Admin: 03/25/17 09:20 Dose: 81 mg Enoxaparin Sodium (Lovenox) 60 mg SC Q12 [facility] Last Admin: 03/25/17 22:00 Dose: 60 mg Phenylephrine HCl 30 mg/ (Dextrose) 253 mls @ 10.12 mls/hr IV .Q24H PRN; Protocol; 20 MCG/MIN PRN Reason: TITRATE PER MD ORDER Last Titration: 03/24/17 16:00 Dose: Infused Piperacillin Sod/Tazobactam Sod (Zosyn 3.375 Gm Iv Premix) 3.375 gm in 50 mls @ 100 mls/hr IVPB Q6H [facility] Last Admin: 03/26/17 02:00 Dose: 100 mls/hr Magnesium Oxide (Mag-Ox) 400 mg NG DAILY [facility] Last Admin: 03/25/17 15:18 Dose: 400 mg Metoprolol Tartrate (Lopressor) 25 mg PO BID [facility] Last Admin: 03/25/17 17:49 Dose: 25 mg Multivitamins (Hexavitamin) 1 tab PO DAILY [facility] Last Admin: 03/25/17 09:20 Dose: 1 tab Rosuvastatin Calcium (Crestor) 10 mg PO HS [facility] Last Admin: 03/25/17 22:00 Dose: 10 mg Tamsulosin HCl (Flomax) 0.4 mg PO DAILY [facility] Last Admin: 03/25/17 09:21 Dose: 0.4 mg Vitamin A (Vitamin A & D Oint Ud Foilpak) 0.5 ea TOP Q4 [facility] Last Admin: 03/26/17 04:00 Dose: 0.5 ea - Labs Labs: 03/26/17 06:39 03/26/17 06:39 PT 19.5 SECONDS (9.7-12.2) H 03/23/17 14:24 INR 1.7 03/23/17 14:24 APTT 49 SECONDS (21-34) H 03/23/17 14:24 - Constitutional Appears: No Acute Distress, Cachectic - ENT Exam ENT Exam: Mucous Membranes Dry - Respiratory Exam Respiratory Exam: Clear to Ausculation Bilateral - Cardiovascular Exam Cardiovascular Exam: REGULAR RHYTHM - GI/Abdominal Exam GI & Abdominal Exam: Soft. absent: Distended, Tenderness - Extremities Exam Extremities Exam: absent: Calf Tenderness, Pedal Edema - Back Exam Back Exam: absent: CVA tenderness (L), CVA tenderness (R) Additional comments: no pre sacral edema - Psychiatric Exam Psychiatric exam: Normal Affect Assessment and Plan (1) Hyponatremia Status: Acute (2) Malnourished Status: Acute (3) S/P TURP (status post transurethral resection of prostate) Status: Acute (4) SIADH (syndrome of inappropriate ADH production) Status: Acute (5) CAD (coronary artery disease) Status: Acute - Assessment and Plan (Free Text) Plan: consider reducing intake follow chems closely
--- NOTE | 2017-03-26 17:17 | PN ---
DATE: FOLLOWUP SUBJECTIVE: The patient is experiencing left foot pain. He denies any chest pain. PHYSICAL EXAMINATION: VITAL SIGNS: Blood pressure 114/56, heart rate 82, temperature 98.7, respirations 27. HEENT: Pale conjunctivae. CHEST: Bilateral rhonchi. HEART: S1 and S2 regular. EXTREMITIES: Dressings applied to the left foot. LABORATORY DATA: Hemoglobin and hematocrit 9 and 26.6. White count and platelet count are within normal limit. SMA-7: Sodium 127, potassium 4.0, chloride 101, CO2 of 23, glucose 95, BUN 5, creatinine 0.4. ASSESSMENT: 1. Paroxysmal atrial fibrillation. 2. Peripheral vascular disease, status post balloon angioplasty to the left posterior tibial artery. 3. Prostatic carcinoma, status post transurethral resection of prostate and left orchiectomy. 4. Coronary artery disease with history of total occlusion in the right coronary artery and critical disease of circumflex artery. 5. Methicillin-resistant Staphylococcus aureus urinary tract infection. 6. Hyponatremia. 7. Anemia. 8. Hypomagnesemia. Today's magnesium level is 1.6. RECOMMENDATIONS: Continue 81 mg once day, Crestor 10 mg once a day. Lopressor is on hold today. Continue therapeutic subcutaneous Lovenox at 60 mg twice a day and Zosyn at 3.375 g intravenously q. 6 hours. Increase magnesium oxide to 400 mg twice a day. Start Percocet 1 tablet q. 6 hours p.r.n. for pain. Theo Cervantes MD
[2017-03-26] MEDS: Oxycodone/Acetaminophen 5/325 mg Tab PO PRN (17:35)
--- NOTE | 2017-03-26 23:53 | CP.PCM.PN ---
Subjective - Date & Time of Evaluation Date of Evaluation: 03/26/17 Time of Evaluation: 19:35 - Subjective Subjective: pt seen and examined pt is weak, malnourished, on antibiotcs, physical therapy, medical managment s/ p turp pt might need peg Objective - Vital Signs/Intake and Output Vital Signs (last 24 hours): Temp Pulse Resp BP Pulse Ox 97.3 F L 80 12 97/41 L 100 03/26/17 20:00 03/26/17 21:00 03/26/17 21:00 03/26/17 19:55 03/26/17 20:00 Intake and Output: 03/26/17 03/27/17 18:59 06:59 Intake Total 650 Output Total 700 Balance -50 - Medications Medications: Current Medications Acetaminophen (Tylenol 325mg Tab) 650 mg PO Q6H PRN PRN Reason: PAIN, MILD 1-3 Aspirin (Aspirin Chewable) 81 mg PO DAILY [facility] Last Admin: 03/26/17 09:12 Dose: 81 mg Enoxaparin Sodium (Lovenox) 60 mg SC Q12 [facility] Last Admin: 03/26/17 21:25 Dose: 60 mg Phenylephrine HCl 30 mg/ (Dextrose) 253 mls @ 10.12 mls/hr IV .Q24H PRN; Protocol; 20 MCG/MIN PRN Reason: TITRATE PER MD ORDER Last Titration: 03/24/17 16:00 Dose: Infused Piperacillin Sod/Tazobactam Sod (Zosyn 3.375 Gm Iv Premix) 3.375 gm in 50 mls @ 100 mls/hr IVPB Q6H [facility] Last Admin: 03/26/17 20:00 Dose: 100 mls/hr Magnesium Oxide (Mag-Ox) 400 mg NG BID [facility] Last Admin: 03/26/17 17:37 Dose: 400 mg Metoprolol Tartrate (Lopressor) 25 mg PO BID [facility] Last Admin: 03/26/17 17:36 Dose: Not Given Multivitamins (Hexavitamin) 1 tab PO DAILY [facility] Last Admin: 03/26/17 09:12 Dose: 1 tab Oxycodone/Acetaminophen (Percocet 5/325 Mg Tab) 1 tab PO Q6H PRN PRN Reason: Pain, moderate (4-7) Stop: 03/29/17 17:14 Last Admin: 03/26/17 17:35 Dose: 1 tab Rosuvastatin Calcium (Crestor) 10 mg PO HS [facility] Last Admin: 03/26/17 21:25 Dose: 10 mg Tamsulosin HCl (Flomax) 0.4 mg PO DAILY [facility] Last Admin: 03/26/17 09:12 Dose: 0.4 mg Vitamin A (Vitamin A & D Oint Ud Foilpak) 0.5 ea TOP Q4 [facility] Last Admin: 03/26/17 20:00 Dose: 0.5 ea - Labs Labs: 03/26/17 06:39 03/26/17 06:39 PT 19.5 SECONDS (9.7-12.2) H 03/23/17 14:24 INR 1.7 03/23/17 14:24 APTT 49 SECONDS (21-34) H 03/23/17 14:24 - Constitutional Appears: No Acute Distress - Head Exam Head Exam: ATRAUMATIC, NORMAL INSPECTION, NORMOCEPHALIC - Eye Exam Eye Exam: EOMI, Normal appearance, PERRL Pupil Exam: NORMAL ACCOMODATION, PERRL - Respiratory Exam Respiratory Exam: Clear to Ausculation Bilateral, NORMAL BREATHING PATTERN - Cardiovascular Exam Cardiovascular Exam: REGULAR RHYTHM, +S1, +S2. absent: Murmur - GI/Abdominal Exam GI & Abdominal Exam: Soft, Normal Bowel Sounds. absent: Tenderness - Rectal Exam Rectal Exam: Deferred Assessment and Plan (1) CA prostate, adenoca Status: Acute (2) Sepsis Status: Acute (3) UTI (urinary tract infection) Status: Acute (4) Acute urinary retention Status: Acute (5) CAD (coronary artery disease) Status: Acute (6) Hyponatremia Status: Acute (7) S/P TURP (status post transurethral resection of prostate) Status: Acute (8) Malnourished Status: Acute (9) S/P orchiectomy Status: Acute (10) PVD (peripheral vascular disease) Status: Acute
[2017-03-27] MEDS: Piperacill/Tazo 3.375gm in Dex 3.375 GM/50 ML BAG IVPB SCH ×4 (01:30→20:16)
[2017-03-27] MEDS: Vitamins A & D Oint UD Foilpak TOP SCH ×6 (05:00→20:18)
--- NOTE | 2017-03-27 10:26 | CP.PCM.PN ---
Subjective - Date & Time of Evaluation Date of Evaluation: 03/27/17 Time of Evaluation: 11:03 - Subjective Subjective: Podiatry Progress Note- Dr. Celeste 81 y/o male seen and evaluated at bedside in the ICU for unstageable decubitus ulcerations to left heel and left lateral 5th metatarsal head. Denies any acute events overnight. Patient appears to be resting comfortably in his bed with no acute distress. Dressings clean/dry/intact with multipodus boots presents. Denies N/V/F/D/C/SOB Objective - Vital Signs/Intake and Output Vital Signs (last 24 hours): Temp Pulse Resp BP Pulse Ox 98.4 F 109 H 36 H 139/66 96 03/27/17 04:00 03/27/17 07:00 03/27/17 07:00 03/27/17 05:55 03/27/17 07:00 Intake and Output: 03/27/17 03/27/17 06:59 18:59 Intake Total 700 Output Total 650 Balance 50 - Medications Medications: Current Medications Acetaminophen (Tylenol 325mg Tab) 650 mg PO Q6H PRN PRN Reason: PAIN, MILD 1-3 Aspirin (Aspirin Chewable) 81 mg PO DAILY [facility] Last Admin: 03/26/17 09:12 Dose: 81 mg Enoxaparin Sodium (Lovenox) 60 mg SC Q12 [facility] Last Admin: 03/26/17 21:25 Dose: 60 mg Phenylephrine HCl 30 mg/ (Dextrose) 253 mls @ 10.12 mls/hr IV .Q24H PRN; Protocol; 20 MCG/MIN PRN Reason: TITRATE PER MD ORDER Last Titration: 03/24/17 16:00 Dose: Infused Piperacillin Sod/Tazobactam Sod (Zosyn 3.375 Gm Iv Premix) 3.375 gm in 50 mls @ 100 mls/hr IVPB Q6H [facility] Last Admin: 03/27/17 01:30 Dose: 100 mls/hr Magnesium Oxide (Mag-Ox) 400 mg NG BID [facility] Last Admin: 03/26/17 17:37 Dose: 400 mg Metoprolol Tartrate (Lopressor) 25 mg PO BID [facility] Last Admin: 03/26/17 17:36 Dose: Not Given Multivitamins (Hexavitamin) 1 tab PO DAILY [facility] Last Admin: 03/26/17 09:12 Dose: 1 tab Oxycodone/Acetaminophen (Percocet 5/325 Mg Tab) 1 tab PO Q6H PRN PRN Reason: Pain, moderate (4-7) Stop: 03/29/17 17:14 Last Admin: 03/26/17 17:35 Dose: 1 tab Rosuvastatin Calcium (Crestor) 10 mg PO HS [facility] Last Admin: 03/26/17 21:25 Dose: 10 mg Tamsulosin HCl (Flomax) 0.4 mg PO DAILY [facility] Last Admin: 03/26/17 09:12 Dose: 0.4 mg Vitamin A (Vitamin A & D Oint Ud Foilpak) 0.5 ea TOP Q4 [facility] Last Admin: 03/27/17 05:00 Dose: 0.5 ea - Labs Labs: 03/26/17 06:39 03/26/17 06:39 PT 19.5 SECONDS (9.7-12.2) H 03/23/17 14:24 INR 1.7 03/23/17 14:24 APTT 49 SECONDS (21-34) H 03/23/17 14:24 - Constitutional Appears: Well, Non-toxic, No Acute Distress - Extremities Exam Additional comments: Left lower extremity exam Vasc: Non-palpable DP and PT noted bilaterally. 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 No PTB, no fluctuance, no malodor noted. No sign of acute infection is noted. No interdigital maceration noted. Additional unstageable ulceration noted to lateral aspect of 5th metatarsal head measuring 1.2cmx 1.0cm with fibrous base, + probe to bone. < 1CC of purulent drainage noted from wound, no malodor noted. no ascending cellulitis Ortho: Pain on palpation to heel at the site of ulceration. moderate pain induced on palpation to lateral 5th metatarsal head Neuro: Gross sensation intact - Neurological Exam Neurological Exam: Alert, Awake, Oriented x3 - Psychiatric Exam Psychiatric exam: Normal Affect, Normal Mood Assessment and Plan - Assessment and Plan (Free Text) Assessment: 81 y/o male seen at bedside for unstageable decubitus ulcerations to left heel and left lateral 5th metatarsal head Plan: Patient seen and evaluated discussed in detail with attending Dr. Celeste Afebrile, WBC 4.8 Bone scan of left foot (-) for OM L foot xray 03/04/17: No evidence of OM L foot dressed with betadine soaked gauze, DSD, and multipodus boots applied B/L Continue multipodus boots at all times to prevent new/worsening decubitus ulcerations cont. IV abx patient to OR next week pending medical optimization for debridement of bone/ soft tissue of 5th metatarsal once stabilized f/u medical and cardiac optimization Podiatry will continue to follow while patient in house
[2017-03-27] MEDS: Multiple Vitamins Tab PO SCH (10:30)
[2017-03-27] MEDS: Magnesium Oxide 400 mg Tab UD NG SCH ×2 (10:30→17:54)
[2017-03-27] MEDS: Oxycodone/Acetaminophen 5/325 mg Tab PO PRN ×2 (12:45→18:04)
[2017-03-27] MEDS: Enoxaparin 60 mg Syringe SC SCH (13:30)
--- NOTE | 2017-03-27 22:26 | CP.PCM.PN ---
Subjective - Date & Time of Evaluation Date of Evaluation: 03/27/17 Time of Evaluation: 19:00 - Subjective Subjective: Patient appears to be resting comfortably in his bed with no acute distress. Dressings clean/dry/intact with multipodus boots presents. Denies N/V/F/D/C/SOB Objective - Vital Signs/Intake and Output Vital Signs (last 24 hours): Temp Pulse Resp BP Pulse Ox 98.4 F 97 H 32 H 100/44 L 98 03/27/17 15:31 03/27/17 17:00 03/27/17 17:00 03/27/17 15:55 03/27/17 09:00 Intake and Output: 03/27/17 03/28/17 18:59 06:59 Intake Total 0 Output Total 700 125 Balance -700 -125 - Medications Medications: Current Medications Acetaminophen (Tylenol 325mg Tab) 650 mg PO Q6H PRN PRN Reason: PAIN, MILD 1-3 Aspirin (Aspirin Chewable) 81 mg PO DAILY [facility] Last Admin: 03/27/17 10:30 Dose: 81 mg Enoxaparin Sodium (Lovenox) 60 mg SC Q12 [facility] Last Admin: 03/27/17 13:30 Dose: 60 mg Phenylephrine HCl 30 mg/ (Dextrose) 253 mls @ 10.12 mls/hr IV .Q24H PRN; Protocol; 20 MCG/MIN PRN Reason: TITRATE PER MD ORDER Last Titration: 03/24/17 16:00 Dose: Infused Piperacillin Sod/Tazobactam Sod (Zosyn 3.375 Gm Iv Premix) 3.375 gm in 50 mls @ 100 mls/hr IVPB Q6H [facility] Last Admin: 03/27/17 20:16 Dose: 100 mls/hr Magnesium Oxide (Mag-Ox) 400 mg NG BID [facility] Last Admin: 03/27/17 17:54 Dose: 400 mg Metoprolol Tartrate (Lopressor) 25 mg PO BID [facility] Multivitamins (Hexavitamin) 1 tab PO DAILY [facility] Last Admin: 03/27/17 10:30 Dose: 1 tab Oxycodone/Acetaminophen (Percocet 5/325 Mg Tab) 1 tab PO Q6H PRN PRN Reason: Pain, moderate (4-7) Stop: 03/29/17 17:14 Last Admin: 03/27/17 18:04 Dose: 1 tab Rosuvastatin Calcium (Crestor) 10 mg PO HS [facility] Last Admin: 03/27/17 22:23 Dose: 10 mg Tamsulosin HCl (Flomax) 0.4 mg PO DAILY [facility] Last Admin: 03/27/17 10:30 Dose: 0.4 mg Vitamin A (Vitamin A & D Oint Ud Foilpak) 0.5 ea TOP Q4 [facility] Last Admin: 03/27/17 20:18 Dose: 0.5 ea - Labs Labs: 03/26/17 06:39 03/26/17 06:39 PT 19.5 SECONDS (9.7-12.2) H 03/23/17 14:24 INR 1.7 03/23/17 14:24 APTT 49 SECONDS (21-34) H 03/23/17 14:24 Assessment and Plan (1) CA prostate, adenoca Status: Acute (2) Sepsis Status: Acute (3) UTI (urinary tract infection) Status: Acute (4) Acute urinary retention Status: Acute (5) CAD (coronary artery disease) Status: Acute (6) Hyponatremia Status: Acute (7) S/P TURP (status post transurethral resection of prostate) Status: Acute (8) Malnourished Status: Acute (9) S/P orchiectomy Status: Acute (10) PVD (peripheral vascular disease) Status: Acute
--- NOTE | 2017-03-27 22:28 | PN ---
DATE: SUBJECTIVE: The patient denies any chest pain. He is currently in sinus rhythm. No reported hypotension. PHYSICAL EXAMINATION: VITAL SIGNS: Blood pressure 128/59, heart rate 109, temperature 98.7, respirations 26. HEENT: Pale conjunctivae. CHEST: Bilateral rhonchi. HEART: S1 and S2 regular. EXTREMITIES: Dressing is applied to the left foot. ASSESSMENT AND PLAN: 1. Paroxysmal atrial fibrillation. 2. History of coronary artery disease. 3. Prostatic carcinoma, status post transurethral resection of prostate and bilateral orchiectomy. 4. Methicillin-resistant Staphylococcus aureus urinary tract infection. 5. Hyponatremia and hypomagnesemia. 6. Anemia. 7. Peripheral vascular disease, status post balloon angioplasty to the left posterior tibial artery. RECOMMENDATIONS: Continue aspirin 81 mg once day, Lopressor 25 mg twice a day, therapeutic subcutaneous Lovenox at 60 mg twice a day, and Zosyn at 3.375 g intravenously q. 6 hours. Long-term anticoagulation may not be justified and upon discharge, patient will be started on dual-antiplatelet therapy, i.e. aspirin and Plavix. Theo Cervantes MD
[2017-03-28] MEDS: Vitamins A & D Oint UD Foilpak TOP SCH ×6 (00:04→21:51)
--- NOTE | 2017-03-28 00:27 | CP.PCM.PCO ---
Physician Communication Note - Physician Communication Note Physician Communication Note: asked to replace NGT. Indication unclear so did not. Swallow eval in AM??
[2017-03-28] MEDS: Enoxaparin 60 mg Syringe SC SCH ×3 (00:46→21:54)
[2017-03-28] MEDS: Piperacill/Tazo 3.375gm in Dex 3.375 GM/50 ML BAG IVPB SCH ×4 (03:18→21:00)
[2017-03-28] MEDS: Multiple Vitamins Tab PO SCH (09:44)
[2017-03-28] MEDS: Magnesium Oxide 400 mg Tab UD NG SCH ×2 (09:53→18:44)
--- NOTE | 2017-03-28 12:24 | CP.PCM.PN ---
Subjective - Date & Time of Evaluation Date of Evaluation: 03/28/17 Time of Evaluation: 12:22 - Subjective Subjective: Alert; NAD Does not want NGT Na- 127- has been stable on fluid restriction Phos low- needs repletion no new complaint Objective - Vital Signs/Intake and Output Vital Signs (last 24 hours): Temp Pulse Resp BP Pulse Ox 97.9 F 89 18 102/54 L 96 03/28/17 09:11 03/28/17 09:11 03/28/17 09:11 03/28/17 09:52 03/28/17 09:11 Intake and Output: 03/28/17 03/28/17 06:59 18:59 Intake Total 425 Output Total 450 Balance -25 - Medications Medications: Current Medications Acetaminophen (Tylenol 325mg Tab) 650 mg PO Q6H PRN PRN Reason: PAIN, MILD 1-3 Aspirin (Aspirin Chewable) 81 mg PO DAILY [facility] Last Admin: 03/28/17 09:43 Dose: Not Given Enoxaparin Sodium (Lovenox) 60 mg SC Q12 [facility] Last Admin: 03/28/17 09:52 Dose: Not Given Phenylephrine HCl 30 mg/ (Dextrose) 253 mls @ 10.12 mls/hr IV .Q24H PRN; Protocol; 20 MCG/MIN PRN Reason: TITRATE PER MD ORDER Last Titration: 03/24/17 16:00 Dose: Infused Piperacillin Sod/Tazobactam Sod (Zosyn 3.375 Gm Iv Premix) 3.375 gm in 50 mls @ 100 mls/hr IVPB Q6H [facility] Last Admin: 03/28/17 08:41 Dose: 100 mls/hr Magnesium Oxide (Mag-Ox) 400 mg NG BID [facility] Last Admin: 03/28/17 09:53 Dose: Not Given Metoprolol Tartrate (Lopressor) 25 mg PO BID [facility] Last Admin: 03/28/17 09:52 Dose: Not Given Multivitamins (Hexavitamin) 1 tab PO DAILY [facility] Last Admin: 03/28/17 09:44 Dose: Not Given Oxycodone/Acetaminophen (Percocet 5/325 Mg Tab) 1 tab PO Q6H PRN PRN Reason: Pain, moderate (4-7) Stop: 03/29/17 17:14 Last Admin: 03/27/17 18:04 Dose: 1 tab Rosuvastatin Calcium (Crestor) 10 mg PO HS [facility] Last Admin: 03/27/17 22:23 Dose: 10 mg Tamsulosin HCl (Flomax) 0.4 mg PO DAILY [facility] Last Admin: 03/28/17 09:43 Dose: Not Given Vitamin A (Vitamin A & D Oint Ud Foilpak) 0.5 ea TOP Q4 [facility] Last Admin: 03/28/17 08:42 Dose: 0.5 ea - Labs Labs: 03/26/17 06:39 03/26/17 06:39 PT 19.5 SECONDS (9.7-12.2) H 03/23/17 14:24 INR 1.7 03/23/17 14:24 APTT 49 SECONDS (21-34) H 03/23/17 14:24 - Constitutional Appears: No Acute Distress, Chronically Ill - Head Exam Head Exam: ATRAUMATIC, NORMAL INSPECTION - Eye Exam Eye Exam: EOMI. absent: Normal appearance - Neck Exam Neck Exam: Normal Inspection. absent: Tenderness - Respiratory Exam Respiratory Exam: Clear to Ausculation Bilateral, NORMAL BREATHING PATTERN - Cardiovascular Exam Cardiovascular Exam: REGULAR RHYTHM, +S1 - GI/Abdominal Exam GI & Abdominal Exam: Soft. absent: Tenderness - Extremities Exam Extremities Exam: Normal Inspection. absent: Tenderness - Neurological Exam Neurological Exam: Awake, CN II-XII Intact - Skin Skin Exam: Dry, Warm Assessment and Plan (1) SIADH (syndrome of inappropriate ADH production) Status: Acute (2) Hyponatremia Status: Acute (3) Elevated PSA Status: Acute (4) HTN (hypertension) Status: Acute (5) UTI (urinary tract infection) due to urinary indwelling Cummings catheter Status: Acute (6) CA prostate, adenoca Status: Acute - Assessment and Plan (Free Text) Plan: Replete phos monitor na levels
--- NOTE | 2017-03-28 15:06 | PN ---
DATE: SUBJECTIVE: The patient's NG tube was removed. The patient denies any chest pain or foot pain. He claims to be able to feed himself. PHYSICAL EXAMINATION: VITAL SIGNS: Blood pressure 102/54, heart rate 89, temperature 97.9, respirations 18. HEENT: Normocephalic. CHEST: Bilateral rhonchi. HEART: S1 and S2, regular. EXTREMITIES: Dressings applied to the left foot. ASSESSMENT: 1. Paroxysmal atrial fibrillation. 2. Peripheral vascular disease, status post balloon angioplasty to left posterior tibial artery. 3. Prostatic carcinoma. 4. Hyponatremia and hypomagnesemia. RECOMMENDATIONS: Continue Neutra-Phos 1 pack twice a day. Continue IV Zosyn 3.375 g intravenously q. 6 hours. Aspirin was not given today. Resume subcutaneous Lovenox if there is no contraindication. Theo Cervantes MD
--- NOTE | 2017-03-28 15:27 | CP.PCM.CON ---
History of Present Illness - History of Present Illness History of Present Illness: Palliative consult Patient is admitted from home with difficulties voiding and dark urine. Patient denied fever, nausea or vomiting. Patient has known Hx of prostate cancer and Pelvis US on admission suggested enlarged prostate. patient was also found to have a MRSA in the urine. On 03/22/17 patient underwent B/L orchectomy with Doctor Amaris. PMH: COPD, Left hip fx, adenoma of prostate, lives at home alone Soc. Hx: single Fam. Hx: states parents natural , uncle with kidney cancer Review of Systems - Constitutional Constitutional: Weakness - EENT Eyes: absent: As Per HPI, Blind Spots, Blurred Vision, Change in Vision, Decreased Night Vision, Diplopia, Discharge, Dry Eye, Exophthalmos, Floaters, Irritation, Itchy Eyes, Loss of Peripheral Vision, Pain, Photophobia, Requires Corrective Lenses, Sees Flashes, Spots in Vision, Tunnel Vision, Other Visual Disturbances, Loss of Vision, Other Ears: Decreased Hearing Nose/Mouth/Throat: Dry Mouth - Cardiovascular Cardiovascular: absent: As Per HPI, Acrocyanosis, Chest Pain, Chest Pain at Rest , Chest Pain with Activity, Claudication, Diaphoresis, Dyspnea, Dyspnea on Exertion, Edema, Irregular Heart Rhythm, Pain Radiating to Arm/Neck/Jaw, Leg Edema, Leg Ulcers, Lightheadedness, Orthopnea, Palpitations, Paroxysmal Nocturnal Dyspnea, Pedal Edema, Radiating Pain, Rapid Heart Rate, Slow Heart Rate, Syncope, Other - Respiratory Respiratory: Cough, Dyspnea on Exertion - Gastrointestinal Gastrointestinal: absent: As Per HPI, Abdominal Pain, Belching, Bloating, Change in Bowel Habits, Change in Stool Character, Coffee Ground Emesis, Constipation, Cramping, Diarrhea, Dyspepsia, Dysphagia, Early Satiety, Excessive Flatus, Fecal Incontinence, Heartburn, Hematemesis, Hematochezia, Loose Stools, Melena, Nausea, Odynophagia, Temesmus, Vomiting, Other - Genitourinary Genitourinary: Urinary Incontinence - Musculoskeletal Musculoskeletal: Muscle Weakness - Integumentary Integumentary: absent: As Per HPI, Acne, Alopecia, Bleeding Lesions, Change in Hair, Change in Nails, Change in Pigmentation, Changing Lesions, Dry Skin, Erythema, Furuncle, Hirsutism, Lesions, New Lesions, Non-Healing Lesions, Photosensitivity, Pruritus, Rash, Skin Pain, Skin Ulcer, Sores, Striae, Swelling , Unusual Bruising, Wounds, Jaundice, Other - Neurological Neurological: absent: As Per HPI, Abnormal Gait, Abnormal Hearing, Abnormal Movements, Abnormal Speech, Behavioral Changes, Burning Sensations, Confusion, Convulsions, Disequilibrium, Dizziness, Numbness, Focal Weakness, Frequent Falls , Headaches, Lack of Coordination, Loss of Vision, Memory Loss, Paresthesias, Radicular Pain, Restless Legs, Sensory Deficit, Syncope, Tingling, Tremor, Vertigo, Weakness, Other Visual Disturbances, Other - Psychiatric Psychiatric: absent: As Per HPI, Abnormal Sleep Pattern, Anhedonia, Anxiety, Auditory Hallucinations, Behavioral Changes, Change in Appetite, Change in Libido, Confusion, Depression, Difficulty Concentrating, Hallucinations, Homicidal Ideation, Hopelessness, Irritability, Memory Loss, Mood Swings, Panic Attacks, Paranoia, Suicidal Ideation, Visual Hallucinations, Tactile Hallucinations, Other - Endocrine Endocrine: absent: As Per HPI, Change in Body Appearance, Change in Libido, Cold Intolorance, Deepening of Voice, Excessive Sweating, Fatigue, Flushing, Heat Intolorance, Increase in Ring/Shoe/Hat Size, Palpitations, Polydipsia, Polyphagia, Polyuria, Other - Hematologic/Lymphatic Hematologic: absent: As Per HPI, Easy Bleeding, Easy Bruising, Lymphadenopathy, Other Past Patient History - Infectious Disease Hx of Infectious Diseases: None - Past Medical History & Family History Past Medical History?: No - Past Social History Smoking Status: Light Smoker < 10 Cigarettes Daily Chewing Tobacco Use: No Cigar Use: No Alcohol: None Drugs: Denies Home Situation {Lives}: [facility] - CARDIAC Hx Hypertension: Yes - PULMONARY Hx Chronic Obstructive Pulmonary Disease (COPD): Yes - NEUROLOGICAL HX Cerebrovascular Accident: Yes (7 YEARS AGO) - HEENT Hx HEENT Problems: No - RENAL Hx Chronic Kidney Disease: No - ENDOCRINE/METABOLIC Hx Endocrine Disorders: No - HEMATOLOGICAL/ONCOLOGICAL Hx Blood Disorders: No Hx Blood Transfusions: Yes Hx Blood Transfusion Reaction: No - INTEGUMENTARY Hx Dermatological Problems: No - MUSCULOSKELETAL/RHEUMATOLOGICAL Hx Falls: Yes - GASTROINTESTINAL Hx Gastrointestinal Disorders: No - GENITOURINARY/GYNECOLOGICAL Hx Genitourinary Disorders: Yes Hx Prostate Cancer: Yes Other/Comment: uropathy, UTI - PSYCHIATRIC Hx Substance Use: No - SURGICAL HISTORY Hx Surgeries: No Hx Cardiac Catheterization: Yes (x2) Other/Comment: hx of prostate biopsy 11/2016. lt.hip surgery w/pins - ANESTHESIA Hx Anesthesia: Yes Hx Anesthesia Reactions: No Hx Malignant Hyperthermia: No Meds Allergies/Adverse Reactions: Allergies Allergy/AdvReac Type Severity Reaction Status Date / Time No Known Allergies Allergy Verified 12/30/16 11:26 - Medications Medications: Current Medications Acetaminophen (Tylenol 325mg Tab) 650 mg PO Q6H PRN PRN Reason: PAIN, MILD 1-3 Aspirin (Aspirin Chewable) 81 mg PO DAILY [facility] Last Admin: 03/28/17 09:43 Dose: Not Given Enoxaparin Sodium (Lovenox) 60 mg SC Q12 [facility] Last Admin: 03/28/17 09:52 Dose: Not Given Phenylephrine HCl 30 mg/ (Dextrose) 253 mls @ 10.12 mls/hr IV .Q24H PRN; Protocol; 20 MCG/MIN PRN Reason: TITRATE PER MD ORDER Last Titration: 03/24/17 16:00 Dose: Infused Piperacillin Sod/Tazobactam Sod (Zosyn 3.375 Gm Iv Premix) 3.375 gm in 50 mls @ 100 mls/hr IVPB Q6H [facility] Last Admin: 03/28/17 14:18 Dose: 100 mls/hr Magnesium Oxide (Mag-Ox) 400 mg NG BID [facility] Last Admin: 03/28/17 09:53 Dose: Not Given Metoprolol Tartrate (Lopressor) 25 mg PO BID [facility] Last Admin: 03/28/17 09:52 Dose: Not Given Multivitamins (Hexavitamin) 1 tab PO DAILY [facility] Last Admin: 03/28/17 09:44 Dose: Not Given Oxycodone/Acetaminophen (Percocet 5/325 Mg Tab) 1 tab PO Q6H PRN PRN Reason: Pain, moderate (4-7) Stop: 03/29/17 17:14 Last Admin: 03/27/17 18:04 Dose: 1 tab Potassium Phos/Sodium Phos (Neutra-Phos) 1 pkt PO BID [facility] Rosuvastatin Calcium (Crestor) 10 mg PO [facility] Last Admin: 03/27/17 22:23 Dose: 10 mg Tamsulosin HCl (Flomax) 0.4 mg PO DAILY [facility] Last Admin: 03/28/17 09:43 Dose: Not Given Vitamin A (Vitamin A & D Oint Ud Foilpak) 0.5 ea TOP Q4 [facility] Last Admin: 03/28/17 12:43 Dose: 0.5 ea Physical Exam - Constitutional Appears: No Acute Distress, Chronically Ill - Head Exam Head Exam: ATRAUMATIC, NORMAL INSPECTION, NORMOCEPHALIC - Eye Exam Eye Exam: EOMI, Normal appearance, PERRL Pupil Exam: NORMAL ACCOMODATION, PERRL - ENT Exam ENT Exam: Mucous Membranes Dry - Neck Exam Neck exam: Positive for: Normal Inspection - Respiratory Exam Respiratory Exam: Decreased Breath Sounds, Rhonchi, NORMAL BREATHING PATTERN - Cardiovascular Exam Cardiovascular Exam: REGULAR RHYTHM - GI/Abdominal Exam GI & Abdominal Exam: Normal Bowel Sounds, Soft - Rectal Exam Rectal Exam: Deferred - Exam Additional comments: S/P Orchectomy - Extremities Exam Extremities exam: Positive for: normal inspection - Back Exam Back exam: NORMAL INSPECTION - Neurological Exam Neurological exam: Alert - Psychiatric Exam Psychiatric exam: Normal Affect, Normal Mood - Skin Skin Exam: Dry Results - Vital Signs Recent Vital Signs: Last Vital Signs Temp 97.9 F 03/28/17 09:11 Pulse 89 03/28/17 09:11 Resp 18 03/28/17 09:11 BP 102/54 L 03/28/17 09:52 Pulse Ox 96 03/28/17 09:11 - Labs Result Diagrams: 03/26/17 06:39 03/26/17 06:39 Assessment & Plan - Assessment and Plan (Free Text) Assessment: Palliative consult Code status Full Code, no Advance Directive on the chart, PPS 10% I reviewed medical records, all diagnostic studies, examined and interviewed patient in the bed. Patient was seen and examined in bed, looking chronically ill. Patient knew he was at the hospital, and knew his daughter lives in [place] and was aware of his condition. Per pastoral notes, patient has a two daughter as stated by Talisha [place], but they are not involved in patient's care nor in touch with him. Skin look pale, Hb 9.0. Breath sounds diminished, there is a moist productive cough. Oral mucousa is dry. patient is asking for [place] or 7 Up. Abdomen flat and soft. There is a large bulky dressing to scrotal area. Denies pain. Cummings cath at bed side, urine clear. BP 102/54, HR 88, O2Sat 96%. per nurse Amaya, patient was hypotensive post procedure and was bolused with IV fluids. WBC 4.8, Hb 9.0, Na 127, Alb 20., BUN 5.0, Machine Welder 0.4 I discussed patient's condition with patient . Besides the hearing loss, patient was very alert, for good part of discussion and my initial impression was that he was able to discuss hi goals of care. After discussing his condition with nurse Amaya, I learned about patient's intermittent confusion and him having a POA who advocates for him. In reviewing the chart X 2 no documents supporting POA status and Advance Directive were found. In phone conversation with Talisha Zacariastorsten who introduced her self as a POA, I learned that she faxed over those documents to Text[employer] Worker Sue. However , I was not able to find those documents . Call placed to Text[employer] Worker Jennifer for further discussion . The Copies of POLST,Advance Directive and POA Documents found and copies printed out. Impression * Chronically ill patient S/p D/l orchectomy * Intermittent confusion * Limited mobility due to surgical site * NPO, complains of thirst * Hypoalbuminemia * Hyponatremia most likely due to dehydration * Suggestions * Oral care, offer ice chips as tolerated * Aspiration precautions * Correct low Alb level, * IVF for hydration. *
[2017-03-28] MEDS: Potassium & Sodium Phosphate PO SCH (21:52)
--- NOTE | 2017-03-28 23:14 | CP.PCM.PN ---
Subjective - Date & Time of Evaluation Date of Evaluation: 03/28/17 Time of Evaluation: 18:50 - Subjective Subjective: Pt seen and examined, less short of breath, less coughing, feels better Objective - Vital Signs/Intake and Output Vital Signs (last 24 hours): Temp Pulse Resp BP Pulse Ox 98.0 F 79 20 104/64 98 03/28/17 15:27 03/28/17 15:30 03/28/17 15:27 03/28/17 18:46 03/28/17 15:27 Intake and Output: 03/28/17 03/29/17 18:59 06:59 Intake Total 25 Balance 25 - Medications Medications: Current Medications Acetaminophen (Tylenol 325mg Tab) 650 mg PO Q6H PRN PRN Reason: PAIN, MILD 1-3 Aspirin (Aspirin Chewable) 81 mg PO DAILY [facility] Last Admin: 03/28/17 09:43 Dose: Not Given Enoxaparin Sodium (Lovenox) 60 mg SC Q12 [facility] Last Admin: 03/28/17 21:54 Dose: 60 mg Phenylephrine HCl 30 mg/ (Dextrose) 253 mls @ 10.12 mls/hr IV .Q24H PRN; Protocol; 20 MCG/MIN PRN Reason: TITRATE PER MD ORDER Last Titration: 03/24/17 16:00 Dose: Infused Piperacillin Sod/Tazobactam Sod (Zosyn 3.375 Gm Iv Premix) 3.375 gm in 50 mls @ 100 mls/hr IVPB Q6H [facility] Last Admin: 03/28/17 21:00 Dose: 100 mls/hr Magnesium Oxide (Mag-Ox) 400 mg NG BID [facility] Last Admin: 03/28/17 18:44 Dose: 400 mg Metoprolol Tartrate (Lopressor) 25 mg PO BID [facility] Last Admin: 03/28/17 18:46 Dose: 25 mg Multivitamins (Hexavitamin) 1 tab PO DAILY [facility] Last Admin: 03/28/17 09:44 Dose: Not Given Oxycodone/Acetaminophen (Percocet 5/325 Mg Tab) 1 tab PO Q6H PRN PRN Reason: Pain, moderate (4-7) Stop: 03/29/17 17:14 Last Admin: 03/27/17 18:04 Dose: 1 tab Potassium Phos/Sodium Phos (Neutra-Phos) 1 pkt PO BID [facility] Last Admin: 03/28/17 21:52 Dose: 1 pkt Rosuvastatin Calcium (Crestor) 10 mg PO HS [facility] Last Admin: 03/28/17 21:54 Dose: 10 mg Tamsulosin HCl (Flomax) 0.4 mg PO DAILY [facility] Last Admin: 03/28/17 09:43 Dose: Not Given Vitamin A (Vitamin A & D Oint Ud Foilpak) 0.5 ea TOP Q4 [facility] Last Admin: 03/28/17 21:51 Dose: 0.5 ea - Labs Labs: 03/26/17 06:39 03/26/17 06:39 PT 19.5 SECONDS (9.7-12.2) H 03/23/17 14:24 INR 1.7 03/23/17 14:24 APTT 49 SECONDS (21-34) H 03/23/17 14:24 Assessment and Plan (1) CA prostate, adenoca Status: Acute (2) Sepsis Status: Acute (3) UTI (urinary tract infection) Status: Acute (4) Acute urinary retention Status: Acute (5) CAD (coronary artery disease) Status: Acute (6) Hyponatremia Status: Acute (7) S/P TURP (status post transurethral resection of prostate) Status: Acute (8) Malnourished Status: Acute (9) S/P orchiectomy Status: Acute (10) PVD (peripheral vascular disease) Status: Acute
[2017-03-29] MEDS: Vitamins A & D Oint UD Foilpak TOP SCH ×5 (00:30→22:43)
[2017-03-29] MEDS: Piperacill/Tazo 3.375gm in Dex 3.375 GM/50 ML BAG IVPB SCH ×2 (01:34→08:30)
[2017-03-29 02:55] LABS: ABG ALLEN TEST POS; ARTERIAL BLOOD GAS HCO3 25.7 mmol/L (21-28); ARTERIAL BLOOD GAS HEMOGLOBIN 7.9 g/dL (11.7-17.4); ARTERIAL BLOOD GAS O2 SAT 100.2 % (95-98); ARTERIAL BLOOD GAS PCO2 29 mm/Hg (35-45); ARTERIAL BLOOD GAS PH 7.52 (7.35-7.45); ARTERIAL BLOOD GAS PO2 100 mm/Hg (80-100); ARTERIAL BLOOD GAS TCO2 24.6 mmol/L (22-28)
--- NOTE | 2017-03-29 06:51 | CP.PCM.PN ---
Subjective - Date & Time of Evaluation Date of Evaluation: 03/29/17 Time of Evaluation: 05:00 - Subjective Subjective: Evaluated patient for SOB, hypoxia needing NRB, RR about 30/min, p 130/min, 130/ 60, afeb, spo2 100% on NRB, po2 on abg 100, coarse crackles in the airway. Patient's cough not effective most of the time, tried to suction through left nostril as right nostril had blood abilio, and orally with thick mucous suctioned out, but coarse crackling still continued. CXR shows right side basal volume loss, suspected infiltrate/pna/atelectesis. Patient on 100% fio2 in mild to moderate distress. Code status is DNR/DNI Attempts made to call the POA x2 times and left message, mean while NPO, aspiration precautions, added vancomycin, inhaled steroids, 1:1 to keep o2 on. POA Talisha called back this am, explained the above situation, also unlikely to resolve without being intubated, and probably will get worse that he would be in more distress. POA re-conveyed that she knows him for years and he would not want to be on having aggressive measure and would like to be comfortable. We discussed that POA will come around 9 am in the morning and then make decision about comfort care, will inform her if anything worsens, continue current measures. PMD will be notified. Objective - Vital Signs/Intake and Output Vital Signs (last 24 hours): Temp Pulse Resp BP Pulse Ox 96.9 F L 127 H 25 H 98/57 L 98 03/29/17 05:00 03/29/17 05:00 03/29/17 05:00 03/29/17 05:00 03/29/17 05:00 Intake and Output: 03/28/17 03/29/17 18:59 06:59 Intake Total 25 Output Total 175 Balance 25 -175 - Medications Medications: Current Medications Acetaminophen (Tylenol 325mg Tab) 650 mg PO Q6H PRN PRN Reason: PAIN, MILD 1-3 Aspirin (Aspirin Chewable) 81 mg PO DAILY [facility] Last Admin: 03/28/17 09:43 Dose: Not Given Budesonide (Pulmicort Respules) 0.5 mg INH RQ12 [facility] Enoxaparin Sodium (Lovenox) 60 mg SC Q12 [facility] Last Admin: 03/28/17 21:54 Dose: 60 mg Phenylephrine HCl 30 mg/ (Dextrose) 253 mls @ 10.12 mls/hr IV .Q24H PRN; Protocol; 20 MCG/MIN PRN Reason: TITRATE PER MD ORDER Last Titration: 03/24/17 16:00 Dose: Infused Piperacillin Sod/Tazobactam Sod (Zosyn 3.375 Gm Iv Premix) 3.375 gm in 50 mls @ 100 mls/hr IVPB Q6H [facility] Last Admin: 03/29/17 01:34 Dose: 100 mls/hr Vancomycin/Sodium Chloride (Vancomycin 1 Gm/Ns 200 Ml) 1 gm in 200 mls @ 167 mls/hr IVPB DAILY [facility] Stop: 04/03/17 10:01 Magnesium Oxide (Mag-Ox) 400 mg NG BID [facility] Last Admin: 03/28/17 18:44 Dose: 400 mg Metoprolol Tartrate (Lopressor) 25 mg PO BID [facility] Last Admin: 03/28/17 18:46 Dose: 25 mg Multivitamins (Hexavitamin) 1 tab PO DAILY [facility] Last Admin: 03/28/17 09:44 Dose: Not Given Oxycodone/Acetaminophen (Percocet 5/325 Mg Tab) 1 tab PO Q6H PRN PRN Reason: Pain, moderate (4-7) Stop: 03/29/17 17:14 Last Admin: 03/27/17 18:04 Dose: 1 tab Potassium Phos/Sodium Phos (Neutra-Phos) 1 pkt PO BID [facility] Last Admin: 03/28/17 21:52 Dose: 1 pkt Rosuvastatin Calcium (Crestor) 10 mg PO HS [facility] Last Admin: 03/28/17 21:54 Dose: 10 mg Tamsulosin HCl (Flomax) 0.4 mg PO DAILY [facility] Last Admin: 03/28/17 09:43 Dose: Not Given Vitamin A (Vitamin A & D Oint Ud Foilpak) 0.5 ea TOP Q4 [facility] Last Admin: 03/29/17 05:05 Dose: 0.5 ea - Labs Labs: 03/26/17 06:39 03/26/17 06:39 PT 19.5 SECONDS (9.7-12.2) H 03/23/17 14:24 INR 1.7 03/23/17 14:24 APTT 49 SECONDS (21-34) H 03/23/17 14:24
[2017-03-29] MEDS: Budesonide 0.5 mg/2 ml Inhal Susp UD INH SCH ×2 (07:55→19:55)
--- NOTE | 2017-03-29 08:43 | RAD ---
HISTORY: respiratory distress COMPARISON: 03/24/2017. FINDINGS: LUNGS: The lungs are hyperinflated and there is peribronchial thickening with chronic changes in both lungs. No focal consolidation. PLEURA: Small right pleural effusion, no pneumothorax apparent. There are extensive bilateral calcified pleural plaques. There is biapical pleural thickening. CARDIOVASCULAR: Normal. OSSEOUS STRUCTURES: Diffuse bone demineralization. VISUALIZED UPPER ABDOMEN: Normal. OTHER FINDINGS: None. IMPRESSION: COPD. Small right pleural effusion. No consolidation. Bilateral extensive calcified pleural plaques consistent with history of prior asbestos exposure.
[2017-03-29] MEDS: Vancomycin 1 gm/NS 200 ml 1 GM/200 ML BAG IVPB SCH (09:10)
[2017-03-29] MEDS: Multiple Vitamins Tab PO SCH ×2 (09:38→10:00)
[2017-03-29] MEDS: Potassium & Sodium Phosphate PO SCH ×3 (09:39→22:43)
[2017-03-29] MEDS: Magnesium Oxide 400 mg Tab UD NG SCH ×3 (09:39→22:43)
--- NOTE | 2017-03-29 10:30 | PCM.URO ---
Urology Progress Note - Objective Lab Results Last 24 Hours: Laboratory Results - last 24 hr 03/29/17 02:52 Puncture Site Rr pCO2 29 L pO2 100 HCO3 25.7 ABG pH 7.52 H ABG Total CO2 24.6 ABG O2 Saturation 100.2 H ABG Base Excess 1.0 ABG Hemoglobin 7.9 L ABG Carboxyhemoglobin 1.6 H POC ABG HHb (Measured) -0.2 L ABG Methemoglobin 1.2 Michael Test Pos A-a O2 Difference 577.0 Respiratory Index 5.8 Hgb O2 Saturation 97.4 Liter Flow 15.0 FiO2 100.0 Intake & Output: Intake & Output 03/28/17 03/29/17 03/29/17 18:59 06:59 18:59 Intake Total 25 Output Total 175 Balance 25 -175 Intake: Oral 25 Output: Urine 175 Condom 175 Other: # Voids Condom 200 # Bowel Movements 0 Vital Signs: Vital Signs - 24 hr 03/28/17 03/28/17 03/28/17 15:27 15:30 18:46 Temperature 98.0 F Pulse Rate 79 79 Respiratory 20 Rate Blood Pressure 104/64 104/64 O2 Sat by Pulse 98 Oximetry 03/28/17 03/28/17 03/29/17 23:25 23:30 01:00 Temperature 97.2 F L Pulse Rate 98 H 112 H 130 H Respiratory 20 25 H Rate Blood Pressure 107/45 L O2 Sat by Pulse 95 84 L Oximetry 03/29/17 03/29/17 03/29/17 02:00 03:00 05:00 Temperature 96.9 F L Pulse Rate 125 H 127 H Respiratory 28 H 25 H Rate Blood Pressure 98/57 L O2 Sat by Pulse 95 98 98 Oximetry 03/29/17 08:00 Temperature Pulse Rate 110 H Respiratory Rate Blood Pressure O2 Sat by Pulse Oximetry - Date & Time of Note Date: 03/29/17 Time: 10:30
--- NOTE | 2017-03-29 11:12 | CP.PCM.PN ---
Subjective - Date & Time of Evaluation Date of Evaluation: 03/29/17 Time of Evaluation: 11:00 - Subjective Subjective: Podiatry Progress Note- Dr. Celeste 81 y/o male pt seen at bedside this AM concerning unstageable decubitus ulcerations to left heel & left lateral 5th metatarsal head. Pt is seen resting in bed at time of visit w/ rebreather mask in place. Pt appears awake, but quite lethargic today. 1:1 at bedside. Offloading heel boots in place BL. Per primary plan for comfort care at this time. Objective - Vital Signs/Intake and Output Vital Signs (last 24 hours): Temp Pulse Resp BP Pulse Ox 96.9 F L 110 H 25 H 98/57 L 98 03/29/17 05:00 03/29/17 08:00 03/29/17 05:00 03/29/17 05:00 03/29/17 05:00 Intake and Output: 03/29/17 03/29/17 06:59 18:59 Output Total 175 Balance -175 - Medications Medications: Current Medications Acetaminophen (Tylenol 325mg Tab) 650 mg PO Q6H PRN PRN Reason: PAIN, MILD 1-3 Aspirin (Aspirin Chewable) 81 mg PO DAILY [facility] Last Admin: 03/29/17 09:38 Dose: 81 mg Budesonide (Pulmicort Respules) 0.5 mg INH RQ12 [facility] Last Admin: 03/29/17 07:55 Dose: Not Given Enoxaparin Sodium (Lovenox) 60 mg SC Q12 [facility] Last Admin: 03/28/17 21:54 Dose: 60 mg Phenylephrine HCl 30 mg/ (Dextrose) 253 mls @ 10.12 mls/hr IV .Q24H PRN; Protocol; 20 MCG/MIN PRN Reason: TITRATE PER MD ORDER Last Titration: 03/24/17 16:00 Dose: Infused Piperacillin Sod/Tazobactam Sod (Zosyn 3.375 Gm Iv Premix) 3.375 gm in 50 mls @ 100 mls/hr IVPB Q6H [facility] Last Admin: 03/29/17 08:30 Dose: 100 mls/hr Vancomycin/Sodium Chloride (Vancomycin 1 Gm/Ns 200 Ml) 1 gm in 200 mls @ 167 mls/hr IVPB DAILY [facility] Stop: 04/03/17 10:01 Last Admin: 03/29/17 09:10 Dose: 167 mls/hr Magnesium Oxide (Mag-Ox) 400 mg NG BID [facility] Last Admin: 03/29/17 09:39 Dose: 400 mg Metoprolol Tartrate (Lopressor) 25 mg PO BID [facility] Last Admin: 03/28/17 18:46 Dose: 25 mg Multivitamins (Hexavitamin) 1 tab PO DAILY [facility] Last Admin: 03/29/17 09:38 Dose: 1 tab Oxycodone/Acetaminophen (Percocet 5/325 Mg Tab) 1 tab PO Q6H PRN PRN Reason: Pain, moderate (4-7) Stop: 03/29/17 17:14 Last Admin: 03/27/17 18:04 Dose: 1 tab Potassium Phos/Sodium Phos (Neutra-Phos) 1 pkt PO BID [facility] Last Admin: 03/29/17 09:39 Dose: 1 pkt Rosuvastatin Calcium (Crestor) 10 mg PO HS [facility] Last Admin: 03/28/17 21:54 Dose: 10 mg Tamsulosin HCl (Flomax) 0.4 mg PO DAILY [facility] Last Admin: 03/29/17 09:38 Dose: 0.4 mg Vitamin A (Vitamin A & D Oint Ud Foilpak) 0.5 ea TOP Q4 [facility] Last Admin: 03/29/17 05:05 Dose: 0.5 ea - Labs Labs: 03/26/17 06:39 03/26/17 06:39 PT 19.5 SECONDS (9.7-12.2) H 03/23/17 14:24 INR 1.7 03/23/17 14:24 APTT 49 SECONDS (21-34) H 03/23/17 14:24 - Constitutional Appears: Non-toxic, No Acute Distress, Chronically Ill - Extremities Exam Additional comments: B/L lower ext exam: Vasc: Non-palpable DP/PT pulses B/L, cfl < 3sec to all digits, skin temp wnl BL , no edema appreciated Neuro: Gross pedal sensation is intact B/L Derm: unstageable decubitus ulceration to heel measuring 3cm x 4cm with no drainage, neg ptb, neg fluctuance, no malodor. No signs infection, there is also an ulceration noted to lateral aspect of 5th metatarsal head measuring 1.2cmx 1.0cm with fibrous base, + probe to bone, no purulence today, neg malodor , neg cellulitis Ortho: tenderness is noted to palpation to heel at the site of ulceration, slight tenderness elicited to palpation to lateral 5th metatarsal head - Neurological Exam Neurological Exam: Awake - Psychiatric Exam Additional comments: unable to obtain Assessment and Plan - Assessment and Plan (Free Text) Assessment: 81 y/o male w/ unstageable decubitus ulcerations to left heel and left lateral 5th metatarsal head Plan: Patient S&E at the bedside Plan discussed in detail with attending Dr. Celeste chart, labs and vitals reviewed: afebrile, WBC is elevated today 17.2 (up from 4.8 on 03/26/17) L foot xray (03/04/17): No evidence of OM L foot bone scan (03/10/17): neg OM L foot dressed with betadine soaked gauze, DSD, and multipodus boots applied B/L Continue multipodus boots at all times to prevent new/worsening decubitus ulcerations cont. IV abx regimen Per primary, comfort care at this time. no plans for surgical debridement of left foot at this time Podiatry will follow
[2017-03-29 11:32] LABS: BASO # 0.1 K/uL (0.0-0.2); BASO % 0.4 % (0.0-2.0); HEMOGLOBIN 7.9 g/dL (12.0-18.0); LYMPH # 0.6 K/uL (1.0-4.3); LYMPH % 3.7 % (20.0-40.0); MEAN CELL VOLUME 86.4 fL (80.0-94.0); MEAN CORPUSCULAR HEMOGLOBIN 27.7 pg (27.0-31.0); MEAN CORPUSCULAR HGB CONC 32.1 g/dL (33.0-37.0); MEAN PLATELET VOLUME 7.4 fL (7.2-11.7); MONO # 1.1 K/uL (0.0-0.8); MONO % 6.2 % (0.0-10.0); NEUT # 15.4 K/uL (1.8-7.0); NEUT % 89.7 % (50.0-75.0); PLATELET COUNT 308 K/uL (130-400); RBC 2.86 Mil/uL (4.40-5.90); RED CELL DISTRIBUTION WIDTH 15.2 % (11.5-14.5); WHITE BLOOD COUNT 17.2 K/uL (4.8-10.8)
--- NOTE | 2017-03-29 11:55 | CP.PCM.PN ---
Subjective - Date & Time of Evaluation Date of Evaluation: 03/29/17 Time of Evaluation: 09:30 - Subjective Subjective: Patient looks marga sck, offera no complaints, on non rebrither mask. Objective - Vital Signs/Intake and Output Vital Signs (last 24 hours): Temp Pulse Resp BP Pulse Ox 96.9 F L 110 H 25 H 98/57 L 98 03/29/17 05:00 03/29/17 08:00 03/29/17 05:00 03/29/17 05:00 03/29/17 05:00 Intake and Output: 03/29/17 03/29/17 06:59 18:59 Output Total 175 Balance -175 - Medications Medications: Current Medications Acetaminophen (Tylenol 325mg Tab) 650 mg PO Q6H PRN PRN Reason: PAIN, MILD 1-3 Aspirin (Aspirin Chewable) 81 mg PO DAILY [facility] Last Admin: 03/29/17 09:38 Dose: 81 mg Budesonide (Pulmicort Respules) 0.5 mg INH RQ12 [facility] Last Admin: 03/29/17 07:55 Dose: Not Given Enoxaparin Sodium (Lovenox) 60 mg SC Q12 [facility] Last Admin: 03/28/17 21:54 Dose: 60 mg Phenylephrine HCl 30 mg/ (Dextrose) 253 mls @ 10.12 mls/hr IV .Q24H PRN; Protocol; 20 MCG/MIN PRN Reason: TITRATE PER MD ORDER Last Titration: 03/24/17 16:00 Dose: Infused Vancomycin/Sodium Chloride (Vancomycin 1 Gm/Ns 200 Ml) 1 gm in 200 mls @ 167 mls/hr IVPB DAILY [facility] Stop: 04/03/17 10:01 Last Admin: 03/29/17 09:10 Dose: 167 mls/hr Piperacillin Sod/Tazobactam (Sod 3.375 gm/ Sodium Chloride) 100 mls @ 100 mls/ hr IVPB Q6H [facility] Magnesium Oxide (Mag-Ox) 400 mg NG BID [facility] Last Admin: 03/29/17 09:39 Dose: 400 mg Metoprolol Tartrate (Lopressor) 25 mg PO BID [facility] Last Admin: 03/28/17 18:46 Dose: 25 mg Multivitamins (Hexavitamin) 1 tab PO DAILY [facility] Last Admin: 03/29/17 09:38 Dose: 1 tab Oxycodone/Acetaminophen (Percocet 5/325 Mg Tab) 1 tab PO Q6H PRN PRN Reason: Pain, moderate (4-7) Stop: 03/29/17 17:14 Last Admin: 03/27/17 18:04 Dose: 1 tab Potassium Phos/Sodium Phos (Neutra-Phos) 1 pkt PO BID [facility] Last Admin: 03/29/17 09:39 Dose: 1 pkt Rosuvastatin Calcium (Crestor) 10 mg PO HS [facility] Last Admin: 03/28/17 21:54 Dose: 10 mg Tamsulosin HCl (Flomax) 0.4 mg PO DAILY [facility] Last Admin: 03/29/17 09:38 Dose: 0.4 mg Vitamin A (Vitamin A & D Oint Ud Foilpak) 0.5 ea TOP Q4 [facility] Last Admin: 03/29/17 05:05 Dose: 0.5 ea - Labs Labs: 03/29/17 11:27 03/26/17 06:39 PT 19.5 SECONDS (9.7-12.2) H 03/23/17 14:24 INR 1.7 03/23/17 14:24 APTT 49 SECONDS (21-34) H 03/23/17 14:24 - Constitutional Appears: In Acute Distress, Chronically Ill - Head Exam Head Exam: ATRAUMATIC, NORMAL INSPECTION, NORMOCEPHALIC - Eye Exam Eye Exam: EOMI, Normal appearance, PERRL Pupil Exam: NORMAL ACCOMODATION, PERRL - ENT Exam ENT Exam: Mucous Membranes Dry - Neck Exam Neck Exam: Normal Inspection - Respiratory Exam Respiratory Exam: Accessory Muscle Use, Decreased Breath Sounds, Rhonchi, Respiratory Distress - Cardiovascular Exam Cardiovascular Exam: Tachycardia - GI/Abdominal Exam GI & Abdominal Exam: Soft, Hypoactive Bowel Sounds - Rectal Exam Rectal Exam: Deferred - Exam Additional comments: S/p Orchioectomy - Back Exam Back Exam: NORMAL INSPECTION - Neurological Exam Neurological Exam: Alert, Altered Neuro motor strength exam: Left Upper Extremity: 2/1, Right Upper Extremity: 2/1 , Left Lower Extremity: 2/1, Right Lower Extremity: 2/1 - Psychiatric Exam Psychiatric exam: Depressed - Skin Skin Exam: Normal Color, Warm Assessment and Plan - Assessment and Plan (Free Text) Assessment: Patient seen and examined in bed looking very sick, lethargic with minimal interaction. Patient is much less alert than yesterday morning. Non rebreather mask on, o2Sat 98%. RR 32, HR 127, BP 98/57. Skin cool to touch , moist and clammy. Per record, Doctor Nohemy spoke to EDELMIRA Woodall about patient' s worsening condition . I met with Talisha HICKEY this morning and reviewed patient's clinical presentation. I marcus my concern regarding patient's respiratory status and inability to swallow . She stated understanding. Goals of care discussed. Talisha was very clear that patient would never want any further aggresive measures in term of CPR, intubation or PEG. I reviewed the existing POLST with her, signed by the patient and she agreed with it. Advance care discussed. I offered more information about the Comfort care under the Hospice. Talisha sated those measures were what she would want to have for the patient. I shared this with Codie DIAZ who placed the Hospice eval order in. Impression * This is a very sick patient with worsening clinical presentation, in respiratory distress * Inadequate PO intake * Patient is most likely approaching end of his life * EDELMIRA Woodall, wishes comfort care for patient Suggestion * Would refer patient to a Hospice care * Would discontinue all blood work and further diagnostic studies * Would offer ice chips for hydration * Aspiration precautions * Promote skin integrity Palliative care will sign off at this time. Time spent in Advance care planing 45 min.
--- NOTE | 2017-03-29 11:59 | CP.PCM.PN ---
Subjective - Date & Time of Evaluation Date of Evaluation: 03/29/17 Time of Evaluation: 11:57 - Subjective Subjective: events noted short of breath, on O2 mask. lethargic notes reviewed, possibly comfort care, decision to be made by family today Objective - Vital Signs/Intake and Output Vital Signs (last 24 hours): Temp Pulse Resp BP Pulse Ox 96.9 F L 110 H 25 H 98/57 L 98 03/29/17 05:00 03/29/17 08:00 03/29/17 05:00 03/29/17 05:00 03/29/17 05:00 Intake and Output: 03/29/17 03/29/17 06:59 18:59 Output Total 175 Balance -175 - Medications Medications: Current Medications Acetaminophen (Tylenol 325mg Tab) 650 mg PO Q6H PRN PRN Reason: PAIN, MILD 1-3 Aspirin (Aspirin Chewable) 81 mg PO DAILY [facility] Last Admin: 03/29/17 09:38 Dose: 81 mg Budesonide (Pulmicort Respules) 0.5 mg INH RQ12 [facility] Last Admin: 03/29/17 07:55 Dose: Not Given Enoxaparin Sodium (Lovenox) 60 mg SC Q12 [facility] Last Admin: 03/28/17 21:54 Dose: 60 mg Phenylephrine HCl 30 mg/ (Dextrose) 253 mls @ 10.12 mls/hr IV .Q24H PRN; Protocol; 20 MCG/MIN PRN Reason: TITRATE PER MD ORDER Last Titration: 03/24/17 16:00 Dose: Infused Vancomycin/Sodium Chloride (Vancomycin 1 Gm/Ns 200 Ml) 1 gm in 200 mls @ 167 mls/hr IVPB DAILY [facility] Stop: 04/03/17 10:01 Last Admin: 03/29/17 09:10 Dose: 167 mls/hr Piperacillin Sod/Tazobactam (Sod 3.375 gm/ Sodium Chloride) 100 mls @ 100 mls/ hr IVPB Q6H [facility] Magnesium Oxide (Mag-Ox) 400 mg NG BID [facility] Last Admin: 03/29/17 09:39 Dose: 400 mg Metoprolol Tartrate (Lopressor) 25 mg PO BID [facility] Last Admin: 03/28/17 18:46 Dose: 25 mg Multivitamins (Hexavitamin) 1 tab PO DAILY [facility] Last Admin: 03/29/17 09:38 Dose: 1 tab Oxycodone/Acetaminophen (Percocet 5/325 Mg Tab) 1 tab PO Q6H PRN PRN Reason: Pain, moderate (4-7) Stop: 03/29/17 17:14 Last Admin: 03/27/17 18:04 Dose: 1 tab Potassium Phos/Sodium Phos (Neutra-Phos) 1 pkt PO BID [facility] Last Admin: 03/29/17 09:39 Dose: 1 pkt Rosuvastatin Calcium (Crestor) 10 mg PO HS [facility] Last Admin: 03/28/17 21:54 Dose: 10 mg Tamsulosin HCl (Flomax) 0.4 mg PO DAILY [facility] Last Admin: 03/29/17 09:38 Dose: 0.4 mg Vitamin A (Vitamin A & D Oint Ud Foilpak) 0.5 ea TOP Q4 [facility] Last Admin: 03/29/17 05:05 Dose: 0.5 ea - Labs Labs: 03/29/17 11:27 03/26/17 06:39 PT 19.5 SECONDS (9.7-12.2) H 03/23/17 14:24 INR 1.7 03/23/17 14:24 APTT 49 SECONDS (21-34) H 03/23/17 14:24 - Constitutional Appears: Non-toxic, No Acute Distress, Confused, Cachectic, Chronically Ill - Head Exam Head Exam: NORMAL INSPECTION - Eye Exam Eye Exam: Normal appearance - ENT Exam ENT Exam: Normal Exam (O2 mask) - Neck Exam Neck Exam: Normal Inspection - Respiratory Exam Respiratory Exam: Accessory Muscle Use, Rhonchi, NORMAL BREATHING PATTERN - Cardiovascular Exam Cardiovascular Exam: Tachycardia, RRR - GI/Abdominal Exam GI & Abdominal Exam: Distended, Soft - Extremities Exam Extremities Exam: Normal Inspection - Neurological Exam Neurological Exam: absent: Alert, Awake - Skin Skin Exam: Dry, Warm Assessment and Plan (1) CA prostate, adenoca Status: Acute (2) Hyponatremia Status: Acute (3) S/P TURP (status post transurethral resection of prostate) Status: Acute (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
[2017-03-29 12:06] LABS: BANDS 26 % (0-2); LYMPHOCYTE 4 % (20-40); MONOCYTE 5 % (0-10); NEUTROPHIL 65 % (50-75); PLATELET ESTIMATE NORMAL (NORMAL); TOTAL CELLS COUNTED 100
[2017-03-29 12:07] LABS: ANISOCYTOSIS SLIGHT; HYPOCHROMIC SLIGHT; OVALOCYTES SLIGHT; POIKILOCYTOSIS SLIGHT; POLYCHROMIC SLIGHT
[2017-03-29 12:08] LABS: BURR CELLS SLIGHT
[2017-03-29 12:09] LABS: LARGE PLATELETS PRESENT
[2017-03-29 12:15] LABS: BLOOD UREA NITROGEN 12 mg/dL (9-20); CALCIUM 7.3 mg/dl (8.6-10.4); GFR AFRICAN-AMERICAN > 60; GFR NON-AFRICAN AMERICAN > 60
[2017-03-29] MEDS: Enoxaparin 60 mg Syringe SC SCH (12:51)
[2017-03-29] MEDS: Piperacillin/Tazobact 3.375 GM in Sodium Chloride 0.9% 100 ML IVPB SCH ×2 (14:05→22:44)
[2017-03-29] MEDS ORDERED: Potassium Chloride 20 mEq/15 ml LIQ UD PO ONE (14:15)
--- NOTE | 2017-03-29 14:23 | PN ---
DATE: FOLLOWUP SUBJECTIVE: The patient is currently sleepy; however, according to the [employer], there was awake and communicating. He does not appear to be in respiratory distress. PHYSICAL EXAMINATION: VITAL SIGNS: Blood pressure 98/59, heart rate 127, temperature 96.9, respirations 25. HEENT: The patient is pale. NECK: No JVD. CHEST: Minimal rhonchi. HEART: S1 and S2 regular. EXTREMITIES: Dressing is applied to the left foot. LABORATORY DATA: Hemoglobin and hematocrit 7.9 and 24.7, white count 17.2, platelet count 308,000. SMA-7: Sodium 134, potassium 3.3, chloride 102, CO2 of 28, glucose 61, BUN 12, creatinine 0.7. Calcium is below normal at 7.3. ASSESSMENT: 1. Paroxysmal atrial fibrillation. 2. Status post left posterior tibial artery balloon angioplasty. 3. Chronic left foot ulcer. 4. Hypokalemia and hypomagnesemia. RECOMMENDATIONS: The case was discussed with the [employer]. Continue current IV antibiotics including IV Zosyn and IV vancomycin. Continue magnesium oxide, aspirin 81 mg once a day, Crestor 10 mg once a day. Change Lovenox to 30 mg subcutaneously once a day and start Plavix 75 mg once a day. The patient is being placed on hospice as per the [employer]. Theo Cervantes MD
[2017-03-29] MEDS: Dextrose 5%/0.45% NS 1,000 ML IV SCH (17:10)
[2017-03-29] MEDS: Ipratropium 0.02% Inhal Soln (0.5 mg/2.5 ml) UD IH SCH (19:55)
[2017-03-29 20:17] LABS: BLOOD UREA NITROGEN 15 mg/dL (9-20); CALCIUM 7.4 mg/dl (8.6-10.4); GFR AFRICAN-AMERICAN > 60; GFR NON-AFRICAN AMERICAN > 60
--- NOTE | 2017-03-29 21:38 | CP.PCM.PN ---
Subjective - Date & Time of Evaluation Date of Evaluation: 03/29/17 Time of Evaluation: 21:38 - Subjective Subjective: events noted short of breath, on O2 mask. lethargic. LEUKOCYTOSIS WITH INCREASING BANDEMIA. ? aspiration. CHRONIC Romero ? CYSTITIS. CT ANGIO CHEST,ABD,PELVIS REVIEWED 03/23/17 -VE FOR PE. ?RLL INFILTERATE. EXT PLEURAL PLAQUES ?ASBESTOSIS EXPOSURE. CASE DISCUSSED WITH STAFF. CONTINUE IV ZOSYN,IV VANCOMYCIN. ADD IV FLAGYL 500 MG EVERY 12 HOURLY FOR ANAEROBIC COVERAGE FOR NOW. F/U CHEST X-RAY TODAY. Objective - Vital Signs/Intake and Output Vital Signs (last 24 hours): Temp Pulse Resp BP Pulse Ox 96.9 F L 110 H 25 H 98/57 L 98 03/29/17 05:00 03/29/17 08:00 03/29/17 05:00 03/29/17 05:00 03/29/17 05:00 - Medications Medications: Current Medications Acetaminophen (Tylenol 325mg Tab) 650 mg PO Q6H PRN PRN Reason: PAIN, MILD 1-3 Aspirin (Aspirin Chewable) 81 mg PO DAILY [facility] Last Admin: 03/29/17 10:00 Dose: Not Given Budesonide (Pulmicort Respules) 0.5 mg INH RQ12 [facility] Last Admin: 03/29/17 19:55 Dose: Not Given Clopidogrel Bisulfate (Plavix) 75 mg PO DAILY [facility] Enoxaparin Sodium (Lovenox) 30 mg SC DAILY [facility] Phenylephrine HCl 30 mg/ (Dextrose) 253 mls @ 10.12 mls/hr IV .Q24H PRN; Protocol; 20 MCG/MIN PRN Reason: TITRATE PER MD ORDER Last Titration: 03/24/17 16:00 Dose: Infused Vancomycin/Sodium Chloride (Vancomycin 1 Gm/Ns 200 Ml) 1 gm in 200 mls @ 167 mls/hr IVPB DAILY [facility] Stop: 04/03/17 10:01 Last Admin: 03/29/17 09:10 Dose: 167 mls/hr Piperacillin Sod/Tazobactam (Sod 3.375 gm/ Sodium Chloride) 100 mls @ 100 mls/ hr IVPB Q6H [facility] Last Admin: 03/29/17 14:05 Dose: 100 mls/hr Potassium Chloride (Potassium Chloride 20 Meq/100 Ml) 20 meq in 100 mls @ 50 mls/hr IVPB Q2 [facility] Stop: 03/29/17 21:59 Dextrose/Sodium Chloride (Dextrose 5%/0.45% Ns 1000 Ml) 1,000 mls @ 30 mls/hr IV .Q24H [facility] Metronidazole (Flagyl) 500 mg in 100 mls @ 100 mls/hr IVPB Q12 [facility] Ipratropium Hartly (Atrovent) 0.5 mg IH RQ6 [facility] Last Admin: 03/29/17 19:55 Dose: 0.5 mg Magnesium Oxide (Mag-Ox) 400 mg NG BID [facility] Last Admin: 03/29/17 10:00 Dose: Not Given Metoprolol Tartrate (Lopressor) 25 mg PO BID [facility] Last Admin: 03/29/17 10:00 Dose: Not Given Morphine Sulfate (Morphine) 2 mg IVP Q4 PRN PRN Reason: Pain, moderate (4-7) Multivitamins (Hexavitamin) 1 tab PO DAILY [facility] Last Admin: 03/29/17 10:00 Dose: Not Given Potassium Phos/Sodium Phos (Neutra-Phos) 1 pkt PO BID [facility] Last Admin: 03/29/17 10:00 Dose: Not Given Rosuvastatin Calcium (Crestor) 10 mg PO HS [facility] Last Admin: 03/28/17 21:54 Dose: 10 mg Tamsulosin HCl (Flomax) 0.4 mg PO DAILY [facility] Last Admin: 03/29/17 14:12 Dose: Not Given Vitamin A (Vitamin A & D Oint Ud Foilpak) 0.5 ea TOP Q4 [facility] Last Admin: 03/29/17 12:41 Dose: 0.5 ea - Labs Labs: 03/29/17 11:27 03/29/17 19:45 PT 19.5 SECONDS (9.7-12.2) H 03/23/17 14:24 INR 1.7 03/23/17 14:24 APTT 49 SECONDS (21-34) H 03/23/17 14:24 - Constitutional Appears: No Acute Distress, Cachectic, Chronically Ill - Head Exam Head Exam: NORMAL INSPECTION - Eye Exam Eye Exam: EOMI, PERRL - ENT Exam ENT Exam: Mucous Membranes Dry, Normal Oropharynx - Respiratory Exam Respiratory Exam: Rhonchi (BILATERALLY.) - Cardiovascular Exam Cardiovascular Exam: Tachycardia - GI/Abdominal Exam GI & Abdominal Exam: Soft, Normal Bowel Sounds - Extremities Exam Extremities Exam: absent: Calf Tenderness, Pedal Edema - Neurological Exam Neurological Exam: Awake - Skin Skin Exam: Pallor, Warm Assessment and Plan - Assessment and Plan (Free Text) Assessment: ASSESSMENT SEPSIS /LEUKOCYTOSIS ?ASPIRATION S/P - B/L ORCHIECTOMY 03/21/17 S/P TURP- S/P SEPSIS SEC. UTI/CHRONIC Romero +VE MRSA HX . URINARY RETENTION CA OF PROSTATE. HYPONATREMIIA HTN. lEFT FOOT DECUBITUS ULCER-UNSTAGEABLE. /PLAN : ON IV ZOSYN 3.375 MG IV Q6 [facility]. 03/17/17. ON IV VANCOMYCIN 1 G EVERY 24 HOURLY. ADD IV FLAGYL 500 EVERY 12 HOURLY .03/29/17 SPUTUM gRAM STAIN AND CULTURE UA/URINE CULTURE CXR TO EVALUATE FOR ASPIRATION. POST OPTIVE CARE PER PROGNOSIS GUARDED..
[2017-03-29] MEDS: metroNIDAZOLE IV 500 mg/100 ml 500 MG/100 ML BAG IVPB SCH (22:42)
--- NOTE | 2017-03-29 23:32 | CP.PCM.PN ---
Subjective - Date & Time of Evaluation Date of Evaluation: 03/29/17 Time of Evaluation: 19:00 - Subjective Subjective: Pt seen and examined by me today , is coughing, congested, mild resp distress on oxygen Objective - Vital Signs/Intake and Output Vital Signs (last 24 hours): Temp Pulse Resp BP Pulse Ox 96.9 F L 110 H 25 H 98/57 L 98 03/29/17 05:00 03/29/17 08:00 03/29/17 05:00 03/29/17 05:00 03/29/17 05:00 - Medications Medications: Current Medications Acetaminophen (Tylenol 325mg Tab) 650 mg PO Q6H PRN PRN Reason: PAIN, MILD 1-3 Aspirin (Aspirin Chewable) 81 mg PO DAILY [facility] Last Admin: 03/29/17 10:00 Dose: Not Given Budesonide (Pulmicort Respules) 0.5 mg INH RQ12 [facility] Last Admin: 03/29/17 19:55 Dose: Not Given Clopidogrel Bisulfate (Plavix) 75 mg PO DAILY [facility] Enoxaparin Sodium (Lovenox) 30 mg SC DAILY [facility] Phenylephrine HCl 30 mg/ (Dextrose) 253 mls @ 10.12 mls/hr IV .Q24H PRN; Protocol; 20 MCG/MIN PRN Reason: TITRATE PER MD ORDER Last Titration: 03/24/17 16:00 Dose: Infused Vancomycin/Sodium Chloride (Vancomycin 1 Gm/Ns 200 Ml) 1 gm in 200 mls @ 167 mls/hr IVPB DAILY [facility] Stop: 04/03/17 10:01 Last Admin: 03/29/17 09:10 Dose: 167 mls/hr Piperacillin Sod/Tazobactam (Sod 3.375 gm/ Sodium Chloride) 100 mls @ 100 mls/ hr IVPB Q6H [facility] Last Admin: 03/29/17 22:44 Dose: 100 mls/hr Dextrose/Sodium Chloride (Dextrose 5%/0.45% Ns 1000 Ml) 1,000 mls @ 30 mls/hr IV .Q24H [facility] Last Admin: 03/29/17 17:10 Dose: 30 mls/hr Metronidazole (Flagyl) 500 mg in 100 mls @ 100 mls/hr IVPB Q12 [facility] Last Admin: 03/29/17 22:42 Dose: 100 mls/hr Ipratropium [place] (Atrovent) 0.5 mg IH RQ6 [facility] Last Admin: 03/29/17 19:55 Dose: 0.5 mg Magnesium Oxide (Mag-Ox) 400 mg NG BID [facility] Last Admin: 03/29/17 22:43 Dose: Not Given Metoprolol Tartrate (Lopressor) 25 mg PO BID [facility] Last Admin: 03/29/17 22:42 Dose: Not Given Morphine Sulfate (Morphine) 2 mg IVP Q4 PRN PRN Reason: Pain, moderate (4-7) Multivitamins (Hexavitamin) 1 tab PO DAILY [facility] Last Admin: 03/29/17 10:00 Dose: Not Given Potassium Phos/Sodium Phos (Neutra-Phos) 1 pkt PO BID [facility] Last Admin: 03/29/17 22:43 Dose: Not Given Rosuvastatin Calcium (Crestor) 10 mg PO HS [facility] Last Admin: 03/28/17 21:54 Dose: 10 mg Tamsulosin HCl (Flomax) 0.4 mg PO DAILY [facility] Last Admin: 03/29/17 14:12 Dose: Not Given Vitamin A (Vitamin A & D Oint Ud Foilpak) 0.5 ea TOP Q4 [facility] Last Admin: 03/29/17 22:43 Dose: 0.5 ea - Labs Labs: 03/29/17 11:27 03/29/17 19:45 PT 19.5 SECONDS (9.7-12.2) H 03/23/17 14:24 INR 1.7 03/23/17 14:24 APTT 49 SECONDS (21-34) H 03/23/17 14:24 - Constitutional Appears: No Acute Distress - Head Exam Head Exam: ATRAUMATIC, NORMAL INSPECTION, NORMOCEPHALIC - Eye Exam Eye Exam: EOMI, Normal appearance, PERRL Pupil Exam: NORMAL ACCOMODATION, PERRL - Respiratory Exam Respiratory Exam: Decreased Breath Sounds, Rales, Rhonchi - Cardiovascular Exam Cardiovascular Exam: REGULAR RHYTHM, +S1, +S2. absent: Murmur - GI/Abdominal Exam GI & Abdominal Exam: Soft, Normal Bowel Sounds. absent: Tenderness Assessment and Plan (1) CA prostate, adenoca Status: Acute (2) Sepsis Assessment & Plan: -VE FOR PE. ?RLL INFILTERATE. EXT PLEURAL PLAQUES ?ASBESTOSIS EXPOSURE. Status: Acute (3) UTI (urinary tract infection) Status: Acute (4) Acute urinary retention Status: Acute (5) CAD (coronary artery disease) Status: Acute (6) Hyponatremia Status: Acute (7) S/P TURP (status post transurethral resection of prostate) Assessment & Plan: CHRONIC Romero ? CYSTITIS. CT ANGIO CHEST,ABD,PELVIS REVIEWED 03/23/17 . CONTINUE IV ZOSYN,IV VANCOMYCIN. ADD IV FLAGYL 500 MG EVERY 12 HOURLY FOR ANAEROBIC COVERAGE FOR NOW. Status: Acute (8) Malnourished Status: Acute (9) S/P orchiectomy Status: Acute (10) PVD (peripheral vascular disease) Status: Acute (11) Pulmonary congestion Assessment & Plan: short of breath, on O2 mask. lethargic. LEUKOCYTOSIS WITH INCREASING BANDEMIA. ? aspiration. F/U CHEST X-RAY TODAY. Status: Acute
[2017-03-30] MEDS: Vitamins A & D Oint UD Foilpak TOP SCH ×6 (00:18→22:01)
[2017-03-30] MEDS: Ipratropium 0.02% Inhal Soln (0.5 mg/2.5 ml) UD IH SCH ×4 (01:34→19:31)
[2017-03-30] MEDS: Piperacillin/Tazobact 3.375 GM in Sodium Chloride 0.9% 100 ML IVPB SCH ×3 (05:49→17:49)
[2017-03-30 07:48] LABS: BASO % 0.2 % (0.0-2.0); EOS % 0.1 % (0.0-4.0); HEMOGLOBIN 7.9 g/dL (12.0-18.0); LYMPH # 1.1 K/uL (1.0-4.3); LYMPH % 7.1 % (20.0-40.0); MEAN CELL VOLUME 86.2 fL (80.0-94.0); MEAN CORPUSCULAR HEMOGLOBIN 28.2 pg (27.0-31.0); MEAN CORPUSCULAR HGB CONC 32.8 g/dL (33.0-37.0); MEAN PLATELET VOLUME 7.3 fL (7.2-11.7); MONO # 0.8 K/uL (0.0-0.8); MONO % 5.3 % (0.0-10.0); NEUT # 13.9 K/uL (1.8-7.0); NEUT % 87.3 % (50.0-75.0); PLATELET COUNT 284 K/uL (130-400); RED CELL DISTRIBUTION WIDTH 15.6 % (11.5-14.5)
[2017-03-30] MEDS: Budesonide 0.5 mg/2 ml Inhal Susp UD INH SCH ×2 (07:51→19:31)
[2017-03-30 08:10] LABS: BLOOD UREA NITROGEN 16 mg/dL (9-20); CALCIUM 7.1 mg/dl (8.6-10.4); GFR AFRICAN-AMERICAN > 60; GFR NON-AFRICAN AMERICAN > 60
[2017-03-30 08:26] LABS: SQUAMOUS EPITHIAL 1 /hpf (0-5); URINE BACTERIA RARE (<OCC); URINE BILIRUBIN NEGATIVE (NEGATIVE); URINE BLOOD 2+ (NEGATIVE); URINE CLARITY Hazy (Clear); URINE COLOR Yellow (YELLOW); URINE GLUCOSE (UA) NORMAL (Normal); URINE LEUKOCYTE ESTERASE 2+ Leu/uL (Negative); URINE NITRATE NEGATIVE (NEGATIVE); URINE PROTEIN 1+ mg/dL (NEGATIVE); URINE UROBILINOGEN NORMAL mg/dL (0.2-1.0)
[2017-03-30] MEDS: Vancomycin 1 gm/NS 200 ml 1 GM/200 ML BAG IVPB SCH (09:30)
[2017-03-30] MEDS: Multiple Vitamins Tab PO SCH (10:00)
[2017-03-30] MEDS: Potassium & Sodium Phosphate PO SCH ×2 (10:00→17:51)
[2017-03-30] MEDS: Magnesium Oxide 400 mg Tab UD NG SCH ×2 (10:00→17:52)
[2017-03-30 10:10] LABS: ANISOCYTOSIS SLIGHT; BANDS 12 % (0-2); BASOPHIL 1 % (0-2); HYPOCHROMIC SLIGHT; LYMPHOCYTE 4 % (20-40); MONOCYTE 3 % (0-10); NEUTROPHIL 79 % (50-75); PLATELET ESTIMATE NORMAL (NORMAL); REACTIVE LYMPHOCYTES 1 % (0-0); TOTAL CELLS COUNTED 100
[2017-03-30 10:11] LABS: OVALOCYTES SLIGHT
[2017-03-30] MEDS: metroNIDAZOLE IV 500 mg/100 ml 500 MG/100 ML BAG IVPB SCH ×2 (10:47→22:00)
[2017-03-30] MEDS: Enoxaparin 30 mg Syringe SC SCH (10:49)
--- NOTE | 2017-03-30 14:39 | CP.PCM.PN ---
Subjective - Date & Time of Evaluation Date of Evaluation: 03/30/17 Time of Evaluation: 14:37 - Subjective Subjective: Considering comfort care Na 135- better Will follow up as needed Objective - Vital Signs/Intake and Output Vital Signs (last 24 hours): Temp Pulse Resp BP Pulse Ox 98 F 91 H 20 92/53 L 97 03/30/17 07:00 03/30/17 07:00 03/30/17 07:00 03/30/17 07:00 03/30/17 07:00 Intake and Output: 03/30/17 03/30/17 06:59 18:59 Intake Total 180 Output Total 100 Balance 80 - Medications Medications: Current Medications Acetaminophen (Tylenol 325mg Tab) 650 mg PO Q6H PRN PRN Reason: PAIN, MILD 1-3 Aspirin (Aspirin Chewable) 81 mg PO DAILY [facility] Last Admin: 03/29/17 10:00 Dose: Not Given Budesonide (Pulmicort Respules) 0.5 mg INH RQ12 [facility] Last Admin: 03/30/17 07:51 Dose: 0.5 mg Clopidogrel Bisulfate (Plavix) 75 mg PO DAILY [facility] Enoxaparin Sodium (Lovenox) 30 mg SC DAILY [facility] Last Admin: 03/30/17 10:49 Dose: 30 mg Phenylephrine HCl 30 mg/ (Dextrose) 253 mls @ 10.12 mls/hr IV .Q24H PRN; Protocol; 20 MCG/MIN PRN Reason: TITRATE PER MD ORDER Last Titration: 03/24/17 16:00 Dose: Infused Vancomycin/Sodium Chloride (Vancomycin 1 Gm/Ns 200 Ml) 1 gm in 200 mls @ 167 mls/hr IVPB DAILY [facility] Stop: 04/03/17 10:01 Last Admin: 03/30/17 09:30 Dose: 167 mls/hr Dextrose/Sodium Chloride (Dextrose 5%/0.45% Ns 1000 Ml) 1,000 mls @ 30 mls/hr IV .Q24H [facility] Last Admin: 03/29/17 17:10 Dose: 30 mls/hr Metronidazole (Flagyl) 500 mg in 100 mls @ 100 mls/hr IVPB Q12 [facility] Last Admin: 03/30/17 10:47 Dose: 100 mls/hr Piperacillin Sod/Tazobactam (Sod 3.375 gm/ Sodium Chloride) 100 mls @ 100 mls/ hr IVPB Q6H [facility] Last Admin: 03/30/17 05:49 Dose: 100 mls/hr Ipratropium [place] (Atrovent) 0.5 mg IH RQ6 [facility] Last Admin: 03/30/17 13:12 Dose: 0.5 mg Magnesium Oxide (Mag-Ox) 400 mg NG BID [facility] Last Admin: 03/29/17 22:43 Dose: Not Given Metoprolol Tartrate (Lopressor) 25 mg PO BID [facility] Last Admin: 03/29/17 22:42 Dose: Not Given Morphine Sulfate (Morphine) 2 mg IVP Q4 PRN PRN Reason: Pain, moderate (4-7) Multivitamins (Hexavitamin) 1 tab PO DAILY [facility] Last Admin: 03/29/17 10:00 Dose: Not Given Potassium Phos/Sodium Phos (Neutra-Phos) 1 pkt PO BID [facility] Last Admin: 03/29/17 22:43 Dose: Not Given Rosuvastatin Calcium (Crestor) 10 mg PO HS [facility] Last Admin: 03/29/17 23:36 Dose: Not Given Tamsulosin HCl (Flomax) 0.4 mg PO DAILY [facility] Last Admin: 03/29/17 14:12 Dose: Not Given Vitamin A (Vitamin A & D Oint Ud Foilpak) 0.5 ea TOP Q4 [facility] Last Admin: 03/30/17 08:47 Dose: 0.5 ea - Labs Labs: 03/30/17 07:36 03/30/17 07:36 PT 19.5 SECONDS (9.7-12.2) H 03/23/17 14:24 INR 1.7 03/23/17 14:24 APTT 49 SECONDS (21-34) H 03/23/17 14:24 - Constitutional Appears: No Acute Distress, Chronically Ill - Head Exam Head Exam: ATRAUMATIC, NORMAL INSPECTION - Eye Exam Eye Exam: EOMI, Normal appearance - Neck Exam Neck Exam: Normal Inspection. absent: Tenderness - Respiratory Exam Respiratory Exam: Clear to Ausculation Bilateral, NORMAL BREATHING PATTERN - Cardiovascular Exam Cardiovascular Exam: REGULAR RHYTHM, +S1 - GI/Abdominal Exam GI & Abdominal Exam: Soft. absent: Tenderness - Extremities Exam Extremities Exam: Normal Inspection. absent: Tenderness - Neurological Exam Neurological Exam: Awake, CN II-XII Intact - Skin Skin Exam: Dry, Warm Assessment and Plan (1) SIADH (syndrome of inappropriate ADH production) Status: Acute (2) Hyponatremia Status: Acute (3) Elevated PSA Status: Acute (4) HTN (hypertension) Status: Acute (5) UTI (urinary tract infection) due to urinary indwelling Cummings catheter Status: Acute (6) CA prostate, adenoca Status: Acute - Assessment and Plan (Free Text) Plan: Monitor lytes as necessary
[2017-03-30] MEDS: Dextrose 5%/0.45% NS 1,000 ML IV SCH (17:55)
--- NOTE | 2017-03-30 18:57 | PN ---
DATE: CARDIOLOGY FOLLOWUP SUBJECTIVE: The patient is in a much better mental condition. He is alert, denies any chest pain. He is being fed. PHYSICAL EXAMINATION: VITAL SIGNS: Blood pressure 92/53, heart rate 91, temperature 98, and respirations 20. HEENT: Pale conjunctivae. CHEST: Bilateral rhonchi. HEART: S1 and S2, regular. EXTREMITIES: Dressings applied to the left foot. LABORATORY DATA: Hemoglobin and hematocrit 7.9 and 24.1, white count 16,000, platelet count 184,000. SMA-7 is within normal limits except for anion gap of 8 and creatinine 0.6. Calcium is below normal at 7.1. ASSESSMENT: 1. Paroxysmal atrial fibrillation. 2. Improved hypokalemia. 3. Hypocalcemia and hypomagnesemia. 4. Peripheral vascular disease, status post left posterior tibial balloon angioplasty. 5. Coronary artery disease. 6. Anemia. RECOMMENDATIONS: Continue current aspirin 81 mg once day, Plavix 75 mg once a day, IV vancomycin at 1 g daily, IV Zosyn 3.375 g intravenously q. 6 hours, Neutra-Phos 1 pack twice a day, magnesium oxide 400 mg twice a day, Lovenox 30 mg once a day, Lopressor 25 mg twice a day, Flagyl at 500 mg intravenously q. 12 hours, and Crestor 10 mg once a day. Theo Cervantes MD
--- NOTE | 2017-03-30 21:44 | CP.PCM.PN ---
Subjective - Date & Time of Evaluation Date of Evaluation: 03/30/17 Time of Evaluation: 21:43 - Subjective Subjective: AFEBRILE, ON VENTIMASK. MORE AWAKE AND RESPONSIVE. ON iv ANTIBIOTICS. LABS REVIEWED wbc 16.0 WITH DECREASING BANDEMIA. H/H 7.9/24.1 STABLE RENAL FUNCTIONS NORMAL VANCO TROUGH LEVEL 8.5 LOW Objective - Vital Signs/Intake and Output Vital Signs (last 24 hours): Temp Pulse Resp BP Pulse Ox 97.5 F L 99 H 18 92/52 L 100 03/30/17 15:20 03/30/17 15:30 03/30/17 15:20 03/30/17 17:53 03/30/17 15:20 Intake and Output: 03/30/17 03/31/17 18:59 06:59 Intake Total 540 Balance 540 - Medications Medications: Current Medications Acetaminophen (Tylenol 325mg Tab) 650 mg PO Q6H PRN PRN Reason: PAIN, MILD 1-3 Aspirin (Aspirin Chewable) 81 mg PO DAILY [facility] Last Admin: 03/30/17 10:00 Dose: Not Given Budesonide (Pulmicort Respules) 0.5 mg INH RQ12 [facility] Last Admin: 03/30/17 19:31 Dose: 0.5 mg Clopidogrel Bisulfate (Plavix) 75 mg PO DAILY [facility] Enoxaparin Sodium (Lovenox) 30 mg SC DAILY [facility] Last Admin: 03/30/17 10:49 Dose: 30 mg Phenylephrine HCl 30 mg/ (Dextrose) 253 mls @ 10.12 mls/hr IV .Q24H PRN; Protocol; 20 MCG/MIN PRN Reason: TITRATE PER MD ORDER Last Titration: 03/24/17 16:00 Dose: Infused Vancomycin/Sodium Chloride (Vancomycin 1 Gm/Ns 200 Ml) 1 gm in 200 mls @ 167 mls/hr IVPB DAILY [facility] Stop: 04/03/17 10:01 Last Admin: 03/30/17 09:30 Dose: 167 mls/hr Dextrose/Sodium Chloride (Dextrose 5%/0.45% Ns 1000 Ml) 1,000 mls @ 30 mls/hr IV .Q24H [facility] Last Admin: 03/30/17 17:55 Dose: 30 mls/hr Metronidazole (Flagyl) 500 mg in 100 mls @ 100 mls/hr IVPB Q12 [facility] Last Admin: 03/30/17 10:47 Dose: 100 mls/hr Piperacillin Sod/Tazobactam (Sod 3.375 gm/ Sodium Chloride) 100 mls @ 100 mls/ hr IVPB Q6H [facility] Last Admin: 03/30/17 17:49 Dose: 100 mls/hr Ipratropium [place] (Atrovent) 0.5 mg IH RQ6 [facility] Last Admin: 03/30/17 19:31 Dose: 0.5 mg Magnesium Oxide (Mag-Ox) 400 mg NG BID [facility] Last Admin: 03/30/17 17:52 Dose: 400 mg Metoprolol Tartrate (Lopressor) 25 mg PO BID [facility] Last Admin: 03/30/17 17:53 Dose: Not Given Morphine Sulfate (Morphine) 2 mg IVP Q4 PRN PRN Reason: Pain, moderate (4-7) Multivitamins (Hexavitamin) 1 tab PO DAILY [facility] Last Admin: 03/30/17 10:00 Dose: Not Given Potassium Phos/Sodium Phos (Neutra-Phos) 1 pkt PO BID [facility] Last Admin: 03/30/17 17:51 Dose: 1 pkt Rosuvastatin Calcium (Crestor) 10 mg PO HS [facility] Last Admin: 03/29/17 23:36 Dose: Not Given Tamsulosin HCl (Flomax) 0.4 mg PO DAILY [facility] Last Admin: 03/30/17 10:00 Dose: Not Given Vitamin A (Vitamin A & D Oint Ud Foilpak) 0.5 ea TOP Q4 [facility] Last Admin: 03/30/17 17:51 Dose: 0.5 ea - Labs Labs: 03/30/17 07:36 03/30/17 07:36 PT 19.5 SECONDS (9.7-12.2) H 03/23/17 14:24 INR 1.7 03/23/17 14:24 APTT 49 SECONDS (21-34) H 03/23/17 14:24 - Constitutional Appears: No Acute Distress, Cachectic, Chronically Ill - Eye Exam Eye Exam: EOMI, PERRL - ENT Exam ENT Exam: Normal Oropharynx - Neck Exam Neck Exam: Normal Inspection - Respiratory Exam Respiratory Exam: Decreased Breath Sounds - Cardiovascular Exam Cardiovascular Exam: REGULAR RHYTHM, +S1, +S2 - GI/Abdominal Exam GI & Abdominal Exam: Soft, Normal Bowel Sounds - Extremities Exam Extremities Exam: absent: Calf Tenderness, Pedal Edema - Neurological Exam Neurological Exam: Awake, CN II-XII Intact, Oriented x3 - Psychiatric Exam Psychiatric exam: Normal Mood - Skin Skin Exam: Pallor, Warm Assessment and Plan - Assessment and Plan (Free Text) Assessment: ASSESSMENT SEPSIS /LEUKOCYTOSIS ?ASPIRATION S/P - B/L ORCHIECTOMY 03/21/17 S/P TURP- S/P SEPSIS SEC. UTI/CHRONIC Romero +VE MRSA HX . URINARY RETENTION CA OF PROSTATE. HYPONATREMIIA HTN. lEFT FOOT DECUBITUS ULCER-UNSTAGEABLE. /PLAN : ON IV ZOSYN 3.375 MG IV Q6 [facility]. 03/17/17. INCREASE IV VANCOMYCIN TO 1350MG EVERY 24 HOURLY. F/U vANCO TROUGH PRIOR TO THE THIRD DOSE OF ABOVE. ON IV FLAGYL 500 EVERY 12 HOURLY .03/29/17 SPUTUM gRAM STAIN AND CULTURE UA/URINE CULTURE-P . PATIENT WITH [place] CATHETER PER ATTENDING PATIENT DNR/DNI..
--- NOTE | 2017-03-30 23:12 | CP.PCM.PN ---
Subjective - Date & Time of Evaluation Date of Evaluation: 03/30/17 Time of Evaluation: 18:30 - Subjective Subjective: Pt is seen and evaluated today, AFEBRILE, ON VENTIMASK. MORE AWAKE AND RESPONSIVE. ON iv ANTIBIOTICS. Objective - Vital Signs/Intake and Output Vital Signs (last 24 hours): Temp Pulse Resp BP Pulse Ox 97.5 F L 99 H 18 92/52 L 100 03/30/17 15:20 03/30/17 15:30 03/30/17 15:20 03/30/17 17:53 03/30/17 15:20 Intake and Output: 03/30/17 03/31/17 18:59 06:59 Intake Total 540 340 Balance 540 340 - Medications Medications: Current Medications Acetaminophen (Tylenol 325mg Tab) 650 mg PO Q6H PRN PRN Reason: PAIN, MILD 1-3 Aspirin (Aspirin Chewable) 81 mg PO DAILY [facility] Last Admin: 03/30/17 10:00 Dose: Not Given Budesonide (Pulmicort Respules) 0.5 mg INH RQ12 [facility] Last Admin: 03/30/17 19:31 Dose: 0.5 mg Clopidogrel Bisulfate (Plavix) 75 mg PO DAILY [facility] Enoxaparin Sodium (Lovenox) 30 mg SC DAILY [facility] Last Admin: 03/30/17 10:49 Dose: 30 mg Phenylephrine HCl 30 mg/ (Dextrose) 253 mls @ 10.12 mls/hr IV .Q24H PRN; Protocol; 20 MCG/MIN PRN Reason: TITRATE PER MD ORDER Last Titration: 03/24/17 16:00 Dose: Infused Vancomycin/Sodium Chloride (Vancomycin 1 Gm/Ns 200 Ml) 1 gm in 200 mls @ 167 mls/hr IVPB DAILY [facility] Stop: 04/03/17 10:01 Last Admin: 03/30/17 09:30 Dose: 167 mls/hr Dextrose/Sodium Chloride (Dextrose 5%/0.45% Ns 1000 Ml) 1,000 mls @ 30 mls/hr IV .Q24H [facility] Last Admin: 03/30/17 17:55 Dose: 30 mls/hr Metronidazole (Flagyl) 500 mg in 100 mls @ 100 mls/hr IVPB Q12 [facility] Last Admin: 03/30/17 22:00 Dose: 100 mls/hr Piperacillin Sod/Tazobactam (Sod 3.375 gm/ Sodium Chloride) 100 mls @ 100 mls/ hr IVPB Q6H [facility] Last Admin: 03/30/17 17:49 Dose: 100 mls/hr Ipratropium [place] (Atrovent) 0.5 mg IH RQ6 [facility] Last Admin: 03/30/17 19:31 Dose: 0.5 mg Magnesium Oxide (Mag-Ox) 400 mg NG BID [facility] Last Admin: 03/30/17 17:52 Dose: 400 mg Metoprolol Tartrate (Lopressor) 25 mg PO BID [facility] Last Admin: 03/30/17 17:53 Dose: Not Given Morphine Sulfate (Morphine) 2 mg IVP Q4 PRN PRN Reason: Pain, moderate (4-7) Multivitamins (Hexavitamin) 1 tab PO DAILY [facility] Last Admin: 03/30/17 10:00 Dose: Not Given Potassium Phos/Sodium Phos (Neutra-Phos) 1 pkt PO BID [facility] Last Admin: 03/30/17 17:51 Dose: 1 pkt Rosuvastatin Calcium (Crestor) 10 mg PO HS [facility] Last Admin: 03/30/17 22:00 Dose: 10 mg Tamsulosin HCl (Flomax) 0.4 mg PO DAILY [facility] Last Admin: 03/30/17 10:00 Dose: Not Given Vitamin A (Vitamin A & D Oint Ud Foilpak) 0.5 ea TOP Q4 [facility] Last Admin: 03/30/17 22:01 Dose: 0.5 ea - Labs Labs: 03/30/17 07:36 03/30/17 07:36 PT 19.5 SECONDS (9.7-12.2) H 03/23/17 14:24 INR 1.7 03/23/17 14:24 APTT 49 SECONDS (21-34) H 03/23/17 14:24 - Constitutional Appears: No Acute Distress - Head Exam Head Exam: ATRAUMATIC, NORMAL INSPECTION, NORMOCEPHALIC - Eye Exam Eye Exam: EOMI, Normal appearance, PERRL Pupil Exam: NORMAL ACCOMODATION, PERRL - Respiratory Exam Respiratory Exam: Clear to Ausculation Bilateral, NORMAL BREATHING PATTERN - Cardiovascular Exam Cardiovascular Exam: REGULAR RHYTHM, +S1, +S2. absent: Murmur - GI/Abdominal Exam GI & Abdominal Exam: Soft, Normal Bowel Sounds. absent: Tenderness Assessment and Plan (1) CA prostate, adenoca Status: Acute (2) Sepsis Assessment & Plan: LABS REVIEWED wbc 16.0 WITH DECREASING BANDEMIA. H/H 7.9/24.1 STABLE RENAL FUNCTIONS NORMAL VANCO TROUGH LEVEL 8.5 LOW Status: Acute (3) UTI (urinary tract infection) Status: Acute (4) Acute urinary retention Status: Acute (5) CAD (coronary artery disease) Status: Acute (6) Hyponatremia Status: Acute (7) S/P TURP (status post transurethral resection of prostate) Status: Acute (8) Malnourished Status: Acute (9) S/P orchiectomy Status: Acute (10) PVD (peripheral vascular disease) Status: Acute
--- NOTE | 2017-03-31 00:30 | PCM.URO ---
Urology Progress Note - General General: No Complaints, NPO (pt is not being fed due to poss swallowing abnormality) - Subjective Abdominal Pain: No Flank Pain: No Nausea: No Vomiting: No Voiding Well: Yes (incontinent) Dysuria: No Hematuria: No Good Stream: Yes Dsypnea: No Chest Pain: No Fever & Chills: No - Objective Lab Studies: Reviewed Lab Results Last 24 Hours: Laboratory Results - last 24 hr 03/30/17 03/30/17 03/30/17 07:36 07:36 07:48 WBC 16.0 H RBC 2.80 L Hgb 7.9 L Hct 24.1 L MCV 86.2 MCH 28.2 MCHC 32.8 L RDW 15.6 H Plt Count 284 MPV 7.3 Neut % (Auto) 87.3 H Lymph % (Auto) 7.1 L Roberts % (Auto) 5.3 Eos % (Auto) 0.1 Baso % (Auto) 0.2 Neut # 13.9 H Lymph # 1.1 Roberts # 0.8 Eos # 0.0 Baso # 0.0 Neutrophils % (Manual) 79 H Band Neutrophils % 12 H* Lymphocytes % (Manual) 4 L Reactive Lymphs % 1 H Monocytes % (Manual) 3 Basophils % (Manual) 1 Platelet Estimate Normal Hypochromasia (manual) Slight Basophilic Stippling Slight Anisocytosis (manual) Slight Ovalocytes Slight Sodium 135 Potassium 3.7 Chloride 104 Carbon Dioxide 27 Anion Gap 8 L BUN 16 Creatinine 0.6 L Est GFR ( Amer) > 60 Est GFR (Non-Af Amer) > 60 Random Glucose 80 Calcium 7.1 L Urine Color Yellow Urine Clarity Hazy Urine pH 5.0 Ur Specific [place] 1.024 Urine Protein 1+ H Urine Glucose (UA) Normal Urine Ketones Trace Urine Blood 2+ H Urine Nitrate Negative Urine Bilirubin Negative Urine Urobilinogen Normal Ur Leukocyte Esterase 2+ H Urine WBC (Auto) 65 H Urine RBC (Auto) 8 H Ur Squamous Epith Cells 1 Urine Bacteria Rare Urine Yeast (Budding) Few H Vancomycin Trough 03/30/17 11:44 WBC RBC Hgb Hct MCV MCH MCHC RDW Plt Count MPV Neut % (Auto) Lymph % (Auto) Roberts % (Auto) Eos % (Auto) Baso % (Auto) Neut # Lymph # Roberts # Eos # Baso # Neutrophils % (Manual) Band Neutrophils % Lymphocytes % (Manual) Reactive Lymphs % Monocytes % (Manual) Basophils % (Manual) Platelet Estimate Hypochromasia (manual) Basophilic Stippling Anisocytosis (manual) Ovalocytes Sodium Potassium Chloride Carbon Dioxide Anion Gap BUN Creatinine Est GFR ( Amer) Est GFR (Non-Af Amer) Random Glucose Calcium Urine Color Urine Clarity Urine pH Ur Specific [place] Urine Protein Urine Glucose (UA) Urine Ketones Urine Blood Urine Nitrate Urine Bilirubin Urine Urobilinogen Ur Leukocyte Esterase Urine WBC (Auto) Urine RBC (Auto) Ur Squamous Epith Cells Urine Bacteria Urine Yeast (Budding) Vancomycin Trough 8.5 Intake & Output: Intake & Output 03/30/17 03/30/17 03/31/17 06:59 18:59 06:59 Intake Total 180 540 340 Output Total 100 Balance 80 540 340 Intake: Intake, IV Amount 180 540 240 Left Subclavian Proximal 180 540 240 Port Oral 100 Output: Urine 100 Condom 100 Vital Signs: Vital Signs - 24 hr 03/30/17 03/30/17 03/30/17 03:35 05:15 07:00 Temperature 97.6 F 98 F Pulse Rate 81 81 91 H Respiratory 20 20 Rate Blood Pressure 97/46 L 92/53 L O2 Sat by Pulse 97 Oximetry 03/30/17 03/30/17 03/30/17 07:47 15:20 15:30 Temperature 97.5 F L Pulse Rate 88 99 H 99 H Respiratory 18 Rate Blood Pressure 95/52 L O2 Sat by Pulse 100 Oximetry 03/30/17 17:53 Temperature Pulse Rate Respiratory Rate Blood Pressure 92/52 L O2 Sat by Pulse Oximetry - Physical Exam Abdominal Exam: Soft, Non-Tender, Non-Distended Wound: Clean, Healing Well Back: No CVA Tenderness Urine Color: Clear, Yellow - Male Phallus: Normal Testes: Atrophy: Bilateral (absent , post orchiectomy) - Plan Additional Information: Imp: metastatic prostate ca. stable urologically - Date & Time of Note Date: 03/30/17 Time: 11:35
[2017-03-31] MEDS: Piperacillin/Tazobact 3.375 GM in Sodium Chloride 0.9% 100 ML IVPB SCH ×4 (00:40→17:57)
[2017-03-31] MEDS: Vitamins A & D Oint UD Foilpak TOP SCH ×6 (00:40→20:30)
[2017-03-31] MEDS: Ipratropium 0.02% Inhal Soln (0.5 mg/2.5 ml) UD IH SCH ×3 (01:32→19:13)
[2017-03-31] MEDS: Budesonide 0.5 mg/2 ml Inhal Susp UD INH SCH ×2 (08:21→19:13)
--- NOTE | 2017-03-31 08:47 | CP.PCM.PN ---
Subjective - Date & Time of Evaluation Date of Evaluation: 03/31/17 Time of Evaluation: 08:00 - Subjective Subjective: Patient is AAO x 3 and NAD resting comfortably in bed. 1:1 at bedside. congested , coughing, wheezing, mild resp distress, Denies N/V/F/C/CP/SOB/D/posterior calf pain. Per primary plan for comfort care at this time. Objective - Vital Signs/Intake and Output Vital Signs (last 24 hours): Temp Pulse Resp BP Pulse Ox 97.9 F 96 H 18 95/63 L 94 L 03/31/17 08:25 03/31/17 08:25 03/31/17 08:25 03/30/17 23:15 03/31/17 08:25 Intake and Output: 03/31/17 03/31/17 06:59 18:59 Intake Total 340 430 Output Total 0 Balance 340 430 - Medications Medications: Current Medications Acetaminophen (Tylenol 325mg Tab) 650 mg PO Q6H PRN PRN Reason: PAIN, MILD 1-3 Aspirin (Aspirin Chewable) 81 mg PO DAILY [facility] Last Admin: 03/30/17 10:00 Dose: Not Given Budesonide (Pulmicort Respules) 0.5 mg INH RQ12 [facility] Last Admin: 03/31/17 08:21 Dose: Not Given Clopidogrel Bisulfate (Plavix) 75 mg PO DAILY [facility] Enoxaparin Sodium (Lovenox) 30 mg SC DAILY [facility] Last Admin: 03/30/17 10:49 Dose: 30 mg Phenylephrine HCl 30 mg/ (Dextrose) 253 mls @ 10.12 mls/hr IV .Q24H PRN; Protocol; 20 MCG/MIN PRN Reason: TITRATE PER MD ORDER Last Titration: 03/24/17 16:00 Dose: Infused Dextrose/Sodium Chloride (Dextrose 5%/0.45% Ns 1000 Ml) 1,000 mls @ 30 mls/hr IV .Q24H [facility] Last Admin: 03/30/17 17:55 Dose: 30 mls/hr Metronidazole (Flagyl) 500 mg in 100 mls @ 100 mls/hr IVPB Q12 [facility] Last Admin: 03/30/17 22:00 Dose: 100 mls/hr Piperacillin Sod/Tazobactam (Sod 3.375 gm/ Sodium Chloride) 100 mls @ 100 mls/ hr IVPB Q6H [facility] Last Admin: 03/31/17 06:20 Dose: 100 mls/hr Vancomycin HCl 1.35 gm/ Sodium (Chloride) 500 mls @ 300 mls/hr IVPB Q24H [facility] Ipratropium [place] (Atrovent) 0.5 mg IH RQ6 [facility] Last Admin: 03/31/17 08:21 Dose: 0.5 mg Magnesium Oxide (Mag-Ox) 400 mg NG BID [facility] Last Admin: 03/30/17 17:52 Dose: 400 mg Metoprolol Tartrate (Lopressor) 25 mg PO BID [facility] Last Admin: 03/30/17 17:53 Dose: Not Given Morphine Sulfate (Morphine) 2 mg IVP Q4 PRN PRN Reason: Pain, moderate (4-7) Multivitamins (Hexavitamin) 1 tab PO DAILY [facility] Last Admin: 03/30/17 10:00 Dose: Not Given Potassium Phos/Sodium Phos (Neutra-Phos) 1 pkt PO BID [facility] Last Admin: 03/30/17 17:51 Dose: 1 pkt Rosuvastatin Calcium (Crestor) 10 mg PO HS [facility] Last Admin: 03/30/17 22:00 Dose: 10 mg Tamsulosin HCl (Flomax) 0.4 mg PO DAILY [facility] Last Admin: 03/30/17 10:00 Dose: Not Given Vitamin A (Vitamin A & D Oint Ud Foilpak) 0.5 ea TOP Q4 [facility] Last Admin: 03/31/17 04:24 Dose: 0.5 ea - Labs Labs: 03/30/17 07:36 03/30/17 07:36 PT 19.5 SECONDS (9.7-12.2) H 03/23/17 14:24 INR 1.7 03/23/17 14:24 APTT 49 SECONDS (21-34) H 03/23/17 14:24 - Constitutional Appears: No Acute Distress - Head Exam Head Exam: ATRAUMATIC, NORMAL INSPECTION, NORMOCEPHALIC - Eye Exam Eye Exam: EOMI, Normal appearance, PERRL Pupil Exam: NORMAL ACCOMODATION, PERRL - Respiratory Exam Respiratory Exam: Accessory Muscle Use, Rales, Rhonchi - Cardiovascular Exam Cardiovascular Exam: REGULAR RHYTHM, +S1, +S2. absent: Murmur - GI/Abdominal Exam GI & Abdominal Exam: Soft, Normal Bowel Sounds. absent: Tenderness Assessment and Plan (1) CA prostate, adenoca Status: Acute (2) Sepsis Status: Acute (3) UTI (urinary tract infection) Status: Acute (4) Acute urinary retention Status: Acute (5) CAD (coronary artery disease) Status: Acute (6) Hyponatremia Status: Acute (7) S/P TURP (status post transurethral resection of prostate) Status: Acute (8) Malnourished Status: Acute (9) S/P orchiectomy Status: Acute (10) PVD (peripheral vascular disease) Status: Acute
[2017-03-31] MEDS: Magnesium Oxide 400 mg Tab UD NG SCH ×2 (09:28→17:56)
[2017-03-31] MEDS: Multiple Vitamins Tab PO SCH (09:28)
[2017-03-31] MEDS: Enoxaparin 30 mg Syringe SC SCH (09:28)
[2017-03-31] MEDS: VANCOMYCIN IVPB SCH (09:29)
[2017-03-31] MEDS: SODIUM CHLORIDE 0.9% IVPB SCH (09:29)
[2017-03-31] MEDS: Potassium & Sodium Phosphate PO SCH ×2 (10:00→17:56)
--- NOTE | 2017-03-31 11:25 | CP.PCM.PN ---
Subjective - Date & Time of Evaluation Date of Evaluation: 03/31/17 Time of Evaluation: 11:21 - Subjective Subjective: Podiatry Progress Note- Dr. Celeste 81 y/o male pt seen at bedside concerning unstageable decubitus ulcerations to left heel & left lateral 5th metatarsal head. Pt is seen resting in bed at time of visit. Patient is AAO x 3 and NAD resting comfortably in bed. 1:1 at bedside. Offloading heel boots in place BL. Denies any further pedal complaints at this time. Denies N/V/F/C/CP/SOB/D/posterior calf pain. Per primary plan for comfort care at this time. Objective - Vital Signs/Intake and Output Vital Signs (last 24 hours): Temp Pulse Resp BP Pulse Ox 97.9 F 96 H 18 110/54 L 94 L 03/31/17 08:25 03/31/17 08:25 03/31/17 08:25 03/31/17 09:28 03/31/17 08:25 Intake and Output: 03/31/17 03/31/17 06:59 18:59 Intake Total 340 430 Output Total 0 Balance 340 430 - Medications Medications: Current Medications Acetaminophen (Tylenol 325mg Tab) 650 mg PO Q6H PRN PRN Reason: PAIN, MILD 1-3 Aspirin (Aspirin Chewable) 81 mg PO DAILY [facility] Last Admin: 03/31/17 09:28 Dose: 81 mg Budesonide (Pulmicort Respules) 0.5 mg INH RQ12 [facility] Last Admin: 03/31/17 08:21 Dose: Not Given Clopidogrel Bisulfate (Plavix) 75 mg PO DAILY [facility] Last Admin: 03/31/17 09:28 Dose: 75 mg Enoxaparin Sodium (Lovenox) 30 mg SC DAILY [facility] Last Admin: 03/31/17 09:28 Dose: 30 mg Phenylephrine HCl 30 mg/ (Dextrose) 253 mls @ 10.12 mls/hr IV .Q24H PRN; Protocol; 20 MCG/MIN PRN Reason: TITRATE PER MD ORDER Last Titration: 03/24/17 16:00 Dose: Infused Dextrose/Sodium Chloride (Dextrose 5%/0.45% Ns 1000 Ml) 1,000 mls @ 30 mls/hr IV .Q24H [facility] Last Admin: 03/30/17 17:55 Dose: 30 mls/hr Metronidazole (Flagyl) 500 mg in 100 mls @ 100 mls/hr IVPB Q12 [facility] Last Admin: 03/30/17 22:00 Dose: 100 mls/hr Piperacillin Sod/Tazobactam (Sod 3.375 gm/ Sodium Chloride) 100 mls @ 100 mls/ hr IVPB Q6H [facility] Last Admin: 03/31/17 06:20 Dose: 100 mls/hr Vancomycin HCl 1.35 gm/ Sodium (Chloride) 500 mls @ 300 mls/hr IVPB Q24H [facility] Last Admin: 03/31/17 09:29 Dose: 300 mls/hr Ipratropium [place] (Atrovent) 0.5 mg IH RQ6 [facility] Last Admin: 03/31/17 08:21 Dose: 0.5 mg Magnesium Oxide (Mag-Ox) 400 mg NG BID [facility] Last Admin: 03/31/17 09:28 Dose: 400 mg Metoprolol Tartrate (Lopressor) 25 mg PO BID [facility] Last Admin: 03/31/17 09:28 Dose: 25 mg Morphine Sulfate (Morphine) 2 mg IVP Q4 PRN PRN Reason: Pain, moderate (4-7) Multivitamins (Hexavitamin) 1 tab PO DAILY [facility] Last Admin: 03/31/17 09:28 Dose: 1 tab Potassium Phos/Sodium Phos (Neutra-Phos) 1 pkt PO BID [facility] Last Admin: 03/30/17 17:51 Dose: 1 pkt Rosuvastatin Calcium (Crestor) 10 mg PO HS [facility] Last Admin: 03/30/17 22:00 Dose: 10 mg Tamsulosin HCl (Flomax) 0.4 mg PO DAILY [facility] Last Admin: 03/31/17 09:28 Dose: 0.4 mg Vitamin A (Vitamin A & D Oint Ud Foilpak) 0.5 ea TOP Q4 [facility] Last Admin: 03/31/17 09:29 Dose: 0.5 ea - Labs Labs: 03/30/17 07:36 03/30/17 07:36 PT 19.5 SECONDS (9.7-12.2) H 03/23/17 14:24 INR 1.7 03/23/17 14:24 APTT 49 SECONDS (21-34) H 03/23/17 14:24 - Constitutional Appears: Well, Non-toxic, No Acute Distress - Extremities Exam Additional comments: B/L lower ext exam: Vasc: Non-palpable DP/PT pulses B/L, cfl < 3sec to all digits, skin temp wnl BL , no edema appreciated Neuro: Gross pedal sensation is intact B/L Derm: unstageable decubitus ulceration to heel measuring 3cm x 4cm with no drainage, neg ptb, neg fluctuance, no malodor. No signs infection, there is also an ulceration noted to lateral aspect of 5th metatarsal head measuring 1.2cmx 1.0cm with fibrous base, + probe to bone, no purulence today, neg malodor , neg cellulitis Ortho: tenderness is noted to palpation to heel at the site of ulceration, slight tenderness elicited to palpation to lateral 5th metatarsal head - Neurological Exam Neurological Exam: Alert, Awake, Oriented x3 - Psychiatric Exam Psychiatric exam: Normal Affect, Normal Mood Assessment and Plan - Assessment and Plan (Free Text) Assessment: 81 y/o male w/ unstageable decubitus ulcerations to left heel and left lateral 5th metatarsal head Plan: Patient seen and evaluated at bedside with attending Dr. Celeste Afebrile WBC 16.0 from 17.2 Continue IV abx per ID No plan for surgical intervention at this time Wounds dressed with medihoney, Telfa and DSD Podiatry will continue to follow while patient in house
[2017-03-31] MEDS: metroNIDAZOLE IV 500 mg/100 ml 500 MG/100 ML BAG IVPB SCH ×2 (12:00→22:06)
--- NOTE | 2017-03-31 14:25 | PN ---
DATE: FOLLOWUP SUBJECTIVE: The patient is awake. He knows he is in [facility]. He denies any chest pain or shortness of breath. PHYSICAL EXAMINATION: VITAL SIGNS: Blood pressure 110/54, heart rate 96, temperature 97.9, respirations 18. HEENT: Pale conjunctivae. CHEST: Bilateral rhonchi. HEART: S1 and S2 regular. EXTREMITIES: Dressing is applied to the left foot. ASSESSMENT: 1. Paroxysmal atrial fibrillation. 2. Peripheral vascular disease, status post left posterior tibial artery balloon angioplasty. 3. Hypocalcemia and hypomagnesemia. 4. Coronary artery disease. 5. Anemia. RECOMMENDATIONS: Continue aspirin 81 mg once a day, Crestor 10 mg once a day, Flagyl 500 mg intravenously q. 12 hours, metoprolol 25 mg twice a day, Plavix 75 mg once a day and vancomycin at 1.35 g intravenously daily. Theo Cervantes MD
[2017-03-31] MEDS: Dextrose 5%/0.45% NS 1,000 ML IV SCH (17:58)
--- NOTE | 2017-03-31 22:12 | CP.PCM.PN ---
Subjective - Date & Time of Evaluation Date of Evaluation: 03/31/17 Time of Evaluation: 22:12 - Subjective Subjective: AFEBRILE, lESS SHORT OF BREATH. MORE TALKATIVE AND AWAKE TODAY. STATES HE IS THIRSTY. INCONTINENT OF URINE. LABS REVIEWED. URINE CULTURE POSITIVE FOR YEAST. (CATHETHER OUT ) CXR 03/29/17 COPD SMALL RTEFFUSION B/L CALCIFIED PLAQUES OF EXPOSURE TO ASBESTOSIS. Objective - Vital Signs/Intake and Output Vital Signs (last 24 hours): Temp Pulse Resp BP Pulse Ox 97.9 F 56 L 20 104/55 L 99 03/31/17 15:00 03/31/17 15:00 03/31/17 15:00 03/31/17 17:56 03/31/17 15:00 Intake and Output: 03/31/17 04/01/17 18:59 06:59 Intake Total 430 Output Total 0 Balance 430 - Medications Medications: Current Medications Acetaminophen (Tylenol 325mg Tab) 650 mg PO Q6H PRN PRN Reason: PAIN, MILD 1-3 Aspirin (Aspirin Chewable) 81 mg PO DAILY [facility] Last Admin: 03/31/17 09:28 Dose: 81 mg Budesonide (Pulmicort Respules) 0.5 mg INH RQ12 [facility] Last Admin: 03/31/17 19:13 Dose: 0.5 mg Clopidogrel Bisulfate (Plavix) 75 mg PO DAILY [facility] Last Admin: 03/31/17 09:28 Dose: 75 mg Enoxaparin Sodium (Lovenox) 30 mg SC DAILY [facility] Last Admin: 03/31/17 09:28 Dose: 30 mg Phenylephrine HCl 30 mg/ (Dextrose) 253 mls @ 10.12 mls/hr IV .Q24H PRN; Protocol; 20 MCG/MIN PRN Reason: TITRATE PER MD ORDER Last Titration: 03/24/17 16:00 Dose: Infused Dextrose/Sodium Chloride (Dextrose 5%/0.45% Ns 1000 Ml) 1,000 mls @ 30 mls/hr IV .Q24H [facility] Last Admin: 03/31/17 17:58 Dose: 30 mls/hr Metronidazole (Flagyl) 500 mg in 100 mls @ 100 mls/hr IVPB Q12 [facility] Last Admin: 03/31/17 22:06 Dose: 100 mls/hr Vancomycin HCl 1.35 gm/ Sodium (Chloride) 500 mls @ 300 mls/hr IVPB Q24H [facility] Last Admin: 03/31/17 09:29 Dose: 300 mls/hr Piperacillin Sod/Tazobactam Sod (Zosyn 3.375 Gm Iv Premix) 3.375 gm in 50 mls @ 100 mls/hr IVPB Q6H [facility] Ipratropium [place] (Atrovent) 0.5 mg IH RQ6 [facility] Last Admin: 03/31/17 19:13 Dose: 0.5 mg Magnesium Oxide (Mag-Ox) 400 mg NG BID [facility] Last Admin: 03/31/17 17:56 Dose: 400 mg Metoprolol Tartrate (Lopressor) 25 mg PO BID [facility] Last Admin: 03/31/17 17:56 Dose: 25 mg Morphine Sulfate (Morphine) 2 mg IVP Q4 PRN PRN Reason: Pain, moderate (4-7) Multivitamins (Hexavitamin) 1 tab PO DAILY [facility] Last Admin: 03/31/17 09:28 Dose: 1 tab Potassium Phos/Sodium Phos (Neutra-Phos) 1 pkt PO BID [facility] Last Admin: 03/31/17 17:56 Dose: 1 pkt Rosuvastatin Calcium (Crestor) 10 mg PO HS [facility] Last Admin: 03/31/17 22:06 Dose: 10 mg Tamsulosin HCl (Flomax) 0.4 mg PO DAILY [facility] Last Admin: 03/31/17 09:28 Dose: 0.4 mg Vitamin A (Vitamin A & D Oint Ud Foilpak) 0.5 ea TOP Q4 [facility] Last Admin: 03/31/17 17:57 Dose: 0.5 ea - Labs Labs: 03/30/17 07:36 03/30/17 07:36 PT 19.5 SECONDS (9.7-12.2) H 03/23/17 14:24 INR 1.7 03/23/17 14:24 APTT 49 SECONDS (21-34) H 03/23/17 14:24 - Constitutional Appears: No Acute Distress, Cachectic, Chronically Ill - Head Exam Head Exam: NORMAL INSPECTION - Eye Exam Eye Exam: EOMI, PERRL - ENT Exam ENT Exam: Mucous Membranes Dry (CHEILITES ANGLES OF THE MOUTH) - Respiratory Exam Respiratory Exam: Decreased Breath Sounds - Cardiovascular Exam Cardiovascular Exam: REGULAR RHYTHM, +S1, +S2 - GI/Abdominal Exam GI & Abdominal Exam: Soft, Normal Bowel Sounds - Extremities Exam Extremities Exam: absent: Calf Tenderness, Pedal Edema (B/L ) - Neurological Exam Neurological Exam: Awake - Psychiatric Exam Psychiatric exam: Normal Mood - Skin Skin Exam: Normal Color, Warm Assessment and Plan - Assessment and Plan (Free Text) Plan: ASSESSMENT SEPSIS /LEUKOCYTOSIS ?CYSTITIS S/P - B/L ORCHIECTOMY 03/21/17 S/P TURP- S/P SEPSIS SEC. UTI/CHRONIC Romero +VE MRSA. HX . URINARY RETENTION CA OF PROSTATE. HYPONATREMIIA HTN. lEFT FOOT DECUBITUS ULCER-UNSTAGEABLE. /PLAN : ON IV ZOSYN 3.375 MG IV Q6 HRLY. 03/17/17. ON IV VANCOMYCIN TO 1350MG EVERY 24 HOURLY. F/U vANCO TROUGH PRIOR TO THE THIRD DOSE OF ABOVE. ON IV FLAGYL 500 EVERY 12 HOURLY .03/29/17 CBC, BMP IN AM .MVI SUSPENSION 5ML PO OD DAILY PER ATTENDING PATIENT DNR/DNI..
[2017-04-01] MEDS: Piperacill/Tazo 3.375gm in Dex 3.375 GM/50 ML BAG IVPB SCH ×4 (00:17→18:22)
[2017-04-01] MEDS: Vitamins A & D Oint UD Foilpak TOP SCH ×6 (00:17→23:10)
[2017-04-01] MEDS: Dextrose 5%/0.45% NS 1,000 ML IV SCH ×2 (00:19→18:37)
[2017-04-01] MEDS: Ipratropium 0.02% Inhal Soln (0.5 mg/2.5 ml) UD IH SCH ×4 (02:10→20:23)
[2017-04-01 07:43] LABS: BASO # 0.1 K/uL (0.0-0.2); EOS % 0.3 % (0.0-4.0); HEMOGLOBIN 7.8 g/dL (12.0-18.0); LYMPH # 0.8 K/uL (1.0-4.3); LYMPH % 7.4 % (20.0-40.0); MEAN CELL VOLUME 84.9 fL (80.0-94.0); MEAN CORPUSCULAR HEMOGLOBIN 28.8 pg (27.0-31.0); MEAN CORPUSCULAR HGB CONC 33.9 g/dL (33.0-37.0); MEAN PLATELET VOLUME 7.6 fL (7.2-11.7); MONO # 0.6 K/uL (0.0-0.8); MONO % 5.4 % (0.0-10.0); NEUT # 8.8 K/uL (1.8-7.0); NEUT % 85.9 % (50.0-75.0); PLATELET COUNT 231 K/uL (130-400); RBC 2.69 Mil/uL (4.40-5.90); RED CELL DISTRIBUTION WIDTH 14.8 % (11.5-14.5); WHITE BLOOD COUNT 10.3 K/uL (4.8-10.8)
[2017-04-01] MEDS: Budesonide 0.5 mg/2 ml Inhal Susp UD INH SCH ×2 (07:58→20:23)
[2017-04-01 08:08] LABS: BLOOD UREA NITROGEN 9 mg/dL (9-20); CALCIUM 7.5 mg/dl (8.6-10.4); GFR AFRICAN-AMERICAN > 60; GFR NON-AFRICAN AMERICAN > 60
[2017-04-01] MEDS: VANCOMYCIN IVPB SCH (09:35)
[2017-04-01] MEDS: SODIUM CHLORIDE 0.9% IVPB SCH (09:35)
[2017-04-01 09:43] LABS: MAGNESIUM 1.7 mg/dL (1.6-2.3)
[2017-04-01] MEDS: Enoxaparin 30 mg Syringe SC SCH (09:59)
[2017-04-01] MEDS: Potassium & Sodium Phosphate PO SCH ×2 (10:00→18:22)
[2017-04-01] MEDS: Magnesium Oxide 400 mg Tab UD NG SCH ×2 (10:00→18:22)
[2017-04-01] MEDS: Multiple Vitamins Tab PO SCH (10:00)
[2017-04-01 12:07] LABS: BANDS 2 % (0-2); LYMPHOCYTE 7 % (20-40); MONOCYTE 4 % (0-10); NEUTROPHIL 87 % (50-75); PLATELET ESTIMATE NORMAL (NORMAL); TOTAL CELLS COUNTED 100
[2017-04-01 12:08] LABS: ANISOCYTOSIS SLIGHT; HYPOCHROMIC SLIGHT; POLYCHROMIC SLIGHT; TOXIC GRANULATION PRESENT
[2017-04-01 12:12] LABS: LARGE PLATELETS PRESENT
[2017-04-01 12:14] LABS: OVALOCYTES SLIGHT; POIKILOCYTOSIS SLIGHT
[2017-04-01] MEDS: metroNIDAZOLE IV 500 mg/100 ml 500 MG/100 ML BAG IVPB SCH ×2 (12:20→21:59)
--- NOTE | 2017-04-01 14:47 | PN ---
DATE: FOLLOWUP SUBJECTIVE: The patient is awake, oriented to place. He is currently on Liquid diet. Mildly tachypneic. PHYSICAL EXAMINATION: VITAL SIGNS: Blood pressure 105/63, heart rate 92, temperature 98.3, respirations 18. HEENT: Pale conjunctivae. CHEST: Bilateral coarse crackles basally. HEART: S1 and S2 regular. EXTREMITIES: Dressing is applied to the left foot. LABORATORY DATA: Hemoglobin and hematocrit 7.8 and 22.8. White count and platelet count are within normal limits. Today's potassium is 2.8, calcium is 7.5 and magnesium 1.7. ASSESSMENT: 1. Paroxysmal atrial fibrillation. 2. Consider underlying pneumonia versus aspiration. 3. Anemia. 4. Hypokalemia. 5. Peripheral vascular disease, status post left posterior tibial artery balloon angioplasty. 6. Hypocalcemia. RECOMMENDATIONS: Continue aspirin 81 mg once a day, Crestor 10 mg once a day, Flagyl 500 mg intravenously q. 12 hours, Lopressor 25 mg twice a day, magnesium oxide 400 mg twice a day, Neutra-Phos 1 packet twice a day, Plavix 75 mg once a day, KCl total 60 mEq intravenously was administered today. Consider followup of BMP in a.m. and placing the patient on K-Dur at 20 mEq daily. Theo Cervantes MD
[2017-04-01] MEDS ORDERED: MethylPREDNISolone 40 mg Vial IVP STA (18:04)
[2017-04-01] MEDS ORDERED: Albuterol-Ipratrop 3 mg / 0.5 (3 ml) UD INH STA (18:05)
--- NOTE | 2017-04-01 22:24 | CP.PCM.PN ---
Subjective - Date & Time of Evaluation Date of Evaluation: 04/01/17 Time of Evaluation: 22:24 - Subjective Subjective: AFEBRILE, CHOKING ON LIQUIDS REPORTED BY RN WEAK BUT RESPONSIVE. ON iv ANTIBIOTICS DISCUSSED W STAFF.. LABS REVIEWED wbc IMPROVING WITH DECREASING BANDEMIA RENAL FUNCTIONS NORMAL Objective - Vital Signs/Intake and Output Vital Signs (last 24 hours): Temp Pulse Resp BP Pulse Ox 99 F 96 H 20 121/64 95 04/01/17 15:41 04/01/17 15:41 04/01/17 15:41 04/01/17 18:23 04/01/17 15:41 Intake and Output: 04/01/17 04/02/17 18:59 06:59 Intake Total 675 Output Total 100 Balance 575 - Medications Medications: Current Medications Acetaminophen (Tylenol 325mg Tab) 650 mg PO Q6H PRN PRN Reason: PAIN, MILD 1-3 Aspirin (Aspirin Chewable) 81 mg PO DAILY [facility] Last Admin: 04/01/17 10:00 Dose: 81 mg Budesonide (Pulmicort Respules) 0.5 mg INH RQ12 [facility] Last Admin: 04/01/17 20:23 Dose: 0.5 mg Clopidogrel Bisulfate (Plavix) 75 mg PO DAILY [facility] Last Admin: 04/01/17 12:37 Dose: 75 mg Enoxaparin Sodium (Lovenox) 30 mg SC DAILY [facility] Last Admin: 04/01/17 09:59 Dose: 30 mg Phenylephrine HCl 30 mg/ (Dextrose) 253 mls @ 10.12 mls/hr IV .Q24H PRN; Protocol; 20 MCG/MIN PRN Reason: TITRATE PER MD ORDER Last Titration: 03/24/17 16:00 Dose: Infused Metronidazole (Flagyl) 500 mg in 100 mls @ 100 mls/hr IVPB Q12 [facility] Last Admin: 04/01/17 21:59 Dose: 100 mls/hr Vancomycin HCl 1.35 gm/ Sodium (Chloride) 500 mls @ 300 mls/hr IVPB Q24H [facility] Last Admin: 04/01/17 09:35 Dose: 300 mls/hr Piperacillin Sod/Tazobactam Sod (Zosyn 3.375 Gm Iv Premix) 3.375 gm in 50 mls @ 100 mls/hr IVPB Q6H [facility] Last Admin: 04/01/17 18:22 Dose: 100 mls/hr Dextrose/Sodium Chloride (Dextrose 5%/0.45% Ns 1000 Ml) 1,000 mls @ 65 mls/hr IV .[id number] [facility] Last Admin: 04/01/17 18:37 Dose: 65 mls/hr Ipratropium [place] (Atrovent) 0.5 mg IH RQ6 [facility] Last Admin: 04/01/17 20:23 Dose: 0.5 mg Magnesium Oxide (Mag-Ox) 400 mg NG BID [facility] Last Admin: 04/01/17 18:22 Dose: 400 mg Metoprolol Tartrate (Lopressor) 25 mg PO BID [facility] Last Admin: 04/01/17 18:23 Dose: 25 mg Morphine Sulfate (Morphine) 2 mg IVP Q4 PRN PRN Reason: Pain, moderate (4-7) Multivitamins (Hexavitamin) 1 tab PO DAILY [facility] Last Admin: 04/01/17 10:00 Dose: 1 tab Potassium Phos/Sodium Phos (Neutra-Phos) 1 pkt PO BID [facility] Last Admin: 04/01/17 18:22 Dose: 1 pkt Rosuvastatin Calcium (Crestor) 10 mg PO HS [facility] Last Admin: 04/01/17 21:59 Dose: 10 mg Tamsulosin HCl (Flomax) 0.4 mg PO DAILY [facility] Last Admin: 04/01/17 10:00 Dose: 0.4 mg Vitamin A (Vitamin A & D Oint Ud Foilpak) 0.5 ea TOP Q4 [facility] Last Admin: 04/01/17 16:30 Dose: 0.5 ea - Labs Labs: 04/01/17 06:56 04/01/17 06:56 PT 19.5 SECONDS (9.7-12.2) H 03/23/17 14:24 INR 1.7 03/23/17 14:24 APTT 49 SECONDS (21-34) H 03/23/17 14:24 - Constitutional Appears: No Acute Distress, Cachectic, Chronically Ill - Head Exam Head Exam: NORMAL INSPECTION - Eye Exam Eye Exam: EOMI, PERRL - ENT Exam ENT Exam: Normal Oropharynx - Neck Exam Neck Exam: Normal Inspection - Respiratory Exam Respiratory Exam: Decreased Breath Sounds - Cardiovascular Exam Cardiovascular Exam: REGULAR RHYTHM, +S1, +S2 - GI/Abdominal Exam GI & Abdominal Exam: Soft, Normal Bowel Sounds - Extremities Exam Extremities Exam: Pedal Edema (B/L VENODYNE.). absent: Calf Tenderness - Neurological Exam Neurological Exam: Alert, Awake, CN II-XII Intact, Oriented x3 - Psychiatric Exam Psychiatric exam: Normal Mood - Skin Skin Exam: Normal Color, Warm Assessment and Plan - Assessment and Plan (Free Text) Plan: ASSESSMENT SEPSIS /LEUKOCYTOSIS ?CYSTITIS S/P - B/L ORCHIECTOMY 03/21/17 S/P TURP- S/P SEPSIS SEC. UTI/CHRONIC Romero +VE MRSA. HX . URINARY RETENTION CA OF PROSTATE. S/P HYPONATREMIIA HTN. lEFT FOOT DECUBITUS ULCER-UNSTAGEABLE. /PLAN : ON IV ZOSYN 3.375 MG IV Q6 HRLY. 03/17/17. ON IV VANCOMYCIN TO 1350MG EVERY 24 HOURLY. F/U VANCO TROUGH PRIOR TO THE THIRD DOSE OF ABOVE. ON IV FLAGYL 500 EVERY 12 HOURLY .03/29/17 F/U INDUCED SPUTUM CULTURE. .MVI SUSPENSION 5ML PO OD DAILY PER ATTENDING PATIENT DNR/DNI..
[2017-04-02] MEDS: Piperacill/Tazo 3.375gm in Dex 3.375 GM/50 ML BAG IVPB SCH ×4 (00:13→18:51)
[2017-04-02] MEDS: Vitamins A & D Oint UD Foilpak TOP SCH ×7 (00:18→21:46)
[2017-04-02] MEDS: Ipratropium 0.02% Inhal Soln (0.5 mg/2.5 ml) UD IH SCH ×4 (02:16→19:51)
[2017-04-02] MEDS: Dextrose 5%/0.45% NS 1,000 ML IV SCH ×4 (05:51→17:03)
[2017-04-02] MEDS: Budesonide 0.5 mg/2 ml Inhal Susp UD INH SCH ×2 (07:19→19:51)
--- NOTE | 2017-04-02 07:33 | RAD ---
Chest x-ray single frontal view History: Pneumonia. Comparison: 03/29/2017 Findings: Persistent patchy opacifications seen in the right mid to lower lung zone as well as at the left lung base which may represent underlying infiltrate. Clinical correlation. Small bilateral pleural effusions. Multiple ill-defined probable calcified pleural plaques throughout both lungs. Biapical pleural thickening with upper lobe granulomatous changes. Scattered nodular densities throughout both lungs. Diffuse increased interstitial lung markings throughout both lungs. Tortuous aorta. Top normal heart. Degenerative changes in the spine and shoulders. Impression: Persistent patchy opacifications seen in the right mid to lower lung zone as well as at the left lung base which may represent underlying infiltrate. Clinical correlation. Small bilateral pleural effusions. Multiple ill-defined probable calcified pleural plaques throughout both lungs. Biapical pleural thickening with upper lobe granulomatous changes. Scattered nodular densities throughout both lungs. Diffuse increased interstitial lung markings throughout both lungs. Tortuous aorta.
[2017-04-02 07:39] LABS: BASO % 0.3 % (0.0-2.0); HEMOGLOBIN 7.8 g/dL (12.0-18.0); LYMPH # 0.4 K/uL (1.0-4.3); LYMPH % 7.5 % (20.0-40.0); MEAN CELL VOLUME 84.4 fL (80.0-94.0); MEAN CORPUSCULAR HEMOGLOBIN 28.7 pg (27.0-31.0); MEAN CORPUSCULAR HGB CONC 34.1 g/dL (33.0-37.0); MONO # 0.1 K/uL (0.0-0.8); MONO % 1.9 % (0.0-10.0); NEUT # 5.4 K/uL (1.8-7.0); NEUT % 90.3 % (50.0-75.0); PLATELET COUNT 196 K/uL (130-400); RBC 2.72 Mil/uL (4.40-5.90); RED CELL DISTRIBUTION WIDTH 15.2 % (11.5-14.5); WHITE BLOOD COUNT 5.9 K/uL (4.8-10.8)
[2017-04-02 08:01] LABS: BLOOD UREA NITROGEN 10 mg/dL (9-20); CALCIUM 7.4 mg/dl (8.6-10.4); GFR AFRICAN-AMERICAN > 60; GFR NON-AFRICAN AMERICAN > 60
[2017-04-02] MEDS: VANCOMYCIN IVPB SCH (09:48)
[2017-04-02] MEDS: SODIUM CHLORIDE 0.9% IVPB SCH (09:48)
[2017-04-02 11:17] LABS: BANDS 1 % (0-2); LYMPHOCYTE 6 % (20-40); MONOCYTE 1 % (0-10); NEUTROPHIL 92 % (50-75); TOTAL CELLS COUNTED 100
[2017-04-02 11:18] LABS: PLATELET ESTIMATE NORMAL (NORMAL)
[2017-04-02 11:19] LABS: ANISOCYTOSIS SLIGHT; BURR CELLS SLIGHT; HYPOCHROMIC SLIGHT; LARGE PLATELETS PRESENT; OVALOCYTES SLIGHT; POIKILOCYTOSIS SLIGHT; POLYCHROMIC SLIGHT
[2017-04-02] MEDS: Potassium & Sodium Phosphate PO SCH ×2 (11:48→18:50)
[2017-04-02] MEDS: Magnesium Oxide 400 mg Tab UD NG SCH ×2 (11:48→18:50)
[2017-04-02] MEDS: Multiple Vitamins Tab PO SCH (11:48)
[2017-04-02] MEDS ORDERED: Potassium Chloride 20 mEq/15 ml LIQ UD PO ONE (12:00)
[2017-04-02] MEDS: Enoxaparin 30 mg Syringe SC SCH (12:20)
[2017-04-02] MEDS: metroNIDAZOLE IV 500 mg/100 ml 500 MG/100 ML BAG IVPB SCH ×2 (12:53→21:29)
--- NOTE | 2017-04-02 13:13 | CP.PCM.PN ---
Subjective - Date & Time of Evaluation Date of Evaluation: 04/02/17 Time of Evaluation: 13:11 - Subjective Subjective: 81 y/o male pt seen at bedside concerning unstageable decubitus ulcerations to left heel & left lateral 5th metatarsal head. Pt is seen sleeping in bed at time of visit but is easily arousable. Patient is AAO x 3 and NAD. 1:1 at bedside. Offloading heel boots in place BL. Denies any further pedal complaints at this time. Denies N/V/F/C/CP/SOB/D/posterior calf pain. Per primary plan for comfort care at this time. Objective - Vital Signs/Intake and Output Vital Signs (last 24 hours): Temp Pulse Resp BP Pulse Ox 97.2 F L 80 20 94/58 L 96 04/02/17 09:04 04/02/17 09:04 04/02/17 09:04 04/02/17 09:04 04/02/17 09:04 Intake and Output: 04/02/17 04/02/17 06:59 18:59 Intake Total 685 620 Output Total 100 100 Balance 585 520 - Medications Medications: Current Medications Acetaminophen (Tylenol 325mg Tab) 650 mg PO Q6H PRN PRN Reason: PAIN, MILD 1-3 Last Admin: 04/02/17 02:11 Dose: 650 mg Aspirin (Aspirin Chewable) 81 mg PO DAILY [facility] Last Admin: 04/02/17 11:47 Dose: Not Given Budesonide (Pulmicort Respules) 0.5 mg INH RQ12 [facility] Last Admin: 04/02/17 07:19 Dose: 0.5 mg Clopidogrel Bisulfate (Plavix) 75 mg PO DAILY [facility] Last Admin: 04/02/17 11:49 Dose: Not Given Enoxaparin Sodium (Lovenox) 30 mg SC DAILY [facility] Last Admin: 04/02/17 12:20 Dose: Not Given Phenylephrine HCl 30 mg/ (Dextrose) 253 mls @ 10.12 mls/hr IV .Q24H PRN; Protocol; 20 MCG/MIN PRN Reason: TITRATE PER MD ORDER Last Titration: 03/24/17 16:00 Dose: Infused Metronidazole (Flagyl) 500 mg in 100 mls @ 100 mls/hr IVPB Q12 [facility] Last Admin: 04/02/17 12:53 Dose: 100 mls/hr Vancomycin HCl 1.35 gm/ Sodium (Chloride) 500 mls @ 300 mls/hr IVPB Q24H [facility] Last Admin: 04/02/17 09:48 Dose: 300 mls/hr Piperacillin Sod/Tazobactam Sod (Zosyn 3.375 Gm Iv Premix) 3.375 gm in 50 mls @ 100 mls/hr IVPB Q6H [facility] Last Admin: 04/02/17 12:54 Dose: 100 mls/hr Dextrose/Sodium Chloride (Dextrose 5%/0.45% Ns 1000 Ml) 1,000 mls @ 75 mls/hr IV .[id number] [facility] Last Admin: 04/02/17 11:52 Dose: 75 mls/hr Ipratropium [place] (Atrovent) 0.5 mg IH RQ6 [facility] Last Admin: 04/02/17 07:19 Dose: 0.5 mg Magnesium Oxide (Mag-Ox) 400 mg NG BID [facility] Last Admin: 04/02/17 11:48 Dose: Not Given Metoprolol Tartrate (Lopressor) 25 mg PO BID [facility] Last Admin: 04/02/17 11:48 Dose: Not Given Morphine Sulfate (Morphine) 2 mg IVP Q4 PRN PRN Reason: Pain, moderate (4-7) Multivitamins (Hexavitamin) 1 tab PO DAILY [facility] Last Admin: 04/02/17 11:48 Dose: Not Given Potassium Phos/Sodium Phos (Neutra-Phos) 1 pkt PO BID [facility] Last Admin: 04/02/17 11:48 Dose: Not Given Rosuvastatin Calcium (Crestor) 10 mg PO HS [facility] Last Admin: 04/01/17 21:59 Dose: 10 mg Tamsulosin HCl (Flomax) 0.4 mg PO DAILY [facility] Last Admin: 04/02/17 11:48 Dose: Not Given Vitamin A (Vitamin A & D Oint Ud Foilpak) 0.5 ea TOP Q4 [facility] Last Admin: 04/02/17 11:49 Dose: 0.5 ea - Labs Labs: 04/02/17 07:24 04/02/17 07:24 PT 19.5 SECONDS (9.7-12.2) H 03/23/17 14:24 INR 1.7 03/23/17 14:24 APTT 49 SECONDS (21-34) H 03/23/17 14:24 - Constitutional Appears: Well, Non-toxic, No Acute Distress - Extremities Exam Additional comments: B/L lower ext exam: Vasc: Non-palpable DP/PT pulses B/L, cfl < 3sec to all digits, skin temp wnl BL , no edema appreciated Neuro: Gross pedal sensation is intact B/L Derm: unstageable decubitus ulceration to heel measuring 3cm x 4cm with no drainage, neg ptb, neg fluctuance, no malodor. No signs infection, there is also an ulceration noted to lateral aspect of 5th metatarsal head measuring 1.2cmx 1.0cm with fibrous base, + probe to bone, no purulence today, neg malodor , neg cellulitis Ortho: tenderness is noted to palpation to heel at the site of ulceration, slight tenderness elicited to palpation to lateral 5th metatarsal head - Neurological Exam Neurological Exam: Alert, Awake, Oriented x3 - Psychiatric Exam Psychiatric exam: Normal Affect, Normal Mood Assessment and Plan - Assessment and Plan (Free Text) Assessment: 81 y/o male w/ unstageable decubitus ulcerations to left heel and left lateral 5th metatarsal head Plan: Patient seen and evaluated at bedside with attending Dr. Celeste Afebrile WBC 5.9 Continue IV abx per ID No plan for surgical intervention at this time Wounds dressed with sunnyhoparveen, Telpaxton and DSD Podiatry will continue to follow while patient in house
--- NOTE | 2017-04-02 14:32 | PN ---
DATE: FOLLOWUP SUBJECTIVE: The patient was kept n.p.o. because of possible aspiration. He is lethargic and does not appear to be in respiratory distress. PHYSICAL EXAMINATION: VITAL SIGNS: Blood pressure 94/58, heart rate 80, temperature 97.2, respirations 20. HEENT: Pale conjunctivae. CHEST: Bilateral rhonchi. HEART: S1 and S2 regular. EXTREMITIES: Dressing is applied to the left foot. LABORATORY DATA: Today's hemoglobin and hematocrit 7.8 and 22.9. White count and platelet count are within normal limit. SMA-7: Sodium 139, potassium 3.3, chloride 111, CO2 of 25, glucose 158, BUN 10, creatinine 0.5. Yesterday's magnesium was 1.7, within normal limit. Yesterday's chest x-ray was reviewed and the report stated persistent patchy opacification seen in the right mid to lower lung zones as well as the left lung base, which may represent underlying infiltrate. Small bilateral pleural effusion. Biapical pleural thickening with upper lobe granulomatous changes. Diffuse increased interstitial lung markings throughout the lungs. ASSESSMENT: 1. Rule out aspiration. 2. Paroxysmal atrial fibrillation. 3. Peripheral vascular disease, status post left posterior tibial artery balloon angioplasty. 4. Methicillin-resistant Staphylococcus aureus urinary tract infection. 5. Anemia. 6. Hypokalemia. RECOMMENDATIONS: Continue Crestor 10 mg once a day. Discontinue Lopressor. Continue IV vancomycin at 1.35 g daily, IV Zosyn 3.375 g intravenously q. 6 hours. I will order potassium chloride 20 mEq intravenously now. Overall prognosis is grave. Theo Cervantes MD
--- NOTE | 2017-04-02 16:56 | CP.PCM.PN ---
Subjective - Date & Time of Evaluation Date of Evaluation: 04/02/17 Time of Evaluation: 18:00 - Subjective Subjective: Pt seen and examined, congested, short of breath, not thriving, malnourished , not able to swallow Objective - Vital Signs/Intake and Output Vital Signs (last 24 hours): Temp Pulse Resp BP Pulse Ox 97.2 F L 79 20 95/42 L 98 04/02/17 15:20 04/02/17 15:20 04/02/17 15:20 04/02/17 15:20 04/02/17 15:20 Intake and Output: 04/02/17 04/02/17 06:59 18:59 Intake Total 685 620 Output Total 100 100 Balance 585 520 - Medications Medications: Current Medications Acetaminophen (Tylenol 325mg Tab) 650 mg PO Q6H PRN PRN Reason: PAIN, MILD 1-3 Last Admin: 04/02/17 02:11 Dose: 650 mg Aspirin (Aspirin Chewable) 81 mg PO DAILY [facility] Last Admin: 04/02/17 11:47 Dose: Not Given Budesonide (Pulmicort Respules) 0.5 mg INH RQ12 [facility] Last Admin: 04/02/17 07:19 Dose: 0.5 mg Clopidogrel Bisulfate (Plavix) 75 mg PO DAILY [facility] Last Admin: 04/02/17 11:49 Dose: Not Given Enoxaparin Sodium (Lovenox) 30 mg SC DAILY [facility] Last Admin: 04/02/17 12:20 Dose: Not Given Phenylephrine HCl 30 mg/ (Dextrose) 253 mls @ 10.12 mls/hr IV .Q24H PRN; Protocol; 20 MCG/MIN PRN Reason: TITRATE PER MD ORDER Last Titration: 03/24/17 16:00 Dose: Infused Metronidazole (Flagyl) 500 mg in 100 mls @ 100 mls/hr IVPB Q12 [facility] Last Admin: 04/02/17 12:53 Dose: 100 mls/hr Vancomycin HCl 1.35 gm/ Sodium (Chloride) 500 mls @ 300 mls/hr IVPB Q24H [facility] Last Admin: 04/02/17 09:48 Dose: 300 mls/hr Piperacillin Sod/Tazobactam Sod (Zosyn 3.375 Gm Iv Premix) 3.375 gm in 50 mls @ 100 mls/hr IVPB Q6H [facility] Last Admin: 04/02/17 12:54 Dose: 100 mls/hr Dextrose/Sodium Chloride (Dextrose 5%/0.45% Ns 1000 Ml) 1,000 mls @ 75 mls/hr IV .[id number] [facility] Last Admin: 04/02/17 11:52 Dose: 75 mls/hr Ipratropium [place] (Atrovent) 0.5 mg IH RQ6 [facility] Last Admin: 04/02/17 13:25 Dose: 0.5 mg Magnesium Oxide (Mag-Ox) 400 mg NG BID [facility] Last Admin: 04/02/17 11:48 Dose: Not Given Metoprolol Tartrate (Lopressor) 25 mg PO BID [facility] Last Admin: 04/02/17 11:48 Dose: Not Given Morphine Sulfate (Morphine) 2 mg IVP Q4 PRN PRN Reason: Pain, moderate (4-7) Multivitamins (Hexavitamin) 1 tab PO DAILY [facility] Last Admin: 04/02/17 11:48 Dose: Not Given Potassium Phos/Sodium Phos (Neutra-Phos) 1 pkt PO BID [facility] Last Admin: 04/02/17 11:48 Dose: Not Given Rosuvastatin Calcium (Crestor) 10 mg PO HS [facility] Last Admin: 04/01/17 21:59 Dose: 10 mg Tamsulosin HCl (Flomax) 0.4 mg PO DAILY [facility] Last Admin: 04/02/17 11:48 Dose: Not Given Vitamin A (Vitamin A & D Oint Ud Foilpak) 0.5 ea TOP Q4 [facility] Last Admin: 04/02/17 11:49 Dose: 0.5 ea - Labs Labs: 04/02/17 07:24 04/02/17 07:24 PT 19.5 SECONDS (9.7-12.2) H 03/23/17 14:24 INR 1.7 03/23/17 14:24 APTT 49 SECONDS (21-34) H 03/23/17 14:24 Assessment and Plan (1) CA prostate, adenoca Status: Acute (2) Sepsis Status: Acute (3) UTI (urinary tract infection) Status: Acute (4) Acute urinary retention Status: Acute (5) CAD (coronary artery disease) Status: Acute (6) Hyponatremia Status: Acute (7) S/P TURP (status post transurethral resection of prostate) Status: Acute (8) Malnourished Status: Acute (9) S/P orchiectomy Status: Acute (10) PVD (peripheral vascular disease) Status: Acute
--- NOTE | 2017-04-02 16:56 | CP.PCM.PN ---
Subjective - Date & Time of Evaluation Date of Evaluation: 04/01/17 Time of Evaluation: 19:00 - Subjective Subjective: Pt still is congested, we shall do more work up to rule out aspiration pnemonia , pt is in mild resp distress, not thriving, poor nutrition syatus allows to have peg Objective - Vital Signs/Intake and Output Vital Signs (last 24 hours): Temp Pulse Resp BP Pulse Ox 97.2 F L 79 20 95/42 L 98 04/02/17 15:20 04/02/17 15:20 04/02/17 15:20 04/02/17 15:20 04/02/17 15:20 Intake and Output: 04/02/17 04/02/17 06:59 18:59 Intake Total 685 620 Output Total 100 100 Balance 585 520 - Medications Medications: Current Medications Acetaminophen (Tylenol 325mg Tab) 650 mg PO Q6H PRN PRN Reason: PAIN, MILD 1-3 Last Admin: 04/02/17 02:11 Dose: 650 mg Aspirin (Aspirin Chewable) 81 mg PO DAILY [facility] Last Admin: 04/02/17 11:47 Dose: Not Given Budesonide (Pulmicort Respules) 0.5 mg INH RQ12 [facility] Last Admin: 04/02/17 07:19 Dose: 0.5 mg Clopidogrel Bisulfate (Plavix) 75 mg PO DAILY [facility] Last Admin: 04/02/17 11:49 Dose: Not Given Enoxaparin Sodium (Lovenox) 30 mg SC DAILY [facility] Last Admin: 04/02/17 12:20 Dose: Not Given Phenylephrine HCl 30 mg/ (Dextrose) 253 mls @ 10.12 mls/hr IV .Q24H PRN; Protocol; 20 MCG/MIN PRN Reason: TITRATE PER MD ORDER Last Titration: 03/24/17 16:00 Dose: Infused Metronidazole (Flagyl) 500 mg in 100 mls @ 100 mls/hr IVPB Q12 [facility] Last Admin: 04/02/17 12:53 Dose: 100 mls/hr Vancomycin HCl 1.35 gm/ Sodium (Chloride) 500 mls @ 300 mls/hr IVPB Q24H [facility] Last Admin: 04/02/17 09:48 Dose: 300 mls/hr Piperacillin Sod/Tazobactam Sod (Zosyn 3.375 Gm Iv Premix) 3.375 gm in 50 mls @ 100 mls/hr IVPB Q6H [facility] Last Admin: 04/02/17 12:54 Dose: 100 mls/hr Dextrose/Sodium Chloride (Dextrose 5%/0.45% Ns 1000 Ml) 1,000 mls @ 75 mls/hr IV .[id number] [facility] Last Admin: 04/02/17 11:52 Dose: 75 mls/hr Ipratropium [place] (Atrovent) 0.5 mg IH RQ6 [facility] Last Admin: 04/02/17 13:25 Dose: 0.5 mg Magnesium Oxide (Mag-Ox) 400 mg NG BID [facility] Last Admin: 04/02/17 11:48 Dose: Not Given Metoprolol Tartrate (Lopressor) 25 mg PO BID [facility] Last Admin: 04/02/17 11:48 Dose: Not Given Morphine Sulfate (Morphine) 2 mg IVP Q4 PRN PRN Reason: Pain, moderate (4-7) Multivitamins (Hexavitamin) 1 tab PO DAILY [facility] Last Admin: 04/02/17 11:48 Dose: Not Given Potassium Phos/Sodium Phos (Neutra-Phos) 1 pkt PO BID [facility] Last Admin: 04/02/17 11:48 Dose: Not Given Rosuvastatin Calcium (Crestor) 10 mg PO HS [facility] Last Admin: 04/01/17 21:59 Dose: 10 mg Tamsulosin HCl (Flomax) 0.4 mg PO DAILY [facility] Last Admin: 04/02/17 11:48 Dose: Not Given Vitamin A (Vitamin A & D Oint Ud Foilpak) 0.5 ea TOP Q4 [facility] Last Admin: 04/02/17 11:49 Dose: 0.5 ea - Labs Labs: 04/02/17 07:24 04/02/17 07:24 PT 19.5 SECONDS (9.7-12.2) H 03/23/17 14:24 INR 1.7 03/23/17 14:24 APTT 49 SECONDS (21-34) H 03/23/17 14:24 Assessment and Plan (1) CA prostate, adenoca Status: Acute (2) Sepsis Status: Acute (3) UTI (urinary tract infection) Status: Acute (4) Acute urinary retention Status: Acute (5) CAD (coronary artery disease) Status: Acute (6) Hyponatremia Status: Acute (7) S/P TURP (status post transurethral resection of prostate) Status: Acute (8) Malnourished Status: Acute (9) S/P orchiectomy Status: Acute (10) PVD (peripheral vascular disease) Status: Acute - Assessment and Plan (Free Text) Plan: pt not thriving, not able to swallow, will consider PEG placemnt pt is NPO for , IV fluids, CXR, diose of salmedrol mild resp distress Rule out aspiration pnemonia
--- NOTE | 2017-04-02 21:30 | CP.PCM.PN ---
Subjective - Date & Time of Evaluation Date of Evaluation: 04/02/17 Time of Evaluation: 21:29 - Subjective Subjective: afebrile, awake Congested Thick tenacious secretions as per staff suctioned. tolerating IV antibiotics. Labs; Reviewed WBC improving. Chest x-ray 04/01/17 bilateral infiltrates unchanged. Objective - Vital Signs/Intake and Output Vital Signs (last 24 hours): Temp Pulse Resp BP Pulse Ox 97.2 F L 79 20 95/42 L 98 04/02/17 15:20 04/02/17 15:20 04/02/17 15:20 04/02/17 15:20 04/02/17 15:20 Intake and Output: 04/02/17 04/03/17 18:59 06:59 Intake Total 620 Output Total 100 Balance 520 - Medications Medications: Current Medications Acetaminophen (Tylenol 325mg Tab) 650 mg PO Q6H PRN PRN Reason: PAIN, MILD 1-3 Last Admin: 04/02/17 02:11 Dose: 650 mg Aspirin (Aspirin Chewable) 81 mg PO DAILY [facility] Last Admin: 04/02/17 11:47 Dose: Not Given Budesonide (Pulmicort Respules) 0.5 mg INH RQ12 [facility] Last Admin: 04/02/17 19:51 Dose: 0.5 mg Clopidogrel Bisulfate (Plavix) 75 mg PO DAILY [facility] Last Admin: 04/02/17 11:49 Dose: Not Given Enoxaparin Sodium (Lovenox) 30 mg SC DAILY [facility] Last Admin: 04/02/17 12:20 Dose: Not Given Phenylephrine HCl 30 mg/ (Dextrose) 253 mls @ 10.12 mls/hr IV .Q24H PRN; Protocol; 20 MCG/MIN PRN Reason: TITRATE PER MD ORDER Last Titration: 03/24/17 16:00 Dose: Infused Metronidazole (Flagyl) 500 mg in 100 mls @ 100 mls/hr IVPB Q12 [facility] Last Admin: 04/02/17 21:29 Dose: 100 mls/hr Vancomycin HCl 1.35 gm/ Sodium (Chloride) 500 mls @ 300 mls/hr IVPB Q24H [facility] Last Admin: 04/02/17 09:48 Dose: 300 mls/hr Piperacillin Sod/Tazobactam Sod (Zosyn 3.375 Gm Iv Premix) 3.375 gm in 50 mls @ 100 mls/hr IVPB Q6H [facility] Last Admin: 04/02/17 18:51 Dose: 100 mls/hr Dextrose/Sodium Chloride (Dextrose 5%/0.45% Ns 1000 Ml) 1,000 mls @ 75 mls/hr IV .[id number] [facility] Last Admin: 04/02/17 17:03 Dose: 75 mls/hr Ipratropium [place] (Atrovent) 0.5 mg IH RQ6 [facility] Last Admin: 04/02/17 19:51 Dose: 0.5 mg Magnesium Oxide (Mag-Ox) 400 mg NG BID [facility] Last Admin: 04/02/17 18:50 Dose: Not Given Metoprolol Tartrate (Lopressor) 25 mg PO BID [facility] Last Admin: 04/02/17 18:50 Dose: Not Given Morphine Sulfate (Morphine) 2 mg IVP Q4 PRN PRN Reason: Pain, moderate (4-7) Multivitamins (Hexavitamin) 1 tab PO DAILY [facility] Last Admin: 04/02/17 11:48 Dose: Not Given Potassium Phos/Sodium Phos (Neutra-Phos) 1 pkt PO BID [facility] Last Admin: 04/02/17 18:50 Dose: Not Given Rosuvastatin Calcium (Crestor) 10 mg PO HS [facility] Last Admin: 04/02/17 21:29 Dose: 10 mg Tamsulosin HCl (Flomax) 0.4 mg PO DAILY [facility] Last Admin: 04/02/17 11:48 Dose: Not Given Vitamin A (Vitamin A & D Oint Ud Foilpak) 0.5 ea TOP Q4 [facility] Last Admin: 04/02/17 18:50 Dose: 0.5 ea - Labs Labs: 04/02/17 07:24 04/02/17 07:24 PT 19.5 SECONDS (9.7-12.2) H 03/23/17 14:24 INR 1.7 03/23/17 14:24 APTT 49 SECONDS (21-34) H 03/23/17 14:24 - Constitutional Appears: No Acute Distress, Cachectic, Chronically Ill - Eye Exam Eye Exam: EOMI, PERRL - ENT Exam ENT Exam: Normal Oropharynx - Neck Exam Neck Exam: Normal Inspection - Respiratory Exam Respiratory Exam: Rhonchi (bilateral rhonchi.), NORMAL BREATHING PATTERN - GI/Abdominal Exam GI & Abdominal Exam: Soft, Normal Bowel Sounds - Extremities Exam Extremities Exam: Normal Capillary Refill, Pedal Edema. absent: Calf Tenderness - Neurological Exam Neurological Exam: Awake, CN II-XII Intact, Oriented x3 - Psychiatric Exam Psychiatric exam: Normal Affect - Skin Skin Exam: Normal Color, Pallor Assessment and Plan - Assessment and Plan (Free Text) Assessment: SEPSIS /LEUKOCYTOSIS ?CYSTITIS S/P - B/L ORCHIECTOMY 03/21/17 S/P TURP- S/P SEPSIS SEC. UTI/CHRONIC [place] +VE MRSA. HX . URINARY RETENTION CA OF PROSTATE. S/P HYPONATREMIIA HTN. lEFT FOOT DECUBITUS ULCER-UNSTAGEABLE. /PLAN : ON IV ZOSYN 3.375 MG IV Q6 [facility]. 03/17/17. ON IV VANCOMYCIN TO 1350MG EVERY 24 HOURLY. F/U VANCO TROUGH PRIOR TO THE THIRD DOSE OF ABOVE. ON IV FLAGYL 500 EVERY 12 HOURLY .03/29/17 F/U INDUCED SPUTUM CULTURE.-PENDING. PT DNR/DNI.
[2017-04-03] MEDS: Piperacill/Tazo 3.375gm in Dex 3.375 GM/50 ML BAG IVPB SCH ×2 (00:23→05:52)
[2017-04-03] MEDS: Vitamins A & D Oint UD Foilpak TOP SCH ×6 (00:23→21:04)
[2017-04-03] MEDS: Dextrose 5%/0.45% NS 1,000 ML IV SCH ×2 (01:00→14:47)
[2017-04-03] MEDS: Ipratropium 0.02% Inhal Soln (0.5 mg/2.5 ml) UD IH SCH ×4 (01:33→19:29)
[2017-04-03] MEDS: Budesonide 0.5 mg/2 ml Inhal Susp UD INH SCH ×2 (07:37→19:29)
[2017-04-03] MEDS: VANCOMYCIN IVPB SCH (08:25)
[2017-04-03] MEDS: SODIUM CHLORIDE 0.9% IVPB SCH (08:25)
[2017-04-03] MEDS: Multiple Vitamins Tab PO SCH (11:27)
[2017-04-03] MEDS: Magnesium Oxide 400 mg Tab UD NG SCH ×2 (11:28→18:53)
[2017-04-03] MEDS: Potassium & Sodium Phosphate PO SCH ×2 (11:28→18:53)
[2017-04-03] MEDS: Enoxaparin 30 mg Syringe SC SCH (11:28)
[2017-04-03] MEDS: metroNIDAZOLE IV 500 mg/100 ml 500 MG/100 ML BAG IVPB SCH ×2 (12:06→21:02)
[2017-04-03] MEDS: Piperacillin/Tazobact 3.375 GM in Sodium Chloride 0.9% 100 ML IVPB SCH ×2 (12:08→19:01)
--- NOTE | 2017-04-03 14:14 | PN ---
DATE: FOLLOWUP SUBJECTIVE: The patient is today awake, oriented and very pleasant. He is still n.p.o. He denies any chest pain. PHYSICAL EXAMINATION: VITAL SIGNS: Blood pressure 91/47, heart rate 80, temperature 97.9, respirations 18. HEENT: Pale conjunctivae. CHEST: Bilateral rhonchi. HEART: S1 and S2 regular. EXTREMITIES: Dressing is applied to the left foot. ASSESSMENT: 1. Peripheral vascular disease, status post balloon angioplasty to the posterior tibial artery. 2. Paroxysmal atrial fibrillation. 3. Hypokalemia. 4. Improved hypomagnesemia. 5. Uncontrolled diabetes mellitus. 6. Possible aspiration. RECOMMENDATIONS: I discussed the case with the patient's nurse, who is giving him his order and I suggested to start the patient on nasogastric tube feeding and also administer the oral medications by nasogastric tube. I will further discuss the case with Dr. Jaxon Rollins. Theo Cervantes MD
--- NOTE | 2017-04-03 21:09 | CP.PCM.PN ---
Subjective - Date & Time of Evaluation Date of Evaluation: 04/03/17 Time of Evaluation: 20:45 - Subjective Subjective: afebrile, awake Congested Thick tenacious secretions as per staff suctioned. tolerating IV antibiotics. Labs; Reviewed WBC improving. Chest x-ray 04/01/17 bilateral infiltrates unchanged. Objective - Vital Signs/Intake and Output Vital Signs (last 24 hours): Temp Pulse Resp BP Pulse Ox 98.3 F 85 18 106/62 96 04/03/17 15:10 04/03/17 15:10 04/03/17 15:10 04/03/17 15:10 04/03/17 15:10 - Medications Medications: Current Medications Acetaminophen (Tylenol 325mg Tab) 650 mg PO Q6H PRN PRN Reason: PAIN, MILD 1-3 Last Admin: 04/02/17 02:11 Dose: 650 mg Aspirin (Aspirin Chewable) 81 mg PO DAILY [facility] Last Admin: 04/03/17 11:26 Dose: Not Given Budesonide (Pulmicort Respules) 0.5 mg INH RQ12 [facility] Last Admin: 04/03/17 19:29 Dose: 0.5 mg Clopidogrel Bisulfate (Plavix) 75 mg PO DAILY [facility] Last Admin: 04/03/17 11:28 Dose: Not Given Enoxaparin Sodium (Lovenox) 30 mg SC DAILY [facility] Last Admin: 04/03/17 11:28 Dose: Not Given Phenylephrine HCl 30 mg/ (Dextrose) 253 mls @ 10.12 mls/hr IV .Q24H PRN; Protocol; 20 MCG/MIN PRN Reason: TITRATE PER MD ORDER Last Titration: 03/24/17 16:00 Dose: Infused Metronidazole (Flagyl) 500 mg in 100 mls @ 100 mls/hr IVPB Q12 [facility] Last Admin: 04/03/17 21:02 Dose: 100 mls/hr Vancomycin HCl 1.35 gm/ Sodium (Chloride) 500 mls @ 300 mls/hr IVPB Q24H [facility] Last Admin: 04/03/17 08:25 Dose: 300 mls/hr Dextrose/Sodium Chloride (Dextrose 5%/0.45% Ns 1000 Ml) 1,000 mls @ 75 mls/hr IV .[id number] [facility] Last Admin: 04/03/17 14:47 Dose: Not Given Piperacillin Sod/Tazobactam (Sod 3.375 gm/ Sodium Chloride) 100 mls @ 100 mls/ hr IVPB Q6H [facility] Last Admin: 04/03/17 19:01 Dose: 100 mls/hr Ipratropium [place] (Atrovent) 0.5 mg IH RQ6 [facility] Last Admin: 04/03/17 19:29 Dose: 0.5 mg Magnesium Oxide (Mag-Ox) 400 mg NG BID [facility] Last Admin: 04/03/17 18:53 Dose: Not Given Metoprolol Tartrate (Lopressor) 25 mg PO BID [facility] Last Admin: 04/03/17 18:53 Dose: Not Given Morphine Sulfate (Morphine) 2 mg IVP Q4 PRN PRN Reason: Pain, moderate (4-7) Multivitamins (Hexavitamin) 1 tab PO DAILY [facility] Last Admin: 04/03/17 11:27 Dose: Not Given Potassium Phos/Sodium Phos (Neutra-Phos) 1 pkt PO BID [facility] Last Admin: 04/03/17 18:53 Dose: Not Given Rosuvastatin Calcium (Crestor) 10 mg PO HS [facility] Last Admin: 04/03/17 21:00 Dose: Not Given Tamsulosin HCl (Flomax) 0.4 mg PO DAILY [facility] Last Admin: 04/03/17 11:27 Dose: Not Given Vitamin A (Vitamin A & D Oint Ud Foilpak) 0.5 ea TOP Q4 [facility] Last Admin: 04/03/17 21:04 Dose: Not Given - Labs Labs: 04/02/17 07:24 04/02/17 07:24 PT 19.5 SECONDS (9.7-12.2) H 03/23/17 14:24 INR 1.7 03/23/17 14:24 APTT 49 SECONDS (21-34) H 03/23/17 14:24 Assessment and Plan (1) CA prostate, adenoca Status: Acute (2) Sepsis Status: Acute (3) UTI (urinary tract infection) Status: Acute (4) Acute urinary retention Status: Acute (5) CAD (coronary artery disease) Status: Acute (6) Hyponatremia Status: Acute (7) S/P TURP (status post transurethral resection of prostate) Status: Acute (8) Malnourished Status: Acute (9) S/P orchiectomy Status: Acute (10) PVD (peripheral vascular disease) Status: Acute (11) Pulmonary congestion Status: Acute
[2017-04-04] MEDS: Vitamins A & D Oint UD Foilpak TOP SCH ×6 (00:57→20:18)
[2017-04-04] MEDS: Piperacillin/Tazobact 3.375 GM in Sodium Chloride 0.9% 100 ML IVPB SCH ×4 (00:58→17:41)
[2017-04-04] MEDS: Ipratropium 0.02% Inhal Soln (0.5 mg/2.5 ml) UD IH SCH ×4 (02:06→20:48)
[2017-04-04] MEDS: Budesonide 0.5 mg/2 ml Inhal Susp UD INH SCH ×2 (07:35→20:47)
[2017-04-04] MEDS: SODIUM CHLORIDE 0.9% IVPB SCH (08:37)
[2017-04-04] MEDS: VANCOMYCIN IVPB SCH (08:37)
[2017-04-04] MEDS: Multiple Vitamins Tab PO SCH (10:18)
[2017-04-04] MEDS: Magnesium Oxide 400 mg Tab UD NG SCH ×2 (10:18→17:54)
[2017-04-04] MEDS: Potassium & Sodium Phosphate PO SCH ×2 (10:18→17:54)
[2017-04-04] MEDS: Enoxaparin 30 mg Syringe SC SCH (10:19)
[2017-04-04] MEDS: metroNIDAZOLE IV 500 mg/100 ml 500 MG/100 ML BAG IVPB SCH ×2 (10:59→21:09)
[2017-04-04] MEDS: Dextrose 5%/0.45% NS 1,000 ML IV SCH (12:48)
--- NOTE | 2017-04-04 13:57 | CP.PCM.PN ---
Subjective - Date & Time of Evaluation Date of Evaluation: 04/04/17 Time of Evaluation: 13:15 - Subjective Subjective: Podiatry Progress Note- Dr. Celeste 81 yo diabetic male pt seen at bedside today concerning unstageable decubitus ulcerations to the left foot. Pt is seen sitting upright in bed at time of visit. Appears much more alert today and talkative, seen with NC O2. Offloading heel boots in place BL. Does complain of some tenderness to the wounds of the left foot today. Denies f/n/v/c today, does complain of some SOB. Offers no further complaints. Objective - Vital Signs/Intake and Output Vital Signs (last 24 hours): Temp Pulse Resp BP Pulse Ox 98.4 F 110 H 20 103/51 L 95 04/04/17 07:00 04/04/17 07:00 04/04/17 07:00 04/04/17 07:00 04/04/17 07:00 Intake and Output: 04/04/17 04/04/17 06:59 18:59 Intake Total 1250 Output Total 500 200 Balance 750 -200 - Medications Medications: Current Medications Acetaminophen (Tylenol 325mg Tab) 650 mg PO Q6H PRN PRN Reason: PAIN, MILD 1-3 Last Admin: 04/02/17 02:11 Dose: 650 mg Aspirin (Aspirin Chewable) 81 mg PO DAILY [facility] Last Admin: 04/04/17 10:17 Dose: Not Given Budesonide (Pulmicort Respules) 0.5 mg INH RQ12 [facility] Last Admin: 04/04/17 07:35 Dose: 0.5 mg Clopidogrel Bisulfate (Plavix) 75 mg PO DAILY [facility] Last Admin: 04/04/17 10:19 Dose: Not Given Enoxaparin Sodium (Lovenox) 30 mg SC DAILY [facility] Last Admin: 04/04/17 10:19 Dose: Not Given Phenylephrine HCl 30 mg/ (Dextrose) 253 mls @ 10.12 mls/hr IV .Q24H PRN; Protocol; 20 MCG/MIN PRN Reason: TITRATE PER MD ORDER Last Titration: 03/24/17 16:00 Dose: Infused Metronidazole (Flagyl) 500 mg in 100 mls @ 100 mls/hr IVPB Q12 [facility] Last Admin: 04/04/17 10:59 Dose: 100 mls/hr Vancomycin HCl 1.35 gm/ Sodium (Chloride) 500 mls @ 300 mls/hr IVPB Q24H [facility] Last Admin: 04/04/17 08:37 Dose: 300 mls/hr Dextrose/Sodium Chloride (Dextrose 5%/0.45% Ns 1000 Ml) 1,000 mls @ 75 mls/hr IV .[id number] [facility] Last Admin: 04/04/17 12:48 Dose: 75 mls/hr Piperacillin Sod/Tazobactam (Sod 3.375 gm/ Sodium Chloride) 100 mls @ 100 mls/ hr IVPB Q6H [facility] Last Admin: 04/04/17 12:46 Dose: 100 mls/hr Ipratropium [place] (Atrovent) 0.5 mg IH RQ6 [facility] Last Admin: 04/04/17 13:31 Dose: Not Given Magnesium Oxide (Mag-Ox) 400 mg NG BID [facility] Last Admin: 04/04/17 10:18 Dose: Not Given Metoprolol Tartrate (Lopressor) 25 mg PO BID [facility] Last Admin: 04/04/17 10:18 Dose: Not Given Morphine Sulfate (Morphine) 2 mg IVP Q4 PRN PRN Reason: Pain, moderate (4-7) Multivitamins (Hexavitamin) 1 tab PO DAILY [facility] Last Admin: 04/04/17 10:18 Dose: Not Given Potassium Phos/Sodium Phos (Neutra-Phos) 1 pkt PO BID [facility] Last Admin: 04/04/17 10:18 Dose: Not Given Rosuvastatin Calcium (Crestor) 10 mg PO HS [facility] Last Admin: 04/03/17 21:00 Dose: Not Given Tamsulosin HCl (Flomax) 0.4 mg PO DAILY [facility] Last Admin: 04/04/17 10:18 Dose: Not Given Vitamin A (Vitamin A & D Oint Ud Foilpak) 0.5 ea TOP Q4 [facility] Last Admin: 04/04/17 11:02 Dose: Not Given - Labs Labs: 04/02/17 07:24 04/02/17 07:24 PT 19.5 SECONDS (9.7-12.2) H 03/23/17 14:24 INR 1.7 03/23/17 14:24 APTT 49 SECONDS (21-34) H 03/23/17 14:24 - Constitutional Appears: Non-toxic, No Acute Distress - Extremities Exam Extremities Exam: absent: Calf Tenderness Additional comments: B/L LE exam: Vasc: Non-palpable DP/PT pulses B/L, cap refill< 3sec to all digits, skin temp wnl BL, neg edema Neuro: Gross pedal sensation is intact B/L Derm: unstageable decubitus ulceration to L heel measuring 3cm x 4cm with no drainage, neg ptb, neg fluctuance, no malodor. No signs infection, there is also a full thickness ulceration noted to lateral aspect of 5th metatarsal head measuring 1.2cmx 1.0cm with fibrous base, + probe to bone, no purulence today, neg malodor, neg cellulitis. Neg wounds/ulcerations right foot Ortho: tenderness is noted to palpation to heel at the site of ulceration, slight tenderness elicited to palpation to lateral 5th metatarsal head - Neurological Exam Neurological Exam: Alert, Awake - Psychiatric Exam Psychiatric exam: Normal Affect, Normal Mood Assessment and Plan - Assessment and Plan (Free Text) Assessment: 81 y/o male w/ unstageable decubitus ulcerations to left heel and left lateral 5th metatarsal head Plan: Pt S&E at the bedside Plan discussed with attending Dr. Celeste Afebrile, neg leukocytosis Continue IV abx per ID No plan for surgical intervention at this time. Left foot wounds dressed w/ medihoney, Telfa and DSD Multipodus boots reapplied bl, pt is to wear at all times while in bed to avoid pressure sores. Podiatry will follow
--- NOTE | 2017-04-04 15:30 | PN ---
DATE: FOLLOWUP SUBJECTIVE: The patient is awake and oriented. He denies any chest pain or shortness of breath. PHYSICAL EXAMINATION: VITAL SIGNS: Blood pressure 103/51, heart rate 110, temperature 98.4, respirations 20. HEENT: Pale conjunctivae. CHEST: Bilateral rhonchi. HEART: S1 and S2 regular. EXTREMITIES: Dressing is applied to the left foot. No pedal edema. ASSESSMENT: 1. Paroxysmal atrial fibrillation. 2. Anemia. 3. Hypokalemia and hypocalcemia. 4. Peripheral vascular disease, status post balloon angioplasty to the left posterior tibial artery. 5. Methicillin-resistant Staphylococcus aureus urinary tract infection. RECOMMENDATIONS: The case was discussed with Dr. Jaxon Rollins, the primary physician. I recommended gastrostomy tube feeding. Dr. Rollins agreed and Dr. Ovalle was called for a consult. In the meantime, continue IV Zosyn at 3.375 g q. 6 hours. The rest of oral medications are being withheld. Continue current vancomycin at 1.35 g intravenously daily. Theo Cervantes MD
--- NOTE | 2017-04-04 22:21 | CP.PCM.PN ---
Subjective - Date & Time of Evaluation Date of Evaluation: 04/04/17 Time of Evaluation: 20:00 - Subjective Subjective: Pt seen and examined, is congested, is weak , Gi consult has been requested for peg insertion Objective - Vital Signs/Intake and Output Vital Signs (last 24 hours): Temp Pulse Resp BP Pulse Ox 97.9 F 91 H 20 101/60 100 04/04/17 15:00 04/04/17 15:00 04/04/17 15:00 04/04/17 15:00 04/04/17 15:00 Intake and Output: 04/04/17 04/05/17 18:59 06:59 Intake Total 800 Output Total 200 Balance 600 - Medications Medications: Current Medications Acetaminophen (Tylenol 325mg Tab) 650 mg PO Q6H PRN PRN Reason: PAIN, MILD 1-3 Last Admin: 04/02/17 02:11 Dose: 650 mg Aspirin (Aspirin Chewable) 81 mg PO DAILY [facility] Last Admin: 04/04/17 10:17 Dose: Not Given Budesonide (Pulmicort Respules) 0.5 mg INH RQ12 [facility] Last Admin: 04/04/17 20:47 Dose: 0.5 mg Clopidogrel Bisulfate (Plavix) 75 mg PO DAILY [facility] Last Admin: 04/04/17 10:19 Dose: Not Given Enoxaparin Sodium (Lovenox) 30 mg SC DAILY [facility] Last Admin: 04/04/17 10:19 Dose: Not Given Phenylephrine HCl 30 mg/ (Dextrose) 253 mls @ 10.12 mls/hr IV .Q24H PRN; Protocol; 20 MCG/MIN PRN Reason: TITRATE PER MD ORDER Last Titration: 03/24/17 16:00 Dose: Infused Metronidazole (Flagyl) 500 mg in 100 mls @ 100 mls/hr IVPB Q12 [facility] Last Admin: 04/04/17 21:09 Dose: 100 mls/hr Vancomycin HCl 1.35 gm/ Sodium (Chloride) 500 mls @ 300 mls/hr IVPB Q24H [facility] Last Admin: 04/04/17 08:37 Dose: 300 mls/hr Dextrose/Sodium Chloride (Dextrose 5%/0.45% Ns 1000 Ml) 1,000 mls @ 75 mls/hr IV .[id number] [facility] Last Admin: 04/04/17 12:48 Dose: 75 mls/hr Piperacillin Sod/Tazobactam (Sod 3.375 gm/ Sodium Chloride) 100 mls @ 100 mls/ hr IVPB Q6H [facility] Last Admin: 04/04/17 17:41 Dose: 100 mls/hr Ipratropium [place] (Atrovent) 0.5 mg IH RQ6 [facility] Last Admin: 04/04/17 20:48 Dose: 0.5 mg Magnesium Oxide (Mag-Ox) 400 mg NG BID [facility] Last Admin: 04/04/17 17:54 Dose: Not Given Metoprolol Tartrate (Lopressor) 25 mg PO BID [facility] Last Admin: 04/04/17 17:54 Dose: Not Given Multivitamins (Hexavitamin) 1 tab PO DAILY [facility] Last Admin: 04/04/17 10:18 Dose: Not Given Potassium Phos/Sodium Phos (Neutra-Phos) 1 pkt PO BID [facility] Last Admin: 04/04/17 17:54 Dose: Not Given Rosuvastatin Calcium (Crestor) 10 mg PO HS [facility] Last Admin: 04/04/17 21:38 Dose: Not Given Tamsulosin HCl (Flomax) 0.4 mg PO DAILY [facility] Last Admin: 04/04/17 10:18 Dose: Not Given Vitamin A (Vitamin A & D Oint Ud Foilpak) 0.5 ea TOP Q4 [facility] Last Admin: 04/04/17 20:18 Dose: Not Given - Labs Labs: 04/02/17 07:24 04/02/17 07:24 PT 19.5 SECONDS (9.7-12.2) H 03/23/17 14:24 INR 1.7 03/23/17 14:24 APTT 49 SECONDS (21-34) H 03/23/17 14:24 - Constitutional Appears: No Acute Distress - Head Exam Head Exam: ATRAUMATIC, NORMAL INSPECTION, NORMOCEPHALIC - Eye Exam Eye Exam: EOMI, Normal appearance, PERRL Pupil Exam: NORMAL ACCOMODATION, PERRL - Respiratory Exam Respiratory Exam: Decreased Breath Sounds, Rales, Rhonchi - Cardiovascular Exam Cardiovascular Exam: REGULAR RHYTHM, +S1, +S2. absent: Murmur - GI/Abdominal Exam GI & Abdominal Exam: Soft, Normal Bowel Sounds. absent: Tenderness Assessment and Plan (1) CA prostate, adenoca Status: Acute (2) Sepsis Status: Acute (3) UTI (urinary tract infection) Status: Acute (4) Acute urinary retention Status: Acute (5) CAD (coronary artery disease) Status: Acute (6) Hyponatremia Status: Acute (7) S/P TURP (status post transurethral resection of prostate) Status: Acute (8) Malnourished Status: Acute (9) S/P orchiectomy Status: Acute (10) PVD (peripheral vascular disease) Status: Acute (11) Pulmonary congestion Status: Acute
--- NOTE | 2017-04-04 23:35 | CP.PCM.PN ---
Subjective - Date & Time of Evaluation Date of Evaluation: 04/04/17 Time of Evaluation: 23:35 - Subjective Subjective: febrile, awake Congested Thick tenacious secretions as per staff suctioned. tolerating IV antibiotics. PATIENT FAILED SWALLOW EVAL HE WAS CHOKING ON LIQUIDS. PATIENT FOR PEG PER GI. Objective - Vital Signs/Intake and Output Vital Signs (last 24 hours): Temp Pulse Resp BP Pulse Ox 97.9 F 91 H 20 101/60 100 04/04/17 15:00 04/04/17 15:00 04/04/17 15:00 04/04/17 15:00 04/04/17 15:00 Intake and Output: 04/04/17 04/05/17 18:59 06:59 Intake Total 800 Output Total 200 Balance 600 - Medications Medications: Current Medications Acetaminophen (Tylenol 325mg Tab) 650 mg PO Q6H PRN PRN Reason: PAIN, MILD 1-3 Last Admin: 04/02/17 02:11 Dose: 650 mg Aspirin (Aspirin Chewable) 81 mg PO DAILY [facility] Last Admin: 04/04/17 10:17 Dose: Not Given Budesonide (Pulmicort Respules) 0.5 mg INH RQ12 [facility] Last Admin: 04/04/17 20:47 Dose: 0.5 mg Clopidogrel Bisulfate (Plavix) 75 mg PO DAILY [facility] Last Admin: 04/04/17 10:19 Dose: Not Given Enoxaparin Sodium (Lovenox) 30 mg SC DAILY [facility] Last Admin: 04/04/17 10:19 Dose: Not Given Phenylephrine HCl 30 mg/ (Dextrose) 253 mls @ 10.12 mls/hr IV .Q24H PRN; Protocol; 20 MCG/MIN PRN Reason: TITRATE PER MD ORDER Last Titration: 03/24/17 16:00 Dose: Infused Metronidazole (Flagyl) 500 mg in 100 mls @ 100 mls/hr IVPB Q12 [facility] Last Admin: 04/04/17 21:09 Dose: 100 mls/hr Vancomycin HCl 1.35 gm/ Sodium (Chloride) 500 mls @ 300 mls/hr IVPB Q24H [facility] Last Admin: 04/04/17 08:37 Dose: 300 mls/hr Dextrose/Sodium Chloride (Dextrose 5%/0.45% Ns 1000 Ml) 1,000 mls @ 75 mls/hr IV .[id number] [facility] Last Admin: 04/04/17 12:48 Dose: 75 mls/hr Piperacillin Sod/Tazobactam (Sod 3.375 gm/ Sodium Chloride) 100 mls @ 100 mls/ hr IVPB Q6H [facility] Last Admin: 04/04/17 17:41 Dose: 100 mls/hr Ipratropium [place] (Atrovent) 0.5 mg IH RQ6 [facility] Last Admin: 04/04/17 20:48 Dose: 0.5 mg Magnesium Oxide (Mag-Ox) 400 mg NG BID [facility] Last Admin: 04/04/17 17:54 Dose: Not Given Metoprolol Tartrate (Lopressor) 25 mg PO BID [facility] Last Admin: 04/04/17 17:54 Dose: Not Given Multivitamins (Hexavitamin) 1 tab PO DAILY [facility] Last Admin: 04/04/17 10:18 Dose: Not Given Potassium Phos/Sodium Phos (Neutra-Phos) 1 pkt PO BID [facility] Last Admin: 04/04/17 17:54 Dose: Not Given Rosuvastatin Calcium (Crestor) 10 mg PO HS [facility] Last Admin: 04/04/17 21:38 Dose: Not Given Tamsulosin HCl (Flomax) 0.4 mg PO DAILY [facility] Last Admin: 04/04/17 10:18 Dose: Not Given Vitamin A (Vitamin A & D Oint Ud Foilpak) 0.5 ea TOP Q4 [facility] Last Admin: 04/04/17 20:18 Dose: Not Given - Labs Labs: 04/02/17 07:24 04/02/17 07:24 PT 19.5 SECONDS (9.7-12.2) H 03/23/17 14:24 INR 1.7 03/23/17 14:24 APTT 49 SECONDS (21-34) H 03/23/17 14:24 - Constitutional Appears: No Acute Distress, Cachectic, Chronically Ill - Head Exam Head Exam: NORMAL INSPECTION - Eye Exam Eye Exam: EOMI, PERRL - ENT Exam ENT Exam: Normal Oropharynx - Neck Exam Neck Exam: Normal Inspection - Respiratory Exam Respiratory Exam: Rhonchi (BILATERAL) - Cardiovascular Exam Cardiovascular Exam: REGULAR RHYTHM, +S1, +S2 - GI/Abdominal Exam GI & Abdominal Exam: Soft, Normal Bowel Sounds - Extremities Exam Extremities Exam: Pedal Edema. absent: Calf Tenderness - Neurological Exam Neurological Exam: Awake, CN II-XII Intact - Psychiatric Exam Psychiatric exam: Normal Mood - Skin Skin Exam: Normal Color Assessment and Plan - Assessment and Plan (Free Text) Assessment: SEPSIS /LEUKOCYTOSIS ?CYSTITIS S/P - B/L ORCHIECTOMY 03/21/17 S/P TURP- S/P SEPSIS SEC. UTI/CHRONIC [place] +VE MRSA. HX . URINARY RETENTION CA OF PROSTATE. S/P HYPONATREMIIA HTN. lEFT FOOT DECUBITUS ULCER-UNSTAGEABLE. /PLAN : PATIENT FOR PEG. ON IV ZOSYN 3.375 MG IV Q6 [facility]. 03/17/17. ON IV VANCOMYCIN TO 1350MG EVERY 24 HOURLY. F/U VANCO TROUGH PRIOR TO THE THIRD DOSE OF ABOVE. ON IV FLAGYL 500 EVERY 12 HOURLY .03/29/17 F/U INDUCED SPUTUM CULTURE.-PENDING. PT DNR/DNI.
[2017-04-05] MEDS: Piperacillin/Tazobact 3.375 GM in Sodium Chloride 0.9% 100 ML IVPB SCH ×2 (00:37→05:38)
[2017-04-05] MEDS: Vitamins A & D Oint UD Foilpak TOP SCH ×4 (00:37→12:00)
[2017-04-05] MEDS: Ipratropium 0.02% Inhal Soln (0.5 mg/2.5 ml) UD IH SCH ×3 (01:38→13:25)
[2017-04-05 06:52] LABS: BLOOD UREA NITROGEN 6 mg/dL (9-20); CALCIUM 7.4 mg/dl (8.6-10.4); GFR AFRICAN-AMERICAN > 60; GFR NON-AFRICAN AMERICAN > 60
[2017-04-05 07:31] VITALS: BP 146/80; PULSE 100; RESP 18; TEMP 99.5; O2SAT 95
[2017-04-05] MEDS: Budesonide 0.5 mg/2 ml Inhal Susp UD INH SCH (07:43)
[2017-04-05] MEDS: VANCOMYCIN IVPB SCH (08:00)
[2017-04-05] MEDS: SODIUM CHLORIDE 0.9% IVPB SCH (08:00)
[2017-04-05] MEDS: Potassium & Sodium Phosphate PO SCH (10:10)
[2017-04-05] MEDS: Magnesium Oxide 400 mg Tab UD NG SCH (10:10)
[2017-04-05] MEDS: Multiple Vitamins Tab PO SCH (10:10)
[2017-04-05] MEDS: metroNIDAZOLE IV 500 mg/100 ml 500 MG/100 ML BAG IVPB SCH (10:17)
[2017-04-05] MEDS: Dextrose 5%/0.45% NS 1,000 ML IV SCH (10:22)
[2017-04-05] MEDS: Enoxaparin 30 mg Syringe SC SCH (10:33)
[2017-04-05 12:19] LABS: HEMOGLOBIN 8.6 g/dL (12.0-18.0); MEAN CELL VOLUME 85.2 fL (80.0-94.0); MEAN CORPUSCULAR HEMOGLOBIN 28.5 pg (27.0-31.0); MEAN CORPUSCULAR HGB CONC 33.4 g/dL (33.0-37.0); MEAN PLATELET VOLUME 8.2 fL (7.2-11.7); RBC 3.01 Mil/uL (4.40-5.90); RED CELL DISTRIBUTION WIDTH 15.1 % (11.5-14.5)
--- NOTE | 2017-04-05 22:07 | CON ---
DATE: 04/05/2017 REASON FOR CONSULTATION: I was called for GI consultation by the admitting MD, Dr. Jaxon Rollins. Patient is seen and fully examined on 04/05/2017 as requested by the admitting staff. The entire chart is reviewed including, but not limited to the most recent lab and radiology study results, current and the previous medication list, current and the previous medical events, allergy to medication list as well as all the available current and the previous medical record, which is very extensive since admission. HISTORY OF PRESENT ILLNESS: This is an 81-year-old male who was initially admitted to the hospital through the Emergency Room with a main complaint of generalized weakness and malaise as well as hematuria, was found to have subsequent drop of platelet counts. Patient had been on rehab center until 2 to 3 days prior to this admission. It has to be mentioned that due to the patient's mental status, all the information obtained from the medical record, medical staff and nursing staff. Subsequently the patient had recurrent episode of aspiration with poor oral intake for which he was treated by the ID employment consultant for aspiration pneumonia. PAST MEDICAL HISTORY: Including, but not limited to hypertension, left femur fracture, COPD, peptic ulcer disease. FAMILY HISTORY: Unknown. SOCIAL HISTORY: No reported history of cigarette smoking or alcohol intake. CURRENT MEDICATIONS: Medication list were reviewed. ALLERGY TO MEDICATION: Unknown. LABORATORY DATA: The most recent lab results done about 3 days ago showed hemoglobin of 7.8, hematocrit 22.9 with normal platelet count, but today's labs showed potassium low of 3.5, with low BUN of 6, low creatinine of 0.5 with low calcium 7.4. Most recent chest x-ray done on 04/01/2017 indicative of pleural thickening with patchy opacification in the right lung with possible infiltrate and diffuse increased interstitial lung markings through both lungs. Please see official report. Patient had reported recently to have very poor oral intake with his recurrent episode of possible aspiration pneumonia. Patient also has [place] catheter due to his recent hematuria and had multiple consultations since admission which 03/02/2017. PHYSICAL EXAMINATION GENERAL: An 81-year-old man with low grade temperature of 99.5 with periods of some productive cough during my physical examination, appeared to be somewhat disoriented. VITAL SIGNS: Pulse of 96, respiratory rate 20 to 22, blood pressure 140/78. HEENT: Showed pale, dry oral mucous membrane, nonicteric sclerae. LUNGS: Scattered bilateral crepitations with decreased air entry at bases. LYMPH NODES: No lymphadenitis or lymphadenopathy. HEART: Positive S1 and S2 with increased rate. ABDOMEN: Soft with slight distention. Bowel sounds are hypoactive with mild generalized tenderness. No mass or organomegaly. No rebound tenderness or guarding. [place] catheter is in place as it was inserted before. EXTREMITIES: There was evidence of muscle wasting syndrome. No clubbing or cyanosis, but mild lower extremities edematous changes. Peripheral pulses are present, but weak bilaterally. NEUROLOGIC: No new reported neurological deficits, sensory or motor. No new focal deficits. It has to be mentioned that the patient has extensive medical record since admission which was reviewed at length and the case discussed with the staff in the floor. IMPRESSION: 1. Malnutrition. 2. Aspiration pneumonia. 3. Dysphagia. 4. Known history of chronic obstructive pulmonary disease, hypertension, left femur fracture. 5. Anemia by recent history, most likely secondary to above. 6. Electrolyte imbalance with hypokalemia and hypocalcemia. 7. Malnutrition with hypoalbuminemia and hypoproteinemia. 8. Patient is a do not resuscitate and do not intubate. 9. Patient is a candidate for percutaneous endoscopic gastrostomy insertion due to recurrent episode of what appeared to be dysphagia with aspiration pneumonia. SUGGESTION: 1. Agree with your plan. 2. Peripheral versus central hyperalimentation. 3. Proton pump inhibitors. 4. Case is to be discussed with Dr. Rollins regarding the PEG insertion as any family members or legal guardian otherwise. Conservative treatment follow. 5/ Calorie counting. Thank you for letting me participate in the outpatient case management. Miriam Alejo MD
--- NOTE | 2017-04-05 23:45 | CP.PCM.DIS ---
Provider - Provider Date of Admission: 03/02/17 22:01 Attending physician: Jaxon Rollins MD Diagnosis - Discharge Diagnosis (1) CA prostate, adenoca Status: Acute (2) Sepsis Status: Acute (3) UTI (urinary tract infection) Status: Acute (4) Acute urinary retention Status: Acute (5) CAD (coronary artery disease) Status: Acute (6) Hyponatremia Status: Acute (7) S/P TURP (status post transurethral resection of prostate) Status: Acute (8) Malnourished Status: Acute (9) S/P orchiectomy Status: Acute (10) PVD (peripheral vascular disease) Status: Acute (11) Pulmonary congestion Status: Acute Hospital Course - Lab Results Lab Results: Micro Results 03/30/17 Unknown Urine Urine Culture - Final Yeast Species 03/23/17 14:17 Nose MRSA Culture (Admit) - Final MRSA NOT DETECTED 03/17/17 22:00 Blood Blood Culture - Final NO GROWTH AFTER 5 DAYS 03/17/17 22:00 Blood Gram Stain - Final TEST NOT PERFORMED 03/17/17 19:35 Blood Blood Culture - Final NO GROWTH AFTER 5 DAYS 03/17/17 19:35 Blood Gram Stain - Final TEST NOT PERFORMED 03/18/17 Unknown Urine,Catheterized Urine Culture - Final No Growth (<1,000 CFU/ML) 03/14/17 11:14 Urine,Clean Catch Urine Culture - Final No Growth (<1,000 CFU/ML) 03/08/17 14:46 Urine,Romero Urine Culture - Final No Growth (<1,000 CFU/ML) 03/02/17 20:30 Blood Blood Culture - Final NO GROWTH AFTER 5 DAYS 03/02/17 20:30 Blood Gram Stain - Final TEST NOT PERFORMED 03/02/17 21:00 Blood Blood Culture - Final NO GROWTH AFTER 5 DAYS 03/02/17 21:00 Blood Gram Stain - Final TEST NOT PERFORMED 03/06/17 05:53 Urine Urine Culture - Final No Growth (<1,000 CFU/ML) 03/02/17 21:22 Urine,Romero Urine Culture - Final Methicillin Resistant S Aureus Most Recent Lab Values WBC 13.0 K/uL (4.8-10.8) H D 04/05/17 12:03 RBC 3.01 Mil/uL (4.40-5.90) L 04/05/17 12:03 Hgb 8.6 g/dL (12.0-18.0) L 04/05/17 12:03 Hct 25.7 % (35.0-51.0) L 04/05/17 12:03 MCV 85.2 fL (80.0-94.0) 04/05/17 12:03 MCH 28.5 pg (27.0-31.0) 04/05/17 12:03 MCHC 33.4 g/dL (33.0-37.0) 04/05/17 12:03 RDW 15.1 % (11.5-14.5) H 04/05/17 12:03 Plt Count 201 K/uL (130-400) 04/05/17 12:03 MPV 8.2 fL (7.2-11.7) 04/05/17 12:03 Neut % (Auto) 90.3 % (50.0-75.0) H 04/02/17 07:24 Lymph % (Auto) 7.5 % (20.0-40.0) L 04/02/17 07:24 [place] % (Auto) 1.9 % (0.0-10.0) 04/02/17 07:24 Eos % (Auto) 0.0 % (0.0-4.0) 04/02/17 07:24 Baso % (Auto) 0.3 % (0.0-2.0) 04/02/17 07:24 Neut # 5.4 K/uL (1.8-7.0) 04/02/17 07:24 Lymph # 0.4 K/uL (1.0-4.3) L 04/02/17 07:24 [place] # 0.1 K/uL (0.0-0.8) 04/02/17 07:24 Eos # 0.0 K/uL (0.0-0.7) 04/02/17 07:24 Baso # 0.0 K/uL (0.0-0.2) 04/02/17 07:24 Neutrophils % (Manual) 92 % (50-75) H 04/02/17 07:24 Band Neutrophils % 1 % (0-2) 04/02/17 07:24 Lymphocytes % (Manual) 6 % (20-40) L 04/02/17 07:24 Reactive Lymphs % 1 % (0-0) H 03/30/17 07:36 Monocytes % (Manual) 1 % (0-10) 04/02/17 07:24 Basophils % (Manual) 1 % (0-2) 03/30/17 07:36 Toxic Granulation Present 04/01/17 06:56 Platelet Estimate Normal (NORMAL) 04/02/17 07:24 Large Platelets Present 04/02/17 07:24 Polychromasia Slight 04/02/17 07:24 Hypochromasia (manual) Slight 04/02/17 07:24 Poikilocytosis (manual Slight 04/02/17 07:24 Basophilic Stippling Slight 03/30/17 07:36 Anisocytosis (manual) Slight 04/02/17 07:24 Ovalocytes Slight 04/02/17 07:24 Rolanda Cells Slight 04/02/17 07:24 PT 19.5 SECONDS (9.7-12.2) H 03/23/17 14:24 INR 1.7 03/23/17 14:24 APTT 49 SECONDS (21-34) H 03/23/17 14:24 Puncture Site Rr 03/29/17 02:52 pCO2 29 mm/Hg (35-45) L 03/29/17 02:52 pO2 100 mm/Hg (80-100) 03/29/17 02:52 HCO3 25.7 mmol/L (21-28) 03/29/17 02:52 ABG pH 7.52 (7.35-7.45) H 03/29/17 02:52 ABG Total CO2 24.6 mmol/L (22-28) 03/29/17 02:52 ABG O2 Saturation 100.2 % (95-98) H 03/29/17 02:52 ABG Base Excess 1.0 mmol/L (-2.0-3.0) 03/29/17 02:52 ABG Hemoglobin 7.9 g/dL (11.7-17.4) L 03/29/17 02:52 ABG Carboxyhemoglobin 1.6 % (0.5-1.5) H 03/29/17 02:52 POC ABG HHb (Measured) -0.2 % (0.0-5.0) L 03/29/17 02:52 ABG Methemoglobin 1.2 % (0.0-3.0) 03/29/17 02:52 Michael Test Pos 03/29/17 02:52 ABG Potassium 3.3 mmol/L (3.6-5.2) L 03/23/17 14:13 VBG pH 7.29 (7.32-7.43) L 03/02/17 21:15 VBG pCO2 42 mmHg (40-60) 03/02/17 21:15 VBG HCO3 18.2 mmol/L 03/02/17 21:15 VBG Total CO2 21.5 mmol/L (22-28) L 03/02/17 21:15 VBG O2 Sat (Calc) 23.7 % (40-65) L 03/02/17 21:15 VBG Base Excess -6.1 mmol/L (0.0-2.0) L 03/02/17 21:15 VBG Potassium 4.6 mmol/L (3.6-5.2) 03/02/17 21:15 A-a O2 Difference 577.0 mm/Hg 03/29/17 02:52 Respiratory Index 5.8 03/29/17 02:52 Hgb O2 Saturation 97.4 % (95.0-98.0) 03/29/17 02:52 Sodium 136.0 mmol/l (132-148) 03/23/17 14:13 Chloride 110.0 mmol/L (98-107) H 03/23/17 14:13 Glucose 63 mg/dl (75-110) L 03/23/17 14:13 Lactate 1.3 mmol/L (0.7-2.1) 03/23/17 14:13 Liter Flow 15.0 03/29/17 02:52 FiO2 100.0 % 03/29/17 02:52 Sodium 139 mmol/L (132-148) 04/05/17 06:25 Potassium 3.5 mmol/L (3.6-5.2) L 04/05/17 06:25 Chloride 111 mmol/L (98-107) H 04/05/17 06:25 Carbon Dioxide 25 mmol/L (22-30) 04/05/17 06:25 Anion Gap 7 (10-20) L 04/05/17 06:25 BUN 6 mg/dL (9-20) L 04/05/17 06:25 Creatinine 0.5 mg/dL (0.8-1.5) L 04/05/17 06:25 Est GFR ( Amer) > 60 04/05/17 06:25 Est GFR (Non-Af Amer) > 60 04/05/17 06:25 Random Glucose 76 mg/dL (75-110) 04/05/17 06:25 Lactic Acid 3.7 mmol/L (0.7-2.1) H 03/03/17 01:11 Uric Acid 2.9 mg/dL (3.5-8.5) L 03/10/17 19:27 Calcium 7.4 mg/dl (8.6-10.4) L 04/05/17 06:25 Phosphorus 1.6 mg/dL (2.5-4.5) L 03/26/17 06:39 Magnesium 1.7 mg/dL (1.6-2.3) 04/01/17 06:56 Total Bilirubin 0.5 mg/dL (0.2-1.3) 03/26/17 06:39 Direct Bilirubin 0.2 mg/dL (0.0-0.4) 03/08/17 20:28 AST 31 U/L (17-59) 03/26/17 06:39 ALT 28 U/L (21-72) 03/26/17 06:39 Alkaline Phosphatase 54 U/L (38-126) 03/26/17 06:39 Total Creatine Kinase 29 U/L (55-170) L 03/23/17 14:24 CK-MB (Mass) 1.53 ng/mL (0.0-3.38) 03/23/17 14:24 Troponin I 0.0530 ng/mL (0.00-0.120) 03/23/17 22:40 Total Protein 4.7 g/dL (6.3-8.3) L 03/26/17 06:39 Albumin 2.0 g/dL (3.5-5.0) L 03/26/17 06:39 Globulin 2.7 gm/dL (2.2-3.9) 03/26/17 06:39 Albumin/Globulin Ratio 0.8 (1.0-2.1) L 03/26/17 06:39 Prostate Specific Ag 9.95 ng/mL (0.00-4.0) H 03/10/17 07:54 Arterial Blood Potassium 3.3 mmol/L (3.6-5.2) L 03/23/17 14:13 Venous Blood Potassium 4.6 mmol/L (3.6-5.2) 03/02/17 21:15 Urine Color Yellow (YELLOW) 03/30/17 07:48 Urine Clarity Hazy (Clear) 03/30/17 07:48 Urine pH 5.0 (5.0-8.0) 03/30/17 07:48 Ur Specific [place] 1.024 (1.003-1.030) 03/30/17 07:48 Urine Protein 1+ mg/dL (NEGATIVE) H 03/30/17 07:48 Urine Glucose (UA) Normal mg/dL (Normal) 03/30/17 07:48 Urine Ketones Trace mg/dL (NEGATIVE) 03/30/17 07:48 Urine Blood 2+ (NEGATIVE) H 03/30/17 07:48 Urine Nitrate Negative (NEGATIVE) 03/30/17 07:48 Urine Bilirubin Negative (NEGATIVE) 03/30/17 07:48 Urine Urobilinogen Normal mg/dL (0.2-1.0) 03/30/17 07:48 Ur Leukocyte Esterase 2+ [place]oke/uL (Negative) H 03/30/17 07:48 Urine WBC (Auto) 65 /hpf (0-5) H 03/30/17 07:48 Urine RBC (Auto) 8 /hpf (0-3) H 03/30/17 07:48 Urine WBC Clumps (Auto) Few /hpf (NONE) H 03/02/17 21:22 Ur Squamous Epith Cells 1 /hpf (0-5) 03/30/17 07:48 Urine Bacteria Rare (<OCC) 03/30/17 07:48 Hyaline Casts 6-10 /lpf (0-2) H 03/02/17 21:22 Urine Yeast (Budding) Few /hpf (NEGATIVE) H 03/30/17 07:48 Urine Osmolality 468 mosm/kg (300-1000) 03/10/17 16:56 Ur Random Sodium 164 mmol/L 03/10/17 16:56 Ur Random Uric Acid 29.3 mg/dL 03/10/17 16:56 Stool Occult Blood Negative (NEGATIVE) 03/06/17 07:00 Vancomycin Trough 8.5 ug/mL (5.0-10.0) 03/30/17 11:44 C. difficile Ag & Toxin Negative (NEGATIVE) 03/25/17 Unknown Blood Type O POSITIVE 03/23/17 14:24 Antibody Screen Negative 03/23/17 14:24 - Hospital Course Hospital Course: Assessment: SEPSIS /LEUKOCYTOSIS ?CYSTITIS S/P - B/L ORCHIECTOMY 03/21/17 S/P TURP- S/P SEPSIS SEC. UTI/CHRONIC Romero +VE MRSA. HX . URINARY RETENTION CA OF PROSTATE. S/P HYPONATREMIIA HTN. lEFT FOOT DECUBITUS ULCER-UNSTAGEABLE. /PLAN : PATIENT FOR PEG. ON IV ZOSYN 3.375 MG IV Q6 HRLY. 03/17/17. ON IV VANCOMYCIN TO 1350MG EVERY 24 HOURLY. F/U VANCO TROUGH PRIOR TO THE THIRD DOSE OF ABOVE. ON IV FLAGYL 500 EVERY 12 HOURLY .03/29/17 F/U INDUCED SPUTUM CULTURE.-PENDING. PT DNR/DNI. Discharge Exam - Head Exam Head Exam: NORMAL INSPECTION Discharge Plan - Follow Up Plan Condition: FAIR Disposition: Still A Patient
== END 2017-04-05 14:49 | DRG 853 ==
LOC: C.ER 19:35 → C.9E 22:01 → C.3T 22:53 → C.5S 03-09 13:19 → C.9I 03-23 12:40 → C.6T 03-27 18:29
PROVIDERS: ADMIT Internal Medicine; ATTEND Internal Medicine
PROC: 0T9B70Z Drainage of Bladder with Drainage Device, Via Natural or Artificial Opening (ICD-10-PCS; 2017-03-06)
PROC: 0VT08ZZ Resection of Prostate, Via Natural or Artificial Opening Endoscopic (ICD-10-PCS; principal; 2017-03-14 16:00)
PROC: 0VTC0ZZ Resection of Bilateral Testes, Open Approach (ICD-10-PCS; 2017-03-21)
PROC: 047S3ZZ Dilation of Left Posterior Tibial Artery, Percutaneous Approach (ICD-10-PCS; 2017-03-23)
PROC: B41DYZZ Fluoroscopy of Aorta and Bilateral Lower Extremity Arteries using Other Contrast (ICD-10-PCS; 2017-03-23)
PROC: 5A2204Z Restoration of Cardiac Rhythm, Single (ICD-10-PCS; 2017-03-23)
PROC: 05H633Z Insertion of Infusion Device into Left Subclavian Vein, Percutaneous Approach (ICD-10-PCS; 2017-03-23)
DX: A41.02 Sepsis due to Methicillin resistant Staphylococcus aureus (principal); J69.0 Pneumonitis due to inhalation of food and vomit; E46 Unspecified protein-calorie malnutrition; E22.2 Syndrome of inappropriate secretion of antidiuretic hormone; E11.621 Type 2 diabetes mellitus with foot ulcer; E11.51 Type 2 diabetes mellitus with diabetic peripheral angiopathy without gangrene; E83.51 Hypocalcemia; I48.0 Paroxysmal atrial fibrillation; E86.0 Dehydration; C61 Malignant neoplasm of prostate; N30.91 Cystitis, unspecified with hematuria; E78.5 Hyperlipidemia, unspecified; F10.10 Alcohol abuse, uncomplicated; J44.9 Chronic obstructive pulmonary disease, unspecified; B95.62 Methicillin resistant Staphylococcus aureus infection as the cause of diseases classified elsewhere; F17.210 Nicotine dependence, cigarettes, uncomplicated; Z86.73 Personal history of transient ischemic attack (TIA), and cerebral infarction without residual deficits; Z79.4 Long term (current) use of insulin; I25.10 Atherosclerotic heart disease of native coronary artery without angina pectoris; Z66 Do not resuscitate; E87.6 Hypokalemia; R33.8 Other retention of urine; L89.620 Pressure ulcer of left heel, unstageable